=== PATIENT | female | born 1970 | race African-American/Black ===

== ENCOUNTER 2017-07-27 08:02 | Emergency (ER) | payer MEDICAID ==
[2017-07-27] MEDS ORDERED: KETOROLAC TROMETHAMINE INJ/PF 30 MG/1 ML SDV IV ONE (08:48)
[2017-07-27] MEDS ORDERED: NORMAL SALINE 1000 ML 1,000 ML IV ONE (08:48)
[2017-07-27 09:15] LABS: HEMATOCRIT 27.9 % (36.0-47.0); HEMOGLOBIN 8.1 g/dL (12.0-15.5); HGB HCT DIFFERENCE -3.6; MEAN CORPUSCULAR HEMOGLOBIN 17.6 pg (27.0-33.4); MEAN CORPUSCULAR VOLUME 61 fl (80-97); RED BLOOD COUNT 4.61 10^6/uL (3.72-5.28); RED CELL DISTRIBUTION WIDTH 23.4 % (11.5-14.0); WHITE BLOOD COUNT 7.2 10^3/uL (4.0-10.5)
[2017-07-27 09:33] LABS: ALANINE AMINOTRANSFERASE 89 U/L (9-52); ALBUMIN 4.3 g/dL (3.5-5.0); ALKALINE PHOSPHATASE 97 U/L (38-126); ANION GAP 11 (5-19); ASPARTATE AMINO TRANSFERASE 102 U/L (14-36); BILIRUBIN,DIRECT 0.4 mg/dL (0.0-0.4); BILIRUBIN,TOTAL 0.5 mg/dL (0.2-1.3); BLOOD UREA NITROGEN 13 mg/dL (7-20); CALCIUM 9.8 mg/dL (8.4-10.2); CARBON DIOXIDE 23 mmol/L (22-30); CHLORIDE 107 mmol/L (98-107); CREATININE RESULT 0.79 mg/dL (0.52-1.25); GLUCOSE 83 mg/dL (75-110); LIPASE 446.6 U/L (23-300); SODIUM 140.6 mmol/L (137-145); TOTAL PROTEIN 7.4 g/dL (6.3-8.2)
[2017-07-27 09:35] LABS: APPEARANCE,URINE CLEAR; BILIRUBIN,URINE NEGATIVE (NEGATIVE); GLUCOSE, URINE NEGATIVE (NEGATIVE); KETONES,URINE 20 mg/dL (NEGATIVE); LEUKOCYTE ESTERASE,URINE NEGATIVE (NEGATIVE); NITRITE,URINE NEGATIVE (NEGATIVE); PROTEIN,URINE 30 mg/dL (NEGATIVE); URINE SPECIFIC GRAVITY 1.023
[2017-07-27 09:37] LABS: EOSINOPHILS % (MANUAL) 0 % (0-6); LYMPHOCYTES % (MANUAL) 23 % (13-45); TOTAL CELLS COUNTED 100
[2017-07-27 09:39] LABS: HYPOCHROMASIA 2+; MICROCYTOSIS 2+; POLYCHROMASIA SLIGHT
[2017-07-27 09:40] LABS: ANISOCYTOSIS 4+; BASOPHILS % (MANUAL) 5 % (0-2); POIKILOCYTOSIS 1+; SCHISTOCYTES SLIGHT; TARGET CELLS SLIGHT
--- NOTE | 2017-07-27 09:43 | RADIOLOGY REPORT (SQ) ---
EXAM DESCRIPTION: CT LTD RENAL STONE PROTOCOL ON COMPLETED DATE/TIME: 07/27/2017 9:30 am REASON FOR STUDY: right flank pain COMPARISON: None. TECHNIQUE: CT scan of the abdomen and pelvis performed without intravenous or oral contrast. Images reviewed with lung, soft tissue, and bone windows. Reconstructed coronal and sagittal MPR images revi ewed. All images stored on PACS. All CT scanners at this facility use dose modulation, iterative reconstruction, and/or weight based d osing when appropriate to reduce radiation dose to as low as reasonably achievable (ALARA). [facility]: Dose Right [facility]: CareDose [facility]: Dose Right [facility]: Teradose 4D [facility]: [employer] RADIATION DOSE: Up-to-date CT equipment and radiation dose reduction techniques were employed. CTDIv ol: 17.9 mGy. DLP: 972 mGy-cm.mGy. LIMITATIONS: None. FINDINGS: LOWER CHEST: No significant findings. No nodules or infiltrates. NON-CONTRASTED LIVER, SPLEEN, ADRENALS: Evaluation limited by lack of IV contrast. No identified sign ificant masses. PANCREAS: No masses. No peripancreatic inflammatory changes. GALLBLADDER: Surgically absent. RIGHT KIDNEY AND URETER: No suspicious masses. Assessment limited by lack of IV contrast. No signif icant calcifications. No hydronephrosis or hydroureter. LEFT KIDNEY AND URETER: No suspicious masses. Assessment limited by lack of IV contrast. No signifi cant calcifications. No hydronephrosis or hydroureter. AORTA AND RETROPERITONEUM: No aneurysm. No retroperitoneal masses or adenopathy. BOWEL AND PERITONEAL CAVITY: Previous gastric bypass surgery. No obvious masses or inflammatory saenz ges. No free fluid. APPENDIX: Normal. PELVIS, BLADDER, AND ABDOMINAL WALL:Enlarged heterogenous uterus. No free fluid. Bladder normal. Inc isional hernia in the upper abdominal wall containing fat only. BONES: No significant findings. OTHER: No other significant finding. IMPRESSION: 1. PREVIOUS GASTRIC BYPASS SURGERY. INCISIONAL HERNIA IN THE UPPER ABDOMINAL WALL CONTAINING MESENTE DEISI FAT ONLY. 2. ENLARGED HETEROGENOUS UTERUS PROBABLY DUE TO UTERINE FIBROIDS. 3. NO OTHER SIGNIFICANT OR ACUTE PROCESS IN THE ABDOMEN OR PELVIS. COMMENT: Quality ID # [id number]: Final reports with documentation of one or more dose reduction techniques (e.g., Automated exposure control, adjustment of the mA and/or kV according to patient size, use of iterative reconstruction technique) TECHNICAL DOCUMENTATION: JOB ID: [id number] [employer] [facility]- All Rights Reserved
[2017-07-27] MEDS ORDERED: CYCLOBENZAPRINE HCL 10 MG TABLET PO ONE (10:22)
--- NOTE | 2017-07-27 10:22 | ER Document Report ---
ED GI/ - General Chief Complaint: Flank Pain Stated Complaint: BACK PAIN Time Seen by Provider: 07/27/17 08:36 Mode of Arrival: Ambulatory Information source: Patient Notes: Patient is a 47-year-old female who presents to the ER today for right lower back pain 4 days. Patient admits to some nausea but no vomiting. She denies any dysuria, history of kidney stones, hematuria. She denies any injury, heavy lifting. TRAVEL OUTSIDE OF THE [place] IN LAST 30 DAYS: No - Related Data Allergies/Adverse Reactions: No Known Allergies Allergy (Verified 07/27/17 08:06) Past Medical History - General Information source: Patient - Social History Smoking Status: Current Every Day Smoker Chew tobacco use (# tins/day): No Frequency of alcohol use: Social Drug Abuse: None Family History: Reviewed & Not Pertinent Patient has suicidal ideation: No Patient has homicidal ideation: No Renal/ Medical History: Denies: Hx Peritoneal Dialysis Psychiatric Medical History: Denies: Hx Depression Past Surgical History: Reports: Hx Abdominal Surgery - gastric bypass, Hx Cholecystectomy, Hx Gastric Bypass Surgery, Hx Tubal Ligation - Immunizations Hx Diphtheria, Pertussis, Tetanus Vaccination: Yes Review of Systems - Review of Systems Constitutional: No symptoms reported EENT: No symptoms reported Cardiovascular: No symptoms reported Respiratory: No symptoms reported Gastrointestinal: No symptoms reported Genitourinary: See HPI Female Genitourinary: No symptoms reported Musculoskeletal: See HPI Skin: No symptoms reported Hematologic/Lymphatic: No symptoms reported Neurological/Psychological: No symptoms reported Physical Exam - Vital signs Vitals: Temp Pulse Resp BP Pulse Ox 99.1 F 93 18 131/94 H 99 07/27/17 08:06 07/27/17 08:06 07/27/17 08:06 07/27/17 08:06 07/27/17 08:06 - Notes Notes: PHYSICAL EXAMINATION: GENERAL: Uncomfortable appearing, but in no acute distress. HEAD: Atraumatic, normocephalic. EYES: Pupils equal round and reactive to light, extraocular movements intact, sclera anicteric, conjunctiva are normal. NECK: Normal range of motion, supple without lymphadenopathy LUNGS: CTAB and equal. No wheezes rales or rhonchi. HEART: Regular rate and rhythm without murmurs ABDOMEN: Soft, no tenderness. No guarding, no rebound BACK: no vertebral tenderness, normal ROM GI/: no CVA tenderness EXTREMITIES: Normal range of motion, no pitting edema. No cyanosis. NEUROLOGICAL: Cranial nerves grossly intact. Normal sensory/motor exams. PSYCH: Normal mood, normal affect. SKIN: Warm, Dry, normal turgor, no rashes or lesions noted Course - Re-evaluation Re-evalutation: 07/27/17 10:20 lab work is unremarkable, urinalysis is unremarkable, no hematuria, CAT scan renal protocol reveals no acute pathology. Patient be sent home with muscle relaxers for low back pain. - Vital Signs Vital signs: Temp Pulse Resp BP Pulse Ox 99.1 F 93 18 131/94 H 100 07/27/17 08:06 07/27/17 08:06 07/27/17 08:06 07/27/17 08:06 07/27/17 09:18 - Laboratory Result Diagrams: 07/27/17 08:57 07/27/17 08:57 Laboratory results interpreted by me: 07/27/17 07/27/17 07/27/17 08:57 08:57 08:57 Hgb 8.1 L Hct 27.9 L MCV 61 L MCH 17.6 L MCHC 29.0 L RDW 23.4 H Basophils % (Manual) 5 H Abs Basophils (Manual) 0.4 H AST 102 H ALT 89 H Lipase 446.6 H Urine Protein 30 H Urine Ketones 20 H Urine Urobilinogen 2.0 H Discharge - Discharge Clinical Impression: Low back pain Qualifiers: Chronicity: acute Back pain laterality: right Sciatica presence: without sciatica Qualified Code(s): M54.5 - Low back pain Condition: Stable Disposition: HOME, SELF-CARE Additional Instructions: Return immediately for any new or worsening symptoms. Follow up with primary care provider, call tomorrow to make followup appointment. Prescriptions: Cyclobenzaprine HCl [Flexeril 10 mg Tablet] 10 mg PO TIDP PRN #15 tab PRN Reason:
[2017-07-27 10:34] VITALS: BP 150/91
== END 2017-07-27 10:34 | disposition home or self-care (01) ==
LOC: ER 08:02
DX: M54.5 Low back pain (principal); R11.0 Nausea; F17.200 Nicotine dependence, unspecified, uncomplicated; Z98.84 Bariatric surgery status; Z90.49 Acquired absence of other specified parts of digestive tract; Z98.51 Tubal ligation status
CPT/HCPCS: 99284; 96361; 96374; 36415; 83690; 85025; 81025; 80053; 81001; 76380; J3490; J1885; J7030

== ENCOUNTER 2017-08-26 08:30 | Emergency (ER) | payer MEDICAID ==
--- NOTE | 2017-08-26 09:06 | ER Document Report ---
ED General - General Chief Complaint: Flank Pain Stated Complaint: LOWER BACK AND ABDOMINAL PAIN Time Seen by Provider: 08/26/17 09:01 Mode of Arrival: Ambulatory Information source: Patient TRAVEL OUTSIDE OF THE [place] IN LAST 30 DAYS: No - HPI Onset: Other - 3 weeks Onset/Duration: Gradual, Constant Quality of pain: Dull Associated symptoms: None Exacerbated by: Denies Relieved by: Denies Recently seen / treated by doctor: Yes Notes: Patient is a 47-year-old female with no significant medical problems. Patient reports a 3 week history of right lower back pain not associated with trauma. Patient was seen by her primary care provider for same and given muscle relaxers for a presumed muscular skeletal etiology. Patient states the pain is continuing. Patient also reports a one-week history of abdominal pain. No vomiting or diarrhea. No fevers or chills. She does not have any urinary complaints. - Related Data Allergies/Adverse Reactions: No Known Allergies Allergy (Verified 08/26/17 08:34) Past Medical History - General Information source: Patient - Social History Smoking Status: Never Smoker Family History: Reviewed & Not Pertinent Renal/ Medical History: Denies: Hx Peritoneal Dialysis Psychiatric Medical History: Denies: Hx Depression Past Surgical History: Reports: Hx Abdominal Surgery - gastric bypass, Hx Cholecystectomy, Hx Gastric Bypass Surgery, Hx Tubal Ligation - Immunizations Hx Diphtheria, Pertussis, Tetanus Vaccination: Yes Review of Systems - Review of Systems Gastrointestinal: Abdominal pain. denies: Diarrhea, Nausea, Vomiting, Constipation -: Yes All other systems reviewed and negative Physical Exam - Vital signs Vitals: Temp Pulse Resp BP Pulse Ox 98.3 F 91 16 144/83 H 100 08/26/17 08:34 08/26/17 08:34 08/26/17 08:34 08/26/17 08:34 08/26/17 08:34 Interpretation: Normal - General General appearance: Appears well, Alert - HEENT Head: Normocephalic, Atraumatic Eyes: Normal Pupils: PERRL - Respiratory Respiratory status: No respiratory distress Chest status: Nontender Breath sounds: Normal Chest palpation: Normal - Cardiovascular Rhythm: Regular Heart sounds: Normal auscultation Murmur: No - Abdominal Inspection: Normal Distension: No distension Bowel sounds: Normal Tenderness: Nontender Organomegaly: No organomegaly - Back Back: Normal, Nontender. No: CVA tenderness - Extremities General upper extremity: Normal inspection, Nontender, Normal color, Normal ROM , Normal temperature General lower extremity: Normal inspection, Nontender, Normal color, Normal ROM , Normal temperature, Normal weight bearing. No: Katie's sign - Neurological Neuro grossly intact: Yes Cognition: Normal Orientation: AAOx4 Gilbert Coma Scale Eye Opening: Spontaneous Gilbert Coma Scale Verbal: Oriented Katie Coma Scale Motor: Obeys Commands Katie Coma Scale Total: 15 Speech: Normal Motor strength normal: LUE, RUE, LLE, RLE Sensory: Normal - Psychological Associated symptoms: Normal affect, Normal mood - Skin Skin Temperature: Warm Skin Moisture: Dry Skin Color: Normal Course - Re-evaluation Re-evalutation: 08/26/17 09:47 Lab reported patient's hemoglobin is 7.2. When compared with previous hemoglobin reports, not significantly changed from baseline. 08/26/17 10:10 Lipase minimally elevated. Doubt that is the source of patient's right flank pain. Will get CT renal stone protocol due to some blood in the urine. 08/26/17 10:47 Emergency department workup reviewed and discussed with patient. Need for primary care follow-up discussed as well. We will treat her pain. Patient is aware of her chronic anemia. - Vital Signs Vital signs: Temp Pulse Resp BP Pulse Ox 98.3 F 91 16 144/83 H 100 08/26/17 08:34 08/26/17 08:34 08/26/17 08:34 08/26/17 08:34 08/26/17 08:34 - Laboratory Result Diagrams: 08/26/17 09:28 08/26/17 09:28 Laboratory results interpreted by me: 08/26/17 08/26/17 08/26/17 09:20 09:28 09:28 Hgb 7.2 L Hct 23.9 L MCV 59 L MCH 17.7 L MCHC 30.1 L RDW 21.2 H AST 56 H Lipase 454.8 H Urine Protein 30 H Urine Ketones TRACE H Urine Blood SMALL H Urine Urobilinogen 4.0 H - Diagnostic Test Radiology reviewed: Reports reviewed Radiology results interpreted by me: 08/26/17 10:46 CT abdomen pelvis report is nothing acute per radiologist. Discharge - Discharge Clinical Impression: Flank pain Condition: Good Disposition: HOME, SELF-CARE Instructions: Flank Pain ([facility]) Additional Instructions: Follow-up with your primary care provider. Return to the emergency department if worse or for any other problems. Prescriptions: Tramadol HCl 50 mg PO QIDP PRN #20 tablet PRN Reason: pain
[2017-08-26 09:39] LABS: APPEARANCE,URINE SLIGHTLY-CLOUDY; BILIRUBIN,URINE NEGATIVE (NEGATIVE); GLUCOSE, URINE NEGATIVE (NEGATIVE); KETONES,URINE TRACE mg/dL (NEGATIVE); LEUKOCYTE ESTERASE,URINE NEGATIVE (NEGATIVE); NITRITE,URINE NEGATIVE (NEGATIVE); PROTEIN,URINE 30 mg/dL (NEGATIVE); URINE SPECIFIC GRAVITY 1.025
[2017-08-26 09:42] LABS: HEMATOCRIT 23.9 % (36.0-47.0); HGB HCT DIFFERENCE -2.3; MEAN CORPUSCULAR HEMOGLOBIN 17.7 pg (27.0-33.4); MEAN CORPUSCULAR HGB CONC 30.1 g/dL (32.0-36.0); MEAN CORPUSCULAR VOLUME 59 fl (80-97); RED BLOOD COUNT 4.07 10^6/uL (3.72-5.28); RED CELL DISTRIBUTION WIDTH 21.2 % (11.5-14.0)
[2017-08-26 10:01] LABS: ALANINE AMINOTRANSFERASE 44 U/L (9-52); ALKALINE PHOSPHATASE 111 U/L (38-126); ANION GAP 10 (5-19); ASPARTATE AMINO TRANSFERASE 56 U/L (14-36); BILIRUBIN,DIRECT 0.4 mg/dL (0.0-0.4); BILIRUBIN,TOTAL 0.5 mg/dL (0.2-1.3); BLOOD UREA NITROGEN 10 mg/dL (7-20); CALCIUM 9.5 mg/dL (8.4-10.2); CARBON DIOXIDE 26 mmol/L (22-30); CHLORIDE 105 mmol/L (98-107); CREATININE RESULT 0.66 mg/dL (0.52-1.25); GLUCOSE 93 mg/dL (75-110); LIPASE 454.8 U/L (23-300); POTASSIUM 3.6 mmol/L (3.6-5.0); SODIUM 140.9 mmol/L (137-145); TOTAL PROTEIN 6.9 g/dL (6.3-8.2)
[2017-08-26 10:05] LABS: BASOPHILS % (MANUAL) 1 % (0-2); EOSINOPHILS % (MANUAL) 0 % (0-6); LYMPHOCYTES % (MANUAL) 22 % (13-45); TOTAL CELLS COUNTED 100
[2017-08-26 10:11] LABS: POLYCHROMASIA 1+
[2017-08-26 10:12] LABS: ANISOCYTOSIS 2+; HYPOCHROMASIA 4+; MICROCYTOSIS 4+
[2017-08-26 10:14] LABS: HEMOGLOBIN 7.2 g/dL (12.0-15.5)
--- NOTE | 2017-08-26 10:43 | RADIOLOGY REPORT (SQ) ---
EXAM DESCRIPTION: CT LTD RENAL STONE PROTOCOL ON COMPLETED DATE/TIME: 08/26/2017 10:22 am REASON FOR STUDY: right flank pain, hematuria COMPARISON: 07/27/2017 TECHNIQUE: CT scan of the abdomen and pelvis performed without intravenous or oral contrast. Images reviewed with lung, soft tissue, and bone windows. Reconstructed coronal and sagittal MPR images revi ewed. All images stored on PACS. All CT scanners at this facility use dose modulation, iterative reconstruction, and/or weight based d osing when appropriate to reduce radiation dose to as low as reasonably achievable (ALARA). [facility]: Dose Right [facility]: CareDose [facility]: Dose Right [facility]: Teradose 4D [facility]: [employer] RADIATION DOSE: Up-to-date CT equipment and radiation dose reduction techniques were employed. CTDIv ol: 18.4 mGy. DLP: 928 mGy-cm.mGy. LIMITATIONS: None. FINDINGS: LOWER CHEST: No significant findings. No nodules or infiltrates. NON-CONTRASTED LIVER, SPLEEN, ADRENALS: Evaluation limited by lack of IV contrast. No identified sign ificant masses. PANCREAS: No masses. No peripancreatic inflammatory changes. GALLBLADDER: Status post cholecystectomy RIGHT KIDNEY AND URETER: No suspicious masses. Assessment limited by lack of IV contrast. No signif icant calcifications. No hydronephrosis or hydroureter. LEFT KIDNEY AND URETER: No suspicious masses. Assessment limited by lack of IV contrast. No signifi cant calcifications. No hydronephrosis or hydroureter. AORTA AND RETROPERITONEUM: No aneurysm. No retroperitoneal masses or adenopathy. BOWEL AND PERITONEAL CAVITY: No obvious masses or inflammatory changes. No free fluid. APPENDIX: Normal. PELVIS, BLADDER, AND ABDOMINAL WALL The previously described enlarged heterogeneous uterus is again i dentified and appears unchanged. Again the appearance is most consistent with a fibroid uterus. No f ree fluid. Bladder normal. The previously described incisional hernia containing fat in the upper ab domen is again identified and appears unchanged BONES: No significant findings. OTHER: Again the patient is status post prior gastric bypass surgery. IMPRESSION: No significant interval change as compared to the previous study. The previously descri bed incisional hernia in the upper abdomen containing fat is again identified and appears unchanged. The previously described enlarged heterogeneous uterus is again identified and appears unchanged. O ther findings as noted above COMMENT: Quality ID # [id number]: Final reports with documentation of one or more dose reduction techniques (e.g., Automated exposure control, adjustment of the mA and/or kV according to patient size, use of iterative reconstruction technique) TECHNICAL DOCUMENTATION: JOB ID: [id number] [employer]- All Rights Reserved
[2017-08-26] MEDS ORDERED: TRAMADOL HCL 50 MG TABLET PO ONE (10:59)
[2017-08-26 11:17] VITALS: BP 139/87
== END 2017-08-26 11:17 | disposition home or self-care (01) ==
LOC: ER 08:30
DX: R10.9 Unspecified abdominal pain (principal); M54.5 Low back pain; D64.9 Anemia, unspecified; R31.9 Hematuria, unspecified; R74.8 Abnormal levels of other serum enzymes; Z98.84 Bariatric surgery status; Z90.49 Acquired absence of other specified parts of digestive tract
CPT/HCPCS: 36415; 76380; 80053; 81001; 83690; 85025; 99284

== ENCOUNTER 2019-07-19 08:10 | Emergency (ER) | payer MEDICAID ==
[2019-07-19] MEDS ORDERED: MORPHINE SULFATE 10 MG/ML INJ IV ONE (09:07)
--- NOTE | 2019-07-19 09:07 | ER Document Report ---
ED GI/ - General Chief Complaint: Flank Pain Stated Complaint: LOWER BACK PAIN Time Seen by Provider: 07/19/19 08:51 Primary Care Provider: [facility] [Provider Group] - Follow up tomorrow Notes: Patient is a 49-year-old female who presents emergency department with a chief complaint of right-sided back pain. She states that she has had her pain for the past 2 and half weeks. She was not doing anything in particular, but she was opening up a sippy cup 2 days ago and her back pain. She states it feels like there is a kidney stone. She took some Advil, but has not had the past 2 days. Pain comes and goes. Patient surgical history of a gastric bypass 15 years ago she also has had a cholecystectomy. She has had a tubal ligation. Patient states that she is anemic and has had multiple blood transfusions in the past. Denies any dysuria, hematuria, diarrhea, or vomiting. She states that she sometimes feels nauseous when the pain comes, but is not nauseous at this time. Patient states that she has dark stools, but states she is currently on iron. TRAVEL OUTSIDE OF THE [place] IN LAST 30 DAYS: No - Related Data Allergies/Adverse Reactions: No Known Allergies Allergy (Verified 07/19/19 08:13) Past Medical History - Social History Smoking Status: Current Every Day Smoker Frequency of alcohol use: Social Drug Abuse: None Family History: Reviewed & Not Pertinent Patient has suicidal ideation: No Patient has homicidal ideation: No Renal/ Medical History: Denies: Hx Peritoneal Dialysis Psychiatric Medical History: Denies: Hx Depression Past Surgical History: Reports: Hx Abdominal Surgery - gastric bypass, Hx Cholecystectomy, Hx Gastric Bypass Surgery, Hx Tubal Ligation - Immunizations Hx Diphtheria, Pertussis, Tetanus Vaccination: Yes Review of Systems - Review of Systems Notes: REVIEW OF SYSTEMS: CONSTITUTIONAL : Denies recent illness. Denies recent unintentional weight loss. Denies fever, chills, or sweats. EENT: Denies eye, ear, throat, or mouth pain, discharge, or symptoms. Denies nasal or sinus congestion. CARDIOVASCULAR: Denies chest pain. RESPIRATORY: Denies shortness of breath, cough, congestion, difficulty breathing, or wheezing. GASTROINTESTINAL: See HPI. GENITOURINARY: Denies difficulty urinating, burning, blood in urine, urgency or frequency. MUSCULOSKELETAL: See HPI. Denies joint pain or swelling. SKIN: Denies rash, itchiness, or lesions HEMATOLOGIC : Denies easy bruising or bleeding. LYMPHATIC: Denies swollen, painful, enlarged glands. NEUROLOGICAL: Denies no numbness or tingling denies weakness. Denies headache. Denies altered mental status. Denies alteration in speech. PSYCHIATRIC: Denies stress, anxiety, alteration in sleep patterns, or depression. All other systems reviewed and negative. Physical Exam - Vital signs Vitals: Temp Pulse Resp BP Pulse Ox 98.6 F 109 H 16 143/72 H 98 07/19/19 08:13 07/19/19 08:13 07/19/19 08:13 07/19/19 08:13 07/19/19 08:13 - Notes Notes: PHYSICAL EXAMINATION: GENERAL: Appears well, healthy, well-nourished, no acute distress. HEAD: Normocephalic, atraumatic. EYES: PERRL, conjunctiva normal, all extraocular movements intact, sclera nonicteric ENT: Moist mucous membranes. NECK: Supple, no noticeable swelling, redness, rash. Normal range of motion. LUNGS: Equal breath sounds bilaterally and clear to auscultation. No wheezes rales or rhonchi. CARDIOVASCULAR: S1-S2, regular rate, regular rhythm. Radial pulses 2+, normal. ABDOMEN: Normoactive bowel sounds. Soft, tenderness noted to right side of abdomen. Palpable mass to the mid left abdomen. EXTREMITIES: Normal strength and range of motion, no pitting or edema. No cyanosis. NEUROLOGICAL: Moves all extremities upon command. Strength 5/5 in all extremities. PSYCH: Normal mood, normal affect. SKIN: Warm, dry. No rash, lesions, ulcerations noted. Normal skin turgor. Course - Re-evaluation Re-evalutation: 07/19/19 09:40 Patient's hemoglobin is 6 at this time. She will be typed and screened and transfused 2 units of PRBCs.Beautiful day today but he was commenting about patient's hematocrit is 20.9. No leukocytosis noted. Chemistries show a lipase of 422. AST is elevated at 153. 07/19/19 12:00 Patient states her son has autism and she needs to pick him up from the bus at 1400. I spoke with Fitz, the director of casework department. She will speak with the patient. 07/19/19 13:[address] of the abdomen pelvis shows duct dilation. I called Dr. Bansal, the GI doctor on-call. He does not to ERCPs. I will call in another facility. 07/19/19 13:05 I called [facility] and left a message. Awaiting callback. 07/19/19 13:11 [facility] and the GI doctor instrument person does not do ERCP's. 07/19/19 13:17 I called [facility] and images will be sent. 07/19/19 14:53 I spoke with SANTIAGO Batres at [facility]. The patient will be accepted for transfer for an ERCP. 07/19/19 17:03 Patient's urinalysis is back and it shows a large amount of blood. Patient states that she is hungry and there is apparently a wait list at [facility]. I will order a diet for the patient at this time. Once the patient has a bed assignment at [facility], the patient will be placed n.p.o. in hopes for a helpful ERCP. 07/19/19 20:26 The patient has decided to leave AGAINST MEDICAL ADVICE. Discussed the risks of leaving. She is still wanting to leave. She received her 2 units of PRBCs here in the emergency department. I told her that if she continues to have pain, she needs to immediately go to [facility]. I called [facility] and informed them that the patient is leaving AGAINST MEDICAL ADVICE. She is to follow-up with her primary care provider and I gave contact information for [facility]. - Vital Signs Vital signs: Temp Pulse Resp BP Pulse Ox 98.1 F 79 16 142/82 H 97 07/19/19 20:38 07/19/19 20:38 07/19/19 20:38 07/19/19 20:38 07/19/19 20:38 - Laboratory Result Diagrams: 07/19/19 09:14 07/19/19 09:14 Laboratory results interpreted by me: 07/19/19 07/19/19 07/19/19 09:14 09:14 09:40 RBC 3.63 L Hgb 6.0 L Hct 20.9 L MCV 58 L MCH 16.4 L MCHC 28.6 L RDW 23.4 H Basophils % (Manual) 3 H Abs Basophils (Manual) 0.3 H Chloride 111 H AST 153 H Lipase 422.3 H Urine Blood Urine Urobilinogen Crossmatch See Detail 07/19/19 15:25 RBC Hgb Hct MCV MCH MCHC RDW Basophils % (Manual) Abs Basophils (Manual) Chloride AST Lipase Urine Blood LARGE H Urine Urobilinogen 4.0 H Crossmatch Discharge - Discharge Clinical Impression: Abdominal pain Qualifiers: Abdominal location: right upper quadrant Qualified Code(s): R10.11 - Right upper quadrant pain Anemia Qualifiers: Anemia type: iron deficiency Iron deficiency anemia type: unspecified iron deficiency Qualified Code(s): D50.9 - Iron deficiency anemia, unspecified Condition: Fair Disposition: AGAINST MEDICAL ADVICE Additional Instructions: You were seen today in the emergency department for abdominal pain. Your blood counts were low and you received 2 units of blood here in the emergency department. You need to have an ERCP done to evaluate your gallbladder duct. You are being sent home with [place], medication for pain. You can take 1 tablet every 6 hours as needed. Please use these sparingly, as you only have a limited amount. You were scheduled to go to [facility], but are deciding to leave AGAINST MEDICAL ADVICE. If you continue to have pain of have worsening pain, please go straight to [facility] in [place]. Please follow- up with your primary care provider tomorrow. If you choose to follow-up outpatient with the GI doctor, you can call the information below. Please try to make an appointment. [facility] [phone] [facility] [address] [place], [id number] [facility] [Provider Group] - Follow up tomorrow
[2019-07-19] MEDS ORDERED: NORMAL SALINE 1000 ML 1,000 ML IV ONE (09:08)
[2019-07-19] MEDS ORDERED: NORMAL SALINE 250 ML IV PRN (09:38)
[2019-07-19 09:46] LABS: HEMATOCRIT 20.9 % (36.0-47.0); MEAN CORPUSCULAR HEMOGLOBIN 16.4 pg (27.0-33.4); MEAN CORPUSCULAR HGB CONC 28.6 g/dL (32.0-36.0); MEAN CORPUSCULAR VOLUME 58 fl (80-97); PLATELET COUNT 385 10^3/uL (150-450); RED BLOOD COUNT 3.63 10^6/uL (3.72-5.28); RED CELL DISTRIBUTION WIDTH 23.4 % (11.5-14.0); WHITE BLOOD COUNT 8.4 10^3/uL (4.0-10.5)
[2019-07-19 09:56] LABS: ALBUMIN 3.7 g/dL (3.5-5.0); ALKALINE PHOSPHATASE 119 U/L (38-126); ANION GAP 7 (5-19); ASPARTATE AMINO TRANSFERASE 153 U/L (14-36); BILIRUBIN,DIRECT 0.1 mg/dL (0.0-0.4); BILIRUBIN,TOTAL 0.4 mg/dL (0.2-1.3); BLOOD UREA NITROGEN 11 mg/dL (7-20); CALCIUM 9.1 mg/dL (8.4-10.2); CARBON DIOXIDE 24 mmol/L (22-30); CHLORIDE 111 mmol/L (98-107); GLUCOSE 79 mg/dL (75-110); POTASSIUM 3.6 mmol/L (3.6-5.0); TOTAL PROTEIN 6.7 g/dL (6.3-8.2)
[2019-07-19 10:10] LABS: ABSOLUTE LYMPHOCYTES# (MANUAL) 2.3 10^3/uL (0.5-4.7); ABSOLUTE MONOCYTES # (MANUAL) 0.4 10^3/uL (0.1-1.4); BASOPHILS % (MANUAL) 3 % (0-2); EOSINOPHILS % (MANUAL) 1 % (0-6); LYMPHOCYTES % (MANUAL) 24 % (13-45); MONOCYTES % (MANUAL) 5 % (3-13); SEGMENTED NEUTROPHILS % (MAN) 64 % (42-78); TOTAL CELLS COUNTED 100
[2019-07-19 10:12] LABS: ANISOCYTOSIS 3+; HYPOCHROMASIA 3+; OVALOCYTES SLIGHT; PLATELET COMMENT ADEQUATE; POIKILOCYTOSIS SLIGHT; POLYCHROMASIA 1+; TARGET CELLS SLIGHT; TEAR DROP CELLS SLIGHT
--- NOTE | 2019-07-19 10:51 | RADIOLOGY REPORT (SQ) ---
EXAM DESCRIPTION: CT ABD/PELVIS WITH IV ONLY COMPLETED DATE/TIME: 07/19/2019 10:23 am REASON FOR STUDY: abd/flank pain COMPARISON: 08/26/2017 TECHNIQUE: CT scan of the abdomen and pelvis performed using helical scanning technique with dynamic intravenous contrast injection. No oral contrast. Images reviewed with lung, soft tissue, and bone windows. Reconstructed coronal and sagittal MPR images reviewed. Delayed images for evaluation of the urinary system also acquired. All images stored on PACS. All CT scanners at this facility use dose modulation, iterative reconstruction, and/or weight based d osing when appropriate to reduce radiation dose to as low as reasonably achievable (ALARA). [facility]: Dose Right [facility]: CareDose [facility]: Dose Right [facility]: Teradose 4D [facility]: [employer] CONTRAST TYPE AND DOSE: contrast/concentration: Isovue 350.00 mg/ml; Total Contrast Delivered: 100.0 ml; Total Saline Delivered: 46.6 ml RENAL FUNCTION: Creatinine 0.63 RADIATION DOSE: CT Rad equipment meets quality standard of care and radiation dose reduction techniq ues were employed. CTDIvol: 18.9 - 20.2 mGy. DLP: 2052 mGy-cm.. LIMITATIONS: None. FINDINGS: LOWER CHEST: No significant findings. No nodules or infiltrates. LIVER: Normal size. No masses. No dilated ducts. SPLEEN: Normal size. No focal lesions. PANCREAS: No masses. No significant calcifications. No adjacent inflammation or peripancreatic fluid collections. Pancreatic duct not dilated. GALLBLADDER: Surgically absent. CBD is dilated measuring up to 18 mm, increased from prior. No sign ificant intrahepatic ductal dilation. ADRENAL GLANDS: No significant masses or asymmetry. RIGHT KIDNEY AND URETER: No solid masses. No significant calcifications. No hydronephrosis or hyd roureter. LEFT KIDNEY AND URETER: No solid masses. No significant calcifications. No hydronephrosis or hydr oureter. AORTA AND VESSELS: No aneurysm. No dissection. Renal arteries, SMA, celiac without stenosis. RETROPERITONEUM: No retroperitoneal adenopathy or hemorrhage. BOWEL AND PERITONEAL CAVITY: Evidence of prior gastric bypass. Anastomotic staple line within the le ft lower quadrant with mild dilated bowel loop, likely postsurgical. No focal bowel wall thickening. No evidence of intestinal obstruction. APPENDIX: (series 601, image 26 - 29). PELVIS: Unremarkable urinary bladder. I unchanged enlarged heterogeneous uterus likely secondary to uterine leiomyoma. No free fluid or adenopathy. ABDOMINAL WALL: Unchanged fat containing midline upper abdominal hernia. No mass. BONES: No acute bony abnormality. No suspicious lytic or blastic osseous lesions. OTHER: No other significant finding. IMPRESSION: 1. Status post cholecystectomy with dilation of the CBD measuring up to 17 mm, more julio cesar n expected status post cholecystectomy and mildly increased from prior exams. No significant intrahe patic ductal dilation or distal obstructing lesion identified. Recommend correlation with LFTs. MRC P or ERCP could be considered if clinical evidence of biliary obstruction. 2. Normal appendix without other evidence of acute intra-abdominal/pelvic process. TECHNICAL DOCUMENTATION: JOB ID: [id number] Quality ID # [id number]: Final reports with documentation of one or more dose reduction techniques (e.g., Au tomated exposure control, adjustment of the mA and/or kV according to patient size, use of iterative reconstruction technique) 2010 [employer]- All Rights Reserved Reading location - IP/workstation name: [email or web address]
[2019-07-19] MEDS ORDERED: HYDROCODONE/ACETAMINOPHEN 5-325 MG TABLET PO ONE (13:56)
[2019-07-19 15:48] LABS: APPEARANCE,URINE CLEAR; BILIRUBIN,URINE NEGATIVE (NEGATIVE); COLOR,URINE YELLOW; GLUCOSE, URINE NEGATIVE (NEGATIVE); KETONES,URINE NEGATIVE (NEGATIVE); LEUKOCYTE ESTERASE,URINE NEGATIVE (NEGATIVE); NITRITE,URINE NEGATIVE (NEGATIVE); PROTEIN,URINE NEGATIVE (NEGATIVE); URINE SPECIFIC GRAVITY 1.056
[2019-07-19] MEDS ORDERED: HYDROCODONE/ACETAMINOPHEN 5-325 MG (6 TAB/ER DISP) PO PRN (20:21)
[2019-07-19 20:51] VITALS: BP 142/82
== END 2019-07-19 20:45 | disposition left against medical advice (07) ==
LOC: ER 08:10
DX: R10.11 Right upper quadrant pain (principal); D50.9 Iron deficiency anemia, unspecified; M54.5 Low back pain; R11.0 Nausea; F17.200 Nicotine dependence, unspecified, uncomplicated
CPT/HCPCS: 86900; 86901; 36415; 36430; 86870; 86850; 86922; 83690; 85025; 80053; 81001; 86920; 74177; P9016; J2270; J7030; J7050; 86902; 87086

== ENCOUNTER 2020-04-30 08:41 | Emergency (ER) | payer MEDICAID, OTHER ==
[2020-04-30] MEDS ORDERED: ONDANSETRON HCL INJ/PF 4 MG/2 ML SDV ONE (10:48)
[2020-04-30] MEDS ORDERED: ONDANSETRON HCL INJ/PF 4 MG/2 ML SDV IV ONE (10:50)
[2020-04-30] MEDS ORDERED: MORPHINE SULFATE 10 MG/ML INJ IV ONE (10:57)
[2020-04-30 11:21] LABS: ALBUMIN 3.2 g/dL (3.5-5.0); ALKALINE PHOSPHATASE 286 U/L (38-126); ANION GAP 11 (5-19); ASPARTATE AMINO TRANSFERASE 193 U/L (14-36); BILIRUBIN,DIRECT 1.2 mg/dL (0.0-0.4); BILIRUBIN,TOTAL 2.5 mg/dL (0.2-1.3); BLOOD UREA NITROGEN 5 mg/dL (7-20); CALCIUM 8.7 mg/dL (8.4-10.2); CARBON DIOXIDE 24 mmol/L (22-30); CHLORIDE 103 mmol/L (98-107); GLUCOSE 77 mg/dL (75-110); TOTAL PROTEIN 6.8 g/dL (6.3-8.2)
[2020-04-30 11:22] LABS: INTERNATIONAL RATION (INR) 1.22; PROTHROMBIN TIME 15.5 SEC (11.4-15.4)
[2020-04-30] MEDS ORDERED: ETOMIDATE INJ/PF 20 MG/10 ML SDV IV ONE (11:23)
[2020-04-30 11:24] LABS: ABSOLUTE BASOPHILS # (AUTO) 0.1 10^3/uL (0.0-0.2); ABSOLUTE EOSINOPHILS # (AUTO) 0.1 10^3/uL (0.0-0.6); ABSOLUTE LYMPHOCYTES (AUTO) 1.2 10^3/uL (0.5-4.7); ABSOLUTE MONOCYTES (AUTO) 1.3 10^3/uL (0.1-1.4); ABSOLUTE NEUT (AUTO) 9.6 10^3/uL (1.7-8.2); BASOPHILS % (AUTO) 0.5 % (0-2); EOSINOPHILS % (AUTO) 0.4 % (0-6); HEMATOCRIT 26.2 % (36.0-47.0); LYMPHOCYTES % (AUTO) 10.1 % (13-45); MEAN CORPUSCULAR HEMOGLOBIN 18.3 pg (27.0-33.4); MEAN CORPUSCULAR HGB CONC 28.9 g/dL (32.0-36.0); MONOCYTES % (AUTO) 10.3 % (3-13); PLATELET COUNT 450 10^3/uL (150-450); RED BLOOD COUNT 4.14 10^6/uL (3.72-5.28); SEGMENTED NEUTROPHILS % (AUTO) 78.7 % (42-78); TOTAL CELLS COUNTED % (AUTO) 100 %; WHITE BLOOD COUNT 12.2 10^3/uL (4.0-10.5)
--- NOTE | 2020-04-30 11:51 | ER Document Report ---
Entered by MENDY MANRIQUE SCRIBE 04/30/20 1047 Acting as scribe for:TRAVIS LY MD ED GI/ - General Mode of Arrival: Ambulatory Information source: Patient TRAVEL OUTSIDE OF THE [place] IN LAST 30 DAYS: No <TRAVIS LY - Last Filed: 04/30/20 14:59> <YASSINE GRAY - Last Filed: 04/30/20 20:50> - General Chief Complaint: Nausea Stated Complaint: NAUSEA Time Seen by Provider: 04/30/20 10:47 Notes: This 49-year-old female patient presents to the emergency department today with complaints of a large mass around her bellybutton. Patient states she has had pain for a few days and she feels like this area is getting larger. Patient is status post Mackenzie-en-Y gastric bypass in 2003. Patient states she is nauseated but has not vomited due to anatomy. Patient states that she frequently is an emic due to malabsorption. (TRAVIS LY) - Related Data Allergies/Adverse Reactions: No Known Allergies Allergy (Verified 07/19/19 08:13) Past Medical History - General Information source: Patient, [facility] Records - Social History Smoking Status: Never Smoker Cigarette use (# per day): No Frequency of alcohol use: None Drug Abuse: None Lives with: Family Family History: Reviewed & Not Pertinent - Medical History Medical History: Negative Past Surgical History: Reports: Hx Cholecystectomy, Hx Gastric Bypass Surgery - Mackenzie-en-Y gastric bypass, frequently anemic due to malabsorption, Hx Tubal Ligation - Immunizations Hx Diphtheria, Pertussis, Tetanus Vaccination: Yes <TRAVIS LY - Last Filed: 04/30/20 14:59> Review of Systems - Review of Systems Constitutional: No symptoms reported EENT: No symptoms reported Cardiovascular: No symptoms reported Respiratory: No symptoms reported Gastrointestinal: See HPI, Abdominal pain, Nausea. denies: Vomiting Genitourinary: No symptoms reported Female Genitourinary: No symptoms reported Musculoskeletal: No symptoms reported Skin: No symptoms reported Hematologic/Lymphatic: No symptoms reported Neurological/Psychological: No symptoms reported -: Yes All other systems reviewed and negative <TRAVIS LY - Last Filed: 04/30/20 14:59> Physical Exam <TRAVIS LY - Last Filed: 04/30/20 14:59> - Vital signs Vitals: Temp Pulse Resp BP Pulse Ox 98.6 F 113 H 20 130/76 H 100 04/30/20 08:45 04/30/20 08:45 04/30/20 08:45 04/30/20 08:45 04/30/20 08:45 - Notes Notes: Physical Exam: General: Alert, appears uncomfortable. HEENT: Normocephalic. Atraumatic. PERRL. Extraocular movements intact. Oroph arynx clear. Neck: Supple. Non-tender. Respiratory: No respiratory distress. Clear and equal breath sounds bilaterally. Cardiovascular: Regular rate and rhythm. Abdominal: Obese. There is a large, firm, umbilical hernia just left of midline and superior to the umbilicus which is exquisitely tender with palpation. No distension. Normal Bowel Sounds. Back: No gross abnormalities. Extremities: Moves all four extremities. Upper extremities: Normal inspection. Normal ROM. Lower extremities: Normal inspection. No edema. Normal ROM. Neurological: Normal cognition. AAOx4. Normal speech. Psychological: Normal affect. Normal Mood. Skin: Warm. Dry. Normal color. (TRAVIS LY) Course - Laboratory Result Diagrams: 04/30/20 10:45 04/30/20 10:45 - Consults Dr. Ibanez Time consulted: 11:10 Consulted provider: will come to ER - Transfer of Care Care transferred to following provider: Dr. Gray <TRAVIS LY - Last Filed: 04/30/20 14:59> - Laboratory Result Diagrams: 04/30/20 10:45 04/30/20 10:45 - Diagnostic Test Radiology reviewed: Image reviewed, Reports reviewed <YASSINE GRAY - Last Filed: 04/30/20 20:50> - Re-evaluation Re-evalutation: 04/30/20 11:09 Patient was given morphine 6 mg IV to reduce her pain and anxiety. An attempt was made to reduce the hernia. With a slow gentle pressure, I was able to reduce some of the hernia and it had a sensation like there was small bowel being reduced. I was not able to fully reduce the hernia, and she states that it still is quite painful. 04/30/20 13:01 I went in to check on the patient about 12:50 PM. 1 of the contrast bottles was open, but it appeared none had been consumed yet. It was marked with times indicating that over three fourths of the bottle should have been consumed by now. She states the nurse just now open the bottle for her and she does not feel she can drink all of the fluid. I encouraged her to start drinking and just slowly sip and that would make its way through her gastric bypass into the intestines where we want to visualize. 04/30/20 13:02 The hemoglobin is 7.6, she has a severe microcytic hypochromic anemia with a normal red cell count. She does admit that she used to get iron transfusions "when I need them". The iron deficiency has been attributed to a mild absorption issue secondary to the Mackenzie-en-Y gastric bypass. Dr. Ibanez had come by to see her earlier, and reduced the part of the hernia that was still outside the abdominal wall using some conscious sedation. She does have elevated LFTs, bilirubin, and lipase. She did have cholecystectomy in the past. This all may be related to her gastric bypass. (TRAVIS LY) 04/30/20 20:44 The patient was signed out to me at shift change since her CT was pending. CT showed a likely fatty liver and a dilated common bile duct (worse than previous imaging). I re-consulted Surgeon Dr. Bunch and he recommended the patient get an MRCP. MRCP was performed and is concerning for possible biliary stricture. Dr. Bunch then spoke with his colleague Dr. Mac who has experience in this area (biliary strictures in patients who have had Gastric Bypass Surgery making ERCP very difficult to perform) and Dr. Mac will see the patient in clinic this week. Patient informed she needs to follow up with Dr. Mac and her PCP. (GRAY,YASSINE Meli) - Vital Signs Vital signs: Temp Pulse Resp BP Pulse Ox 98.2 F 113 H 18 121/71 100 04/30/20 13:02 04/30/20 08:45 04/30/20 19:19 04/30/20 19:19 04/30/20 19:19 - Laboratory Laboratory results interpreted by me: 04/30/20 04/30/20 04/30/20 10:45 10:45 10:45 WBC 12.2 H Hgb 7.6 L Hct 26.2 L MCV 63 L MCH 18.3 L MCHC 28.9 L RDW 26.0 H Lymph % (Auto) 10.1 L Absolute Neuts (auto) 9.6 H Seg Neutrophils % 78.7 H PT 15.5 H Potassium 3.0 L* BUN 5 L Creatinine 0.47 L Total Bilirubin 2.5 H Direct Bilirubin 1.2 H AST 193 H ALT 39 H Alkaline Phosphatase 286 H Albumin 3.2 L Lipase Urine Protein Urine Blood Urine Bilirubin Urine Urobilinogen 04/30/20 04/30/20 10:45 17:20 WBC Hgb Hct MCV MCH MCHC RDW Lymph % (Auto) Absolute Neuts (auto) Seg Neutrophils % PT Potassium BUN Creatinine Total Bilirubin Direct Bilirubin AST ALT Alkaline Phosphatase Albumin Lipase 695.9 H Urine Protein 100 H Urine Blood SMALL H Urine Bilirubin SMALL H Urine Urobilinogen 4.0 H - Transfer of Care Notes: 04/30/20 13:49 Patient is pending oral and IV contrast CT scan of the abdomen. She does have a severe iron absorption deficiency anemia. She came in with an incarcerated ventral hernia that was eventually reduced. She was found to be hypokalemic, with elevation and her bilirubin, transaminases, and lipase compared to [address] Ibanez had recommended doing the CT scan to evaluate her hernia, and any other potential abnormality, as the patient did have a Mackenzie-en-Y gastric bypass 16 years ago. If there are no acute findings on the CT scan, the patient could be discharged home with potassium supplements, instructions to follow-up with [facility] ncology to resume iron transfusions, and to follow-up with [place] [facility]. (TRAVIS LY) Discharge <TRAVIS LY - Last Filed: 04/30/20 14:59> <YASSINE GRAY - Last Filed: 04/30/20 20:50> - Discharge Clinical Impression: Chronic iron deficiency anemia, Biliary stricture Ventral hernia Qualifiers: Obstruction and gangrene presence: without obstruction or gangrene Qualified Code(s): K43.9 - Ventral hernia without obstruction or gangrene Condition: Stable Disposition: HOME, SELF-CARE Instructions: Abdominal Pain ([facility]), Hernia ([facility]), Pancreatitis ([facility]) Additional Instructions: Take Zofran as needed for nausea. Drink plenty of fluids in the days to come. Eat a bland diet in the days to come and avoid fatty foods and alcohol. Follow up with Dr. Mac of Surgery for management of your likely Biliary Stricture. Also follow up with your primary care doctor. Return to an ER if worse. Prescriptions: Ondansetron [Zofran Odt 4 mg Tablet] 4 mg PO Q8H PRN #10 tab.rapdis PRN Reason: Referrals: ROXANNE MAC MD [ACTIVE STAFF] - Follow up as needed I personally performed the services described in the documentation, reviewed and edited the documentation which was dictated to the scribe in my presence, and it accurately records my words and actions.
[2020-04-30 12:06] LABS: HEMOGLOBIN 7.6 g/dL (12.0-15.5)
[2020-04-30 12:10] LABS: MEAN CORPUSCULAR VOLUME 63 fl (80-97)
--- NOTE | 2020-04-30 12:10 | PDOC CONSULTATION ---
Consultation Consult Date: 04/30/20 Provider Consulted: SURGICAL SURGICALIST MD Consult reason:: ventral hernia History of Present Illness Patient complains of: abdominal pain and nausea History of Present Illness: ZACK WYLIE is a 49 year old female seen in consultation at the request of the emergency department. The patient is approximately 16 years status post gastric bypass, that appears to be from an open operation. She has an abdominal wall bulge which has been growing over time. She reports increasing amounts of abd ominal pain and nausea. She reports that her nausea is intermittent, and has been present since her gastric bypass. She is a smoker. She reports smoking every day. She has lost approximately 200 pounds since her gastric bypass. Her BMI is still approximately 35. Patient reports that she "does not vomit" but has nausea almost everyday. Her abdominal pain is sharp and stabbing. It waxes and wanes. She denies fevers, chills, chest pain, shortness of breath, dizziness, orthostasis. Nothing makes it better. Palpation and strenuous activity make it worse. Past Medical History Endocrine Medical History: Reports: Obesity Psychiatric Medical History: Denies: Depression Hematology: Reports: Anemia Past Surgical History Past Surgical History: Reports: Cholecystectomy, Gastric Bypass Surgery - Mackenzie-en-Y gastric bypass, frequently anemic due to malabsorption, Tubal Ligation Social History Lives with: Family Smoking Status: Never Smoker Frequency of Alcohol Use: Occasional Hx Recreational Drug Use: No Hx Prescription Drug Abuse: No Family History Family History: Reviewed & Not Pertinent Parental Family History Reviewed: Yes Children Family History Reviewed: Yes Sibling(s) Family History Reviewed.: Yes Medication/Allergy Home Medications: Tramadol HCl 50 mg PO QIDP PRN #20 tablet 08/26/17 Allergies/Adverse Reactions: No Known Allergies Allergy (Verified 07/19/19 08:13) Review of Systems Constitutional: ABSENT: chills, fatigue, fever(s) Eyes: ABSENT: visual disturbances Ears: ABSENT: hearing changes Nose, Mouth, and Throat: ABSENT: sore throat Cardiovascular: ABSENT: chest pain Respiratory: ABSENT: cough, dyspnea Gastrointestinal: PRESENT: abdominal pain, nausea. ABSENT: vomiting Genitourinary: ABSENT: dysuria Musculoskeletal: ABSENT: back pain Integumentary: ABSENT: pruritus, rash Neurological: ABSENT: confusion, convulsions, dizziness Psychiatric: ABSENT: anxiety, depression Endocrine: ABSENT: cold intolerance, heat intolerance Hematologic/Lymphatic: ABSENT: easy bleeding, easy bruising Physical Exam Vital Signs: Temp Pulse Resp BP Pulse Ox 98.6 F 113 H 22 H 128/72 H 100 04/30/20 08:45 04/30/20 08:45 04/30/20 11:37 04/30/20 11:37 04/30/20 11:37 Intake & Output 04/29/20 04/30/20 05/01/20 06:59 06:59 06:59 Weight 104 kg General appearance: PRESENT: no acute distress Head exam: PRESENT: atraumatic, normocephalic Eye exam: PRESENT: EOMI, PERRLA. ABSENT: scleral icterus Mouth exam: PRESENT: neck supple Teeth exam: PRESENT: poor dentation Neck exam: ABSENT: meningismus, tenderness, tracheal deviation Respiratory exam: PRESENT: unlabored. ABSENT: chest wall tenderness, tachypnea, wheezes Cardiovascular exam: PRESENT: RRR. ABSENT: tachycardia Vascular exam: PRESENT: normal capillary refill GI/Abdominal exam: PRESENT: guarding - Voluntary guarding while palpating the hernia, other - The patient's abdomen is obese, and the hernia defect is difficult to palpate, due to her body habitus. There does appear to be a small bulge to the left of the midline. There is tenderness in this area. Again, the examination is difficult due to her body habitus.. ABSENT: distended, firm Rectal exam: PRESENT: deferred Extremities exam: ABSENT: clubbing Musculoskeletal exam: ABSENT: deformity Neurological exam: PRESENT: alert, awake, oriented to person, oriented to place, oriented to time, oriented to situation Psychiatric exam: ABSENT: agitated, anxious, depressed Focused psych exam: ABSENT: delusional Skin exam: ABSENT: cyanosis, erythema, jaundice Results Laboratory Results: 04/30/20 10:45 04/30/20 10:45 Sodium 137.9 Potassium 3.0 L* Chloride 103 Carbon Dioxide 24 Anion Gap 11 BUN 5 L Creatinine 0.47 L Est GFR ( Amer) > 60 Glucose 77 Calcium 8.7 Total Bilirubin 2.5 H AST 193 H Alkaline Phosphatase 286 H Total Protein 6.8 Albumin 3.2 L Assessment & Plan - Diagnosis (1) Abdominal pain Qualifiers: Abdominal location: generalized Qualified Code(s): R10.84 - Generalized abdominal pain Is this a current diagnosis for this admission?: Yes (2) Ventral incisional hernia Is this a current diagnosis for this admission?: Yes (3) H/O gastric bypass Is this a current diagnosis for this admission?: Yes - Plan Summary Plan Summary: This is a 49-year-old female with a ventral hernia, abdominal pain, and nausea. She has a history of gastric bypass surgery. She is still obese, and her examination is difficult due to her body habitus. The patient has voluntary guarding, and attempts to slap me every time I examine her abdomen. I will provide the patient with sedation via etomidate in order to palpate her hernia. After sedation, the hernia is largely reducible. I cannot positively identify any small bowel within the hernia, however due to her obesity I cannot rule it out. At this time, I do not identify any evidence of strangulation on physical exam. The patient does however have an elevated bilirubin, and other LFTs. She is status post cholecystectomy. These findings, coupled with her intermittent nausea, could signal a problem with her gastric bypass. Plan for a CT scan of the abdomen and pelvis with IV and p.o. contrast. Hopefully this will visualize the ventral hernia, rule out any evidence of obstruction, and visualize her gastric bypass. If the patient is experiencing problems related to her gastric bypass, she may require transfer to a higher level of care. Further plans to be made, after the CT scan has been performed and reviewed.
[2020-04-30 12:14] LABS: ANISOCYTOSIS 3+; HYPOCHROMASIA 2+; OVALOCYTES SLIGHT; PLATELET COMMENT ADEQUATE; POIKILOCYTOSIS 1+; POLYCHROMASIA 1+; TARGET CELLS SLIGHT; TEAR DROP CELLS SLIGHT
[2020-04-30] MEDS: POTASSI CL 20 MEQ/50 ML RIDER 20 MEQ/50 ML RTUPB IV SCH ×2 (12:33→14:45)
--- NOTE | 2020-04-30 16:02 | RADIOLOGY REPORT (SQ) ---
EXAM DESCRIPTION: CT ABD/PELVIS WITH IV ORAL IMAGES COMPLETED DATE/TIME: 04/30/2020 3:23 pm REASON FOR STUDY: Incarcerated abd wall hernia, PMH gastric bypass COMPARISON: 07/19/2019 TECHNIQUE: CT scan of the abdomen and pelvis performed using helical scanning technique with dynamic intravenous contrast injection. No oral contrast. Images reviewed with lung, soft tissue, and bone windows. Reconstructed coronal and sagittal MPR images reviewed. Delayed images for evaluation of the urinary system also acquired. All images stored on PACS. All CT scanners at this facility use dose modulation, iterative reconstruction, and/or weight based d osing when appropriate to reduce radiation dose to as low as reasonably achievable (ALARA). [facility]: Dose Right [facility]: CareDose [facility]: Dose Right [facility]: Teradose 4D [facility]: [employer] CONTRAST TYPE AND DOSE: contrast/concentration: Isovue 350.00 mmol/ml; Total Contrast Delivered: 100 .0 ml; Total Saline Delivered: 46.1 ml RENAL FUNCTION: Creatinine - 0.47 BUN= 5 RADIATION DOSE: CT Rad equipment meets quality standard of care and radiation dose reduction techniq ues were employed. CTDIvol: 16.8 - 19.5 mGy. DLP: 3217 mGy-cm.. LIMITATIONS: None. FINDINGS: LOWER CHEST: Slight to mild right lung base atelectatic changes. LIVER: Hepatomegaly. Since the previous examination, diffuse hepatic low attenuation to the liver w ith focal fatty areas of sparing. Considerations for these findings include possible hepatic steatos is, as well as other etiologies. No dilated ducts. The hepatic and portal veins are patent. SPLEEN: Splenule, normal anatomic variant. PANCREAS: No masses. No significant calcifications. No adjacent inflammation or peripancreatic fluid collections. Pancreatic duct not dilated. GALLBLADDER: Prior cholecystectomy. As on the prior examination, dilatation of the common bowel gwen t measures 20-21.4 mm on the current study compared 18 mm on the prior examination. ADRENAL GLANDS: Stable partially calcified mass in the region of right adrenal gland, axial image 34 , series 3. RIGHT KIDNEY AND URETER: No solid masses. No significant calcifications. No hydronephrosis or hyd roureter. LEFT KIDNEY AND URETER: No solid masses. No significant calcifications. No hydronephrosis or hydr oureter. AORTA AND VESSELS: No aneurysm. No dissection. Renal arteries, SMA, celiac without stenosis. RETROPERITONEUM: No retroperitoneal adenopathy, hemorrhage or masses. BOWEL AND PERITONEAL CAVITY: Prior gastric bypass procedure. No masses or inflammatory changes. No free fluid or peritoneal masses. APPENDIX: Interval appendectomy. PELVIS: The uterus is heterogenous in appearance with hypoattenuated masses, likely represents fibro id uterus, unchanged finding. Small to mild volume free fluid in the cul-de-sac at the right adnexal region may be related to rupture of ovarian cyst. Small hypoattenuated structures in the bilateral adnexal regions, may represent follicles. Normal bladder. ABDOMINAL WALL: Prior hernia repair with recurrent hernia noted. There has been an increase in size of the ventral abdominal wall hernia since the prior examination. Fascial wall defect measures appr oximately 3.1 cm in sagittal dimension. The fat within the hernia and the adjacent abdominal wall ca vity is hazy in appearance with soft tissue stranding which may be on the basis of edema. The subcut aneous fat surrounding the hernia is also hazy in appearance with linear stranding, may represent luly ma. No free fluid. BONES: No significant or acute findings. OTHER: No other significant finding. IMPRESSION: 1. Prior ventral abdominal wall hernia repair. Since the previous examination dated , an increase in size of the recurrent ventral abdominal wall hernia. The findings as describ ed above suggest an incarcerated hernia. Correlation suggested. 2. Significant change in the appearance of the liver since the previous examination. Diffuse low at tenuated appearance to the liver with focal areas of sparing identified. These findings may be on th e basis of fatty liver, with other etiologies not entirely excluded. Hepatomegaly is also noted. Co rrelation with MRI abdomen suggested (IV contrast if needed) and correlation with lab values. 3. Persistent increasing common bile duct dilatation. As previously mentioned on the prior examinat ion, MRCP or ERCP should be considered . 4. Interval appendectomy since the prior study. 5. Additional findings as above. TECHNICAL DOCUMENTATION: JOB ID: [id number] Quality ID # [id number]: Final reports with documentation of one or more dose reduction techniques (e.g., Au tomated exposure control, adjustment of the mA and/or kV according to patient size, use of iterative reconstruction technique) 2010 [employer]- All Rights Reserved Reading location - IP/workstation name: [email or web address]
--- NOTE | 2020-04-30 16:22 | Progress Note ---
Provider Note Provider Note: I have personally reviewed the images and report for the CT scan of the abdomen. The patient has a fat-containing ventral hernia, that does not appear significantly different from previous. She does have some stranding, likely related to manipulation of the hernia contentsby me and Dr. Mckeon. There is no intestine in the vicinity, or protruding through the hernia. There is no evidence for intestinal obstruction. There is no indication for urgent surgical intervention related to the hernia. Of more concern is the patient's elevated bilirubin, elevated lipase, and dilated common bile duct. Her bile duct has steadily increased in size over the last 2 years. Her common bile duct now measures greater than 20 mm. Her lipase is elevated. This could represent extrinsic obstruction of the ampulla (via mass or other lesion), primary common bile duct stones, stricture at the distal common bile duct and/or ampulla, or any number of other potential medical problems. It may be contributing to her symptomatology. I have discussed the case with emergency room physician. I have recommended further work-up which could include MRCP. I have also recommended the expertise of a tertiary care center (hepatobiliary surgeon and/or general accountant). Disposition per emergency room physician.
[2020-04-30 17:33] LABS: APPEARANCE,URINE SLIGHTLY-CLOUDY; BILIRUBIN,URINE SMALL (NEGATIVE); COLOR,URINE AMBER; GLUCOSE, URINE NEGATIVE (NEGATIVE); KETONES,URINE NEGATIVE (NEGATIVE); LEUKOCYTE ESTERASE,URINE NEGATIVE (NEGATIVE); NITRITE,URINE NEGATIVE (NEGATIVE); PROTEIN,URINE 100 mg/dL (NEGATIVE)
[2020-04-30 17:38] LABS: URINE SPECIFIC GRAVITY > 1.060
--- NOTE | 2020-04-30 19:05 | RADIOLOGY REPORT (SQ) ---
EXAM DESCRIPTION: MRI ABDOMEN WITHOUT IMAGES COMPLETED DATE/TIME: 04/30/2020 6:12 pm REASON FOR STUDY: Perform an MRCP to evaluate ductal dilation COMPARISON: CT abdomen and pelvis examination dated 04/30/2020. TECHNIQUE: Multiplanar multisequence imaging performed without contrast including sagittal, axial an d coronal T2, axial T1, axial gradient fat sat T1, axial, sagittal and coronal fat sat T1 post contra st. CONTRAST TYPE AND DOSE: None given. RENAL FUNCTION: Not indicated. ACR Type II contrast agent associated with few, if any, unconfounded cases of NSF LIMITATIONS: Examination is limited as all of the imaging sequences were not obtained due to the pat ient experiencing severe pain. The examination had to be aborted. FINDINGS: LIVER: Hepatomegaly, the liver measures 26.0 cm in length. The examination is limited as all of the imaging sequences were not obtained, the patient experienced severe pain during examinati on and the exam was therefore aborted. SPLEEN: Normal size. No focal lesions. PANCREAS: No masses. No adjacent inflammation or peripancreatic fluid collections. Pancreatic duct no t dilated. GALLBLADDER: Prior cholecystectomy. The common bile duct is dilated down to or near the level of th e ampulla of Vater with mild tapering identified. It measures approximately 16.0 cm in diameter. At the level of the ampulla of Vater it measures approximately 3.0 mm, coronal image 13, series 10. Th is finding may be on the basis of stricture. No evidence of common bile duct stones. There is mild central intrahepatic biliary dilatation. The visualized pancreatic duct is of normal c aliber. ADRENAL GLANDS: No significant masses or asymmetry. RIGHT KIDNEY AND URETER: Small right renal cyst. No hydronephrosis. LEFT KIDNEY AND URETER: No masses. No hydronephrosis. AORTA AND VESSELS: No aneurysm. No dissection. Renal arteries, SMA, celiac without stenosis. RETROPERITONEUM: No retroperitoneal adenopathy, hemorrhage or masses. BOWEL: Prior gastric bypass procedure. ABDOMINAL WALL AND PERITONEUM: Prior hernia repair with recurrent hernia identified which appears to be incarcerated. There is fluid identified within the hernia sac, fat and edematous changes. BONES: Degenerative disc disease lower lumbar spine. OTHER: Fibroid uterus. IMPRESSION: 1. The examination had to be aborted due to the patient's experiencing pain. The evalu ation of the liver is therefore limited. Hepatomegaly is noted. Please see CT abdomen and pelvis re port at 04/30/2020. A repeat examination of the liver is suggested when the patient can tolerate the procedure. 2. Prior cholecystectomy. Mild central intrahepatic biliary dilatation and dilatation of the common bile duct. The common bile duct appears to taper at or near the level of the ampulla of water. Thi s finding may be on the basis of stricture. No evidence of CBD stones. The pancreas appears to be u nremarkable. Further evaluation with ERCP may be helpful. 3. Prior ventral hernia repair with recurrent hernia identified. Incarcerated hernia is suggested a s above. TECHNICAL DOCUMENTATION: JOB ID: [id number] 2010 [employer]- All Rights Reserved Reading location - IP/workstation name: [email or web address]
[2020-04-30] MEDS ORDERED: KETOROLAC TROMETHAMINE INJ/PF 30 MG/1 ML SDV IV ONE (20:13)
[2020-04-30 20:58] VITALS: BP 134/82
[2020-05-01 10:59] LABS: PATH REVIEW PATHOLOGIST REVIEWED
== END 2020-04-30 20:58 | disposition home or self-care (01) ==
LOC: ER 08:41
DX: D50.9 Iron deficiency anemia, unspecified (principal); K83.1 Obstruction of bile duct; K43.9 Ventral hernia without obstruction or gangrene; R10.84 Generalized abdominal pain; R11.0 Nausea; Z90.49 Acquired absence of other specified parts of digestive tract; Z98.84 Bariatric surgery status
CPT/HCPCS: 99284; 99152; 96375; 96365; 96366; 86900; 86901; 36415; 86870; 86850; 83690; 85025; 85610; 80053; 81001; 74181; 74177; J1885; J2270; J2405; J3480; J3490

== ENCOUNTER 2020-05-06 21:21 | Inpatient (IN) | payer MEDICAID ==
[2020-05-07] MEDS ORDERED: MORPHINE SULFATE 10 MG/ML INJ IV ONE ×2 (02:23→10:31)
[2020-05-07] MEDS ORDERED: ONDANSETRON HCL INJ/PF 4 MG/2 ML SDV IV ONE (02:23)
--- NOTE | 2020-05-07 02:27 | ER Document Report ---
ED General - General TRAVEL OUTSIDE OF THE [place] IN LAST 30 DAYS: No - Related Data Home Medications: Vitamins <LINDA LUBIN - Last Filed: 05/07/20 08:10> <KENDRA LINDSEY - Last Filed: 05/07/20 10:32> - General Chief Complaint: Abdominal Injury Stated Complaint: ABDOMINAL PAIN/BACK PAIN Time Seen by Provider: 05/07/20 02:14 Primary Care Provider: ERICA ROJAS MD [Primary Care Provider] - Follow up as needed Notes: Patient is a 49-year-old female comes emergency department for chief complaint of abdominal pain, right flank pain, and dysuria. She states she has had nausea but denies vomiting. Patient states that "my pain is biliary". She states she has a known hernia and a "biliary problem" that she is supposed to follow-up with Dr. Hubbard in the office in several days from now (on 05/15/2020). She denies fever, she states the area in her abdomen is "mainly sore because they had to push it in while he was asleep in this emergency department a few days ago". She denies any change in the pain in the area of the hernia since she was here a week ago and had the area reduced by Dr. Ibanez. She denies current pain in the hernia area, she states it is in her flank. She has had a cholecystectomy, Mackenzie-en-Y gastric bypass in 2003, and has a history of secondary anemia occasionally requiring transfusion reportedly. She denies black or bloody stools, she is on iron supplement. She smokes, the only other medical history reports is tubal ligation. (LINDA LUBIN) - Related Data Allergies/Adverse Reactions: No Known Allergies Allergy (Verified 07/19/19 08:13) Past Medical History - General Information source: Patient - Social History Smoking Status: Current Every Day Smoker Chew tobacco use (# tins/day): No Frequency of alcohol use: None Drug Abuse: None Lives with: Family Family History: Reviewed & Not Pertinent Renal/ Medical History: Denies: Hx Peritoneal Dialysis Psychiatric Medical History: Denies: Hx Depression Past Surgical History: Reports: Hx Abdominal Surgery - gastric bypass, Hx Cholecystectomy, Hx Gastric Bypass Surgery - Mackenzie-en-Y gastric bypass, frequently anemic due to malabsorption, Hx Tubal Ligation - Immunizations Hx Diphtheria, Pertussis, Tetanus Vaccination: Yes <LINDA LUBIN - Last Filed: 05/07/20 08:10> Review of Systems - Review of Systems Constitutional: No symptoms reported EENT: No symptoms reported Cardiovascular: No symptoms reported Respiratory: No symptoms reported Gastrointestinal: See HPI Genitourinary: See HPI Female Genitourinary: No symptoms reported Musculoskeletal: No symptoms reported Skin: No symptoms reported Hematologic/Lymphatic: No symptoms reported Neurological/Psychological: No symptoms reported <CHUCKMARTHALINDA - Last Filed: 05/07/20 08:10> Physical Exam <AMEELINDA - Last Filed: 05/07/20 08:10> - Vital signs Vitals: Temp Pulse Resp BP Pulse Ox 97.9 F 80 16 111/64 100 05/06/20 23:10 05/06/20 23:10 05/06/20 23:10 05/06/20 23:10 05/06/20 23:10 - Notes Notes: GENERAL: Alert, interacts well. No acute distress. HEAD: Normocephalic, atraumatic. EYES: Pupils equal, round, and reactive to light. Extraocular movements intact. ENT: Oral mucosa moist, tongue midline. Oropharynx unremarkable. Airway patent. Very poor dentition. NECK: Full range of motion. Supple. Trachea midline. No lymphadenopathy. LUNGS: Clear to auscultation bilaterally, no wheezes, rales, or rhonchi. No respiratory distress. Non-tender chest wall. HEART: Regular rate and rhythm. No murmur ABDOMEN: There is a hernia that appears to be a ventral hernia above the umbilicus which has some mild tenderness but no erythema, swelling, firmness, or guarding. Abdomen is unremarkable otherwise. EXTREMITIES: Moves all 4 extremities spontaneously. No edema, normal radial and dorsalis pedis pulses bilaterally. No cyanosis. BACK: no cervical, thoracic, lumbar midline tenderness. No saddle anesthesia, normal distal neurovascular exam. Moves all extremities in full range of motion. NEUROLOGICAL: Alert and oriented x3. Normal speech. Cranial nerves II through XII grossly intact. Strength 5/5 in all extremities. PSYCH: Normal affect, normal mood. SKIN: Warm, dry, normal turgor. No rashes or lesions noted. (LINDA LUBIN) Course - Laboratory Result Diagrams: 05/07/20 03:22 05/07/20 02:24 <NORMA LUBINAN - Last Filed: 05/07/20 08:10> - Laboratory Result Diagrams: 05/07/20 03:22 05/07/20 02:24 <KENDRA LINDSEY - Last Filed: 05/07/20 10:32> - Re-evaluation Re-evalutation: Patient reports her hernia is unchanged from when it was reduced 1 week ago. Pain is in the right side and right flank per patient, this is the pain that is increasing that she came in for evaluation for. Patient does not have a fever. CBC does show increasing leukocytosis now at 13,000 with elevation of neutrophils. Anemia is worsening with hemoglobin of 6.6 and this is noted to be microcytic. I performed a rectal exam and this was not grossly positive but was Hemoccult positive very quickly. I believe patient is having slow gastrointestinal bleed. Patient will be transfused. Chemistry is concerning with worsening elevating bilirubin, lipase. This along with patient's worsening symptoms and history of biliary stricture is concerning. Discussed with Dr. Lopez, she recommends U/S and discussion with surgery on-call because patient has scheduled follow-up with Dr. Hubbard who is part of our surgical group. She also recommends giving Zosyn now. Ultrasound confirming dilated common bile duct. No other abnormal findings noted, patient with known cholecystectomy. I called and spoke with Dr. العلي, general surgery on-call, he evaluated the patient, he spoke with Dr. Hubbard, Dr. Hubbard also evaluated the patient. They recommend admission to the hospitalist with surgical consultation. I called and spoke with Dr. Yanez, he states that he would like to speak with Dr. Hubbard. I spoke with Dr. Hubbard and informed him that Dr. Yanez would like to speak to him. Dr. العلي called me back and told me they spoke to Dr. Yanez and Dr. Yanez will evaluate the patient for admission. (LINDA LUBIN) 05/07/20 10:31 Patient has orders for admission to telemetry inpatient. Patient status was changed from admission and initiated to admission accepted (KENDRA LINDSEY) - Vital Signs Vital signs: Temp Pulse Resp BP Pulse Ox 98.2 F 80 12 96/51 L 100 05/07/20 09:40 05/07/20 09:40 05/07/20 10:01 05/07/20 10:01 05/07/20 09:41 - Laboratory Laboratory results interpreted by me: 05/07/20 05/07/20 05/07/20 02:24 03:22 04:10 WBC 13.2 H RBC 3.51 L Hgb 6.6 L Hct 23.5 L MCV 67 L D MCH 18.7 L MCHC 27.9 L RDW 25.9 H Lymph % (Auto) 11.7 L Absolute Neuts (auto) 10.6 H Seg Neutrophils % 80.3 H Potassium 3.4 L Glucose 74 L Total Bilirubin 3.2 H Direct Bilirubin 2.1 H AST 176 H ALT 37 H Alkaline Phosphatase 279 H Albumin 3.3 L Lipase 773.8 H Urine Protein Urine Glucose (UA) Urine Ketones Urine Blood Urine Bilirubin Urine Urobilinogen Crossmatch See Detail 05/07/20 07:51 WBC RBC Hgb Hct MCV MCH MCHC RDW Lymph % (Auto) Absolute Neuts (auto) Seg Neutrophils % Potassium Glucose Total Bilirubin Direct Bilirubin AST ALT Alkaline Phosphatase Albumin Lipase Urine Protein 100 H Urine Glucose (UA) 50 H Urine Ketones TRACE H Urine Blood MODERATE H Urine Bilirubin MODERATE H Urine Urobilinogen 4.0 H Crossmatch Discharge <LINDA LUBIN - Last Filed: 05/07/20 08:10> - Discharge Admitting Provider: Surgicalist Unit Admitted: Telemetry <KENDRA LINDSEY - Last Filed: 05/07/20 10:32> - Discharge Clinical Impression: Biliary stricture, Iron deficiency anemia due to chronic blood loss, Elevated bilirubin Abdominal pain Qualifiers: Abdominal location: generalized Qualified Code(s): R10.84 - Generalized abdominal pain Disposition: ADMITTED INPATIENT Referrals: ERICA ROJAS MD [Primary Care Provider] - Follow up as needed
[2020-05-07 02:58] LABS: ALBUMIN 3.3 g/dL (3.5-5.0); ALKALINE PHOSPHATASE 279 U/L (38-126); ANION GAP 13 (5-19); ASPARTATE AMINO TRANSFERASE 176 U/L (14-36); BILIRUBIN,DIRECT 2.1 mg/dL (0.0-0.4); BILIRUBIN,TOTAL 3.2 mg/dL (0.2-1.3); BLOOD UREA NITROGEN 12 mg/dL (7-20); CALCIUM 9.1 mg/dL (8.4-10.2); CARBON DIOXIDE 24 mmol/L (22-30); CHLORIDE 101 mmol/L (98-107); GLUCOSE 74 mg/dL (75-110); POTASSIUM 3.4 mmol/L (3.6-5.0)
[2020-05-07] MEDS ORDERED: NORMAL SALINE 1000 ML 1,000 ML IV ONE (03:25)
[2020-05-07 03:47] LABS: ABSOLUTE BASOPHILS # (AUTO) 0.1 10^3/uL (0.0-0.2); ABSOLUTE LYMPHOCYTES (AUTO) 1.5 10^3/uL (0.5-4.7); ABSOLUTE MONOCYTES (AUTO) 0.9 10^3/uL (0.1-1.4); ABSOLUTE NEUT (AUTO) 10.6 10^3/uL (1.7-8.2); BASOPHILS % (AUTO) 1.1 % (0-2); EOSINOPHILS % (AUTO) 0.1 % (0-6); HEMATOCRIT 23.5 % (36.0-47.0); LYMPHOCYTES % (AUTO) 11.7 % (13-45); MEAN CORPUSCULAR HEMOGLOBIN 18.7 pg (27.0-33.4); MEAN CORPUSCULAR HGB CONC 27.9 g/dL (32.0-36.0); MONOCYTES % (AUTO) 6.8 % (3-13); PLATELET COUNT 354 10^3/uL (150-450); RED BLOOD COUNT 3.51 10^6/uL (3.72-5.28); RED CELL DISTRIBUTION WIDTH 25.9 % (11.5-14.0); SEGMENTED NEUTROPHILS % (AUTO) 80.3 % (42-78); TOTAL CELLS COUNTED % (AUTO) 100 %; WHITE BLOOD COUNT 13.2 10^3/uL (4.0-10.5)
[2020-05-07 03:52] LABS: HEMOGLOBIN 6.6 g/dL (12.0-15.5)
[2020-05-07 04:13] LABS: ANISOCYTOSIS 3+; BURR CELLS SLIGHT; OVALOCYTES 1+; POIKILOCYTOSIS 3+; TARGET CELLS 2+; TEAR DROP CELLS SLIGHT; TOXIC GRANULATION SLIGHT
[2020-05-07 04:14] LABS: PLATELET COMMENT ADEQUATE
[2020-05-07 04:15] LABS: INTERNATIONAL RATION (INR) 1.16; PARTIAL THROMBOPLASTIN TIME 28.6 SEC (23.5-35.8); PROTHROMBIN TIME 14.9 SEC (11.4-15.4)
[2020-05-07 04:15] LABS: MEAN CORPUSCULAR VOLUME 67 fl (80-97)
[2020-05-07] MEDS ORDERED: NORMAL SALINE 250 ML IV PRN ×2 (04:16)
[2020-05-07] MEDS ORDERED: PIPERACILLIN/TAZOBACTAM 3.375 GM VIAL IV ONE (04:48)
--- NOTE | 2020-05-07 06:25 | RADIOLOGY REPORT (SQ) ---
EXAM DESCRIPTION: US ABDOMEN LIMITED COMPLETED DATE/TME: 05/07/2020 04:47 CLINICAL HISTORY: elevated bili, eval CBD COMPARISON: 04/30/2020 TECHNIQUE: Real-time sonographic images of the right upper abdomen were obtained using a curved multihertz transducer. FINDINGS: Pancreas: The visualized portions of the pancreas are unremarkable. Vascular: The visualized portions of the aorta and IVC are unremarkable. Liver: Hepatomegaly with increased hepatic echogenicity Hepatopedal flow in the portal vein. Findings confirmed with color and spectral Doppler imaging. The common bile duct measures 1.2 cm. Minimal intrahepatic biliary dilatation. Shadowing stone identified in the common bile duct. Gallbladder: Prior cholecystectomy. Right Kidney: The right kidney measures 14.3 cm in length. No hydronephrosis, solid renal mass, or shadowing calculi. IMPRESSION: 1. Dilation of the common bile duct again identified measuring 1.2 cm. 2. Hepatic steatosis and hepatomegaly. 3. Prior cholecystectomy.
--- NOTE | 2020-05-07 07:49 | PDOC CONSULTATION ---
Consultation Consult Date: 05/07/20 Attending physician:: LINDA LUBIN Provider Consulted: NIVIA HILL History of Present Illness Admission Date/PCP: ERICA ROJAS MD History of Present Illness: ZACK WYLIE is a 49 year old female Presents back to the emergency department via ground rescue complaining of abdominal pain back pain, and anorexia. Patient was here last week with similar complaints, worked up and found to have an abdominal wall hernia, chronic, and a dilated common bile duct likely due to stricture at the ampulla of Vater. She currently has no evidence of sepsis, or an acute abdomen. Her laboratory functions are worse than last week. Surgery was reconsulted for evaluation. Patient was seen this morning, and felt to require hospitalization with the hospitalist service admitting, and surgery consulting. Patient is 14 years status post gastric bypass, Mackenzie-en-Y, in [facility]. She lost 257 pounds per history. She has chronic anemia, likely from multiple sources. She does not have a consistent primary care provider Past Medical History Past Medical History: Anemia, obesity, Psychiatric Medical History: Denies: Depression Hematology: Reports: Anemia Past Surgical History Past Surgical History: Reports: Cholecystectomy, Gastric Bypass Surgery - Mackenzie-en-Y gastric bypass, frequently anemic due to malabsorption, Tubal Ligation Social History Smoking Status: Current Every Day Smoker Electronic Cigarette use?: No Frequency of Alcohol Use: Occasional Hx Recreational Drug Use: No Hx Prescription Drug Abuse: No Family History Family History: None, Reviewed & Not Pertinent Parental Family History Reviewed: No Children Family History Reviewed: No Sibling(s) Family History Reviewed.: No Medication/Allergy Home Medications: Tramadol HCl 50 mg PO QIDP PRN #20 tablet 08/26/17 Ondansetron [Zofran Odt 4 mg Tablet] 4 mg PO Q8H PRN #10 tab.rapdis 04/30/20 Allergies/Adverse Reactions: No Known Allergies Allergy (Verified 07/19/19 08:13) Review of Systems Constitutional: PRESENT: as per HPI Eyes: PRESENT: other - Wears glasses Ears: ABSENT: hearing changes Respiratory: ABSENT: cough, hemoptysis Gastrointestinal: PRESENT: as per HPI Genitourinary: ABSENT: dysuria, hematuria Musculoskeletal: ABSENT: joint swelling Psychiatric: PRESENT: anxiety Physical Exam Vital Signs: Temp Pulse Resp BP Pulse Ox 98.0 F 68 17 110/66 100 05/07/20 06:43 05/07/20 06:43 05/07/20 06:43 05/07/20 06:43 05/07/20 06:43 Intake & Output 05/06/20 05/07/20 05/08/20 06:59 06:59 06:59 Intake Total 1000 Balance 1000 Weight 103.1 kg General appearance: PRESENT: no acute distress Head exam: PRESENT: normocephalic Eye exam: PRESENT: EOMI, other - Wears glasses Mouth exam: PRESENT: dry mucosa Neck exam: PRESENT: full ROM Respiratory exam: PRESENT: rhonchi Cardiovascular exam: PRESENT: RRR Pulses: PRESENT: normal carotid pulses, normal radial pulses, normal femoral pulses, normal dorsalis pedis pul GI/Abdominal exam: PRESENT: other - Multiple scars consistent previous surgery. There is a palpable mass to the left of midline midway between the umbilicus and the xiphoid area. The abdomen is otherwise soft no peritoneal signs or rigidity Rectal exam: PRESENT: deferred Extremities exam: PRESENT: full ROM Musculoskeletal exam: PRESENT: full ROM Neurological exam: PRESENT: oriented to person, oriented to place, oriented to time, oriented to situation Psychiatric exam: PRESENT: flat affect Skin exam: PRESENT: dry Results Laboratory Results: 05/07/20 03:22 05/07/20 02:24 05/07/20 05/07/20 05/07/20 02:24 02:24 02:24 WBC Cancelled RBC Cancelled Hgb Cancelled Hct Cancelled MCV Cancelled MCH Cancelled MCHC Cancelled RDW Cancelled Plt Count Cancelled Seg Neutrophils % Cancelled Sodium 137.7 Potassium 3.4 L Chloride 101 Carbon Dioxide 24 Anion Gap 13 BUN 12 Creatinine 0.66 Est GFR ( Amer) > 60 Glucose 74 L Lactic Acid 1.1 Calcium 9.1 Total Bilirubin 3.2 H AST 176 H Alkaline Phosphatase 279 H Total Protein 7.0 Albumin 3.3 L Lipase 773.8 H 05/07/20 03:22 WBC 13.2 H RBC 3.51 L Hgb 6.6 L Hct 23.5 L MCV 67 L D MCH 18.7 L MCHC 27.9 L RDW 25.9 H Plt Count 354 Seg Neutrophils % 80.3 H Sodium Potassium Chloride Carbon Dioxide Anion Gap BUN Creatinine Est GFR ( Amer) Glucose Lactic Acid Calcium Total Bilirubin AST Alkaline Phosphatase Total Protein Albumin Lipase Impressions: Abdomen Ultrasound 05/07/20 04:47 IMPRESSION: 1. Dilation of the common bile duct again identified measuring 1.2 cm. 2. Hepatic steatosis and hepatomegaly. 3. Prior cholecystectomy. Assessment & Plan - Diagnosis (1) Biliary stricture Is this a current diagnosis for this admission?: Yes Plan: Impression: Patient's clinical picture, radiographic imaging, including previous CT scan of abdomen, and MRI of abdomen, as well as a progressively increasing liver function studies are most consistent with benign biliary stricture; cannot rule out localized malignancy at the ampulla Vater. Patient's anatomy complicated by previous Mackenzie-en-Y gastric bypass which appears to be anatomically intact. Evaluation of the distal common bile duct, including biopsies, not possible using ERCP. Therefore an open approach will be required. I have spoken with my colleague, Dr. Ayush Hubbard, who is willing to work with this patient here at [facility], and provide necessary surgical services Plan: 1. I spoken with emergency room department, as well as Dr. Kory Yanez, hospitalist. Given patient's anemia, malnutrition and dehydration, I suggest she be admitted, resuscitated, and prepared for surgery. She can be on water only diet. 2. Repeat liver function studies 3. Anticipate surgical exploration later this week (2) Abdominal pain Qualifiers: Abdominal location: generalized Qualified Code(s): R10.84 - Generalized abdominal pain Is this a current diagnosis for this admission?: Yes (3) Nutrition Is this a current diagnosis for this admission?: Yes (4) Ventral hernia Qualifiers: Obstruction and gangrene presence: without obstruction or gangrene Qualified Code(s): K43.9 - Ventral hernia without obstruction or gangrene Is this a current diagnosis for this admission?: Yes (5) H/O gastric bypass Is this a current diagnosis for this admission?: Yes - Time Time Spent: 30 to 50 Minutes Smoking Cessation Education: over 10 minutes Medications reviewed and adjusted accordingly: Yes Anticipated discharge: Home - Inpatient Certification Based on my medical assessment, after consideration of the patient's comor bidities, presenting symptoms, or acuity I expect that the services needed warrant INPATIENT care.: Yes I certify that my determination is in accordance with my understanding of Medicare's requirements for reasonable and necessary INPATIENT services [42 CFR 412.3e].: Yes Medical Necessity: Need For IV Fluids, Need for Surgery
[2020-05-07] MEDS ORDERED: NORMAL SALINE 1000 ML 1,000 ML IV PRN (07:51)
[2020-05-07 08:05] LABS: APPEARANCE,URINE SLIGHTLY-CLOUDY; BILIRUBIN,URINE MODERATE (NEGATIVE); GLUCOSE, URINE 50 mg/dL (NEGATIVE); KETONES,URINE TRACE mg/dL (NEGATIVE); LEUKOCYTE ESTERASE,URINE NEGATIVE (NEGATIVE); NITRITE,URINE NEGATIVE (NEGATIVE); PROTEIN,URINE 100 mg/dL (NEGATIVE); URINE SPECIFIC GRAVITY 1.023
[2020-05-07 08:06] LABS: COLOR,URINE ORANGE
[2020-05-07 09:41] LABS: ABSOLUTE RETICS # 0.088 10^6/uL (0.028-0.122); IRON(TIBC) 19.7 ug/dL (37-170); RETICULOCYTE COUNT (AUTO) 2.56 % (0.66-2.85)
[2020-05-07 10:47] LABS: FOLATE 3.47 ng/mL (>2.76)
--- NOTE | 2020-05-07 11:22 | PDOC H&P ---
History of Present Illness Admission Date/PCP: 05/07/20 10:55 ERICA ROJAS MD History of Present Illness: ZACK WYLIE is a 49 year old female who is a current every day smoker and had a history of a Mackenzie-en-Y gastric bypass in 2003, who presents with abdominal pain. She was seen by Dr. Ibanez a week ago and had a ventral hernia reduced. At that time she was also found to have a biliary stricture. Dr. Hubbard was going to follow her and plan to manage her operatively. She was supposed to have a follow-up visit in about a week, but she came back in today because of abdominal pain. She denies any melena, hematemesis, or hematochezia. She was also found to have a low hemoglobin at 6.6. She has had problems with anemia in the past since her gastric bypass and has had multiple blood transfusions. They were going to order her some blood in the ER but they are having to get it specially treated because she has a lot of antibodies. Her lipase is also a little bit elevated, as is her bilirubin, along with some mild elevation in her transaminases and alkaline phosphatase. She was seen in consultation in the ER by Dr. العلي. Past Medical History Psychiatric Medical History: Denies: Depression Hematology: Reports: Anemia Past Surgical History Past Surgical History: Reports: Cholecystectomy, Gastric Bypass Surgery - Mackenzie-en-Y gastric bypass, frequently anemic due to malabsorption, Tubal Ligation Social History Lives with: Family Smoking Status: Current Every Day Smoker Electronic Cigarette use?: No Frequency of Alcohol Use: Occasional Hx Recreational Drug Use: No Hx Prescription Drug Abuse: No Family History Family History: Reviewed & Not Pertinent, COPD, Hyperlipidemia, Hypertension, Thyroid Disfunction Parental Family History Reviewed: Yes Children Family History Reviewed: Yes Sibling(s) Family History Reviewed.: Yes Medication/Allergy Home Medications: Tramadol HCl 50 mg PO QIDP PRN #20 tablet 08/26/17 Ondansetron [Zofran Odt 4 mg Tablet] 4 mg PO Q8H PRN #10 tab.rapdis 04/30/20 Allergies/Adverse Reactions: No Known Allergies Allergy (Verified 07/19/19 08:13) Review of Systems All systems: reviewed and no additional remarkable complaints except as stated - All systems were reviewed and were negative except as noted in the HPI Physical Exam Vital Signs: Temp Pulse Resp BP Pulse Ox 98.1 F 80 17 118/79 100 05/07/20 10:40 05/07/20 10:40 05/07/20 10:40 05/07/20 10:40 05/07/20 10:40 Intake & Output 05/06/20 05/07/20 05/08/20 06:59 06:59 06:59 Intake Total 1000 0 Balance 1000 0 Weight 103.1 kg General appearance: PRESENT: no acute distress, cooperative, disheveled, morbidly obese Head exam: PRESENT: atraumatic, normocephalic Eye exam: PRESENT: EOMI, PERRLA, scleral icterus. ABSENT: conjunctival injection, nystagmus Ear exam: PRESENT: normal external ear exam Mouth exam: PRESENT: dry mucosa, neck supple Teeth exam: PRESENT: poor dentation Throat exam: ABSENT: post pharyngeal erythema Neck exam: PRESENT: full ROM. ABSENT: carotid bruit, JVD, lymphadenopathy, meningismus, tenderness, thyromegaly Respiratory exam: PRESENT: clear to auscultation winter, symmetrical, unlabored. ABSENT: accessory muscle use, chest wall tenderness, crackles, prolonged expiratory phas, rhonchi, tachypnea, wheezes Cardiovascular exam: PRESENT: RRR, +S1, +S2 Pulses: PRESENT: normal carotid pulses Vascular exam: PRESENT: normal capillary refill GI/Abdominal exam: PRESENT: normal bowel sounds, soft, tenderness - Mild and diffuse. ABSENT: distended, guarding, rebound Rectal exam: PRESENT: heme (-) stool Extremities exam: ABSENT: clubbing, pedal edema Musculoskeletal exam: PRESENT: normal inspection. ABSENT: deformity Neurological exam: PRESENT: alert, awake, oriented to person, oriented to place, oriented to time, oriented to situation, CN II-XII grossly intact. ABSENT: motor sensory deficit Psychiatric exam: PRESENT: appropriate affect, normal mood Skin exam: PRESENT: dry, warm Results Laboratory Results: 05/07/20 03:22 05/07/20 02:24 05/07/20 05/07/20 05/07/20 02:24 02:24 02:24 WBC Cancelled RBC Cancelled Hgb Cancelled Hct Cancelled MCV Cancelled MCH Cancelled MCHC Cancelled RDW Cancelled Plt Count Cancelled Seg Neutrophils % Cancelled Retic Count (auto) Sodium 137.7 Potassium 3.4 L Chloride 101 Carbon Dioxide 24 Anion Gap 13 BUN 12 Creatinine 0.66 Est GFR ( Amer) > 60 Glucose 74 L Lactic Acid 1.1 Calcium 9.1 Iron TIBC % Saturation Ferritin Total Bilirubin 3.2 H AST 176 H Alkaline Phosphatase 279 H Total Protein 7.0 Albumin 3.3 L Lipase 773.8 H Vitamin B12 Folate Urine Color Urine Appearance Urine pH Ur Specific [place] Urine Protein Urine Glucose (UA) Urine Ketones Urine Blood Urine Nitrite Ur Leukocyte Esterase Urine WBC (Auto) Urine RBC (Auto) Blood Type Antibody Screen 05/07/20 05/07/20 05/07/20 03:22 03:22 03:22 WBC 13.2 H RBC 3.51 L Hgb 6.6 L Hct 23.5 L MCV 67 L D MCH 18.7 L MCHC 27.9 L RDW 25.9 H Plt Count 354 Seg Neutrophils % 80.3 H Retic Count (auto) 2.56 Sodium Potassium Chloride Carbon Dioxide Anion Gap BUN Creatinine Est GFR ( Amer) Glucose Lactic Acid Calcium Iron 19.7 L TIBC 399 % Saturation 5 Ferritin 18.50 Total Bilirubin AST Alkaline Phosphatase Total Protein Albumin Lipase Vitamin B12 915.0 Folate 3.47 Urine Color Urine Appearance Urine pH Ur Specific [place] Urine Protein Urine Glucose (UA) Urine Ketones Urine Blood Urine Nitrite Ur Leukocyte Esterase Urine WBC (Auto) Urine RBC (Auto) Blood Type Antibody Screen 05/07/20 05/07/20 04:10 07:51 WBC RBC Hgb Hct MCV MCH MCHC RDW Plt Count Seg Neutrophils % Retic Count (auto) Sodium Potassium Chloride Carbon Dioxide Anion Gap BUN Creatinine Est GFR ( Amer) Glucose Lactic Acid Calcium Iron TIBC % Saturation Ferritin Total Bilirubin AST Alkaline Phosphatase Total Protein Albumin Lipase Vitamin B12 Folate Urine Color ORANGE Urine Appearance SLIGHTLY-CLOUDY Urine pH 5.0 Ur Specific [place] 1.023 Urine Protein 100 H Urine Glucose (UA) 50 H Urine Ketones TRACE H Urine Blood MODERATE H Urine Nitrite NEGATIVE Ur Leukocyte Esterase NEGATIVE Urine WBC (Auto) 49 Urine RBC (Auto) 57 Blood Type AB POSITIVE Antibody Screen POSITIVE Impressions: Abdomen Ultrasound 05/07/20 04:47 IMPRESSION: 1. Dilation of the common bile duct again identified measuring 1.2 cm. 2. Hepatic steatosis and hepatomegaly. 3. Prior cholecystectomy. Assessment and Plan - Diagnosis (1) Biliary stricture Is this a current diagnosis for this admission?: Yes Plan: Seen in consultation by Dr. العلي. He says Dr. Hubbard is going to be managing this patient because he has been planning on following her in the outpatient setting. He wants her kept on water and IV fluids for now. (2) Hyperbilirubinemia Is this a current diagnosis for this admission?: Yes Plan: Due to biliary stricture, management per surgery (3) Elevated lipase Is this a current diagnosis for this admission?: Yes Plan: Water by mouth only, IV fluids. Technically not pancreatitis because the lipase is not 3 times the upper limit of normal, but we are monitoring her lipase daily. (4) Chronic iron deficiency anemia Is this a current diagnosis for this admission?: Yes Plan: She has a history of a Mackenzie-en-Y, but her folate and B12 are normal. Her iron levels and her ferritin are low. She will likely need iron infusion. She also got 2 units of packed red blood cells once the appropriate blood became available. (5) H/O gastric bypass Is this a current diagnosis for this admission?: Yes (6) Obesity (BMI 30.0-34.9) Is this a current diagnosis for this admission?: Yes Plan: Strongly encourage lifestyle modification. She said she is lost a lot of weight since the gastric bypass but is put some of it back on (7) Heme positive stool Is this a current diagnosis for this admission?: Yes Plan: How much of her blood loss is due to possible GI bleeding is unknown, but surgery is consulted. - Time Time Spent with patient: 35 or more minutes - Inpatient Certification Based on my medical assessment, after consideration of the patient's comorbidities, presenting symptoms, or acuity I expect that the services needed warrant INPATIENT care.: Yes I certify that my determination is in accordance with my understanding of Medicare's requirements for reasonable and necessary INPATIENT services [42 CFR 412.3e].: Yes Medical Necessity: Significant Comorbidiites Make Outpatient Treatment Too Risky, Need Close Monitoring Due to Risk of Patient Decompensation, Need For IV Fluids, Need For Continuous Telemetry Monitoring, Need for Pain Control, Need for Surgery, Risk of Complication if Not Cared For in Hospital
[2020-05-07] MEDS: HEPARIN SOD (PORCINE) 5,000 UNIT/ML 1 ML VIAL SUBCUT SCH ×2 (15:46→22:44)
[2020-05-07] MEDS: MORPHINE SULFATE 10 MG/ML INJ IV PRN ×2 (16:54→22:43)
[2020-05-07] MEDS: RINGERS SOLUTION,LACTATED 1,000 ML IV PRN (16:56)
[2020-05-07] MEDS: ONDANSETRON HCL INJ/PF 4 MG/2 ML SDV IV PRN (22:46)
[2020-05-08] MEDS: MORPHINE SULFATE 10 MG/ML INJ IV PRN ×5 (03:57→21:44)
[2020-05-08] MEDS: RINGERS SOLUTION,LACTATED 1,000 ML IV PRN (05:01)
[2020-05-08] MEDS: HEPARIN SOD (PORCINE) 5,000 UNIT/ML 1 ML VIAL SUBCUT SCH ×3 (05:02→21:44)
[2020-05-08 06:35] LABS: HEMATOCRIT 26.9 % (36.0-47.0); HEMOGLOBIN 8.1 g/dL (12.0-15.5); MEAN CORPUSCULAR HEMOGLOBIN 21.3 pg (27.0-33.4); PLATELET COUNT 266 10^3/uL (150-450); WHITE BLOOD COUNT 13.7 10^3/uL (4.0-10.5)
[2020-05-08 06:59] LABS: ALBUMIN 2.6 g/dL (3.5-5.0); ALKALINE PHOSPHATASE 215 U/L (38-126); ANION GAP 9 (5-19); ASPARTATE AMINO TRANSFERASE 170 U/L (14-36); BILIRUBIN,DIRECT 2.7 mg/dL (0.0-0.4); BILIRUBIN,TOTAL 3.9 mg/dL (0.2-1.3); BLOOD UREA NITROGEN 8 mg/dL (7-20); CALCIUM 8.4 mg/dL (8.4-10.2); CARBON DIOXIDE 24 mmol/L (22-30); CHLORIDE 103 mmol/L (98-107); TOTAL PROTEIN 5.8 g/dL (6.3-8.2)
[2020-05-08 07:02] LABS: GLUCOSE 53 mg/dL (75-110)
[2020-05-08 07:12] LABS: MEAN CORPUSCULAR VOLUME 71 fl (80-97)
[2020-05-08] MEDS: POTASSI CL 20 MEQ/50 ML RIDER 20 MEQ/50 ML RTUPB IV SCH ×2 (11:34→15:01)
--- NOTE | 2020-05-08 16:29 | PDOC PROGRESS REPORT ---
Subjective Progress Note for:: 05/08/20 Subjective:: No adverse events overnight. No new complaints. Vital signs been stable. She says she thought she was going to be able to go home and then come back and do surgery but this is not the case. Dr. Hubbard has put her on the OR schedule for tomorrow. Reason For Visit: BILIARY STRICTURE, ABDOMINAL PAIN, ELEVATED BILIR- Physical Exam Vital Signs: Temp Pulse Resp BP Pulse Ox 98.7 F 78 16 121/52 L 97 05/08/20 16:12 05/08/20 16:12 05/08/20 16:12 05/08/20 16:12 05/08/20 16:12 Intake & Output 05/07/20 05/08/20 05/09/20 06:59 06:59 06:59 Intake Total 1000 1650 100 Balance 1000 1650 100 Weight 103.1 kg 130 kg General appearance: PRESENT: no acute distress, cooperative, disheveled, morbidly obese Respiratory exam: PRESENT: clear to auscultation winter, symmetrical, unlabored. ABSENT: accessory muscle use, chest wall tenderness, crackles, prolonged expiratory phas, rhonchi, tachypnea, wheezes Cardiovascular exam: PRESENT: RRR, +S1, +S2 Pulses: PRESENT: normal carotid pulses Vascular exam: PRESENT: normal capillary refill GI/Abdominal exam: PRESENT: normal bowel sounds, soft, tenderness - Mild and diffuse. ABSENT: distended, guarding, rebound Rectal exam: PRESENT: heme (-) stool Extremities exam: ABSENT: clubbing, pedal edema Musculoskeletal exam: PRESENT: normal inspection. ABSENT: deformity Neurological exam: PRESENT: alert, awake, oriented to person, oriented to place, oriented to time, oriented to situation Psychiatric exam: PRESENT: appropriate affect, normal mood Skin exam: PRESENT: dry, warm Results Laboratory Results: 05/08/20 05:44 05/08/20 05:44 05/07/20 05/08/20 05/08/20 04:10 05:44 05:44 WBC 13.7 H RBC 3.80 Hgb 8.1 L Hct 26.9 L MCV 71 L D MCH 21.3 L MCHC 30.0 L RDW 26.0 H Plt Count 266 Sodium 135.5 L Potassium 3.0 L* Chloride 103 Carbon Dioxide 24 Anion Gap 9 BUN 8 Creatinine 0.43 L Est GFR ( Amer) > 60 Glucose 53 L Calcium 8.4 Magnesium Total Bilirubin 3.9 H AST 170 H Alkaline Phosphatase 215 H Total Protein 5.8 L Albumin 2.6 L Lipase 450.8 H Blood Type AB POSITIVE Antibody Screen POSITIVE 05/08/20 05:44 WBC RBC Hgb Hct MCV MCH MCHC RDW Plt Count Sodium Potassium Chloride Carbon Dioxide Anion Gap BUN Creatinine Est GFR ( Amer) Glucose Calcium Magnesium 1.7 Total Bilirubin AST Alkaline Phosphatase Total Protein Albumin Lipase Blood Type Antibody Screen Impressions: Abdomen Ultrasound 05/07/20 04:47 IMPRESSION: 1. Dilation of the common bile duct again identified measuring 1.2 cm. 2. Hepatic steatosis and hepatomegaly. 3. Prior cholecystectomy. Assessment and Plan - Diagnosis (1) Biliary stricture Is this a current diagnosis for this admission?: Yes Plan: Management per surgery, plan for her to go to the OR for surgery tomorrow. (2) Hyperbilirubinemia Is this a current diagnosis for this admission?: Yes Plan: Due to biliary stricture, management per surgery (3) Elevated lipase Is this a current diagnosis for this admission?: Yes Plan: N.p.o. except for water, improving with IV fluids (4) Chronic iron deficiency anemia Is this a current diagnosis for this admission?: Yes Plan: She has a history of a Mackenzie-en-Y, but her folate and B12 are normal. Her iron levels and her ferritin are low. She will likely need iron infusion. She also got 2 units of packed red blood cells once the appropriate blood became available. Dr. Hubbard ordered 2 more units today. (5) H/O gastric bypass Is this a current diagnosis for this admission?: Yes (6) Obesity (BMI 30.0-34.9) Is this a current diagnosis for this admission?: Yes Plan: Strongly encourage lifestyle modification. She said she is lost a lot of weight since the gastric bypass but is put some of it back on (7) Heme positive stool Is this a current diagnosis for this admission?: Yes Plan: How much of her blood loss is due to possible GI bleeding is unknown, but surgery is consulted. Patient did not want to do a bowel prep. Plan is to do surgery for the biliary stricture tomorrow, and then monitor her as an outpatient with the plan to do a colonoscopy in the near future. - Time Time Spent with patient: 15-24 minutes
[2020-05-09] MEDS: MORPHINE SULFATE 10 MG/ML INJ IV PRN ×3 (03:35→23:25)
[2020-05-09] MEDS: HEPARIN SOD (PORCINE) 5,000 UNIT/ML 1 ML VIAL SUBCUT SCH ×2 (06:52→14:00)
[2020-05-09] MEDS: POTASSI CL 20 MEQ/D5NS 1L 20 MEQ/1,000 ML RTUINJ IV PRN ×2 (09:18→15:59)
[2020-05-09 09:44] LABS: ABSOLUTE EOSINOPHILS # (AUTO) 0.1 10^3/uL (0.0-0.6); ABSOLUTE LYMPHOCYTES (AUTO) 0.8 10^3/uL (0.5-4.7); ABSOLUTE MONOCYTES (AUTO) 1.2 10^3/uL (0.1-1.4); BASOPHILS % (AUTO) 0.4 % (0-2); EOSINOPHILS % (AUTO) 0.5 % (0-6); HEMATOCRIT 33.7 % (36.0-47.0); LYMPHOCYTES % (AUTO) 6.3 % (13-45); MEAN CORPUSCULAR HEMOGLOBIN 23.3 pg (27.0-33.4); MEAN CORPUSCULAR HGB CONC 31.3 g/dL (32.0-36.0); MEAN CORPUSCULAR VOLUME 74 fl (80-97); MONOCYTES % (AUTO) 9.1 % (3-13); PLATELET COUNT 263 10^3/uL (150-450); RED BLOOD COUNT 4.54 10^6/uL (3.72-5.28); RED CELL DISTRIBUTION WIDTH 24.3 % (11.5-14.0); SEGMENTED NEUTROPHILS % (AUTO) 83.7 % (42-78); TOTAL CELLS COUNTED % (AUTO) 100 %; WHITE BLOOD COUNT 13.1 10^3/uL (4.0-10.5)
[2020-05-09] MEDS ORDERED: GLYCOPYRROLATE 1 MG/5 ML VIAL ONE (09:53)
[2020-05-09] MEDS ORDERED: ONDANSETRON HCL INJ/PF 4 MG/2 ML SDV ONE ×2 (09:53→12:16)
[2020-05-09] MEDS ORDERED: DEXAMETHASONE SOD PHOSPHATE INJ 4 MG/1 ML VIAL ONE (09:53)
[2020-05-09] MEDS ORDERED: NEOSTIGMINE METHYLSULFATE 10 MG/10 ML VIAL ONE (09:53)
[2020-05-09] MEDS ORDERED: PHENYLEPHRINE HCL INJ/PF 10 MG/1 ML SDV ONE (09:53)
[2020-05-09] MEDS ORDERED: ROCURONIUM BROMIDE INJ 50 MG/5 ML VIAL IV ONE (09:53)
[2020-05-09 09:59] LABS: ALBUMIN 2.6 g/dL (3.5-5.0); ALKALINE PHOSPHATASE 198 U/L (38-126); ANION GAP 6 (5-19); ASPARTATE AMINO TRANSFERASE 161 U/L (14-36); BILIRUBIN,DIRECT 3.2 mg/dL (0.0-0.4); BILIRUBIN,TOTAL 4.8 mg/dL (0.2-1.3); BLOOD UREA NITROGEN 8 mg/dL (7-20); CALCIUM 8.4 mg/dL (8.4-10.2); CARBON DIOXIDE 25 mmol/L (22-30); CHLORIDE 105 mmol/L (98-107); POTASSIUM 3.4 mmol/L (3.6-5.0); TOTAL PROTEIN 5.8 g/dL (6.3-8.2)
[2020-05-09 10:05] LABS: GLUCOSE 61 mg/dL (75-110)
[2020-05-09] MEDS ORDERED: BUPIVACAINE INJ/PF LIPOSOME/PF 266 MG/20 ML SDV ONE (10:29)
[2020-05-09] MEDS ORDERED: FENTANYL CITRATE INJ/PF 100 MCG/2 ML AMPUL ONE ×2 (10:39→14:38)
[2020-05-09] MEDS ORDERED: MIDAZOLAM 2 MG/2 ML INJ ONE (10:39)
[2020-05-09] MEDS ORDERED: HYDROMORPHONE HCL INJ/PF 2 MG/ML AMPULE ONE (10:39)
[2020-05-09] MEDS ORDERED: DEXMEDETOMIDINE INJ 80 MCG/20 ML VIAL IV ONE (10:39)
[2020-05-09] MEDS ORDERED: PROPOFOL INJ 200 MG/20 ML VIAL IV ONE (10:40)
[2020-05-09 10:56] LABS: HEMOGLOBIN 10.6 g/dL (12.0-15.5)
[2020-05-09 11:00] LABS: POLYCHROMASIA 1+
[2020-05-09 11:01] LABS: ANISOCYTOSIS 3+; HYPOCHROMASIA 1+; OVALOCYTES SLIGHT; POIKILOCYTOSIS 1+; TARGET CELLS 1+; TEAR DROP CELLS SLIGHT
[2020-05-09 11:02] LABS: PLATELET COMMENT ADEQUATE
[2020-05-09] MEDS ORDERED: METRONIDAZOLE 500 MG/NS RTU 500 MG/100 ML RTUPB IV ONE (11:31)
[2020-05-09] MEDS ORDERED: CEFAZOLIN INJ 1 GM VIAL ONE (11:31)
[2020-05-09] MEDS ORDERED: FENTANYL CITRATE INJ/PF 100 MCG/2 ML AMPUL IV PRN ×3 (12:12)
[2020-05-09] MEDS ORDERED: DIPHENHYDRAMINE HCL 50 MG/ML VIAL IV PRN (12:12)
[2020-05-09] MEDS ORDERED: MORPHINE SULFATE 10 MG/ML INJ IV PRN (12:12)
[2020-05-09] MEDS ORDERED: PROMETHAZINE HCL INJ 25 MG/1 ML VIAL IV PRN (12:12)
[2020-05-09] MEDS ORDERED: MEPERIDINE HCL/PF INJ 25 MG/1 ML DISP.SYRIN IV PRN (12:12)
[2020-05-09] MEDS ORDERED: ONDANSETRON HCL INJ/PF 4 MG/2 ML SDV IV PRN (12:12)
[2020-05-09] MEDS: MORPHINE SULFATE 10 MG/ML INJ ONE ×2 (14:24→14:29)
--- NOTE | 2020-05-09 14:35 | Operative Report ---
Nonrecallable Operative Report DATE OF SURGERY: 05/09/20 PREOPERATIVE DIAGNOSIS: Choledocholithiasis lithiasis with biliary obstruction POSTOPERATIVE DIAGNOSIS: Chronic hepatitis cirrhosis pancreatitis chronic biliary obstruction status post gastric bypass OPERATION: Exploratory laparotomy with ventral hernia repair, choledochoduodenostomy, liver biopsy SURGEON: ROXANNE MANUEL SERVICE SECRETARY: KERRY GONZÁLES ANESTHESIA: GA TISSUE REMOVED OR ALTERED: Liver biopsy COMPLICATIONS: None ESTIMATED BLOOD LOSS: 150 cc INTRAOPERATIVE FINDINGS: Dilated bile duct with extrinsic compression probably secondary to chronic pancreatitis. Markedly enlarged liver consistent with steatohepatitis. Cirrhotic liver. Normal gastric bypass anatomy. Ventral hernia PROCEDURE: Patient was brought to the operating awake alert stable condition placed in the operative supine position just under general esthesia intubated the abdomen was prepped and draped in usual sterile fashion for the procedure. After appropriate timeout site verification the procedure commenced. A midline incision was used from just below the umbilicus to the xiphoid process dissection was carried down through subcutaneous tissue with Bovie cautery upon reaching the subcutaneous tissue we noted a ventral hernia that he had incarcerated omentum about the size of a golf ball in the midline this was opened and the incarcerated omentum that appeared to be necrotic was divided with the LigaSure device and removed. We then gain access to the abdominal cavity upon entering the abdominal cavity there is a moderate amount of the sciatic fluid in the abdominal cavity approximately 500 cc this was suctioned out. There are number of adhesions of small bowel and omentum to the right upper quadrant which was taken down with blunt and sharp dissection either using blunt dissection technique or LigaSure device. We were then finally able to identify the right upper quadrant and identified the ashley hepatis. Upon mobilizing the ashley hepatis I identified the common bile duct which was markedly enlarged at least 1.5 cm in diameter I then performed a wide Konrad maneuver palpating the head of the pancreas which appeared to be firm as well as the neck and body of the pancreas consistent with chronic pancreatitis. I could not palpate a distinct mass in the neck or head of the pancreas. After mobilizing the duodenum and filling the pancreas I made a search of the abdominal cavity for any other masses there was a large fibroid uterus but other than that I do not palpate anything in the sigmoid colon or rectum the descending colon transverse colon or ascending colon. She had a apparently no rmal-looking appendix. I then proceeded with a choledochoduodenostomy. We placed 2 silk stay sutures in the common bile duct below the cystic duct junction and using an 11 blade open the common bile duct longitudinally extended with Keane scissors. We then examined the bile duct for any retained stones I could not identify any. I passed a regular Rodriguez catheter into the bile duct and irrigated vigorously did not identify any stones that were released. I used the Jez forceps and explored the bile duct it did not notice any stones. We then use a cholangioscope passed into the bile duct and had it passed down to the ampulla there was no distinct masses or excrescences in the bile duct and no stones. There was some swelling of the bile duct extrinsically that may been related to the compression and elevated bilirubin. To explore the bile duct with the cholangioscope we then proceeded with a choledochoduodenostomy. The duodenum was mobilized and and lined up nicely with the 1.5 cm incision in the bile duct. Duodenotomy was then made with the Bovie cautery and that was anastomosed to the bile duct in a [id number] fashion with interrupted 4-0 Maxon sutures. The termination of this a Aden-Andrade drain was laid next to the anastomosis and brought out through a stab wound in the right upper quadrant the abdominal cavity was then copiously irrigated normal saline suctioned dry. We then proceeded with a liver biopsy using a 10 blade we excised a approximately 1 x 1 cm segment of the anterior lip of the right lobe of the liver. This was sent down to pathology. The midline fascia was closed with a running double looped 0 Maxon suture. Skin was closed with standard skin clips. Estimated blood loss was procedures 150 cc sponge and needle counts were correct x2 patient was awakened in the operative extubated transferred recovery stable condition
[2020-05-09] MEDS ORDERED: NORMAL SALINE 1000 ML 1,000 ML IV PRN (18:32)
--- NOTE | 2020-05-09 18:33 | PDOC PROGRESS REPORT ---
Subjective Progress Note for:: 05/09/20 Subjective:: The patient was seen on morning rounds prior to going to the OR. She is found lying in bed, comfortably, on room air. She reports fatigue and generalized abdominal discomfort but otherwise has no questions or concerns at this time. She denied nausea and vomiting at the time of my visit. She further denied fever, chills, chest pain, palpitations, dyspnea. She had no questions or concerns at this time. No concerns per nursing. Reason For Visit: BILIARY STRICTURE, ABDOMINAL PAIN, ELEVATED BILIR- Physical Exam Vital Signs: Temp Pulse Resp BP Pulse Ox 98.2 F 114 H 18 109/68 100 05/09/20 15:24 05/09/20 15:24 05/09/20 15:24 05/09/20 15:24 05/09/20 15:24 Intake & Output 05/08/20 05/09/20 05/10/20 06:59 06:59 06:59 Intake Total 1650 1600 4068 Output Total 1580 Balance 1650 1600 2488 Weight 130 kg 108.4 kg General appearance: PRESENT: no acute distress, cooperative, morbidly obese, well-developed, well-nourished Head exam: PRESENT: atraumatic, normocephalic Eye exam: PRESENT: conjunctiva pink, EOMI, PERRLA. ABSENT: scleral icterus Mouth exam: PRESENT: moist, tongue midline Respiratory exam: PRESENT: clear to auscultation winter, symmetrical, unlabored. ABSENT: rales, rhonchi, wheezes Cardiovascular exam: PRESENT: RRR. ABSENT: diastolic murmur, rubs, systolic murmur Vascular exam: PRESENT: normal capillary refill GI/Abdominal exam: PRESENT: normal bowel sounds, soft, tenderness. ABSENT: distended, guarding, mass, organolmegaly, rebound Rectal exam: PRESENT: deferred Extremities exam: PRESENT: full ROM. ABSENT: calf tenderness, clubbing, pedal edema Musculoskeletal exam: PRESENT: ambulatory Neurological exam: PRESENT: alert, awake, oriented to person, oriented to place, oriented to time, oriented to situation, CN II-XII grossly intact. ABSENT: motor sensory deficit Psychiatric exam: PRESENT: flat affect, normal mood. ABSENT: homicidal ideation, suicidal ideation Skin exam: PRESENT: dry, intact, warm. ABSENT: cyanosis, rash Results Laboratory Results: 05/09/20 09:10 05/09/20 09:10 05/07/20 05/09/20 05/09/20 04:10 09:10 09:10 WBC 13.1 H RBC 4.54 Hgb 10.6 L D Hct 33.7 L MCV 74 L MCH 23.3 L MCHC 31.3 L RDW 24.3 H Plt Count 263 Seg Neutrophils % 83.7 H Sodium 135.8 L Potassium 3.4 L Chloride 105 Carbon Dioxide 25 Anion Gap 6 BUN 8 Creatinine 0.42 L Est GFR ( Amer) > 60 Glucose 61 L Calcium 8.4 Total Bilirubin 4.8 H AST 161 H Alkaline Phosphatase 198 H Total Protein 5.8 L Albumin 2.6 L Lipase 614.0 H Blood Type AB POSITIVE Antibody Screen POSITIVE Impressions: Abdomen Ultrasound 05/07/20 04:47 IMPRESSION: 1. Dilation of the common bile duct again identified measuring 1.2 cm. 2. Hepatic steatosis and hepatomegaly. 3. Prior cholecystectomy. Assessment and Plan - Diagnosis (1) Chronic iron deficiency anemia Is this a current diagnosis for this admission?: Yes Plan: How much of her blood loss is due to possible GI bleeding is unknown, but surgery is consulted. Patient did not want to do a bowel prep. Plan is to do surgery for the biliary stricture tomorrow, and then monitor her as an outpatient with the plan to do a colonoscopy in the near future. Will provide Venofer x1 Oral ferrous sulfate when approved by Surgery. Outpatient surgery follow up for Colonoscopy. Hematology referral for continued iron/H&H monitoring. (2) Biliary stricture Is this a current diagnosis for this admission?: Yes Plan: Management per surgery Now s/p explore laparotomy with choledochoduodenostomy by Dr. Hubbard. (3) Elevated lipase Is this a current diagnosis for this admission?: Yes Plan: N.p.o. except for water Continue IV fluids. Follow-up lipase (4) Hyperbilirubinemia Is this a current diagnosis for this admission?: Yes Plan: Due to biliary stricture, management per surgery Follow-up LFTs. (5) Obesity (BMI 30.0-34.9) Is this a current diagnosis for this admission?: Yes Plan: Strongly encourage lifestyle modification. (6) Heme positive stool Is this a current diagnosis for this admission?: Yes Plan: How much of her blood loss is due to possible GI bleeding is unknown, but surgery is consulted. Outpatient surgical follow-up with the plan to do a colonoscopy in the near future. (7) H/O gastric bypass Is this a current diagnosis for this admission?: Yes (8) Hypokalemia Is this a current diagnosis for this admission?: Yes Plan: IV replacement today. Magnesium normal. Follow-up chemistry. - Time Time Spent with patient: 15-24 minutes Medications reviewed and adjusted accordingly: Yes Anticipated discharge: Home with Homehealth
[2020-05-09] MEDS ORDERED: IRON SUCROSE COMPLEX 300 MG in NORMAL SALINE 250 ML IV ONE (19:30)
[2020-05-10] MEDS: ONDANSETRON HCL INJ/PF 4 MG/2 ML SDV IV PRN ×2 (03:43→09:23)
[2020-05-10] MEDS: MORPHINE SULFATE 10 MG/ML INJ IV PRN ×4 (03:43→18:46)
[2020-05-10] MEDS: POTASSI CL 20 MEQ/D5NS 1L 20 MEQ/1,000 ML RTUINJ IV PRN ×2 (03:43→19:54)
[2020-05-10 06:49] LABS: HEMATOCRIT 39.5 % (36.0-47.0); HEMOGLOBIN 12.4 g/dL (12.0-15.5); MEAN CORPUSCULAR HEMOGLOBIN 23.4 pg (27.0-33.4); MEAN CORPUSCULAR HGB CONC 31.5 g/dL (32.0-36.0); MEAN CORPUSCULAR VOLUME 74 fl (80-97); PLATELET COUNT 300 10^3/uL (150-450); RED BLOOD COUNT 5.32 10^6/uL (3.72-5.28); RED CELL DISTRIBUTION WIDTH 25.1 % (11.5-14.0); WHITE BLOOD COUNT 23.4 10^3/uL (4.0-10.5)
[2020-05-10 07:07] LABS: ALBUMIN 2.6 g/dL (3.5-5.0); ALKALINE PHOSPHATASE 198 U/L (38-126); ANION GAP 8 (5-19); ASPARTATE AMINO TRANSFERASE 153 U/L (14-36); BILIRUBIN,DIRECT 2.3 mg/dL (0.0-0.4); BILIRUBIN,TOTAL 3.3 mg/dL (0.2-1.3); BLOOD UREA NITROGEN 14 mg/dL (7-20); CALCIUM 8.7 mg/dL (8.4-10.2); CARBON DIOXIDE 21 mmol/L (22-30); CHLORIDE 108 mmol/L (98-107); GLUCOSE 115 mg/dL (75-110); POTASSIUM 4.3 mmol/L (3.6-5.0)
[2020-05-10] MEDS ORDERED: NORMAL SALINE 1000 ML 1,000 ML IV ONE ×2 (09:30→23:30)
--- NOTE | 2020-05-10 11:33 | PDOC PROGRESS REPORT ---
Subjective Progress Note for:: 05/10/20 Subjective:: c/o ng tube Reason For Visit: BILIARY STRICTURE, ABDOMINAL PAIN, ELEVATED BILIR- Physical Exam Vital Signs: Temp Pulse Resp BP Pulse Ox 98.0 F 109 H 16 113/76 98 05/10/20 07:15 05/10/20 07:15 05/10/20 07:15 05/10/20 07:15 05/10/20 07:15 Intake & Output 05/09/20 05/10/20 05/11/20 06:59 06:59 06:59 Intake Total 1600 5733 1000 Output Total 2500 Balance 1600 3233 1000 Weight 108.4 kg 113.9 kg General appearance: PRESENT: no acute distress Head exam: PRESENT: normocephalic Eye exam: PRESENT: EOMI Ear exam: PRESENT: normal external ear exam Mouth exam: PRESENT: moist Neck exam: PRESENT: full ROM Respiratory exam: PRESENT: clear to auscultation winter Cardiovascular exam: PRESENT: RRR Pulses: PRESENT: normal radial pulses, normal femoral pulses Vascular exam: PRESENT: normal capillary refill Breast: PRESENT: Normal GI/Abdominal exam: PRESENT: soft, other - deisy serous, not bilious however large amts. Rectal exam: PRESENT: deferred Gentrourinary exam: PRESENT: indwelling catheter, other - bilous urine Musculoskeletal exam: PRESENT: full ROM Neurological exam: PRESENT: alert, awake Psychiatric exam: PRESENT: appropriate affect Skin exam: PRESENT: dry Results Laboratory Results: 05/10/20 06:05 05/10/20 06:05 05/10/20 05/10/20 06:05 06:05 WBC 23.4 H RBC 5.32 H Hgb 12.4 Hct 39.5 MCV 74 L MCH 23.4 L MCHC 31.5 L RDW 25.1 H Plt Count 300 Sodium 137.4 Potassium 4.3 Chloride 108 H Carbon Dioxide 21 L Anion Gap 8 BUN 14 Creatinine 1.15 Est GFR ( Amer) > 60 Glucose 115 H Calcium 8.7 Total Bilirubin 3.3 H AST 153 H Alkaline Phosphatase 198 H Total Protein 6.0 L Albumin 2.6 L Lipase 398.6 H Impressions: Abdomen Ultrasound 05/07/20 04:47 IMPRESSION: 1. Dilation of the common bile duct again identified measuring 1.2 cm. 2. Hepatic steatosis and hepatomegaly. 3. Prior cholecystectomy. Assessment & Plan - Plan Summary Plan Summary: s/p choledochoduodenostomy for distal cbd obstrkuction tbili improved tdoay significant hepatic cirrhoisis noted at thiem of surgery. plan dc ng today out of bed trend lft's and cbc. ice chips
[2020-05-10] MEDS: KETOROLAC TROMETHAMINE INJ/PF 30 MG/1 ML SDV IV PRN (11:55)
--- NOTE | 2020-05-10 16:53 | PDOC PROGRESS REPORT ---
Subjective Subjective:: Patient seen in follow-up. Lying in bed. Complains of incisional pain. Reason For Visit: BILIARY STRICTURE, ABDOMINAL PAIN, ELEVATED BILIR- Physical Exam Vital Signs: Temp Pulse Resp BP Pulse Ox 97.5 F 103 H 16 120/79 99 05/10/20 15:42 05/10/20 15:42 05/10/20 15:42 05/10/20 15:42 05/10/20 15:42 Intake & Output 05/09/20 05/10/20 05/11/20 06:59 06:59 06:59 Intake Total 1600 5733 1000 Output Total 2500 380 Balance 1600 3233 620 Weight 108.4 kg 113.9 kg General appearance: PRESENT: cooperative, mild distress, well-developed, well- nourished, other - Mild distress 2/2 pain Head exam: PRESENT: atraumatic, normocephalic Eye exam: PRESENT: conjunctiva pink Mouth exam: PRESENT: moist, neck supple, tongue midline Neck exam: PRESENT: full ROM. ABSENT: JVD Respiratory exam: PRESENT: clear to auscultation winter, decreased breath sounds - Decreased at bases bilaterally, unlabored. ABSENT: accessory muscle use Cardiovascular exam: PRESENT: RRR, +S1, +S2 Pulses: PRESENT: normal radial pulses Vascular exam: PRESENT: normal capillary refill GI/Abdominal exam: PRESENT: hypoactive bowel sounds, soft, other - Abdomen surgically tender. ROSALVA drain noted with serous returns. Rectal exam: PRESENT: deferred Extremities exam: PRESENT: full ROM, other - Trace pretibial edema bilaterally. ABSENT: calf tenderness Neurological exam: PRESENT: alert, awake, oriented to person, oriented to place, oriented to time, oriented to situation Psychiatric exam: PRESENT: appropriate affect, normal mood. ABSENT: agitated, anxious Skin exam: PRESENT: dry - Mid abdominal incision well approximated without erythema or exudate. Skin clips intact. Dressings C/D/I, warm Results Laboratory Results: 05/10/20 06:05 05/10/20 06:05 05/10/20 05/10/20 06:05 06:05 WBC 23.4 H RBC 5.32 H Hgb 12.4 Hct 39.5 MCV 74 L MCH 23.4 L MCHC 31.5 L RDW 25.1 H Plt Count 300 Sodium 137.4 Potassium 4.3 Chloride 108 H Carbon Dioxide 21 L Anion Gap 8 BUN 14 Creatinine 1.15 Est GFR ( Amer) > 60 Glucose 115 H Calcium 8.7 Total Bilirubin 3.3 H AST 153 H Alkaline Phosphatase 198 H Total Protein 6.0 L Albumin 2.6 L Lipase 398.6 H Impressions: Abdomen Ultrasound 05/07/20 04:47 IMPRESSION: 1. Dilation of the common bile duct again identified measuring 1.2 cm. 2. Hepatic steatosis and hepatomegaly. 3. Prior cholecystectomy. Assessment and Plan - Diagnosis (1) Biliary stricture Is this a current diagnosis for this admission?: Yes Plan: Patient s/p exploratory laparotomy with ventral hernia repair, choledochoduodenoscopy, and liver biopsy on 05/09/2020 Management per surgical service (2) Hyperbilirubinemia Is this a current diagnosis for this admission?: Yes Plan: Bilirubin trending down Continue to monitor (3) Abnormal liver function test Is this a current diagnosis for this admission?: Yes Plan: Slight improvement in AST, ALT slightly more elevated today Hopefully we will see LFTs continue to trend down Continue to monitor (4) Elevated lipase Is this a current diagnosis for this admission?: Yes Plan: Lipase continues to trend down Keep n.p.o. except sips, advance diet per surgery Continue to monitor (5) Acute postoperative pain Is this a current diagnosis for this admission?: Yes Plan: Continued current analgesic plan (morphine sulfate 2 mg IV every 4 hours as needed and Toradol 30 mg IV every 6 hours as needed) Ketorolac will not be a long-term analgesic option given patient's heme positive stools, continue for now and monitor closely Patient continues to have intermittent nausea, continue ondansetron 4 mg IV every 4 hours as needed (6) H/O gastric bypass Is this a current diagnosis for this admission?: Yes Plan: Ongoing supportive care (7) Leukocytosis Is this a current diagnosis for this admission?: Yes Plan: Likely related to surgery Continue to monitor off antibiotics, if remains persistently elevated will check procalcitonin (8) Chronic iron deficiency anemia Is this a current diagnosis for this admission?: Yes Plan: Patient received 300 mg dose of iron sucrose on 05/09/2020 Patient has received total of 4 units PRBCs during current hospitalization Transition to oral iron once cleared by surgery Continue to monitor (9) Heme positive stool Is this a current diagnosis for this admission?: Yes Plan: It is unclear how much of patient's anemia was due to GI loss Iron and transfusion as noted above Placed on pantoprazole 40 mg IV daily Continue to monitor closely Will need outpatient endoscopy (10) Hypokalemia Is this a current diagnosis for this admission?: Yes Plan: Resolved Continue to monitor Replete PRN - Plan Summary Summary: Patient POD #1 and progressing as expected. Continue to monitor LFTs, bilirubin, lipase, H/H, and WBC - Time Time Spent with patient: 25-34 minutes
[2020-05-10] MEDS: PANTOPRAZOLE SODIUM 40 MG VIAL IV SCH (18:46)
[2020-05-10] MEDS ORDERED: NORMAL SALINE 500 ML IV ONE (20:30)
[2020-05-11] MEDS: POTASSI CL 20 MEQ/D5NS 1L 20 MEQ/1,000 ML RTUINJ IV PRN (04:48)
[2020-05-11] MEDS: ONDANSETRON HCL INJ/PF 4 MG/2 ML SDV IV PRN ×2 (04:48→14:59)
[2020-05-11] MEDS: KETOROLAC TROMETHAMINE INJ/PF 30 MG/1 ML SDV IV PRN (04:48)
[2020-05-11 05:07] LABS: HEMATOCRIT 37.6 % (36.0-47.0); HEMOGLOBIN 11.4 g/dL (12.0-15.5); MEAN CORPUSCULAR HEMOGLOBIN 22.6 pg (27.0-33.4); MEAN CORPUSCULAR HGB CONC 30.3 g/dL (32.0-36.0); MEAN CORPUSCULAR VOLUME 75 fl (80-97); PLATELET COUNT 285 10^3/uL (150-450); RED BLOOD COUNT 5.04 10^6/uL (3.72-5.28); RED CELL DISTRIBUTION WIDTH 25.6 % (11.5-14.0); WHITE BLOOD COUNT 21.7 10^3/uL (4.0-10.5)
[2020-05-11 05:24] LABS: ALBUMIN 2.3 g/dL (3.5-5.0); ALKALINE PHOSPHATASE 149 U/L (38-126); ASPARTATE AMINO TRANSFERASE 112 U/L (14-36); BILIRUBIN,DIRECT 1.9 mg/dL (0.0-0.4); BILIRUBIN,TOTAL 2.8 mg/dL (0.2-1.3); BLOOD UREA NITROGEN 22 mg/dL (7-20); CALCIUM 8.2 mg/dL (8.4-10.2); CARBON DIOXIDE 22 mmol/L (22-30); CHLORIDE 110 mmol/L (98-107); GLUCOSE 110 mg/dL (75-110); TOTAL PROTEIN 5.3 g/dL (6.3-8.2)
[2020-05-11 05:31] LABS: ANION GAP 3 (5-19)
[2020-05-11 05:36] LABS: ABSOLUTE MONOCYTES # (MANUAL) 0.7 10^3/uL (0.1-1.4); BASOPHILS % (MANUAL) 0 % (0-2); EOSINOPHILS % (MANUAL) 0 % (0-6); HYPOCHROMASIA 1+; LYMPHOCYTES % (MANUAL) 9 % (13-45); MONOCYTES % (MANUAL) 3 % (3-13); SEGMENTED NEUTROPHILS % (MAN) 88 % (42-78); TOTAL CELLS COUNTED 100
[2020-05-11 05:37] LABS: ANISOCYTOSIS 3+; PLATELET CLUMPS PRESENT; PLATELET COMMENT ADEQUATE; PLATELET GIANT PRESENT; POIKILOCYTOSIS SLIGHT; TARGET CELLS 1+
--- NOTE | 2020-05-11 08:45 | PDOC PROGRESS REPORT ---
Subjective Progress Note for:: 05/11/20 Subjective:: Patient seen in follow-up. At time of exam patient was resting quietly in bed. States that pain is significantly improved today. Reason For Visit: BILIARY STRICTURE, ABDOMINAL PAIN, ELEVATED BILIR- Physical Exam Vital Signs: Temp Pulse Resp BP Pulse Ox 98.0 F 89 17 109/75 100 05/11/20 07:25 05/11/20 07:25 05/11/20 07:25 05/11/20 07:25 05/11/20 07:25 Intake & Output 05/10/20 05/11/20 05/12/20 06:59 06:59 06:59 Intake Total 5733 3390 Output Total 2500 1695 Balance 3233 1695 Weight 113.9 kg 118.7 kg General appearance: PRESENT: no acute distress, cooperative, obese, well- developed, well-nourished Head exam: PRESENT: atraumatic, normocephalic Eye exam: PRESENT: conjunctiva pink Mouth exam: PRESENT: moist, tongue midline Neck exam: PRESENT: full ROM, JVD Respiratory exam: PRESENT: clear to auscultation winter, decreased breath sounds - Air entry slightly diminished at bases bilaterally, symmetrical, unlabored. ABSENT: accessory muscle use Cardiovascular exam: PRESENT: RRR, +S1, +S2 Pulses: PRESENT: normal radial pulses Vascular exam: PRESENT: normal capillary refill GI/Abdominal exam: PRESENT: hypoactive bowel sounds, soft, other - Abdomen remains surgically tender. ROSALVA drain with serous drainage. Mid abdominal incision well approximated without erythema or exudate. Dressing C/D/I Rectal exam: PRESENT: deferred Extremities exam: PRESENT: full ROM, other - Trace pretibial edema bilaterally. ABSENT: calf tenderness Musculoskeletal exam: PRESENT: full ROM Neurological exam: PRESENT: alert, awake, oriented to person, oriented to place, oriented to time, oriented to situation, CN II-XII grossly intact Psychiatric exam: PRESENT: appropriate affect, normal mood. ABSENT: agitated, anxious Skin exam: PRESENT: dry, warm, other - See abdominal exam above Results Laboratory Results: 05/11/20 04:46 05/11/20 04:46 05/11/20 05/11/20 04:46 04:46 WBC 21.7 H RBC 5.04 Hgb 11.4 L Hct 37.6 MCV 75 L MCH 22.6 L MCHC 30.3 L RDW 25.6 H Plt Count 285 Seg Neutrophils % Not Reportable Sodium 134.9 L Potassium 4.0 Chloride 110 H Carbon Dioxide 22 Anion Gap 3 L BUN 22 H Creatinine 2.01 H Est GFR ( Amer) 32 L Glucose 110 Calcium 8.2 L Total Bilirubin 2.8 H AST 112 H Alkaline Phosphatase 149 H Total Protein 5.3 L Albumin 2.3 L Impressions: Abdomen Ultrasound 05/07/20 04:47 IMPRESSION: 1. Dilation of the common bile duct again identified measuring 1.2 cm. 2. Hepatic steatosis and hepatomegaly. 3. Prior cholecystectomy. Assessment and Plan - Diagnosis (1) Biliary stricture Is this a current diagnosis for this admission?: Yes Plan: Patient s/p exploratory laparotomy with ventral hernia repair, choledochoduodenoscopy, and liver biopsy on 05/09/2020 Progressing well Management per surgical service (2) Hyperbilirubinemia Is this a current diagnosis for this admission?: Yes Plan: Bilirubin continues to trend down Continue to monitor (3) Abnormal liver function test Is this a current diagnosis for this admission?: Yes Plan: AST and alk phos continue to trend down, ALT now WNL Continue to monitor (4) Elevated lipase Is this a current diagnosis for this admission?: Yes Plan: Lipase continues to trend down Keep n.p.o. except sips, advance diet per surgery Recheck lipase in a.m. (5) Acute postoperative pain Is this a current diagnosis for this admission?: Yes Plan: Pain improved this a.m., continue morphine 2 mg IV every 4 hours as needed Ketorolac stopped 2/2 renal function Patient continues to have intermittent nausea, continue ondansetron 4 mg IV every 4 hours as needed (6) H/O gastric bypass Is this a current diagnosis for this admission?: Yes Plan: Ongoing supportive care (7) Leukocytosis Is this a current diagnosis for this admission?: Yes Plan: Patient afebrile and nontoxic in appearance Check procalcitonin Importance of mobility reviewed with patient, patient is not motivated to move OOB 3 times daily IS every hour Patient started on Unasyn by surgery (8) Chronic iron deficiency anemia Is this a current diagnosis for this admission?: Yes Plan: Patient received 300 mg dose of iron sucrose on 05/09/2020 Patient has received total of 4 units PRBCs during current hospitalization Transition to oral iron once cleared by surgery Continue to monitor (9) Heme positive stool Is this a current diagnosis for this admission?: Yes Plan: It is unclear how much of patient's anemia was due to GI loss Iron and transfusion as noted above Continue pantoprazole 40 mg IV daily Continue to monitor closely Will need outpatient endoscopy (10) Hypokalemia Is this a current diagnosis for this admission?: Yes Plan: Resolved Continue to monitor Replete PRN (11) KEERTHI (acute kidney injury) Is this a current diagnosis for this admission?: Yes Plan: Decline in patient's renal function noted on morning labs Likely related to the fact that the patient got behind on fluids Bolus 1000 cc LR Change IV fluid to LR at 150 cc/h Avoid nephrotoxins, ketorolac stopped Monitor - Plan Summary Summary: Patient POD #1 and progressing as expected. Continue to monitor LFTs, bilirubin, lipase, H/H, and WBC - Time Time Spent with patient: 25-34 minutes Medications reviewed and adjusted accordingly: Yes - Inpatient Certification Based on my medical assessment, after consideration of the patient's comorbidities, presenting symptoms, or acuity I expect that the services needed warrant INPATIENT care.: Yes I certify that my determination is in accordance with my understanding of Medicare's requirements for reasonable and necessary INPATIENT services [42 CFR 412.3e].: Yes Medical Necessity: Need For IV Fluids, Need for Pain Control, Need for IV Antibiotics, Need for Surgery
[2020-05-11] MEDS ORDERED: RINGERS SOLUTION,LACTATED 1,000 ML IV ONE (09:19)
[2020-05-11] MEDS ORDERED: 1/2 NORMAL SALINE 1,000 ML IV ONE (09:22)
[2020-05-11] MEDS: PANTOPRAZOLE SODIUM 40 MG VIAL IV SCH (09:32)
--- NOTE | 2020-05-11 09:33 | PDOC PROGRESS REPORT ---
Subjective Progress Note for:: 05/11/20 Subjective:: still refuses to get out of bed nurses try, physical therapy tries to no avail. Reason For Visit: BILIARY STRICTURE, ABDOMINAL PAIN, ELEVATED BILIR- Physical Exam Vital Signs: Temp Pulse Resp BP Pulse Ox 98.0 F 89 17 109/75 100 05/11/20 07:25 05/11/20 07:25 05/11/20 07:25 05/11/20 07:25 05/11/20 07:25 Intake & Output 05/10/20 05/11/20 05/12/20 06:59 06:59 06:59 Intake Total 5733 3390 Output Total 2500 1695 Balance 3233 1695 Weight 113.9 kg 118.7 kg General appearance: PRESENT: no acute distress Head exam: PRESENT: normocephalic Eye exam: PRESENT: EOMI Mouth exam: PRESENT: other Teeth exam: PRESENT: poor dentation Neck exam: PRESENT: full ROM Respiratory exam: PRESENT: clear to auscultation winter Cardiovascular exam: PRESENT: RRR Vascular exam: PRESENT: normal capillary refill Breast: PRESENT: Normal GI/Abdominal exam: PRESENT: soft - deisy serous bilious fluid ascites, wound dry. Rectal exam: PRESENT: deferred Extremities exam: PRESENT: full ROM Musculoskeletal exam: PRESENT: full ROM Neurological exam: PRESENT: alert, awake, oriented to person, oriented to place Psychiatric exam: PRESENT: appropriate affect Skin exam: PRESENT: dry Results Laboratory Results: 05/11/20 04:46 05/11/20 04:46 05/11/20 05/11/20 04:46 04:46 WBC 21.7 H RBC 5.04 Hgb 11.4 L Hct 37.6 MCV 75 L MCH 22.6 L MCHC 30.3 L RDW 25.6 H Plt Count 285 Seg Neutrophils % Not Reportable Sodium 134.9 L Potassium 4.0 Chloride 110 H Carbon Dioxide 22 Anion Gap 3 L BUN 22 H Creatinine 2.01 H Est GFR ( Amer) 32 L Glucose 110 Calcium 8.2 L Total Bilirubin 2.8 H AST 112 H Alkaline Phosphatase 149 H Total Protein 5.3 L Albumin 2.3 L Impressions: Abdomen Ultrasound 05/07/20 04:47 IMPRESSION: 1. Dilation of the common bile duct again identified measuring 1.2 cm. 2. Hepatic steatosis and hepatomegaly. 3. Prior cholecystectomy. Assessment & Plan - Plan Summary Plan Summary: pt with rising creat most likely due to dehyidration creat 2.0 today bili trending down as is lft's pt still refusing to get out of bed despite pain being controlled I had a long discussion about her mortality risks and lack of mobility, poor previoius medical care lack of follow up previously after her gastric bypass yearsago she doesnot seem respond with any desire to improve her condition. lack of motivation. will bolus with iv saline now. unisyn abx.
[2020-05-11] MEDS: MORPHINE SULFATE 10 MG/ML INJ IV PRN ×3 (11:27→16:59)
[2020-05-11] MEDS: AMPICILLIN SODIUM/SULBACTAM NA 3 GM in NORMAL SALINE 100 ML IV SCH ×2 (15:00→19:00)
[2020-05-11] MEDS ORDERED: MORPHINE SULFATE 10 MG/ML INJ IV ONE (16:44)
[2020-05-11] MEDS: RINGERS SOLUTION,LACTATED 1,000 ML IV PRN (16:49)
[2020-05-11 16:57] LABS: BLOOD UREA NITROGEN 24 mg/dL (7-20); CALCIUM 8.5 mg/dL (8.4-10.2); GLUCOSE 93 mg/dL (75-110); POTASSIUM 4.3 mmol/L (3.6-5.0)
[2020-05-11 17:02] LABS: CARBON DIOXIDE 21 mmol/L (22-30); CHLORIDE 109 mmol/L (98-107)
[2020-05-11 17:03] LABS: ANION GAP 4 (5-19)
--- NOTE | 2020-05-11 18:50 | Progress Note ---
Provider Note Provider Note: Called by RN to evaluate patient with ongoing incisional pain. Patient has received 2 doses of IV morphine without significant benefit. We will trial dose of hydromorphone 0.5 mg IV x1
[2020-05-11] MEDS ORDERED: HYDROMORPHONE HCL INJ/PF 2 MG/ML AMPULE IV ONE (19:15)
[2020-05-12] MEDS: AMPICILLIN SODIUM/SULBACTAM NA 3 GM in NORMAL SALINE 100 ML IV SCH ×5 (00:09→23:31)
[2020-05-12] MEDS: MORPHINE SULFATE 10 MG/ML INJ IV PRN ×5 (00:10→20:12)
[2020-05-12] MEDS: RINGERS SOLUTION,LACTATED 1,000 ML IV PRN (03:54)
[2020-05-12 06:25] LABS: HEMOGLOBIN 11.7 g/dL (12.0-15.5); MEAN CORPUSCULAR HGB CONC 30.8 g/dL (32.0-36.0); MEAN CORPUSCULAR VOLUME 75 fl (80-97); PLATELET COUNT 287 10^3/uL (150-450); RED BLOOD COUNT 5.08 10^6/uL (3.72-5.28); RED CELL DISTRIBUTION WIDTH 26.6 % (11.5-14.0)
[2020-05-12 06:38] LABS: ALBUMIN 2.3 g/dL (3.5-5.0); ALKALINE PHOSPHATASE 172 U/L (38-126); ANION GAP 7 (5-19); ASPARTATE AMINO TRANSFERASE 136 U/L (14-36); BILIRUBIN,DIRECT 2.8 mg/dL (0.0-0.4); BLOOD UREA NITROGEN 27 mg/dL (7-20); CALCIUM 8.3 mg/dL (8.4-10.2); CARBON DIOXIDE 16 mmol/L (22-30); CHLORIDE 111 mmol/L (98-107); GLUCOSE 93 mg/dL (75-110); POTASSIUM 4.2 mmol/L (3.6-5.0); TOTAL PROTEIN 5.7 g/dL (6.3-8.2)
[2020-05-12 07:12] LABS: WHITE BLOOD COUNT 30.2 10^3/uL (4.0-10.5)
[2020-05-12 07:14] LABS: ABSOLUTE LYMPHOCYTES# (MANUAL) 0.9 10^3/uL (0.5-4.7); BASOPHILS % (MANUAL) 0 % (0-2); EOSINOPHILS % (MANUAL) 0 % (0-6); LYMPHOCYTES % (MANUAL) 2 % (13-45); MONOCYTES % (MANUAL) 10 % (3-13); SEGMENTED NEUTROPHILS % (MAN) 87 % (42-78); TOTAL CELLS COUNTED 100
[2020-05-12 07:17] LABS: ANISOCYTOSIS 3+; HYPOCHROMASIA SLIGHT; PAPPENHEIMER BODIES PRESENT; PLATELET COMMENT ADEQUATE; PLATELET GIANT PRESENT; POIKILOCYTOSIS SLIGHT; POLYCHROMASIA SLIGHT; TARGET CELLS 1+; TEAR DROP CELLS SLIGHT
--- NOTE | 2020-05-12 09:18 | PDOC PROGRESS REPORT ---
Subjective Progress Note for:: 05/12/20 Subjective:: states she feels better, feels dry. thirsty Reason For Visit: BILIARY OBSTRUCTION S/P SURGERY Physical Exam Vital Signs: Temp Pulse Resp BP Pulse Ox 98.1 F 107 H 16 131/65 H 100 05/12/20 07:17 05/12/20 07:17 05/12/20 07:17 05/12/20 07:17 05/12/20 07:17 Intake & Output 05/11/20 05/12/20 05/13/20 06:59 06:59 06:59 Intake Total 3390 3420 100 Output Total 1695 2380 Balance 1695 1040 100 Weight 118.7 kg 119.8 kg General appearance: PRESENT: no acute distress Head exam: PRESENT: normocephalic Eye exam: PRESENT: conjunctival injection, scleral icterus Ear exam: PRESENT: normal external ear exam Mouth exam: PRESENT: dry mucosa Teeth exam: PRESENT: poor dentation Neck exam: PRESENT: full ROM Respiratory exam: PRESENT: clear to auscultation winter Cardiovascular exam: PRESENT: RRR Pulses: PRESENT: normal femoral pulses, normal dorsalis pedis pul Vascular exam: PRESENT: normal capillary refill GI/Abdominal exam: PRESENT: soft Gentrourinary exam: PRESENT: indwelling catheter Extremities exam: PRESENT: full ROM Musculoskeletal exam: PRESENT: full ROM Neurological exam: PRESENT: alert, oriented to person, oriented to place, orien joanne to time, oriented to situation Psychiatric exam: PRESENT: appropriate affect Results Laboratory Results: 05/12/20 05:33 05/12/20 05:33 05/11/20 05/12/20 05/12/20 16:30 05:33 05:33 WBC 30.2 H* RBC 5.08 Hgb 11.7 L Hct 38.0 MCV 75 L MCH 23.0 L MCHC 30.8 L RDW 26.6 H Plt Count 287 Seg Neutrophils % Not Reportable Sodium 133.9 L 134.3 L Potassium 4.3 4.2 Chloride 109 H 111 H Carbon Dioxide 21 L 16 L Anion Gap 4 L 7 BUN 24 H 27 H Creatinine 1.61 H 1.51 H Est GFR ( Amer) 41 L 44 L Glucose 93 93 Calcium 8.5 8.3 L Total Bilirubin 4.0 H AST 136 H Alkaline Phosphatase 172 H Total Protein 5.7 L Albumin 2.3 L Lipase 280.8 Impressions: Abdomen Ultrasound 05/07/20 04:47 IMPRESSION: 1. Dilation of the common bile duct again identified measuring 1.2 cm. 2. Hepatic steatosis and hepatomegaly. 3. Prior cholecystectomy. Assessment & Plan - Plan Summary Plan Summary: wbc elevated to 30k this am tbili 4.0 dehydrated, states she feels better still iw low urine op, however creat down to 1.6 plan dicussed [facility] hospitilist will attempt albumin infusion for third spaced fluid + crystalloid add flagy for better gram neg coverage awaitng return of bowel function.
[2020-05-12] MEDS ORDERED: NORMAL SALINE 1000 ML 1,000 ML IV ONE (09:45)
[2020-05-12] MEDS: PANTOPRAZOLE SODIUM 40 MG VIAL IV SCH (09:55)
[2020-05-12] MEDS ORDERED: ALBUMIN HUMAN 500 ML IV ONE ×2 (10:00→15:00)
--- NOTE | 2020-05-12 10:07 | PDOC PROGRESS REPORT ---
Subjective Progress Note for:: 05/12/20 Subjective:: Patient states that her pain continues to improve. Reason For Visit: BILIARY OBSTRUCTION S/P SURGERY Physical Exam Vital Signs: Temp Pulse Resp BP Pulse Ox 98.1 F 107 H 16 131/65 H 100 05/12/20 07:17 05/12/20 07:17 05/12/20 07:17 05/12/20 07:17 05/12/20 07:17 Intake & Output 05/11/20 05/12/20 05/13/20 06:59 06:59 06:59 Intake Total 3390 3420 100 Output Total 1695 2380 Balance 1695 1040 100 Weight 118.7 kg 119.8 kg General appearance: PRESENT: no acute distress, cooperative, obese, well- developed, well-nourished Head exam: PRESENT: atraumatic, normocephalic Eye exam: PRESENT: scleral icterus - Sclera slightly icteric Mouth exam: PRESENT: moist, tongue midline Neck exam: ABSENT: JVD Respiratory exam: PRESENT: clear to auscultation winter, decreased breath sounds - Air entry diminished at bases bilaterally, symmetrical, unlabored. ABSENT: accessory muscle use, tachypnea Cardiovascular exam: PRESENT: RRR, tachycardia Pulses: PRESENT: normal carotid pulses Vascular exam: PRESENT: normal capillary refill GI/Abdominal exam: PRESENT: guarding, hypoactive bowel sounds, soft, other - Surgically tender. ROSALVA drain intact with serous drainage noted Rectal exam: PRESENT: deferred Extremities exam: PRESENT: full ROM, +1 edema. ABSENT: calf tenderness Musculoskeletal exam: PRESENT: normal inspection Neurological exam: PRESENT: alert, awake, oriented to person, oriented to place, oriented to time, oriented to situation Psychiatric exam: PRESENT: appropriate affect, normal mood. ABSENT: agitated, anxious Skin exam: PRESENT: dry, normal color, warm Results Laboratory Results: 05/12/20 05:33 05/12/20 05:33 05/11/20 05/12/20 05/12/20 16:30 05:33 05:33 WBC 30.2 H* RBC 5.08 Hgb 11.7 L Hct 38.0 MCV 75 L MCH 23.0 L MCHC 30.8 L RDW 26.6 H Plt Count 287 Seg Neutrophils % Not Reportable Sodium 133.9 L 134.3 L Potassium 4.3 4.2 Chloride 109 H 111 H Carbon Dioxide 21 L 16 L Anion Gap 4 L 7 BUN 24 H 27 H Creatinine 1.61 H 1.51 H Est GFR ( Amer) 41 L 44 L Glucose 93 93 Calcium 8.5 8.3 L Total Bilirubin 4.0 H AST 136 H Alkaline Phosphatase 172 H Total Protein 5.7 L Albumin 2.3 L Lipase 280.8 Impressions: Abdomen Ultrasound 05/07/20 04:47 IMPRESSION: 1. Dilation of the common bile duct again identified measuring 1.2 cm. 2. Hepatic steatosis and hepatomegaly. 3. Prior cholecystectomy. Assessment and Plan - Diagnosis (1) Biliary stricture Is this a current diagnosis for this admission?: Yes Plan: Patient s/p exploratory laparotomy with ventral hernia repair, choled ochoduodenoscopy, and liver biopsy on 05/09/2020 Surgical management per surgical service (2) Hyperbilirubinemia Is this a current diagnosis for this admission?: Yes Plan: Bilirubin trending back up, possibly related to hemoconcentration Continue to monitor (3) Abnormal liver function test Is this a current diagnosis for this admission?: Yes Plan: LFTs slightly worse today Continue to monitor (4) Elevated lipase Is this a current diagnosis for this admission?: Yes Plan: Lipase now down to 280 Keep n.p.o. except sips, advance diet per surgery (5) Acute postoperative pain Is this a current diagnosis for this admission?: Yes Plan: Pain improved this a.m., continue morphine 2 mg IV every 4 hours as needed, will utilize hydromorphone for severe pain unrelieved by morphine but order individual doses as needed Ketorolac stopped 2/2 renal function No nausea at this a.m., continue ondansetron 4 mg IV every 4 hours as needed (6) H/O gastric bypass Is this a current diagnosis for this admission?: Yes Plan: Ongoing supportive care (7) Leukocytosis Is this a current diagnosis for this admission?: Yes Plan: WBC trending up possibly related to hemoconcentration however infection cannot be ruled out Patient remains afebrile and nontoxic in appearance Procalcitonin pending Importance of mobility reinforced with patient OOB 3 times daily IS every hour Continue Unasyn started by surgery Metronidazole added today by surgery (8) Chronic iron deficiency anemia Is this a current diagnosis for this admission?: Yes Plan: Patient received 300 mg dose of iron sucrose on 05/09/2020 Patient has received total of 4 units PRBCs during current hospitalization Transition to oral iron once cleared by surgery Continue to monitor (9) Heme positive stool Is this a current diagnosis for this admission?: Yes Plan: It is unclear how much of patient's anemia was due to GI loss Iron and transfusion as noted above Continue pantoprazole 40 mg IV daily H/H overall stable however patient appears hemoconcentrated and this is likely falsely elevating values Continue to monitor closely Will need outpatient endoscopy (10) Hypokalemia Is this a current diagnosis for this admission?: Yes Plan: Resolved Continue to monitor Replete PRN (11) KEERTHI (acute kidney injury) Is this a current diagnosis for this admission?: Yes Plan: Renal function improving Patient continues to appear hypovolemic in spite of fluid boluses on 05/11/2020 Bolus with 500 cc 5% albumin followed by 1 L NS (albumin 2.3) Continue maintenance IVF at 150 cc/hr Continue to avoid nephrotoxins Monitor (12) Hyponatremia Is this a current diagnosis for this admission?: Yes Plan: Change IVF to NS - Time Time Spent with patient: 25-34 minutes Medications reviewed and adjusted accordingly: Yes Anticipated discharge: Home
[2020-05-12] MEDS: METRONIDAZOLE 500 MG/NS RTU 500 MG/100 ML RTUPB IV SCH ×2 (11:59→18:33)
[2020-05-12] MEDS: NORMAL SALINE 1000 ML 1,000 ML IV PRN (12:55)
[2020-05-12] MEDS: ONDANSETRON HCL INJ/PF 4 MG/2 ML SDV IV PRN ×2 (15:04→20:16)
[2020-05-13] MEDS: MORPHINE SULFATE 10 MG/ML INJ IV PRN ×4 (00:08→22:41)
[2020-05-13] MEDS: ONDANSETRON HCL INJ/PF 4 MG/2 ML SDV IV PRN ×5 (00:08→22:41)
[2020-05-13] MEDS: NORMAL SALINE 1000 ML 1,000 ML IV PRN ×2 (00:10→10:26)
[2020-05-13] MEDS: METRONIDAZOLE 500 MG/NS RTU 500 MG/100 ML RTUPB IV SCH ×3 (01:20→18:52)
[2020-05-13] MEDS: AMPICILLIN SODIUM/SULBACTAM NA 3 GM in NORMAL SALINE 100 ML IV SCH ×4 (05:00→22:59)
[2020-05-13 06:02] LABS: HEMATOCRIT 29.8 % (36.0-47.0); MEAN CORPUSCULAR HEMOGLOBIN 23.2 pg (27.0-33.4); MEAN CORPUSCULAR HGB CONC 30.9 g/dL (32.0-36.0); MEAN CORPUSCULAR VOLUME 75 fl (80-97); PLATELET COUNT 202 10^3/uL (150-450); RED BLOOD COUNT 3.98 10^6/uL (3.72-5.28); RED CELL DISTRIBUTION WIDTH 27.3 % (11.5-14.0)
[2020-05-13 06:27] LABS: ANION GAP 6 (5-19); BLOOD UREA NITROGEN 24 mg/dL (7-20); CALCIUM 8.4 mg/dL (8.4-10.2); CARBON DIOXIDE 21 mmol/L (22-30); CHLORIDE 109 mmol/L (98-107); GLUCOSE 70 mg/dL (75-110); POTASSIUM 3.7 mmol/L (3.6-5.0)
[2020-05-13 07:02] LABS: HEMOGLOBIN 9.2 g/dL (12.0-15.5)
[2020-05-13 07:04] LABS: ABSOLUTE LYMPHOCYTES# (MANUAL) 1.4 10^3/uL (0.5-4.7); ABSOLUTE MONOCYTES # (MANUAL) 0.2 10^3/uL (0.1-1.4); BASOPHILS % (MANUAL) 0 % (0-2); EOSINOPHILS % (MANUAL) 0 % (0-6); LYMPHOCYTES % (MANUAL) 6 % (13-45); MONOCYTES % (MANUAL) 1 % (3-13); SEGMENTED NEUTROPHILS % (MAN) 93 % (42-78); TOTAL CELLS COUNTED 100
[2020-05-13 07:07] LABS: ANISOCYTOSIS 3+; OVALOCYTES 2+; PLATELET COMMENT ADEQUATE; POIKILOCYTOSIS 3+; SCHISTOCYTES SLIGHT; TARGET CELLS 1+; TEAR DROP CELLS SLIGHT
--- NOTE | 2020-05-13 07:32 | PDOC PROGRESS REPORT ---
Subjective Progress Note for:: 05/13/20 Subjective:: feels better today was up yesterday, ambulated in hallway Reason For Visit: BILIARY OBSTRUCTION S/P SURGERY Physical Exam Vital Signs: Temp Pulse Resp BP Pulse Ox 97.7 F 83 18 117/63 100 05/13/20 00:04 05/13/20 02:00 05/13/20 00:04 05/13/20 00:04 05/13/20 00:04 Intake & Output 05/12/20 05/13/20 05/14/20 06:59 06:59 06:59 Intake Total 3420 5245 Output Total 2380 985 Balance 1040 4260 Weight 119.8 kg 114 kg General appearance: PRESENT: no acute distress Head exam: PRESENT: normocephalic Eye exam: PRESENT: EOMI Ear exam: PRESENT: normal external ear exam Mouth exam: PRESENT: moist Neck exam: PRESENT: full ROM Respiratory exam: PRESENT: clear to auscultation winter Cardiovascular exam: PRESENT: RRR Pulses: PRESENT: normal radial pulses, normal femoral pulses GI/Abdominal exam: PRESENT: hypoactive bowel sounds, soft Rectal exam: PRESENT: deferred Musculoskeletal exam: PRESENT: full ROM Neurological exam: PRESENT: alert, awake, oriented to person, oriented to place Psychiatric exam: PRESENT: appropriate affect Skin exam: PRESENT: dry Results Laboratory Results: 05/13/20 05:35 05/13/20 05:35 05/13/20 05/13/20 05:35 05:35 WBC 24.0 H RBC 3.98 Hgb 9.2 L D Hct 29.8 L MCV 75 L MCH 23.2 L MCHC 30.9 L RDW 27.3 H Plt Count 202 Seg Neutrophils % Not Reportable Sodium 136.2 L Potassium 3.7 Chloride 109 H Carbon Dioxide 21 L Anion Gap 6 BUN 24 H Creatinine 0.90 Est GFR ( Amer) > 60 Glucose 70 L Calcium 8.4 Impressions: Abdomen Ultrasound 05/07/20 04:47 IMPRESSION: 1. Dilation of the common bile duct again identified measuring 1.2 cm. 2. Hepatic steatosis and hepatomegaly. 3. Prior cholecystectomy. Assessment & Plan - Plan Summary Plan Summary: better hydrated today urine op better, creat now wnl still deisy drainmage of ascites barbara ice chips will advance to clear liquids cont current rx check lft's in am.
[2020-05-13] MEDS: PANTOPRAZOLE SODIUM 40 MG VIAL IV SCH (10:30)
--- NOTE | 2020-05-13 13:19 | PDOC PROGRESS REPORT ---
Subjective Progress Note for:: 05/13/20 Subjective:: Patient states that her pain continues to improve. Reason For Visit: BILIARY OBSTRUCTION S/P SURGERY Physical Exam Vital Signs: Temp Pulse Resp BP Pulse Ox 98.0 F 88 16 122/66 99 05/13/20 07:16 05/13/20 07:16 05/13/20 07:16 05/13/20 07:16 05/13/20 07:16 Intake & Output 05/12/20 05/13/20 05/14/20 06:59 06:59 06:59 Intake Total 3420 6245 Output Total 2380 985 Balance 1040 5260 Weight 119.8 kg 114 kg General appearance: PRESENT: no acute distress, cooperative, obese, well- nourished Head exam: PRESENT: atraumatic, normocephalic Eye exam: PRESENT: scleral icterus Mouth exam: PRESENT: moist, tongue midline Neck exam: ABSENT: JVD Respiratory exam: PRESENT: clear to auscultation winter, decreased breath sounds - There entry diminished at bases bilaterally, symmetrical, unlabored. ABSENT: accessory muscle use Cardiovascular exam: PRESENT: RRR, +S1, +S2 Vascular exam: PRESENT: normal capillary refill GI/Abdominal exam: PRESENT: guarding, hypoactive bowel sounds, soft, other - Surgically tender. ABSENT: rigid Rectal exam: PRESENT: deferred Extremities exam: PRESENT: full ROM, other - Trace pretibial edema bilaterally. ABSENT: calf tenderness Musculoskeletal exam: PRESENT: full ROM Neurological exam: PRESENT: alert, awake, oriented to person, oriented to place, oriented to time, oriented to situation, CN II-XII grossly intact Psychiatric exam: PRESENT: unusual affect. ABSENT: agitated, anxious Skin exam: PRESENT: dry, normal color - Mid abdominal incision well approximated without erythema/exudate. ROSALVA drain intact with serous drainage noted in bulb, warm Results Laboratory Results: 05/13/20 05:35 05/13/20 05:35 05/13/20 05/13/20 05:35 05:35 WBC 24.0 H RBC 3.98 Hgb 9.2 L D Hct 29.8 L MCV 75 L MCH 23.2 L MCHC 30.9 L RDW 27.3 H Plt Count 202 Seg Neutrophils % Not Reportable Sodium 136.2 L Potassium 3.7 Chloride 109 H Carbon Dioxide 21 L Anion Gap 6 BUN 24 H Creatinine 0.90 Est GFR ( Amer) > 60 Glucose 70 L Calcium 8.4 Impressions: Abdomen Ultrasound 05/07/20 04:47 IMPRESSION: 1. Dilation of the common bile duct again identified measuring 1.2 cm. 2. Hepatic steatosis and hepatomegaly. 3. Prior cholecystectomy. Assessment and Plan - Diagnosis (1) Biliary stricture Is this a current diagnosis for this admission?: Yes Plan: Patient s/p exploratory laparotomy with ventral hernia repair, choledochoduodenoscopy, and liver biopsy on 05/09/2020 Continues to have significant output via ROSALVA drain (likely ascites) Surgical management per surgical service (2) Hyperbilirubinemia Is this a current diagnosis for this admission?: Yes Plan: No CMP today Initiate daily CMP starting in a.m. (3) Abnormal liver function test Is this a current diagnosis for this admission?: Yes Plan: CMP not completed today as noted above (4) Elevated lipase Is this a current diagnosis for this admission?: Yes Plan: Last lipase now down to 280 Recheck in a.m. Diet advanced today per surgery to clear liquids (5) Acute postoperative pain Is this a current diagnosis for this admission?: Yes Plan: Adequate operative pain control, continue morphine 2 mg IV every 4 hours as needed, will utilize hydromorphone for severe pain unrelieved by morphine but order individual doses as needed No nausea at this a.m., continue ondansetron 4 mg IV every 4 hours as needed (6) H/O gastric bypass Is this a current diagnosis for this admission?: Yes Plan: Ongoing supportive care (7) Leukocytosis Is this a current diagnosis for this admission?: Yes Plan: WBC trending down Patient remains afebrile and nontoxic in appearance Procalcitonin pending Importance of mobility reinforced with patient OOB 3 times daily IS every hour Continue current antibiotics (Unasyn 3 g IV every 6 hours/metronidazole 500 mg IV every 8 hours (8) Chronic iron deficiency anemia Is this a current diagnosis for this admission?: Yes Plan: Patient received 300 mg dose of iron sucrose on 05/09/2020 Patient has received total of 4 units PRBCs during current hospitalization Transition to oral iron once cleared by surgery Continue to monitor (9) Heme positive stool Is this a current diagnosis for this admission?: Yes Plan: It is unclear how much of patient's anemia was due to GI loss Iron and transfusion as noted above Continue pantoprazole 40 mg IV daily H/H down, likely related to the fact that the patient's volume status is now closer to euvolemia Continue to monitor closely Will need outpatient endoscopy (10) Hypokalemia Is this a current diagnosis for this admission?: Yes Plan: Resolved Continue to monitor Replete PRN (11) KEERTHI (acute kidney injury) Is this a current diagnosis for this admission?: Yes Plan: Renal function improving, patient continues to have mild azotemia however serum creatinine now WNL Continue maintenance IVF at 150 cc/hr Continue to avoid nephrotoxins Monitor (12) Hyponatremia Is this a current diagnosis for this admission?: Yes Plan: Slowly improving Patient remains asymptomatic Continue to monitor - Time Time Spent with patient: 25-34 minutes Medications reviewed and adjusted accordingly: Yes
[2020-05-13 13:36] LABS: PATH REVIEW PATHOLOGIST REVIEWED
[2020-05-13] MEDS ORDERED: ONDANSETRON HCL INJ/PF 4 MG/2 ML SDV IV ONE (19:45)
[2020-05-14] MEDS: METRONIDAZOLE 500 MG/NS RTU 500 MG/100 ML RTUPB IV SCH ×4 (03:31→18:47)
[2020-05-14] MEDS: MORPHINE SULFATE 10 MG/ML INJ IV PRN ×4 (03:37→20:40)
[2020-05-14] MEDS: ONDANSETRON HCL INJ/PF 4 MG/2 ML SDV IV PRN ×4 (03:38→20:40)
[2020-05-14] MEDS: AMPICILLIN SODIUM/SULBACTAM NA 3 GM in NORMAL SALINE 100 ML IV SCH ×3 (05:15→17:43)
[2020-05-14 05:44] LABS: HEMATOCRIT 30.2 % (36.0-47.0); HEMOGLOBIN 9.3 g/dL (12.0-15.5); MEAN CORPUSCULAR HGB CONC 30.8 g/dL (32.0-36.0); MEAN CORPUSCULAR VOLUME 75 fl (80-97); PLATELET COUNT 203 10^3/uL (150-450); RED BLOOD COUNT 4.05 10^6/uL (3.72-5.28); RED CELL DISTRIBUTION WIDTH 27.4 % (11.5-14.0)
[2020-05-14 06:05] LABS: ANION GAP 6 (5-19); BLOOD UREA NITROGEN 17 mg/dL (7-20); CALCIUM 8.5 mg/dL (8.4-10.2); CARBON DIOXIDE 19 mmol/L (22-30); CHLORIDE 112 mmol/L (98-107); GLUCOSE 73 mg/dL (75-110); POTASSIUM 3.7 mmol/L (3.6-5.0)
[2020-05-14 06:26] LABS: ABSOLUTE LYMPHOCYTES# (MANUAL) 2.1 10^3/uL (0.5-4.7); ABSOLUTE MONOCYTES # (MANUAL) 1.2 10^3/uL (0.1-1.4); BAND NEUTROPHILS % (MANUAL) 1 % (3-5); BASOPHILS % (MANUAL) 0 % (0-2); EOSINOPHILS % (MANUAL) 0 % (0-6); LYMPHOCYTES % (MANUAL) 8 % (13-45); MONOCYTES % (MANUAL) 5 % (3-13); SEGMENTED NEUTROPHILS % (MAN) 85 % (42-78); TOTAL CELLS COUNTED 100
[2020-05-14 06:27] LABS: HYPOCHROMASIA 1+
[2020-05-14 06:28] LABS: POLYCHROMASIA SLIGHT; TARGET CELLS 1+; TOXIC VACUOLATION PRESENT
[2020-05-14 06:29] LABS: PLATELET COMMENT ADEQUATE
[2020-05-14 06:31] LABS: ANISOCYTOSIS 3+; POIKILOCYTOSIS SLIGHT
--- NOTE | 2020-05-14 08:14 | PDOC PROGRESS REPORT ---
Subjective Progress Note for:: 05/14/20 Subjective:: feels better barbara clear liquids now passing flatus Reason For Visit: BILIARY OBSTRUCTION S/P SURGERY Physical Exam Vital Signs: Temp Pulse Resp BP Pulse Ox 98.1 F 82 17 125/68 97 05/13/20 22:55 05/14/20 07:00 05/13/20 22:55 05/13/20 22:55 05/13/20 22:55 Intake & Output 05/13/20 05/14/20 05/15/20 06:59 06:59 06:59 Intake Total 6245 3617 Output Total 985 1400 Balance 5260 2217 Weight 114 kg 114 kg General appearance: PRESENT: no acute distress Head exam: PRESENT: normocephalic Eye exam: PRESENT: EOMI Mouth exam: PRESENT: moist Teeth exam: PRESENT: poor dentation Neck exam: PRESENT: full ROM Respiratory exam: PRESENT: clear to auscultation winter Cardiovascular exam: PRESENT: RRR Pulses: PRESENT: normal femoral pulses, normal dorsalis pedis pul Vascular exam: PRESENT: normal capillary refill Breast: PRESENT: Normal GI/Abdominal exam: PRESENT: soft Rectal exam: PRESENT: deferred Gentrourinary exam: PRESENT: indwelling catheter Extremities exam: PRESENT: full ROM Musculoskeletal exam: PRESENT: full ROM Neurological exam: PRESENT: alert, awake, oriented to person Psychiatric exam: PRESENT: appropriate affect Skin exam: PRESENT: dry Results Laboratory Results: 05/14/20 04:51 05/14/20 04:51 05/14/20 05/14/20 04:51 04:51 WBC 23.0 H RBC 4.05 Hgb 9.3 L Hct 30.2 L MCV 75 L MCH 23.0 L MCHC 30.8 L RDW 27.4 H Plt Count 203 Seg Neutrophils % Not Reportable Sodium 136.5 L Potassium 3.7 Chloride 112 H Carbon Dioxide 19 L Anion Gap 6 BUN 17 Creatinine 0.59 Est GFR ( Amer) > 60 Glucose 73 L Calcium 8.5 Lipase 436.8 H Impressions: Abdomen Ultrasound 05/07/20 04:47 IMPRESSION: 1. Dilation of the common bile duct again identified measuring 1.2 cm. 2. Hepatic steatosis and hepatomegaly. 3. Prior cholecystectomy. Assessment & Plan - Plan Summary Plan Summary: pt improving barbara clears wbc still elevated, but trending down lft's still not done. Lab called, plan, cont po liquids check lfts home soon.
[2020-05-14] MEDS: PANTOPRAZOLE SODIUM 40 MG VIAL IV SCH ×2 (10:20→11:59)
[2020-05-14 11:16] LABS: ALBUMIN 2.4 g/dL (3.5-5.0); ALKALINE PHOSPHATASE 172 U/L (38-126); ASPARTATE AMINO TRANSFERASE 131 U/L (14-36); BILIRUBIN,DIRECT 3.2 mg/dL (0.0-0.4); BILIRUBIN,TOTAL 4.6 mg/dL (0.2-1.3); TOTAL PROTEIN 5.4 g/dL (6.3-8.2)
--- NOTE | 2020-05-14 14:57 | RADIOLOGY REPORT (SQ) ---
EXAM DESCRIPTION: PICC INSERTION IMAGES COMPLETED DATE/TIME: 05/14/2020 2:38 pm REASON FOR STUDY: Patient has lost IV and requires IVF and ABX. COMPARISON: None. FLUOROSCOPY TIME: 27 seconds 2 images saved to PACS. TECHNIQUE: Fluoroscopic and ultrasound guided PICC placement. LIMITATIONS: None. PROCEDURE: After written consent and assessment were obtained, the patient was brought into the fluo roscopy room and placed supine on the table. Ultrasound evaluation of potential access sites were per formed. After successfully identifying a patent left basilic vein, the left arm was prepped and drape d in a sterile fashion along with the ultrasound probe. The entry site was anesthetized with 1% lidoc deanne. A 21 gauge 7 cm needle was advanced through the skin and into the basilic vein under live ultra sound guidance. An ultrasound image was saved to PACS confirming access site. A .018 guide wire was then inserted through the needle and into the venous system. The needle was then removed and an 11 b lade scalpel was used to make a 1cm skin incision. A 5 fr peel-away sheath was advanced over the wir e and into the venous system. A measurement was then made using the existing wire and live fluoroscop ic guidance. The wire was then removed and trimmed. The PICC was advanced through the peel-away sheat h and into the venous system. The peel-away sheath was removed and the catheter was adhered to the pa tients arm with a stat lock. The catheter was then aspirated and flushed and a sterile bandage was pl aced over the access site. A fluoroscopic spot image was saved to PACS confirming the catheter tip w ithin the superior vena cava. IMPRESSION: SUCCESSFUL PLACEMENT OF A 5 FR DUAL LUMEN 42 CM PICC IN THE LEFT BASILIC VEIN. COMMENT: Patient medication list reviewed: Yes- Quality ID# [id number]:Eligible professional attests to doc umenting in the medical record they obtained, updated, or reviewed the patient's current medications. . Quality ID 145: Final reports for procedures using fluoroscopy that document radiation exposure josep vane, or exposure time and number of fluorographic images (if radiation exposure indices are not avail able) Quality ID #76: The patient was prepped and draped using maximum sterile barrier technique including cap, mask, sterile gown, sterile gloves, a large sterile sheet, hand hygiene, and 2% Chlorhexidine fo r cutaneous antisepsis. When ultrasound is used, sterile ultrasound techniques are followed requiring sterile gel and sterile probes. TECHNICAL DOCUMENTATION: JOB ID: [id number] 2010 [employer]- All Rights Reserved rev-03/18 Reading location - IP/workstation name: [email or web address]
[2020-05-14] MEDS: NORMAL SALINE 1000 ML 1,000 ML IV PRN (15:26)
[2020-05-14] MEDS ORDERED: MAG HYDROX/AL HYDROX/SIMETH SUSP 30 ML UDCUP PO ONE ×2 (17:56→18:30)
[2020-05-14] MEDS ORDERED: LIDOCAINE 2% VISCOUS SOLN 15 ML UDCUP PO ONE (18:30)
[2020-05-14] MEDS ORDERED: METOCLOPRAMIDE HCL ORAL SOLN 10 MG/10 ML UDCUP PO ONE (18:30)
[2020-05-14] MEDS ORDERED: NITROGLYCERIN 0.4 MG/TAB 25 TAB/BOTTLE SL PRN (18:58)
--- NOTE | 2020-05-14 19:14 | PDOC PROGRESS REPORT ---
Subjective Progress Note for:: 05/14/20 Subjective:: The patient was seen on morning rounds with nursing present. She is found sitting up to the recliner, comfortably, on room air. She reports she is feeling well. Pain is adequately controlled. She is passing gas, has not yet had a bowel movement, but tolerating clear liquid diet well. She is pleased that she was able to ambulate with Physical therapy approximately 80 feet yesterday. She is hopeful to discharge home in the near future. She denies fever, chills, chest pain, palpitations, dyspnea, orthopnea, vomiting diarrhea. She had no questions or concerns at this time. No concerns per nursing. Reason For Visit: BILIARY OBSTRUCTION S/P SURGERY Physical Exam Vital Signs: Temp Pulse Resp BP Pulse Ox 97.9 F 100 19 123/76 99 05/14/20 15:55 05/14/20 15:55 05/14/20 15:55 05/14/20 15:55 05/14/20 15:55 Intake & Output 05/13/20 05/14/20 05/15/20 06:59 06:59 06:59 Intake Total 6245 3617 1440 Output Total 985 1400 610 Balance 5260 2217 830 Weight 114 kg 114 kg 114 kg General appearance: PRESENT: no acute distress, cooperative, morbidly obese, well-developed, well-nourished Head exam: PRESENT: atraumatic, normocephalic Eye exam: PRESENT: conjunctiva pink, EOMI, PERRLA. ABSENT: scleral icterus Mouth exam: PRESENT: moist, tongue midline Respiratory exam: PRESENT: clear to auscultation winter, symmetrical, unlabored. ABSENT: rales, rhonchi, wheezes Cardiovascular exam: PRESENT: RRR, +S1, +S2. ABSENT: diastolic murmur, rubs, systolic murmur Pulses: PRESENT: normal dorsalis pedis pul Vascular exam: PRESENT: normal capillary refill GI/Abdominal exam: PRESENT: normal bowel sounds, soft, tenderness. ABSENT: distended, guarding, mass, organolmegaly, rebound Rectal exam: PRESENT: deferred Extremities exam: PRESENT: full ROM. ABSENT: calf tenderness, clubbing, pedal edema Neurological exam: PRESENT: alert, awake, oriented to person, oriented to place, oriented to time, oriented to situation, CN II-XII grossly intact. ABSENT: motor sensory deficit Psychiatric exam: PRESENT: anxious, appropriate affect, normal mood. ABSENT: homicidal ideation, suicidal ideation Skin exam: PRESENT: dry, warm. ABSENT: cyanosis, rash Results Laboratory Results: 05/14/20 04:51 05/14/20 04:51 05/14/20 05/14/20 05/14/20 04:51 04:51 10:35 WBC 23.0 H RBC 4.05 Hgb 9.3 L Hct 30.2 L MCV 75 L MCH 23.0 L MCHC 30.8 L RDW 27.4 H Plt Count 203 Seg Neutrophils % Not Reportable Sodium 136.5 L Potassium 3.7 Chloride 112 H Carbon Dioxide 19 L Anion Gap 6 BUN 17 Creatinine 0.59 Est GFR ( Amer) > 60 Glucose 73 L Calcium 8.5 Total Bilirubin Cancelled 4.6 H AST Cancelled 131 H Alkaline Phosphatase Cancelled 172 H Total Protein Cancelled 5.4 L Albumin Cancelled 2.4 L Lipase 436.8 H 05/14/20 15:18 Troponin I < 0.012 Impressions: Abdomen Ultrasound 05/07/20 04:47 IMPRESSION: 1. Dilation of the common bile duct again identified measuring 1.2 cm. 2. Hepatic steatosis and hepatomegaly. 3. Prior cholecystectomy. PICC Line Insertion 05/14/20 00:00 IMPRESSION: SUCCESSFUL PLACEMENT OF A 5 FR DUAL LUMEN 42 CM PICC IN THE LEFT BASILIC VEIN. Assessment and Plan - Diagnosis (1) Leukocytosis Is this a current diagnosis for this admission?: Yes Plan: WBC trending down Patient remains afebrile and nontoxic in appearance Importance of mobility reinforced with patient OOB 3 times daily; ambulate twice daily IS every hour Antibiotics per surgical services; currently on Unasyn 3 g IV every 6 hours and metronidazole 500 mg IV every 8 hours (2) Chest pain Qualifiers: Chest pain type: unspecified Qualified Code(s): R07.9 - Chest pain, unspecified Is this a current diagnosis for this admission?: Yes Plan: Atypical chest discomfort. Low suspicion for ACS event. Strong component of anxiety. May also be related to the patient's recent abdominal surgery; lipase remains elevated at 436 Initial troponin and EKG are reassuring. Continue to monitor on continuous cardiac telemetry. Continue to trend troponins. Patient declined trial of GI cocktail. SL nitro tab every 5 as needed pain. IV morphine as ordered by the surgical service (3) Chronic iron deficiency anemia Is this a current diagnosis for this admission?: Yes Plan: Patient received 300 mg dose of iron sucrose on 05/09/2020 Patient has received total of 4 units PRBCs during current hospitalization Transition to oral iron once cleared by surgery Continue to monitor Outpatient PCP follow-up. (4) Biliary stricture Is this a current diagnosis for this admission?: Yes Plan: Patient s/p exploratory laparotomy with ventral hernia repair, choledochoduodenoscopy, and liver biopsy on 05/09/2020 Continues to have significant output via ROSALVA drain (likely ascites) Surgical management per surgical service Follow-up LFTs. (5) Elevated lipase Is this a current diagnosis for this admission?: Yes Plan: Lipase 280-> 439 Diet advanced per surgery to clear liquids Primary management per Dr. Hubbard Continue IV fluids. Analgesics and antiemetics as needed. (6) Hyperbilirubinemia Is this a current diagnosis for this admission?: Yes Plan: LFTs essentially stable. No jaundice or icterus noted on exam today; improved from a prior provider's notes. Primary management per surgery. (7) Obesity (BMI 30.0-34.9) Is this a current diagnosis for this admission?: Yes Plan: BMI 38.2 Strongly encourage lifestyle modification. (8) Heme positive stool Is this a current diagnosis for this admission?: Yes Plan: It is unclear how much of patient's anemia was due to GI loss, surgical losses, or hemodilution Iron and transfusion as noted above No liana blood per rectum, hematochezia, or melena noted. Continue pantoprazole 40 mg IV daily Recommend outpatient endoscopy (9) H/O gastric bypass Is this a current diagnosis for this admission?: Yes Plan: Ongoing supportive care (10) Hypokalemia Is this a current diagnosis for this admission?: Yes Plan: Resolved Continue to monitor Replete PRN (11) KEERTHI (acute kidney injury) Is this a current diagnosis for this admission?: Yes Plan: Resolved. Continue gentle IV fluids. Encourage p.o. fluids; she is now been advanced to clear liquid diet. Continue to avoid nephrotoxins Follow-up chemistry. - Time Time Spent with patient: 35 or more minutes Medications reviewed and adjusted accordingly: Yes Anticipated discharge: Home with Homehealth
--- NOTE | 2020-05-14 21:44 | EKG REPORT ---
SEVERITY:- ABNORMAL ECG - SINUS RHYTHM PROBABLE LEFT ATRIAL ABNORMALITY PROBABLE LEFT VENTRICULAR HYPERTROPHY : Confirmed by: Teo León MD 14-May-2020 21:44:14
[2020-05-15] MEDS: AMPICILLIN SODIUM/SULBACTAM NA 3 GM in NORMAL SALINE 100 ML IV SCH ×4 (02:25→18:10)
[2020-05-15] MEDS: NORMAL SALINE 10 ML SDV (SCHEDULED) IV SCH ×2 (02:26→10:17)
[2020-05-15] MEDS: ONDANSETRON HCL INJ/PF 4 MG/2 ML SDV IV PRN ×4 (02:26→20:18)
[2020-05-15] MEDS: MORPHINE SULFATE 10 MG/ML INJ IV PRN ×4 (02:26→20:18)
[2020-05-15] MEDS: METRONIDAZOLE 500 MG/NS RTU 500 MG/100 ML RTUPB IV SCH ×3 (05:31→17:15)
[2020-05-15] MEDS: NORMAL SALINE 1000 ML 1,000 ML IV PRN ×2 (05:31→15:22)
[2020-05-15 07:21] LABS: HEMOGLOBIN 8.9 g/dL (12.0-15.5); MEAN CORPUSCULAR HGB CONC 30.6 g/dL (32.0-36.0); MEAN CORPUSCULAR VOLUME 75 fl (80-97); PLATELET COUNT 208 10^3/uL (150-450); RED BLOOD COUNT 3.87 10^6/uL (3.72-5.28); RED CELL DISTRIBUTION WIDTH 28.3 % (11.5-14.0); WHITE BLOOD COUNT 22.5 10^3/uL (4.0-10.5)
[2020-05-15 07:41] LABS: ANION GAP 5 (5-19); BLOOD UREA NITROGEN 12 mg/dL (7-20); CALCIUM 8.2 mg/dL (8.4-10.2); CARBON DIOXIDE 20 mmol/L (22-30); CHLORIDE 111 mmol/L (98-107); GLUCOSE 72 mg/dL (75-110); POTASSIUM 3.5 mmol/L (3.6-5.0)
[2020-05-15 07:47] LABS: ABSOLUTE LYMPHOCYTES# (MANUAL) 0.9 10^3/uL (0.5-4.7); ABSOLUTE MONOCYTES # (MANUAL) 1.1 10^3/uL (0.1-1.4); BAND NEUTROPHILS % (MANUAL) 2 % (3-5); BASOPHILS % (MANUAL) 1 % (0-2); EOSINOPHILS % (MANUAL) 0 % (0-6); LYMPHOCYTES % (MANUAL) 4 % (13-45); METAMYELOCYTES % (MANUAL) 1 % (0-1); MONOCYTES % (MANUAL) 5 % (3-13); NUCLEATED RED BLOOD CELLS 1 /100 WBC (0); SEGMENTED NEUTROPHILS % (MAN) 87 % (42-78); TOTAL CELLS COUNTED 100
[2020-05-15 07:49] LABS: HYPOCHROMASIA 1+; POLYCHROMASIA 1+
[2020-05-15 07:50] LABS: ANISOCYTOSIS 4+; PLATELET COMMENT ADEQUATE; POIKILOCYTOSIS SLIGHT; TARGET CELLS 1+; TEAR DROP CELLS SLIGHT
[2020-05-15 08:33] LABS: ALBUMIN 2.1 g/dL (3.5-5.0); ALKALINE PHOSPHATASE 188 U/L (38-126); ASPARTATE AMINO TRANSFERASE 119 U/L (14-36); BILIRUBIN,DIRECT 2.2 mg/dL (0.0-0.4); BILIRUBIN,TOTAL 3.3 mg/dL (0.2-1.3); TOTAL PROTEIN 4.6 g/dL (6.3-8.2)
[2020-05-15] MEDS: PANTOPRAZOLE SODIUM 40 MG VIAL IV SCH (10:16)
--- NOTE | 2020-05-15 12:51 | PDOC PROGRESS REPORT ---
Subjective Progress Note for:: 05/15/20 Subjective:: pt apathetic does not get out of bed appears weak Reason For Visit: BILIARY OBSTRUCTION S/P SURGERY Physical Exam Vital Signs: Temp Pulse Resp BP Pulse Ox 97.9 F 97 18 131/76 H 95 05/15/20 11:05 05/15/20 11:05 05/15/20 11:05 05/15/20 11:05 05/15/20 11:05 Intake & Output 05/14/20 05/15/20 05/16/20 06:59 06:59 06:59 Intake Total 3617 3490 320 Output Total 1400 1210 600 Balance 2217 2280 -280 Weight 114 kg 114 kg General appearance: PRESENT: no acute distress Head exam: PRESENT: normocephalic Eye exam: PRESENT: EOMI, PERRLA Ear exam: PRESENT: normal external ear exam Mouth exam: PRESENT: moist Teeth exam: PRESENT: poor dentation Neck exam: PRESENT: full ROM Respiratory exam: PRESENT: clear to auscultation winter Cardiovascular exam: PRESENT: RRR Pulses: PRESENT: normal femoral pulses, normal dorsalis pedis pul Vascular exam: PRESENT: normal capillary refill GI/Abdominal exam: PRESENT: soft, other - ascitic dr Rectal exam: PRESENT: deferred Gentrourinary exam: PRESENT: indwelling catheter Extremities exam: PRESENT: full ROM, +2 edema Musculoskeletal exam: PRESENT: ambulatory, normal inspection Neurological exam: PRESENT: alert, awake, oriented to person, oriented to place Psychiatric exam: PRESENT: flat affect Skin exam: PRESENT: dry Results Laboratory Results: 05/15/20 06:45 05/15/20 06:45 05/15/20 05/15/20 06:45 06:45 WBC 22.5 H RBC 3.87 Hgb 8.9 L Hct 29.0 L MCV 75 L MCH 23.0 L MCHC 30.6 L RDW 28.3 H Plt Count 208 Seg Neutrophils % Not Reportable Sodium 136.4 L Potassium 3.5 L Chloride 111 H Carbon Dioxide 20 L Anion Gap 5 BUN 12 Creatinine 0.55 Est GFR ( Amer) > 60 Glucose 72 L Calcium 8.2 L Total Bilirubin 3.3 H AST 119 H Alkaline Phosphatase 188 H Total Protein 4.6 L Albumin 2.1 L 05/14/20 05/15/20 15:18 06:45 Troponin I < 0.012 < 0.012 Impressions: Abdomen Ultrasound 05/07/20 04:47 IMPRESSION: 1. Dilation of the common bile duct again identified measuring 1.2 cm. 2. Hepatic steatosis and hepatomegaly. 3. Prior cholecystectomy. PICC Line Insertion 05/14/20 00:00 IMPRESSION: SUCCESSFUL PLACEMENT OF A 5 FR DUAL LUMEN 42 CM PICC IN THE LEFT BASILIC VEIN. Assessment & Plan - Plan Summary Plan Summary: s/p choledochoduodenostomy for biliary obstruction due to chronic pancreatitis and stone slow progress afer surgery malnurishmatthew has really had poor vitamin replacemnt since her gastric bypass plan I will start b12, folate, thamine replacement asked hospitilist to order necessary labs for eval \of her vitamin deficiencies. she will need f/u [facility] bariatric nutritiionist after discharge.
[2020-05-15] MEDS ORDERED: POLYETHYLENE GLYCOL 3350 POWDER 17 GM/1 PACKET PO ONE (13:15)
--- NOTE | 2020-05-15 18:07 | PDOC PROGRESS REPORT ---
Subjective Progress Note for:: 05/15/20 Subjective:: The patient was seen on morning rounds. She is found resting in bed on room air. She reports that she is fatigued today. She reports that she is passing gas but has not yet had a bowel movement. She tells me that her chest discomfort that she reported to nursing yesterday is clearly related to positioning as it worsens when she lies down flat. She believes that this is due to her immobility. She is encouraged to change positions, get up to the recliner, and ambulate. She then tells me that she is unable to ambulate less physical therapy is with her. She is reminded that she has been cleared to ambulate in the room with minimal assistance and a front wheel walker but that if she wishes to walk in the hallways, nursing staff would be available to gisel t her. Physical therapy will be seeing her again today. She is also reminded to use her incentive spirometer. We did discuss her disposition; patient tells me that she intends to discharge to home where she lives with her daughter. She is not interested in short-term rehab at this time. Based on this, she is again encouraged to ambulate as much as possible so that she can be safely independent upon return to home in the near future. She denies fever, chills, palpitations, dyspnea, orthopnea, cough, abdominal pain, vomiting and diarrhea. No concerns per nursing. Reason For Visit: BILIARY OBSTRUCTION S/P SURGERY Physical Exam Vital Signs: Temp Pulse Resp BP Pulse Ox 98.0 F 98 18 132/75 H 100 05/15/20 15:07 05/15/20 15:07 05/15/20 15:07 05/15/20 15:07 05/15/20 15:07 Intake & Output 05/14/20 05/15/20 05/16/20 06:59 06:59 06:59 Intake Total 3617 3490 1405 Output Total 1400 1210 600 Balance 2217 2280 805 Weight 114 kg 114 kg General appearance: PRESENT: no acute distress, morbidly obese, well-developed, well-nourished Head exam: PRESENT: atraumatic, normocephalic Eye exam: PRESENT: conjunctiva pink, EOMI, PERRLA. ABSENT: scleral icterus Mouth exam: PRESENT: moist, tongue midline Respiratory exam: PRESENT: clear to auscultation winter, symmetrical, unlabored. ABSENT: rales, rhonchi, wheezes Cardiovascular exam: PRESENT: RRR. ABSENT: diastolic murmur, rubs, systolic murmur Vascular exam: PRESENT: normal capillary refill GI/Abdominal exam: PRESENT: normal bowel sounds, soft, tenderness. ABSENT: distended, guarding, mass, organolmegaly, rebound Rectal exam: PRESENT: deferred Extremities exam: PRESENT: full ROM. ABSENT: calf tenderness, clubbing, pedal edema Musculoskeletal exam: PRESENT: ambulatory Neurological exam: PRESENT: alert, awake, oriented to person, oriented to place, oriented to time, oriented to situation, CN II-XII grossly intact. ABSENT: motor sensory deficit Psychiatric exam: PRESENT: flat affect, normal mood. ABSENT: homicidal ideation, suicidal ideation Skin exam: PRESENT: dry, intact, warm. ABSENT: cyanosis, rash Results Laboratory Results: 05/15/20 06:45 05/15/20 06:45 05/15/20 05/15/20 06:45 06:45 WBC 22.5 H RBC 3.87 Hgb 8.9 L Hct 29.0 L MCV 75 L MCH 23.0 L MCHC 30.6 L RDW 28.3 H Plt Count 208 Seg Neutrophils % Not Reportable Sodium 136.4 L Potassium 3.5 L Chloride 111 H Carbon Dioxide 20 L Anion Gap 5 BUN 12 Creatinine 0.55 Est GFR ( Amer) > 60 Glucose 72 L Calcium 8.2 L Total Bilirubin 3.3 H AST 119 H Alkaline Phosphatase 188 H Total Protein 4.6 L Albumin 2.1 L 05/14/20 05/15/20 15:18 06:45 Troponin I < 0.012 < 0.012 Impressions: Abdomen Ultrasound 05/07/20 04:47 IMPRESSION: 1. Dilation of the common bile duct again identified measuring 1.2 cm. 2. Hepatic steatosis and hepatomegaly. 3. Prior cholecystectomy. PICC Line Insertion 05/14/20 00:00 IMPRESSION: SUCCESSFUL PLACEMENT OF A 5 FR DUAL LUMEN 42 CM PICC IN THE LEFT BASILIC VEIN. Assessment and Plan - Diagnosis (1) Leukocytosis Is this a current diagnosis for this admission?: Yes Plan: WBC trending down Patient remains afebrile and nontoxic in appearance Importance of mobility reinforced with patient OOB 3 times daily; ambulate twice daily IS every hour Antibiotics per surgical services; currently on Unasyn 3 g IV every 6 hours and metronidazole 500 mg IV every 8 hours (2) Chest pain Qualifiers: Chest pain type: unspecified Qualified Code(s): R07.9 - Chest pain, unspecified Is this a current diagnosis for this admission?: Yes Plan: Atypical chest discomfort. Low suspicion for ACS event. Today reports that she noted that her pain is associated with lying supine. Strong component of anxiety. May also be related to the patient's recent abdominal surgery; lipase remains elevated at 436 Troponin x3 negative EKG are reassuring. Continue to monitor on continuous cardiac telemetry. Patient declined trial of GI cocktail and SL Nitro. She is encouraged to change positions, ambulate, and utilize incentive spirometry. (3) Chronic iron deficiency anemia Is this a current diagnosis for this admission?: Yes Plan: Patient received 300 mg dose of iron sucrose on 05/09/2020 Patient has received total of 4 units PRBCs during current hospitalization Transition to oral iron once cleared by surgery Continue to monitor Outpatient PCP follow-up. (4) Biliary stricture Is this a current diagnosis for this admission?: Yes Plan: Patient s/p exploratory laparotomy with ventral hernia repair, choledochoduodenoscopy, and liver biopsy on 05/09/2020 Continues to have significant output via ROSALVA drain (likely ascites) Surgical management per surgical service Follow-up LFTs are slightly improved. (5) Elevated lipase Is this a current diagnosis for this admission?: Yes Plan: Lipase 280-> 439 Diet advanced per surgery to clear liquids Primary management per Dr. Hubbard Continue IV fluids. Analgesics and antiemetics as needed. (6) Hyperbilirubinemia Is this a current diagnosis for this admission?: Yes Plan: Slight improvement today. No jaundice or icterus noted on exam today; improved from a prior provider's notes. Primary management per surgery. (7) Obesity (BMI 30.0-34.9) Is this a current diagnosis for this admission?: Yes Plan: BMI 38.2 Strongly encourage lifestyle modification. (8) Heme positive stool Is this a current diagnosis for this admission?: Yes Plan: It is unclear how much of patient's anemia was due to GI loss, surgical losses, or hemodilution Iron and transfusion as noted above No liana blood per rectum, hematochezia, or melena noted. Continue pantoprazole 40 mg IV daily Recommend outpatient endoscopy (9) H/O gastric bypass Is this a current diagnosis for this admission?: Yes Plan: Discussed with Dr. Hubbard today. Will assess for vitamin deficiencies. B12 915 Folate 3.47 We will also send out for vitamin D, zinc, copper. These labs will not return for several days. Dr. Hubbard reports that he will review send out labs at outpatient follow-up. (10) Hypokalemia Is this a current diagnosis for this admission?: Yes Plan: Resolved Continue to monitor Replete PRN (11) KEERTHI (acute kidney injury) Is this a current diagnosis for this admission?: Yes Plan: Resolved. Continue gentle IV fluids. Encourage p.o. fluids; she is now been advanced to clear liquid diet. Continue to avoid nephrotoxins Follow-up chemistry.
[2020-05-16] MEDS: NORMAL SALINE 10 ML SDV (SCHEDULED) IV SCH ×2 (00:30→09:06)
[2020-05-16] MEDS: MORPHINE SULFATE 10 MG/ML INJ IV PRN ×5 (00:30→19:59)
[2020-05-16] MEDS: ONDANSETRON HCL INJ/PF 4 MG/2 ML SDV IV PRN ×5 (00:30→20:00)
[2020-05-16] MEDS: AMPICILLIN SODIUM/SULBACTAM NA 3 GM in NORMAL SALINE 100 ML IV SCH ×4 (00:31→18:18)
[2020-05-16] MEDS: NORMAL SALINE 1000 ML 1,000 ML IV PRN (00:31)
[2020-05-16] MEDS: METRONIDAZOLE 500 MG/NS RTU 500 MG/100 ML RTUPB IV SCH ×3 (01:30→19:59)
[2020-05-16 07:33] LABS: HEMATOCRIT 28.1 % (36.0-47.0); HEMOGLOBIN 8.5 g/dL (12.0-15.5); MEAN CORPUSCULAR HEMOGLOBIN 22.6 pg (27.0-33.4); MEAN CORPUSCULAR HGB CONC 30.1 g/dL (32.0-36.0); MEAN CORPUSCULAR VOLUME 75 fl (80-97); PLATELET COUNT 190 10^3/uL (150-450); RED BLOOD COUNT 3.74 10^6/uL (3.72-5.28); WHITE BLOOD COUNT 23.1 10^3/uL (4.0-10.5)
[2020-05-16 07:38] LABS: ALBUMIN 1.9 g/dL (3.5-5.0); ALKALINE PHOSPHATASE 189 U/L (38-126); ANION GAP 5 (5-19); ASPARTATE AMINO TRANSFERASE 115 U/L (14-36); BILIRUBIN,DIRECT 1.8 mg/dL (0.0-0.4); BILIRUBIN,TOTAL 2.7 mg/dL (0.2-1.3); BLOOD UREA NITROGEN 9 mg/dL (7-20); CALCIUM 8.2 mg/dL (8.4-10.2); CARBON DIOXIDE 21 mmol/L (22-30); CHLORIDE 109 mmol/L (98-107); GLUCOSE 75 mg/dL (75-110); POTASSIUM 3.6 mmol/L (3.6-5.0); TOTAL PROTEIN 4.7 g/dL (6.3-8.2)
[2020-05-16 08:18] LABS: ABSOLUTE LYMPHOCYTES# (MANUAL) 1.6 10^3/uL (0.5-4.7); ABSOLUTE MONOCYTES # (MANUAL) 1.4 10^3/uL (0.1-1.4); BASOPHILS % (MANUAL) 0 % (0-2); EOSINOPHILS % (MANUAL) 0 % (0-6); LYMPHOCYTES % (MANUAL) 7 % (13-45); MONOCYTES % (MANUAL) 6 % (3-13); SEGMENTED NEUTROPHILS % (MAN) 87 % (42-78); TOTAL CELLS COUNTED 100
[2020-05-16 08:21] LABS: ANISOCYTOSIS 4+; OVALOCYTES 1+; PLATELET CLUMPS PRESENT; PLATELET COMMENT ADEQUATE; POIKILOCYTOSIS 1+; POLYCHROMASIA SLIGHT; TARGET CELLS 1+
--- NOTE | 2020-05-16 08:31 | PDOC PROGRESS REPORT ---
Subjective Progress Note for:: 05/16/20 Subjective:: feels ok, barbara full liquids still iwth elevated wbc tbili decreased Reason For Visit: BILIARY OBSTRUCTION S/P SURGERY Physical Exam Vital Signs: Temp Pulse Resp BP Pulse Ox 97.7 F 86 18 123/71 100 05/16/20 07:08 05/16/20 07:08 05/16/20 07:08 05/16/20 07:08 05/16/20 07:08 Intake & Output 05/15/20 05/16/20 05/17/20 06:59 06:59 06:59 Intake Total 3490 3716 Output Total 1210 1700 Balance 2280 2015 Weight 114 kg 114 kg General appearance: PRESENT: no acute distress Head exam: PRESENT: normocephalic Eye exam: PRESENT: EOMI Mouth exam: PRESENT: moist Teeth exam: PRESENT: edentulous, poor dentation Neck exam: PRESENT: full ROM Respiratory exam: PRESENT: clear to auscultation winter Cardiovascular exam: PRESENT: RRR Pulses: PRESENT: +2 pedal pulses bilateral, other - left leg sl swollen Breast: PRESENT: Normal GI/Abdominal exam: PRESENT: soft Rectal exam: PRESENT: deferred Neurological exam: PRESENT: alert, awake, oriented to place Psychiatric exam: PRESENT: appropriate affect Skin exam: PRESENT: dry Results Laboratory Results: 05/16/20 07:03 05/16/20 07:03 05/15/20 05/16/20 05/16/20 06:45 07:03 07:03 WBC 23.1 H RBC 3.74 Hgb 8.5 L Hct 28.1 L MCV 75 L MCH 22.6 L MCHC 30.1 L RDW 28.0 H Plt Count 190 Seg Neutrophils % Not Reportable Sodium 136.4 L 135.4 L Potassium 3.5 L 3.6 Chloride 111 H 109 H Carbon Dioxide 20 L 21 L Anion Gap 5 5 BUN 12 9 Creatinine 0.55 0.51 L Est GFR ( Amer) > 60 > 60 Glucose 72 L 75 Calcium 8.2 L 8.2 L Total Bilirubin 3.3 H 2.7 H AST 119 H 115 H Alkaline Phosphatase 188 H 189 H Total Protein 4.6 L 4.7 L Albumin 2.1 L 1.9 L 05/14/20 05/15/20 15:18 06:45 Troponin I < 0.012 < 0.012 Impressions: Abdomen Ultrasound 05/07/20 04:47 IMPRESSION: 1. Dilation of the common bile duct again identified measuring 1.2 cm. 2. Hepatic steatosis and hepatomegaly. 3. Prior cholecystectomy. PICC Line Insertion 05/14/20 00:00 IMPRESSION: SUCCESSFUL PLACEMENT OF A 5 FR DUAL LUMEN 42 CM PICC IN THE LEFT BASILIC VEIN. Assessment & Plan - Plan Summary Plan Summary: doing ok' still no bm despite miralax yesterday will cont miralax and dulcolax doppler for left leg swelling.
[2020-05-16] MEDS ORDERED: BISACODYL 10 MG SUPP.RECT PR ONE (09:00)
[2020-05-16] MEDS ORDERED: POLYETHYLENE GLYCOL 3350 POWDER 17 GM/1 PACKET PO ONE (09:00)
[2020-05-16] MEDS: PANTOPRAZOLE SODIUM 40 MG VIAL IV SCH (09:05)
[2020-05-16] MEDS: THIAMINE HCL 100 MG, FOLIC ACID 1 MG in NORMAL SALINE 250 ML IV SCH (10:40)
[2020-05-16] MEDS: CYANOCOBALAMIN (VITAMIN B-12) INJ 1000 MCG/1 ML VIAL IM SCH (10:41)
--- NOTE | 2020-05-16 12:57 | RADIOLOGY REPORT (SQ) ---
EXAM DESCRIPTION: VENOUS BILATERAL LOWER IMAGES COMPLETED DATE/TIME: 05/16/2020 12:49 pm REASON FOR STUDY: r/o dvt COMPARISON: None. TECHNIQUE: Dynamic and static weber scale and color images acquired of both lower extremity venous sy stems. Selected spectral images acquired with additional compression and augmentation maneuvers. Imag es stored on PACS. LIMITATIONS: None. FINDINGS: RIGHT LEG COMMON FEMORAL AND FEMORAL: Normal phasicity, compression and augmentation. No visualized echogenic m aterial on weber scale. No defects on color images. POPLITEAL: Normal compression and augmentation. No visualized echogenic material on weber scale. No de fects on color images. CALF VESSELS: Normal compression and augmentation. No visualized echogenic material on weber scale. No defects on color image. GSV AND SSV: Normal compression. No visualized echogenic material on weber scale. No defects on color images. ANY DEEP VENOUS INSUFFICIENCY: No. ANY EVIDENCE OF POPLITEAL CYST: No. OTHER: No other significant finding. LEFT LEG COMMON FEMORAL AND FEMORAL: Normal phasicity, compression and augmentation. No visualized echogenic m aterial on weber scale. No defects on color images. POPLITEAL: Normal compression and augmentation. No visualized echogenic material on weber scale. No de fects on color images. CALF VESSELS: Normal compression and augmentation. No visualized echogenic material on weber scale. No defects on color images. GSV AND SSV: Normal compression. No visualized echogenic material on weber scale. No defects on color images. ANY DEEP VENOUS INSUFFICIENCY: No. ANY EVIDENCE POPLITEAL CYST: No. OTHER: No other significant finding. IMPRESSION: NO EVIDENCE DVT OR SVT IN EITHER LEG. TECHNICAL DOCUMENTATION: JOB ID: [id number] [employer]- All Rights Reserved Reading location - IP/workstation name: [email or web address]-
[2020-05-16] MEDS ORDERED: ALBUMIN HUMAN 12.5 GM/50 ML RTUINJ IV SCH (13:24)
[2020-05-16] MEDS ORDERED: FUROSEMIDE INJ/PF 20 MG/2 ML SDV IV PRN (13:29)
[2020-05-16] MEDS ORDERED: KETOROLAC TROMETHAMINE INJ/PF 30 MG/1 ML SDV IV ONE (13:30)
[2020-05-16] MEDS: ALBUMIN HUMAN 12.5 GM/50 ML RTUINJ IV SCH ×4 (16:00→20:00)
--- NOTE | 2020-05-16 19:15 | PDOC PROGRESS REPORT ---
Subjective Progress Note for:: 05/16/20 Subjective:: The patient was seen on morning rounds. She is found resting in bed on room air. She reports that she is fatigued today. She reports that she is passing gas but has not yet had a bowel movement. She again reports "chest pain." On further prompting, patient indicates epigastric pain. She reports that pain was of sudden onset approximately 10-15 min following p.o. intake (milk and pudding). She denies radiation. She does report associated nausea but without emesis. Otherwise, she denies fever, chills, palpitations, dyspnea, orthopnea, cough, vomiting and diarrhea. She has no other questions or concerns at this time. No concerns per nursing. Reason For Visit: BILIARY OBSTRUCTION S/P SURGERY Physical Exam Vital Signs: Temp Pulse Resp BP Pulse Ox 97.9 F 99 17 127/74 H 100 05/16/20 15:21 05/16/20 15:21 05/16/20 15:21 05/16/20 15:21 05/16/20 15:21 Intake & Output 05/15/20 05/16/20 05/17/20 06:59 06:59 06:59 Intake Total 3490 3716 1907.2 Output Total 1210 1700 720 Balance 2280 2016 1187.2 Weight 114 kg 114 kg General appearance: PRESENT: no acute distress, morbidly obese, well-developed, well-nourished Head exam: PRESENT: atraumatic, normocephalic Eye exam: PRESENT: conjunctiva pink, EOMI, PERRLA. ABSENT: scleral icterus Mouth exam: PRESENT: moist, tongue midline Teeth exam: PRESENT: poor dentation Respiratory exam: PRESENT: clear to auscultation winter, symmetrical, unlabored. ABSENT: rales, rhonchi, wheezes Cardiovascular exam: PRESENT: RRR. ABSENT: diastolic murmur, rubs, systolic murmur Pulses: PRESENT: normal dorsalis pedis pul Vascular exam: PRESENT: normal capillary refill GI/Abdominal exam: PRESENT: normal bowel sounds, soft, tenderness - Epigastric. ABSENT: distended, guarding, mass, organolmegaly, rebound Rectal exam: PRESENT: deferred Extremities exam: PRESENT: full ROM. ABSENT: calf tenderness, clubbing, pedal edema Musculoskeletal exam: PRESENT: ambulatory - With front wheel walker Neurological exam: PRESENT: alert, awake, oriented to person, oriented to place, oriented to time, oriented to situation, CN II-XII grossly intact. ABSENT: motor sensory deficit Psychiatric exam: PRESENT: flat affect, normal mood. ABSENT: homicidal ideation, suicidal ideation Skin exam: PRESENT: dry, intact, warm. ABSENT: cyanosis, rash Results Laboratory Results: 05/16/20 07:03 05/16/20 07:03 05/16/20 05/16/20 07:03 07:03 WBC 23.1 H RBC 3.74 Hgb 8.5 L Hct 28.1 L MCV 75 L MCH 22.6 L MCHC 30.1 L RDW 28.0 H Plt Count 190 Seg Neutrophils % Not Reportable Sodium 135.4 L Potassium 3.6 Chloride 109 H Carbon Dioxide 21 L Anion Gap 5 BUN 9 Creatinine 0.51 L Est GFR ( Amer) > 60 Glucose 75 Calcium 8.2 L Total Bilirubin 2.7 H AST 115 H Alkaline Phosphatase 189 H Total Protein 4.7 L Albumin 1.9 L 05/14/20 05/15/20 15:18 06:45 Troponin I < 0.012 < 0.012 Impressions: Abdomen Ultrasound 05/07/20 04:47 IMPRESSION: 1. Dilation of the common bile duct again identified measuring 1.2 cm. 2. Hepatic steatosis and hepatomegaly. 3. Prior cholecystectomy. PICC Line Insertion 05/14/20 00:00 IMPRESSION: SUCCESSFUL PLACEMENT OF A 5 FR DUAL LUMEN 42 CM PICC IN THE LEFT BASILIC VEIN. Venous Doppler Study 05/16/20 00:00 IMPRESSION: NO EVIDENCE DVT OR SVT IN EITHER LEG. Assessment and Plan - Diagnosis (1) Leukocytosis Is this a current diagnosis for this admission?: Yes Plan: WBC trending down overall. Patient remains afebrile and nontoxic in appearance Importance of mobility reinforced with patient OOB 3 times daily; ambulate twice daily IS every hour Antibiotics per surgical services; currently on Unasyn 3 g IV every 6 hours and metronidazole 500 mg IV every 8 hours. Antibiotics per surgical team. (2) Chest pain Qualifiers: Chest pain type: unspecified Qualified Code(s): R07.9 - Chest pain, unspecified Is this a current diagnosis for this admission?: Yes Plan: Atypical chest discomfort. Low suspicion for ACS event. Previously reported pain is associated with lying supine. Today w/ p.o. dairy intake. Strong component of anxiety. May also be related to the patient's recent abdominal surgery; lipase remains elevated at 436 Troponin x3 negative EKG are reassuring. Continue to monitor on continuous cardiac telemetry. Patient declined trial of GI cocktail and SL Nitro. She is encouraged to change positions, ambulate, and utilize incentive spirometr y. Follow up Lipase and LFTs in the am. Antiemetics and analgesics as needed. (3) Chronic iron deficiency anemia Is this a current diagnosis for this admission?: Yes Plan: Patient received 300 mg dose of iron sucrose on 05/09/2020 Patient has received total of 4 units PRBCs during current hospitalization Transition to oral iron once cleared by surgery Outpatient PCP follow-up. (4) Biliary stricture Is this a current diagnosis for this admission?: Yes Plan: Patient s/p exploratory laparotomy with ventral hernia repair, choledochoduodenoscopy, and liver biopsy on 05/09/2020 Continues to have significant output via ROSALVA drain (likely ascites) Surgical management per surgical service Follow-up LFTs are improved. (5) Elevated lipase Is this a current diagnosis for this admission?: Yes Plan: Lipase 280-> 439 Follow up Lipase in am. Diet advanced per surgery to clear liquids Primary management per Dr. Hubbard Continue IV fluids; rate decreased today. Analgesics and antiemetics as needed. (6) Hyperbilirubinemia Is this a current diagnosis for this admission?: Yes Plan: Bili trending down. No jaundice or icterus noted on exam today; improved from a prior provider's notes. Primary management per surgery. (7) Obesity (BMI 30.0-34.9) Is this a current diagnosis for this admission?: Yes Plan: BMI 38.2 Strongly encourage lifestyle modification. (8) Heme positive stool Is this a current diagnosis for this admission?: Yes Plan: It is unclear how much of patient's anemia was due to GI loss, surgical losses, or hemodilution Iron and transfusion as noted above No liana blood per rectum, hematochezia, or melena noted. Continue pantoprazole 40 mg IV daily Recommend outpatient endoscopy (9) H/O gastric bypass Is this a current diagnosis for this admission?: Yes Plan: Discussed with Dr. Hubbard today. Will assess for vitamin deficiencies. B12 915 Folate 3.47 We will also send out for vitamin D, zinc, copper. These labs will not return for several days. Dr. Hubbard reports that he will review send out labs at outpatient follow-up. (10) Hypokalemia Is this a current diagnosis for this admission?: Yes Plan: Resolved Continue to monitor Replete PRN (11) KEERTHI (acute kidney injury) Is this a current diagnosis for this admission?: Yes Plan: Resolved. Continue gentle IV fluids. Encourage p.o. fluids; she is now been advanced to clear liquid diet. Continue to avoid nephrotoxins Follow-up chemistry. - Time Time Spent with patient: 25-34 minutes Medications reviewed and adjusted accordingly: Yes Anticipated discharge: Home with Homehealth
[2020-05-17] MEDS: NORMAL SALINE 10 ML SDV (SCHEDULED) IV SCH ×3 (00:16→22:45)
[2020-05-17] MEDS: AMPICILLIN SODIUM/SULBACTAM NA 3 GM in NORMAL SALINE 100 ML IV SCH ×2 (00:16→05:59)
[2020-05-17] MEDS: MORPHINE SULFATE 10 MG/ML INJ IV PRN ×2 (00:16→04:23)
[2020-05-17] MEDS: ONDANSETRON HCL INJ/PF 4 MG/2 ML SDV IV PRN ×4 (00:17→22:52)
[2020-05-17] MEDS: METRONIDAZOLE 500 MG/NS RTU 500 MG/100 ML RTUPB IV SCH ×3 (04:20→18:09)
[2020-05-17] MEDS: NORMAL SALINE 1000 ML 1,000 ML IV PRN ×2 (04:25→22:45)
[2020-05-17 07:03] LABS: HEMATOCRIT 26.1 % (36.0-47.0); MEAN CORPUSCULAR HEMOGLOBIN 22.8 pg (27.0-33.4); MEAN CORPUSCULAR HGB CONC 30.6 g/dL (32.0-36.0); MEAN CORPUSCULAR VOLUME 75 fl (80-97); PLATELET COUNT 167 10^3/uL (150-450); RED BLOOD COUNT 3.49 10^6/uL (3.72-5.28); RED CELL DISTRIBUTION WIDTH 28.2 % (11.5-14.0); WHITE BLOOD COUNT 25.8 10^3/uL (4.0-10.5)
[2020-05-17 07:26] LABS: ALBUMIN 2.1 g/dL (3.5-5.0); ALKALINE PHOSPHATASE 182 U/L (38-126); ANION GAP 6 (5-19); ASPARTATE AMINO TRANSFERASE 109 U/L (14-36); BILIRUBIN,DIRECT 1.9 mg/dL (0.0-0.4); BILIRUBIN,TOTAL 2.9 mg/dL (0.2-1.3); BLOOD UREA NITROGEN 9 mg/dL (7-20); CARBON DIOXIDE 22 mmol/L (22-30); CHLORIDE 109 mmol/L (98-107); POTASSIUM 3.4 mmol/L (3.6-5.0); TOTAL PROTEIN 4.8 g/dL (6.3-8.2)
[2020-05-17 07:30] LABS: GLUCOSE 65 mg/dL (75-110)
[2020-05-17 07:34] LABS: ABSOLUTE LYMPHOCYTES# (MANUAL) 1.3 10^3/uL (0.5-4.7); BASOPHILS % (MANUAL) 0 % (0-2); EOSINOPHILS % (MANUAL) 0 % (0-6); LYMPHOCYTES % (MANUAL) 5 % (13-45); MONOCYTES % (MANUAL) 4 % (3-13); SEGMENTED NEUTROPHILS % (MAN) 91 % (42-78); TOTAL CELLS COUNTED 100
[2020-05-17 07:36] LABS: ANISOCYTOSIS 4+; HYPOCHROMASIA SLIGHT; PLATELET COMMENT ADEQUATE; POIKILOCYTOSIS SLIGHT; POLYCHROMASIA 1+; TARGET CELLS SLIGHT
[2020-05-17] MEDS ORDERED: POTASSIUM CHLORIDE 20 MEQ PACKET PO ONE (08:30)
[2020-05-17] MEDS: PANTOPRAZOLE SODIUM 40 MG VIAL IV SCH (09:02)
[2020-05-17] MEDS: CYANOCOBALAMIN (VITAMIN B-12) INJ 1000 MCG/1 ML VIAL IM SCH (09:02)
[2020-05-17] MEDS ORDERED: MORPHINE SULFATE 10 MG/ML INJ IV PRN (10:06)
[2020-05-17] MEDS: THIAMINE HCL 100 MG, FOLIC ACID 1 MG in NORMAL SALINE 250 ML IV SCH (10:19)
--- NOTE | 2020-05-17 10:21 | PDOC PROGRESS REPORT ---
Subjective Progress Note for:: 05/17/20 Subjective:: feels ok. no bm Reason For Visit: BILIARY OBSTRUCTION S/P SURGERY Physical Exam Vital Signs: Temp Pulse Resp BP Pulse Ox 97.4 F 110 H 17 129/71 H 100 05/17/20 08:00 05/17/20 08:00 05/17/20 08:00 05/17/20 08:00 05/17/20 08:00 Intake & Output 05/16/20 05/17/20 05/18/20 06:59 06:59 06:59 Intake Total 3716 2747.2 Output Total 1700 1800 Balance 2015 947.2 Weight 114 kg 115 kg General appearance: PRESENT: no acute distress Head exam: PRESENT: normocephalic Eye exam: PRESENT: EOMI Ear exam: PRESENT: normal external ear exam Mouth exam: PRESENT: moist Teeth exam: PRESENT: edentulous, poor dentation Neck exam: PRESENT: full ROM Respiratory exam: PRESENT: clear to auscultation winter Cardiovascular exam: PRESENT: RRR Pulses: PRESENT: normal femoral pulses, normal dorsalis pedis pul Vascular exam: PRESENT: normal capillary refill Breast: PRESENT: Normal GI/Abdominal exam: PRESENT: soft Rectal exam: PRESENT: deferred Extremities exam: PRESENT: full ROM Musculoskeletal exam: PRESENT: full ROM Neurological exam: PRESENT: alert, awake, oriented to person, oriented to place, oriented to time Psychiatric exam: PRESENT: appropriate affect Skin exam: PRESENT: dry Results Laboratory Results: 05/17/20 06:50 05/17/20 06:50 05/17/20 05/17/20 06:50 06:50 WBC 25.8 H RBC 3.49 L Hgb 8.0 L Hct 26.1 L MCV 75 L MCH 22.8 L MCHC 30.6 L RDW 28.2 H Plt Count 167 Seg Neutrophils % Not Reportable Sodium 136.7 L Potassium 3.4 L Chloride 109 H Carbon Dioxide 22 Anion Gap 6 BUN 9 Creatinine 0.59 Est GFR ( Amer) > 60 Glucose 65 L Calcium 8.0 L Total Bilirubin 2.9 H AST 109 H Alkaline Phosphatase 182 H Total Protein 4.8 L Albumin 2.1 L Lipase 306.3 H 05/14/20 05/15/20 15:18 06:45 Troponin I < 0.012 < 0.012 Impressions: Abdomen Ultrasound 05/07/20 04:47 IMPRESSION: 1. Dilation of the common bile duct again identified measuring 1.2 cm. 2. Hepatic steatosis and hepatomegaly. 3. Prior cholecystectomy. PICC Line Insertion 05/14/20 00:00 IMPRESSION: SUCCESSFUL PLACEMENT OF A 5 FR DUAL LUMEN 42 CM PICC IN THE LEFT BASILIC VEIN. Venous Doppler Study 05/16/20 00:00 IMPRESSION: NO EVIDENCE DVT OR SVT IN EITHER LEG. Assessment & Plan - Plan Summary Plan Summary: pt refused dulcolax yesterday no very compliant lfts correcting wbc sl up to 25, dopplers neg no abd pain deisy serouus icterus resolved plan will switch abx to zosyn will wheen off ms dulcolax today if wbc cont to increase will consider ct
[2020-05-17] MEDS ORDERED: NA PHOS,M-B/NA PHOS,DI-BA (ADULT) 133 ML ENEMA PR ONE (10:30)
[2020-05-17] MEDS ORDERED: MAGNESIUM HYDROXIDE SUSP 30 ML UDCUP PO PRN (10:31)
[2020-05-17] MEDS: CHOLECALCIFEROL (D3) 1,000 UNIT (25 MCG) TABLET PO SCH (11:43)
[2020-05-17] MEDS: PIPERACILLIN SODIUM/TAZOBACTAM 3.375 GM in NORMAL SALINE 100 ML IV SCH ×3 (12:41→23:00)
[2020-05-17] MEDS: TRAMADOL HCL 50 MG TABLET PO PRN ×3 (12:47→22:44)
[2020-05-17] MEDS: DOCUSATE SODIUM 100 MG CAPSULE PO SCH (17:02)
--- NOTE | 2020-05-17 17:11 | PDOC PROGRESS REPORT ---
Subjective Progress Note for:: 05/17/20 Subjective:: The patient was seen on morning rounds. She is found resting in bed on room air. She reports that she is fatigued today. She also complains of bilateral hip pain. She states that she has not yet had a bowel movement. She has declined multiple medications with his regard. We had a long discussion regarding her need to increase her fluid intake, to ambulate several times daily, and to discontinue narcotic medications. The patient was not very receptive to recommendations at this time. Nursing was present during conversation and assures that they will continue to provide encouragement. Otherwise, patient denies fever, chills, palpitations, dyspnea, orthopnea, cough, vomiting and diarrhea. She has no other questions or concerns at this time. No concerns per nursing. Reason For Visit: BILIARY OBSTRUCTION S/P SURGERY Physical Exam Vital Signs: Temp Pulse Resp BP Pulse Ox 97.7 F 116 H 17 131/93 H 99 05/17/20 12:00 05/17/20 14:00 05/17/20 12:00 05/17/20 12:00 05/17/20 12:00 Intake & Output 05/16/20 05/17/20 05/18/20 06:59 06:59 06:59 Intake Total 3716 2747.2 961.2 Output Total 1700 1800 90 Balance 2016 947.2 871.2 Weight 114 kg 115 kg General appearance: PRESENT: no acute distress, morbidly obese, well-developed, well-nourished Head exam: PRESENT: atraumatic, normocephalic Eye exam: PRESENT: conjunctiva pink, EOMI, PERRLA. ABSENT: scleral icterus Mouth exam: PRESENT: moist, tongue midline Teeth exam: PRESENT: dental caries, poor dentation Respiratory exam: PRESENT: clear to auscultation winter, symmetrical, unlabored. ABSENT: rales, rhonchi, wheezes Cardiovascular exam: PRESENT: RRR, +S1, +S2. ABSENT: diastolic murmur, rubs, systolic murmur Pulses: PRESENT: normal dorsalis pedis pul Vascular exam: PRESENT: normal capillary refill GI/Abdominal exam: PRESENT: normal bowel sounds, soft, tenderness - epigastric. ABSENT: distended, guarding, mass, organolmegaly, rebound Rectal exam: PRESENT: deferred Gentrourinary exam: PRESENT: indwelling catheter Extremities exam: PRESENT: full ROM. ABSENT: calf tenderness, clubbing, pedal edema, +1 edema Neurological exam: PRESENT: alert, awake, oriented to person, oriented to place, oriented to time, oriented to situation, CN II-XII grossly intact. ABSENT: motor sensory deficit Psychiatric exam: PRESENT: flat affect, normal mood. ABSENT: homicidal ideation, suicidal ideation Skin exam: PRESENT: dry, intact, warm. ABSENT: cyanosis, rash Results Laboratory Results: 05/17/20 06:50 05/17/20 06:50 05/17/20 05/17/20 06:50 06:50 WBC 25.8 H RBC 3.49 L Hgb 8.0 L Hct 26.1 L MCV 75 L MCH 22.8 L MCHC 30.6 L RDW 28.2 H Plt Count 167 Seg Neutrophils % Not Reportable Sodium 136.7 L Potassium 3.4 L Chloride 109 H Carbon Dioxide 22 Anion Gap 6 BUN 9 Creatinine 0.59 Est GFR ( Amer) > 60 Glucose 65 L Calcium 8.0 L Total Bilirubin 2.9 H AST 109 H Alkaline Phosphatase 182 H Total Protein 4.8 L Albumin 2.1 L Lipase 306.3 H 05/14/20 05/15/20 15:18 06:45 Troponin I < 0.012 < 0.012 Impressions: Abdomen Ultrasound 05/07/20 04:47 IMPRESSION: 1. Dilation of the common bile duct again identified measuring 1.2 cm. 2. Hepatic steatosis and hepatomegaly. 3. Prior cholecystectomy. PICC Line Insertion 05/14/20 00:00 IMPRESSION: SUCCESSFUL PLACEMENT OF A 5 FR DUAL LUMEN 42 CM PICC IN THE LEFT BASILIC VEIN. Venous Doppler Study 05/16/20 00:00 IMPRESSION: NO EVIDENCE DVT OR SVT IN EITHER LEG. Assessment and Plan - Diagnosis (1) Leukocytosis Is this a current diagnosis for this admission?: Yes Plan: Slight upward trend today; 13.2-> 30.2-> 22.5-> 25.8 Patient remains afebrile and nontoxic in appearance Importance of mobility reinforced with patient OOB 3 times daily; ambulate 3-4 times daily IS every hour Antibiotics per surgical services. Start IV Zosyn. Continue IV metronidazole. Unasyn is discontinued. (2) Chest pain Qualifiers: Chest pain type: unspecified Qualified Code(s): R07.9 - Chest pain, unspecified Is this a current diagnosis for this admission?: Yes Plan: Resolved. Atypical chest discomfort. Low suspicion for ACS event. Previously reported pain is associated with lying supine and p.o. dairy intake. Strong component of anxiety. May also be related to the patient's recent abdominal surgery; lipase remains elevated at 436 Troponin x3 negative EKG are reassuring. Continue to monitor on continuous cardiac telemetry. Patient declined trial of GI cocktail and SL Nitro. She is encouraged to change positions, ambulate, and utilize incentive spirometry. Antiemetics and analgesics as needed. (3) Chronic iron deficiency anemia Is this a current diagnosis for this admission?: Yes Plan: Patient received 300 mg dose of iron sucrose on 05/09/2020 Patient has received total of 4 units PRBCs during current hospitalization Transition to oral iron once cleared by surgery Outpatient PCP follow-up. (4) Biliary stricture Is this a current diagnosis for this admission?: Yes Plan: Patient s/p exploratory laparotomy with ventral hernia repair, choledochoduodenoscopy, and liver biopsy on 05/09/2020 Continues to have significant output via ROSALVA drain (likely ascites) Surgical management per surgical service LFTs and lipase continue to improve. (5) Elevated lipase Is this a current diagnosis for this admission?: Yes Plan: Lipase 280-> 439-> 306 Follow up Lipase in am. Diet advanced per surgery Primary management per Dr. Hubbard IV fluids decreased to KVO. Encourage p.o. fluids. Analgesics and antiemetics as needed. (6) Hyperbilirubinemia Is this a current diagnosis for this admission?: Yes Plan: Overall, trending down. No jaundice or icterus noted on exam Primary management per surgery. (7) Obesity (BMI 30.0-34.9) Is this a current diagnosis for this admission?: Yes Plan: BMI 38.5 Strongly encourage dietary compliance and lifestyle modification. (8) Heme positive stool Is this a current diagnosis for this admission?: Yes Plan: It is unclear how much of patient's anemia was due to GI loss, surgical losses, or hemodilution Iron and transfusion as noted above No liana blood per rectum, hematochezia, or melena noted. Continue pantoprazole 40 mg IV daily Recommend outpatient endoscopy (9) H/O gastric bypass Is this a current diagnosis for this admission?: Yes Plan: Discussed with Dr. Hubbard today. Will assess for vitamin deficiencies. B12 915 Folate 3.47 Vitamin D low; start Vit D3 1000u daily We will also send out for zinc, copper. These labs will not return for several days. Dr. Hubbard reports that he will review send out labs at outpatient follow-up. (10) Hypokalemia Is this a current diagnosis for this admission?: Yes Plan: Resolved Continue to monitor Replete PRN (11) KEERTHI (acute kidney injury) Is this a current diagnosis for this admission?: Yes Plan: Resolved. Continue gentle IV fluids. Encourage p.o. fluids; she is now been advanced to clear liquid diet. Continue to avoid nephrotoxins Follow-up chemistry. (12) Constipation Is this a current diagnosis for this admission?: Yes Plan: Aggressive bowel regiment; Colace twice daily, MiraLAX daily, milk of mag nightly if she has not had a bowel movement within 24 hours. Patient has declined both Dulcolax suppository and fleets enema. She is encouraged to drink water and to ambulate 3-4 times daily in the hallway. We will discontinue IV morphine due to concern about worsening constipation and this, in fact, is likely causing her to have worsened and persistent abdominal discomfort. - Time Time Spent with patient: 35 or more minutes Medications reviewed and adjusted accordingly: Yes Anticipated discharge: Home with Homehealth Within: within 72 hours - per Surgical team; likely d/c Wednesday
[2020-05-18] MEDS: METRONIDAZOLE 500 MG/NS RTU 500 MG/100 ML RTUPB IV SCH ×3 (01:00→18:45)
[2020-05-18] MEDS: PANTOPRAZOLE SODIUM 40 MG TABLET.DR PO SCH (05:42)
[2020-05-18] MEDS: PIPERACILLIN SODIUM/TAZOBACTAM 3.375 GM in NORMAL SALINE 100 ML IV SCH ×3 (05:43→17:53)
[2020-05-18 06:03] LABS: HEMATOCRIT 25.3 % (36.0-47.0); MEAN CORPUSCULAR HEMOGLOBIN 22.8 pg (27.0-33.4); MEAN CORPUSCULAR HGB CONC 30.7 g/dL (32.0-36.0); MEAN CORPUSCULAR VOLUME 74 fl (80-97); PLATELET COUNT 170 10^3/uL (150-450); RED BLOOD COUNT 3.41 10^6/uL (3.72-5.28); RED CELL DISTRIBUTION WIDTH 28.2 % (11.5-14.0); WHITE BLOOD COUNT 25.3 10^3/uL (4.0-10.5)
[2020-05-18 06:16] LABS: ALBUMIN 1.8 g/dL (3.5-5.0); ALKALINE PHOSPHATASE 175 U/L (38-126); ANION GAP 5 (5-19); ASPARTATE AMINO TRANSFERASE 96 U/L (14-36); BILIRUBIN,DIRECT 1.7 mg/dL (0.0-0.4); BILIRUBIN,TOTAL 2.7 mg/dL (0.2-1.3); BLOOD UREA NITROGEN 7 mg/dL (7-20); CALCIUM 7.8 mg/dL (8.4-10.2); CARBON DIOXIDE 22 mmol/L (22-30); CHLORIDE 108 mmol/L (98-107); GLUCOSE 70 mg/dL (75-110); POTASSIUM 3.3 mmol/L (3.6-5.0); TOTAL PROTEIN 4.7 g/dL (6.3-8.2)
[2020-05-18 06:30] LABS: HEMOGLOBIN 7.8 g/dL (12.0-15.5)
[2020-05-18] MEDS: TRAMADOL HCL 50 MG TABLET PO PRN ×3 (06:52→20:22)
[2020-05-18] MEDS: ONDANSETRON HCL INJ/PF 4 MG/2 ML SDV IV PRN ×3 (06:53→20:22)
[2020-05-18] MEDS ORDERED: POTASSIUM CHLORIDE 10 MEQ TABLET.ER PO ONE (09:00)
[2020-05-18] MEDS: CHOLECALCIFEROL (D3) 1,000 UNIT (25 MCG) TABLET PO SCH (09:59)
[2020-05-18] MEDS: DOCUSATE SODIUM 100 MG CAPSULE PO SCH ×2 (09:59→17:29)
[2020-05-18] MEDS: THIAMINE HCL 100 MG, FOLIC ACID 1 MG in NORMAL SALINE 250 ML IV SCH (10:00)
[2020-05-18] MEDS: POLYETHYLENE GLYCOL 3350 POWDER 17 GM/1 PACKET PO SCH (10:01)
[2020-05-18] MEDS: LIDOCAINE 5% (700 MG) TRANSDERMAL ADH..PATCH TP SCH (10:02)
[2020-05-18] MEDS: CYANOCOBALAMIN (VITAMIN B-12) INJ 1000 MCG/1 ML VIAL IM SCH (10:02)
[2020-05-18] MEDS: NORMAL SALINE 10 ML SDV (SCHEDULED) IV SCH ×2 (11:59→21:22)
[2020-05-18] MEDS ORDERED: METOPROLOL TARTRATE 25 MG TABLET PO ONE (13:00)
[2020-05-18 14:11] LABS: HEMATOCRIT 27.8 % (36.0-47.0); HEMOGLOBIN 8.4 g/dL (12.0-15.5); MEAN CORPUSCULAR HEMOGLOBIN 22.6 pg (27.0-33.4); MEAN CORPUSCULAR HGB CONC 30.2 g/dL (32.0-36.0); MEAN CORPUSCULAR VOLUME 75 fl (80-97); PLATELET COUNT 179 10^3/uL (150-450); RED BLOOD COUNT 3.72 10^6/uL (3.72-5.28); RED CELL DISTRIBUTION WIDTH 28.1 % (11.5-14.0); WHITE BLOOD COUNT 29.8 10^3/uL (4.0-10.5)
--- NOTE | 2020-05-18 16:36 | PDOC PROGRESS REPORT ---
Subjective Progress Note for:: 05/18/20 Subjective:: The patient was seen on morning rounds. She is sitting up to the recliner, comfortably, on room air. She reports that she is feeling well today. Tramadol and Lidoderm patches have been adequate for controlling her discomfort. Increased appetite and p.o. intake (100% of breakfast this morning). She reports some mild abdominal cramping related to bowel movements but otherwise states that her pain is improved. Otherwise, she denies fever, chills, palpitations, dyspnea, orthopnea, cough, nausea, vomiting and diarrhea. She has no other questions or concerns at this time. No concerns per nursing. Reason For Visit: BILIARY OBSTRUCTION S/P SURGERY Physical Exam Vital Signs: Temp Pulse Resp BP Pulse Ox 98.0 F 105 H 16 115/71 100 05/18/20 12:00 05/18/20 14:00 05/18/20 12:00 05/18/20 12:00 05/18/20 12:00 Intake & Output 05/17/20 05/18/20 05/19/20 06:59 06:59 06:59 Intake Total 2747.2 4008.2 346 Output Total 1800 940 160 Balance 947.2 3068.2 186 Weight 115 kg 115 kg General appearance: PRESENT: no acute distress, morbidly obese, well-developed, well-nourished Head exam: PRESENT: atraumatic, normocephalic Eye exam: PRESENT: conjunctiva pink, EOMI, PERRLA. ABSENT: scleral icterus Mouth exam: PRESENT: moist, tongue midline Teeth exam: PRESENT: dental caries, poor dentation Respiratory exam: PRESENT: clear to auscultation winter, symmetrical, unlabored. ABSENT: rales, rhonchi, wheezes Cardiovascular exam: PRESENT: RRR, +S1, +S2. ABSENT: diastolic murmur, rubs, systolic murmur Vascular exam: PRESENT: normal capillary refill GI/Abdominal exam: PRESENT: normal bowel sounds, soft, tenderness. ABSENT: distended, guarding, mass, organolmegaly, rebound Rectal exam: PRESENT: deferred Extremities exam: PRESENT: full ROM. ABSENT: calf tenderness, clubbing, pedal edema Musculoskeletal exam: PRESENT: ambulatory Neurological exam: PRESENT: alert, awake, oriented to person, oriented to place, oriented to time, oriented to situation, CN II-XII grossly intact. ABSENT: motor sensory deficit Psychiatric exam: PRESENT: appropriate affect, normal mood. ABSENT: homicidal ideation, suicidal ideation Skin exam: PRESENT: dry, intact, warm. ABSENT: cyanosis, rash Results Laboratory Results: 05/18/20 13:45 05/18/20 05:35 05/18/20 05/18/20 05/18/20 05:35 05:35 05:35 WBC 25.3 H RBC 3.41 L Hgb 7.8 L Hct 25.3 L MCV 74 L MCH 22.8 L MCHC 30.7 L RDW 28.2 H Plt Count 170 Sodium 134.7 L Potassium 3.3 L Chloride 108 H Carbon Dioxide 22 Anion Gap 5 BUN 7 Creatinine 0.49 L Est GFR ( Amer) > 60 Glucose 70 L Calcium 7.8 L Total Bilirubin 2.7 H AST 96 H Alkaline Phosphatase 175 H Total Protein 4.7 L Albumin 1.8 L Vitamin B12 > 1000.0 H TSH 2.44 05/18/20 13:45 WBC 29.8 H RBC 3.72 Hgb 8.4 L Hct 27.8 L MCV 75 L MCH 22.6 L MCHC 30.2 L RDW 28.1 H Plt Count 179 Sodium Potassium Chloride Carbon Dioxide Anion Gap BUN Creatinine Est GFR ( Amer) Glucose Calcium Total Bilirubin AST Alkaline Phosphatase Total Protein Albumin Vitamin B12 TSH 05/14/20 05/15/20 15:18 06:45 Troponin I < 0.012 < 0.012 Impressions: Abdomen Ultrasound 05/07/20 04:47 IMPRESSION: 1. Dilation of the common bile duct again identified measuring 1.2 cm. 2. Hepatic steatosis and hepatomegaly. 3. Prior cholecystectomy. PICC Line Insertion 05/14/20 00:00 IMPRESSION: SUCCESSFUL PLACEMENT OF A 5 FR DUAL LUMEN 42 CM PICC IN THE LEFT BASILIC VEIN. Venous Doppler Study 05/16/20 00:00 IMPRESSION: NO EVIDENCE DVT OR SVT IN EITHER LEG. Assessment and Plan - Diagnosis (1) Leukocytosis Is this a current diagnosis for this admission?: Yes Plan: Slight upward trend today; 13.2-> 30.2-> 22.5-> 25.8-> 29 Patient remains afebrile and nontoxic in appearance Importance of mobility reinforced with patient OOB 3 times daily; ambulate 3-4 times daily IS every hour Antibiotics per surgical services. Continue IV Zosyn. Continue IV metronidazole. Unasyn is discontinued. (2) Chest pain Qualifiers: Chest pain type: unspecified Qualified Code(s): R07.9 - Chest pain, unspecified Is this a current diagnosis for this admission?: Yes Plan: Resolved. Atypical chest discomfort. Low suspicion for ACS event. Previously reported pain is associated with lying supine and p.o. dairy intake. Strong component of anxiety. May also be related to the patient's recent abdominal surgery; lipase remains elevated at 436 Troponin x3 negative EKG are reassuring. Lipase trending down Continue to monitor on continuous cardiac telemetry. Patient declined trial of GI cocktail and SL Nitro. She is encouraged to change positions, ambulate, and utilize incentive spirometry. Antiemetics and analgesics as needed. (3) Chronic iron deficiency anemia Is this a current diagnosis for this admission?: Yes Plan: Patient received 300 mg dose of iron sucrose on 05/09/2020 Patient has received total of 4 units PRBCs during current hospitalization Transition to oral iron once cleared by surgery Outpatient PCP follow-up. (4) Biliary stricture Is this a current diagnosis for this admission?: Yes Plan: Patient s/p exploratory laparotomy with ventral hernia repair, choledochoduodenoscopy, and liver biopsy on 05/09/2020 Continues to have significant output via ROSALVA drain (likely ascites) Surgical management per surgical service LFTs and lipase continue to improve. (5) Elevated lipase Is this a current diagnosis for this admission?: Yes Plan: Lipase 280-> 439-> 306 Diet advanced per surgery Primary management per Dr. Hubbard IV fluids discontinued Encourage p.o. fluids. Analgesics and antiemetics as needed. (6) Hyperbilirubinemia Is this a current diagnosis for this admission?: Yes Plan: Overall, trending down. No jaundice or icterus noted on exam Primary management per surgery. (7) Obesity (BMI 30.0-34.9) Is this a current diagnosis for this admission?: Yes Plan: BMI 38.5 Strongly encourage dietary compliance and lifestyle modification. (8) Heme positive stool Is this a current diagnosis for this admission?: Yes Plan: It is unclear how much of patient's anemia was due to GI loss, surgical losses, or hemodilution Iron and transfusion as noted above No liana blood per rectum, hematochezia, or melena noted. Pantoprazole 40 mg daily Recommend outpatient endoscopy (9) H/O gastric bypass Is this a current diagnosis for this admission?: Yes Plan: Discussed with Dr. Hubbard today. Will assess for vitamin deficiencies. B12 915 Folate 3.47 Vitamin D low; start Vit D3 1000u daily We will also send out for zinc, copper. These labs will not return for several days. Dr. Hubbard reports that he will review send out labs at outpatient follow-up. (10) Hypokalemia Is this a current diagnosis for this admission?: Yes Plan: Resolved Continue to monitor Replete PRN (11) KEERTHI (acute kidney injury) Is this a current diagnosis for this admission?: Yes Plan: Resolved. Continue gentle IV fluids. Encourage p.o. fluids; she is now been advanced to clear liquid diet. Continue to avoid nephrotoxins Follow-up chemistry. (12) Constipation Is this a current diagnosis for this admission?: Yes Plan: Improved; small/hard stool yesterday. Aggressive bowel regiment; Colace twice daily, MiraLAX daily, milk of mag nightly if she has not had a bowel movement within 24 hours. Patient has declined both Dulcolax suppository and fleets enema. She is encouraged to drink water and to ambulate 3-4 times daily in the hallway. We will discontinue IV morphine due to concern about worsening constipation and this, in fact, is likely causing her to have worsened and persistent abdominal discomfort. (13) Anemia Qualifiers: Anemia type: iron deficiency Iron deficiency anemia type: unspecified iron deficiency Qualified Code(s): D50.9 - Iron deficiency anemia, unspecified Is this a current diagnosis for this admission?: Yes Plan: Hgb 6.6-> 12.4 (s/p 4 units PRBC) -> 7.8-> 8.4 No evidence of active bleeding. Continue to monitor. Supplemental iron as above. - Time Time Spent with patient: 15-24 minutes Medications reviewed and adjusted accordingly: Yes Anticipated discharge: Home Within: within 48 hours
[2020-05-18] MEDS: METOPROLOL TARTRATE 25 MG TABLET PO SCH (21:21)
[2020-05-19] MEDS: PIPERACILLIN SODIUM/TAZOBACTAM 3.375 GM in NORMAL SALINE 100 ML IV SCH ×4 (00:43→17:08)
[2020-05-19] MEDS: METRONIDAZOLE 500 MG/NS RTU 500 MG/100 ML RTUPB IV SCH ×2 (03:10→09:07)
[2020-05-19] MEDS: PANTOPRAZOLE SODIUM 40 MG TABLET.DR PO SCH (05:54)
[2020-05-19] MEDS: TRAMADOL HCL 50 MG TABLET PO PRN ×2 (07:22→17:25)
[2020-05-19] MEDS: ONDANSETRON HCL INJ/PF 4 MG/2 ML SDV IV PRN (07:22)
[2020-05-19 08:24] LABS: HEMATOCRIT 28.1 % (36.0-47.0); HEMOGLOBIN 8.4 g/dL (12.0-15.5); MEAN CORPUSCULAR HEMOGLOBIN 22.8 pg (27.0-33.4); MEAN CORPUSCULAR VOLUME 76 fl (80-97); PLATELET COUNT 194 10^3/uL (150-450); RED BLOOD COUNT 3.69 10^6/uL (3.72-5.28); RED CELL DISTRIBUTION WIDTH 28.5 % (11.5-14.0)
[2020-05-19 08:51] LABS: WHITE BLOOD COUNT 30.6 10^3/uL (4.0-10.5)
[2020-05-19] MEDS: LIDOCAINE 5% (700 MG) TRANSDERMAL ADH..PATCH TP SCH (09:06)
[2020-05-19] MEDS: CYANOCOBALAMIN (VITAMIN B-12) INJ 1000 MCG/1 ML VIAL IM SCH (09:06)
[2020-05-19] MEDS: DOCUSATE SODIUM 100 MG CAPSULE PO SCH ×2 (09:07→17:08)
[2020-05-19] MEDS: METOPROLOL TARTRATE 25 MG TABLET PO SCH ×2 (09:08→21:11)
[2020-05-19] MEDS: CHOLECALCIFEROL (D3) 1,000 UNIT (25 MCG) TABLET PO SCH (09:08)
[2020-05-19] MEDS: POLYETHYLENE GLYCOL 3350 POWDER 17 GM/1 PACKET PO SCH (09:08)
[2020-05-19] MEDS: NORMAL SALINE 10 ML SDV (AFTER EACH USE) IV PRN (09:09)
[2020-05-19] MEDS: NORMAL SALINE 10 ML SDV (SCHEDULED) IV SCH ×2 (09:09→21:11)
[2020-05-19] MEDS: THIAMINE HCL 100 MG, FOLIC ACID 1 MG in NORMAL SALINE 250 ML IV SCH (09:10)
[2020-05-19] MEDS ORDERED: ALTEPLASE INJ 2 MG VIAL (CATH CLEARANCE) IV ONE ×2 (10:30→15:00)
--- NOTE | 2020-05-19 13:12 | PDOC PROGRESS REPORT ---
Subjective Progress Note for:: 05/19/20 Subjective:: The patient was seen on morning rounds. She is sitting up to the recliner, comfortably, on room air. She reports that she is feeling much better today. Tramadol and Lidoderm patches have been adequate for controlling her discomfort. Reports continued BLE edema w/ tenderness when ambulating. Reports good appetite; requests to advance diet. Otherwise, she denies fever, chills, chest pain, palpitations, dyspnea, orthopnea, cough, abdominal pain, nausea, vomiting and diarrhea. She has no other questions or concerns at this time. No concerns per nursing. Reason For Visit: BILIARY OBSTRUCTION S/P SURGERY Physical Exam Vital Signs: Temp Pulse Resp BP Pulse Ox 98.6 F 101 H 12 103/62 100 05/19/20 08:40 05/19/20 08:40 05/19/20 08:40 05/19/20 08:40 05/19/20 08:40 Intake & Output 05/18/20 05/19/20 05/20/20 06:59 06:59 06:59 Intake Total 4008.2 2685.2 1252 Output Total 940 560 80 Balance 3068.2 2125.2 1172 Weight 115 kg 125.7 kg General appearance: PRESENT: no acute distress, morbidly obese, well-developed, well-nourished Head exam: PRESENT: atraumatic, normocephalic Eye exam: PRESENT: conjunctiva pink, EOMI, PERRLA. ABSENT: scleral icterus Mouth exam: PRESENT: moist, tongue midline Teeth exam: PRESENT: dental caries, poor dentation Respiratory exam: PRESENT: clear to auscultation winter, symmetrical, unlabored. ABSENT: rales, rhonchi, wheezes Cardiovascular exam: PRESENT: RRR. ABSENT: diastolic murmur, rubs, systolic murmur Pulses: PRESENT: normal dorsalis pedis pul Vascular exam: PRESENT: normal capillary refill GI/Abdominal exam: PRESENT: normal bowel sounds, soft, other - Kolby drain; leakage around drain of clear/yellow fluid saturating dressing. ABSENT: distended, guarding, mass, organolmegaly, rebound, tenderness Rectal exam: PRESENT: deferred Extremities exam: PRESENT: full ROM. ABSENT: calf tenderness, clubbing, pedal edema Musculoskeletal exam: PRESENT: ambulatory Neurological exam: PRESENT: alert, awake, oriented to person, oriented to place, oriented to time, oriented to situation, CN II-XII grossly intact. ABSENT: motor sensory deficit Psychiatric exam: PRESENT: appropriate affect, normal mood. ABSENT: homicidal ideation, suicidal ideation Skin exam: PRESENT: dry, warm. ABSENT: cyanosis, rash Results Laboratory Results: 05/19/20 07:48 05/18/20 05:35 05/18/20 05/19/20 13:45 07:48 WBC 29.8 H 30.6 H* RBC 3.72 3.69 L Hgb 8.4 L 8.4 L Hct 27.8 L 28.1 L MCV 75 L 76 L MCH 22.6 L 22.8 L MCHC 30.2 L 30.0 L RDW 28.1 H 28.5 H Plt Count 179 194 05/14/20 05/15/20 15:18 06:45 Troponin I < 0.012 < 0.012 Impressions: Abdomen Ultrasound 05/07/20 04:47 IMPRESSION: 1. Dilation of the common bile duct again identified measuring 1.2 cm. 2. Hepatic steatosis and hepatomegaly. 3. Prior cholecystectomy. PICC Line Insertion 05/14/20 00:00 IMPRESSION: SUCCESSFUL PLACEMENT OF A 5 FR DUAL LUMEN 42 CM PICC IN THE LEFT BASILIC VEIN. Venous Doppler Study 05/16/20 00:00 IMPRESSION: NO EVIDENCE DVT OR SVT IN EITHER LEG. Assessment and Plan - Diagnosis (1) Leukocytosis Is this a current diagnosis for this admission?: Yes Plan: Continued upward trend; 13.2-> 30.2-> 22.5-> 25.8-> 29-> 30.6 Patient remains afebrile and nontoxic in appearance ? r/t antibiotic therapy Importance of mobility reinforced with patient OOB 3 times daily; ambulate 3-4 times daily IS every hour Will check UA w/ reflex and blood cultures. Antibiotics per surgical services. Continue IV Zosyn. Last dose IV metronidazole today. Unasyn is discontinued. (2) Chest pain Qualifiers: Chest pain type: unspecified Qualified Code(s): R07.9 - Chest pain, unspecified Is this a current diagnosis for this admission?: Yes Plan: Resolved. Atypical chest discomfort. Low suspicion for ACS event. Previously reported pain is associated with lying supine and p.o. dairy intake. Strong component of anxiety. Troponin x3 negative EKG are reassuring. Lipase trending down Continue to monitor on continuous cardiac telemetry. Patient declined trial of GI cocktail and SL Nitro. She is encouraged to change positions, ambulate, and utilize incentive spirometry. Antiemetics and analgesics as needed. (3) Chronic iron deficiency anemia Is this a current diagnosis for this admission?: Yes Plan: Patient received 300 mg dose of iron sucrose on 05/09/2020 Patient has received total of 4 units PRBCs during current hospitalization Start ferrous sulfate supplementation Outpatient PCP follow-up. (4) Biliary stricture Is this a current diagnosis for this admission?: Yes Plan: Patient s/p exploratory laparotomy with ventral hernia repair, cho ledochoduodenoscopy, and liver biopsy on 05/09/2020 Continues to have significant output via KOLBY drain (likely ascites) Surgical management per surgical service LFTs and lipase continue to improve. (5) Elevated lipase Is this a current diagnosis for this admission?: Yes Plan: Lipase 280-> 439-> 306 Diet advanced per surgery Primary management per Dr. Hubbard IV fluids discontinued Encourage p.o. fluids. Analgesics and antiemetics as needed. (6) Hyperbilirubinemia Is this a current diagnosis for this admission?: Yes Plan: Overall, trending down. No jaundice or icterus noted on exam Urine now clear/light yellow Primary management per surgery. (7) Obesity (BMI 30.0-34.9) Is this a current diagnosis for this admission?: Yes Plan: BMI 38.5 Strongly encourage dietary compliance and lifestyle modification. (8) Heme positive stool Is this a current diagnosis for this admission?: Yes Plan: It is unclear how much of patient's anemia was due to GI loss, surgical losses, or hemodilution Iron and transfusion as noted above No liana blood per rectum, hematochezia, or melena noted. Pantoprazole 40 mg daily Recommend outpatient endoscopy (9) H/O gastric bypass Is this a current diagnosis for this admission?: Yes Plan: Discussed with Dr. Hubbard today. Will assess for vitamin deficiencies. B12 915 Folate 3.47 Vitamin D low Zinc and Copper pending Check mag w/ am lab work. Continue Vit D3 1000u daily Start Calcium supplementation Start ferrous sulfate Start folic acid Continue Thiamine daily Continue B12 daily (10) Hypokalemia Is this a current diagnosis for this admission?: Yes Plan: Recurrent Oral replacement today. May benefit from spiroinolactone for continued management of hypokalemia and edema. Continue to monitor (11) KEERTHI (acute kidney injury) Is this a current diagnosis for this admission?: Yes Plan: Resolved. Encourage p.o. fluids Continue to avoid nephrotoxins Follow-up chemistry. (12) Constipation Is this a current diagnosis for this admission?: Yes Plan: Resolved; multiple bm's Continue bowel regiment; Colace twice daily, MiraLAX daily, milk of mag nightly if she has not had a bowel movement within 24 hours. She is encouraged to drink water and to ambulate 3-4 times daily in the hallway. (13) Anemia Qualifiers: Anemia type: iron deficiency Iron deficiency anemia type: unspecified iron deficiency Qualified Code(s): D50.9 - Iron deficiency anemia, unspecified Is this a current diagnosis for this admission?: Yes Plan: Hgb 6.6-> 12.4 (s/p 4 units PRBC) -> 7.8-> 8.4-> 8.4 No evidence of active bleeding. Continue to monitor. Supplemental iron as above. (14) Edema Qualifiers: Edema type: due to malnutrition Is this a current diagnosis for this admission?: Yes Plan: Related to poor nutrition and hypoalbuminemia Advancing diet today. Furosemide x 1 Consider combination of p.o. 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 Encourage ambulation - Time Time Spent with patient: 35 or more minutes Medications reviewed and adjusted accordingly: Yes Anticipated discharge: Home Within: Other - pending surgical clearance
[2020-05-19] MEDS ORDERED: FUROSEMIDE INJ/PF 20 MG/2 ML SDV IV ONE (13:30)
[2020-05-19 15:12] LABS: BLOOD UREA NITROGEN 8 mg/dL (7-20); CALCIUM 7.7 mg/dL (8.4-10.2); GLUCOSE 100 mg/dL (75-110); POTASSIUM 3.7 mmol/L (3.6-5.0)
[2020-05-19 15:18] LABS: CARBON DIOXIDE 21 mmol/L (22-30); CHLORIDE 107 mmol/L (98-107)
[2020-05-19 15:22] LABS: ANION GAP 4 (5-19)
[2020-05-19 16:14] LABS: APPEARANCE,URINE SLIGHTLY-CLOUDY; BILIRUBIN,URINE NEGATIVE (NEGATIVE); COLOR,URINE YELLOW; GLUCOSE, URINE NEGATIVE (NEGATIVE); KETONES,URINE NEGATIVE (NEGATIVE); PROTEIN,URINE NEGATIVE (NEGATIVE); URINE SPECIFIC GRAVITY 1.011; UROBILINOGEN,URINE NEGATIVE mg/dL (<2.0)
[2020-05-19] MEDS: CALCIUM CARBONATE 600 MG TABLET PO SCH (17:08)
[2020-05-20] MEDS: PIPERACILLIN SODIUM/TAZOBACTAM 3.375 GM in NORMAL SALINE 100 ML IV SCH ×2 (00:21→05:31)
[2020-05-20] MEDS: ONDANSETRON HCL INJ/PF 4 MG/2 ML SDV IV PRN ×3 (03:02→21:42)
[2020-05-20] MEDS: TRAMADOL HCL 50 MG TABLET PO PRN ×2 (03:02→21:42)
[2020-05-20] MEDS: PANTOPRAZOLE SODIUM 40 MG TABLET.DR PO SCH (05:31)
[2020-05-20] MEDS ORDERED: ALTEPLASE INJ 2 MG VIAL (CATH CLEARANCE) INJ ONE (06:45)
[2020-05-20 07:05] LABS: HEMATOCRIT 27.5 % (36.0-47.0); HEMOGLOBIN 8.4 g/dL (12.0-15.5); MEAN CORPUSCULAR HEMOGLOBIN 22.8 pg (27.0-33.4); MEAN CORPUSCULAR HGB CONC 30.5 g/dL (32.0-36.0); MEAN CORPUSCULAR VOLUME 75 fl (80-97); PLATELET COUNT 252 10^3/uL (150-450); RED BLOOD COUNT 3.68 10^6/uL (3.72-5.28); RED CELL DISTRIBUTION WIDTH 28.8 % (11.5-14.0)
--- NOTE | 2020-05-20 07:46 | PDOC PROGRESS REPORT ---
Subjective Progress Note for:: 05/20/20 Subjective:: feels ok, barbara reg diet passing stool afeb vss Reason For Visit: BILIARY OBSTRUCTION S/P SURGERY Physical Exam Vital Signs: Temp Pulse Resp BP Pulse Ox 98.2 F 86 17 119/68 99 05/19/20 23:27 05/20/20 02:00 05/19/20 23:27 05/19/20 23:27 05/19/20 23:27 Intake & Output 05/19/20 05/20/20 05/21/20 06:59 06:59 06:59 Intake Total 2685.2 3023.2 Output Total 560 1110 Balance 2125.2 1913.2 Weight 125.7 kg 122.6 kg General appearance: PRESENT: no acute distress Head exam: PRESENT: normocephalic Eye exam: PRESENT: EOMI Mouth exam: PRESENT: moist Teeth exam: PRESENT: edentulous, poor dentation Neck exam: PRESENT: full ROM Respiratory exam: PRESENT: clear to auscultation winter Cardiovascular exam: PRESENT: RRR Pulses: PRESENT: normal femoral pulses, normal dorsalis pedis pul Vascular exam: PRESENT: normal capillary refill Breast: PRESENT: Normal GI/Abdominal exam: PRESENT: soft Rectal exam: PRESENT: deferred Extremities exam: PRESENT: full ROM, +2 edema Musculoskeletal exam: PRESENT: full ROM Neurological exam: PRESENT: awake, oriented to person, oriented to place, oriented to time, oriented to situation Psychiatric exam: PRESENT: appropriate affect Skin exam: PRESENT: dry Results Laboratory Results: 05/19/20 14:40 05/19/20 05/19/20 05/19/20 07:48 14:40 15:40 WBC 30.6 H* RBC 3.69 L Hgb 8.4 L Hct 28.1 L MCV 76 L MCH 22.8 L MCHC 30.0 L RDW 28.5 H Plt Count 194 Sodium 131.7 L Potassium 3.7 Chloride 107 Carbon Dioxide 21 L Anion Gap 4 L BUN 8 Creatinine 0.61 Est GFR ( Amer) > 60 Glucose 100 Calcium 7.7 L Magnesium Urine Color YELLOW Urine Appearance SLIGHTLY-CLOUDY Urine pH 5.0 Ur Specific [place] 1.011 Urine Protein NEGATIVE Urine Glucose (UA) NEGATIVE Urine Ketones NEGATIVE Urine Blood MODERATE H Urine RBC (Auto) 18 05/20/20 06:35 WBC RBC Hgb Hct MCV MCH MCHC RDW Plt Count Sodium Potassium Chloride Carbon Dioxide Anion Gap BUN Creatinine Est GFR ( Amer) Glucose Calcium Magnesium 1.4 L Urine Color Urine Appearance Urine pH Ur Specific [place] Urine Protein Urine Glucose (UA) Urine Ketones Urine Blood Urine RBC (Auto) 05/14/20 05/15/20 15:18 06:45 Troponin I < 0.012 < 0.012 Impressions: Abdomen Ultrasound 05/07/20 04:47 IMPRESSION: 1. Dilation of the common bile duct again identified measuring 1.2 cm. 2. Hepatic steatosis and hepatomegaly. 3. Prior cholecystectomy. PICC Line Insertion 05/14/20 00:00 IMPRESSION: SUCCESSFUL PLACEMENT OF A 5 FR DUAL LUMEN 42 CM PICC IN THE LEFT BA SILIC VEIN. Venous Doppler Study 05/16/20 00:00 IMPRESSION: NO EVIDENCE DVT OR SVT IN EITHER LEG. Assessment & Plan - Plan Summary Plan Summary: remains afeb vss comfortable return of bowel function lfts correctiong to normal remains edematous, likely due to hypoalbumin wbc remains elevated, 30k yesterday plan will dc abx start lasix/albumin infusion ct abd/pelvis dopplers last wkwere neg.
[2020-05-20] MEDS: LIDOCAINE 5% (700 MG) TRANSDERMAL ADH..PATCH TP SCH (09:13)
[2020-05-20] MEDS: NORMAL SALINE 10 ML SDV (SCHEDULED) IV SCH ×2 (09:16→21:43)
[2020-05-20] MEDS: FOLIC ACID 1 MG TABLET PO SCH (09:16)
[2020-05-20] MEDS: CALCIUM CARBONATE 600 MG TABLET PO SCH ×3 (09:16→17:18)
[2020-05-20] MEDS: METOPROLOL TARTRATE 25 MG TABLET PO SCH ×2 (09:16→21:41)
[2020-05-20] MEDS: FERROUS SULFATE 325 MG TABLET PO SCH (09:16)
[2020-05-20] MEDS: CYANOCOBALAMIN (VITAMIN B-12) INJ 1000 MCG/1 ML VIAL IM SCH (09:18)
[2020-05-20] MEDS: CHOLECALCIFEROL (D3) 1,000 UNIT (25 MCG) TABLET PO SCH (09:18)
[2020-05-20] MEDS: POLYETHYLENE GLYCOL 3350 POWDER 17 GM/1 PACKET PO SCH (09:47)
[2020-05-20] MEDS: DOCUSATE SODIUM 100 MG CAPSULE PO SCH ×2 (09:47→17:12)
[2020-05-20] MEDS: ALBUMIN HUMAN 25 GM/100 ML RTUINJ IV SCH ×2 (10:13→21:51)
--- NOTE | 2020-05-20 11:50 | RADIOLOGY REPORT (SQ) ---
EXAM DESCRIPTION: CT ABD/PELVIS WITH IV ORAL IMAGES COMPLETED DATE/TIME: 05/20/2020 11:14 am REASON FOR STUDY: r/o abscess COMPARISON: 04/30/2020 TECHNIQUE: CT scan of the abdomen and pelvis performed using helical scanning technique with dynamic intravenous contrast injection. No oral contrast. Images reviewed with lung, soft tissue, and bone windows. Reconstructed coronal and sagittal MPR images reviewed. Delayed images for evaluation of the urinary system also acquired. All images stored on PACS. All CT scanners at this facility use dose modulation, iterative reconstruction, and/or weight based d osing when appropriate to reduce radiation dose to as low as reasonably achievable (ALARA). [facility]: Dose Right [facility]: CareDose [facility]: Dose Right [facility]: Teradose 4D [facility]: [employer]ft CONTRAST TYPE AND DOSE: contrast/concentration: Isovue 350.00 mmol/ml; Total Contrast Delivered: 100 .0 ml; Total Saline Delivered: 68.4 ml RENAL FUNCTION: BUN 8, creatinine 0.61 RADIATION DOSE: CT Rad equipment meets quality standard of care and radiation dose reduction techniq ues were employed. CTDIvol: NaN - NaN mGy. DLP: 0 mGy-cm.. LIMITATIONS: None. FINDINGS: LOWER CHEST: There are small pleural effusions and basilar atelectasis left greater than r ight. LIVER: There is a small amount of perihepatic fluid. There is pneumobilia. Hepatomegaly. The liver measures just under 25 cm in cranial caudal dimensions. SPLEEN: Normal size. No focal lesions. PANCREAS: No masses. No significant calcifications. No adjacent inflammation or peripancreatic fluid collections. Pancreatic duct not dilated. GALLBLADDER: Surgically absent. There is an external drain lying in the gallbladder fossa. There is a 3.4 x 5.0 cm fluid collection anterolateral to the pancreas inferior to the gallbladder fossa. Th is is nonspecific and could represent simple fluid, seroma or abscess. No focal air pockets. There is a pocket of free air anterior to the duodenum C-loop. Likely postsurgical in nature. ADRENAL GLANDS: No significant masses or asymmetry. RIGHT KIDNEY AND URETER: No solid masses. No significant calcifications. No hydronephrosis or hyd roureter. LEFT KIDNEY AND URETER: No solid masses. No significant calcifications. No hydronephrosis or hydr oureter. AORTA AND VESSELS: No aneurysm. No dissection. Renal arteries, SMA, celiac without stenosis. RETROPERITONEUM: No retroperitoneal adenopathy, hemorrhage or masses. BOWEL AND PERITONEAL CAVITY: Small amount of ascites throughout the abdomen. Colon is decompressed. No small bowel distention. APPENDIX: Not visualized. PELVIS: Small amount of free fluid the pelvis. Fibroid uterus. ABDOMINAL WALL: Diffuse subcutaneous edema consistent with 3rd spacing. BONES: No significant or acute findings. OTHER: No other significant finding. IMPRESSION: External drain remains in place. There is a 3.4 x 5.0 cm fluid collection just medial t o the tip of the drain. This is nonspecific and could represent simple postoperative fluid versus se светлана. Abscess cannot entirely be excluded. There is small volume ascites. Pneumobilia. This is expected. Small amount of free air collected along the medial margin of the ri ght lobe of liver most likely post surgical in nature or possibly introduced through the percutaneous drain. Small pleural effusions and basilar atelectasis left greater than right. Diffuse subcutaneous edema. COMMENT: This report was called to ROXANNE MAC MD at11:44 on 05/20/2020. TECHNICAL DOCUMENTATION: JOB ID: [id number] Quality ID # [id number]: Final reports with documentation of one or more dose reduction techniques (e.g., Au tomated exposure control, adjustment of the mA and/or kV according to patient size, use of iterative reconstruction technique) 2010 [employer]- All Rights Reserved Reading location - IP/workstation name: [email or web address]
[2020-05-20] MEDS: FUROSEMIDE INJ/PF 40 MG/4 ML SDV IV SCH ×2 (13:51→23:52)
--- NOTE | 2020-05-20 13:54 | PDOC PROGRESS REPORT ---
Subjective Progress Note for:: 05/20/20 Subjective:: The patient was seen on afternoon rounds. She is sitting up to the recliner, comfortably, on room air. Complains of increased BLE edema w/ tenderness when ambulating. Still not wearing TEDS or keeping feet elevated. Reports profuse clear/yellow drainage around her ROSALVA drain requiring frequent dressing changes. She denies abdominal discomfort. Tolerating her soft/low residue diet well. Otherwise, she denies fever, chills, chest pain, palpitations, dyspnea, ort hopnea, cough, abdominal pain, nausea, vomiting and diarrhea. She has no other questions or concerns at this time. No concerns per nursing. Reason For Visit: BILIARY OBSTRUCTION S/P SURGERY Physical Exam Vital Signs: Temp Pulse Resp BP Pulse Ox 97.3 F 100 16 114/76 100 05/20/20 08:10 05/20/20 08:10 05/20/20 08:10 05/20/20 08:10 05/20/20 08:10 Intake & Output 05/19/20 05/20/20 05/21/20 06:59 06:59 06:59 Intake Total 2685.2 3023.2 Output Total 560 1110 120 Balance 2125.2 1913.2 -120 Weight 125.7 kg 122.6 kg General appearance: PRESENT: no acute distress, morbidly obese, well-developed, well-nourished Head exam: PRESENT: atraumatic, normocephalic Eye exam: PRESENT: conjunctiva pink, EOMI, PERRLA. ABSENT: scleral icterus Mouth exam: PRESENT: moist, tongue midline Teeth exam: PRESENT: dental caries, poor dentation Respiratory exam: PRESENT: clear to auscultation winter, symmetrical, unlabored. ABSENT: rales, rhonchi, wheezes Cardiovascular exam: PRESENT: RRR. ABSENT: diastolic murmur, rubs, systolic murmur Vascular exam: PRESENT: normal capillary refill GI/Abdominal exam: PRESENT: normal bowel sounds, soft, other - ROSALVA drain. ABSENT: distended, guarding, mass, organolmegaly, rebound, tenderness Rectal exam: PRESENT: deferred Extremities exam: PRESENT: full ROM, pedal edema, +2 edema - BLE. ABSENT: calf tenderness, clubbing Musculoskeletal exam: PRESENT: ambulatory Neurological exam: PRESENT: alert, awake, oriented to person, oriented to place, oriented to time, oriented to situation, CN II-XII grossly intact. ABSENT: motor sensory deficit Psychiatric exam: PRESENT: normal mood. ABSENT: homicidal ideation, suicidal ideation Skin exam: PRESENT: dry, intact, warm. ABSENT: cyanosis, rash Results Laboratory Results: 05/20/20 06:35 05/19/20 14:40 05/19/20 05/19/20 05/20/20 14:40 15:40 06:35 WBC 31.0 H* RBC 3.68 L Hgb 8.4 L Hct 27.5 L MCV 75 L MCH 22.8 L MCHC 30.5 L RDW 28.8 H Plt Count 252 Sodium 131.7 L Potassium 3.7 Chloride 107 Carbon Dioxide 21 L Anion Gap 4 L BUN 8 Creatinine 0.61 Est GFR ( Amer) > 60 Glucose 100 Calcium 7.7 L Magnesium Urine Color YELLOW Urine Appearance SLIGHTLY-CLOUDY Urine pH 5.0 Ur Specific [place] 1.011 Urine Protein NEGATIVE Urine Glucose (UA) NEGATIVE Urine Ketones NEGATIVE Urine Blood MODERATE H Urine RBC (Auto) 18 05/20/20 06:35 WBC RBC Hgb Hct MCV MCH MCHC RDW Plt Count Sodium Potassium Chloride Carbon Dioxide Anion Gap BUN Creatinine Est GFR ( Amer) Glucose Calcium Magnesium 1.4 L Urine Color Urine Appearance Urine pH Ur Specific [place] Urine Protein Urine Glucose (UA) Urine Ketones Urine Blood Urine RBC (Auto) 05/14/20 05/15/20 15:18 06:45 Troponin I < 0.012 < 0.012 Impressions: Abdomen Ultrasound 05/07/20 04:47 IMPRESSION: 1. Dilation of the common bile duct again identified measuring 1.2 cm. 2. Hepatic steatosis and hepatomegaly. 3. Prior cholecystectomy. PICC Line Insertion 05/14/20 00:00 IMPRESSION: SUCCESSFUL PLACEMENT OF A 5 FR DUAL LUMEN 42 CM PICC IN THE LEFT BASILIC VEIN. Venous Doppler Study 05/16/20 00:00 IMPRESSION: NO EVIDENCE DVT OR SVT IN EITHER LEG. Abdomen/Pelvis CT 05/20/20 00:00 IMPRESSION: External drain remains in place. There is a 3.4 x 5.0 cm fluid collection just medial to the tip of the drain. This is nonspecific and could represent simple postoperative fluid versus seroma. Abscess cannot entirely be excluded. There is small volume ascites. Pneumobilia. This is expected. Small amount of free air collected along the medial margin of the right lobe of liver most likely post surgical in nature or possibly introduced through the percutaneous drain. Small pleural effusions and basilar atelectasis left greater than right. Diffuse subcutaneous edema. Assessment and Plan - Diagnosis (1) Leukocytosis Is this a current diagnosis for this admission?: Yes Plan: Continued upward trend; 13.2-> 30.2-> 22.5-> 25.8-> 29-> 30.6-> 31.0 Patient remains afebrile and nontoxic in appearance ? r/t antibiotic therapy Blood cultures pending. Urinalysis negative for UTI; urine culture shows gram-positive cocci in chains CT abdomen pelvis pending. Importance of mobility reinforced with patient OOB 3 times daily; ambulate 3-4 times daily IS every hour Antibiotics per surgical services. IV Zosyn discontinued 05/20 IV metronidazole discontinued 05/19 (2) Chest pain Qualifiers: Chest pain type: unspecified Qualified Code(s): R07.9 - Chest pain, unspecified Is this a current diagnosis for this admission?: Yes Plan: Resolved. Atypical chest discomfort. Low suspicion for ACS event. Previously reported pain is associated with lying supine and p.o. dairy intake. Strong component of anxiety. Troponin x3 negative EKG are reassuring. Lipase trending down Continue to monitor on continuous cardiac telemetry. Patient declined trial of GI cocktail and SL Nitro. She is encouraged to change positions, ambulate, and utilize incentive spirometry. Antiemetics and analgesics as needed. (3) Chronic iron deficiency anemia Is this a current diagnosis for this admission?: Yes Plan: Patient received 300 mg dose of iron sucrose on 05/09/2020 Patient has received total of 4 units PRBCs during current hospitalization Start ferrous sulfate supplementation Outpatient PCP follow-up. (4) Biliary stricture Is this a current diagnosis for this admission?: Yes Plan: Patient s/p exploratory laparotomy with ventral hernia repair, choledoc hoduodenoscopy, and liver biopsy on 05/09/2020 Continues to have significant output via ROSALVA drain (likely ascites) Surgical management per surgical service LFTs and lipase continue to improve. (5) Elevated lipase Is this a current diagnosis for this admission?: Yes Plan: Lipase 280-> 439-> 306 Diet advanced per surgery Primary management per Dr. Belzberg IV fluids discontinued Encourage p.o. fluids. Analgesics and antiemetics as needed. (6) Hyperbilirubinemia Is this a current diagnosis for this admission?: Yes Plan: Overall, trending down. No jaundice or icterus noted on exam Urine now clear/light yellow Primary management per surgery. (7) Obesity (BMI 30.0-34.9) Is this a current diagnosis for this admission?: Yes Plan: BMI 38.5 Strongly encourage dietary compliance and lifestyle modification. (8) Heme positive stool Is this a current diagnosis for this admission?: Yes Plan: It is unclear how much of patient's anemia was due to GI loss, surgical losses, or hemodilution Iron and transfusion as noted above No liana blood per rectum, hematochezia, or melena noted. Pantoprazole 40 mg daily Recommend outpatient endoscopy (9) H/O gastric bypass Is this a current diagnosis for this admission?: Yes Plan: Discussed with Dr. Hubbard today. Will assess for vitamin deficiencies. B12 915 Folate 3.47 Vitamin D low Zinc and Copper pending Check mag w/ am lab work. Continue Vit D3 1000u daily Start Calcium supplementation Start ferrous sulfate Start folic acid Continue Thiamine daily Continue B12 daily (10) Hypokalemia Is this a current diagnosis for this admission?: Yes Plan: Recurrent Oral replacement today. May benefit from spiroinolactone for continued management of hypokalemia and edema. Continue to monitor (11) KEERTHI (acute kidney injury) Is this a current diagnosis for this admission?: Yes Plan: Resolved. Encourage p.o. fluids Continue to avoid nephrotoxins Follow-up chemistry. (12) Constipation Is this a current diagnosis for this admission?: Yes Plan: Resolved; multiple bm's Continue bowel regiment; Colace twice daily, MiraLAX daily, milk of mag nightly if she has not had a bowel movement within 24 hours. She is encouraged to drink water and to ambulate 3-4 times daily in the hallway. (13) Anemia Qualifiers: Anemia type: iron deficiency Iron deficiency anemia type: unspecified iron deficiency Qualified Code(s): D50.9 - Iron deficiency anemia, unspecified Is this a current diagnosis for this admission?: Yes Plan: Hgb 6.6-> 12.4 (s/p 4 units PRBC) -> 7.8-> 8.4-> 8.4 No evidence of active bleeding. Continue to monitor. Supplemental iron as above. (14) Edema Qualifiers: Edema type: due to malnutrition Is this a current diagnosis for this admission?: Yes Plan: Related to poor nutrition and hypoalbuminemia Advancing diet today. Per surgery; patient placed on twice daily albumin and furosemide turner machine consulted FRANC cheney. Encourage ambulation (15) Hypomagnesemia Is this a current diagnosis for this admission?: Yes Plan: IV replacement today; periodic follow-up labs. - Time Time Spent with patient: 35 or more minutes Medications reviewed and adjusted accordingly: Yes Anticipated discharge: Home Within: Other
[2020-05-20] MEDS: MAGNESIUM SULFATE/D5W 1 GM/100 ML RTUPB IV SCH ×2 (13:58→15:27)
[2020-05-21] MEDS: PANTOPRAZOLE SODIUM 40 MG TABLET.DR PO SCH (06:20)
[2020-05-21 07:05] LABS: HEMATOCRIT 25.6 % (36.0-47.0); MEAN CORPUSCULAR HEMOGLOBIN 22.9 pg (27.0-33.4); MEAN CORPUSCULAR HGB CONC 30.6 g/dL (32.0-36.0); MEAN CORPUSCULAR VOLUME 75 fl (80-97); PLATELET COUNT 284 10^3/uL (150-450); RED BLOOD COUNT 3.43 10^6/uL (3.72-5.28); RED CELL DISTRIBUTION WIDTH 28.3 % (11.5-14.0); WHITE BLOOD COUNT 29.6 10^3/uL (4.0-10.5)
[2020-05-21 07:32] LABS: HEMOGLOBIN 7.9 g/dL (12.0-15.5)
[2020-05-21 07:32] LABS: ALBUMIN 1.8 g/dL (3.5-5.0); ALKALINE PHOSPHATASE 177 U/L (38-126); ASPARTATE AMINO TRANSFERASE 89 U/L (14-36); BILIRUBIN,TOTAL 1.8 mg/dL (0.2-1.3); BLOOD UREA NITROGEN 10 mg/dL (7-20); CALCIUM 7.7 mg/dL (8.4-10.2); CARBON DIOXIDE 21 mmol/L (22-30); CHLORIDE 107 mmol/L (98-107); GLUCOSE 75 mg/dL (75-110); POTASSIUM 3.6 mmol/L (3.6-5.0); TOTAL PROTEIN 4.9 g/dL (6.3-8.2)
[2020-05-21 07:33] LABS: ANION GAP 4 (5-19)
[2020-05-21 07:34] LABS: ABSOLUTE LYMPHOCYTES# (MANUAL) 1.5 10^3/uL (0.5-4.7); ABSOLUTE MONOCYTES # (MANUAL) 2.1 10^3/uL (0.1-1.4); BASOPHILS % (MANUAL) 1 % (0-2); EOSINOPHILS % (MANUAL) 0 % (0-6); LYMPHOCYTES % (MANUAL) 5 % (13-45); MONOCYTES % (MANUAL) 7 % (3-13); SEGMENTED NEUTROPHILS % (MAN) 87 % (42-78); TOTAL CELLS COUNTED 100
[2020-05-21 07:36] LABS: ANISOCYTOSIS 4+; HYPOCHROMASIA 2+; PAPPENHEIMER BODIES PRESENT; PLATELET COMMENT ADEQUATE; POIKILOCYTOSIS SLIGHT; POLYCHROMASIA SLIGHT; SCHISTOCYTES SLIGHT; TEAR DROP CELLS SLIGHT; TOXIC VACUOLATION PRESENT
[2020-05-21] MEDS: CALCIUM CARBONATE 600 MG TABLET PO SCH (09:47)
[2020-05-21] MEDS: DOCUSATE SODIUM 100 MG CAPSULE PO SCH ×2 (09:48→17:28)
[2020-05-21] MEDS: POLYETHYLENE GLYCOL 3350 POWDER 17 GM/1 PACKET PO SCH (09:48)
[2020-05-21] MEDS: NORMAL SALINE 10 ML SDV (SCHEDULED) IV SCH ×2 (09:49→21:34)
[2020-05-21] MEDS: FOLIC ACID 1 MG TABLET PO SCH (09:49)
[2020-05-21] MEDS: METOPROLOL TARTRATE 25 MG TABLET PO SCH ×2 (09:50→22:40)
[2020-05-21] MEDS: CHOLECALCIFEROL (D3) 1,000 UNIT (25 MCG) TABLET PO SCH (09:50)
[2020-05-21] MEDS: FERROUS SULFATE 325 MG TABLET PO SCH (09:51)
[2020-05-21] MEDS: ALBUMIN HUMAN 25 GM/100 ML RTUINJ IV SCH ×2 (09:51→22:04)
[2020-05-21] MEDS: CYANOCOBALAMIN (VITAMIN B-12) INJ 1000 MCG/1 ML VIAL IM SCH (09:52)
[2020-05-21] MEDS: LIDOCAINE 5% (700 MG) TRANSDERMAL ADH..PATCH TP SCH (09:52)
[2020-05-21] MEDS: LINEZOLID 600 MG/300 ML RTUPB IV SCH ×2 (10:54→21:35)
[2020-05-21] MEDS: ONDANSETRON HCL INJ/PF 4 MG/2 ML SDV IV PRN ×2 (12:13→21:34)
[2020-05-21] MEDS: MAGNESIUM SULFATE/D5W 1 GM/100 ML RTUPB IV SCH ×2 (12:17→12:18)
[2020-05-21] MEDS: FUROSEMIDE INJ/PF 40 MG/4 ML SDV IV SCH (13:03)
--- NOTE | 2020-05-21 13:12 | PDOC PROGRESS REPORT ---
Subjective Progress Note for:: 05/21/20 Subjective:: The patient was seen on morning rounds. She is resting in bed, comfortably, on room air. Frustrated by continued serous fluid leak around ROSALVA drain. She also reports nausea with medications; difficulty with calcium specifically. Otherwise no new questions or concerns today. She denies fever, chills, chest pain, palpitations, dyspnea, orthopnea, cough, abdominal pain, nausea, vomiting and diarrhea. Denies urinary urgency, frequency, and dysuria. No concerns per nursing. Reason For Visit: BILIARY OBSTRUCTION S/P SURGERY Physical Exam Vital Signs: Temp Pulse Resp BP Pulse Ox 97.5 F 95 18 111/68 100 05/21/20 08:06 05/21/20 08:06 05/21/20 08:06 05/21/20 08:06 05/21/20 08:06 Intake & Output 05/20/20 05/21/20 05/22/20 06:59 06:59 06:59 Intake Total 3023.2 780 100 Output Total 1110 840 80 Balance 1913.2 -60 20 Weight 122.6 kg 122.6 kg General appearance: PRESENT: no acute distress, morbidly obese, well-developed, well-nourished Head exam: PRESENT: atraumatic, normocephalic Eye exam: PRESENT: conjunctiva pink, EOMI, PERRLA. ABSENT: scleral icterus Mouth exam: PRESENT: moist, tongue midline Teeth exam: PRESENT: dental caries, poor dentation Respiratory exam: PRESENT: clear to auscultation winter, symmetrical, unlabored. ABSENT: rales, rhonchi, wheezes Cardiovascular exam: PRESENT: RRR. ABSENT: diastolic murmur, rubs, systolic murmur Pulses: PRESENT: normal dorsalis pedis pul Vascular exam: PRESENT: normal capillary refill GI/Abdominal exam: PRESENT: normal bowel sounds, soft, other - ROSALVA drain. ABSENT: distended, guarding, mass, organolmegaly, rebound, tenderness Rectal exam: PRESENT: deferred Extremities exam: PRESENT: full ROM. ABSENT: calf tenderness, clubbing, pedal edema - Resolved, +1 edema, +2 edema Musculoskeletal exam: PRESENT: ambulatory Neurological exam: PRESENT: alert, awake, oriented to person, oriented to place, oriented to time, oriented to situation, CN II-XII grossly intact. ABSENT: motor sensory deficit Psychiatric exam: PRESENT: appropriate affect, normal mood. ABSENT: homicidal ideation, suicidal ideation Skin exam: PRESENT: dry, intact, warm. ABSENT: cyanosis, rash Results Laboratory Results: 05/21/20 06:20 05/21/20 06:50 05/21/20 05/21/20 06:20 06:50 WBC 29.6 H RBC 3.43 L Hgb 7.9 L Hct 25.6 L MCV 75 L MCH 22.9 L MCHC 30.6 L RDW 28.3 H Plt Count 284 Seg Neutrophils % Not Reportable Sodium 132.1 L Potassium 3.6 Chloride 107 Carbon Dioxide 21 L Anion Gap 4 L BUN 10 Creatinine 0.71 Est GFR ( Amer) > 60 Glucose 75 Calcium 7.7 L Total Bilirubin 1.8 H AST 89 H Alkaline Phosphatase 177 H Total Protein 4.9 L Albumin 1.8 L 05/19/20 15:40 Clean Catch Midstream Urine Culture - Final E.faecium Vre 05/14/20 05/15/20 15:18 06:45 Troponin I < 0.012 < 0.012 Impressions: Abdomen Ultrasound 05/07/20 04:47 IMPRESSION: 1. Dilation of the common bile duct again identified measuring 1.2 cm. 2. Hepatic steatosis and hepatomegaly. 3. Prior cholecystectomy. PICC Line Insertion 05/14/20 00:00 IMPRESSION: SUCCESSFUL PLACEMENT OF A 5 FR DUAL LUMEN 42 CM PICC IN THE LEFT BASILIC VEIN. Venous Doppler Study 05/16/20 00:00 IMPRESSION: NO EVIDENCE DVT OR SVT IN EITHER LEG. Abdomen/Pelvis CT 05/20/20 00:00 IMPRESSION: External drain remains in place. There is a 3.4 x 5.0 cm fluid collection just medial to the tip of the drain. This is nonspecific and could represent simple postoperative fluid versus seroma. Abscess cannot entirely be excluded. There is small volume ascites. Pneumobilia. This is expected. Small amount of free air collected along the medial margin of the right lobe of liver most likely post surgical in nature or possibly introduced through the percutaneous drain. Small pleural effusions and basilar atelectasis left greater than right. Diffuse subcutaneous edema. Assessment and Plan - Diagnosis (1) Leukocytosis Is this a current diagnosis for this admission?: Yes Plan: Continued upward trend; 13.2-> 30.2-> 22.5-> 25.8-> 29-> 30.6-> 31.0-> 29 Patient remains afebrile and nontoxic in appearance Blood cultures pending. Urinalysis negative for UTI; urine culture shows enterococcus faecium VRE Importance of mobility reinforced with patient OOB 3 times daily; ambulate 3-4 times daily IS every hour Antibiotics: Start IV Linezolid for E. faecium VRE; Day #1 IV Zosyn discontinued 05/20 IV metronidazole discontinued 05/19 (2) Chronic iron deficiency anemia Is this a current diagnosis for this admission?: Yes Plan: Patient received 300 mg dose of iron sucrose on 05/09/2020 Patient has received total of 4 units PRBCs during current hospitalization Start ferrous sulfate supplementation Outpatient PCP follow-up. (3) Biliary stricture Is this a current diagnosis for this admission?: Yes Plan: Patient s/p exploratory laparotomy with ventral hernia repair, choledochoduodenoscopy, and liver biopsy on 05/09/2020 Continues to have significant output via ROSALVA drain (likely ascites) Surgical management per surgical service LFTs and lipase continue to improve. (4) Elevated lipase Is this a current diagnosis for this admission?: Yes Plan: Lipase 280-> 439-> 306 Diet advanced per surgery Primary management per Dr. Hubbard IV fluids discontinued Encourage p.o. fluids. Analgesics and antiemetics as needed. (5) Hyperbilirubinemia Is this a current diagnosis for this admission?: Yes Plan: Overall, trending down. No jaundice or icterus noted on exam Urine now clear/light yellow Primary management per surgery. (6) Obesity (BMI 30.0-34.9) Is this a current diagnosis for this admission?: Yes Plan: BMI 38.5 Strongly encourage dietary compliance and lifestyle modification. (7) Heme positive stool Is this a current diagnosis for this admission?: Yes Plan: It is unclear how much of patient's anemia was due to GI loss, surgical losses, or hemodilution Iron and transfusion as noted above No liana blood per rectum, hematochezia, or melena noted. Pantoprazole 40 mg daily Recommend outpatient endoscopy (8) H/O gastric bypass Is this a current diagnosis for this admission?: Yes Plan: Discussed with Dr. Hubbard today. Will assess for vitamin deficiencies. B12 915 Folate 3.47 Vitamin D low Zinc and Copper pending Check mag w/ am lab work. Continue Vit D3 1000u daily Start Calcium supplementation Start ferrous sulfate Start folic acid Continue Thiamine daily Continue B12 daily (9) Hypokalemia Is this a current diagnosis for this admission?: Yes Plan: Recurrent Oral replacement today. May benefit from spiroinolactone for continued management of hypokalemia and edema. Continue to monitor (10) KEERTHI (acute kidney injury) Is this a current diagnosis for this admission?: Yes Plan: Resolved. Encourage p.o. fluids Continue to avoid nephrotoxins Follow-up chemistry. (11) Constipation Is this a current diagnosis for this admission?: Yes Plan: Resolved; multiple bm's Continue bowel regiment; Colace twice daily, MiraLAX daily, milk of mag nightly if she has not had a bowel movement within 24 hours. She is encouraged to drink water and to ambulate 3-4 times daily in the hallway. (12) Anemia Qualifiers: Anemia type: iron deficiency Iron deficiency anemia type: unspecified iron deficiency Qualified Code(s): D50.9 - Iron deficiency anemia, unspecified Is this a current diagnosis for this admission?: Yes Plan: Hgb 6.6-> 12.4 (s/p 4 units PRBC) -> 7.8-> 8.4-> 8.4-> 7.9 No evidence of active bleeding. s/p 4 units PRBC Continue to monitor. Supplemental iron as above. (13) Edema Qualifiers: Edema type: due to malnutrition Is this a current diagnosis for this admission?: Yes Plan: Significantly improved. Related to poor nutrition and hypoalbuminemia Advancing diet to soft/low residue Per surgery; patient placed on twice daily albumin and furosemide internal grinder tender consulted FRANC hose; wrap w/ mira wraps if TEDs do not fit Encourage ambulation Daily weight, strict I&O (14) Hypomagnesemia Is this a current diagnosis for this admission?: Yes Plan: IV replacement today; periodic follow-up labs. (15) Chest pain Qualifiers: Chest pain type: unspecified Qualified Code(s): R07.9 - Chest pain, unspecified Is this a current diagnosis for this admission?: Yes Plan: Resolved. Atypical chest discomfort. Low suspicion for ACS event. Previously reported pain is associated with lying supine and p.o. dairy intake. Strong component of anxiety. Troponin x3 negative EKG are reassuring. Lipase trending down Continue to monitor on continuous cardiac telemetry. Patient declined trial of GI cocktail and SL Nitro. She is encouraged to change positions, ambulate, and utilize incentive spirometry. Antiemetics and analgesics as needed. - Time Time Spent with patient: 35 or more minutes Medications reviewed and adjusted accordingly: Yes Anticipated discharge: Home Within: Other
[2020-05-21] MEDS: CALCIUM CARBONATE 500 MG TAB.CHEW PO SCH ×2 (17:28→21:35)
[2020-05-21] MEDS: TRAMADOL HCL 50 MG TABLET PO PRN (21:34)
[2020-05-22] MEDS: FUROSEMIDE INJ/PF 40 MG/4 ML SDV IV SCH (00:21)
[2020-05-22] MEDS: PANTOPRAZOLE SODIUM 40 MG TABLET.DR PO SCH (05:41)
[2020-05-22 06:42] LABS: HEMATOCRIT 26.3 % (36.0-47.0); HEMOGLOBIN 8.1 g/dL (12.0-15.5); MEAN CORPUSCULAR HEMOGLOBIN 23.1 pg (27.0-33.4); MEAN CORPUSCULAR HGB CONC 30.7 g/dL (32.0-36.0); MEAN CORPUSCULAR VOLUME 75 fl (80-97); PLATELET COUNT 364 10^3/uL (150-450); RED CELL DISTRIBUTION WIDTH 28.3 % (11.5-14.0)
[2020-05-22 06:54] LABS: ALKALINE PHOSPHATASE 195 U/L (38-126); ANION GAP 5 (5-19); ASPARTATE AMINO TRANSFERASE 98 U/L (14-36); BILIRUBIN,DIRECT 1.6 mg/dL (0.0-0.4); BILIRUBIN,TOTAL 2.6 mg/dL (0.2-1.3); BLOOD UREA NITROGEN 12 mg/dL (7-20); CARBON DIOXIDE 20 mmol/L (22-30); CHLORIDE 106 mmol/L (98-107); GLUCOSE 84 mg/dL (75-110); POTASSIUM 3.5 mmol/L (3.6-5.0); TOTAL PROTEIN 4.9 g/dL (6.3-8.2)
[2020-05-22 07:22] LABS: WHITE BLOOD COUNT 40.3 10^3/uL (4.0-10.5)
[2020-05-22] MEDS: CALCIUM CARBONATE 500 MG TAB.CHEW PO SCH ×4 (07:44→21:18)
--- NOTE | 2020-05-22 07:51 | PDOC PROGRESS REPORT ---
Subjective Progress Note for:: 05/22/20 Subjective:: feels ok barbara reg diet having bm's no abd pain deisy serous acitic fluid clear wbc up today to 40k. Reason For Visit: BILIARY OBSTRUCTION S/P SURGERY Physical Exam Vital Signs: Temp Pulse Resp BP Pulse Ox 97.3 F 105 H 17 111/60 100 05/22/20 04:21 05/22/20 04:21 05/22/20 04:21 05/22/20 04:21 05/22/20 04:21 Intake & Output 05/21/20 05/22/20 05/23/20 06:59 06:59 06:59 Intake Total 780 1300 Output Total 840 640 Balance -60 660 Weight 122.6 kg 122.6 kg General appearance: PRESENT: no acute distress Head exam: PRESENT: normocephalic Eye exam: PRESENT: EOMI Ear exam: PRESENT: normal external ear exam Mouth exam: PRESENT: moist Neck exam: PRESENT: full ROM Respiratory exam: PRESENT: clear to auscultation winter Cardiovascular exam: PRESENT: RRR Pulses: PRESENT: normal femoral pulses, normal dorsalis pedis pul Vascular exam: PRESENT: normal capillary refill Breast: PRESENT: Normal GI/Abdominal exam: PRESENT: soft Rectal exam: PRESENT: deferred Extremities exam: PRESENT: full ROM, +1 edema Musculoskeletal exam: PRESENT: full ROM Neurological exam: PRESENT: alert, awake Psychiatric exam: PRESENT: appropriate affect Results Laboratory Results: 05/22/20 06:20 05/22/20 06:20 05/21/20 05/22/20 05/22/20 06:50 06:20 06:20 WBC 40.3 H* RBC 3.50 L Hgb 8.1 L Hct 26.3 L MCV 75 L MCH 23.1 L MCHC 30.7 L RDW 28.3 H Plt Count 364 Sodium 131.2 L Potassium 3.5 L Chloride 106 Carbon Dioxide 20 L Anion Gap 5 BUN 12 Creatinine 0.94 Est GFR ( Amer) > 60 Glucose 84 Calcium 8.0 L Magnesium 1.6 Total Bilirubin 2.6 H AST 98 H Alkaline Phosphatase 195 H Total Protein 4.9 L Albumin 2.0 L 05/19/20 15:40 Clean Catch Midstream Urine Culture - Final E.faecium Vre 05/14/20 05/15/20 15:18 06:45 Troponin I < 0.012 < 0.012 Impressions: Abdomen Ultrasound 05/07/20 04:47 IMPRESSION: 1. Dilation of the common bile duct again identified measuring 1.2 cm. 2. Hepatic steatosis and hepatomegaly. 3. Prior cholecystectomy. PICC Line Insertion 05/14/20 00:00 IMPRESSION: SUCCESSFUL PLACEMENT OF A 5 FR DUAL LUMEN 42 CM PICC IN THE LEFT BASILIC VEIN. Venous Doppler Study 05/16/20 00:00 IMPRESSION: NO EVIDENCE DVT OR SVT IN EITHER LEG. Abdomen/Pelvis CT 05/20/20 00:00 IMPRESSION: External drain remains in place. There is a 3.4 x 5.0 cm fluid co llection just medial to the tip of the drain. This is nonspecific and could represent simple postoperative fluid versus seroma. Abscess cannot entirely be excluded. There is small volume ascites. Pneumobilia. This is expected. Small amount of free air collected along the medial margin of the right lobe of liver most likely post surgical in nature or possibly introduced through the percutaneous drain. Small pleural effusions and basilar atelectasis left greater than right. Diffuse subcutaneous edema. Assessment & Plan - Plan Summary Plan Summary: etiol of wbc still unclear ct 2 days ago, did not show large fluid collection or abscess urine cultres noted and start on linolizid has been getting lasix albumin for acites with decreased edema and increased urine op creat remains stable plan will dc lasix/albumin today cxr cont iv abx
--- NOTE | 2020-05-22 08:44 | RADIOLOGY REPORT (SQ) ---
EXAM DESCRIPTION: CHEST SINGLE VIEW IMAGES COMPLETED DATE/TIME: 05/22/2020 8:33 am REASON FOR STUDY: rising wbc. COMPARISON: 05/20/2015 EXAM PARAMETERS: NUMBER OF VIEWS: One view. TECHNIQUE: Single frontal radiographic view of the chest acquired. RADIATION DOSE: NA LIMITATIONS: None. FINDINGS: LUNGS AND PLEURA: Minimal linear atelectasis in the right base. No focal consolidation. No pneumothorax or effusion. MEDIASTINUM AND HILAR STRUCTURES: No masses. Contour normal. HEART AND VASCULAR STRUCTURES: Heart normal in size. Normal vasculature. BONES: No acute findings. HARDWARE: Left-sided PICC line is in place. Catheter tip overlies the innominate vein. It has been slightly withdrawn since placement on May 14. OTHER: No other significant finding. IMPRESSION: Minimal right basilar airspace disease most likely atelectasis. PICC line has been slig htly withdrawn when compared to placement images dated May 14. Catheter tip overlies the innomina te vein on the current study. TECHNICAL DOCUMENTATION: JOB ID: [id number] [email or web address]- All Rights Reserved Reading location - IP/workstation name: [email or web address]
[2020-05-22] MEDS: LINEZOLID 600 MG/300 ML RTUPB IV SCH ×2 (09:46→21:19)
[2020-05-22] MEDS: LIDOCAINE 5% (700 MG) TRANSDERMAL ADH..PATCH TP SCH (09:47)
[2020-05-22] MEDS: CHOLECALCIFEROL (D3) 1,000 UNIT (25 MCG) TABLET PO SCH (09:48)
[2020-05-22] MEDS: FOLIC ACID 1 MG TABLET PO SCH (09:48)
[2020-05-22] MEDS: FERROUS SULFATE 325 MG TABLET PO SCH (09:48)
[2020-05-22] MEDS: POLYETHYLENE GLYCOL 3350 POWDER 17 GM/1 PACKET PO SCH (09:48)
[2020-05-22] MEDS: DOCUSATE SODIUM 100 MG CAPSULE PO SCH ×2 (09:48→17:01)
[2020-05-22] MEDS: METOPROLOL TARTRATE 25 MG TABLET PO SCH ×2 (09:49→22:28)
[2020-05-22] MEDS: NORMAL SALINE 10 ML SDV (SCHEDULED) IV SCH ×2 (09:50→21:24)
[2020-05-22] MEDS: NORMAL SALINE 10 ML SDV (AFTER EACH USE) IV PRN ×2 (09:51→22:59)
[2020-05-22] MEDS: CYANOCOBALAMIN (VITAMIN B-12) INJ 1000 MCG/1 ML VIAL IM SCH (09:51)
[2020-05-22] MEDS: ONDANSETRON HCL INJ/PF 4 MG/2 ML SDV IV PRN (09:53)
--- NOTE | 2020-05-22 20:33 | PDOC PROGRESS REPORT ---
Subjective Progress Note for:: 05/22/20 Subjective:: No complaints. Denies pain Reason For Visit: BILIARY OBSTRUCTION S/P SURGERY Physical Exam Vital Signs: Temp Pulse Resp BP Pulse Ox 98.2 F 99 18 120/61 98 05/22/20 19:28 05/22/20 19:28 05/22/20 19:28 05/22/20 19:28 05/22/20 19:28 Intake & Output 05/21/20 05/22/20 05/23/20 06:59 06:59 06:59 Intake Total 780 1300 1260 Output Total 840 640 300 Balance -60 660 960 Weight 122.6 kg 122.6 kg 122.6 kg General appearance: PRESENT: no acute distress, cooperative, obese, well- developed, well-nourished Head exam: PRESENT: atraumatic, normocephalic Eye exam: PRESENT: conjunctiva pink Mouth exam: PRESENT: moist, tongue midline Neck exam: ABSENT: JVD Respiratory exam: PRESENT: clear to auscultation winter, symmetrical, unlabored. ABSENT: accessory muscle use Cardiovascular exam: PRESENT: RRR, +S1, +S2 Pulses: PRESENT: normal carotid pulses, normal radial pulses GI/Abdominal exam: PRESENT: normal bowel sounds, soft, tenderness - Surgically tender. ROSALVA drain intact with serous drainage. Bulky abdominal dressing around ROSALVA insertion site saturated with drainage Rectal exam: PRESENT: deferred Extremities exam: PRESENT: full ROM. ABSENT: calf tenderness, clubbing, pedal edema Musculoskeletal exam: PRESENT: full ROM Neurological exam: PRESENT: alert, awake, oriented to person, oriented to place, oriented to time, oriented to situation, CN II-XII grossly intact Psychiatric exam: PRESENT: appropriate affect, normal mood. ABSENT: agitated, anxious Skin exam: PRESENT: dry, warm Results Laboratory Results: 05/22/20 06:20 05/22/20 06:20 05/22/20 05/22/20 06:20 06:20 WBC 40.3 H* RBC 3.50 L Hgb 8.1 L Hct 26.3 L MCV 75 L MCH 23.1 L MCHC 30.7 L RDW 28.3 H Plt Count 364 Sodium 131.2 L Potassium 3.5 L Chloride 106 Carbon Dioxide 20 L Anion Gap 5 BUN 12 Creatinine 0.94 Est GFR ( Amer) > 60 Glucose 84 Calcium 8.0 L Total Bilirubin 2.6 H AST 98 H Alkaline Phosphatase 195 H Total Protein 4.9 L Albumin 2.0 L 05/14/20 05/15/20 15:18 06:45 Troponin I < 0.012 < 0.012 Impressions: Abdomen Ultrasound 05/07/20 04:47 IMPRESSION: 1. Dilation of the common bile duct again identified measuring 1.2 cm. 2. Hepatic steatosis and hepatomegaly. 3. Prior cholecystectomy. PICC Line Insertion 05/14/20 00:00 IMPRESSION: SUCCESSFUL PLACEMENT OF A 5 FR DUAL LUMEN 42 CM PICC IN THE LEFT BASILIC VEIN. Venous Doppler Study 05/16/20 00:00 IMPRESSION: NO EVIDENCE DVT OR SVT IN EITHER LEG. Abdomen/Pelvis CT 05/20/20 00:00 IMPRESSION: External drain remains in place. There is a 3.4 x 5.0 cm fluid collection just medial to the tip of the drain. This is nonspecific and could represent simple postoperative fluid versus seroma. Abscess cannot entirely be excluded. There is small volume ascites. Pneumobilia. This is expected. Small amount of free air collected along the medial margin of the right lobe of liver most likely post surgical in nature or possibly introduced through the percutaneous drain. Small pleural effusions and basilar atelectasis left greater than right. Diffuse subcutaneous edema. Chest X-Ray 05/22/20 00:00 IMPRESSION: Minimal right basilar airspace disease most likely atelectasis. PICC line has been slightly withdrawn when compared to placement images dated May 14. Catheter tip overlies the innominate vein on the current study. Assessment and Plan - Diagnosis (1) Biliary stricture Is this a current diagnosis for this admission?: Yes Plan: Patient s/p exploratory laparotomy with ventral hernia repair, choledochoduodenoscopy, and liver biopsy on 05/09/2020 Continues to have significant output via ROSALVA drain (likely ascites) as well as drainage around insertion site Surgical management per surgical service Slight bump in LFTs and bilirubin today (2) Hyperbilirubinemia Is this a current diagnosis for this admission?: Yes Plan: Slight increase in bilirubin today as compared to yesterday No jaundice or icterus noted on exam Urine now clear/light yellow Primary management per surgery. (3) Abnormal liver function test Is this a current diagnosis for this admission?: Yes Plan: Noted above (4) Elevated lipase Is this a current diagnosis for this admission?: Yes Plan: Patient does not have abdominal pain Diet management per surgical service (5) Acute postoperative pain Is this a current diagnosis for this admission?: Yes Plan: Adequate pain control (6) H/O gastric bypass Is this a current diagnosis for this admission?: Yes Plan: Patient has noted vitamin deficiencies Continue ferrous sulfate 325 mg p.o. daily Continue calcium carbonate 500 mg p.o. 3 times daily with meals Continue cyanocobalamin 1000 mcg IM daily Continue folic acid 1 mg p.o. daily Continue vitamin D 1000 units p.o. daily Zinc and copper pending (7) Leukocytosis Is this a current diagnosis for this admission?: Yes Plan: CBC continues to trend up No significant findings on CT scan consistent with abscess CT abdomen/pelvis 05/20/2020: Small pleural effusions and bibasilar atelectasis left greater than right. Small amount of perihepatic fluid. Hepatomegaly. No pancreatic mass. No pancreatic calcifications. No adjacent inflammation or peripancreatic fluid collections. Pancreatic duct not dilated. Culture 05/19/2020: VRE Blood cultures 05/19/2020 NG at 72 hours Continue current antibiotics (linezolid 600 mg IV every 12 hours, day #2) (8) UTI (urinary tract infection) Is this a current diagnosis for this admission?: Yes Plan: Treatment as noted above (9) Chronic iron deficiency anemia Is this a current diagnosis for this admission?: Yes Plan: Patient received 300 mg dose of iron sucrose on 05/09/2020 Patient has received total of 4 units PRBCs during current hospitalization Continue iron supplementation as noted above Will need close outpatient follow-up (10) Heme positive stool Is this a current diagnosis for this admission?: Yes Plan: Continue pantoprazole 40 mg p.o. daily No liana signs of GI hemorrhage (hematochezia/melena) It is unclear how much of patient's anemia was due to GI loss, surgical losses, or hemodilution Patient will need outpatient endoscopy (11) Hypokalemia Is this a current diagnosis for this admission?: Yes Plan: Replete Monitor (12) KEERTHI (acute kidney injury) Is this a current diagnosis for this admission?: Yes Plan: Resolved. Continue to avoid nephrotoxins Monitor (13) Hyponatremia Is this a current diagnosis for this admission?: Yes Plan: Overall stable Patient remains asymptomatic Continue to monitor - Time Time Spent with patient: 25-34 minutes Medications reviewed and adjusted accordingly: Yes Anticipated discharge: Home Within: Other
[2020-05-22] MEDS ORDERED: POTASSIUM CHLORIDE 10 MEQ TABLET.ER PO ONE (21:00)
[2020-05-23] MEDS: PANTOPRAZOLE SODIUM 40 MG TABLET.DR PO SCH (05:32)
--- NOTE | 2020-05-23 07:26 | PDOC PROGRESS REPORT ---
Subjective Progress Note for:: 05/23/20 Subjective:: feels well barbara reg diet having bm's afeb vss Reason For Visit: BILIARY OBSTRUCTION S/P SURGERY Physical Exam Vital Signs: Temp Pulse Resp BP Pulse Ox 97.2 F 113 H 18 101/67 100 05/23/20 03:23 05/23/20 03:23 05/23/20 03:23 05/23/20 03:23 05/23/20 03:23 Intake & Output 05/22/20 05/23/20 05/24/20 06:59 06:59 06:59 Intake Total 1300 1984 Output Total 640 710 Balance 660 1274 Weight 122.6 kg 119.6 kg General appearance: PRESENT: no acute distress Head exam: PRESENT: normocephalic Eye exam: PRESENT: EOMI Ear exam: PRESENT: normal external ear exam Mouth exam: PRESENT: moist Neck exam: PRESENT: full ROM Respiratory exam: PRESENT: clear to auscultation winter Cardiovascular exam: PRESENT: RRR Pulses: PRESENT: +2 pedal pulses bilateral GI/Abdominal exam: PRESENT: soft, other - deisy drains clear ascitic fluid Rectal exam: PRESENT: deferred Extremities exam: PRESENT: full ROM Musculoskeletal exam: PRESENT: full ROM Neurological exam: PRESENT: alert, awake Psychiatric exam: PRESENT: appropriate affect Skin exam: PRESENT: dry Results Laboratory Results: 05/22/20 06:20 WBC 40.3 H* RBC 3.50 L Hgb 8.1 L Hct 26.3 L MCV 75 L MCH 23.1 L MCHC 30.7 L RDW 28.3 H Plt Count 364 05/14/20 05/15/20 15:18 06:45 Troponin I < 0.012 < 0.012 Impressions: Abdomen Ultrasound 05/07/20 04:47 IMPRESSION: 1. Dilation of the common bile duct again identified measuring 1.2 cm. 2. Hepatic steatosis and hepatomegaly. 3. Prior cholecystectomy. PICC Line Insertion 05/14/20 00:00 IMPRESSION: SUCCESSFUL PLACEMENT OF A 5 FR DUAL LUMEN 42 CM PICC IN THE LEFT BASILIC VEIN. Venous Doppler Study 05/16/20 00:00 IMPRESSION: NO EVIDENCE DVT OR SVT IN EITHER LEG. Abdomen/Pelvis CT 05/20/20 00:00 IMPRESSION: External drain remains in place. There is a 3.4 x 5.0 cm fluid collection just medial to the tip of the drain. This is nonspecific and could represent simple postoperative fluid versus seroma. Abscess cannot entirely be excluded. There is small volume ascites. Pneumobilia. This is expected. Small amount of free air collected along the medial margin of the right lobe of liver most likely post surgical in nature or possibly introduced through the percutaneous drain. Small pleural effusions and basilar atelectasis left greater than right. Diffuse subcutaneous edema. Chest X-Ray 05/22/20 00:00 IMPRESSION: Minimal right basilar airspace disease most likely atelectasis. PICC line has been slightly withdrawn when compared to placement images dated May 14. Catheter tip overlies the innominate vein on the current study. Assessment & Plan - Plan Summary Plan Summary: pt feels well\ eating well nl bm's no abd pain no fever or chills no dvt on dopplers still with elevated wbc uti being rx with linelozid unclear etiol will send stool for c-diff
[2020-05-23 07:33] LABS: BLOOD UREA NITROGEN 16 mg/dL (7-20); CALCIUM 7.8 mg/dL (8.4-10.2); GLUCOSE 84 mg/dL (75-110); POTASSIUM 3.8 mmol/L (3.6-5.0)
[2020-05-23 07:38] LABS: CARBON DIOXIDE 21 mmol/L (22-30); CHLORIDE 105 mmol/L (98-107)
[2020-05-23 07:43] LABS: HEMATOCRIT 28.4 % (36.0-47.0); HEMOGLOBIN 8.7 g/dL (12.0-15.5); MEAN CORPUSCULAR HEMOGLOBIN 23.1 pg (27.0-33.4); MEAN CORPUSCULAR HGB CONC 30.6 g/dL (32.0-36.0); MEAN CORPUSCULAR VOLUME 76 fl (80-97); RED BLOOD COUNT 3.76 10^6/uL (3.72-5.28); RED CELL DISTRIBUTION WIDTH 27.3 % (11.5-14.0)
[2020-05-23 07:47] LABS: ANION GAP 4 (5-19)
[2020-05-23] MEDS: CALCIUM CARBONATE 500 MG TAB.CHEW PO SCH ×4 (07:54→22:24)
[2020-05-23 07:56] LABS: WHITE BLOOD COUNT 44.8 10^3/uL (4.0-10.5)
[2020-05-23 07:57] LABS: ABSOLUTE LYMPHOCYTES# (MANUAL) 1.8 10^3/uL (0.5-4.7); ABSOLUTE MONOCYTES # (MANUAL) 2.7 10^3/uL (0.1-1.4); BASOPHILS % (MANUAL) 0 % (0-2); EOSINOPHILS % (MANUAL) 0 % (0-6); LYMPHOCYTES % (MANUAL) 4 % (13-45); MONOCYTES % (MANUAL) 6 % (3-13); SEGMENTED NEUTROPHILS % (MAN) 90 % (42-78); TOTAL CELLS COUNTED 100
[2020-05-23 07:58] LABS: ANISOCYTOSIS 3+; HYPOCHROMASIA 1+; POLYCHROMASIA SLIGHT
[2020-05-23 07:59] LABS: PLATELET CLUMPS PRESENT; PLATELET COMMENT ADEQUATE; PLATELET COUNT 427 10^3/uL (150-450); PLATELET LARGE PRESENT; TOXIC VACUOLATION PRESENT
[2020-05-23] MEDS ORDERED: METRONIDAZOLE RTU 500 MG/NS 100 ML IV SCH (09:00)
[2020-05-23] MEDS: CHOLECALCIFEROL (D3) 1,000 UNIT (25 MCG) TABLET PO SCH (09:40)
[2020-05-23] MEDS: METRONIDAZOLE 500 MG/NS RTU 500 MG/100 ML RTUPB IV SCH ×2 (09:40→18:09)
[2020-05-23] MEDS: FERROUS SULFATE 325 MG TABLET PO SCH (09:41)
[2020-05-23] MEDS: FOLIC ACID 1 MG TABLET PO SCH (09:41)
[2020-05-23] MEDS: CYANOCOBALAMIN (VITAMIN B-12) INJ 1000 MCG/1 ML VIAL IM SCH (09:41)
[2020-05-23] MEDS: LIDOCAINE 5% (700 MG) TRANSDERMAL ADH..PATCH TP SCH (09:42)
[2020-05-23] MEDS: DOCUSATE SODIUM 100 MG CAPSULE PO SCH ×2 (09:43→18:26)
[2020-05-23] MEDS: POLYETHYLENE GLYCOL 3350 POWDER 17 GM/1 PACKET PO SCH (09:43)
[2020-05-23] MEDS: NORMAL SALINE 10 ML SDV (SCHEDULED) IV SCH ×2 (09:44→22:24)
[2020-05-23] MEDS: METOPROLOL TARTRATE 25 MG TABLET PO SCH ×2 (09:58→22:24)
[2020-05-23] MEDS: ONDANSETRON HCL INJ/PF 4 MG/2 ML SDV IV PRN ×2 (10:08→21:10)
[2020-05-23] MEDS: LINEZOLID 600 MG/300 ML RTUPB IV SCH ×2 (10:08→22:23)
[2020-05-23 12:15] LABS: PATH REVIEW PATHOLOGIST REVIEWED
--- NOTE | 2020-05-23 12:36 | PDOC PROGRESS REPORT ---
Subjective Progress Note for:: 05/23/20 Subjective:: Patient does not have any complaints today. Denies abdominal pain. States that her BMs are soft but not diarrhea. No chills Reason For Visit: BILIARY OBSTRUCTION S/P SURGERY Physical Exam Vital Signs: Temp Pulse Resp BP Pulse Ox 97.6 F 127 H 18 90/48 L 100 05/23/20 08:39 05/23/20 08:39 05/23/20 08:39 05/23/20 08:39 05/23/20 08:39 Intake & Output 05/22/20 05/23/20 05/24/20 06:59 06:59 06:59 Intake Total 1300 1984 Output Total 640 710 Balance 660 1274 Weight 122.6 kg 119.6 kg 119.6 kg General appearance: PRESENT: no acute distress, cooperative, morbidly obese Head exam: PRESENT: atraumatic, normocephalic Eye exam: PRESENT: conjunctiva pink Ear exam: PRESENT: normal external ear exam Mouth exam: PRESENT: moist, tongue midline Neck exam: ABSENT: JVD Respiratory exam: PRESENT: clear to auscultation winter, decreased breath sounds - Air entry diminished at bases bilaterally, symmetrical, unlabored. ABSENT: accessory muscle use, tachypnea Cardiovascular exam: PRESENT: RRR, +S1, +S2 Pulses: PRESENT: normal radial pulses Vascular exam: PRESENT: normal capillary refill GI/Abdominal exam: PRESENT: ascites, normal bowel sounds, soft, tenderness - S urgically tender. ABSENT: rigid Rectal exam: PRESENT: deferred Extremities exam: PRESENT: full ROM, +2 edema, other - Anasarca. ABSENT: calf tenderness Neurological exam: PRESENT: alert, awake, oriented to person, oriented to place, oriented to time, oriented to situation, CN II-XII grossly intact Psychiatric exam: ABSENT: agitated, anxious Skin exam: PRESENT: dry, normal color, warm, other - Abdominal incision well approximated without erythema or exudate. ROSALVA drain intact with serous drainage noted in bulb Results Laboratory Results: 05/23/20 06:50 05/23/20 06:50 05/23/20 05/23/20 06:50 06:50 WBC 44.8 H* RBC 3.76 Hgb 8.7 L Hct 28.4 L MCV 76 L MCH 23.1 L MCHC 30.6 L RDW 27.3 H Plt Count 427 Seg Neutrophils % Not Reportable Sodium 129.6 L Potassium 3.8 Chloride 105 Carbon Dioxide 21 L Anion Gap 4 L BUN 16 Creatinine 1.31 H Est GFR ( Amer) 52 L Glucose 84 Calcium 7.8 L 05/14/20 05/15/20 15:18 06:45 Troponin I < 0.012 < 0.012 Impressions: Abdomen Ultrasound 05/07/20 04:47 IMPRESSION: 1. Dilation of the common bile duct again identified measuring 1.2 cm. 2. Hepatic steatosis and hepatomegaly. 3. Prior cholecystectomy. PICC Line Insertion 05/14/20 00:00 IMPRESSION: SUCCESSFUL PLACEMENT OF A 5 FR DUAL LUMEN 42 CM PICC IN THE LEFT BASILIC VEIN. Venous Doppler Study 05/16/20 00:00 IMPRESSION: NO EVIDENCE DVT OR SVT IN EITHER LEG. Abdomen/Pelvis CT 05/20/20 00:00 IMPRESSION: External drain remains in place. There is a 3.4 x 5.0 cm fluid collection just medial to the tip of the drain. This is nonspecific and could represent simple postoperative fluid versus seroma. Abscess cannot entirely be excluded. There is small volume ascites. Pneumobilia. This is expected. Small amount of free air collected along the medial margin of the right lobe of liver most likely post surgical in nature or possibly introduced through the percutaneous drain. Small pleural effusions and basilar atelectasis left greater than right. Diffuse subcutaneous edema. Chest X-Ray 05/22/20 00:00 IMPRESSION: Minimal right basilar airspace disease most likely atelectasis. PICC line has been slightly withdrawn when compared to placement images dated May 14. Catheter tip overlies the innominate vein on the current study. Assessment and Plan - Diagnosis (1) Biliary stricture Is this a current diagnosis for this admission?: Yes Plan: Patient s/p exploratory laparotomy with ventral hernia repair, choledochoduodenoscopy, and liver biopsy on 05/09/2020 Continues to have significant output via ROSALVA drain (likely ascites) as well as drainage around insertion site Surgical management per surgical service Recheck CMP in a.m. (2) Hyperbilirubinemia Is this a current diagnosis for this admission?: Yes Plan: No jaundice or icterus noted on exam Urine now clear/light yellow Primary management per surgery. Recheck in a.m. (3) Abnormal liver function test Is this a current diagnosis for this admission?: Yes Plan: As noted above (4) Elevated lipase Is this a current diagnosis for this admission?: Yes Plan: Patient does not have abdominal pain Diet management per surgical service (5) Acute postoperative pain Is this a current diagnosis for this admission?: Yes Plan: Adequate pain control (6) H/O gastric bypass Is this a current diagnosis for this admission?: Yes Plan: Patient has noted vitamin deficiencies Continue ferrous sulfate 325 mg p.o. daily Continue calcium carbonate 500 mg p.o. 3 times daily with meals Continue cyanocobalamin 1000 mcg IM daily Continue folic acid 1 mg p.o. daily Continue vitamin D 1000 units p.o. daily Zinc and copper still pending (7) Leukocytosis Is this a current diagnosis for this admission?: Yes Plan: WBC continues to tend up without clear etiology. No significant findings on last CT scan consistent with abscess Will repeat CT abdomen/pelvis today without contrast given bump in creatinine Urine culture 05/19/2020: VRE Blood cultures 05/19/2020 NG at 72 hours Stool sent for C. difficile per surgery Continue linezolid 600 mg IV every 12 hours, day #3 Add metronidazole 500 mg IV every 8 hours, discussed with surgery who is in agreement (8) UTI (urinary tract infection) Is this a current diagnosis for this admission?: Yes Plan: Treatment as noted above (9) Chronic iron deficiency anemia Is this a current diagnosis for this admission?: Yes Plan: Patient received 300 mg dose of iron sucrose on 05/09/2020 Patient has received total of 4 units PRBCs during current hospitalization Continue iron supplementation as noted above Will need close outpatient follow-up (10) Heme positive stool Is this a current diagnosis for this admission?: Yes Plan: Continue pantoprazole 40 mg p.o. daily No liana signs of GI hemorrhage (hematochezia/melena) It is unclear how much of patient's anemia was due to GI loss, surgical losses, or hemodilution Patient will need outpatient endoscopy (11) Hypokalemia Is this a current diagnosis for this admission?: Yes Plan: Serum potassium now WNL Monitor and replete PRN (12) KEERTHI (acute kidney injury) Is this a current diagnosis for this admission?: Yes Plan: Decline noted in renal function today, likely related to diuretic Continue to avoid nephrotoxins Monitor (13) Hyponatremia Is this a current diagnosis for this admission?: Yes Plan: Overall stable Patient remains asymptomatic Continue to monitor - Time Time Spent with patient: 35 or more minutes Medications reviewed and adjusted accordingly: Yes Anticipated discharge: Home Within: Other
--- NOTE | 2020-05-23 14:54 | RADIOLOGY REPORT (SQ) ---
EXAM DESCRIPTION: CT ABD/PELVIS ORAL ONLY IMAGES COMPLETED DATE/TIME: 05/23/2020 2:20 pm REASON FOR STUDY: rising wbc COMPARISON: 05/20/2020 TECHNIQUE: CT scan of the abdomen and pelvis performed with oral contrast and no intravenous contras t. Images reviewed with lung, soft tissue, and bone windows. Reconstructed coronal and sagittal MPR i mages reviewed. All images stored on PACS. All CT scanners at this facility use dose modulation, iterative reconstruction, and/or weight based d osing when appropriate to reduce radiation dose to as low as reasonably achievable (ALARA). [facility]: Dose Right [facility]: CareDose [facility]: Dose Right [facility]: Teradose 4D [facility]: Alere RADIATION DOSE: CT Rad equipment meets quality standard of care and radiation dose reduction techniq ues were employed. CTDIvol: 28.9 mGy. DLP: 1573 mGy-cm. mGy. LIMITATIONS: None. FINDINGS: Surgical drain tip in the gallbladder fossa position not significantly changed. There has been near complete resolution of the previously described fluid collection adjacent to the drain. P ocket of free air anterior to the gastric antrum is unchanged consistent with recent surgery. Decrea se in the amount of ascites which is now only a trace amount. No abscess or dilated loops of bowel. Appearance is otherwise unchanged. IMPRESSION: No abscess. Decrease in fluid collection adjacent to the drain in the gallbladder fossa . TECHNICAL DOCUMENTATION: JOB ID: [id number] Quality ID # [id number]: Final reports with documentation of one or more dose reduction techniques (e.g., Au tomated exposure control, adjustment of the mA and/or kV according to patient size, use of iterative reconstruction technique) 2010 [employer]- All Rights Reserved Reading location - IP/workstation name: [email or web address]
[2020-05-23] MEDS: TRAMADOL HCL 50 MG TABLET PO PRN (21:10)
[2020-05-24] MEDS: METRONIDAZOLE 500 MG/NS RTU 500 MG/100 ML RTUPB IV SCH ×3 (02:52→18:00)
[2020-05-24] MEDS: PANTOPRAZOLE SODIUM 40 MG TABLET.DR PO SCH (05:01)
--- NOTE | 2020-05-24 08:24 | PDOC PROGRESS REPORT ---
Subjective Progress Note for:: 05/24/20 Subjective:: feels ok this am barbara diet passing stool no complaints of pain Reason For Visit: BILIARY OBSTRUCTION S/P SURGERY Physical Exam Vital Signs: Temp Pulse Resp BP Pulse Ox 98.0 F 87 18 104/65 100 05/23/20 23:03 05/24/20 02:00 05/23/20 23:03 05/23/20 23:03 05/23/20 23:03 Intake & Output 05/23/20 05/24/20 05/25/20 06:59 06:59 06:59 Intake Total 1983 1779 Output Total 710 340 Balance 1274 1440 Weight 119.6 kg 119.6 kg General appearance: PRESENT: no acute distress Head exam: PRESENT: normocephalic Eye exam: PRESENT: EOMI Ear exam: PRESENT: normal external ear exam Mouth exam: PRESENT: moist Teeth exam: PRESENT: poor dentation Neck exam: PRESENT: full ROM Respiratory exam: PRESENT: clear to auscultation winter Cardiovascular exam: PRESENT: RRR Pulses: PRESENT: normal femoral pulses, normal dorsalis pedis pul Vascular exam: PRESENT: normal capillary refill GI/Abdominal exam: PRESENT: soft Rectal exam: PRESENT: deferred Extremities exam: PRESENT: full ROM Musculoskeletal exam: PRESENT: full ROM Neurological exam: PRESENT: alert, awake, oriented to person, oriented to place Psychiatric exam: PRESENT: appropriate affect Skin exam: PRESENT: dry Results Laboratory Results: 05/23/20 06:50 05/23/20 06:50 05/14/20 05/15/20 15:18 06:45 Troponin I < 0.012 < 0.012 Impressions: Abdomen Ultrasound 05/07/20 04:47 IMPRESSION: 1. Dilation of the common bile duct again identified measuring 1.2 cm. 2. Hepatic steatosis and hepatomegaly. 3. Prior cholecystectomy. PICC Line Insertion 05/14/20 00:00 IMPRESSION: SUCCESSFUL PLACEMENT OF A 5 FR DUAL LUMEN 42 CM PICC IN THE LEFT BASILIC VEIN. Venous Doppler Study 05/16/20 00:00 IMPRESSION: NO EVIDENCE DVT OR SVT IN EITHER LEG. Chest X-Ray 05/22/20 00:00 IMPRESSION: Minimal right basilar airspace disease most likely atelectasis. PICC line has been slightly withdrawn when compared to placement images dated May 14. Catheter tip overlies the innominate vein on the current study. Abdomen/Pelvis CT 05/23/20 00:00 IMPRESSION: No abscess. Decrease in fluid collection adjacent to the drain in the gallbladder fossa. Assessment & Plan - Plan Summary Plan Summary: doing ok ct from yesterday reviewed no evidence of a leak or abscess no significant fluid collection ascites fluid resolving sub q anasarca labs this am pending
[2020-05-24] MEDS: CALCIUM CARBONATE 500 MG TAB.CHEW PO SCH ×4 (09:03→22:18)
[2020-05-24] MEDS: DOCUSATE SODIUM 100 MG CAPSULE PO SCH ×2 (11:08→17:53)
[2020-05-24] MEDS: FOLIC ACID 1 MG TABLET PO SCH (11:10)
[2020-05-24] MEDS: METOPROLOL TARTRATE 25 MG TABLET PO SCH ×2 (11:10→22:21)
[2020-05-24] MEDS: CHOLECALCIFEROL (D3) 1,000 UNIT (25 MCG) TABLET PO SCH (11:10)
[2020-05-24] MEDS: FERROUS SULFATE 325 MG TABLET PO SCH (11:10)
[2020-05-24] MEDS: NORMAL SALINE 10 ML SDV (AFTER EACH USE) IV PRN (11:11)
[2020-05-24] MEDS: NORMAL SALINE 10 ML SDV (SCHEDULED) IV SCH ×2 (11:11→22:20)
[2020-05-24] MEDS: LIDOCAINE 5% (700 MG) TRANSDERMAL ADH..PATCH TP SCH (11:11)
[2020-05-24] MEDS: CYANOCOBALAMIN (VITAMIN B-12) INJ 1000 MCG/1 ML VIAL IM SCH (11:12)
[2020-05-24] MEDS: POLYETHYLENE GLYCOL 3350 POWDER 17 GM/1 PACKET PO SCH (11:13)
[2020-05-24 11:18] LABS: BLOOD UREA NITROGEN 22 mg/dL (7-20); CALCIUM 7.7 mg/dL (8.4-10.2); GLUCOSE 80 mg/dL (75-110)
[2020-05-24] MEDS: ONDANSETRON HCL INJ/PF 4 MG/2 ML SDV IV PRN ×2 (11:19→17:59)
[2020-05-24 11:24] LABS: ANION GAP 5 (5-19); CARBON DIOXIDE 21 mmol/L (22-30); CHLORIDE 102 mmol/L (98-107)
[2020-05-24 11:51] LABS: RED BLOOD COUNT 3.42 10^6/uL (3.72-5.28)
[2020-05-24 11:52] LABS: HEMATOCRIT 25.9 % (36.0-47.0); MEAN CORPUSCULAR HEMOGLOBIN 23.1 pg (27.0-33.4); MEAN CORPUSCULAR HGB CONC 30.4 g/dL (32.0-36.0); MEAN CORPUSCULAR VOLUME 76 fl (80-97); PLATELET COUNT 435 10^3/uL (150-450); RED CELL DISTRIBUTION WIDTH 26.8 % (11.5-14.0)
[2020-05-24 12:05] LABS: HEMOGLOBIN 7.9 g/dL (12.0-15.5); WHITE BLOOD COUNT 36.8 10^3/uL (4.0-10.5)
[2020-05-24 12:07] LABS: ABSOLUTE LYMPHOCYTES# (MANUAL) 1.8 10^3/uL (0.5-4.7); ABSOLUTE MONOCYTES # (MANUAL) 1.5 10^3/uL (0.1-1.4); BASOPHILS % (MANUAL) 0 % (0-2); EOSINOPHILS % (MANUAL) 0 % (0-6); LYMPHOCYTES % (MANUAL) 5 % (13-45); MONOCYTES % (MANUAL) 4 % (3-13); SEGMENTED NEUTROPHILS % (MAN) 91 % (42-78); TOTAL CELLS COUNTED 100
[2020-05-24 12:15] LABS: HYPOCHROMASIA SLIGHT; TEAR DROP CELLS SLIGHT; TOXIC VACUOLATION PRESENT
[2020-05-24 12:16] LABS: PLATELET CLUMPS PRESENT; PLATELET COMMENT ADEQUATE; TARGET CELLS SLIGHT
[2020-05-24] MEDS: LINEZOLID 600 MG/300 ML RTUPB IV SCH ×2 (12:51→22:20)
--- NOTE | 2020-05-24 14:48 | PDOC PROGRESS REPORT ---
Subjective Progress Note for:: 05/24/20 Subjective:: Adequate pain control. Patient expresses today that she is eager for discharge Reason For Visit: BILIARY OBSTRUCTION S/P SURGERY Physical Exam Vital Signs: Temp Pulse Resp BP Pulse Ox 97.2 F 87 18 105/57 L 100 05/24/20 07:58 05/24/20 07:58 05/24/20 07:58 05/24/20 07:58 05/24/20 07:58 Intake & Output 05/23/20 05/24/20 05/25/20 06:59 06:59 06:59 Intake Total 1984 0 Output Total 710 340 Balance 1274 1440 Weight 119.6 kg 119.6 kg General appearance: PRESENT: no acute distress, cooperative, morbidly obese Head exam: PRESENT: atraumatic, normocephalic Eye exam: PRESENT: conjunctiva pink Mouth exam: PRESENT: moist, tongue midline Neck exam: ABSENT: JVD Respiratory exam: PRESENT: clear to auscultation winter, decreased breath sounds - Air entry diminished at bases bilaterally, symmetrical, unlabored. ABSENT: accessory muscle use Cardiovascular exam: PRESENT: RRR, +S1, +S2 Pulses: PRESENT: normal carotid pulses, normal radial pulses GI/Abdominal exam: PRESENT: normal bowel sounds, soft, other - Surgically tender. ABSENT: firm, rebound, rigid Rectal exam: PRESENT: deferred Extremities exam: PRESENT: other - Generalized edema. ABSENT: calf tenderness, clubbing Neurological exam: PRESENT: alert, awake, oriented to person, oriented to place, oriented to time, oriented to situation, CN II-XII grossly intact Psychiatric exam: ABSENT: agitated, anxious Skin exam: PRESENT: dry, normal color, warm Results Laboratory Results: 05/24/20 10:47 05/24/20 10:47 05/24/20 05/24/20 10:47 10:47 WBC 36.8 H* RBC 3.42 L Hgb 7.9 L Hct 25.9 L MCV 76 L MCH 23.1 L MCHC 30.4 L RDW 26.8 H Plt Count 435 Seg Neutrophils % Not Reportable Sodium 128.0 L Potassium 4.0 Chloride 102 Carbon Dioxide 21 L Anion Gap 5 BUN 22 H Creatinine 1.64 H Est GFR ( Amer) 40 L Glucose 80 Calcium 7.7 L 07/14/20 07/15/20 15:18 06:45 Troponin I < 0.012 < 0.012 Impressions: Abdomen Ultrasound 05/07/20 04:47 IMPRESSION: 1. Dilation of the common bile duct again identified measuring 1.2 cm. 2. Hepatic steatosis and hepatomegaly. 3. Prior cholecystectomy. PICC Line Insertion 05/14/20 00:00 IMPRESSION: SUCCESSFUL PLACEMENT OF A 5 FR DUAL LUMEN 42 CM PICC IN THE LEFT BASILIC VEIN. Venous Doppler Study 05/16/20 00:00 IMPRESSION: NO EVIDENCE DVT OR SVT IN EITHER LEG. Chest X-Ray 05/22/20 00:00 IMPRESSION: Minimal right basilar airspace disease most likely atelectasis. PICC line has been slightly withdrawn when compared to placement images dated May 14. Catheter tip overlies the innominate vein on the current study. Abdomen/Pelvis CT 05/23/20 00:00 IMPRESSION: No abscess. Decrease in fluid collection adjacent to the drain in the gallbladder fossa. Assessment and Plan - Diagnosis (1) Biliary stricture Is this a current diagnosis for this admission?: Yes Plan: Patient s/p exploratory laparotomy with ventral hernia repair, choledochoduodenoscopy, and liver biopsy on 05/09/2020 Continues to have output via ROSALVA drain (likely ascites) as well as drainage around insertion site Surgical management per surgical service (2) Hyperbilirubinemia Is this a current diagnosis for this admission?: Yes Plan: No jaundice or icterus noted on exam Urine now clear/light yellow Primary management per surgery. BMP drawn this a.m. instead of CMP we will order CMP for a.m. (3) Abnormal liver function test Is this a current diagnosis for this admission?: Yes Plan: As noted above (4) Elevated lipase Is this a current diagnosis for this admission?: Yes Plan: Patient does not have abdominal pain Diet management per surgical service (5) Acute postoperative pain Is this a current diagnosis for this admission?: Yes Plan: Adequate pain control (6) H/O gastric bypass Is this a current diagnosis for this admission?: Yes Plan: Patient has noted vitamin deficiencies Continue ferrous sulfate 325 mg p.o. daily Continue calcium carbonate 500 mg p.o. 3 times daily with meals Continue cyanocobalamin 1000 mcg IM daily Continue folic acid 1 mg p.o. daily Continue vitamin D 1000 units p.o. daily Zinc level low at 34 Start zinc sulfate 220 mg p.o. daily Copper level still pending (7) Leukocytosis Is this a current diagnosis for this admission?: Yes Plan: WBC improved today Repeat CT of the abdomen/pelvis revealed no abscess and decrease in fluid c ollection adjacent to the drain in the gallbladder fossa Urine culture 05/19/2020: VRE Blood cultures 05/19/2020 NG at 4 days Stool sent for C. difficile per surgery, results pending Continue linezolid 600 mg IV every 12 hours, day #4 Continue metronidazole 500 mg IV every 8 hours (8) UTI (urinary tract infection) Is this a current diagnosis for this admission?: Yes Plan: Treatment as noted above (9) Chronic iron deficiency anemia Is this a current diagnosis for this admission?: Yes Plan: Patient received 300 mg dose of iron sucrose on 05/09/2020 Patient has received total of 4 units PRBCs during current hospitalization Patient had an almost 1 g drop in hemoglobin over past 24 hours, will need to monitor Continue iron supplementation as noted above Will need close outpatient follow-up (10) Heme positive stool Is this a current diagnosis for this admission?: Yes Plan: Continue pantoprazole 40 mg p.o. daily No liana signs of GI hemorrhage (hematochezia/melena) It is unclear how much of patient's anemia was due to GI loss, surgical losses, or hemodilution Patient will need outpatient endoscopy (11) Hypokalemia Is this a current diagnosis for this admission?: Yes Plan: Serum potassium now WNL Monitor and replete PRN (12) KEERTHI (acute kidney injury) Is this a current diagnosis for this admission?: Yes Plan: Renal function has deteriorated further today Likely prerenal We will give 500 cc 5% albumin Continue to avoid nephrotoxins Monitor (13) Hyponatremia Is this a current diagnosis for this admission?: Yes Plan: Serum sodium slowly trending down Patient remains asymptomatic Continue to monitor - Time Time Spent with patient: 25-34 minutes Medications reviewed and adjusted accordingly: Yes Anticipated Discharge Disposition: Home, Self Care Anticipated Discharge: Other
[2020-05-24] MEDS ORDERED: ALBUMIN HUMAN 500 ML IV ONE (15:30)
[2020-05-24] MEDS: ZINC SULFATE 220 MG CAPSULE PO SCH (15:38)
[2020-05-24] MEDS: TRAMADOL HCL 50 MG TABLET PO PRN (20:40)
--- NOTE | 2020-05-24 22:50 | Progress Note ---
Provider Note Provider Note: [facility] Infectious Diseases - Remote/Telephone Consult Note Asked earlier this afternoon to review patient's chart by Pharmacy and to comment on etiology of marked leukocytosis/leukemoid reaction and whether patient may have an invasive fungal infection that could account for her continued leukocytosis. Patient not seen or examined. Reviewed provider notes, imaging reports, relevant labs. Etiology of marked leukocytosis or leukemoid reaction is also not clear to me. In general, with leukemoid reactions, infections account for the majority of identified causes. However, her evaluation for an infection has been negative including: - no growth from blood cultures on 05/19 (although was already on empiric Unasyn since 05/11 plus Flagyl since 05/12; however, this would not have prevented detection of candidemia ) - CXR w/o consolidation - U/A and UCx sent for question of UTI. However, lack of dysuria reported by patient in provider's note. Has also had no improvement in WBC count with treatment aimed at the VRE in urine cx; suspect this is asymptomatic bacteriuria and would not continue linezolid. - consideration of C difficile infection, as this can certainly cause high WBC counts, and pt at risk given exposure to broad spectrum antibiotics. However, no diarrhea reported by pt. - CT abd/pelvis with no abscess and near resolution of RUQ fluid with surgical drain Leukemoid reactions also result from one or more non-infectious inflammatatory conditions or insults, such as tissue damage or ischemia (e.g. MA, PE), invasive procedures/major surgery, bleeding or acute hemolysis, pancreatitis, malignancy (e.g. paraneoplastic leukocytosis), certain medications (e.g. catecholamines, steroids), others. Any acutely stressful event could result in increased neutrophilia. The patient has not been febrile, VSS, has not appeared sytemically ill or had localized sx attributable to infection. Clinical improvement during post op course did not seem to correlate with the changes in her WBC count, nor what antibiotic she was receiving empirically. Would consider stopping antibiotics and monitoring patient. Marin Novak MD [facility] Infectious Diseases pager [phone]
[2020-05-25] MEDS: METRONIDAZOLE 500 MG/NS RTU 500 MG/100 ML RTUPB IV SCH ×3 (02:38→17:22)
[2020-05-25] MEDS: PANTOPRAZOLE SODIUM 40 MG TABLET.DR PO SCH (05:31)
[2020-05-25 06:55] LABS: HEMATOCRIT 24.6 % (36.0-47.0); MEAN CORPUSCULAR HEMOGLOBIN 23.5 pg (27.0-33.4); MEAN CORPUSCULAR HGB CONC 30.7 g/dL (32.0-36.0); MEAN CORPUSCULAR VOLUME 77 fl (80-97); PLATELET COUNT 437 10^3/uL (150-450); RED BLOOD COUNT 3.21 10^6/uL (3.72-5.28); RED CELL DISTRIBUTION WIDTH 25.7 % (11.5-14.0)
[2020-05-25 07:09] LABS: ANION GAP 6 (5-19); BLOOD UREA NITROGEN 22 mg/dL (7-20); CARBON DIOXIDE 20 mmol/L (22-30); CHLORIDE 102 mmol/L (98-107); GLUCOSE 77 mg/dL (75-110); POTASSIUM 3.9 mmol/L (3.6-5.0)
[2020-05-25 07:10] LABS: HEMOGLOBIN 7.6 g/dL (12.0-15.5); WHITE BLOOD COUNT 34.7 10^3/uL (4.0-10.5)
[2020-05-25 07:18] LABS: ABSOLUTE MONOCYTES # (MANUAL) 2.8 10^3/uL (0.1-1.4); BASOPHILS % (MANUAL) 0 % (0-2); EOSINOPHILS % (MANUAL) 0 % (0-6); LYMPHOCYTES % (MANUAL) 3 % (13-45); MONOCYTES % (MANUAL) 8 % (3-13); SEGMENTED NEUTROPHILS % (MAN) 89 % (42-78); TOTAL CELLS COUNTED 100
[2020-05-25 07:19] LABS: ANISOCYTOSIS 3+; HYPOCHROMASIA SLIGHT; PLATELET COMMENT ADEQUATE; POIKILOCYTOSIS SLIGHT; TARGET CELLS SLIGHT
[2020-05-25] MEDS: CALCIUM CARBONATE 500 MG TAB.CHEW PO SCH ×4 (07:29→22:07)
--- NOTE | 2020-05-25 09:18 | PDOC PROGRESS REPORT ---
Subjective Progress Note for:: 05/25/20 Subjective:: feels ok had some abd cramping yesterday passing stool feels ok this am Reason For Visit: BILIARY OBSTRUCTION S/P SURGERY Physical Exam Vital Signs: Temp Pulse Resp BP Pulse Ox 97.3 F 96 17 130/63 H 97 05/24/20 23:16 05/25/20 06:59 05/24/20 23:16 05/24/20 23:16 05/24/20 23:16 Intake & Output 05/24/20 05/25/20 05/26/20 06:59 06:59 06:59 Intake Total 1780 1740 Output Total 340 40 Balance 1440 1700 Weight 119.6 kg 119.9 kg General appearance: PRESENT: no acute distress Head exam: PRESENT: normocephalic Eye exam: PRESENT: EOMI Mouth exam: PRESENT: moist Teeth exam: PRESENT: poor dentation Neck exam: PRESENT: full ROM Respiratory exam: PRESENT: clear to auscultation winter Cardiovascular exam: PRESENT: RRR Pulses: PRESENT: normal femoral pulses, normal dorsalis pedis pul Vascular exam: PRESENT: normal capillary refill Breast: PRESENT: Normal GI/Abdominal exam: PRESENT: soft Rectal exam: PRESENT: deferred Extremities exam: PRESENT: full ROM, +2 edema Musculoskeletal exam: PRESENT: full ROM Neurological exam: PRESENT: alert, oriented to person, oriented to place, oriented to time, oriented to situation Skin exam: PRESENT: dry Results Laboratory Results: 05/25/20 06:37 05/25/20 06:37 05/24/20 05/24/20 05/25/20 10:47 10:47 06:37 WBC 36.8 H* RBC 3.42 L Hgb 7.9 L Hct 25.9 L MCV 76 L MCH 23.1 L MCHC 30.4 L RDW 26.8 H Plt Count 435 Seg Neutrophils % Not Reportable Sodium 128.0 L 127.8 L Potassium 4.0 3.9 Chloride 102 102 Carbon Dioxide 21 L 20 L Anion Gap 5 6 BUN 22 H 22 H Creatinine 1.64 H 1.62 H Est GFR ( Amer) 40 L 41 L Glucose 80 77 Calcium 7.7 L 8.0 L 05/25/20 06:37 WBC 34.7 H* RBC 3.21 L Hgb 7.6 L Hct 24.6 L MCV 77 L MCH 23.5 L MCHC 30.7 L RDW 25.7 H Plt Count 437 Seg Neutrophils % Not Reportable Sodium Potassium Chloride Carbon Dioxide Anion Gap BUN Creatinine Est GFR ( Amer) Glucose Calcium 05/19/20 14:45 Blood Blood Culture - Final NO GROWTH IN 5 DAYS 05/19/20 14:40 Blood Blood Culture - Final NO GROWTH IN 5 DAYS 05/14/20 05/15/20 15:18 06:45 Troponin I < 0.012 < 0.012 Impressions: Abdomen Ultrasound 05/07/20 04:47 IMPRESSION: 1. Dilation of the common bile duct again identified measuring 1.2 cm. 2. Hepatic steatosis and hepatomegaly. 3. Prior cholecystectomy. PICC Line Insertion 05/14/20 00:00 IMPRESSION: SUCCESSFUL PLACEMENT OF A 5 FR DUAL LUMEN 42 CM PICC IN THE LEFT BASILIC VEIN. Venous Doppler Study 05/16/20 00:00 IMPRESSION: NO EVIDENCE DVT OR SVT IN EITHER LEG. Chest X-Ray 05/22/20 00:00 IMPRESSION: Minimal right basilar airspace disease most likely atelectasis. PICC line has been slightly withdrawn when compared to placement images dated May 14. Catheter tip overlies the innominate vein on the current study. Abdomen/Pelvis CT 05/23/20 00:00 IMPRESSION: No abscess. Decrease in fluid collection adjacent to the drain in the gallbladder fossa. Assessment & Plan - Plan Summary Plan Summary: wbc startng to decrease 34k this am h/h stable creat 1.62, stable abd soft some bilous drainage via deisy plan cont iv abx stool for c-diff (order 2 days ago did not get collected.)
[2020-05-25] MEDS: ZINC SULFATE 220 MG CAPSULE PO SCH (09:26)
[2020-05-25] MEDS: DOCUSATE SODIUM 100 MG CAPSULE PO SCH ×2 (09:26→17:16)
[2020-05-25] MEDS: POLYETHYLENE GLYCOL 3350 POWDER 17 GM/1 PACKET PO SCH (09:26)
[2020-05-25] MEDS: FERROUS SULFATE 325 MG TABLET PO SCH (09:27)
[2020-05-25] MEDS: FOLIC ACID 1 MG TABLET PO SCH (09:27)
[2020-05-25] MEDS: METOPROLOL TARTRATE 25 MG TABLET PO SCH ×2 (09:27→22:07)
[2020-05-25] MEDS: CHOLECALCIFEROL (D3) 1,000 UNIT (25 MCG) TABLET PO SCH (09:27)
[2020-05-25] MEDS: LIDOCAINE 5% (700 MG) TRANSDERMAL ADH..PATCH TP SCH (09:27)
[2020-05-25] MEDS: CYANOCOBALAMIN (VITAMIN B-12) INJ 1000 MCG/1 ML VIAL IM SCH (09:28)
[2020-05-25] MEDS: NORMAL SALINE 10 ML SDV (SCHEDULED) IV SCH ×2 (09:45→22:00)
[2020-05-25] MEDS: NORMAL SALINE 10 ML SDV (AFTER EACH USE) IV PRN ×2 (09:45→18:48)
[2020-05-25] MEDS: ONDANSETRON HCL INJ/PF 4 MG/2 ML SDV IV PRN (10:05)
[2020-05-25] MEDS: LINEZOLID 600 MG/300 ML RTUPB IV SCH (11:46)
[2020-05-25] MEDS: TRAMADOL HCL 50 MG TABLET PO PRN ×2 (12:06→17:38)
--- NOTE | 2020-05-25 14:49 | PDOC PROGRESS REPORT ---
Subjective Progress Note for:: 05/25/20 Subjective:: No specific complaints Reason For Visit: BILIARY OBSTRUCTION S/P SURGERY Physical Exam Vital Signs: Temp Pulse Resp BP Pulse Ox 98.4 F 93 20 102/88 H 100 05/25/20 10:50 05/25/20 10:50 05/25/20 10:50 05/25/20 10:50 05/25/20 10:50 Intake & Output 05/24/20 05/25/20 05/26/20 06:59 06:59 06:59 Intake Total 1780 1740 100 Output Total 340 40 30 Balance 1440 1700 70 Weight 119.6 kg 119.9 kg General appearance: PRESENT: no acute distress, cooperative, obese Head exam: PRESENT: atraumatic, normocephalic Eye exam: PRESENT: scleral icterus Mouth exam: PRESENT: moist, tongue midline Neck exam: ABSENT: JVD Respiratory exam: PRESENT: clear to auscultation winter, decreased breath sounds - Air entry diminished at bases bilaterally, symmetrical, unlabored. ABSENT: accessory muscle use Cardiovascular exam: PRESENT: RRR, +S1, +S2 Pulses: PRESENT: normal radial pulses GI/Abdominal exam: PRESENT: ascites, normal bowel sounds, soft, tenderness - Surgically tender, other - ROSALVA drain intact. Returns more bilious today. ABSENT: rebound, rigid Rectal exam: PRESENT: deferred Extremities exam: PRESENT: pedal edema, other - Anasarca. ABSENT: calf tenderness Neurological exam: PRESENT: alert, awake, oriented to person, oriented to place, oriented to time, oriented to situation, CN II-XII grossly intact Psychiatric exam: PRESENT: appropriate affect, normal mood. ABSENT: agitated, anxious Skin exam: PRESENT: dry, normal color, warm Results Laboratory Results: 05/25/20 06:37 05/25/20 06:37 05/25/20 05/25/20 06:37 06:37 WBC 34.7 H* RBC 3.21 L Hgb 7.6 L Hct 24.6 L MCV 77 L MCH 23.5 L MCHC 30.7 L RDW 25.7 H Plt Count 437 Seg Neutrophils % Not Reportable Sodium 127.8 L Potassium 3.9 Chloride 102 Carbon Dioxide 20 L Anion Gap 6 BUN 22 H Creatinine 1.62 H Est GFR ( Amer) 41 L Glucose 77 Calcium 8.0 L 05/19/20 14:45 Blood Blood Culture - Final NO GROWTH IN 5 DAYS 05/19/20 14:40 Blood Blood Culture - Final NO GROWTH IN 5 DAYS 05/14/20 05/15/20 15:18 06:45 Troponin I < 0.012 < 0.012 Impressions: Abdomen Ultrasound 05/07/20 04:47 IMPRESSION: 1. Dilation of the common bile duct again identified measuring 1.2 cm. 2. Hepatic steatosis and hepatomegaly. 3. Prior cholecystectomy. PICC Line Insertion 05/14/20 00:00 IMPRESSION: SUCCESSFUL PLACEMENT OF A 5 FR DUAL LUMEN 42 CM PICC IN THE LEFT BASILIC VEIN. Venous Doppler Study 05/16/20 00:00 IMPRESSION: NO EVIDENCE DVT OR SVT IN EITHER LEG. Chest X-Ray 05/22/20 00:00 IMPRESSION: Minimal right basilar airspace disease most likely atelectasis. PICC line has been slightly withdrawn when compared to placement images dated May 14. Catheter tip overlies the innominate vein on the current study. Abdomen/Pelvis CT 05/23/20 00:00 IMPRESSION: No abscess. Decrease in fluid collection adjacent to the drain in the gallbladder fossa. Assessment and Plan - Diagnosis (1) Biliary stricture Is this a current diagnosis for this admission?: Yes Plan: Patient s/p exploratory laparotomy with ventral hernia repair, choledochoduo denoscopy, and liver biopsy on 05/09/2020 Continues to have output via ROSALVA drain (likely ascites) as well as drainage around insertion site Surgical management per surgical service (2) Hyperbilirubinemia Is this a current diagnosis for this admission?: Yes Plan: Sclera icteric ROSALVA drain returns darker than previous days Urine elliot Primary management per surgery. CMP not completed today, reordered for a.m. (3) Abnormal liver function test Is this a current diagnosis for this admission?: Yes Plan: As noted above (4) Elevated lipase Is this a current diagnosis for this admission?: Yes Plan: Patient known to have chronic pancreatitis Patient does not have abdominal pain Diet management per surgical service (5) Acute postoperative pain Is this a current diagnosis for this admission?: Yes Plan: Adequate pain control (6) H/O gastric bypass Is this a current diagnosis for this admission?: Yes Plan: Patient has noted vitamin deficiencies Continue ferrous sulfate 325 mg p.o. daily Continue calcium carbonate 500 mg p.o. 3 times daily with meals Continue cyanocobalamin 1000 mcg IM daily Continue folic acid 1 mg p.o. daily Continue vitamin D 1000 units p.o. daily Zinc level low at 34 Continue zinc sulfate 220 mg p.o. daily Copper level still pending (7) Leukocytosis Is this a current diagnosis for this admission?: Yes Plan: ID input appreciated WBC continues to trend down since initiation of metronidazole Repeat CT of the abdomen/pelvis revealed no abscess and decrease in fluid collection adjacent to the drain in the gallbladder fossa Urine culture 05/19/2020: VRE, thought to be asymptomatic bacteriuria by ID - stop linezolid Blood cultures 05/19/2020 NG at 5 days Stool sent for C. difficile results still pending Continue metronidazole 500 mg IV every 8 hours for now (8) UTI (urinary tract infection) Is this a current diagnosis for this admission?: Yes Plan: ID feels that this is asymptomatic bacteriuria and recommends stopping antibiotics which was done (9) Chronic iron deficiency anemia Is this a current diagnosis for this admission?: Yes Plan: Patient received 300 mg dose of iron sucrose on 05/09/2020 Patient has received total of 4 units PRBCs during current hospitalization Patient had an almost 1 g drop in hemoglobin over past 24 hours, will need to monitor Continue iron supplementation as noted above Will need close outpatient follow-up (10) Heme positive stool Is this a current diagnosis for this admission?: Yes Plan: Continue pantoprazole 40 mg p.o. daily No liana signs of GI hemorrhage (hematochezia/melena) It is unclear how much of patient's anemia was due to GI loss, surgical losses, or hemodilution Patient will need outpatient endoscopy (11) Hypokalemia Is this a current diagnosis for this admission?: Yes Plan: Serum potassium remains WNL Monitor and replete PRN (12) KEERTHI (acute kidney injury) Is this a current diagnosis for this admission?: Yes Plan: Minimal improvement in renal function today Likely prerenal Start albumin 12.5 g IV every 8 hours Continue to avoid nephrotoxins Monitor (13) Hyponatremia Is this a current diagnosis for this admission?: Yes Plan: Serum sodium slowly trending down Likely dilutional Patient remains asymptomatic Continue to monitor - Time Time Spent with patient: 25-34 minutes Medications reviewed and adjusted accordingly: Yes Anticipated Discharge Disposition: Home, Self Care Anticipated Discharge: Other
[2020-05-25 16:24] LABS: C DIFFICILE GDH NEGATIVE (NEGATIVE)
[2020-05-25] MEDS: ALBUMIN HUMAN 12.5 GM/50 ML RTUINJ IV SCH (17:24)
[2020-05-26] MEDS: ALBUMIN HUMAN 12.5 GM/50 ML RTUINJ IV SCH ×3 (00:06→17:43)
[2020-05-26] MEDS: TRAMADOL HCL 50 MG TABLET PO PRN ×2 (01:02→16:17)
[2020-05-26] MEDS: ONDANSETRON HCL INJ/PF 4 MG/2 ML SDV IV PRN ×2 (01:02→09:55)
[2020-05-26] MEDS: METRONIDAZOLE 500 MG/NS RTU 500 MG/100 ML RTUPB IV SCH ×3 (02:00→17:43)
[2020-05-26] MEDS: PANTOPRAZOLE SODIUM 40 MG TABLET.DR PO SCH (06:24)
[2020-05-26 06:56] LABS: HEMATOCRIT 21.7 % (36.0-47.0); MEAN CORPUSCULAR HEMOGLOBIN 23.9 pg (27.0-33.4); MEAN CORPUSCULAR HGB CONC 31.1 g/dL (32.0-36.0); MEAN CORPUSCULAR VOLUME 77 fl (80-97); PLATELET COUNT 345 10^3/uL (150-450); RED BLOOD COUNT 2.82 10^6/uL (3.72-5.28); RED CELL DISTRIBUTION WIDTH 24.8 % (11.5-14.0)
[2020-05-26 07:15] LABS: ALBUMIN 1.8 g/dL (3.5-5.0); ALKALINE PHOSPHATASE 149 U/L (38-126); ANION GAP 6 (5-19); ASPARTATE AMINO TRANSFERASE 97 U/L (14-36); BILIRUBIN,DIRECT 1.7 mg/dL (0.0-0.4); BILIRUBIN,TOTAL 2.8 mg/dL (0.2-1.3); BLOOD UREA NITROGEN 22 mg/dL (7-20); CARBON DIOXIDE 19 mmol/L (22-30); CHLORIDE 103 mmol/L (98-107); TOTAL PROTEIN 5.1 g/dL (6.3-8.2)
[2020-05-26 07:24] LABS: GLUCOSE 67 mg/dL (75-110)
[2020-05-26 07:45] LABS: ABSOLUTE MONOCYTES # (MANUAL) 0.3 10^3/uL (0.1-1.4); BASOPHILS % (MANUAL) 0 % (0-2); EOSINOPHILS % (MANUAL) 0 % (0-6); LYMPHOCYTES % (MANUAL) 3 % (13-45); MONOCYTES % (MANUAL) 1 % (3-13); SEGMENTED NEUTROPHILS % (MAN) 96 % (42-78); TOTAL CELLS COUNTED 100
[2020-05-26 07:46] LABS: ANISOCYTOSIS 3+; HYPOCHROMASIA SLIGHT
[2020-05-26 07:47] LABS: PLATELET CLUMPS PRESENT; PLATELET COMMENT ADEQUATE; TARGET CELLS SLIGHT
[2020-05-26 07:52] LABS: HEMOGLOBIN 6.7 g/dL (12.0-15.5); WHITE BLOOD COUNT 32.1 10^3/uL (4.0-10.5)
--- NOTE | 2020-05-26 08:07 | PDOC PROGRESS REPORT ---
Subjective Progress Note for:: 05/26/20 Subjective:: feels ok passing stool barbara reg diet no complaints. Reason For Visit: BILIARY OBSTRUCTION S/P SURGERY Physical Exam Vital Signs: Temp Pulse Resp BP Pulse Ox 97.3 F 102 H 18 109/58 L 100 05/26/20 00:00 05/26/20 07:00 05/26/20 00:00 05/26/20 00:00 05/26/20 00:00 Intake & Output 05/25/20 05/26/20 05/27/20 06:59 06:59 06:59 Intake Total 1740 1270 Output Total 40 130 Balance 1700 1140 Weight 119.9 kg 118.1 kg General appearance: PRESENT: no acute distress Head exam: PRESENT: normocephalic Eye exam: PRESENT: EOMI Mouth exam: PRESENT: moist Teeth exam: PRESENT: poor dentation Neck exam: PRESENT: full ROM Respiratory exam: PRESENT: clear to auscultation winter Cardiovascular exam: PRESENT: RRR Pulses: PRESENT: +1 pedal pulses bilateral, +2 pedal pulses bilateral GI/Abdominal exam: PRESENT: other - abd soft deisy drain now bilous. Rectal exam: PRESENT: deferred Extremities exam: PRESENT: full ROM Musculoskeletal exam: PRESENT: full ROM Neurological exam: PRESENT: alert, oriented to person, oriented to place Psychiatric exam: PRESENT: appropriate affect Skin exam: PRESENT: dry Results Laboratory Results: 05/26/20 06:30 05/26/20 06:30 05/26/20 05/26/20 06:30 06:30 WBC 32.1 H* RBC 2.82 L Hgb 6.7 L Hct 21.7 L MCV 77 L MCH 23.9 L MCHC 31.1 L RDW 24.8 H Plt Count 345 Seg Neutrophils % Not Reportable Sodium 127.5 L Potassium 4.0 Chloride 103 Carbon Dioxide 19 L Anion Gap 6 BUN 22 H Creatinine 1.53 H Est GFR ( Amer) 43 L Glucose 67 L Calcium 8.0 L Total Bilirubin 2.8 H AST 97 H Alkaline Phosphatase 149 H Total Protein 5.1 L Albumin 1.8 L 05/14/20 05/15/20 15:18 06:45 Troponin I < 0.012 < 0.012 Impressions: Abdomen Ultrasound 05/07/20 04:47 IMPRESSION: 1. Dilation of the common bile duct again identified measuring 1.2 cm. 2. Hepatic steatosis and hepatomegaly. 3. Prior cholecystectomy. PICC Line Insertion 05/14/20 00:00 IMPRESSION: SUCCESSFUL PLACEMENT OF A 5 FR DUAL LUMEN 42 CM PICC IN THE LEFT BASILIC VEIN. Venous Doppler Study 05/16/20 00:00 IMPRESSION: NO EVIDENCE DVT OR SVT IN EITHER LEG. Chest X-Ray 05/22/20 00:00 IMPRESSION: Minimal right basilar airspace disease most likely atelectasis. PICC line has been slightly withdrawn when compared to placement images dated May 14. Catheter tip overlies the innominate vein on the current study. Abdomen/Pelvis CT 05/23/20 00:00 IMPRESSION: No abscess. Decrease in fluid collection adjacent to the drain in the gallbladder fossa. Assessment & Plan - Plan Summary Plan Summary: pt cont to improve wbc drop however h/h trending down despite no source oif bleeding will repeat today may need txn bilous op from deisy concerning this far out of surgery will obtain hida scan in am.
[2020-05-26] MEDS: CALCIUM CARBONATE 500 MG TAB.CHEW PO SCH ×4 (08:17→22:00)
[2020-05-26] MEDS: POLYETHYLENE GLYCOL 3350 POWDER 17 GM/1 PACKET PO SCH (09:37)
[2020-05-26] MEDS: DOCUSATE SODIUM 100 MG CAPSULE PO SCH ×2 (09:37→17:40)
[2020-05-26] MEDS: FERROUS SULFATE 325 MG TABLET PO SCH (09:40)
[2020-05-26] MEDS: FOLIC ACID 1 MG TABLET PO SCH (09:41)
[2020-05-26] MEDS: ZINC SULFATE 220 MG CAPSULE PO SCH (09:41)
[2020-05-26] MEDS: CHOLECALCIFEROL (D3) 1,000 UNIT (25 MCG) TABLET PO SCH (09:41)
[2020-05-26] MEDS: CYANOCOBALAMIN (VITAMIN B-12) INJ 1000 MCG/1 ML VIAL IM SCH (09:41)
[2020-05-26] MEDS: LIDOCAINE 5% (700 MG) TRANSDERMAL ADH..PATCH TP SCH (09:42)
[2020-05-26] MEDS: NORMAL SALINE 10 ML SDV (SCHEDULED) IV SCH ×2 (09:43→22:00)
[2020-05-26] MEDS: METOPROLOL TARTRATE 25 MG TABLET PO SCH ×2 (09:43→22:00)
[2020-05-26] MEDS ORDERED: NORMAL SALINE 250 ML IV PRN ×2 (22:35)
[2020-05-26] MEDS ORDERED: NORMAL SALINE 1000 ML 1,000 ML IV PRN (22:54)
--- NOTE | 2020-05-26 22:55 | PDOC PROGRESS REPORT ---
Subjective Progress Note for:: 05/26/20 Subjective:: Patient states that she feels "okay" affect slightly depressed today Reason For Visit: BILIARY OBSTRUCTION S/P SURGERY Physical Exam Vital Signs: Temp Pulse Resp BP Pulse Ox 97.3 F 115 H 18 121/83 100 05/26/20 20:38 05/26/20 20:38 05/26/20 20:38 05/26/20 20:38 05/26/20 20:38 Intake & Output 05/25/20 05/26/20 05/27/20 06:59 06:59 06:59 Intake Total 1740 1270 1020 Output Total 40 130 300 Balance 1700 1140 720 Weight 119.9 kg 118.1 kg General appearance: PRESENT: no acute distress, obese Head exam: PRESENT: atraumatic, normocephalic Eye exam: PRESENT: scleral icterus Mouth exam: PRESENT: moist, tongue midline Respiratory exam: PRESENT: clear to auscultation winter, decreased breath sounds - Entry diminished at bases bilaterally, symmetrical, unlabored Cardiovascular exam: PRESENT: RRR, +S1, +S2 Vascular exam: PRESENT: normal capillary refill GI/Abdominal exam: PRESENT: ascites, normal bowel sounds, soft, tenderness - Surgically tender, other - ROSALVA drain continues to have large amounts of bilious returns Rectal exam: PRESENT: deferred Extremities exam: PRESENT: other - Anasarca. ABSENT: calf tenderness Neurological exam: PRESENT: alert, awake, oriented to person, oriented to place, oriented to time, oriented to situation, CN II-XII grossly intact Psychiatric exam: PRESENT: depressed - Depressed affect today. ABSENT: agitated, anxious Skin exam: PRESENT: dry, normal color, warm Results Laboratory Results: 05/26/20 06:30 05/26/20 06:30 05/26/20 05/26/20 06:30 06:30 WBC 32.1 H* RBC 2.82 L Hgb 6.7 L Hct 21.7 L MCV 77 L MCH 23.9 L MCHC 31.1 L RDW 24.8 H Plt Count 345 Seg Neutrophils % Not Reportable Sodium 127.5 L Potassium 4.0 Chloride 103 Carbon Dioxide 19 L Anion Gap 6 BUN 22 H Creatinine 1.53 H Est GFR ( Amer) 43 L Glucose 67 L Calcium 8.0 L Total Bilirubin 2.8 H AST 97 H Alkaline Phosphatase 149 H Total Protein 5.1 L Albumin 1.8 L 05/14/20 05/15/20 15:18 06:45 Troponin I < 0.012 < 0.012 Impressions: Abdomen Ultrasound 05/07/20 04:47 IMPRESSION: 1. Dilation of the common bile duct again identified measuring 1.2 cm. 2. Hepatic steatosis and hepatomegaly. 3. Prior cholecystectomy. PICC Line Insertion 05/14/20 00:00 IMPRESSION: SUCCESSFUL PLACEMENT OF A 5 FR DUAL LUMEN 42 CM PICC IN THE LEFT BASILIC VEIN. Venous Doppler Study 05/16/20 00:00 IMPRESSION: NO EVIDENCE DVT OR SVT IN EITHER LEG. Chest X-Ray 05/22/20 00:00 IMPRESSION: Minimal right basilar airspace disease most likely atelectasis. PICC line has been slightly withdrawn when compared to placement images dated May 14. Catheter tip overlies the innominate vein on the current study. Abdomen/Pelvis CT 05/23/20 00:00 IMPRESSION: No abscess. Decrease in fluid collection adjacent to the drain in the gallbladder fossa. Assessment and Plan - Diagnosis (1) Biliary stricture Is this a current diagnosis for this admission?: Yes Plan: Patient s/p exploratory laparotomy with ventral hernia repair, choledochoduodenoscopy, and liver biopsy on 05/09/2020 Continues to have output via ROSALVA drain (likely ascites) as well as drainage around insertion site Surgical management per surgical service (2) Hyperbilirubinemia Is this a current diagnosis for this admission?: Yes Plan: Total and direct bilirubin continue to rise Sclera icteric ROSALVA drain returns bilious Urine elliot Primary management per surgery. (3) Abnormal liver function test Is this a current diagnosis for this admission?: Yes Plan: As noted above (4) Elevated lipase Is this a current diagnosis for this admission?: Yes Plan: Patient known to have chronic pancreatitis Patient does not have abdominal pain Diet management per surgical service Check surveillance lipase in a.m. (5) Acute postoperative pain Is this a current diagnosis for this admission?: Yes Plan: Adequate pain control (6) H/O gastric bypass Is this a current diagnosis for this admission?: Yes Plan: Patient has noted vitamin deficiencies Continue ferrous sulfate 325 mg p.o. daily Continue calcium carbonate 500 mg p.o. 3 times daily with meals Continue cyanocobalamin 1000 mcg IM daily Continue folic acid 1 mg p.o. daily Continue vitamin D 1000 units p.o. daily Zinc level low at 34 Continue zinc sulfate 220 mg p.o. daily Copper level still pending (7) Leukocytosis Is this a current diagnosis for this admission?: Yes Plan: ID input appreciated WBC continues to trend down since initiation of metronidazole Repeat CT of the abdomen/pelvis revealed no abscess and decrease in fluid collection adjacent to the drain in the gallbladder fossa Urine culture 05/19/2020: VRE, thought to be asymptomatic bacteriuria by ID - stop linezolid Blood cultures 05/19/2020 NG at 5 days Stool for C. difficile negative Continue metronidazole 500 mg IV every 8 hours for now (8) UTI (urinary tract infection) Is this a current diagnosis for this admission?: Yes Plan: ID feels that this is asymptomatic bacteriuria and recommends stopping antibio tics which was done (9) Chronic iron deficiency anemia Is this a current diagnosis for this admission?: Yes Plan: Hgb down to 6.7, transfuse 1 unit PRBCs Patient received 300 mg dose of iron sucrose on 05/09/2020 Patient has received total of 4 units PRBCs during current hospitalization so far Continue iron supplementation as noted above Will need close outpatient follow-up (10) Heme positive stool Is this a current diagnosis for this admission?: Yes Plan: Change pantoprazole to IV and increase to 40 mg twice daily No liana signs of GI hemorrhage (hematochezia/melena) Patient will need outpatient endoscopy (11) Hypokalemia Is this a current diagnosis for this admission?: Yes Plan: Serum potassium remains WNL Monitor and replete PRN (12) KEERTHI (acute kidney injury) Is this a current diagnosis for this admission?: Yes Plan: There is continued minimal improvement in renal function Likely prerenal Continue albumin 12.5 g IV every 8 hours Continue to avoid nephrotoxins Monitor (13) Hyponatremia Is this a current diagnosis for this admission?: Yes Plan: Serum sodium slowly trending down Will start NS at 100 cc/h Continue to monitor - Time Time Spent with patient: 25-34 minutes Medications reviewed and adjusted accordingly: Yes Anticipated Discharge Disposition: Intermediate Care Facility Anticipated Discharge: Other
[2020-05-27] MEDS: ALBUMIN HUMAN 12.5 GM/50 ML RTUINJ IV SCH ×3 (01:10→17:43)
[2020-05-27] MEDS: METRONIDAZOLE 500 MG/NS RTU 500 MG/100 ML RTUPB IV SCH ×2 (03:01→13:17)
[2020-05-27] MEDS: PANTOPRAZOLE SODIUM 40 MG VIAL IV SCH ×3 (03:01→21:08)
[2020-05-27] MEDS: CALCIUM CARBONATE 500 MG TAB.CHEW PO SCH ×4 (08:38→21:09)
[2020-05-27] MEDS: TRAMADOL HCL 50 MG TABLET PO PRN ×3 (10:42→20:18)
--- NOTE | 2020-05-27 13:06 | RADIOLOGY REPORT (SQ) ---
EXAM DESCRIPTION: NM HIDA SCAN IMAGES COMPLETED DATE/TIME: 05/27/2020 12:55 pm REASON FOR STUDY: abd pain, low hgb, elevated white count COMPARISON: CT dated 05/23/2020 RADIONUCLIDE AND DOSE: DOSAGE RADIONUCLIDE: 5.31 millicuries Tc99m Mebrofenin. DOSAGE MORPHINE: Not required. The route of agent administration: Intravenous TECHNIQUE: Serial imaging right upper quadrant up to 60 minutes following injection of radionuclide. Patient imaged AP and Right Lateral. LIMITATIONS: None. FINDINGS: LIVER: Normal visualization without areas of photopenia. INTRA-HEPATIC BILE DUCTS: Temporal visualization normal. No dilatation. COMMON BILE DUCT: Normal without dilatation or delayed visualization. GALLBLADDER: Prior cholecystectomy. OTHER: No evidence of bile leak. IMPRESSION: Prior cholecystectomy. No evidence of bile leak. TECHNICAL DOCUMENTATION: JOB ID: [id number] 2010 [employer] All Rights Reserved Reading location - IP/workstation name: [email or web address]
[2020-05-27] MEDS: POLYETHYLENE GLYCOL 3350 POWDER 17 GM/1 PACKET PO SCH (13:12)
[2020-05-27] MEDS: DOCUSATE SODIUM 100 MG CAPSULE PO SCH ×2 (13:13→17:43)
[2020-05-27] MEDS: ONDANSETRON HCL INJ/PF 4 MG/2 ML SDV IV PRN ×2 (13:17→20:18)
[2020-05-27] MEDS: FERROUS SULFATE 325 MG TABLET PO SCH (13:18)
[2020-05-27] MEDS: CHOLECALCIFEROL (D3) 1,000 UNIT (25 MCG) TABLET PO SCH (13:23)
[2020-05-27] MEDS: FOLIC ACID 1 MG TABLET PO SCH (13:23)
[2020-05-27] MEDS: METOPROLOL TARTRATE 25 MG TABLET PO SCH ×2 (13:23→21:08)
[2020-05-27] MEDS: LIDOCAINE 5% (700 MG) TRANSDERMAL ADH..PATCH TP SCH (13:26)
[2020-05-27] MEDS: NORMAL SALINE 10 ML SDV (SCHEDULED) IV SCH ×2 (13:34→21:28)
[2020-05-27] MEDS: CYANOCOBALAMIN (VITAMIN B-12) INJ 1000 MCG/1 ML VIAL IM SCH (13:42)
[2020-05-27] MEDS: ZINC SULFATE 220 MG CAPSULE PO SCH (13:42)
--- NOTE | 2020-05-27 14:16 | PDOC PROGRESS REPORT ---
Subjective Progress Note for:: 05/27/20 Reason For Visit: BILIARY OBSTRUCTION S/P SURGERY Physical Exam Vital Signs: Temp Pulse Resp BP Pulse Ox 97.6 F 116 H 16 120/68 100 05/27/20 08:00 05/27/20 13:36 05/27/20 08:00 05/27/20 08:00 05/27/20 08:00 Intake & Output 05/26/20 05/27/20 05/28/20 06:59 06:59 06:59 Intake Total 1270 1420 Output Total 130 540 Balance 1140 880 Weight 118.1 kg 118.9 kg General appearance: PRESENT: no acute distress Head exam: PRESENT: normocephalic Eye exam: PRESENT: EOMI Mouth exam: PRESENT: moist Teeth exam: PRESENT: poor dentation Neck exam: PRESENT: full ROM Respiratory exam: PRESENT: clear to auscultation winter Cardiovascular exam: PRESENT: RRR Pulses: PRESENT: normal radial pulses, normal femoral pulses Vascular exam: PRESENT: normal capillary refill Breast: PRESENT: Normal GI/Abdominal exam: PRESENT: soft, other - deisy bulb with bile in it. Rectal exam: PRESENT: deferred Extremities exam: PRESENT: full ROM Musculoskeletal exam: PRESENT: full ROM Neurological exam: PRESENT: alert, oriented to person, oriented to place Psychiatric exam: PRESENT: appropriate affect Skin exam: PRESENT: dry Results Laboratory Results: 05/26/20 06:30 05/26/20 06:30 05/26/20 23:52 Blood Type AB POSITIVE Antibody Screen NEGATIVE 05/14/20 05/15/20 15:18 06:45 Troponin I < 0.012 < 0.012 Impressions: Abdomen Ultrasound 05/07/20 04:47 IMPRESSION: 1. Dilation of the common bile duct again identified measuring 1.2 cm. 2. Hepatic steatosis and hepatomegaly. 3. Prior cholecystectomy. PICC Line Insertion 05/14/20 00:00 IMPRESSION: SUCCESSFUL PLACEMENT OF A 5 FR DUAL LUMEN 42 CM PICC IN THE LEFT BASILIC VEIN. Venous Doppler Study 05/16/20 00:00 IMPRESSION: NO EVIDENCE DVT OR SVT IN EITHER LEG. Chest X-Ray 05/22/20 00:00 IMPRESSION: Minimal right basilar airspace disease most likely atelectasis. PICC line has been slightly withdrawn when compared to placement images dated May 14. Catheter tip overlies the innominate vein on the current study. Abdomen/Pelvis CT 05/23/20 00:00 IMPRESSION: No abscess. Decrease in fluid collection adjacent to the drain in the gallbladder fossa. Hepatobiliary Scan Nuclear Medicine 05/27/20 08:17 IMPRESSION: Prior cholecystectomy. No evidence of bile leak. Assessment & Plan - Plan Summary Plan Summary: pt comfortable no labs today, although discussed iw nursing 3 times and they said they were drawn, still have not seen them hida scan done, reported as no leak, although there is liana bile in the deisy bulb. otherwise pt is stable will discusse hida scan with radiologist may need a repeat.
--- NOTE | 2020-05-27 14:49 | PDOC PROGRESS REPORT ---
Subjective Progress Note for:: 05/27/20 Subjective:: Patient complaining of increased abdominal pain today. She states that it is related to being turned in bed and having pressure placed on her incision Reason For Visit: BILIARY OBSTRUCTION S/P SURGERY Physical Exam Vital Signs: Temp Pulse Resp BP Pulse Ox 97.6 F 116 H 16 120/68 100 05/27/20 08:00 05/27/20 13:36 05/27/20 08:00 05/27/20 08:00 05/27/20 08:00 Intake & Output 05/26/20 05/27/20 05/28/20 06:59 06:59 06:59 Intake Total 1270 1420 Output Total 130 540 Balance 1140 880 Weight 118.1 kg 118.9 kg General appearance: PRESENT: no acute distress, cooperative, obese Head exam: PRESENT: atraumatic, normocephalic Eye exam: PRESENT: scleral icterus - Minimal scleral icterus. ABSENT: nystagmus Mouth exam: PRESENT: moist, tongue midline Neck exam: ABSENT: JVD Respiratory exam: PRESENT: clear to auscultation winter, decreased breath sounds - Air entry diminished at bases bilaterally, symmetrical. ABSENT: accessory muscle use, unlabored Cardiovascular exam: PRESENT: RRR, +S1, +S2 Pulses: PRESENT: normal radial pulses, other Vascular exam: PRESENT: normal capillary refill GI/Abdominal exam: PRESENT: ascites, normal bowel sounds, soft, tenderness - Surgically tender. ABSENT: rebound Rectal exam: PRESENT: deferred Extremities exam: PRESENT: other - Anasarca. ABSENT: calf tenderness Neurological exam: PRESENT: alert, altered, oriented to person, oriented to place, oriented to time, oriented to situation, CN II-XII grossly intact Psychiatric exam: PRESENT: depressed - Slightly depressed affect. ABSENT: agitated, anxious Skin exam: PRESENT: dry, normal color, warm Results Laboratory Results: 05/26/20 23:52 Blood Type AB POSITIVE Antibody Screen NEGATIVE 05/14/20 05/15/20 15:18 06:45 Troponin I < 0.012 < 0.012 Impressions: Abdomen Ultrasound 05/07/20 04:47 IMPRESSION: 1. Dilation of the common bile duct again identified measuring 1.2 cm. 2. Hepatic steatosis and hepatomegaly. 3. Prior cholecystectomy. PICC Line Insertion 05/14/20 00:00 IMPRESSION: SUCCESSFUL PLACEMENT OF A 5 FR DUAL LUMEN 42 CM PICC IN THE LEFT BASILIC VEIN. Venous Doppler Study 05/16/20 00:00 IMPRESSION: NO EVIDENCE DVT OR SVT IN EITHER LEG. Chest X-Ray 05/22/20 00:00 IMPRESSION: Minimal right basilar airspace disease most likely atelectasis. PICC line has been slightly withdrawn when compared to placement images dated May 14. Catheter tip overlies the innominate vein on the current study. Abdomen/Pelvis CT 05/23/20 00:00 IMPRESSION: No abscess. Decrease in fluid collection adjacent to the drain in the gallbladder fossa. Hepatobiliary Scan Nuclear Medicine 05/27/20 08:17 IMPRESSION: Prior cholecystectomy. No evidence of bile leak. Assessment and Plan - Diagnosis (1) Biliary stricture Is this a current diagnosis for this admission?: Yes Plan: Patient s/p exploratory laparotomy with ventral hernia repair, choledochoduodenoscopy, and liver biopsy on 05/09/2020 Continues to have output via ROSALVA drain (likely ascites) as well as drainage around insertion site Patient had a hepatobiliary scan today with no evidence of bile leak Surgical management per surgical service (2) Hyperbilirubinemia Is this a current diagnosis for this admission?: Yes Plan: Total and direct bilirubin continue to rise, labs pending from this a.m. - requested nurse to redraw Minimal scleral icterus ROSALVA drain returns bilious Urine less elliot today than yesterday Primary management per surgery. (3) Abnormal liver function test Is this a current diagnosis for this admission?: Yes Plan: As noted above (4) Elevated lipase Is this a current diagnosis for this admission?: Yes Plan: Patient known to have chronic pancreatitis Patient does not have abdominal pain Diet management per surgical service Labs unavailable (5) Acute postoperative pain Is this a current diagnosis for this admission?: Yes Plan: Adequate pain control (6) H/O gastric bypass Is this a current diagnosis for this admission?: Yes Plan: Patient has noted vitamin deficiencies Continue ferrous sulfate 325 mg p.o. daily Continue calcium carbonate 500 mg p.o. 3 times daily with meals Continue cyanocobalamin 1000 mcg IM daily Continue folic acid 1 mg p.o. daily Continue vitamin D 1000 units p.o. daily Zinc level low at 34 Continue zinc sulfate 220 mg p.o. daily Copper level still pending (7) Leukocytosis Is this a current diagnosis for this admission?: Yes Plan: ID input appreciated CBC unavailable at this time Repeat CT of the abdomen/pelvis revealed no abscess and decrease in fluid collection adjacent to the drain in the gallbladder fossa Urine culture 05/19/2020: VRE, thought to be asymptomatic bacteriuria by ID - stop linezolid Blood cultures 05/19/2020 NG at 5 days Stool for C. difficile negative Stop metronidazole and follow patient clinically (8) UTI (urinary tract infection) Is this a current diagnosis for this admission?: Yes Plan: ID feels that this is asymptomatic bacteriuria and recommends stopping antibiotics which was done (9) Chronic iron deficiency anemia Is this a current diagnosis for this admission?: Yes Plan: Hgb down to 6.7 on 12/27/19 and patient transfused 1 unit PRBCs, morning labs not processed Patient received 300 mg dose of iron sucrose on 05/09/2020 Patient has received total of 4 units PRBCs during current hospitalization so far Continue iron supplementation as noted above Will need close outpatient follow-up (10) Heme positive stool Is this a current diagnosis for this admission?: Yes Plan: Continue pantoprazole 40 mg twice daily No liana signs of GI hemorrhage (hematochezia/melena) Patient continues to have drop in H/H may need to consider endoscopy while inpatient (11) Hypokalemia Is this a current diagnosis for this admission?: Yes Plan: A.M. labs unavailable Monitor and replete PRN (12) KEERTHI (acute kidney injury) Is this a current diagnosis for this admission?: Yes Plan: Awaiting morning labs Consult nephrology for KEERTHI/hyponatremia Continue albumin 12.5 g IV every 8 hours Continue to avoid nephrotoxins Monitor (13) Hyponatremia Is this a current diagnosis for this admission?: Yes Plan: Given persistent hyponatremia with downward trend, will consult nephrology NS ordered on 05/26/2020 not started Continue to monitor - Time Time Spent with patient: 25-34 minutes Medications reviewed and adjusted accordingly: Yes Anticipated Discharge Disposition: Intermediate Care Facility Anticipated Discharge: Other
[2020-05-27 14:50] LABS: HEMATOCRIT 26.8 % (36.0-47.0); HEMOGLOBIN 8.5 g/dL (12.0-15.5); MEAN CORPUSCULAR HEMOGLOBIN 25.1 pg (27.0-33.4); MEAN CORPUSCULAR HGB CONC 31.6 g/dL (32.0-36.0); MEAN CORPUSCULAR VOLUME 80 fl (80-97); PLATELET COUNT 303 10^3/uL (150-450); RED BLOOD COUNT 3.37 10^6/uL (3.72-5.28); RED CELL DISTRIBUTION WIDTH 23.6 % (11.5-14.0)
[2020-05-27 15:05] LABS: ALBUMIN 2.2 g/dL (3.5-5.0); ALKALINE PHOSPHATASE 125 U/L (38-126); ANION GAP 11 (5-19); ASPARTATE AMINO TRANSFERASE 105 U/L (14-36); BILIRUBIN,DIRECT 3.3 mg/dL (0.0-0.4); BILIRUBIN,TOTAL 5.2 mg/dL (0.2-1.3); BLOOD UREA NITROGEN 18 mg/dL (7-20); CALCIUM 7.7 mg/dL (8.4-10.2); CARBON DIOXIDE 16 mmol/L (22-30); CHLORIDE 103 mmol/L (98-107); POTASSIUM 4.3 mmol/L (3.6-5.0); TOTAL PROTEIN 5.4 g/dL (6.3-8.2)
[2020-05-27 15:20] LABS: WHITE BLOOD COUNT 33.9 10^3/uL (4.0-10.5)
[2020-05-27 15:22] LABS: GLUCOSE 50 mg/dL (75-110)
[2020-05-27] MEDS: MORPHINE SULFATE 10 MG/ML INJ IV PRN (21:08)
[2020-05-28] MEDS: ALBUMIN HUMAN 12.5 GM/50 ML RTUINJ IV SCH ×3 (00:07→18:13)
[2020-05-28 08:13] LABS: HEMOGLOBIN 8.4 g/dL (12.0-15.5); MEAN CORPUSCULAR HEMOGLOBIN 24.7 pg (27.0-33.4); MEAN CORPUSCULAR HGB CONC 31.1 g/dL (32.0-36.0); MEAN CORPUSCULAR VOLUME 80 fl (80-97); PLATELET COUNT 296 10^3/uL (150-450); RED CELL DISTRIBUTION WIDTH 23.8 % (11.5-14.0)
[2020-05-28 08:24] LABS: ALBUMIN 2.1 g/dL (3.5-5.0); ALKALINE PHOSPHATASE 101 U/L (38-126); ANION GAP 11 (5-19); ASPARTATE AMINO TRANSFERASE 120 U/L (14-36); BILIRUBIN,DIRECT 3.5 mg/dL (0.0-0.4); BILIRUBIN,TOTAL 5.1 mg/dL (0.2-1.3); BLOOD UREA NITROGEN 21 mg/dL (7-20); CALCIUM 8.7 mg/dL (8.4-10.2); CARBON DIOXIDE 15 mmol/L (22-30); CHLORIDE 105 mmol/L (98-107); TOTAL PROTEIN 5.7 g/dL (6.3-8.2)
[2020-05-28 08:34] LABS: GLUCOSE 41 mg/dL (75-110)
[2020-05-28] MEDS ORDERED: MORPHINE SULFATE 10 MG/ML INJ IV PRN (08:37)
[2020-05-28 08:55] LABS: WHITE BLOOD COUNT 34.2 10^3/uL (4.0-10.5)
[2020-05-28 09:01] LABS: ABSOLUTE LYMPHOCYTES# (MANUAL) 0.7 10^3/uL (0.5-4.7); BASOPHILS % (MANUAL) 0 % (0-2); EOSINOPHILS % (MANUAL) 0 % (0-6); LYMPHOCYTES % (MANUAL) 2 % (13-45); MONOCYTES % (MANUAL) 3 % (3-13); SEGMENTED NEUTROPHILS % (MAN) 95 % (42-78); TOTAL CELLS COUNTED 100
[2020-05-28 09:02] LABS: ANISOCYTOSIS 3+; POIKILOCYTOSIS SLIGHT; TARGET CELLS SLIGHT
[2020-05-28 09:03] LABS: HYPERSEGMENTED NEUTROPHILS PRESENT; HYPOCHROMASIA SLIGHT; PLATELET COMMENT ADEQUATE
[2020-05-28] MEDS ORDERED: DEXTROSE 50%-WATER 25 GM/50 ML DISP.SYRIN IV ONE (09:19)
[2020-05-28] MEDS: CALCIUM CARBONATE 500 MG TAB.CHEW PO SCH ×4 (09:21→22:43)
--- NOTE | 2020-05-28 09:33 | PDOC PROGRESS REPORT ---
Subjective Progress Note for:: 05/28/20 Subjective:: afeb vss appears dry, with dry mucous membranes. Reason For Visit: BILIARY OBSTRUCTION S/P SURGERY Physical Exam Vital Signs: Temp Pulse Resp BP Pulse Ox 98.1 F 104 H 20 94/45 L 100 05/27/20 23:56 05/28/20 07:00 05/28/20 05:49 05/28/20 05:49 05/28/20 05:49 Intake & Output 05/27/20 05/28/20 05/29/20 06:59 06:59 06:59 Intake Total 1420 1250 Output Total 540 415 Balance 880 835 Weight 118.9 kg 118.9 kg General appearance: PRESENT: no acute distress Head exam: PRESENT: normocephalic Eye exam: PRESENT: EOMI Mouth exam: PRESENT: moist Teeth exam: PRESENT: poor dentation Neck exam: PRESENT: full ROM Respiratory exam: PRESENT: clear to auscultation winter Cardiovascular exam: PRESENT: RRR Pulses: PRESENT: normal radial pulses, normal femoral pulses, normal dorsalis pedis pul Vascular exam: PRESENT: normal capillary refill Breast: PRESENT: Normal GI/Abdominal exam: PRESENT: soft, other - deisy with ascitic fluid Rectal exam: PRESENT: deferred Extremities exam: PRESENT: full ROM Musculoskeletal exam: PRESENT: full ROM Neurological exam: PRESENT: alert, awake, oriented to person, oriented to place Psychiatric exam: PRESENT: appropriate affect Skin exam: PRESENT: dry Results Laboratory Results: 05/28/20 07:48 05/28/20 07:48 05/27/20 05/27/20 05/28/20 13:03 14:21 07:48 WBC 33.9 H* 34.2 H* RBC 3.37 L 3.40 L Hgb 8.5 L 8.4 L Hct 26.8 L 27.0 L MCV 80 80 MCH 25.1 L 24.7 L MCHC 31.6 L 31.1 L RDW 23.6 H 23.8 H Plt Count 303 296 Seg Neutrophils % Not Reportable Sodium 129.6 L Potassium 4.3 Chloride 103 Carbon Dioxide 16 L Anion Gap 11 BUN 18 Creatinine 1.23 Est GFR ( Amer) 56 L Glucose 50 L Calcium 7.7 L Total Bilirubin 5.2 H AST 105 H Alkaline Phosphatase 125 Total Protein 5.4 L Albumin 2.2 L Lipase 185.9 05/28/20 07:48 WBC RBC Hgb Hct MCV MCH MCHC RDW Plt Count Seg Neutrophils % Sodium 131.2 L Potassium 5.0 Chloride 105 Carbon Dioxide 15 L Anion Gap 11 BUN 21 H Creatinine 2.19 H Est GFR ( Amer) 29 L Glucose 41 L Calcium 8.7 Total Bilirubin 5.1 H AST 120 H Alkaline Phosphatase 101 Total Protein 5.7 L Albumin 2.1 L Lipase 05/14/20 05/15/20 15:18 06:45 Troponin I < 0.012 < 0.012 Impressions: Abdomen Ultrasound 05/07/20 04:47 IMPRESSION: 1. Dilation of the common bile duct again identified measuring 1.2 cm. 2. Hepatic steatosis and hepatomegaly. 3. Prior cholecystectomy. PICC Line Insertion 05/14/20 00:00 IMPRESSION: SUCCESSFUL PLACEMENT OF A 5 FR DUAL LUMEN 42 CM PICC IN THE LEFT BASILIC VEIN. Venous Doppler Study 05/16/20 00:00 IMPRESSION: NO EVIDENCE DVT OR SVT IN EITHER LEG. Chest X-Ray 05/22/20 00:00 IMPRESSION: Minimal right basilar airspace disease most likely atelectasis. PICC line has been slightly withdrawn when compared to placement images dated May 14. Catheter tip overlies the innominate vein on the current study. Abdomen/Pelvis CT 05/23/20 00:00 IMPRESSION: No abscess. Decrease in fluid collection adjacent to the drain in the gallbladder fossa. Hepatobiliary Scan Nuclear Medicine 05/27/20 08:17 IMPRESSION: Prior cholecystectomy. No evidence of bile leak. Assessment & Plan - Plan Summary Plan Summary: still [facility] elevated wbc and left shift tbil elevated creat elevated to 2.19 from 1.2 yesterday yesterday hida neg for leak today j-tube with ascitic fluid, no bile last 3 ct's neg for absces or drainable fluid collection doppler of lower ext veins neg for dvt\ hida scan neg for leak cxr no infiltrate urinary erntercoccus rx with linezolid now off off flagyl c diff neg etiol of wbc and still unclear discussed [facility] internal medicine this am will cont to follow.
[2020-05-28] MEDS ORDERED: DEXTROSE 5%-NORMAL SALINE 1,000 ML IV SCH (09:45)
[2020-05-28] MEDS: METOPROLOL TARTRATE 25 MG TABLET PO SCH ×2 (10:00→22:43)
[2020-05-28] MEDS: NORMAL SALINE 10 ML SDV (SCHEDULED) IV SCH ×2 (10:32→22:42)
[2020-05-28] MEDS: MORPHINE SULFATE 10 MG/ML INJ IV PRN (10:34)
[2020-05-28] MEDS: PANTOPRAZOLE SODIUM 40 MG VIAL IV SCH ×2 (11:36→22:43)
[2020-05-28] MEDS: FOLIC ACID 1 MG TABLET PO SCH (13:44)
[2020-05-28] MEDS: FERROUS SULFATE 325 MG TABLET PO SCH (13:44)
[2020-05-28] MEDS: ZINC SULFATE 220 MG CAPSULE PO SCH (13:44)
[2020-05-28] MEDS: CYANOCOBALAMIN (VITAMIN B-12) INJ 1000 MCG/1 ML VIAL IM SCH (13:45)
[2020-05-28] MEDS: POLYETHYLENE GLYCOL 3350 POWDER 17 GM/1 PACKET PO SCH (13:46)
[2020-05-28] MEDS: CHOLECALCIFEROL (D3) 1,000 UNIT (25 MCG) TABLET PO SCH (13:49)
[2020-05-28] MEDS: DOCUSATE SODIUM 100 MG CAPSULE PO SCH ×2 (13:53→18:14)
[2020-05-28] MEDS: LIDOCAINE 5% (700 MG) TRANSDERMAL ADH..PATCH TP SCH (14:01)
--- NOTE | 2020-05-28 14:38 | PDOC CONSULTATION ---
Consultation Consult Date: 05/28/20 Provider Consulted: Lyndsey DEY Consult reason:: KEERTHI/Hyponatremia History of Present Illness Admission Date/PCP: 05/07/20 10:55 HARMONY RENE DO History of Present Illness: ZACK WYLIE is a 49 year old female with history of smoking and gastric bypass in 2003 presented to the ER on 05/07/20 for abdominal pain associated with decrease appetite. She was also dehydrated, had an elevated bilirubin, liver enzymes and was anemic w/ a positive stool occult blood. At that time she was admitted, given IV fluids, 2 units of PRBC. She had an abdominal ultrasound that shows a biliary stricture. Dr. Hubbard performed surgery on her and repaired a hernia, did a liver biopsy due to a cirrotic looking liver, and a choledochduodenostomy. She had an elevated white count so she was started on unyson and flagyl. On05/11 she was found to have a creatinine of 2.0, which was deemed elevated due to poor hydration. She was given LR for hydration and on 05/13 it resolved. On 05/16 she started to develop swelling of her left leg, a DVT was ruled out at the time. On 05/17 she still had an elevated white count that was still going up. She was switched to zoysn. She had also not had a bowel movement since the surgery so she was more aggressively managed. This caused for her bowels to finally start to move. On 05/19 her sodium was 131, it was determined that she was fluid overloaded so she was started on furosemide and albumin. Due to the elevated white count she had an abdominal CT with IV and oral contrast on 05/20. Only a small amount of fluid was found. On 05/21 it was determined that she had a VRE UTI. Zoysn and flagyl were stopped and linezolid was started. Once again an abdominal CT was done on 05/23 due to her white count still not coming down. She was placed back on flagyl and tested for c-diff due to loose bowel movements but not diarrhea. On 05/24 her sodium continued to drop. ID was consulted for the white count and determined the white count to be stress related. They advised her to d/c the antibiotics. On 05/25 she still determined to be fluid overloaded so she was started back on furosemide and albumin. She was starting to have abdominal pain again yesterday. Her creatinine yesterday was elevated still to 1.2 and the sodium was 129, her bicarb was 16. She was on normal saline and diuretics. Labs today show a creatinine of 2.19, sodium is sli ghtly better at 131, bicarb is 15. BP was also on the low side at 94/45. She was stopped already on the diuretics today. Today she claims to still be having the abdominal pain. It is located on her right side of her abdomen where her incision is according to her. She denies chest pain, SOB, n/v/d/c as of today. She also claims to be urinating well. She is set to have an ultrasound today and more labs. Past Medical History Psychiatric Medical History: Denies: Depression Past Surgical History Past Surgical History: Reports: Cholecystectomy, Gastric Bypass Surgery - Mackenzie-en-Y gastric bypass, frequently anemic due to malabsorption, Tubal Ligation Social History Lives with: Family Smoking Status: Current Every Day Smoker Cigarettes Packs Per Day: 0.5 Electronic Cigarette use?: No Frequency of Alcohol Use: Occasional Hx Recreational Drug Use: No Drugs: None Hx Prescription Drug Abuse: No - Advance Directive Resuscitation Status: Full Code Family History Parental Family History Reviewed: No Children Family History Reviewed: Unknown Sibling(s) Family History Reviewed.: Unknown Medication/Allergy Home Medications: Calcium Carbonate [Calcium] 500 mg PO DAILY 05/07/20 Ferrous Sulfate [Feosol 325 mg Tablet] 325 mg PO DAILY 05/07/20 Multivitamin 1 each PO DAILY 05/07/20 [place]-3 Fatty Acids [[place]-3] 1,000 mg PO DAILY 05/07/20 Allergies/Adverse Reactions: No Known Allergies Allergy (Verified 07/19/19 08:13) Review of Systems Constitutional: PRESENT: anorexia, fatigue. ABSENT: chills, fever(s) Eyes: ABSENT: visual disturbances Cardiovascular: ABSENT: chest pain, dyspnea on exertion, edema, orthropnea, palpitations Respiratory: ABSENT: cough, dyspnea, sputum Gastrointestinal: PRESENT: abdominal pain. ABSENT: constipation, diarrhea, nausea, vomiting Genitourinary: ABSENT: difficulty urinating, dysuria Musculoskeletal: ABSENT: muscle weakness Neurological: ABSENT: confusion, weakness Psychiatric: PRESENT: anxiety Physical Exam Vital Signs: Temp Pulse Resp BP Pulse Ox 98.2 F 107 H 18 90/67 L 100 07/28/20 08:15 05/28/20 08:15 05/28/20 08:15 05/28/20 08:15 05/28/20 08:15 Intake & Output 05/27/20 05/28/20 05/29/20 06:59 06:59 06:59 Intake Total 1420 1250 Output Total 540 415 Balance 880 835 Weight 118.9 kg 118.9 kg General appearance: PRESENT: mild distress - -in pain, obese, well-developed, well-nourished Mouth exam: PRESENT: dry mucosa, neck supple. ABSENT: moist Neck exam: ABSENT: JVD, tracheal deviation Respiratory exam: PRESENT: crackles - -courses crackles in the bases. ABSENT: clear to auscultation winter, rales, rhonchi, wheezes Cardiovascular exam: PRESENT: +S1, +S2, tachycardia GI/Abdominal exam: PRESENT: diminished bowel sounds, distended, hypoactive bowel sounds, tenderness. ABSENT: soft Extremities exam: ABSENT: pedal edema, +1 edema, +2 edema Musculoskeletal exam: PRESENT: normal inspection. ABSENT: deformity Neurological exam: PRESENT: alert, awake, oriented to person, oriented to place, oriented to time, oriented to situation Psychiatric exam: PRESENT: anxious, depressed. ABSENT: normal mood Skin exam: PRESENT: dry, intact, warm. ABSENT: cyanosis Results Laboratory Results: 05/28/20 07:48 05/28/20 07:48 05/27/20 05/27/20 05/28/20 13:03 14:21 07:48 WBC 33.9 H* 34.2 H* RBC 3.37 L 3.40 L Hgb 8.5 L 8.4 L Hct 26.8 L 27.0 L MCV 80 80 MCH 25.1 L 24.7 L MCHC 31.6 L 31.1 L RDW 23.6 H 23.8 H Plt Count 303 296 Seg Neutrophils % Not Reportable Sodium 129.6 L Potassium 4.3 Chloride 103 Carbon Dioxide 16 L Anion Gap 11 BUN 18 Creatinine 1.23 Est GFR ( Amer) 56 L Glucose 50 L Calcium 7.7 L Total Bilirubin 5.2 H AST 105 H Alkaline Phosphatase 125 Total Protein 5.4 L Albumin 2.2 L Lipase 185.9 05/28/20 07:48 WBC RBC Hgb Hct MCV MCH MCHC RDW Plt Count Seg Neutrophils % Sodium 131.2 L Potassium 5.0 Chloride 105 Carbon Dioxide 15 L Anion Gap 11 BUN 21 H Creatinine 2.19 H Est GFR ( Amer) 29 L Glucose 41 L Calcium 8.7 Total Bilirubin 5.1 H AST 120 H Alkaline Phosphatase 101 Total Protein 5.7 L Albumin 2.1 L Lipase 05/14/20 05/15/20 15:18 06:45 Troponin I < 0.012 < 0.012 Impressions: Abdomen Ultrasound 05/07/20 04:47 IMPRESSION: 1. Dilation of the common bile duct again identified measuring 1.2 cm. 2. Hepatic steatosis and hepatomegaly. 3. Prior cholecystectomy. PICC Line Insertion 05/14/20 00:00 IMPRESSION: SUCCESSFUL PLACEMENT OF A 5 FR DUAL LUMEN 42 CM PICC IN THE LEFT BASILIC VEIN. Venous Doppler Study 05/16/20 00:00 IMPRESSION: NO EVIDENCE DVT OR SVT IN EITHER LEG. Chest X-Ray 05/22/20 00:00 IMPRESSION: Minimal right basilar airspace disease most likely atelectasis. PICC line has been slightly withdrawn when compared to placement images dated May 14. Catheter tip overlies the innominate vein on the current study. Abdomen/Pelvis CT 05/23/20 00:00 IMPRESSION: No abscess. Decrease in fluid collection adjacent to the drain in the gallbladder fossa. Hepatobiliary Scan Nuclear Medicine 05/27/20 08:17 IMPRESSION: Prior cholecystectomy. No evidence of bile leak. Assessment & Plan - Diagnosis (1) KEERTHI (acute kidney injury) Is this a current diagnosis for this admission?: Yes Plan: nonoliguric, the recent elevation looks to be due to poor hydration/ overdiuresis. Other insults include IV contrast that initially started the elevation in the creatinine, a low bp from poor hydration. Stop diuretics and continue on normal saline at 100mL and hour. Follow up with ultrasound today and labs tomorrow. (2) Hyponatremia Is this a current diagnosis for this admission?: Yes Plan: continue on normal saline. The sodium does not look to be low due to fluid overload. Will follow up with labs. (3) Metabolic acidosis Plan: get labs, starting on sodium bicarb (4) Acute postoperative pain of abdomen Plan: per surgery (5) Anemia Qualifiers: Anemia type: iron deficiency Iron deficiency anemia type: unspecified iron deficiency Qualified Code(s): D50.9 - Iron deficiency anemia, unspecified Is this a current diagnosis for this admission?: Yes Plan: iron deficiency and other factors related. Has a positive occult blood but refuses to have the work up as of right now. (6) Edema Qualifiers: Edema type: due to malnutrition Is this a current diagnosis for this admission?: Yes Plan: no edema seen at this time. Stop diuretics (7) Abdominal pain Qualifiers: Abdominal location: generalized Qualified Code(s): R10.84 - Generalized abdominal pain Is this a current diagnosis for this admission?: Yes Plan: per surgery (8) Constipation Is this a current diagnosis for this admission?: Yes Plan: resolved (9) Heme positive stool Is this a current diagnosis for this admission?: Yes Plan: will be worked up as outpatient (10) Hypokalemia Is this a current diagnosis for this admission?: Yes Plan: stable (11) Hypomagnesemia Is this a current diagnosis for this admission?: Yes Plan: low end of normal (12) Leukocytosis Is this a current diagnosis for this admission?: Yes Plan: Per ID looks to be stress related so all antibiotics were stopped. (13) H/O gastric bypass Is this a current diagnosis for this admission?: Yes
--- NOTE | 2020-05-28 14:56 | RADIOLOGY REPORT (SQ) ---
EXAM DESCRIPTION: [facility] DUPLEX ART/YAMIL FLOW IMAGES COMPLETED DATE/TIME: 05/28/2020 1:52 pm REASON FOR STUDY: suspected portal vein thrombosis COMPARISON: None. TECHNIQUE: Grayscale and duplex Doppler evaluation of the hepatic vasculature. LIMITATIONS: Body habitus. Bandages. Overlying bowel gas. FINDINGS: There is normal directional flow in the main portal vein without evidence of thrombosis. Normal flow in the hepatic veins. Fatty change in the liver. Gallbladder is absent. Mild ascites. IMPRESSION: No evidence of portal vein thrombosis. TECHNICAL DOCUMENTATION: JOB ID: [id number] [employer]- All Rights Reserved Reading location - IP/workstation name: [facility] [email or web address]
[2020-05-28] MEDS: SODIUM BICARBONATE 650 MG TABLET PO SCH ×2 (18:13→22:43)
--- NOTE | 2020-05-28 18:37 | PDOC PROGRESS REPORT ---
Subjective Progress Note for:: 05/28/20 Subjective:: Per H&P: "ZACK WYLIE is a 49 year old female who is a current every day smoker and had a history of a Mackenzie-en-Y gastric bypass in 2003, who presents with abdominal pain. She was seen by Dr. Ibanez a week ago and had a ventral hernia reduced. At that time she was also found to have a biliary stricture. Dr. Hubbard was going to follow her and plan to manage her operatively. She was supposed to have a follow-up visit in about a week, but she came back in today because of abdominal pain. She denies any melena, hematemesis, or hematochezia. She was also found to have a low hemoglobin at 6.6. She has had problems with anemia in the past since her gastric bypass and has had multiple blood transfusions. They were going to order her some blood in the ER but they are having to get it specially treated because she has a lot of antibodies. Her lipase is also a little bit elevated, as is her bilirubin, along with some mild elevation in her transaminases and alkaline phosphatase. She was seen in consultation in the ER by Dr. العلي." 05/20/2020 Long discussion with nursing multiple times today about the patient's status. She has not had the patient in about 8 days but states that patient looks worse today compared to then. Patient is notably tachycardic with low blood pressure on room air. WBC is persistently elevated above 30. She has a recurrence of her KEERTHI likely due to overdiuresis and she has been started on IV fluids with nephrology consult following. I discussed with general surgery today the etiology of her worsening clinical status. He does not believe there is any surgical intervention that could improve the patient currently unless something changes. She has had multiple rounds of imaging recently but did not show the source of infection. Infectious disease has been previously consulted and stated the patient did not need to continue further antibiotics as they did not see a source of infection anywhere. Lactate is elevated at 3.6. CRP notably elevated at 227, ESR also elevated at 36. Flow cytometry and path review blood smear ordered. Lipase normal yesterday. Differential clearly shows neutrophil predominance. Other than continued abdominal pain, patient has no new complaints. She is fully alert and oriented today. Reason For Visit: BILIARY OBSTRUCTION S/P SURGERY Physical Exam Vital Signs: Temp Pulse Resp BP Pulse Ox 97.5 F 121 H 18 97/67 L 100 05/28/20 16:38 05/28/20 16:38 05/28/20 16:38 05/28/20 16:38 05/28/20 16:38 Intake & Output 05/27/20 05/28/20 05/29/20 06:59 06:59 06:59 Intake Total 1420 1250 50 Output Total 540 415 Balance 880 835 50 Weight 118.9 kg 118.9 kg General appearance: PRESENT: no acute distress, morbidly obese Head exam: PRESENT: atraumatic, normocephalic Eye exam: PRESENT: conjunctiva pink Mouth exam: PRESENT: moist Teeth exam: PRESENT: poor dentation Respiratory exam: PRESENT: clear to auscultation winter. ABSENT: rales, rhonchi, wheezes Cardiovascular exam: PRESENT: RRR. ABSENT: diastolic murmur, rubs, systolic murmur GI/Abdominal exam: PRESENT: normal bowel sounds, soft, tenderness - Diffuse and moderate, other - Extensive surgical scars and wounds. ABSENT: distended, guarding, mass, organolmegaly, rebound Rectal exam: PRESENT: deferred Neurological exam: PRESENT: alert, awake, oriented to person, oriented to place, oriented to time, oriented to situation Psychiatric exam: PRESENT: appropriate affect, normal mood Skin exam: PRESENT: dry, warm Results Laboratory Results: 05/28/20 07:48 05/28/20 07:48 05/28/20 05/28/20 05/28/20 07:48 07:48 11:49 WBC 34.2 H* RBC 3.40 L Hgb 8.4 L Hct 27.0 L MCV 80 MCH 24.7 L MCHC 31.1 L RDW 23.8 H Plt Count 296 Seg Neutrophils % Not Reportable Sodium 131.2 L Potassium 5.0 Chloride 105 Carbon Dioxide 15 L Anion Gap 11 BUN 21 H Creatinine 2.19 H Est GFR ( Amer) 29 L Glucose 41 L Lactic Acid 3.6 H Calcium 8.7 Total Bilirubin 5.1 H AST 120 H Alkaline Phosphatase 101 C-Reactive Protein Total Protein 5.7 L Albumin 2.1 L 05/28/20 11:49 WBC RBC Hgb Hct MCV MCH MCHC RDW Plt Count Seg Neutrophils % Sodium Potassium Chloride Carbon Dioxide Anion Gap BUN Creatinine Est GFR ( Amer) Glucose Lactic Acid Calcium Total Bilirubin AST Alkaline Phosphatase C-Reactive Protein 227.9 H Total Protein Albumin 05/14/20 05/15/20 15:18 06:45 Troponin I < 0.012 < 0.012 Impressions: Abdomen Ultrasound 05/07/20 04:47 IMPRESSION: 1. Dilation of the common bile duct again identified measuring 1.2 cm. 2. Hepatic steatosis and hepatomegaly. 3. Prior cholecystectomy. PICC Line Insertion 05/14/20 00:00 IMPRESSION: SUCCESSFUL PLACEMENT OF A 5 FR DUAL LUMEN 42 CM PICC IN THE LEFT BASILIC VEIN. Venous Doppler Study 05/16/20 00:00 IMPRESSION: NO EVIDENCE DVT OR SVT IN EITHER LEG. Chest X-Ray 05/22/20 00:00 IMPRESSION: Minimal right basilar airspace disease most likely atelectasis. PICC line has been slightly withdrawn when compared to placement images dated May 14. Catheter tip overlies the innominate vein on the current study. Abdomen/Pelvis CT 05/23/20 00:00 IMPRESSION: No abscess. Decrease in fluid collection adjacent to the drain in the gallbladder fossa. Hepatobiliary Scan Nuclear Medicine 05/27/20 08:17 IMPRESSION: Prior cholecystectomy. No evidence of bile leak. Vascular Ultrasound 05/28/20 00:00 IMPRESSION: No evidence of portal vein thrombosis. Assessment and Plan - Diagnosis (1) Biliary stricture Is this a current diagnosis for this admission?: Yes Plan: Per previous provider: "Patient s/p exploratory laparotomy with ventral hernia repair, choledochoduodenoscopy, and liver biopsy on 05/09/2020 Continues to have output via ROSALVA drain (likely ascites) as well as drainage around insertion site Patient had a hepatobiliary scan today with no evidence of bile leak Surgical management per surgical service" 05/28/2020 ROSALVA drain output continues Long discussion with general surgery, no indication for surgery currently has no evidence of abscess on prior scans (2) KEERTHI (acute kidney injury) Is this a current diagnosis for this admission?: Yes Plan: Per previous provider: "Awaiting morning labs Consult nephrology for KEERTHI/hyponatremia Continue albumin 12.5 g IV every 8 hours Continue to avoid nephrotoxins Monitor" 05/20/2020 Nephrology following, stopped diuresis and added IV fluids Trend BMP Creatinine trending up (3) Abdominal pain Qualifiers: Abdominal location: generalized Qualified Code(s): R10.84 - Generalized abdominal pain Is this a current diagnosis for this admission?: Yes (4) Heme positive stool Is this a current diagnosis for this admission?: Yes Plan: Per previous provider: "Continue pantoprazole 40 mg twice daily No liana signs of GI hemorrhage (hematochezia/melena) Patient continues to have drop in H/H may need to consider endoscopy while inp atient 05/20/2020 Hemoglobin stable x2, no evidence of continued bleeding Trend CBC (5) Hyperbilirubinemia Is this a current diagnosis for this admission?: Yes (6) Hyponatremia Is this a current diagnosis for this admission?: Yes Plan: Given persistent hyponatremia with downward trend, will consult nephrology NS ordered on 05/26/2020 not started Continue to monitor 05/20/2020 Resolved (7) Ventral incisional hernia Is this a current diagnosis for this admission?: Yes (8) H/O gastric bypass Is this a current diagnosis for this admission?: Yes Plan: : "Patient has noted vitamin deficiencies Continue ferrous sulfate 325 mg p.o. daily Continue calcium carbonate 500 mg p.o. 3 times daily with meals Continue cyanocobalamin 1000 mcg IM daily Continue folic acid 1 mg p.o. daily Continue vitamin D 1000 units p.o. daily Zinc level low at 34 Continue zinc sulfate 220 mg p.o. daily Copper level still pending" 05/20/2020 Continue vitamins (9) Obesity (BMI 30.0-34.9) Is this a current diagnosis for this admission?: Yes - Time Time Spent with patient: 35 or more minutes - Right Anticipated Discharge Disposition: [facility] Anticipated Discharge: Other - Unclear disposition, not improving - Inpatient Certification Based on my medical assessment, after consideration of the patient's comorbidities, presenting symptoms, or acuity I expect that the services needed warrant INPATIENT care.: Yes I certify that my determination is in accordance with my understanding of Medicare's requirements for reasonable and necessary INPATIENT services [42 CFR 412.3e].: Yes Medical Necessity: Significant Comorbidiites Make Outpatient Treatment Too R isky, Need Close Monitoring Due to Risk of Patient Decompensation, Risk of Complication if Not Cared For in Hospital, Risk of Diagnosis Which Will Require Inpatient Eval/Care/Monitoring
[2020-05-29] MEDS: CALCIUM CARBONATE 500 MG TAB.CHEW PO SCH ×2 (08:00→11:20)
[2020-05-29] MEDS ORDERED: NORMAL SALINE 1000 ML 1,000 ML IV ONE ×3 (08:30→22:30)
[2020-05-29] MEDS ORDERED: PHENOL/SODIUM PHENOLATE 100 SPRAY/177 ML BOTTLE PO PRN (09:38)
[2020-05-29] MEDS ORDERED: METRONIDAZOLE 500 MG/NS RTU 500 MG/100 ML RTUPB IV SCH (10:00)
[2020-05-29] MEDS: DOCUSATE SODIUM 100 MG CAPSULE PO SCH ×2 (10:03→18:05)
[2020-05-29 10:14] LABS: HEMATOCRIT 24.8 % (36.0-47.0); MEAN CORPUSCULAR HEMOGLOBIN 24.5 pg (27.0-33.4); MEAN CORPUSCULAR HGB CONC 29.9 g/dL (32.0-36.0); MEAN CORPUSCULAR VOLUME 82 fl (80-97); RED BLOOD COUNT 3.02 10^6/uL (3.72-5.28); RED CELL DISTRIBUTION WIDTH 23.9 % (11.5-14.0)
[2020-05-29 10:30] LABS: ANION GAP 14 (5-19); BLOOD UREA NITROGEN 22 mg/dL (7-20); CALCIUM 8.4 mg/dL (8.4-10.2); CHLORIDE 109 mmol/L (98-107); POTASSIUM 5.6 mmol/L (3.6-5.0)
[2020-05-29] MEDS: PANTOPRAZOLE SODIUM 40 MG VIAL IV SCH (10:40)
[2020-05-29 10:43] LABS: CARBON DIOXIDE 8 mmol/L (22-30); GLUCOSE 30 mg/dL (75-110)
[2020-05-29] MEDS ORDERED: DEXTROSE 50%-WATER 25 GM/50 ML DISP.SYRIN IV ONE ×2 (10:55→17:33)
[2020-05-29 11:04] LABS: ABSOLUTE MONOCYTES # (MANUAL) 2.3 10^3/uL (0.1-1.4); BAND NEUTROPHILS % (MANUAL) 4 % (3-5); BASOPHILS % (MANUAL) 0 % (0-2); EOSINOPHILS % (MANUAL) 0 % (0-6); LYMPHOCYTES % (MANUAL) 3 % (13-45); MONOCYTES % (MANUAL) 7 % (3-13); SEGMENTED NEUTROPHILS % (MAN) 86 % (42-78); TOTAL CELLS COUNTED 100
[2020-05-29 11:05] LABS: ANISOCYTOSIS 3+; PLATELET CLUMPS PRESENT; PLATELET COMMENT ADEQUATE
[2020-05-29 11:07] LABS: BURR CELLS 2+; HYPOCHROMASIA 2+; OVALOCYTES SLIGHT; POIKILOCYTOSIS 2+; POLYCHROMASIA SLIGHT; TARGET CELLS 1+; TEAR DROP CELLS SLIGHT
[2020-05-29 11:10] LABS: WHITE BLOOD COUNT 32.3 10^3/uL (4.0-10.5)
[2020-05-29 11:11] LABS: HEMOGLOBIN 7.4 g/dL (12.0-15.5); PLATELET COUNT 275 10^3/uL (150-450)
--- NOTE | 2020-05-29 11:17 | PDOC PROGRESS REPORT ---
Subjective Progress Note for:: 05/29/20 Subjective:: feels worsetoday Reason For Visit: BILIARY OBSTRUCTION S/P SURGERY Physical Exam Vital Signs: Temp Pulse Resp BP Pulse Ox 97.5 F 125 H 17 112/87 H 100 05/29/20 08:02 05/29/20 08:02 05/29/20 08:02 05/29/20 08:02 05/29/20 08:02 Intake & Output 05/28/20 05/29/20 05/30/20 06:59 06:59 06:59 Intake Total 1250 1100 Output Total 415 122 Balance 835 978 Weight 118.9 kg 118.9 kg General appearance: PRESENT: no acute distress, mild distress Head exam: PRESENT: normocephalic Eye exam: PRESENT: EOMI Mouth exam: PRESENT: dry mucosa Neck exam: PRESENT: full ROM Respiratory exam: PRESENT: clear to auscultation winter Cardiovascular exam: PRESENT: tachycardia Pulses: PRESENT: normal femoral pulses, normal dorsalis pedis pul Breast: PRESENT: Normal GI/Abdominal exam: PRESENT: other - soft min tenderness deisy bilious Neurological exam: PRESENT: alert, awake, oriented to person, oriented to place Psychiatric exam: PRESENT: appropriate affect Skin exam: PRESENT: dry Results Laboratory Results: 05/29/20 10:00 05/29/20 10:00 05/28/20 05/28/20 05/29/20 11:49 11:49 10:00 WBC 32.3 H* RBC 3.02 L Hgb 7.4 L Hct 24.8 L MCV 82 MCH 24.5 L MCHC 29.9 L RDW 23.9 H Plt Count 275 Seg Neutrophils % Not Reportable Sodium Potassium Chloride Carbon Dioxide Anion Gap BUN Creatinine Est GFR ( Amer) Glucose Lactic Acid 3.6 H Calcium C-Reactive Protein 227.9 H 05/29/20 10:00 WBC RBC Hgb Hct MCV MCH MCHC RDW Plt Count Seg Neutrophils % Sodium 131.4 L Potassium 5.6 H Chloride 109 H Carbon Dioxide 8 L* Anion Gap 14 BUN 22 H Creatinine 2.88 H Est GFR ( Amer) 21 L Glucose 30 L* Lactic Acid Calcium 8.4 C-Reactive Protein 05/14/20 05/15/20 15:18 06:45 Troponin I < 0.012 < 0.012 Impressions: Abdomen Ultrasound 05/07/20 04:47 IMPRESSION: 1. Dilation of the common bile duct again identified measuring 1.2 cm. 2. Hepatic steatosis and hepatomegaly. 3. Prior cholecystectomy. PICC Line Insertion 05/14/20 00:00 IMPRESSION: SUCCESSFUL PLACEMENT OF A 5 FR DUAL LUMEN 42 CM PICC IN THE LEFT BASILIC VEIN. Venous Doppler Study 05/16/20 00:00 IMPRESSION: NO EVIDENCE DVT OR SVT IN EITHER LEG. Chest X-Ray 05/22/20 00:00 IMPRESSION: Minimal right basilar airspace disease most likely atelectasis. PICC line has been slightly withdrawn when compared to placement images dated May 14. Catheter tip overlies the innominate vein on the current study. Abdomen/Pelvis CT 05/23/20 00:00 IMPRESSION: No abscess. Decrease in fluid collection adjacent to the drain in the gallbladder fossa. Hepatobiliary Scan Nuclear Medicine 05/27/20 08:17 IMPRESSION: Prior cholecystectomy. No evidence of bile leak. Vascular Ultrasound 05/28/20 00:00 IMPRESSION: No evidence of portal vein thrombosis. Assessment & Plan - Diagnosis (1) Anemia Qualifiers: Anemia type: iron deficiency Iron deficiency anemia type: unspecified iron deficiency Qualified Code(s): D50.9 - Iron deficiency anemia, unspecified - Time Time Spent: 30 to 50 Minutes Anticipated Discharge Disposition: xxxx Anticipated Discharge Timeframe: unk - Plan Summary Plan Summary: pt appears worse dry mucosa dehydrated will bolus ns restart iv abx ct today discussed with DR Llanos.
--- NOTE | 2020-05-29 13:33 | RADIOLOGY REPORT (SQ) ---
EXAM DESCRIPTION: CT ABDOMEN NO ORAL OR IV IMAGES COMPLETED DATE/TIME: 05/29/2020 1:10 pm REASON FOR STUDY: r/u ruq abscess COMPARISON: 05/28/2020 TECHNIQUE: CT scan of the abdomen performed without intravenous contrast and without oral contrast. Images reviewed with lung, soft tissue, and bone windows. Reconstructed coronal and sagittal MPR im ages reviewed. All images stored on PACS. All CT scanners at this facility use dose modulation, iterative reconstruction, and/or weight based d osing when appropriate to reduce radiation dose to as low as reasonably achievable (ALARA). [facility]: Dose Right [facility]: CareDose [facility]: Dose Right [facility]: Teradose 4D [facility]: Smart [employer] RADIATION DOSE: CT Rad equipment meets quality standard of care and radiation dose reduction techniq ues were employed. CTDIvol: 27.5 mGy. DLP: 1070 mGy-cm.mGy. LIMITATIONS: None. FINDINGS: LOWER CHEST: Small right pleural effusion with consolidation right lower lobe. Patchy lef t lower lobe airspace disease and trace fluid. NONCONTRASTED LIVER, SPLEEN, ADRENALS: Pneumobilia. PANCREAS: No masses. No peripancreatic inflammatory changes. GALLBLADDER: Absent. Surgical drain subhepatic. RIGHT KIDNEY AND URETER: No solid masses. Assessment limited by lack of IV contrast. No significant c alcification. No hydronephrosis or hydroureter. LEFT KIDNEY AND URETER: No solid masses. Assessment limited by lack of IV contrast. No significant ca lcification. No hydronephrosis or hydroureter. AORTA AND RETROPERITONEUM: No aneurysm. No retroperitoneal masses or adenopathy. BOWEL AND PERITONEAL CAVITY: No overt mechanical bowel obstruction. Progressive ascites compared to prior. No loculated fluid. APPENDIX: Not visualized. ABDOMINAL WALL: Flank anasarca. BONES: No significant findings. OTHER: No other significant finding. IMPRESSION: 1. Progressive ascites. No focal drainable abscess. Surgical drain remains in place. 2. Worsening lung aeration. TECHNICAL DOCUMENTATION: JOB ID: [id number] Quality ID # [id number]: Final reports with documentation of one or more dose reduction techniques (e.g., Au tomated exposure control, adjustment of the mA and/or kV according to patient size, use of iterative reconstruction technique) 2010 [employer]- All Rights Reserved Reading location - IP/workstation name: [email or web address]
[2020-05-29] MEDS: FOLIC ACID 1 MG TABLET PO SCH (13:48)
[2020-05-29] MEDS: FERROUS SULFATE 325 MG TABLET PO SCH (13:48)
[2020-05-29] MEDS: CHOLECALCIFEROL (D3) 1,000 UNIT (25 MCG) TABLET PO SCH (13:48)
[2020-05-29] MEDS: LIDOCAINE 5% (700 MG) TRANSDERMAL ADH..PATCH TP SCH (13:48)
[2020-05-29] MEDS: METOPROLOL TARTRATE 25 MG TABLET PO SCH (13:48)
[2020-05-29] MEDS: POLYETHYLENE GLYCOL 3350 POWDER 17 GM/1 PACKET PO SCH (13:49)
[2020-05-29] MEDS: NORMAL SALINE 10 ML SDV (SCHEDULED) IV SCH ×2 (13:49→21:31)
[2020-05-29] MEDS: ZINC SULFATE 220 MG CAPSULE PO SCH (13:55)
[2020-05-29] MEDS: SODIUM BICARBONATE 650 MG TABLET PO SCH ×2 (13:56→21:31)
[2020-05-29] MEDS: CYANOCOBALAMIN (VITAMIN B-12) INJ 1000 MCG/1 ML VIAL IM SCH (13:58)
[2020-05-29] MEDS ORDERED: PIPERACILLIN SODIUM/TAZOBACTAM 3.375 GM in NORMAL SALINE 100 ML IV SCH (14:00)
[2020-05-29] MEDS ORDERED: SODIUM POLYSTYRENE SULFONATE 15 GM/60 ML PO ONE (14:30)
[2020-05-29 14:37] LABS: ARTERIAL BLOOD BASE EXCESS -17.4 mmol/L; ARTERIAL BLOOD FIO2 21%; ARTERIAL BLOOD H2CO3 0.67 mmol/L (1.05-1.35); ARTERIAL BLOOD HCO3 8.8 mmol/L (20-24); ARTERIAL BLOOD O2 SATURATION 88.5 % (94-98); ARTERIAL BLOOD PCO2 22.4 mmHg (35-45); ARTERIAL BLOOD PH 7.21 (7.35-7.45); ARTERIAL BLOOD PO2 63.8 mmHg (80-100); ARTERIAL BLOOD TOTAL CO2 9.5 mmol/L (21-25)
[2020-05-29] MEDS: DEXTROSE 5%-WATER 1000 ML 1,000 ML with SODIUM BICARBONATE 150 MEQ IV PRN ×2 (14:57)
[2020-05-29 15:43] LABS: ANION GAP 14 (5-19); BLOOD UREA NITROGEN 21 mg/dL (7-20); CALCIUM 7.7 mg/dL (8.4-10.2); CHLORIDE 111 mmol/L (98-107); POTASSIUM 4.9 mmol/L (3.6-5.0)
[2020-05-29 15:59] LABS: CARBON DIOXIDE 8 mmol/L (22-30); GLUCOSE 411 mg/dL (75-110)
[2020-05-29] MEDS ORDERED: PIPERACILLIN SODIUM/TAZOBACTAM 2.25 GM in NORMAL SALINE 50 ML IV SCH (16:00)
[2020-05-29] MEDS ORDERED: PHARMACY COMMUNICATION ORDER MC NR (16:45)
[2020-05-29] MEDS ORDERED: FUROSEMIDE INJ/PF 20 MG/2 ML SDV IV SCH (17:00)
--- NOTE | 2020-05-29 17:01 | PDOC PROGRESS REPORT ---
Subjective Progress Note for:: 05/29/20 Subjective:: Patient was seen today laying in her bed. She just came back from having an abdominal CT for evaluation for possible sources of infections. She was also just started back on flagyl and zoysin. Creatinine continues to elevate today. She claims to have good urine output. She is currently unsure if she is having a bowel movement. Her abdominal pain has gotten worse and she is feeling worse. Bp remains in the 90s to the low 100s systolic. She has also started to develop SOB. She denies chest pain. Reason For Visit: BILIARY OBSTRUCTION S/P SURGERY Physical Exam Vital Signs: Temp Pulse Resp BP Pulse Ox 97.5 F 126 H 17 104/50 L 98 05/29/20 11:41 05/29/20 11:41 05/29/20 11:41 05/29/20 11:41 05/29/20 11:41 Intake & Output 05/28/20 05/29/20 05/30/20 06:59 06:59 06:59 Intake Total 1250 1100 1100 Output Total 415 122 490 Balance 835 978 610 Weight 118.9 kg 118.9 kg General appearance: PRESENT: mild distress - from pain, morbidly obese, well- developed, well-nourished Mouth exam: PRESENT: dry mucosa, neck supple. ABSENT: moist Neck exam: ABSENT: JVD, tracheal deviation Respiratory exam: PRESENT: crackles - -bases from atelectasis. ABSENT: rales, rhonchi, wheezes Cardiovascular exam: PRESENT: +S1, +S2, tachycardia GI/Abdominal exam: PRESENT: diminished bowel sounds, distended, hypoactive bowel sounds, tenderness. ABSENT: soft Extremities exam: PRESENT: +1 edema. ABSENT: pedal edema, +2 edema Musculoskeletal exam: PRESENT: normal inspection. ABSENT: deformity Neurological exam: PRESENT: altered, awake Psychiatric exam: PRESENT: appropriate affect, normal mood Skin exam: PRESENT: dry, intact, warm. ABSENT: cyanosis Results Laboratory Results: 05/29/20 10:00 05/29/20 15:00 05/29/20 05/29/20 05/29/20 10:00 10:00 14:25 WBC 32.3 H* RBC 3.02 L Hgb 7.4 L Hct 24.8 L MCV 82 MCH 24.5 L MCHC 29.9 L RDW 23.9 H Plt Count 275 Seg Neutrophils % Not Reportable Carbonic Acid 0.67 L HCO3/H2CO3 Ratio 13:1 ABG pH 7.21 L ABG pCO2 22.4 L ABG pO2 63.8 L ABG HCO3 8.8 L ABG O2 Saturation 88.5 L ABG Base Excess -17.4 FiO2 21% Sodium 131.4 L Potassium 5.6 H Chloride 109 H Carbon Dioxide 8 L* Anion Gap 14 BUN 22 H Creatinine 2.88 H Est GFR ( Amer) 21 L Glucose 30 L* Calcium 8.4 05/29/20 15:00 WBC RBC Hgb Hct MCV MCH MCHC RDW Plt Count Seg Neutrophils % Carbonic Acid HCO3/H2CO3 Ratio ABG pH ABG pCO2 ABG pO2 ABG HCO3 ABG O2 Saturation ABG Base Excess FiO2 Sodium 132.8 L Potassium 4.9 Chloride 111 H Carbon Dioxide 8 L* Anion Gap 14 BUN 21 H Creatinine 2.89 H Est GFR ( Amer) 21 L Glucose 411 H* Calcium 7.7 L 05/14/20 05/15/20 15:18 06:45 Troponin I < 0.012 < 0.012 Impressions: Abdomen Ultrasound 05/07/20 04:47 IMPRESSION: 1. Dilation of the common bile duct again identified measuring 1.2 cm. 2. Hepatic steatosis and hepatomegaly. 3. Prior cholecystectomy. PICC Line Insertion 05/14/20 00:00 IMPRESSION: SUCCESSFUL PLACEMENT OF A 5 FR DUAL LUMEN 42 CM PICC IN THE LEFT BASILIC VEIN. Venous Doppler Study 05/16/20 00:00 IMPRESSION: NO EVIDENCE DVT OR SVT IN EITHER LEG. Chest X-Ray 05/22/20 00:00 IMPRESSION: Minimal right basilar airspace disease most likely atelectasis. PICC line has been slightly withdrawn when compared to placement images dated May 14. Catheter tip overlies the innominate vein on the current study. Abdomen/Pelvis CT 05/23/20 00:00 IMPRESSION: No abscess. Decrease in fluid collection adjacent to the drain in the gallbladder fossa. Hepatobiliary Scan Nuclear Medicine 05/27/20 08:17 IMPRESSION: Prior cholecystectomy. No evidence of bile leak. Vascular Ultrasound 05/28/20 00:00 IMPRESSION: No evidence of portal vein thrombosis. Abdomen CT 05/29/20 00:00 IMPRESSION: 1. Progressive ascites. No focal drainable abscess. Surgical drain remains in place. 2. Worsening lung aeration. Assessment & Plan - Diagnosis (1) KEERTHI (acute kidney injury) Is this a current diagnosis for this admission?: Yes Plan: nonoliguric, from ATN from sepsis and dehydration. Other factors include possible hepatorenal syndrome from her cirrhosis. Looks to be getting worse from her current infection. Antibiotics were adjusted to her kidney function. Patients bicarb is low. Will switch her normal saline to 3 amps of bicarb in d5w and increase to 125mL. Will get a back catheter placed for closer Is and Os. With her worsening kidney function she may need dialysis at some point. With the low bp in the 90s to 100s systolic she would require CRRT which is not done here. No current indication today for dialysis. (2) Sepsis Plan: Patient falls under the criteria for sepsis. At this time she is started back on flagyl and zoysn. Giving bicarb to help counter the lactic acid formation and to help keep the bp up. She looks to be heading towards needing a higher level of care. Recommend transferring to the ICU and even to a tertiary hospital as this may lead to her needing CRRT. She also looks to need a closer evaluation by ID. (3) Hyponatremia Is this a current diagnosis for this admission?: Yes Plan: improving, switching to 3 amps of bicarb in D5W. Follow up with labs tomorrow. (4) Metabolic acidosis Plan: Likely due to sepsis. Getting a ABG, starting on IV sodium bicarb and continue PO if she will take them. Continue with antibiotics to solve the issue. (5) Biliary stricture Is this a current diagnosis for this admission?: Yes Plan: which was surgically fixed. Could be a possible source of infection. (6) Cirrhosis of liver Plan: biopsy results are still pending. Another factor that could be affecting the kidneys would be a hepatorenal syndrom. (7) Acute postoperative pain of abdomen Plan: per surgery (8) Anemia Qualifiers: Anemia type: iron deficiency Iron deficiency anemia type: unspecified iron deficiency Qualified Code(s): D50.9 - Iron deficiency anemia, unspecified Is this a current diagnosis for this admission?: Yes Plan: per hospitalist (9) Edema Qualifiers: Edema type: due to malnutrition Is this a current diagnosis for this admission?: Yes Plan: looks to have increased, likely due to 3rd spacing. Unfortunately due to her condition she is requiring fluids. Will look to start a low dose of furosemide at 20mg. At this time she is likely becoming anureic due to her worsening condition. (10) Abdominal pain Qualifiers: Abdominal location: generalized Qualified Code(s): R10.84 - Generalized abdominal pain Is this a current diagnosis for this admission?: Yes Plan: per surgery (11) Constipation Is this a current diagnosis for this admission?: Yes (12) Heme positive stool Is this a current diagnosis for this admission?: Yes Plan: per hospitalist services (13) Hypomagnesemia Is this a current diagnosis for this admission?: Yes Plan: stable (14) Leukocytosis Is this a current diagnosis for this admission?: Yes Plan: back on antibiotics and currently looking for a source of the infection. All antibiotics were renal dosed. (15) H/O gastric bypass Is this a current diagnosis for this admission?: Yes - Notes Notes: Patient was seen and examined with Dr. Christianson. Case was also discussed with him.
[2020-05-29] MEDS: HYDROCORTISONE SOD SUCCINATE INJ/PF 100 MG/2 ML SDV IV SCH (17:44)
[2020-05-29] MEDS ORDERED: THIAMINE HCL 100 MG in NORMAL SALINE 50 ML IV SCH (18:00)
[2020-05-29] MEDS: MEROPENEM 1 GM in NORMAL SALINE 50 ML IV SCH (18:04)
--- NOTE | 2020-05-29 18:53 | PDOC PROGRESS REPORT ---
Subjective Progress Note for:: 05/29/20 Subjective:: Per H&P: "ZACK WYLIE is a 49 year old female who is a current every day smoker and had a history of a Mackenzie-en-Y gastric bypass in 2003, who presents with abdominal pain. She was seen by Dr. Ibanez a week ago and had a ventral hernia reduced. At that time she was also found to have a biliary stricture. Dr. Hubbard was going to follow her and plan to manage her operatively. She was supposed to have a follow-up visit in about a week, but she came back in today because of abdominal pain. She denies any melena, hematemesis, or hematochezia. She was also found to have a low hemoglobin at 6.6. She has had problems with anemia in the past since her gastric bypass and has had multiple blood transfusions. They were going to order her some blood in the ER but they are having to get it specially treated because she has a lot of antibodies. Her lipase is also a little bit elevated, as is her bilirubin, along with some mild elevation in her transaminases and alkaline phosphatase. She was seen in consultation in the ER by Dr. العلي." 05/28/2020 Long discussion with nursing multiple times today about the patient's status. She has not had the patient in about 8 days but states that patient looks worse today compared to then. Patient is notably tachycardic with low blood pressure on room air. WBC is persistently elevated above 30. She has a recurrence of her KEERTHI likely due to overdiuresis and she has been started on IV fluids with nephrology consult following. I discussed with general surgery today the etiology of her worsening clinical status. He does not believe there is any surgical intervention that could improve the patient currently unless something changes. She has had multiple rounds of imaging recently but did not show the source of infection. Infectious disease has been previously consulted and stated the patient did not need to continue further antibiotics as they did not see a source of infection anywhere. Lactate is elevated at 3.6. CRP notably elevated at 227, ESR also elevated at 36. Flow cytometry and path review blood smear ordered. Lipase normal yesterday. Differential clearly shows neutrophil predominance. Other than continued abdominal pain, patient has no new complaints. She is fully alert and oriented today. 05/29/2020 I extensive conversation about this patient with multiple physicians today including general surgery, nephrology, critical care. Nephrology is putting the patient on a bicarbonate drip for her CO2 of 8 on her BMP today, likely result of her progressive renal failure. WBC remains markedly elevated in the 30s. I discussed with Dr. Hubbard today that I believe the source of infection is very likely her abdomen given all the complications she has had with that area in the past. We discussed possibility of a washout and he is considering this. I called him back later in the afternoon and we discussed the CT results which showed progressive ascites compared to the previous scan. Unfortunately, patient appears to be worsening clinically, hemodynamically, and I believe she is appropriate for ICU transfer given she is currently headed towards septic shock in my opinion. Blood pressures dropping tachycardia is persistent and WBC is unchanged despite starting aggressive antibiotics. I have added micafungin, linezolid, and I put her on the vitamin C sepsis protocol. I discussed my plans with Dr. Haines who is in agreement and has accepted the patient to the ICU. Patient will be transferred there as soon as another patient is transferred out under my care. Also had a long discussion with the patient's daughter and explained the highly complicated nature of her mother's illness. I did explain our plan in great detail and she expressed that she now understood our goals and that she agrees with our plan. I am very concerned that the patient will not survive this hospitalization and I expressed this concern to the patient's daughter who stated she understood. Patient is more somnolent today and cannot articulate any specific complaints of abdominal pain. Reason For Visit: BILIARY OBSTRUCTION S/P SURGERY Physical Exam Vital Signs: Temp Pulse Resp BP Pulse Ox 97.4 F 107 H 18 95/69 L 100 05/29/20 16:20 05/29/20 16:20 05/29/20 16:20 05/29/20 16:20 05/29/20 16:20 Intake & Output 05/28/20 05/29/20 05/30/20 06:59 06:59 06:59 Intake Total 1250 1100 1100 Output Total 415 122 490 Balance 835 978 610 Weight 118.9 kg 118.9 kg Results Laboratory Results: 05/29/20 10:00 05/29/20 15:00 05/29/20 05/29/20 05/29/20 10:00 10:00 14:25 WBC 32.3 H* RBC 3.02 L Hgb 7.4 L Hct 24.8 L MCV 82 MCH 24.5 L MCHC 29.9 L RDW 23.9 H Plt Count 275 Seg Neutrophils % Not Reportable Carbonic Acid 0.67 L HCO3/H2CO3 Ratio 13:1 ABG pH 7.21 L ABG pCO2 22.4 L ABG pO2 63.8 L ABG HCO3 8.8 L ABG O2 Saturation 88.5 L ABG Base Excess -17.4 FiO2 21% Sodium 131.4 L Potassium 5.6 H Chloride 109 H Carbon Dioxide 8 L* Anion Gap 14 BUN 22 H Creatinine 2.88 H Est GFR ( Amer) 21 L Glucose 30 L* Lactic Acid Calcium 8.4 Ammonia 05/29/20 05/29/20 05/29/20 15:00 17:22 17:22 WBC RBC Hgb Hct MCV MCH MCHC RDW Plt Count Seg Neutrophils % Carbonic Acid HCO3/H2CO3 Ratio ABG pH ABG pCO2 ABG pO2 ABG HCO3 ABG O2 Saturation ABG Base Excess FiO2 Sodium 132.8 L Potassium 4.9 Chloride 111 H Carbon Dioxide 8 L* Anion Gap 14 BUN 21 H Creatinine 2.89 H Est GFR ( Amer) 21 L Glucose 411 H* Lactic Acid Cancelled Calcium 7.7 L Ammonia 21.8 05/14/20 05/15/20 15:18 06:45 Troponin I < 0.012 < 0.012 Impressions: Abdomen Ultrasound 05/07/20 04:47 IMPRESSION: 1. Dilation of the common bile duct again identified measuring 1.2 cm. 2. Hepatic steatosis and hepatomegaly. 3. Prior cholecystectomy. PICC Line Insertion 05/14/20 00:00 IMPRESSION: SUCCESSFUL PLACEMENT OF A 5 FR DUAL LUMEN 42 CM PICC IN THE LEFT BASILIC VEIN. Venous Doppler Study 05/16/20 00:00 IMPRESSION: NO EVIDENCE DVT OR SVT IN EITHER LEG. Chest X-Ray 05/22/20 00:00 IMPRESSION: Minimal right basilar airspace disease most likely atelectasis. PICC line has been slightly withdrawn when compared to placement images dated May 14. Catheter tip overlies the innominate vein on the current study. Abdomen/Pelvis CT 05/23/20 00:00 IMPRESSION: No abscess. Decrease in fluid collection adjacent to the drain in the gallbladder fossa. Hepatobiliary Scan Nuclear Medicine 05/27/20 08:17 IMPRESSION: Prior cholecystectomy. No evidence of bile leak. Vascular Ultrasound 05/28/20 00:00 IMPRESSION: No evidence of portal vein thrombosis. Abdomen CT 05/29/20 00:00 IMPRESSION: 1. Progressive ascites. No focal drainable abscess. Surgical drain remains in place. 2. Worsening lung aeration. Assessment and Plan - Diagnosis (1) Biliary stricture Is this a current diagnosis for this admission?: Yes Plan: Per previous provider: "Patient s/p exploratory laparotomy with ventral hernia repair, choledochoduodenoscopy, and liver biopsy on 05/09/2020 Continues to have output via ROSALVA drain (likely ascites) as well as drainage around insertion site Patient had a hepatobiliary scan today with no evidence of bile leak Surgical management per surgical service" 05/28/2020 ROSALVA drain output continues Long discussion with general surgery, no indication for surgery currently has no evidence of abscess on prior scans 05/20/2022 Dr. Hubbard still following actively and considering taking the patient back to the OR for washout possibly as early as 05/30 CT abdomen/pelvis revealed reaccumulation of ascites, progressed from previous scan (2) KEERTHI (acute kidney injury) Is this a current diagnosis for this admission?: Yes Plan: Per previous provider: "Awaiting morning labs Consult nephrology for KEERTHI/hyponatremia Continue albumin 12.5 g IV every 8 hours Continue to avoid nephrotoxins Monitor" 05/02 Nephrology following, stopped diuresis and added IV fluids Trend BMP Creatinine trending up 05/29/2020 Nephrology started patient on bicarbonate drip for CO2 of 8 on BMP today, considering CRRT Creatinine continues to rise (3) Abdominal pain Qualifiers: Abdominal location: generalized Qualified Code(s): R10.84 - Generalized abdominal pain Is this a current diagnosis for this admission?: Yes (4) Heme positive stool Is this a current diagnosis for this admission?: Yes (5) Hyperbilirubinemia Is this a current diagnosis for this admission?: Yes (6) Hyponatremia Is this a current diagnosis for this admission?: Yes (7) Ventral incisional hernia Is this a current diagnosis for this admission?: Yes (8) H/O gastric bypass Is this a current diagnosis for this admission?: Yes (9) Obesity (BMI 30.0-34.9) Is this a current diagnosis for this admission?: Yes (10) Septic shock Is this a current diagnosis for this admission?: Yes Plan: -Source is most likely to be abdominal ascites from biliary leak General surgery following and possibly taking patient back to the OR to establish good source control Broad-spectrum antibiotics: Zyvox, Zosyn, micafungin; Dr. Haines may change Zosyn to meropenem once patient arrives to ICU Patient transferred to ICU, discussed in detail with Dr. Bronson who agrees Bicarbonate drip Vitamin C protocol started on 05/29: Hydrocortisone, thiamine, IV vitamin C will be available 05/30 as I have special order this through our pharmacy - Time Time Spent with patient: 35 or more minutes Medications reviewed and adjusted accordingly: Yes Anticipated Discharge Disposition: Unclear disposition, may not survive hospitalization Anticipated Discharge Timeframe: Unclear disposition, may not survive hospitalization - Inpatient Certification Based on my medical assessment, after consideration of the patient's comorbidities, presenting symptoms, or acuity I expect that the services needed warrant INPATIENT care.: Yes I certify that my determination is in accordance with my understanding of Medicare's requirements for reasonable and necessary INPATIENT services [42 CFR 412.3e].: Yes Medical Necessity: Significant Comorbidiites Make Outpatient Treatment Too Risky, Need Close Monitoring Due to Risk of Patient Decompensation, Need for IV Antibiotics, Risk of Complication if Not Cared For in Hospital, Risk of Diagnosis Which Will Require Inpatient Eval/Care/Monitoring
[2020-05-29] MEDS ORDERED: MICAFUNGIN SODIUM INJ/PF 100 MG VIAL IV SCH (20:00)
[2020-05-29] MEDS ORDERED: MICAFUNGIN SODIUM 100 MG in NORMAL SALINE 100 ML IV SCH (20:00)
[2020-05-29 20:44] LABS: ARTERIAL BLOOD BASE EXCESS -15.5 mmol/L; ARTERIAL BLOOD H2CO3 0.72 mmol/L (1.05-1.35); ARTERIAL BLOOD HCO3 10.3 mmol/L (20-24); ARTERIAL BLOOD O2 SATURATION 96.4 % (94-98); ARTERIAL BLOOD PH 7.25 (7.35-7.45)
[2020-05-29 20:46] LABS: ARTERIAL BLOOD FIO2 2L
[2020-05-29] MEDS: THIAMINE HCL 200 MG in NORMAL SALINE 50 ML IV SCH (21:30)
[2020-05-29] MEDS: LINEZOLID 600 MG/300 ML RTUPB IV SCH (21:31)
[2020-05-29] MEDS ORDERED: FENTANYL CITRATE INJ/PF 100 MCG/2 ML AMPUL IV ONE (22:30)
[2020-05-29 23:46] LABS: ALBUMIN 1.6 g/dL (3.5-5.0); ALKALINE PHOSPHATASE 70 U/L (38-126); ANION GAP 10 (5-19); BILIRUBIN,DIRECT 3.1 mg/dL (0.0-0.4); BILIRUBIN,TOTAL 3.9 mg/dL (0.2-1.3); BLOOD UREA NITROGEN 23 mg/dL (7-20); CALCIUM 7.8 mg/dL (8.4-10.2); CARBON DIOXIDE 13 mmol/L (22-30); CHLORIDE 107 mmol/L (98-107); GLUCOSE 83 mg/dL (75-110); POTASSIUM 5.2 mmol/L (3.6-5.0); TOTAL PROTEIN 4.7 g/dL (6.3-8.2)
[2020-05-30] LABS: ASPARTATE AMINO TRANSFERASE 1079 U/L (14-36)
[2020-05-30] MEDS: HYDROCORTISONE SOD SUCCINATE INJ/PF 100 MG/2 ML SDV IV SCH ×4 (00:50→18:03)
[2020-05-30] MEDS: DEXTROSE 5%-WATER 1000 ML 1,000 ML with SODIUM BICARBONATE 150 MEQ IV PRN ×6 (01:41→20:34)
[2020-05-30] MEDS ORDERED: NORMAL SALINE 1000 ML 1,000 ML IV ONE (02:00)
[2020-05-30] MEDS ORDERED: FENTANYL CITRATE INJ/PF 100 MCG/2 ML AMPUL IV ONE (02:36)
[2020-05-30] MEDS: MEROPENEM 1 GM in NORMAL SALINE 50 ML IV SCH ×3 (02:38→13:38)
[2020-05-30 04:34] LABS: HEMATOCRIT 24.1 % (36.0-47.0); MEAN CORPUSCULAR HEMOGLOBIN 24.8 pg (27.0-33.4); MEAN CORPUSCULAR VOLUME 83 fl (80-97); PLATELET COUNT 192 10^3/uL (150-450); RED BLOOD COUNT 2.91 10^6/uL (3.72-5.28); RED CELL DISTRIBUTION WIDTH 23.6 % (11.5-14.0); WHITE BLOOD COUNT 27.7 10^3/uL (4.0-10.5)
[2020-05-30 04:49] LABS: ANION GAP 10 (5-19); BLOOD UREA NITROGEN 25 mg/dL (7-20); CALCIUM 8.1 mg/dL (8.4-10.2); CARBON DIOXIDE 15 mmol/L (22-30); CHLORIDE 107 mmol/L (98-107); GLUCOSE 78 mg/dL (75-110); POTASSIUM 5.3 mmol/L (3.6-5.0)
[2020-05-30 04:54] LABS: ABSOLUTE LYMPHOCYTES# (MANUAL) 0.6 10^3/uL (0.5-4.7); ABSOLUTE MONOCYTES # (MANUAL) 2.8 10^3/uL (0.1-1.4); BAND NEUTROPHILS % (MANUAL) 6 % (3-5); BASOPHILS % (MANUAL) 0 % (0-2); EOSINOPHILS % (MANUAL) 0 % (0-6); LYMPHOCYTES % (MANUAL) 2 % (13-45); MONOCYTES % (MANUAL) 10 % (3-13); SEGMENTED NEUTROPHILS % (MAN) 82 % (42-78); TOTAL CELLS COUNTED 100
[2020-05-30 04:55] LABS: ANISOCYTOSIS 3+; PLATELET COMMENT ADEQUATE; POIKILOCYTOSIS SLIGHT; TARGET CELLS SLIGHT; TOXIC VACUOLATION PRESENT
[2020-05-30 04:56] LABS: HEMOGLOBIN 7.2 g/dL (12.0-15.5)
[2020-05-30 05:03] LABS: URINE CREATININE 50.7 mg/dL (15-278)
[2020-05-30 05:35] LABS: ARTERIAL BLOOD BASE EXCESS -10.7 mmol/L; ARTERIAL BLOOD H2CO3 0.76 mmol/L (1.05-1.35); ARTERIAL BLOOD HCO3 13.6 mmol/L (20-24); ARTERIAL BLOOD O2 SATURATION 97.1 % (94-98); ARTERIAL BLOOD PCO2 25.2 mmHg (35-45); ARTERIAL BLOOD PH 7.35 (7.35-7.45); ARTERIAL BLOOD PO2 95.5 mmHg (80-100); ARTERIAL BLOOD TOTAL CO2 14.4 mmol/L (21-25)
[2020-05-30 05:36] LABS: ARTERIAL BLOOD FIO2 28%
--- NOTE | 2020-05-30 06:26 | CRITICAL CARE ADMISSION REPORT ---
HPI Date:: 05/29/20 Time:: 19:00 Reason for ICU Reason:: Sepsis Admission Date/Time & PCP: Admission Date/Time: 05/07/20 10:55 Primary Care Provider: HARMONY RENE DO HPI: ZACK WYLIE is a 49 year old female with history of smoking and gastric bypass in 2003 presented to the ER on 05/07/20 for abdominal pain associated with decrease appetite. She was also dehydrated, had an elevated bilirubin, liver enzymes and was anemic w/ a positive stool occult blood. At that time she was admitted, given IV fluids, 2 units of PRBC. She had an abdominal ultrasound that shows a biliary stricture. Dr. Hubbard performed surgery on her and repaired a hernia, did a liver biopsy due to a cirrotic looking liver, and a choledoch duodenostomy. She had an elevated white count so she was started on unyson and flagyl. On05/11 she was found to have a creatinine of 2.0, which was deemed elevated due to poor hydration. She was given LR for hydration and on 05/13 it resolved. On 05/16 she started to develop swelling of her left leg, a DVT was ruled out at the time. On 05/17 she still had an elevated white count that was still going up. She was switched to zoysn. She had also not had a bowel movement since the surgery so she was more aggressively managed. This caused for her bowels to finally start to move. On 05/19 her sodium was 131, it was determined that she was fluid overloaded so she was started on furosemide and albumin. Due to the elevated white count she had an abdominal CT with IV and oral contrast on 05/20. Only a small amount of fluid was found. On 05/21 it was determined that she had a VRE UTI. Zoysn and flagyl were stopped and linezolid was started. Once again an abdominal CT was done on 05/23 due to her white count still not coming down. She was placed back on flagyl and tested for c-diff due to loose bowel mo vements but not diarrhea. On 05/24 her sodium continued to drop. ID was consulted for the white count and determined the white count to be stress related. They advised her to d/c the antibiotics. On 05/25 she still determined to be fluid overloaded so she was started back on furosemide and albumin. On 05/29 WBC remained elevated, worsening clinically. borderline BP and tachycardia. Given her worsening sepsis, she is transferred to the ICU for further management. - Diagnosis/Plan (1) Biliary stricture Is this a current diagnosis for this admission?: Yes Plan: s/p exploratory laparotomy with ventral hernia repair, choledochoduodenoscopy, and liver biopsy on 05/09/2020 Continues to have output via ROSALVA drain (likely ascites) as well as drainage around insertion site Patient had a hepatobiliary scan today with no evidence of bile leak Surgical management per surgical service Dr. Hubbard still following actively and considering taking the patient back to the OR on 05/30 CT abdomen/pelvis revealed reaccumulation of ascites, progressed from previous scan (2) KEERTHI (acute kidney injury) Is this a current diagnosis for this admission?: Yes Plan: Nephrology started patient on bicarbonate drip for CO2 of 8 on BMP today, considering IHD Creatinine down slightly to 3.02 - Daily BMP (3) Sepsis Qualifiers: Sepsis type: sepsis due to unspecified organism Severe sepsis acute organ dysfunction type: acute renal failure Is this a current diagnosis for this admission?: Yes Plan: -Source is most likely to be abdominal infection General surgery following and possibly taking patient back to the OR for wash out Broad-spectrum antibiotics: Zyvox, Merropenem and micafungin; Bicarbonate drip Past Medical History Psychiatric Medical History: Denies: Depression Hematology: Reports: Anemia Past Surgical History Past Surgical History: Reports: Cholecystectomy, Gastric Bypass Surgery - Mackenzie-en-Y gastric bypass, frequently anemic due to malabsorption, Tubal Ligation Social/Family History - Social History Lives with: Family Smoking Status: Current Every Day Smoker Cigarettes Packs Per Day: 0.5 Frequency of Alcohol Use: Occasional Hx Recreational Drug Use: No Drugs: None Hx Prescription Drug Abuse: No - Medication/Allergies Home Medications: Calcium Carbonate [Calcium] 500 mg PO DAILY 05/07/20 Ferrous Sulfate [Feosol 325 mg Tablet] 325 mg PO DAILY 05/07/20 Multivitamin 1 each PO DAILY 05/07/20 [place]-3 Fatty Acids [[place]-3] 1,000 mg PO DAILY 05/07/20 Allergies/Adverse Reactions: No Known Allergies Allergy (Verified 07/19/19 08:13) Review of Systems ROS unobtainable: Due to mental status Physical Exam Vital Signs: Temp Pulse Resp BP Pulse Ox 97.2 F 111 H 15 149/114 H 93 05/30/20 02:00 05/29/20 19:07 05/30/20 02:00 05/29/20 19:07 05/30/20 02:00 Intake & Output 05/28/20 05/29/20 05/30/20 06:59 06:59 06:59 Intake Total 1250 1100 2350 Output Total 595 609 2647 Balance 624 545 2644 Weight 118.9 kg 118.9 kg 128.2 kg Weight/Height Weight 128.2 kg Height 5 ft 8 in General appearance: PRESENT: mild distress Head exam: PRESENT: atraumatic, normocephalic Eye exam: PRESENT: PERRLA Mouth exam: PRESENT: dry mucosa, moist Teeth exam: PRESENT: dental caries Neck exam: PRESENT: full ROM Respiratory exam: PRESENT: decreased breath sounds Cardiovascular exam: PRESENT: tachycardia Pulses: PRESENT: normal radial pulses GI/Abdominal exam: PRESENT: guarding, hypoactive bowel sounds, tenderness Musculoskeletal exam: PRESENT: full ROM Neurological exam: PRESENT: oriented to person, oriented to place Tubes/Lines: PRESENT: Arterial Catheter Laboratory/Radiographs Laboratory Results: 05/30/20 04:12 05/30/20 04:12 05/29/20 05/29/20 05/29/20 10:00 10:00 14:25 WBC 32.3 H* RBC 3.02 L Hgb 7.4 L Hct 24.8 L MCV 82 MCH 24.5 L MCHC 29.9 L RDW 23.9 H Plt Count 275 Seg Neutrophils % Not Reportable Carbonic Acid 0.67 L HCO3/H2CO3 Ratio 13:1 ABG pH 7.21 L ABG pCO2 22.4 L ABG pO2 63.8 L ABG HCO3 8.8 L ABG O2 Saturation 88.5 L ABG Base Excess -17.4 FiO2 21% Sodium 131.4 L Potassium 5.6 H Chloride 109 H Carbon Dioxide 8 L* Anion Gap 14 BUN 22 H Creatinine 2.88 H Est GFR ( Amer) 21 L Glucose 30 L* Lactic Acid Calcium 8.4 Total Bilirubin AST Alkaline Phosphatase Ammonia C-Reactive Protein Total Protein Albumin 05/29/20 05/29/20 05/29/20 15:00 17:22 17:22 WBC RBC Hgb Hct MCV MCH MCHC RDW Plt Count Seg Neutrophils % Carbonic Acid HCO3/H2CO3 Ratio ABG pH ABG pCO2 ABG pO2 ABG HCO3 ABG O2 Saturation ABG Base Excess FiO2 Sodium 132.8 L Potassium 4.9 Chloride 111 H Carbon Dioxide 8 L* Anion Gap 14 BUN 21 H Creatinine 2.89 H Est GFR ( Amer) 21 L Glucose 411 H* Lactic Acid Cancelled Calcium 7.7 L Total Bilirubin AST Alkaline Phosphatase Ammonia 21.8 C-Reactive Protein Total Protein Albumin 05/29/20 05/29/20 05/29/20 17:22 19:00 20:20 WBC RBC Hgb Hct MCV MCH MCHC RDW Plt Count Seg Neutrophils % Carbonic Acid 0.72 L HCO3/H2CO3 Ratio 14:1 ABG pH 7.25 L ABG pCO2 24.0 L ABG pO2 96.0 ABG HCO3 10.3 L ABG O2 Saturation 96.4 ABG Base Excess -15.5 FiO2 2L Sodium Potassium Chloride Carbon Dioxide Anion Gap BUN Creatinine Est GFR ( Amer) Glucose Lactic Acid 11.3 H Calcium Total Bilirubin AST Alkaline Phosphatase Ammonia C-Reactive Protein 258.7 H Total Protein Albumin 05/29/20 05/29/20 05/30/20 23:02 23:02 04:12 WBC RBC Hgb Hct MCV MCH MCHC RDW Plt Count Seg Neutrophils % Carbonic Acid HCO3/H2CO3 Ratio ABG pH ABG pCO2 ABG pO2 ABG HCO3 ABG O2 Saturation ABG Base Excess FiO2 Sodium 130.0 L 131.5 L Potassium 5.2 H 5.3 H Chloride 107 107 Carbon Dioxide 13 L 15 L Anion Gap 10 10 BUN 23 H 25 H Creatinine 3.17 H 3.02 H Est GFR ( Amer) 19 L 20 L Glucose 83 78 Lactic Acid 9.1 H Calcium 7.8 L 8.1 L Total Bilirubin 3.9 H AST 1079 H Alkaline Phosphatase 70 Ammonia C-Reactive Protein Total Protein 4.7 L Albumin 1.6 L 05/30/20 05/30/20 04:12 05:20 WBC 27.7 H RBC 2.91 L Hgb 7.2 L Hct 24.1 L MCV 83 MCH 24.8 L MCHC 30.0 L RDW 23.6 H Plt Count 192 Seg Neutrophils % Not Reportable Carbonic Acid 0.76 L HCO3/H2CO3 Ratio 17:1 ABG pH 7.35 ABG pCO2 25.2 L ABG pO2 95.5 ABG HCO3 13.6 L ABG O2 Saturation 97.1 ABG Base Excess -10.7 FiO2 28% Sodium Potassium Chloride Carbon Dioxide Anion Gap BUN Creatinine Est GFR ( Amer) Glucose Lactic Acid Calcium Total Bilirubin AST Alkaline Phosphatase Ammonia C-Reactive Protein Total Protein Albumin 05/14/20 05/15/20 15:18 06:45 Troponin I < 0.012 < 0.012 Impressions: Abdomen Ultrasound 05/07/20 04:47 IMPRESSION: 1. Dilation of the common bile duct again identified measuring 1.2 cm. 2. Hepatic steatosis and hepatomegaly. 3. Prior cholecystectomy. PICC Line Insertion 05/14/20 00:00 IMPRESSION: SUCCESSFUL PLACEMENT OF A 5 FR DUAL LUMEN 42 CM PICC IN THE LEFT BASILIC VEIN. Venous Doppler Study 05/16/20 00:00 IMPRESSION: NO EVIDENCE DVT OR SVT IN EITHER LEG. Chest X-Ray 05/22/20 00:00 IMPRESSION: Minimal right basilar airspace disease most likely atelectasis. PICC line has been slightly withdrawn when compared to placement images dated May 14. Catheter tip overlies the innominate vein on the current study. Abdomen/Pelvis CT 05/23/20 00:00 IMPRESSION: No abscess. Decrease in fluid collection adjacent to the drain in the gallbladder fossa. Hepatobiliary Scan Nuclear Medicine 05/27/20 08:17 IMPRESSION: Prior cholecystectomy. No evidence of bile leak. Vascular Ultrasound 05/28/20 00:00 IMPRESSION: No evidence of portal vein thrombosis. Abdomen CT 05/29/20 00:00 IMPRESSION: 1. Progressive ascites. No focal drainable abscess. Surgical drain remains in place. 2. Worsening lung aeration. All labs, radiographs, diagnostic studies and EKGs were personally reviewed: Yes In addition, reports of radiographic and diagnostic studies were read: Yes Critical Time Critical Time (minutes): 60 -: The care of a critically ill patient is dynamic. This note represents a static moment in the admission process. Orders and treatments may be given simultaneously and urgently, and time is not account executive sales representative of the treatment process. This patient requires Critical Care secondary to life threatening organ or limb dysfunction. Without Critical Care services, the patient is at risk for increased mortality and morbidity.
--- NOTE | 2020-05-30 06:51 | Operative Report ---
Bedside Procedure - History of Present Illness Indication for Procedure: Hemodynamic monitoring Date: 05/29/20 Provider: ROBERTO MCNEILL - Additional Procedures Arterial Line Time performed: 19:30 Notes: A timeout was completed verifying correct patient procedure and site Sammy's test was performed to ensure adequate perfusion. The patient's left wrist was prepped and draped in sterile fashion. 1% lidocaine was used to anesthetize the area. A 20-gauge arrow arterial line was introduced into the radial artery. The catheter was threaded over the guidewire and the needle was removed with appropriate pulsatile blood return. The catheter was then sutured in place to the skin and a sterile dressing applied. Perfusion to the extremity distal to the point of the catheter insertion was checked and found to be adequate.
[2020-05-30] MEDS: DOCUSATE SODIUM 100 MG CAPSULE PO SCH (10:15)
[2020-05-30] MEDS: POLYETHYLENE GLYCOL 3350 POWDER 17 GM/1 PACKET PO SCH (10:41)
[2020-05-30] MEDS: THIAMINE HCL 200 MG in NORMAL SALINE 50 ML IV SCH ×2 (10:42→21:43)
[2020-05-30] MEDS: LINEZOLID 600 MG/300 ML RTUPB IV SCH ×2 (10:44→21:43)
[2020-05-30] MEDS: LIDOCAINE 5% (700 MG) TRANSDERMAL ADH..PATCH TP SCH (10:44)
[2020-05-30] MEDS: CYANOCOBALAMIN (VITAMIN B-12) INJ 1000 MCG/1 ML VIAL IM SCH (10:47)
[2020-05-30] MEDS: FOLIC ACID 1 MG TABLET PO SCH (10:47)
[2020-05-30] MEDS: CHOLECALCIFEROL (D3) 1,000 UNIT (25 MCG) TABLET PO SCH (10:47)
[2020-05-30] MEDS: SODIUM BICARBONATE 650 MG TABLET PO SCH (10:47)
[2020-05-30] MEDS: ZINC SULFATE 220 MG CAPSULE PO SCH (10:47)
[2020-05-30] MEDS: NORMAL SALINE 10 ML SDV (SCHEDULED) IV SCH ×2 (10:48→21:03)
[2020-05-30] MEDS ORDERED: WATER IV SCH ×2 (13:00→14:35)
[2020-05-30] MEDS ORDERED: DEXTROSE 5% IV SCH ×2 (13:00→14:35)
[2020-05-30] MEDS ORDERED: ASCORBIC ACID IV SCH ×2 (13:00→14:35)
--- NOTE | 2020-05-30 13:21 | PDOC PROGRESS REPORT ---
Subjective Progress Note for:: 05/30/20 Subjective:: looks and feels better today Reason For Visit: BILIARY OBSTRUCTION S/P SURGERY Physical Exam Vital Signs: Temp Pulse Resp BP Pulse Ox 98.1 F 108 H 19 115/84 96 05/30/20 12:00 05/30/20 12:00 05/30/20 12:00 05/30/20 12:00 05/30/20 12:00 Intake & Output 05/29/20 05/30/20 05/31/20 06:59 06:59 06:59 Intake Total 1100 2702 1127 Output Total 122 1295 350 Balance 978 1407 777 Weight 118.9 kg 128.2 kg General appearance: PRESENT: no acute distress, mild distress Head exam: PRESENT: normocephalic Eye exam: PRESENT: EOMI Ear exam: PRESENT: normal external ear exam Mouth exam: PRESENT: dry mucosa Teeth exam: PRESENT: edentulous, poor dentation Neck exam: PRESENT: full ROM Respiratory exam: PRESENT: clear to auscultation winter Cardiovascular exam: PRESENT: RRR Pulses: PRESENT: normal radial pulses, normal femoral pulses Breast: PRESENT: Normal GI/Abdominal exam: PRESENT: soft, other - ROSALVA drain serous no bile at this point Rectal exam: PRESENT: deferred Extremities exam: PRESENT: +2 edema Musculoskeletal exam: PRESENT: full ROM Neurological exam: PRESENT: alert, awake, oriented to person, oriented to place Psychiatric exam: PRESENT: depressed Skin exam: PRESENT: dry Results Laboratory Results: 05/30/20 04:12 05/30/20 04:12 05/29/20 05/29/20 05/29/20 10:00 14:25 15:00 WBC 32.3 H* RBC 3.02 L Hgb 7.4 L Hct 24.8 L MCV 82 MCH 24.5 L MCHC 29.9 L RDW 23.9 H Plt Count 275 Seg Neutrophils % Carbonic Acid 0.67 L HCO3/H2CO3 Ratio 13:1 ABG pH 7.21 L ABG pCO2 22.4 L ABG pO2 63.8 L ABG HCO3 8.8 L ABG O2 Saturation 88.5 L ABG Base Excess -17.4 FiO2 21% Sodium 132.8 L Potassium 4.9 Chloride 111 H Carbon Dioxide 8 L* Anion Gap 14 BUN 21 H Creatinine 2.89 H Est GFR ( Amer) 21 L Glucose 411 H* Lactic Acid Calcium 7.7 L Total Bilirubin AST Alkaline Phosphatase Ammonia C-Reactive Protein Total Protein Albumin 05/29/20 05/29/20 05/29/20 17:22 17:22 17:22 WBC RBC Hgb Hct MCV MCH MCHC RDW Plt Count Seg Neutrophils % Carbonic Acid HCO3/H2CO3 Ratio ABG pH ABG pCO2 ABG pO2 ABG HCO3 ABG O2 Saturation ABG Base Excess FiO2 Sodium Potassium Chloride Carbon Dioxide Anion Gap BUN Creatinine Est GFR ( Amer) Glucose Lactic Acid Cancelled Calcium Total Bilirubin AST Alkaline Phosphatase Ammonia 21.8 C-Reactive Protein 258.7 H Total Protein Albumin 05/29/20 05/29/20 05/29/20 19:00 20:20 23:02 WBC RBC Hgb Hct MCV MCH MCHC RDW Plt Count Seg Neutrophils % Carbonic Acid 0.72 L HCO3/H2CO3 Ratio 14:1 ABG pH 7.25 L ABG pCO2 24.0 L ABG pO2 96.0 ABG HCO3 10.3 L ABG O2 Saturation 96.4 ABG Base Excess -15.5 FiO2 2L Sodium 130.0 L Potassium 5.2 H Chloride 107 Carbon Dioxide 13 L Anion Gap 10 BUN 23 H Creatinine 3.17 H Est GFR ( Amer) 19 L Glucose 83 Lactic Acid 11.3 H Calcium 7.8 L Total Bilirubin 3.9 H AST 1079 H Alkaline Phosphatase 70 Ammonia C-Reactive Protein Total Protein 4.7 L Albumin 1.6 L 05/29/20 05/30/20 05/30/20 23:02 04:12 04:12 WBC 27.7 H RBC 2.91 L Hgb 7.2 L Hct 24.1 L MCV 83 MCH 24.8 L MCHC 30.0 L RDW 23.6 H Plt Count 192 Seg Neutrophils % Not Reportable Carbonic Acid HCO3/H2CO3 Ratio ABG pH ABG pCO2 ABG pO2 ABG HCO3 ABG O2 Saturation ABG Base Excess FiO2 Sodium 131.5 L Potassium 5.3 H Chloride 107 Carbon Dioxide 15 L Anion Gap 10 BUN 25 H Creatinine 3.02 H Est GFR ( Amer) 20 L Glucose 78 Lactic Acid 9.1 H Calcium 8.1 L Total Bilirubin AST Alkaline Phosphatase Ammonia C-Reactive Protein Total Protein Albumin 05/30/20 05/30/20 05:20 05:20 WBC RBC Hgb Hct MCV MCH MCHC RDW Plt Count Seg Neutrophils % Carbonic Acid 0.76 L HCO3/H2CO3 Ratio 17:1 ABG pH 7.35 ABG pCO2 25.2 L ABG pO2 95.5 ABG HCO3 13.6 L ABG O2 Saturation 97.1 ABG Base Excess -10.7 FiO2 28% Sodium Potassium Chloride Carbon Dioxide Anion Gap BUN Creatinine Est GFR ( Amer) Glucose Lactic Acid 6.7 H Calcium Total Bilirubin AST Alkaline Phosphatase Ammonia C-Reactive Protein Total Protein Albumin 05/14/20 05/15/20 15:18 06:45 Troponin I < 0.012 < 0.012 Impressions: Abdomen Ultrasound 05/07/20 04:47 IMPRESSION: 1. Dilation of the common bile duct again identified measuring 1.2 cm. 2. Hepatic steatosis and hepatomegaly. 3. Prior cholecystectomy. PICC Line Insertion 05/14/20 00:00 IMPRESSION: SUCCESSFUL PLACEMENT OF A 5 FR DUAL LUMEN 42 CM PICC IN THE LEFT BASILIC VEIN. Venous Doppler Study 05/16/20 00:00 IMPRESSION: NO EVIDENCE DVT OR SVT IN EITHER LEG. Chest X-Ray 05/22/20 00:00 IMPRESSION: Minimal right basilar airspace disease most likely atelectasis. PICC line has been slightly withdrawn when compared to placement images dated May 14. Catheter tip overlies the innominate vein on the current study. Abdomen/Pelvis CT 05/23/20 00:00 IMPRESSION: No abscess. Decrease in fluid collection adjacent to the drain in the gallbladder fossa. Hepatobiliary Scan Nuclear Medicine 05/27/20 08:17 IMPRESSION: Prior cholecystectomy. No evidence of bile leak. Vascular Ultrasound 05/28/20 00:00 IMPRESSION: No evidence of portal vein thrombosis. Abdomen CT 05/29/20 00:00 IMPRESSION: 1. Progressive ascites. No focal drainable abscess. Surgical drain remains in place. 2. Worsening lung aeration. Assessment & Plan - Diagnosis (1) Anemia Qualifiers: Anemia type: iron deficiency Iron deficiency anemia type: unspecified iron deficiency Qualified Code(s): D50.9 - Iron deficiency anemia, unspecified Is this a current diagnosis for this admission?: Yes - Time Time Spent: 30 to 50 Minutes Critical Time spent with patient: 35 or more minutes Smoking Cessation Education: 3 to 10 minutes Medications reviewed and adjusted accordingly: No Anticipated Discharge Disposition: Home, Self Care Anticipated Discharge Timeframe: when bed available - Plan Summary Plan Summary: Patient is somewhat improved overnight with IV rehydration. Creatinine stable white blood count slightly down to 27. AST markedly elevated. Discussed case with Dr. Richards in ICU who feels that may be cholangitic versus a possible hepatic abscess not being seen on CT scan. Currently with improvement of her vital signs and her metabolic status with a drop in her lactate is felt that at this point would hold off on exploratory laparotomy with a abdominal washout we will continue antibiotics and IV hydration for now. We will follow closely and if necessary consider exploratory laparotomy in the next day or 2.
[2020-05-30] MEDS: HEPARIN SOD (PORCINE) 5,000 UNIT/ML 1 ML VIAL SUBCUT SCH ×2 (13:36)
[2020-05-30] MEDS ORDERED: HYDROMORPHONE HCL INJ/PF 2 MG/ML AMPULE ONE (14:43)
[2020-05-30] MEDS: HYDROMORPHONE HCL INJ/PF 2 MG/ML AMPULE IV PRN ×2 (15:04→20:26)
--- NOTE | 2020-05-30 15:34 | RADIOLOGY REPORT (SQ) ---
EXAM DESCRIPTION: RUST WBC SCAN WHOLE BODY IMAGES COMPLETED DATE/TIME: 05/30/2020 3:17 pm REASON FOR STUDY: sepsis unknown source COMPARISON: None. RADIONUCLIDE AND DOSE: 14.3 mCi technetium 9 9 tagged white blood cells. ADDITIONAL DRUGS AND DOSES: None. TECHNIQUE: Whole-body planar images 4 hours after administration of radiopharmaceutical. LIMITATIONS: None. FINDINGS: There is normal uptake in the spleen and bone marrow. There is diffuse uptake in the thor ax. IMPRESSION: Diffuse uptake in the chest of uncertain etiology, inflammation versus infection. TECHNICAL DOCUMENTATION: JOB ID: [id number] 2010 [employer]- All Rights Reserved Reading location - IP/workstation name: [email or web address]
[2020-05-30 16:07] LABS: FIBRINOGEN 256 mg/dL (209-497); PARTIAL THROMBOPLASTIN TIME 70.4 SEC (23.5-35.8)
[2020-05-30 16:16] LABS: ALBUMIN 1.6 g/dL (3.5-5.0); ALKALINE PHOSPHATASE 76 U/L (38-126); ASPARTATE AMINO TRANSFERASE 702 U/L (14-36); BILIRUBIN,DIRECT 2.9 mg/dL (0.0-0.4); BILIRUBIN,TOTAL 3.8 mg/dL (0.2-1.3); TOTAL PROTEIN 4.3 g/dL (6.3-8.2)
[2020-05-30 16:20] LABS: PROTHROMBIN TIME 50.6 SEC (11.4-15.4)
--- NOTE | 2020-05-30 16:24 | PDOC PROGRESS REPORT ---
Subjective Progress Note for:: 05/30/20 Subjective:: Patient is in the ICU now. She received a significant amount of fluid yesterday. Her bp is improved some. She claims to be feeling a little better. She has been eating today. She still has abdominal pain but it is slightly better. Reason For Visit: BILIARY OBSTRUCTION S/P SURGERY Physical Exam Vital Signs: Temp Pulse Resp BP Pulse Ox 98.1 F 106 H 16 112/53 L 94 05/30/20 12:00 05/30/20 14:00 05/30/20 14:00 05/30/20 14:00 05/30/20 14:00 Intake & Output 05/29/20 05/30/20 05/31/20 06:59 06:59 06:59 Intake Total 1100 2702 1127 Output Total 122 1295 350 Balance 978 1407 777 Weight 118.9 kg 128.2 kg General appearance: PRESENT: no acute distress, well-developed, well-nourished Mouth exam: PRESENT: moist, neck supple Neck exam: ABSENT: JVD, tracheal deviation Respiratory exam: ABSENT: crackles, wheezes Cardiovascular exam: PRESENT: +S1, +S2, tachycardia GI/Abdominal exam: PRESENT: diminished bowel sounds, distended, hypoactive bowel sounds, tenderness. ABSENT: soft Extremities exam: PRESENT: pedal edema, +2 edema Neurological exam: PRESENT: alert, awake Skin exam: PRESENT: dry, intact, warm Results Laboratory Results: 05/30/20 04:12 05/30/20 04:12 05/07/20 05/29/20 05/29/20 04:10 15:00 17:22 WBC RBC Hgb Hct MCV MCH MCHC RDW Plt Count Seg Neutrophils % Carbonic Acid HCO3/H2CO3 Ratio ABG pH ABG pCO2 ABG pO2 ABG HCO3 ABG O2 Saturation ABG Base Excess FiO2 Sodium 132.8 L Potassium 4.9 Chloride 111 H Carbon Dioxide 8 L* Anion Gap 14 BUN 21 H Creatinine 2.89 H Est GFR ( Amer) 21 L Glucose 411 H* Lactic Acid Calcium 7.7 L Total Bilirubin AST Alkaline Phosphatase Ammonia 21.8 C-Reactive Protein Total Protein Albumin Blood Type AB POSITIVE Antibody Screen POSITIVE 05/29/20 05/29/20 05/29/20 17:22 17:22 19:00 WBC RBC Hgb Hct MCV MCH MCHC RDW Plt Count Seg Neutrophils % Carbonic Acid HCO3/H2CO3 Ratio ABG pH ABG pCO2 ABG pO2 ABG HCO3 ABG O2 Saturation ABG Base Excess FiO2 Sodium Potassium Chloride Carbon Dioxide Anion Gap BUN Creatinine Est GFR ( Amer) Glucose Lactic Acid Cancelled 11.3 H Calcium Total Bilirubin AST Alkaline Phosphatase Ammonia C-Reactive Protein 258.7 H Total Protein Albumin Blood Type Antibody Screen 05/29/20 05/29/20 05/29/20 20:20 23:02 23:02 WBC RBC Hgb Hct MCV MCH MCHC RDW Plt Count Seg Neutrophils % Carbonic Acid 0.72 L HCO3/H2CO3 Ratio 14:1 ABG pH 7.25 L ABG pCO2 24.0 L ABG pO2 96.0 ABG HCO3 10.3 L ABG O2 Saturation 96.4 ABG Base Excess -15.5 FiO2 2L Sodium 130.0 L Potassium 5.2 H Chloride 107 Carbon Dioxide 13 L Anion Gap 10 BUN 23 H Creatinine 3.17 H Est GFR ( Amer) 19 L Glucose 83 Lactic Acid 9.1 H Calcium 7.8 L Total Bilirubin 3.9 H AST 1079 H Alkaline Phosphatase 70 Ammonia C-Reactive Protein Total Protein 4.7 L Albumin 1.6 L Blood Type Antibody Screen 05/30/20 05/30/20 05/30/20 04:12 04:12 05:20 WBC 27.7 H RBC 2.91 L Hgb 7.2 L Hct 24.1 L MCV 83 MCH 24.8 L MCHC 30.0 L RDW 23.6 H Plt Count 192 Seg Neutrophils % Not Reportable Carbonic Acid HCO3/H2CO3 Ratio ABG pH ABG pCO2 ABG pO2 ABG HCO3 ABG O2 Saturation ABG Base Excess FiO2 Sodium 131.5 L Potassium 5.3 H Chloride 107 Carbon Dioxide 15 L Anion Gap 10 BUN 25 H Creatinine 3.02 H Est GFR ( Amer) 20 L Glucose 78 Lactic Acid 6.7 H Calcium 8.1 L Total Bilirubin AST Alkaline Phosphatase Ammonia C-Reactive Protein Total Protein Albumin Blood Type Antibody Screen 05/30/20 05:20 WBC RBC Hgb Hct MCV MCH MCHC RDW Plt Count Seg Neutrophils % Carbonic Acid 0.76 L HCO3/H2CO3 Ratio 17:1 ABG pH 7.35 ABG pCO2 25.2 L ABG pO2 95.5 ABG HCO3 13.6 L ABG O2 Saturation 97.1 ABG Base Excess -10.7 FiO2 28% Sodium Potassium Chloride Carbon Dioxide Anion Gap BUN Creatinine Est GFR ( Amer) Glucose Lactic Acid Calcium Total Bilirubin AST Alkaline Phosphatase Ammonia C-Reactive Protein Total Protein Albumin Blood Type Antibody Screen 05/14/20 05/15/20 15:18 06:45 Troponin I < 0.012 < 0.012 Impressions: Abdomen Ultrasound 05/07/20 04:47 IMPRESSION: 1. Dilation of the common bile duct again identified measuring 1.2 cm. 2. Hepatic steatosis and hepatomegaly. 3. Prior cholecystectomy. PICC Line Insertion 05/14/20 00:00 IMPRESSION: SUCCESSFUL PLACEMENT OF A 5 FR DUAL LUMEN 42 CM PICC IN THE LEFT BASILIC VEIN. Venous Doppler Study 05/16/20 00:00 IMPRESSION: NO EVIDENCE DVT OR SVT IN EITHER LEG. Chest X-Ray 05/22/20 00:00 IMPRESSION: Minimal right basilar airspace disease most likely atelectasis. PICC line has been slightly withdrawn when compared to placement images dated May 14. Catheter tip overlies the innominate vein on the current study. Abdomen/Pelvis CT 05/23/20 00:00 IMPRESSION: No abscess. Decrease in fluid collection adjacent to the drain in the gallbladder fossa. Hepatobiliary Scan Nuclear Medicine 05/27/20 08:17 IMPRESSION: Prior cholecystectomy. No evidence of bile leak. Vascular Ultrasound 05/28/20 00:00 IMPRESSION: No evidence of portal vein thrombosis. Abdomen CT 05/29/20 00:00 IMPRESSION: 1. Progressive ascites. No focal drainable abscess. Surgical drain remains in place. 2. Worsening lung aeration. WBC Scan Nuclear Medicine 05/30/20 07:00 IMPRESSION: Diffuse uptake in the chest of uncertain etiology, inflammation versus infection. Assessment & Plan - Diagnosis (1) KEERTHI (acute kidney injury) Is this a current diagnosis for this admission?: Yes Plan: nonoliguric, due to ATN and dehydration. Creatinine has slightly improved to from 3.1 to 3.0. Continue with back catheter and fluids, BP has improved which will help increase blood flow to her kidneys. Diuretics are stopped for now. Follow up with labs tomorrow. (2) Sepsis Qualifiers: Sepsis type: sepsis due to unspecified organism Severe sepsis acute organ dysfunction type: acute renal failure Is this a current diagnosis for this admission?: Yes Plan: Looks to possible be related to cholangitis, white count looks to be decreasing at this time. On meropenem and linezolid at this time. Also on sodium bicarb. (3) Hyponatremia Is this a current diagnosis for this admission?: Yes Plan: stable at this time. (4) Metabolic acidosis Plan: improving on IV sodium bicarb (5) Biliary stricture Is this a current diagnosis for this admission?: Yes Plan: which was surgically fixed. Could be a possible source of infection. (6) Leukocytosis Is this a current diagnosis for this admission?: Yes Plan: improving, now on meropenem and linezolid at this time (7) Cirrhosis of liver Plan: biopsy results are still pending. Another factor that could be affecting the kidneys would be a hepatorenal syndrom. (8) Acute postoperative pain of abdomen Plan: per surgery (9) Anemia Qualifiers: Anemia type: iron deficiency Iron deficiency anemia type: unspecified iron deficiency Qualified Code(s): D50.9 - Iron deficiency anemia, unspecified Is this a current diagnosis for this admission?: Yes (10) Edema Qualifiers: Edema type: due to malnutrition Is this a current diagnosis for this admission?: Yes Plan: holding on diuretics, likely swollen due to 3rd spacing from low albumin and s epsis. (11) Abdominal pain Qualifiers: Abdominal location: generalized Qualified Code(s): R10.84 - Generalized abdominal pain Is this a current diagnosis for this admission?: Yes Plan: per surgery (12) Constipation Is this a current diagnosis for this admission?: Yes (13) Heme positive stool Is this a current diagnosis for this admission?: Yes Plan: per hospitalist services (14) H/O gastric bypass Is this a current diagnosis for this admission?: Yes
[2020-05-30] MEDS ORDERED: PHYTONADIONE INJ 10 MG/1 ML AMPULE IV ONE (16:55)
[2020-05-30 17:16] LABS: ACETAMINOPHEN < 10 ug/mL (10-30)
[2020-05-30 18:34] LABS: ARTERIAL BLOOD BASE EXCESS -5.4 mmol/L; ARTERIAL BLOOD H2CO3 0.89 mmol/L (1.05-1.35); ARTERIAL BLOOD HCO3 18.5 mmol/L (20-24); ARTERIAL BLOOD O2 SATURATION 95.4 % (94-98); ARTERIAL BLOOD PCO2 29.6 mmHg (35-45); ARTERIAL BLOOD PH 7.41 (7.35-7.45); ARTERIAL BLOOD PO2 74.7 mmHg (80-100); ARTERIAL BLOOD TOTAL CO2 19.4 mmol/L (21-25)
[2020-05-30 18:35] LABS: ARTERIAL BLOOD FIO2 ROOM AIR
--- NOTE | 2020-05-30 18:37 | PDOC CRITICAL CARE PROG REPORT ---
General Date:: 05/30/20 ICU Day:: 1 Hospital Day:: 24 Resuscitation Status: Full Code Medical Power of Telecommunications Professional: DaughterJessica Events in the past 12 to 24 Hours:: 05.30.2020: Patient transferred from medical floor secondary to low blood pressure tachycardia and evidence of sepsis. She had profound transaminitis as well and acute encephalopathy. She was seen and admitted by the critical care nurse practitioner who did an outstanding job resuscitation. Patient received 3 L of fluid with improvement in her overall condition and improvement in her mentation. She had significant lactic acidosis which is improved as well. Patient endorses pain in her abdomen. She has not required any vasopressor therapy. Review of systems relevant to events:: 05.30.2020: Patient underwent tagged white blood cell scan today which had been ordered alejandro or to her arrival in the ICU. There was distinct significant uptake in the lungs. Notably her chest x-ray shows only minimal effusions and atelectasis. She was started on broad-spectrum antibiotics on arrival in the ICU with meropenem and linezolid. She does have VRE in her urine. She does not feel nauseous but has abdominal pain. She does feel slightly short of breath. 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 Reason for ICU Addmission:: Sepsis - Medications: Medications reviewed and adjusted accordingly: Yes Vasopressors:: None Sedation:: Dilaudid for pain Physical Exam Vital Signs: Temp Pulse Resp BP Pulse Ox 98.1 F 106 H 14 97/50 L 98 05/30/20 16:00 05/30/20 16:00 05/30/20 18:00 05/30/20 16:00 05/30/20 18:00 Intake & Output 05/29/20 05/30/20 05/31/20 06:59 06:59 06:59 Intake Total 1100 2702 1127 Output Total 122 1295 580 Balance 978 1407 547 Weight 118.9 kg 128.2 kg Weight/Height Weight 128.2 kg Height 5 ft 8 in General appearance: PRESENT: mild distress, morbidly obese Exam: 49-year-old black female who appears older than stated age. She appears chronically and critically ill. She is lethargic but does awaken, mild distress when abdomen is examined Head exam: PRESENT: atraumatic, normocephalic Eye exam: PRESENT: EOMI, PERRLA, scleral icterus. ABSENT: conjunctival injection, nystagmus Mouth exam: PRESENT: dry mucosa, neck supple Teeth exam: PRESENT: dental caries, poor dentation Neck exam: ABSENT: carotid bruit, JVD, lymphadenopathy, meningismus, tenderness, thyromegaly, tracheal deviation Respiratory exam: PRESENT: clear to auscultation winter, decreased breath sounds - At bases, tachypnea. ABSENT: accessory muscle use, retraction, unlabored - Jina, wheezes Cardiovascular exam: PRESENT: RRR, +S1, +S2, tachycardia. ABSENT: rubs Pulses: ABSENT: normal dorsalis pedis pul Vascular exam: PRESENT: normal capillary refill. ABSENT: pallor GI/Abdominal exam: PRESENT: diminished bowel sounds, firm, guarding, Ratliff's sign, organolmegaly, soft, tenderness, other - Diffusely tender especially right upper quadrant. Liver feels enlarged but no mass. ABSENT: ascites, distended, mass Rectal exam: PRESENT: deferred Gentrourinary exam: PRESENT: indwelling catheter Extremities exam: PRESENT: pedal edema, +2 edema Musculoskeletal exam: ABSENT: deformity, dislocation Neurological exam: PRESENT: altered, awake, CN II-XII grossly intact. ABSENT: motor sensory deficit Psychiatric exam: PRESENT: flat affect Skin exam: PRESENT: dry, intact, warm. ABSENT: cyanosis, mottled, pallor, rash Tubes/Lines: PRESENT: Arterial Catheter, Other - Damico type urinary catheter Laboratory/Radiographs Laboratory Results: 05/30/20 04:12 05/30/20 04:12 05/07/20 05/29/20 05/29/20 04:10 17:22 17:22 WBC RBC Hgb Hct MCV MCH MCHC RDW Plt Count Seg Neutrophils % Carbonic Acid HCO3/H2CO3 Ratio ABG pH ABG pCO2 ABG pO2 ABG HCO3 ABG O2 Saturation ABG Base Excess FiO2 Sodium Potassium Chloride Carbon Dioxide Anion Gap BUN Creatinine Est GFR ( Amer) Glucose Lactic Acid Cancelled Calcium Ferritin Total Bilirubin AST Alkaline Phosphatase Ammonia 21.8 C-Reactive Protein Total Protein Albumin Blood Type AB POSITIVE Antibody Screen POSITIVE 05/29/20 05/29/20 05/29/20 17:22 19:00 20:20 WBC RBC Hgb Hct MCV MCH MCHC RDW Plt Count Seg Neutrophils % Carbonic Acid 0.72 L HCO3/H2CO3 Ratio 14:1 ABG pH 7.25 L ABG pCO2 24.0 L ABG pO2 96.0 ABG HCO3 10.3 L ABG O2 Saturation 96.4 ABG Base Excess -15.5 FiO2 2L Sodium Potassium Chloride Carbon Dioxide Anion Gap BUN Creatinine Est GFR ( Amer) Glucose Lactic Acid 11.3 H Calcium Ferritin Total Bilirubin AST Alkaline Phosphatase Ammonia C-Reactive Protein 258.7 H Total Protein Albumin Blood Type Antibody Screen 05/29/20 05/29/20 05/30/20 23:02 23:02 04:12 WBC RBC Hgb Hct MCV MCH MCHC RDW Plt Count Seg Neutrophils % Carbonic Acid HCO3/H2CO3 Ratio ABG pH ABG pCO2 ABG pO2 ABG HCO3 ABG O2 Saturation ABG Base Excess FiO2 Sodium 130.0 L 131.5 L Potassium 5.2 H 5.3 H Chloride 107 107 Carbon Dioxide 13 L 15 L Anion Gap 10 10 BUN 23 H 25 H Creatinine 3.17 H 3.02 H Est GFR ( Amer) 19 L 20 L Glucose 83 78 Lactic Acid 9.1 H Calcium 7.8 L 8.1 L Ferritin Total Bilirubin 3.9 H AST 1079 H Alkaline Phosphatase 70 Ammonia C-Reactive Protein Total Protein 4.7 L Albumin 1.6 L Blood Type Antibody Screen 05/30/20 05/30/20 05/30/20 04:12 05:20 05:20 WBC 27.7 H RBC 2.91 L Hgb 7.2 L Hct 24.1 L MCV 83 MCH 24.8 L MCHC 30.0 L RDW 23.6 H Plt Count 192 Seg Neutrophils % Not Reportable Carbonic Acid 0.76 L HCO3/H2CO3 Ratio 17:1 ABG pH 7.35 ABG pCO2 25.2 L ABG pO2 95.5 ABG HCO3 13.6 L ABG O2 Saturation 97.1 ABG Base Excess -10.7 FiO2 28% Sodium Potassium Chloride Carbon Dioxide Anion Gap BUN Creatinine Est GFR ( Amer) Glucose Lactic Acid 6.7 H Calcium Ferritin Total Bilirubin AST Alkaline Phosphatase Ammonia C-Reactive Protein Total Protein Albumin Blood Type Antibody Screen 05/30/20 05/30/20 05/30/20 15:32 15:32 15:32 WBC RBC Hgb Hct MCV MCH MCHC RDW Plt Count Seg Neutrophils % Carbonic Acid HCO3/H2CO3 Ratio ABG pH ABG pCO2 ABG pO2 ABG HCO3 ABG O2 Saturation ABG Base Excess FiO2 Sodium Potassium Chloride Carbon Dioxide Anion Gap BUN Creatinine Est GFR ( Amer) Glucose Lactic Acid 4.5 H Calcium Ferritin 1060.00 H Total Bilirubin 3.8 H AST 702 H Alkaline Phosphatase 76 Ammonia 15.4 C-Reactive Protein 257.0 H Total Protein 4.3 L Albumin 1.6 L Blood Type Antibody Screen 05/14/20 05/15/20 15:18 06:45 Troponin I < 0.012 < 0.012 Impressions: Abdomen Ultrasound 05/07/20 04:47 IMPRESSION: 1. Dilation of the common bile duct again identified measuring 1.2 cm. 2. Hepatic steatosis and hepatomegaly. 3. Prior cholecystectomy. PICC Line Insertion 05/14/20 00:00 IMPRESSION: SUCCESSFUL PLACEMENT OF A 5 FR DUAL LUMEN 42 CM PICC IN THE LEFT BASILIC VEIN. Venous Doppler Study 05/16/20 00:00 IMPRESSION: NO EVIDENCE DVT OR SVT IN EITHER LEG. Chest X-Ray 05/22/20 00:00 IMPRESSION: Minimal right basilar airspace disease most likely atelectasis. PICC line has been slightly withdrawn when compared to placement images dated May 14. Catheter tip overlies the innominate vein on the current study. Abdomen/Pelvis CT 05/23/20 00:00 IMPRESSION: No abscess. Decrease in fluid collection adjacent to the drain in the gallbladder fossa. Hepatobiliary Scan Nuclear Medicine 05/27/20 08:17 IMPRESSION: Prior cholecystectomy. No evidence of bile leak. Vascular Ultrasound 05/28/20 00:00 IMPRESSION: No evidence of portal vein thrombosis. Abdomen CT 05/29/20 00:00 IMPRESSION: 1. Progressive ascites. No focal drainable abscess. Surgical drain remains in place. 2. Worsening lung aeration. WBC Scan Nuclear Medicine 05/30/20 07:00 IMPRESSION: Diffuse uptake in the chest of uncertain etiology, inflammation versus infection. All labs, radiographs, diagnostic studies and EKGs were personally reviewed: Yes In addition, reports of radiographic and diagnostic studies were read: Yes Assessment and Plan - Diagnosis (1) Sepsis with acute organ dysfunction and septic shock Qualifiers: Sepsis type: sepsis due to unspecified organism Severe sepsis acute organ dysfunction type: acute renal failure Acute renal failure type: with acute tubular necrosis Qualified Code(s): A41.9 - Sepsis, unspecified organism; R65.21 - Severe sepsis with septic shock; N17.0 - Acute kidney failure with tubular necrosis Is this a current diagnosis for this admission?: Yes (2) Acute metabolic encephalopathy Is this a current diagnosis for this admission?: Yes (3) Lactic acidosis Is this a current diagnosis for this admission?: Yes (4) Transaminitis Is this a current diagnosis for this admission?: Yes (5) Cholangitis Is this a current diagnosis for this admission?: Yes (6) Hepatitis Is this a current diagnosis for this admission?: Yes Plan Summary: 05.30.2020: Respiratory: Patient has a mild respiratory distress secondary to atelectasis and abdominal pain. Will attempt to control this with Dilaudid. ABG pending to determine pH and O2 status. Given her size and obesity and abdominal pain she is at risk for hypercarbic respiratory failure. Her tagged white blood cell scan had significant uptake in the lungs this may be reflective of pleural fluid which is infected and or occult pneumonia. CT scan of the lung showed mild consolidation and mild effusion. Continue on broad-spectrum antibiotics Infectious: Patient appears to have sepsis with shock. She did not have significant hypotension but did have low normal blood pressure before coming to the ICU. She has responded to volume and her lactic acidosis has improved. Is difficult to know where this infection might be coming from however the most suspected site is the liver bed. That being said there was not significant uptake of white blood cells in that area. She has had a ROSALVA drain in since surgery and the output from this has intermittently been bilious although this is not happened in the ICU. We will send cultures. Awaiting blood cultures. Urine has been unremarkable. Cardiac: Patient had tachycardia and lactic acidosis which is improved. Cont inue to monitor accordingly. She is at risk for decompensation Hematologic/Oncologic: Significant leukocytosis from infection. Continue to monitor and watch for bleeding. She has an acquired coagulopathy for which we will give vitamin K to determine if there is any improvement. Endocrine: No active issues however will need to be concerned about hypoglycemia if she has fulminant hepatic failure. Renal: Patient has acute renal failure. This is a combination of acute tubular necrosis and dehydration. Will not diurese at this point and will give high concentration albumin. She does have peripheral anasarca but this is related to her illness and sepsis and not secondary to volume overload. Metabolic: Patient has mild hyperkalemia. We will continue to monitor. She does not need dialysis and will continue to monitor. Alimentary: By far the most serious concern is the transaminitis. She has improved on repeat labs. I have discontinued the micafungin on and off chance that is causing the transaminitis synergistically with an underlying process. Her HIDA scan was negative for any bile leak. She does have partially congealed substances in the ROSALVA tube and I have cultured this. And concern that there may be an infection in the liver bed. We will continue antibiotics and provide IV fluids and monitor her course accordingly. Neurologic: Patient has acute metabolic encephalopathy related to her illness. She is more awake this afternoon and was noted to be more awake this morning with volume given overnight. We will continue to monitor and reevaluate ammonia level. Sedation/analgesia: We will provide analgesia in the form of Dilaudid as needed for abdominal pain. Lines/Tubes: Patient has a PICC line and a left radial arterial line. Other/family: Met with carrington Lopez and discussed case care and condition. Critical Time Critical Time (minutes): 68 Level of Care: ICU Anticipated discharge: Acute Rehab Anticipated DC Timeframe: Other - Undetermined timeframe given current clinical condition -: 1. The care of a critical patient is a dynamic process. This note is a primary care sales representative synopsis but static in nature. The timeframe for treatments given in order is not necessarily the actual time these treatments may have been done. 2. This patient requires critical care secondary to ongoing requirements for therapy not offered or safe outside the critical care environment. Transfer to a lower level of care will result in altered life or limb morbidity and mortality. 3. Multidisciplinary rounds completed. 4. ABCDE bundle addressed.
[2020-05-30] MEDS: ALBUMIN HUMAN 12.5 GM/50 ML RTUINJ IV SCH ×4 (20:27→21:43)
[2020-05-30 20:28] LABS: BLOOD UREA NITROGEN 26 mg/dL (7-20); CHLORIDE 96 mmol/L (98-107); GLUCOSE 358 mg/dL (75-110)
[2020-05-30 20:50] LABS: ANION GAP 8 (5-19); CARBON DIOXIDE 25 mmol/L (22-30)
[2020-05-30 20:51] LABS: POTASSIUM 4.3 mmol/L (3.6-5.0)
[2020-05-30] MEDS: ASCORBIC ACID IV SCH (20:57)
[2020-05-30] MEDS: WATER IV SCH (20:57)
[2020-05-30] MEDS: DEXTROSE 5% IV SCH (20:57)
[2020-05-31] MEDS: MEROPENEM 1 GM in NORMAL SALINE 50 ML IV SCH ×2 (01:48→16:19)
[2020-05-31] MEDS: HYDROCORTISONE SOD SUCCINATE INJ/PF 100 MG/2 ML SDV IV SCH ×4 (01:49→19:15)
[2020-05-31] MEDS: ASCORBIC ACID IV SCH ×4 (03:28→21:15)
[2020-05-31] MEDS: DEXTROSE 5% IV SCH ×4 (03:28→21:15)
[2020-05-31] MEDS: WATER IV SCH ×4 (03:28→21:15)
[2020-05-31] MEDS: DEXTROSE 5%-WATER 1000 ML 1,000 ML with SODIUM BICARBONATE 150 MEQ IV PRN ×2 (05:11)
[2020-05-31 05:55] LABS: ARTERIAL BLOOD BASE EXCESS -3.3 mmol/L; ARTERIAL BLOOD H2CO3 0.92 mmol/L (1.05-1.35); ARTERIAL BLOOD HCO3 20.4 mmol/L (20-24); ARTERIAL BLOOD O2 SATURATION 94.6 % (94-98); ARTERIAL BLOOD PCO2 30.5 mmHg (35-45); ARTERIAL BLOOD PH 7.44 (7.35-7.45); ARTERIAL BLOOD PO2 68.5 mmHg (80-100); ARTERIAL BLOOD TOTAL CO2 21.3 mmol/L (21-25)
[2020-05-31 05:56] LABS: ARTERIAL BLOOD FIO2 ROOM AIR
[2020-05-31 06:04] LABS: INTERNATIONAL RATION (INR) 2.53; PROTHROMBIN TIME 27.2 SEC (11.4-15.4)
[2020-05-31 06:05] LABS: PARTIAL THROMBOPLASTIN TIME 61.2 SEC (23.5-35.8)
[2020-05-31 06:07] LABS: D-DIMER 3.69 ug/mL (0.00-0.50)
[2020-05-31 06:17] LABS: ALBUMIN 1.8 g/dL (3.5-5.0); ALKALINE PHOSPHATASE 61 U/L (38-126); ANION GAP 6 (5-19); ASPARTATE AMINO TRANSFERASE 425 U/L (14-36); BILIRUBIN,DIRECT 2.6 mg/dL (0.0-0.4); BILIRUBIN,TOTAL 3.6 mg/dL (0.2-1.3); BLOOD UREA NITROGEN 27 mg/dL (7-20); CARBON DIOXIDE 32 mmol/L (22-30); CHLORIDE 91 mmol/L (98-107); PHOSPHORUS 4.1 mg/dL (2.5-4.5); TOTAL PROTEIN 4.4 g/dL (6.3-8.2); TRIGLYCERIDES 65 mg/dL (<150)
[2020-05-31 06:23] LABS: AMYLASE < 30 U/L (30-110)
[2020-05-31 06:24] LABS: CHOLESTEROL < 50.00 mg/dL (0-200)
[2020-05-31 06:35] LABS: C-REACTIVE PROTEIN 198.9 mg/L (<10.0); DIRECT LDL < 30 mg/dL (<100)
[2020-05-31 06:37] LABS: GLUCOSE 432 mg/dL (75-110)
--- NOTE | 2020-05-31 09:00 | RADIOLOGY REPORT (SQ) ---
EXAM DESCRIPTION: CHEST SINGLE VIEW IMAGES COMPLETED DATE/TIME: 05/31/2020 6:47 am REASON FOR STUDY: sepsis COMPARISON: 05/22/2020 EXAM PARAMETERS: NUMBER OF VIEWS: One view. TECHNIQUE: Single frontal radiographic view of the chest acquired. RADIATION DOSE: NA LIMITATIONS: None. FINDINGS: LUNGS AND PLEURA: Diffuse bilateral airspace disease. Linear atelectasis in the left midl arnulfo field. No effusions. MEDIASTINUM AND HILAR STRUCTURES: No masses. Contour normal. HEART AND VASCULAR STRUCTURES: Heart normal in size. Normal vasculature. BONES: No acute findings. HARDWARE: None in the chest. OTHER: No other significant finding. IMPRESSION: Diffuse bilateral airspace disease slightly more marked centrally. This could represent vascular congestion or multifocal atypical pneumonia. TECHNICAL DOCUMENTATION: JOB ID: [id number]- All Rights Reserved Reading location - IP/workstation name: [email or web address]
--- NOTE | 2020-05-31 09:36 | PDOC PROGRESS REPORT ---
Subjective Progress Note for:: 05/31/20 Subjective:: awake, responsive Reason For Visit: BILIARY OBSTRUCTION S/P SURGERY Physical Exam Vital Signs: Temp Pulse Resp BP Pulse Ox 97.8 F 111 H 16 109/71 98 05/31/20 01:40 05/30/20 23:36 05/31/20 06:19 05/31/20 06:19 05/31/20 06:19 Intake & Output 05/30/20 05/31/20 06/01/20 06:59 06:59 06:59 Intake Total 2702 5344 Output Total 1295 1505 Balance 1407 3839 Weight 128.2 kg 132 kg General appearance: PRESENT: no acute distress Head exam: PRESENT: normocephalic Eye exam: PRESENT: EOMI Ear exam: PRESENT: normal external ear exam, TM's normal bilaterally Mouth exam: PRESENT: dry mucosa Teeth exam: PRESENT: dental caries, edentulous, poor dentation Neck exam: PRESENT: full ROM Respiratory exam: PRESENT: clear to auscultation winter Cardiovascular exam: PRESENT: RRR Pulses: PRESENT: normal radial pulses, normal femoral pulses Breast: PRESENT: Normal GI/Abdominal exam: PRESENT: ascites, soft Rectal exam: PRESENT: deferred Extremities exam: PRESENT: full ROM Musculoskeletal exam: PRESENT: full ROM Neurological exam: PRESENT: alert, awake, oriented to person, oriented to place Psychiatric exam: PRESENT: appropriate affect Skin exam: PRESENT: dry Results Laboratory Results: 05/31/20 05:41 05/31/20 05:41 05/07/20 05/30/20 05/30/20 04:10 15:32 15:32 WBC RBC Hgb Hct MCV MCH MCHC RDW Plt Count Seg Neutrophils % Carbonic Acid HCO3/H2CO3 Ratio ABG pH ABG pCO2 ABG pO2 ABG HCO3 ABG O2 Saturation ABG Base Excess FiO2 Sodium Potassium Chloride Carbon Dioxide Anion Gap BUN Creatinine Est GFR ( Amer) Glucose Lactic Acid Calcium Phosphorus Magnesium Ferritin 1060.00 H Total Bilirubin 3.8 H AST 702 H Alkaline Phosphatase 76 Ammonia 15.4 C-Reactive Protein 257.0 H Total Protein 4.3 L Albumin 1.6 L Triglycerides Cholesterol LDL Cholesterol Direct VLDL Cholesterol HDL Cholesterol Amylase Blood Type AB POSITIVE Antibody Screen POSITIVE 05/30/20 05/30/20 05/30/20 15:32 15:32 17:38 WBC RBC Hgb Hct MCV MCH MCHC RDW Plt Count Seg Neutrophils % Carbonic Acid 0.89 L HCO3/H2CO3 Ratio 20:1 ABG pH 7.41 ABG pCO2 29.6 L ABG pO2 74.7 L ABG HCO3 18.5 L ABG O2 Saturation 95.4 ABG Base Excess -5.4 FiO2 ROOM AIR Sodium 129.3 L Potassium 4.3 D Chloride 96 L Carbon Dioxide 25 D Anion Gap 8 BUN 26 H Creatinine 2.72 H Est GFR ( Amer) 22 L Glucose 358 H Lactic Acid 4.5 H Calcium 7.0 L* Phosphorus Magnesium Ferritin Total Bilirubin AST Alkaline Phosphatase Ammonia C-Reactive Protein Total Protein Albumin Triglycerides Cholesterol LDL Cholesterol Direct VLDL Cholesterol HDL Cholesterol Amylase Blood Type Antibody Screen 05/31/20 05/31/20 05/31/20 05:41 05:41 05:41 WBC RBC Hgb Hct MCV MCH MCHC RDW Plt Count Seg Neutrophils % Carbonic Acid 0.92 L HCO3/H2CO3 Ratio 22:1 ABG pH 7.44 ABG pCO2 30.5 L ABG pO2 68.5 L ABG HCO3 20.4 ABG O2 Saturation 94.6 ABG Base Excess -3.3 FiO2 ROOM AIR Sodium 128.9 L Potassium 4.0 Chloride 91 L Carbon Dioxide 32 H Anion Gap 6 BUN 27 H Creatinine 2.59 H Est GFR ( Amer) 24 L Glucose 432 H* Lactic Acid Calcium 7.0 L* Phosphorus 4.1 Magnesium 1.5 L Ferritin 709.00 H Total Bilirubin 3.6 H AST 425 H Alkaline Phosphatase 61 Ammonia 14.8 C-Reactive Protein 198.9 H Total Protein 4.4 L Albumin 1.8 L Triglycerides 65 Cholesterol < 50.00 LDL Cholesterol Direct < 30 VLDL Cholesterol 13.0 HDL Cholesterol 6 L Amylase < 30 L Blood Type Antibody Screen 05/31/20 05/31/20 05:41 05:41 WBC Cancelled RBC Cancelled Hgb Cancelled Hct Cancelled MCV Cancelled MCH Cancelled MCHC Cancelled RDW Cancelled Plt Count Cancelled Seg Neutrophils % Cancelled Carbonic Acid HCO3/H2CO3 Ratio ABG pH ABG pCO2 ABG pO2 ABG HCO3 ABG O2 Saturation ABG Base Excess FiO2 Sodium Potassium Chloride Carbon Dioxide Anion Gap BUN Creatinine Est GFR ( Amer) Glucose Lactic Acid 3.2 H Calcium Phosphorus Magnesium Ferritin Total Bilirubin AST Alkaline Phosphatase Ammonia C-Reactive Protein Total Protein Albumin Triglycerides Cholesterol LDL Cholesterol Direct VLDL Cholesterol HDL Cholesterol Amylase Blood Type Antibody Screen 05/14/20 05/15/20 15:18 06:45 Troponin I < 0.012 < 0.012 Impressions: Abdomen Ultrasound 05/07/20 04:47 IMPRESSION: 1. Dilation of the common bile duct again identified measuring 1.2 cm. 2. Hepatic steatosis and hepatomegaly. 3. Prior cholecystectomy. PICC Line Insertion 05/14/20 00:00 IMPRESSION: SUCCESSFUL PLACEMENT OF A 5 FR DUAL LUMEN 42 CM PICC IN THE LEFT BASILIC VEIN. Venous Doppler Study 05/16/20 00:00 IMPRESSION: NO EVIDENCE DVT OR SVT IN EITHER LEG. Abdomen/Pelvis CT 05/23/20 00:00 IMPRESSION: No abscess. Decrease in fluid collection adjacent to the drain in the gallbladder fossa. Hepatobiliary Scan Nuclear Medicine 05/27/20 08:17 IMPRESSION: Prior cholecystectomy. No evidence of bile leak. Vascular Ultrasound 05/28/20 00:00 IMPRESSION: No evidence of portal vein thrombosis. Abdomen CT 05/29/20 00:00 IMPRESSION: 1. Progressive ascites. No focal drainable abscess. Surgical drain remains in place. 2. Worsening lung aeration. WBC Scan Nuclear Medicine 05/30/20 07:00 IMPRESSION: Diffuse uptake in the chest of uncertain etiology, inflammation versus infection. Chest X-Ray 05/31/20 06:00 IMPRESSION: Diffuse bilateral airspace disease slightly more marked centrally. This could represent vascular congestion or multifocal atypical pneumonia. Assessment & Plan - Diagnosis (1) Anemia Qualifiers: Anemia type: iron deficiency Iron deficiency anemia type: unspecified iron deficiency Qualified Code(s): D50.9 - Iron deficiency anemia, unspecified Is this a current diagnosis for this admission?: Yes - Time Time Spent: 30 to 50 Minutes Critical Time spent with patient: 25-34 minutes Medications reviewed and adjusted accordingly: No Anticipated Discharge Disposition: Home with Home Health Anticipated Discharge Timeframe: unknowo - Plan Summary Plan Summary: pt slightly improved since in icu labs today pending recent cxr suggests pneumonia tagged wbc study neg for infectious process in abd suggest pneumonia lft's improving wbc today pending plan cont iv abx physical therapy no plan for surgical intervention at this time. will cont to follow.
[2020-05-31 10:32] LABS: MEAN CORPUSCULAR HEMOGLOBIN 24.9 pg (27.0-33.4); RED CELL DISTRIBUTION WIDTH 24.7 % (11.5-14.0)
[2020-05-31] MEDS: NORMAL SALINE 10 ML SDV (SCHEDULED) IV SCH ×2 (11:44→22:05)
[2020-05-31] MEDS: FOLIC ACID 1 MG TABLET PO SCH (11:51)
[2020-05-31] MEDS: CHOLECALCIFEROL (D3) 1,000 UNIT (25 MCG) TABLET PO SCH (11:51)
[2020-05-31] MEDS: HYDROMORPHONE HCL INJ/PF 2 MG/ML AMPULE IV PRN (11:52)
[2020-05-31] MEDS: FAMOTIDINE INJ/PF 20 MG/2 ML SDV IV SCH ×2 (11:52→22:07)
[2020-05-31] MEDS: ZINC SULFATE 220 MG CAPSULE PO SCH (11:52)
[2020-05-31 11:53] LABS: ABSOLUTE BASOPHILS # (AUTO) 0.1 10^3/uL (0.0-0.2); ABSOLUTE LYMPHOCYTES (AUTO) 1.5 10^3/uL (0.5-4.7); ABSOLUTE MONOCYTES (AUTO) 1.2 10^3/uL (0.1-1.4); ABSOLUTE NEUT (AUTO) 18.2 10^3/uL (1.7-8.2); BASOPHILS % (AUTO) 0.4 % (0-2); EOSINOPHILS % (AUTO) 0.1 % (0-6); HEMATOCRIT 21.2 % (36.0-47.0); LYMPHOCYTES % (AUTO) 7.3 % (13-45); MONOCYTES % (AUTO) 5.6 % (3-13); PLATELET COUNT 133 10^3/uL (150-450); RED BLOOD COUNT 2.73 10^6/uL (3.72-5.28); SEGMENTED NEUTROPHILS % (AUTO) 86.6 % (42-78); TOTAL CELLS COUNTED % (AUTO) 100 %
[2020-05-31] MEDS: LINEZOLID 600 MG/300 ML RTUPB IV SCH ×2 (11:54→22:45)
[2020-05-31] MEDS: THIAMINE HCL 200 MG in NORMAL SALINE 50 ML IV SCH ×2 (11:55→22:07)
[2020-05-31] MEDS: LIDOCAINE 5% (700 MG) TRANSDERMAL ADH..PATCH TP SCH (11:55)
[2020-05-31 12:00] LABS: HEMOGLOBIN 6.8 g/dL (12.0-15.5)
[2020-05-31 12:01] LABS: MEAN CORPUSCULAR VOLUME 78 fl (80-97)
[2020-05-31 12:03] LABS: ABSOLUTE LYMPHOCYTES# (MANUAL) 2.7 10^3/uL (0.5-4.7); ABSOLUTE MONOCYTES # (MANUAL) 0.8 10^3/uL (0.1-1.4); BAND NEUTROPHILS % (MANUAL) 8 % (3-5); BASOPHILS % (MANUAL) 0 % (0-2); EOSINOPHILS % (MANUAL) 0 % (0-6); LYMPHOCYTES % (MANUAL) 13 % (13-45); MONOCYTES % (MANUAL) 4 % (3-13); SEGMENTED NEUTROPHILS % (MAN) 75 % (42-78); TOTAL CELLS COUNTED 100
[2020-05-31 12:04] LABS: ANISOCYTOSIS 3+; NUCLEATED RED BLOOD CELLS 2 /100 WBC (0); PLATELET COMMENT ADEQUATE; POLYCHROMASIA 1+; TARGET CELLS 1+
[2020-05-31] MEDS ORDERED: NORMAL SALINE 250 ML IV PRN ×3 (12:33→20:14)
--- NOTE | 2020-05-31 16:21 | PDOC PROGRESS REPORT ---
Subjective Progress Note for:: 05/31/20 Subjective:: Patient seen today in the ICU. She is very lethargic, just opens her eyes when prompted restimulated but goes right back to sleep. She is unable to verbalize anything at this point. She has made about 815 mL of urine output for the past 24 hours. Currently she remains to be very sick. Blood pressure is holding without any vasopressor at the moment. Reason For Visit: BILIARY OBSTRUCTION S/P SURGERY Physical Exam Vital Signs: Temp Pulse Resp BP Pulse Ox 98.0 F 111 H 15 106/70 97 05/31/20 08:00 05/30/20 23:36 05/31/20 10:20 05/31/20 10:20 05/31/20 10:20 Intake & Output 05/30/20 05/31/20 06/01/20 06:59 06:59 06:59 Intake Total 2702 5344 Output Total 1295 1505 365 Balance 1407 3839 -365 Weight 128.2 kg 132 kg Exam: General appearance: PRESENT: no acute distress, very lethargic Head exam: PRESENT: atraumatic, normocephalic Eye exam: PRESENT: conjunctiva pale, PERRLA. ABSENT: scleral icterus Neck exam: ABSENT: JVD Respiratory exam: PRESENT: Coarse breath sounds. ABSENT: crackles, rales, rhonchi, unlabored, wheezes Cardiovascular exam: PRESENT: Regular rate rhythm -+S1, +S2. ABSENT: diastolic murmur, systolic murmur GI/Abdominal exam: PRESENT: Very quiet bowel sounds, soft. Obese ABSENT: guarding, mass, tenderness Extremities exam: Grade 3 bilateral lower extremity pitting edema up to her hips edema Neurological exam: PRESENT: Lethargic and unable to verbalize anything Skin exam: PRESENT: dry, warm, Cardiovascular exam: PRESENT: +S1, +S2, tachycardia GI/Abdominal exam: PRESENT: diminished bowel sounds, distended, hypoactive bowel sounds, tenderness. ABSENT: soft Results Laboratory Results: 05/31/20 10:13 05/31/20 05:41 05/07/20 05/30/20 05/30/20 04:10 15:32 15:32 WBC RBC Hgb Hct MCV MCH MCHC RDW Plt Count Seg Neutrophils % Carbonic Acid HCO3/H2CO3 Ratio ABG pH ABG pCO2 ABG pO2 ABG HCO3 ABG O2 Saturation ABG Base Excess FiO2 Sodium Potassium Chloride Carbon Dioxide Anion Gap BUN Creatinine Est GFR ( Amer) Glucose Lactic Acid Calcium Phosphorus Magnesium Ferritin 1060.00 H Total Bilirubin 3.8 H AST 702 H Alkaline Phosphatase 76 Ammonia 15.4 C-Reactive Protein 257.0 H Total Protein 4.3 L Albumin 1.6 L Triglycerides Cholesterol LDL Cholesterol Direct VLDL Cholesterol HDL Cholesterol Amylase Blood Type AB POSITIVE Antibody Screen POSITIVE 05/30/20 05/30/20 05/30/20 15:32 15:32 17:38 WBC RBC Hgb Hct MCV MCH MCHC RDW Plt Count Seg Neutrophils % Carbonic Acid 0.89 L HCO3/H2CO3 Ratio 20:1 ABG pH 7.41 ABG pCO2 29.6 L ABG pO2 74.7 L ABG HCO3 18.5 L ABG O2 Saturation 95.4 ABG Base Excess -5.4 FiO2 ROOM AIR Sodium 129.3 L Potassium 4.3 D Chloride 96 L Carbon Dioxide 25 D Anion Gap 8 BUN 26 H Creatinine 2.72 H Est GFR ( Amer) 22 L Glucose 358 H Lactic Acid 4.5 H Calcium 7.0 L* Phosphorus Magnesium Ferritin Total Bilirubin AST Alkaline Phosphatase Ammonia C-Reactive Protein Total Protein Albumin Triglycerides Cholesterol LDL Cholesterol Direct VLDL Cholesterol HDL Cholesterol Amylase Blood Type Antibody Screen 05/31/20 05/31/20 05/31/20 05:41 05:41 05:41 WBC RBC Hgb Hct MCV MCH MCHC RDW Plt Count Seg Neutrophils % Carbonic Acid 0.92 L HCO3/H2CO3 Ratio 22:1 ABG pH 7.44 ABG pCO2 30.5 L ABG pO2 68.5 L ABG HCO3 20.4 ABG O2 Saturation 94.6 ABG Base Excess -3.3 FiO2 ROOM AIR Sodium 128.9 L Potassium 4.0 Chloride 91 L Carbon Dioxide 32 H Anion Gap 6 BUN 27 H Creatinine 2.59 H Est GFR ( Amer) 24 L Glucose 432 H* Lactic Acid Calcium 7.0 L* Phosphorus 4.1 Magnesium 1.5 L Ferritin 709.00 H Total Bilirubin 3.6 H AST 425 H Alkaline Phosphatase 61 Ammonia 14.8 C-Reactive Protein 198.9 H Total Protein 4.4 L Albumin 1.8 L Triglycerides 65 Cholesterol < 50.00 LDL Cholesterol Direct < 30 VLDL Cholesterol 13.0 HDL Cholesterol 6 L Amylase < 30 L Blood Type Antibody Screen 05/31/20 05/31/20 05/31/20 05:41 05:41 10:13 WBC Cancelled 21.0 H RBC Cancelled 2.73 L Hgb Cancelled 6.8 L Hct Cancelled 21.2 L MCV Cancelled 78 L D MCH Cancelled 24.9 L MCHC Cancelled 32.0 RDW Cancelled 24.7 H Plt Count Cancelled 133 L Seg Neutrophils % Cancelled 86.6 H Carbonic Acid HCO3/H2CO3 Ratio ABG pH ABG pCO2 ABG pO2 ABG HCO3 ABG O2 Saturation ABG Base Excess FiO2 Sodium Potassium Chloride Carbon Dioxide Anion Gap BUN Creatinine Est GFR ( Amer) Glucose Lactic Acid 3.2 H Calcium Phosphorus Magnesium Ferritin Total Bilirubin AST Alkaline Phosphatase Ammonia C-Reactive Protein Total Protein Albumin Triglycerides Cholesterol LDL Cholesterol Direct VLDL Cholesterol HDL Cholesterol Amylase Blood Type Antibody Screen 05/14/20 05/15/20 15:18 06:45 Troponin I < 0.012 < 0.012 Impressions: Abdomen Ultrasound 05/07/20 04:47 IMPRESSION: 1. Dilation of the common bile duct again identified measuring 1.2 cm. 2. Hepatic steatosis and hepatomegaly. 3. Prior cholecystectomy. PICC Line Insertion 05/14/20 00:00 IMPRESSION: SUCCESSFUL PLACEMENT OF A 5 FR DUAL LUMEN 42 CM PICC IN THE LEFT BASILIC VEIN. Venous Doppler Study 05/16/20 00:00 IMPRESSION: NO EVIDENCE DVT OR SVT IN EITHER LEG. Abdomen/Pelvis CT 05/23/20 00:00 IMPRESSION: No abscess. Decrease in fluid collection adjacent to the drain in the gallbladder fossa. Hepatobiliary Scan Nuclear Medicine 05/27/20 08:17 IMPRESSION: Prior cholecystectomy. No evidence of bile leak. Vascular Ultrasound 05/28/20 00:00 IMPRESSION: No evidence of portal vein thrombosis. Abdomen CT 05/29/20 00:00 IMPRESSION: 1. Progressive ascites. No focal drainable abscess. Surgical drain remains in place. 2. Worsening lung aeration. WBC Scan Nuclear Medicine 05/30/20 07:00 IMPRESSION: Diffuse uptake in the chest of uncertain etiology, inflammation versus infection. Chest X-Ray 05/31/20 06:00 IMPRESSION: Diffuse bilateral airspace disease slightly more marked centrally. This could represent vascular congestion or multifocal atypical pneumonia. Assessment & Plan - Diagnosis (1) Sepsis with acute organ dysfunction and septic shock Qualifiers: Sepsis type: sepsis due to unspecified organism Severe sepsis acute organ dysfunction type: acute renal failure Acute renal failure type: with acute tubular necrosis Qualified Code(s): A41.9 - Sepsis, unspecified organism; R65.21 - Severe sepsis with septic shock; N17.0 - Acute kidney failure with tubular necrosis Is this a current diagnosis for this admission?: Yes Plan: Patient has been successfully fluid resuscitated yesterday and is currently blood pressure is holding without any vasopressor. Currently on broad-spectrum antibiotics with IV meropenem and linezolid. Wildlife Photographer managing. (2) KEERTHI (acute kidney injury) Is this a current diagnosis for this admission?: Yes Plan: Currently nonoliguric. Most likely secondary to acute tubular necrosis seconda ry to sepsis. Patient's creatinine actually looks better today at 2.59 coming down to a peak of 3.02 two days ago. There is no indication for any acute renal replacement therapy at this time. Continue to monitor kidney function. (3) Acute metabolic encephalopathy Is this a current diagnosis for this admission?: Yes (4) Cholangitis Is this a current diagnosis for this admission?: Yes (5) Edema Qualifiers: Edema type: due to malnutrition Is this a current diagnosis for this admission?: Yes Plan: Patient has significant lower extremity edema consistent with anasarca with severe hypoalbuminemia and likely third spacing. (6) Biliary stricture Is this a current diagnosis for this admission?: Yes Plan: Status post surgery. (7) Hypomagnesemia Is this a current diagnosis for this admission?: Yes Plan: Replace as needed. (8) Hyponatremia Is this a current diagnosis for this admission?: Yes Plan: Most likely secondary to hypervolemic state with severe third spacing due to severe hypoalbuminemia. (9) Lactic acidosis Is this a current diagnosis for this admission?: Yes Plan: Consistent with sepsis. (10) Transaminitis Is this a current diagnosis for this admission?: Yes - Time Time with patient: 15-25 minutes
--- NOTE | 2020-05-31 20:26 | PDOC CRITICAL CARE PROG REPORT ---
General Date:: 05/31/20 ICU Day:: 2 Hospital Day:: 25 Resuscitation Status: Full Code Medical Power of Transcribing Machine Mechanic: DaughterJessica Events in the past 12 to 24 Hours:: 05.31.2020: Patient has had improvement in lactic acid and transaminase elevation. She has less pain but still present in the right upper quadrant. Notably gram-negative's on Gram stain from ROSALVA drain. 05.30.2020: Patient transferred from medical floor secondary to low blood pressure tachycardia and evidence of sepsis. She had profound transaminitis as well and acute encephalopathy. She was seen and admitted by the critical care nurse practitioner who did an outstanding job resuscitation. Patient received 3 L of fluid with improvement in her overall condition and improvement in her mentation. She had significant lactic acidosis which is improved as well. Patient endorses pain in her abdomen. She has not required any vasopressor therapy. Review of systems relevant to events:: 05.31.2020: INR has responded to vitamin K indicative of nutritional depletion of factors. Her hemoglobin hematocrit were lower today there is no active site of bleeding except for some Hemoccult positive stools. She has not been hypotensive. Cardi ac is improved. She endorses that her respiratory is has improved. 05.30.2020: Patient underwent tagged white blood cell scan today which had been ordered prior to her arrival in the ICU. There was distinct significant uptake in the lungs. Notably her chest x-ray shows only minimal effusions and atelectasis. She was started on broad-spectrum antibiotics on arrival in the ICU with me ropenem and linezolid. She does have VRE in her urine. She does not feel nauseous but has abdominal pain. She does feel slightly short of breath. 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 Reason for ICU Addmission:: Sepsis - Medications: Medications reviewed and adjusted accordingly: Yes Vasopressors:: None Sedation:: Dilaudid for pain Physical Exam Vital Signs: Temp Pulse Resp BP Pulse Ox 98.0 F 92 12 103/67 96 05/31/20 08:00 05/31/20 19:00 05/31/20 18:20 05/31/20 18:20 05/31/20 18:20 Intake & Output 05/30/20 05/31/20 06/01/20 06:59 06:59 06:59 Intake Total 2702 5394 1852 Output Total 1295 1505 675 Balance 1407 3889 1177 Weight 128.2 kg 132 kg Weight/Height Weight 132 kg Height 5 ft 8 in General appearance: PRESENT: no acute distress, morbidly obese Exam: Older appearing chronically and critically ill-appearing 49-year-old female,NAD Eye exam: PRESENT: EOMI, PERRLA. ABSENT: conjunctival injection, nystagmus, scleral icterus Mouth exam: PRESENT: dry mucosa Teeth exam: PRESENT: poor dentation Neck exam: ABSENT: carotid bruit, JVD, lymphadenopathy, tenderness, thyromegaly, tracheal deviation Respiratory exam: PRESENT: decreased breath sounds - Noted at bases, unlabored. ABSENT: accessory muscle use, tachypnea Cardiovascular exam: PRESENT: RRR, +S1, +S2, tachycardia Pulses: ABSENT: normal dorsalis pedis pul GI/Abdominal exam: PRESENT: diminished bowel sounds, distended, firm, guarding, tenderness - Slightly improved today, other - Drain noted. No exudative discharge. ABSENT: ascites, rigid Gentrourinary exam: PRESENT: indwelling catheter Extremities exam: PRESENT: +2 edema Musculoskeletal exam: PRESENT: other - Significant anasarca and lower extremities. ABSENT: deformity, dislocation Neurological exam: PRESENT: awake, oriented to person, oriented to place, CN II- XII grossly intact, other - Significant weakness in lower extremities and upper extremities is symmetrical and global. ABSENT: motor sensory deficit Psychiatric exam: PRESENT: flat affect Skin exam: PRESENT: dry, intact, warm. ABSENT: cyanosis, rash Tubes/Lines: PRESENT: Arterial Catheter - Removed today, Other - Damico type urinary catheter Laboratory/Radiographs Laboratory Results: 05/31/20 10:13 05/31/20 05:41 05/30/20 05/31/20 05/31/20 15:32 05:41 05:41 WBC RBC Hgb Hct MCV MCH MCHC RDW Plt Count Seg Neutrophils % Carbonic Acid HCO3/H2CO3 Ratio ABG pH ABG pCO2 ABG pO2 ABG HCO3 ABG O2 Saturation ABG Base Excess FiO2 Sodium 129.3 L 128.9 L Potassium 4.3 D 4.0 Chloride 96 L 91 L Carbon Dioxide 25 D 32 H Anion Gap 8 6 BUN 26 H 27 H Creatinine 2.72 H 2.59 H Est GFR ( Amer) 22 L 24 L Glucose 358 H 432 H* Lactic Acid Calcium 7.0 L* 7.0 L* Phosphorus 4.1 Magnesium 1.5 L Ferritin 709.00 H Total Bilirubin 3.6 H AST 425 H Alkaline Phosphatase 61 Ammonia 14.8 C-Reactive Protein 198.9 H Total Protein 4.4 L Albumin 1.8 L Triglycerides 65 Cholesterol < 50.00 LDL Cholesterol Direct < 30 VLDL Cholesterol 13.0 HDL Cholesterol 6 L Amylase < 30 L Blood Type Antibody Screen 05/31/20 05/31/20 05/31/20 05:41 05:41 05:41 WBC Cancelled RBC Cancelled Hgb Cancelled Hct Cancelled MCV Cancelled MCH Cancelled MCHC Cancelled RDW Cancelled Plt Count Cancelled Seg Neutrophils % Cancelled Carbonic Acid 0.92 L HCO3/H2CO3 Ratio 22:1 ABG pH 7.44 ABG pCO2 30.5 L ABG pO2 68.5 L ABG HCO3 20.4 ABG O2 Saturation 94.6 ABG Base Excess -3.3 FiO2 ROOM AIR Sodium Potassium Chloride Carbon Dioxide Anion Gap BUN Creatinine Est GFR ( Amer) Glucose Lactic Acid 3.2 H Calcium Phosphorus Magnesium Ferritin Total Bilirubin AST Alkaline Phosphatase Ammonia C-Reactive Protein Total Protein Albumin Triglycerides Cholesterol LDL Cholesterol Direct VLDL Cholesterol HDL Cholesterol Amylase Blood Type Antibody Screen 05/31/20 05/31/20 10:13 10:13 WBC 21.0 H RBC 2.73 L Hgb 6.8 L Hct 21.2 L MCV 78 L D MCH 24.9 L MCHC 32.0 RDW 24.7 H Plt Count 133 L Seg Neutrophils % 86.6 H Carbonic Acid HCO3/H2CO3 Ratio ABG pH ABG pCO2 ABG pO2 ABG HCO3 ABG O2 Saturation ABG Base Excess FiO2 Sodium Potassium Chloride Carbon Dioxide Anion Gap BUN Creatinine Est GFR ( Amer) Glucose Lactic Acid Calcium Phosphorus Magnesium Ferritin Total Bilirubin AST Alkaline Phosphatase Ammonia C-Reactive Protein Total Protein Albumin Triglycerides Cholesterol LDL Cholesterol Direct VLDL Cholesterol HDL Cholesterol Amylase Blood Type AB POSITIVE Antibody Screen NEGATIVE 05/14/20 05/15/20 15:18 06:45 Troponin I < 0.012 < 0.012 Impressions: Abdomen Ultrasound 05/07/20 04:47 IMPRESSION: 1. Dilation of the common bile duct again identified measuring 1.2 cm. 2. Hepatic steatosis and hepatomegaly. 3. Prior cholecystectomy. PICC Line Insertion 05/14/20 00:00 IMPRESSION: SUCCESSFUL PLACEMENT OF A 5 FR DUAL LUMEN 42 CM PICC IN THE LEFT BASILIC VEIN. Venous Doppler Study 05/16/20 00:00 IMPRESSION: NO EVIDENCE DVT OR SVT IN EITHER LEG. Abdomen/Pelvis CT 05/23/20 00:00 IMPRESSION: No abscess. Decrease in fluid collection adjacent to the drain in the gallbladder fossa. Hepatobiliary Scan Nuclear Medicine 05/27/20 08:17 IMPRESSION: Prior cholecystectomy. No evidence of bile leak. Vascular Ultrasound 05/28/20 00:00 IMPRESSION: No evidence of portal vein thrombosis. Abdomen CT 05/29/20 00:00 IMPRESSION: 1. Progressive ascites. No focal drainable abscess. Surgical drain remains in place. 2. Worsening lung aeration. WBC Scan Nuclear Medicine 05/30/20 07:00 IMPRESSION: Diffuse uptake in the chest of uncertain etiology, inflammation versus infection. Chest X-Ray 05/31/20 06:00 IMPRESSION: Diffuse bilateral airspace disease slightly more marked centrally. This could represent vascular congestion or multifocal atypical pneumonia. All labs, radiographs, diagnostic studies and EKGs were personally reviewed: Yes In addition, reports of radiographic and diagnostic studies were read: Yes Assessment and Plan - Diagnosis (1) Sepsis with acute organ dysfunction and septic shock Qualifiers: Sepsis type: sepsis due to unspecified organism Severe sepsis acute organ dysfunction type: acute renal failure Acute renal failure type: with acute tubular necrosis Qualified Code(s): A41.9 - Sepsis, unspecified organism; R65.21 - Severe sepsis with septic shock; N17.0 - Acute kidney failure with tubular necrosis Is this a current diagnosis for this admission?: Yes (2) Acute metabolic encephalopathy Is this a current diagnosis for this admission?: Yes (3) Lactic acidosis Is this a current diagnosis for this admission?: Yes (4) Transaminitis Is this a current diagnosis for this admission?: Yes (5) Cholangitis Is this a current diagnosis for this admission?: Yes (6) Hepatitis Is this a current diagnosis for this admission?: Yes Plan Summary: 05.31.2020: Patient has shown subtle provement in overall condition. Transaminase elevation has improved as well as her creatinine. She still has significant right upper quadrant pain concerned that she might still have bacterial peritonitis. ROSALVA drain has gram-negative organisms. At this point we may need to consider removal of the ROSALVA drain as a possible source. Continue broad-spectrum antibiotics including meropenem. Micafungin discontinued secondary to transaminase elevation. Patient is at high risk for decompensation and still requires critical care. Will need to be vigilant that the remanent gastric segments from her previous Mackenzie-en-Y part of this process. I am somewhat encouraged that her overall numbers condition have improved however do not feel she is out of danger. Continue current level of care. Met with daughter Jessica and son Gerhard. Discussed case, care and condition. 05.30.2020: Respiratory: Patient has a mild respiratory distress secondary to atelectasis and abdominal pain. Will attempt to control this with Dilaudid. ABG pending to determine pH and O2 status. Given her size and obesity and abdominal pain she is at risk for hypercarbic respiratory failure. Her tagged white blood cell scan had significant uptake in the lungs this may be reflective of pleural fluid which is infected and or occult pneumonia. CT scan of the lung showed mild consolidation and mild effusion. Continue on broad-spectrum antibiotics Infectious: Patient appears to have sepsis with shock. She did not have significant hypotension but did have low normal blood pressure before coming to the ICU. She has responded to volume and her lactic acidosis has improved. Is difficult to know where this infection might be coming from however the most suspected site is the liver bed. That being said there was not significant uptake of white blood cells in that area. She has had a ROSALVA drain in since surgery and the output from this has intermittently been bilious although this is not happened in the ICU. We will send cultures. Awaiting blood cultures. Urine has been unremarkable. Cardiac: Patient had tachycardia and lactic acidosis which is improved. Con tinue to monitor accordingly. She is at risk for decompensation Hematologic/Oncologic: Significant leukocytosis from infection. Continue to monitor and watch for bleeding. She has an acquired coagulopathy for which we will give vitamin K to determine if there is any improvement. Endocrine: No active issues however will need to be concerned about hypoglycemia if she has fulminant hepatic failure. Renal: Patient has acute renal failure. This is a combination of acute tubular necrosis and dehydration. Will not diurese at this point and will give high concentration albumin. She does have peripheral anasarca but this is related to her illness and sepsis and not secondary to volume overload. Metabolic: Patient has mild hyperkalemia. We will continue to monitor. She does not need dialysis and will continue to monitor. Alimentary: By far the most serious concern is the transaminitis. She has improved on repeat labs. I have discontinued the micafungin on and off chance that is causing the transaminitis synergistically with an underlying process. Her HIDA scan was negative for any bile leak. She does have partially congealed substances in the ROSALVA tube and I have cultured this. And concern that there may be an infection in the liver bed. We will continue antibiotics and provide IV fluids and monitor her course accordingly. Neurologic: Patient has acute metabolic encephalopathy related to her illness. She is more awake this afternoon and was noted to be more awake this morning with volume given overnight. We will continue to monitor and reevaluate ammonia level. Sedation/analgesia: We will provide analgesia in the form of Dilaudid as needed for abdominal pain. Lines/Tubes: Patient has a PICC line and a left radial arterial line. Other/family: Met with carrington Lopez and discussed case care and condition.. Critical Time Critical Time (minutes): 40 Level of Care: ICU Anticipated discharge: Acute Rehab Anticipated DC Timeframe: Other - Undetermined timeframe given current clinical condition -: 1. The care of a critical patient is a dynamic process. This note is a sales service representative synopsis but static in nature. The timeframe for treatments given in order is not necessarily the actual time these treatments may have been done. 2. This patient requires critical care secondary to ongoing requirements for therapy not offered or safe outside the critical care environment. Transfer to a lower level of care will result in altered life or limb morbidity and mortality. 3. Multidisciplinary rounds completed. 4. ABCDE bundle addressed.
[2020-06-01] MEDS: HYDROMORPHONE HCL INJ/PF 2 MG/ML AMPULE IV PRN ×5 (00:30→23:30)
[2020-06-01] MEDS: HYDROCORTISONE SOD SUCCINATE INJ/PF 100 MG/2 ML SDV IV SCH ×5 (00:32→23:29)
[2020-06-01] MEDS: NORMAL SALINE 10 ML SDV (AFTER EACH USE) IV PRN ×2 (00:34→06:05)
[2020-06-01 00:54] LABS: HEMATOCRIT 28.6 % (36.0-47.0); MEAN CORPUSCULAR HGB CONC 32.6 g/dL (32.0-36.0); MEAN CORPUSCULAR VOLUME 80 fl (80-97); RED BLOOD COUNT 3.59 10^6/uL (3.72-5.28); RED CELL DISTRIBUTION WIDTH 21.8 % (11.5-14.0); WHITE BLOOD COUNT 23.4 10^3/uL (4.0-10.5)
[2020-06-01 00:57] LABS: HEMOGLOBIN 9.3 g/dL (12.0-15.5); PLATELET COUNT 94 10^3/uL (150-450)
[2020-06-01 01:15] LABS: ABSOLUTE LYMPHOCYTES# (MANUAL) 0.7 10^3/uL (0.5-4.7); ABSOLUTE MONOCYTES # (MANUAL) 0.5 10^3/uL (0.1-1.4); BAND NEUTROPHILS % (MANUAL) 2 % (3-5); BASOPHILS % (MANUAL) 0 % (0-2); EOSINOPHILS % (MANUAL) 0 % (0-6); LYMPHOCYTES % (MANUAL) 3 % (13-45); MONOCYTES % (MANUAL) 2 % (3-13); SEGMENTED NEUTROPHILS % (MAN) 93 % (42-78); TOTAL CELLS COUNTED 100
[2020-06-01 01:18] LABS: ANISOCYTOSIS 3+; PLATELET COMMENT DECREASED; TOXIC VACUOLATION PRESENT
[2020-06-01] MEDS: MEROPENEM 1 GM in NORMAL SALINE 50 ML IV SCH ×2 (01:31→16:29)
[2020-06-01] MEDS: DEXTROSE 5% IV SCH ×4 (02:32→21:09)
[2020-06-01] MEDS: WATER IV SCH ×4 (02:32→21:09)
[2020-06-01] MEDS: ASCORBIC ACID IV SCH ×4 (02:32→21:09)
[2020-06-01 05:38] LABS: HEPATITS B SURFACE ANTIGEN Negative (Negative)
[2020-06-01] MEDS: ALBUMIN HUMAN 12.5 GM/50 ML RTUINJ IV SCH ×2 (06:32→08:28)
[2020-06-01 06:40] LABS: C-REACTIVE PROTEIN 175.1 mg/L (<10.0)
--- NOTE | 2020-06-01 08:25 | PDOC PROGRESS REPORT ---
Subjective Progress Note for:: 06/01/20 Subjective:: looks worse Reason For Visit: BILIARY OBSTRUCTION S/P SURGERY Physical Exam Vital Signs: Temp Pulse Resp BP Pulse Ox 98.6 F 91 13 119/81 96 06/01/20 06:00 06/01/20 06:00 06/01/20 06:21 06/01/20 06:21 06/01/20 06:21 Intake & Output 05/31/20 06/01/20 06/02/20 06:59 06:59 06:59 Intake Total 5394 2800 Output Total 1505 1090 Balance 3889 1710 Weight 132 kg 134.4 kg General appearance: PRESENT: no acute distress Head exam: PRESENT: normocephalic Eye exam: PRESENT: PERRLA Mouth exam: PRESENT: dry mucosa Teeth exam: PRESENT: edentulous Neck exam: PRESENT: full ROM Respiratory exam: PRESENT: clear to auscultation winter Cardiovascular exam: PRESENT: RRR Pulses: PRESENT: normal femoral pulses, normal dorsalis pedis pul Vascular exam: PRESENT: normal capillary refill Breast: PRESENT: Normal GI/Abdominal exam: PRESENT: soft, other - midline wound clean, dry deisy bilous. Rectal exam: PRESENT: deferred Gentrourinary exam: PRESENT: indwelling catheter Extremities exam: PRESENT: full ROM Musculoskeletal exam: PRESENT: full ROM Neurological exam: PRESENT: awake Psychiatric exam: PRESENT: depressed Skin exam: PRESENT: dry Results Laboratory Results: 06/01/20 00:35 05/31/20 05:41 05/31/20 05/31/20 06/01/20 10:13 10:13 00:35 WBC 21.0 H 23.4 H RBC 2.73 L 3.59 L Hgb 6.8 L 9.3 L D Hct 21.2 L 28.6 L MCV 78 L D 80 MCH 24.9 L 26.0 L MCHC 32.0 32.6 RDW 24.7 H 21.8 H Plt Count 133 L 94 L Seg Neutrophils % 86.6 H Not Reportable Ferritin C-Reactive Protein Blood Type AB POSITIVE Antibody Screen NEGATIVE 06/01/20 05:34 WBC RBC Hgb Hct MCV MCH MCHC RDW Plt Count Seg Neutrophils % Ferritin 748.00 H C-Reactive Protein 175.1 H Blood Type Antibody Screen 05/14/20 05/15/20 15:18 06:45 Troponin I < 0.012 < 0.012 Impressions: Abdomen Ultrasound 05/07/20 04:47 IMPRESSION: 1. Dilation of the common bile duct again identified measuring 1.2 cm. 2. Hepatic steatosis and hepatomegaly. 3. Prior cholecystectomy. PICC Line Insertion 05/14/20 00:00 IMPRESSION: SUCCESSFUL PLACEMENT OF A 5 FR DUAL LUMEN 42 CM PICC IN THE LEFT BASILIC VEIN. Venous Doppler Study 05/16/20 00:00 IMPRESSION: NO EVIDENCE DVT OR SVT IN EITHER LEG. Abdomen/Pelvis CT 05/23/20 00:00 IMPRESSION: No abscess. Decrease in fluid collection adjacent to the drain in the gallbladder fossa. Hepatobiliary Scan Nuclear Medicine 05/27/20 08:17 IMPRESSION: Prior cholecystectomy. No evidence of bile leak. Vascular Ultrasound 05/28/20 00:00 IMPRESSION: No evidence of portal vein thrombosis. Abdomen CT 05/29/20 00:00 IMPRESSION: 1. Progressive ascites. No focal drainable abscess. Surgical drain remains in place. 2. Worsening lung aeration. WBC Scan Nuclear Medicine 05/30/20 07:00 IMPRESSION: Diffuse uptake in the chest of uncertain etiology, inflammation versus infection. Chest X-Ray 05/31/20 06:00 IMPRESSION: Diffuse bilateral airspace disease slightly more marked centrally. This could represent vascular congestion or multifocal atypical pneumonia. Assessment & Plan - Diagnosis (1) Anemia Qualifiers: Anemia type: iron deficiency Iron deficiency anemia type: unspecified iron deficiency Qualified Code(s): D50.9 - Iron deficiency anemia, unspecified Is this a current diagnosis for this admission?: Yes - Time Time Spent: 50 to 70 Minutes Critical Time spent with patient: 15-24 minutes Medications reviewed and adjusted accordingly: No Anticipated Discharge Disposition[facility] Anticipated Discharge Timeframe: weeks - Plan Summary Plan Summary: wbc trending down, however pt appears to be deterioriating weaker difficulty to communicate with not taking po despite 3 [address]'s no real identifible source for sepsis lft;s improved Plan- disucssed with Dr Julio will start tpn anti fungals cont icu support no indication for repeat ct
[2020-06-01] MEDS ORDERED: FLUCONAZOLE 400 MG/NS RTU 400 MG/200 ML RTUPB IV ONE (09:00)
--- NOTE | 2020-06-01 09:06 | PDOC CRITICAL CARE PROG REPORT ---
General Date:: 06/01/20 Resuscitation Status: Full Code Medical Power of Roller Man: Daughter, Jessica Events in the past 12 to 24 Hours:: WBC trending down. Still somewhat encephalopathic. Review of systems relevant to events:: GI, neurlogical. Reason for ICU Addmission:: Sepsis - Medications: Medications reviewed and adjusted accordingly: Yes Vasopressors:: None Sedation:: None. Physical Exam Vital Signs: Temp Pulse Resp BP Pulse Ox 98.5 F 103 H 14 115/82 96 06/01/20 08:00 06/01/20 08:00 06/01/20 08:00 06/01/20 08:00 06/01/20 08:00 Intake & Output 05/31/20 06/01/20 06/02/20 06:59 06:59 06:59 Intake Total 5394 2800 50 Output Total 1505 1090 20 Balance 3889 1710 30 Weight 132 kg 134.4 kg Weight/Height Weight 134.4 kg Height 5 ft 8 in General appearance: PRESENT: no acute distress, obese Head exam: PRESENT: atraumatic, normocephalic Eye exam: PRESENT: conjunctiva pink, EOMI, PERRLA. ABSENT: scleral icterus Ear exam: PRESENT: normal external ear exam Mouth exam: PRESENT: moist, tongue midline Respiratory exam: PRESENT: accessory muscle use, decreased breath sounds Cardiovascular exam: PRESENT: RRR, tachycardia. ABSENT: diastolic murmur, rubs, systolic murmur GI/Abdominal exam: PRESENT: normal bowel sounds, soft, tenderness, other - Some RUQ pain.. ABSENT: distended, guarding, mass, organolmegaly, rebound Rectal exam: PRESENT: deferred Gentrourinary exam: PRESENT: indwelling catheter Extremities exam: PRESENT: +2 edema Musculoskeletal exam: PRESENT: normal inspection Neurological exam: PRESENT: alert, altered, awake Skin exam: PRESENT: dry, intact, warm. ABSENT: cyanosis, rash Tubes/Lines: PRESENT: Central Line Laboratory/Radiographs Laboratory Results: 06/01/20 00:35 05/31/20 05:41 05/31/20 05/31/20 06/01/20 10:13 10:13 00:35 WBC 21.0 H 23.4 H RBC 2.73 L 3.59 L Hgb 6.8 L 9.3 L D Hct 21.2 L 28.6 L MCV 78 L D 80 MCH 24.9 L 26.0 L MCHC 32.0 32.6 RDW 24.7 H 21.8 H Plt Count 133 L 94 L Seg Neutrophils % 86.6 H Not Reportable Ferritin C-Reactive Protein Blood Type AB POSITIVE Antibody Screen NEGATIVE 06/01/20 05:34 WBC RBC Hgb Hct MCV MCH MCHC RDW Plt Count Seg Neutrophils % Ferritin 748.00 H C-Reactive Protein 175.1 H Blood Type Antibody Screen 05/14/20 05/15/20 15:18 06:45 Troponin I < 0.012 < 0.012 Impressions: Abdomen Ultrasound 05/07/20 04:47 IMPRESSION: 1. Dilation of the common bile duct again identified measuring 1.2 cm. 2. Hepatic steatosis and hepatomegaly. 3. Prior cholecystectomy. PICC Line Insertion 05/14/20 00:00 IMPRESSION: SUCCESSFUL PLACEMENT OF A 5 FR DUAL LUMEN 42 CM PICC IN THE LEFT BASILIC VEIN. Venous Doppler Study 05/16/20 00:00 IMPRESSION: NO EVIDENCE DVT OR SVT IN EITHER LEG. Abdomen/Pelvis CT 05/23/20 00:00 IMPRESSION: No abscess. Decrease in fluid collection adjacent to the drain in the gallbladder fossa. Hepatobiliary Scan Nuclear Medicine 05/27/20 08:17 IMPRESSION: Prior cholecystectomy. No evidence of bile leak. Vascular Ultrasound 05/28/20 00:00 IMPRESSION: No evidence of portal vein thrombosis. Abdomen CT 05/29/20 00:00 IMPRESSION: 1. Progressive ascites. No focal drainable abscess. Surgical drain remains in place. 2. Worsening lung aeration. WBC Scan Nuclear Medicine 05/30/20 07:00 IMPRESSION: Diffuse uptake in the chest of uncertain etiology, inflammation versus infection. Chest X-Ray 05/31/20 06:00 IMPRESSION: Diffuse bilateral airspace disease slightly more marked centrally. This could represent vascular congestion or multifocal atypical pneumonia. All labs, radiographs, diagnostic studies and EKGs were personally reviewed: Yes In addition, reports of radiographic and diagnostic studies were read: Yes Assessment and Plan - Diagnosis (1) Hypoalbuminemia Is this a current diagnosis for this admission?: Yes Plan: Her albumin is 1.8. This is an independent risk factor for mortality. She is at risk for infection and not healing. Both of these factors are at play here. Her surgery was uneventful but she may not be able to heal well. (2) Malnutrition compromising bodily function Is this a current diagnosis for this admission?: Yes Plan: She cannot take much by mouth. TPN to start (3) Abnormal liver function test Is this a current diagnosis for this admission?: Yes Plan: Trending better. (4) Acute metabolic encephalopathy Is this a current diagnosis for this admission?: Yes Plan: She is more alert but seems to have an element of hypoactive delirium. Reorient and mintain comfort and sllep/wake cycles. (5) Anemia Qualifiers: Anemia type: iron deficiency Iron deficiency anemia type: unspecified iron deficiency Qualified Code(s): D50.9 - Iron deficiency anemia, unspecified Is this a current diagnosis for this admission?: Yes Plan: Multifactorial, nutrition, inflammation among others. Resolved for now with transfusion. (6) Biliary stricture Is this a current diagnosis for this admission?: Yes Plan: Resolved with surgery. (7) Cirrhosis of liver Qualifiers: Hepatic cirrhosis type: unspecified biliary cirrhosis Qualified Code(s): K74.5 - Biliary cirrhosis, unspecified Is this a current diagnosis for this admission?: Yes Plan: Pathology pending. (8) Sepsis with acute organ dysfunction and septic shock Qualifiers: Sepsis type: sepsis due to unspecified organism Severe sepsis acute organ dysfunction type: acute renal failure Acute renal failure type: with acute tubular necrosis Qualified Code(s): A41.9 - Sepsis, unspecified organism; R65.21 - Severe sepsis with septic shock; N17.0 - Acute kidney failure with tubular necrosis Is this a current diagnosis for this admission?: Yes Plan: Resolving (9) Lactic acidosis Is this a current diagnosis for this admission?: Yes Plan: Steadily improving. Plan Summary: Start diflucan and TPN. Keep in ICU to ascertain improvment. Critical Time Critical Time (minutes): 35 Level of Care: ICU Anticipated discharge: SNF Anticipated DC Timeframe: Other -: 1. The care of a critical patient is a dynamic process. This note is a [employer] school admissions representative synopsis but static in nature. The timeframe for treatments given in order is not necessarily the actual time these treatments may have been done. 2. This patient requires critical care secondary to ongoing requirements for therapy not offered or safe outside the critical care environment. Transfer to a lower level of care will result in altered life or limb morbidity and mortality. 3. Multidisciplinary rounds completed. 4. ABCDE bundle addressed.
[2020-06-01] MEDS ORDERED: DEXTROSE 40% GEL 15 GM TUBE X 2 PO PRN (09:30)
[2020-06-01] MEDS ORDERED: DEXTROSE 40% GEL 15 GM TUBE PO PRN (09:30)
[2020-06-01] MEDS ORDERED: GLUCAGON,HUMAN RECOMB 1 MG INJ IM PRN (09:30)
[2020-06-01] MEDS ORDERED: DEXTROSE 50%-WATER SYRINGE 25 GM/50 ML DOSE IV PRN (09:30)
[2020-06-01] MEDS ORDERED: DEXTROSE 50%-WATER SYRINGE 12.5 GM/25 ML DOSE IV PRN (09:30)
[2020-06-01] MEDS ORDERED: DEXTROSE 10%-WATER 1,000 ML IV PRN (09:30)
[2020-06-01 09:40] LABS: ALBUMIN 2.1 g/dL (3.5-5.0); ALKALINE PHOSPHATASE 93 U/L (38-126); ANION GAP 7 (5-19); ASPARTATE AMINO TRANSFERASE 263 U/L (14-36); BILIRUBIN,DIRECT 4.9 mg/dL (0.0-0.4); BLOOD UREA NITROGEN 34 mg/dL (7-20); CALCIUM 8.3 mg/dL (8.4-10.2); CARBON DIOXIDE 25 mmol/L (22-30); CHLORIDE 99 mmol/L (98-107); GLUCOSE 92 mg/dL (75-110); PHOSPHORUS 4.6 mg/dL (2.5-4.5); POTASSIUM 4.5 mmol/L (3.6-5.0); TOTAL PROTEIN 5.4 g/dL (6.3-8.2)
[2020-06-01 09:50] LABS: BILIRUBIN,TOTAL 6.8 mg/dL (0.2-1.3)
[2020-06-01] MEDS: FAMOTIDINE INJ/PF 20 MG/2 ML SDV IV SCH (09:54)
[2020-06-01] MEDS: LIDOCAINE 5% (700 MG) TRANSDERMAL ADH..PATCH TP SCH (09:54)
[2020-06-01] MEDS: NORMAL SALINE 10 ML SDV (SCHEDULED) IV SCH ×2 (09:54→21:17)
[2020-06-01] MEDS: FOLIC ACID 1 MG TABLET PO SCH (09:55)
[2020-06-01] MEDS: CHOLECALCIFEROL (D3) 1,000 UNIT (25 MCG) TABLET PO SCH (09:55)
[2020-06-01] MEDS: ZINC SULFATE 220 MG CAPSULE PO SCH (09:55)
[2020-06-01] MEDS: LINEZOLID 600 MG/300 ML RTUPB IV SCH ×2 (10:00→22:13)
[2020-06-01] MEDS: THIAMINE HCL 200 MG in NORMAL SALINE 50 ML IV SCH ×2 (10:10→21:12)
[2020-06-01 10:37] LABS: HEPATITIS C VIRUS ANTIBODY <0.1 s/co ratio (0.0-0.9)
[2020-06-01] MEDS: RINGERS SOLUTION,LACTATED 1,000 ML IV PRN ×2 (10:41→17:07)
[2020-06-01 10:58] LABS: INTERNATIONAL RATION (INR) 1.34; PROTHROMBIN TIME 16.7 SEC (11.4-15.4)
[2020-06-01 11:33] LABS: PREALBUMIN 4.2 mg/dL (17.6-36.0)
[2020-06-01] MEDS: INSULIN REG, HUMAN 100 UNIT/ML 3 ML VIAL (PYX) SUBCUT SCH ×3 (12:51→23:29)
[2020-06-01] MEDS: AMINO ACIDS 5 %/DEXTROSE 20 % 1,000 ML IV PRN (16:30)
[2020-06-02] MEDS: RINGERS SOLUTION,LACTATED 1,000 ML IV PRN ×3 (01:20→18:13)
[2020-06-02] MEDS: MEROPENEM 1 GM in NORMAL SALINE 50 ML IV SCH ×2 (01:20→15:30)
[2020-06-02] MEDS: WATER IV SCH ×4 (03:07→21:42)
[2020-06-02] MEDS: ASCORBIC ACID IV SCH ×4 (03:07→21:42)
[2020-06-02] MEDS: DEXTROSE 5% IV SCH ×4 (03:07→21:42)
[2020-06-02] MEDS: HYDROMORPHONE HCL INJ/PF 2 MG/ML AMPULE IV PRN ×3 (03:45→13:19)
[2020-06-02 05:11] LABS: ALKALINE PHOSPHATASE 89 U/L (38-126); ANION GAP 8 (5-19); ASPARTATE AMINO TRANSFERASE 152 U/L (14-36); BILIRUBIN,TOTAL 5.5 mg/dL (0.2-1.3); BLOOD UREA NITROGEN 35 mg/dL (7-20); C-REACTIVE PROTEIN 77.6 mg/L (<10.0); CALCIUM 8.4 mg/dL (8.4-10.2); CARBON DIOXIDE 24 mmol/L (22-30); CHLORIDE 100 mmol/L (98-107); GLUCOSE 131 mg/dL (75-110); PHOSPHORUS 4.5 mg/dL (2.5-4.5); POTASSIUM 4.3 mmol/L (3.6-5.0); TOTAL PROTEIN 5.3 g/dL (6.3-8.2)
[2020-06-02 05:15] LABS: PREALBUMIN 5.4 mg/dL (17.6-36.0)
[2020-06-02] MEDS: HYDROCORTISONE SOD SUCCINATE INJ/PF 100 MG/2 ML SDV IV SCH ×3 (05:30→19:52)
[2020-06-02] MEDS: INSULIN REG, HUMAN 100 UNIT/ML 3 ML VIAL (PYX) SUBCUT SCH ×3 (05:30→18:12)
[2020-06-02] MEDS: FOLIC ACID 1 MG TABLET PO SCH (09:57)
[2020-06-02] MEDS: NORMAL SALINE 10 ML SDV (SCHEDULED) IV SCH ×2 (09:57→21:43)
[2020-06-02] MEDS: ZINC SULFATE 220 MG CAPSULE PO SCH (09:58)
[2020-06-02] MEDS: CHOLECALCIFEROL (D3) 1,000 UNIT (25 MCG) TABLET PO SCH (09:58)
[2020-06-02] MEDS: THIAMINE HCL 200 MG in NORMAL SALINE 50 ML IV SCH ×2 (10:11→21:42)
[2020-06-02] MEDS: LINEZOLID 600 MG/300 ML RTUPB IV SCH ×2 (10:11→21:42)
[2020-06-02 10:13] LABS: HEMOGLOBIN 8.9 g/dL (12.0-15.5); MEAN CORPUSCULAR HEMOGLOBIN 25.9 pg (27.0-33.4); MEAN CORPUSCULAR HGB CONC 31.8 g/dL (32.0-36.0); MEAN CORPUSCULAR VOLUME 82 fl (80-97); RED BLOOD COUNT 3.44 10^6/uL (3.72-5.28); RED CELL DISTRIBUTION WIDTH 22.2 % (11.5-14.0); WHITE BLOOD COUNT 24.4 10^3/uL (4.0-10.5)
[2020-06-02] MEDS: LIDOCAINE 5% (700 MG) TRANSDERMAL ADH..PATCH TP SCH (10:14)
[2020-06-02 10:35] LABS: PLATELET COUNT 52 10^3/uL (150-450)
[2020-06-02 10:39] LABS: ABSOLUTE LYMPHOCYTES# (MANUAL) 1.7 10^3/uL (0.5-4.7); ABSOLUTE MONOCYTES # (MANUAL) 1.5 10^3/uL (0.1-1.4); BASOPHILS % (MANUAL) 0 % (0-2); EOSINOPHILS % (MANUAL) 0 % (0-6); LYMPHOCYTES % (MANUAL) 7 % (13-45); MONOCYTES % (MANUAL) 6 % (3-13); SEGMENTED NEUTROPHILS % (MAN) 87 % (42-78); TOTAL CELLS COUNTED 100
[2020-06-02 10:42] LABS: ANISOCYTOSIS 3+; HYPOCHROMASIA SLIGHT; PLATELET COMMENT DECREASED; POLYCHROMASIA 1+; TARGET CELLS SLIGHT
[2020-06-02] MEDS ORDERED: LIDOCAINE 1% INJ-PF (10 MG/ML) 30 ML SDV ONE (12:59)
--- NOTE | 2020-06-02 13:39 | PDOC PROGRESS REPORT ---
Subjective Progress Note for:: 06/02/20 Subjective:: Very weak. Opens eyes and obeys command but does not speak. Reason For Visit: BILIARY OBSTRUCTION S/P SURGERY Physical Exam Vital Signs: Temp Pulse Resp BP Pulse Ox 98.2 F 79 9 L 96/69 L 100 06/02/20 05:38 06/02/20 07:00 06/02/20 10:00 06/02/20 09:56 06/02/20 10:00 Intake & Output 06/01/20 06/02/20 06/03/20 06:59 06:59 06:59 Intake Total 2800 3069 1352 Output Total 1090 1705 405 Balance 1710 1364 947 Weight 134.4 kg 135.1 kg Respiratory exam: PRESENT: decreased breath sounds Cardiovascular exam: PRESENT: RRR GI/Abdominal exam: PRESENT: other - Soft, protuberant, right-sided drain in place with bilious output. Tenderness in the right upper and right mid abdomen. No suture holding drain in place therefore after prepping with alcohol and injection of local anesthetic, Prolene suture placed through the skin and tying the drain in place externally. Results Laboratory Results: 06/02/20 09:55 06/02/20 04:40 06/02/20 06/02/20 04:40 09:55 WBC 24.4 H RBC 3.44 L Hgb 8.9 L Hct 28.0 L MCV 82 MCH 25.9 L MCHC 31.8 L RDW 22.2 H Plt Count 52 L Seg Neutrophils % Not Reportable Sodium 131.9 L Potassium 4.3 Chloride 100 Carbon Dioxide 24 Anion Gap 8 BUN 35 H Creatinine 2.20 H Est GFR ( Amer) 28 L Glucose 131 H Calcium 8.4 Phosphorus 4.5 Ferritin 606.00 H Total Bilirubin 5.5 H AST 152 H Alkaline Phosphatase 89 C-Reactive Protein 77.6 H Total Protein 5.3 L Albumin 2.0 L Prealbumin 5.4 L 05/31/20 12:15 Abdominal Fluid Gram Stain - Final 05/31/20 12:15 Abdominal Fluid Body Fluid Culture - Final Escherichia Coli Yeast, Not Ashlie Albicans No Anaerobic Organisms 05/30/20 15:30 [place] Drainage (Aden Andrade) Gram Stain - Final 05/30/20 15:30 [place] Drainage (Aden Andrade) Body Fluid Culture - Final Escherichia Coli Yeast, Not Ashlie Albicans No Anaerobic Organisms 05/14/20 05/15/20 15:18 06:45 Troponin I < 0.012 < 0.012 Impressions: Abdomen Ultrasound 05/07/20 04:47 IMPRESSION: 1. Dilation of the common bile duct again identified measuring 1.2 cm. 2. Hepatic steatosis and hepatomegaly. 3. Prior cholecystectomy. PICC Line Insertion 05/14/20 00:00 IMPRESSION: SUCCESSFUL PLACEMENT OF A 5 FR DUAL LUMEN 42 CM PICC IN THE LEFT BASILIC VEIN. Venous Doppler Study 05/16/20 00:00 IMPRESSION: NO EVIDENCE DVT OR SVT IN EITHER LEG. Abdomen/Pelvis CT 05/23/20 00:00 IMPRESSION: No abscess. Decrease in fluid collection adjacent to the drain in the gallbladder fossa. Hepatobiliary Scan Nuclear Medicine 05/27/20 08:17 IMPRESSION: Prior cholecystectomy. No evidence of bile leak. Vascular Ultrasound 05/28/20 00:00 IMPRESSION: No evidence of portal vein thrombosis. Abdomen CT 05/29/20 00:00 IMPRESSION: 1. Progressive ascites. No focal drainable abscess. Surgical drain remains in place. 2. Worsening lung aeration. WBC Scan Nuclear Medicine 05/30/20 07:00 IMPRESSION: Diffuse uptake in the chest of uncertain etiology, inflammation versus infection. Chest X-Ray 05/31/20 06:00 IMPRESSION: Diffuse bilateral airspace disease slightly more marked centrally. This could represent vascular congestion or multifocal atypical pneumonia. Assessment & Plan - Diagnosis (1) Biliary anastomotic leak Is this a current diagnosis for this admission?: Yes Plan: Biliary leak status post choledochoduodenostomy. Patient's worsening mental status and persistent leukocytosis concerning. However she is not tachycardic and she has adequate urine output with gradually improving renal function. Will obtain another CT without IV contrast. Continue broad-spectrum antibiotics. TPN started. - Time Anticipated Discharge Disposition: Intermediate Care Facility Anticipated Discharge Timeframe: weeks
--- NOTE | 2020-06-02 14:30 | RADIOLOGY REPORT (SQ) ---
EXAM DESCRIPTION: CT ABD/PELVIS NO ORAL OR IV IMAGES COMPLETED DATE/TIME: 06/02/2020 1:58 pm REASON FOR STUDY: bile leak s/p choledochoduodenostomy COMPARISON: CT abdomen and pelvis 05/29/2020 TECHNIQUE: CT scan of the abdomen and pelvis performed without intravenous or oral contrast. Images reviewed with lung, soft tissue, and bone windows. Reconstructed coronal and sagittal MPR images revi ewed. All images stored on PACS. All CT scanners at this facility use dose modulation, iterative reconstruction, and/or weight based d osing when appropriate to reduce radiation dose to as low as reasonably achievable (ALARA). [facility]: Dose Right [facility]: CareDose [facility]: Dose Right [facility]: Teradose 4D [facility]: [employer] RADIATION DOSE: CT Rad equipment meets quality standard of care and radiation dose reduction techniq ues were employed. CTDIvol: 19.2 mGy. DLP: 1138 mGy-cm.mGy. LIMITATIONS: None. FINDINGS: LOWER CHEST: Similar small right pleural effusion with adjacent consolidation. Tiny left pleural effusion. Patchy airspace process in the lung bases bilaterally. NON-CONTRASTED LIVER, SPLEEN, ADRENALS: Pneumobilia. No significant interval change. PANCREAS: No peripancreatic inflammatory changes. GALLBLADDER: Surgically absent. Subhepatic drain remains in place. No definite residual fluid in th e gallbladder fossa. RIGHT KIDNEY AND URETER: Unchanged. LEFT KIDNEY AND URETER: Unchanged. AORTA AND RETROPERITONEUM: No aneurysm. No retroperitoneal masses or adenopathy. BOWEL AND PERITONEAL CAVITY: Postsurgical changes at the gastroesophageal junction, unchanged. No ov ert mechanical bowel obstruction. Mildly increased ascites. No definite loculated collections. APPENDIX: Not visualized. PELVIS, BLADDER, AND ABDOMINAL WALL:The urinary bladder is decompressed with a Damico catheter in plac e. There is severe diffuse abdominal wall anasarca. BONES: No significant findings. OTHER: No other significant finding. IMPRESSION: Slight interval increase in abdominal ascites without loculated collection. Subhepatic drain remains in place. No definite residual fluid in the gallbladder fossa. Bilateral pleural effusions, slightly increased on the left, with patchy airspace findings in the siva g bases bilaterally. TECHNICAL DOCUMENTATION: JOB ID: [id number] Quality ID # [id number]: Final reports with documentation of one or more dose reduction techniques (e.g., Au tomated exposure control, adjustment of the mA and/or kV according to patient size, use of iterative reconstruction technique) 2010 [employer]- All Rights Reserved Reading location - IP/workstation name: [email or web address]
--- NOTE | 2020-06-02 15:54 | PDOC PROGRESS REPORT ---
Subjective Progress Note for:: 06/02/20 Subjective:: Resting. Awake. No acute distress. Reason For Visit: BILIARY OBSTRUCTION S/P SURGERY Physical Exam Vital Signs: Temp Pulse Resp BP Pulse Ox 98.2 F 79 11 L 108/75 96 06/02/20 05:38 06/02/20 07:00 06/02/20 14:01 06/02/20 14:01 06/02/20 14:01 Intake & Output 06/01/20 06/02/20 06/03/20 06:59 06:59 06:59 Intake Total 2800 3069 1352 Output Total 1090 1705 730 Balance 1710 1364 622 Weight 134.4 kg 135.1 kg General appearance: PRESENT: no acute distress, cooperative Respiratory exam: PRESENT: clear to auscultation winter - O2 sats are in the high 90s on room air. Cardiovascular exam: PRESENT: RRR - Blood pressure 120/70. Heart rate 84. GI/Abdominal exam: PRESENT: other - Soft, tender in the right upper quadrant. Drain output is bilious. Results Laboratory Results: 06/02/20 09:55 06/02/20 04:40 06/02/20 06/02/20 04:40 09:55 WBC 24.4 H RBC 3.44 L Hgb 8.9 L Hct 28.0 L MCV 82 MCH 25.9 L MCHC 31.8 L RDW 22.2 H Plt Count 52 L Seg Neutrophils % Not Reportable Sodium 131.9 L Potassium 4.3 Chloride 100 Carbon Dioxide 24 Anion Gap 8 BUN 35 H Creatinine 2.20 H Est GFR ( Amer) 28 L Glucose 131 H Calcium 8.4 Phosphorus 4.5 Ferritin 606.00 H Total Bilirubin 5.5 H AST 152 H Alkaline Phosphatase 89 C-Reactive Protein 77.6 H Total Protein 5.3 L Albumin 2.0 L Prealbumin 5.4 L 05/31/20 12:15 Abdominal Fluid Gram Stain - Final 05/31/20 12:15 Abdominal Fluid Body Fluid Culture - Final Escherichia Coli Yeast, Not Ashlie Albicans No Anaerobic Organisms 05/30/20 15:30 Kolby Drainage (Aden Andrade) Gram Stain - Final 05/30/20 15:30 [place] Drainage (Aden Andrade) Body Fluid Culture - Final Escherichia Coli Yeast, Not Ashlie Albicans No Anaerobic Organisms 05/14/20 05/15/20 15:18 06:45 Troponin I < 0.012 < 0.012 Impressions: Abdomen Ultrasound 05/07/20 04:47 IMPRESSION: 1. Dilation of the common bile duct again identified measuring 1.2 cm. 2. Hepatic steatosis and hepatomegaly. 3. Prior cholecystectomy. PICC Line Insertion 05/14/20 00:00 IMPRESSION: SUCCESSFUL PLACEMENT OF A 5 FR DUAL LUMEN 42 CM PICC IN THE LEFT BASILIC VEIN. Venous Doppler Study 05/16/20 00:00 IMPRESSION: NO EVIDENCE DVT OR SVT IN EITHER LEG. Hepatobiliary Scan Nuclear Medicine 05/27/20 08:17 IMPRESSION: Prior cholecystectomy. No evidence of bile leak. Vascular Ultrasound 05/28/20 00:00 IMPRESSION: No evidence of portal vein thrombosis. Abdomen CT 05/29/20 00:00 IMPRESSION: 1. Progressive ascites. No focal drainable abscess. Surgical drain remains in place. 2. Worsening lung aeration. WBC Scan Nuclear Medicine 05/30/20 07:00 IMPRESSION: Diffuse uptake in the chest of uncertain etiology, inflammation versus infection. Chest X-Ray 05/31/20 06:00 IMPRESSION: Diffuse bilateral airspace disease slightly more marked centrally. This could represent vascular congestion or multifocal atypical pneumonia. Abdomen/Pelvis CT 06/02/20 00:00 IMPRESSION: Slight interval increase in abdominal ascites without loculated collection. Subhepatic drain remains in place. No definite residual fluid in the gallbladder fossa. Bilateral pleural effusions, slightly increased on the left, with patchy airspace findings in the lung bases bilaterally. Assessment & Plan - Diagnosis (1) Biliary anastomotic leak Is this a current diagnosis for this admission?: Yes Plan: CT scan shows mild increase in generalized ascites but no focal undrained fluid collection at the region of her surgery. Drain placement appears good. She is hemodynamically stable with no tachycardia, with good urine output and with normal oxygen saturations on room air. Continue broad-spectrum antibiotics and supportive care and TPN. - Time Critical Time spent with patient: Less than 15 minutes Anticipated Discharge Disposition: Intermediate Care Facility Anticipated Discharge Timeframe: Weeks
[2020-06-02] MEDS: AMINO ACIDS 5 %/DEXTROSE 20 % 1,000 ML IV PRN (16:50)
[2020-06-02] MEDS: FLUCONAZOLE 400 MG/NS RTU 400 MG/200 ML RTUPB IV SCH (18:11)
[2020-06-03] MEDS: INSULIN REG, HUMAN 100 UNIT/ML 3 ML VIAL (PYX) SUBCUT SCH ×5 (00:28→23:04)
[2020-06-03] MEDS: HYDROMORPHONE HCL INJ/PF 2 MG/ML AMPULE IV PRN ×3 (01:45→18:06)
[2020-06-03] MEDS: MEROPENEM 1 GM in NORMAL SALINE 50 ML IV SCH ×2 (01:46→14:13)
[2020-06-03] MEDS: RINGERS SOLUTION,LACTATED 1,000 ML IV PRN ×3 (01:47→19:36)
[2020-06-03] MEDS: ASCORBIC ACID IV SCH ×4 (04:00→21:42)
[2020-06-03] MEDS: WATER IV SCH ×4 (04:00→21:42)
[2020-06-03] MEDS: DEXTROSE 5% IV SCH ×4 (04:00→21:42)
[2020-06-03 04:49] LABS: HEMATOCRIT 29.1 % (36.0-47.0); HEMOGLOBIN 9.2 g/dL (12.0-15.5); MEAN CORPUSCULAR HEMOGLOBIN 25.9 pg (27.0-33.4); MEAN CORPUSCULAR HGB CONC 31.7 g/dL (32.0-36.0); MEAN CORPUSCULAR VOLUME 82 fl (80-97); RED BLOOD COUNT 3.57 10^6/uL (3.72-5.28); RED CELL DISTRIBUTION WIDTH 22.5 % (11.5-14.0)
[2020-06-03 05:06] LABS: ALBUMIN 2.1 g/dL (3.5-5.0); ALKALINE PHOSPHATASE 121 U/L (38-126); ANION GAP 5 (5-19); ASPARTATE AMINO TRANSFERASE 143 U/L (14-36); BILIRUBIN,DIRECT 3.4 mg/dL (0.0-0.4); BILIRUBIN,TOTAL 4.9 mg/dL (0.2-1.3); BLOOD UREA NITROGEN 35 mg/dL (7-20); CALCIUM 8.4 mg/dL (8.4-10.2); CARBON DIOXIDE 26 mmol/L (22-30); CHLORIDE 101 mmol/L (98-107); GLUCOSE 99 mg/dL (75-110); PHOSPHORUS 3.7 mg/dL (2.5-4.5); POTASSIUM 4.1 mmol/L (3.6-5.0); TOTAL PROTEIN 5.3 g/dL (6.3-8.2)
[2020-06-03 05:07] LABS: PROTHROMBIN TIME 18.3 SEC (11.4-15.4)
[2020-06-03 05:11] LABS: PLATELET COUNT 47 10^3/uL (150-450)
[2020-06-03 05:13] LABS: PREALBUMIN 7.1 mg/dL (17.6-36.0)
[2020-06-03] MEDS: HYDROCORTISONE SOD SUCCINATE INJ/PF 100 MG/2 ML SDV IV SCH (07:07)
[2020-06-03] MEDS: FOLIC ACID 1 MG TABLET PO SCH (09:33)
[2020-06-03] MEDS: CHOLECALCIFEROL (D3) 1,000 UNIT (25 MCG) TABLET PO SCH (09:36)
[2020-06-03] MEDS: NORMAL SALINE 10 ML SDV (SCHEDULED) IV SCH ×2 (09:36→21:43)
[2020-06-03] MEDS: LINEZOLID 600 MG/300 ML RTUPB IV SCH (09:36)
[2020-06-03] MEDS: ZINC SULFATE 220 MG CAPSULE PO SCH (09:36)
[2020-06-03] MEDS: FLUCONAZOLE 400 MG/NS RTU 400 MG/200 ML RTUPB IV SCH (09:44)
[2020-06-03] MEDS: THIAMINE HCL 200 MG in NORMAL SALINE 50 ML IV SCH ×2 (09:44→22:27)
[2020-06-03] MEDS: FAT EMULSIONS 250 ML IV SCH (09:44)
[2020-06-03] MEDS: LIDOCAINE 5% (700 MG) TRANSDERMAL ADH..PATCH TP SCH (09:49)
--- NOTE | 2020-06-03 10:27 | PDOC PROGRESS REPORT ---
Subjective Progress Note for:: 06/03/20 Subjective:: awake, alert more communicative Reason For Visit: BILIARY OBSTRUCTION S/P SURGERY Physical Exam Vital Signs: Temp Pulse Resp BP Pulse Ox 97.7 F 98 19 116/90 H 99 06/03/20 08:00 06/03/20 07:00 06/03/20 08:01 06/03/20 08:01 06/03/20 08:01 Intake & Output 06/02/20 06/03/20 06/04/20 06:59 06:59 06:59 Intake Total 3069 4004 Output Total 1705 2450 375 Balance 1364 1554 -375 Weight 135.1 kg 140.1 kg General appearance: PRESENT: no acute distress Head exam: PRESENT: normocephalic Eye exam: PRESENT: EOMI Mouth exam: PRESENT: dry mucosa Teeth exam: PRESENT: edentulous, poor dentation Neck exam: PRESENT: full ROM Respiratory exam: PRESENT: clear to auscultation winter Cardiovascular exam: PRESENT: RRR Pulses: PRESENT: normal femoral pulses, normal dorsalis pedis pul Breast: PRESENT: Normal GI/Abdominal exam: PRESENT: ascites, normal bowel sounds, soft, other - kolby serous Rectal exam: PRESENT: deferred Extremities exam: PRESENT: full ROM, +2 edema Musculoskeletal exam: PRESENT: normal inspection Neurological exam: PRESENT: alert, awake, oriented to person Skin exam: PRESENT: dry Results Laboratory Results: 06/03/20 04:24 06/03/20 04:24 06/02/20 06/03/20 06/03/20 09:55 04:24 04:24 WBC 24.4 H 26.0 H RBC 3.44 L 3.57 L Hgb 8.9 L 9.2 L Hct 28.0 L 29.1 L MCV 82 82 MCH 25.9 L 25.9 L MCHC 31.8 L 31.7 L RDW 22.2 H 22.5 H Plt Count 52 L 47 L Seg Neutrophils % Not Reportable Sodium 132.4 L Potassium 4.1 Chloride 101 Carbon Dioxide 26 Anion Gap 5 BUN 35 H Creatinine 1.67 H Est GFR ( Amer) 39 L Glucose 99 Calcium 8.4 Phosphorus 3.7 Magnesium 1.7 Total Bilirubin 4.9 H AST 143 H Alkaline Phosphatase 121 Total Protein 5.3 L Albumin 2.1 L Prealbumin 7.1 L 05/31/20 12:15 Abdominal Fluid Gram Stain - Final 05/31/20 12:15 Abdominal Fluid Body Fluid Culture - Final Escherichia Coli Yeast, Not Ashlie Albicans No Anaerobic Organisms 05/30/20 15:30 Kolby Drainage (Aden Andrade) Gram Stain - Final 05/30/20 15:30 Kolby Drainage (Aden Andrade) Body Fluid Culture - Final Escherichia Coli Yeast, Not Ashlie Albicans No Anaerobic Organisms 05/14/20 05/15/20 15:18 06:45 Troponin I < 0.012 < 0.012 Impressions: Abdomen Ultrasound 05/07/20 04:47 IMPRESSION: 1. Dilation of the common bile duct again identified measuring 1.2 cm. 2. Hepatic steatosis and hepatomegaly. 3. Prior cholecystectomy. PICC Line Insertion 05/14/20 00:00 IMPRESSION: SUCCESSFUL PLACEMENT OF A 5 FR DUAL LUMEN 42 CM PICC IN THE LEFT BASILIC VEIN. Venous Doppler Study 05/16/20 00:00 IMPRESSION: NO EVIDENCE DVT OR SVT IN EITHER LEG. Hepatobiliary Scan Nuclear Medicine 05/27/20 08:17 IMPRESSION: Prior cholecystectomy. No evidence of bile leak. Vascular Ultrasound 05/28/20 00:00 IMPRESSION: No evidence of portal vein thrombosis. Abdomen CT 05/29/20 00:00 IMPRESSION: 1. Progressive ascites. No focal drainable abscess. Surgical drain remains in place. 2. Worsening lung aeration. WBC Scan Nuclear Medicine 05/30/20 07:00 IMPRESSION: Diffuse uptake in the chest of uncertain etiology, inflammation versus infection. Chest X-Ray 05/31/20 06:00 IMPRESSION: Diffuse bilateral airspace disease slightly more marked centrally. This could represent vascular congestion or multifocal atypical pneumonia. Abdomen/Pelvis CT 06/02/20 00:00 IMPRESSION: Slight interval increase in abdominal ascites without loculated collection. Subhepatic drain remains in place. No definite residual fluid in the gallbladder fossa. Bilateral pleural effusions, slightly increased on the left, with patchy airspace findings in the lung bases bilaterally. Assessment & Plan - Diagnosis (1) Anemia Qualifiers: Anemia type: iron deficiency Iron deficiency anemia type: unspecified iron deficiency Qualified Code(s): D50.9 - Iron deficiency anemia, unspecified Is this a current diagnosis for this admission?: Yes - Time Time Spent: 50 to 70 Minutes Critical Time spent with patient: 35 or more minutes Anticipated Discharge Disposition: Home with Home Health Anticipated Discharge Timeframe: weeks - Plan Summary Plan Summary: Case discussed with DR Julio pt slowely improving poss fungemia on antifungals now will cont icu care for now cont mobilization physical therapy. trend wbc ct yesterday no obvious abscess.
--- NOTE | 2020-06-03 15:46 | PDOC PROGRESS REPORT ---
Subjective Progress Note for:: 06/03/20 Subjective:: Patient appears to be slowly improving. She seems to be more awake today than when I saw her Wednesday. She is making an acceptable amount of urine output and for the last 24 hours is March 2070 mL but nevertheless is still positive fluid balance. She is currently on TPN and IV fluids. Reason For Visit: BILIARY OBSTRUCTION S/P SURGERY Physical Exam Vital Signs: Temp Pulse Resp BP Pulse Ox 98.7 F 98 17 135/68 H 95 06/03/20 12:00 06/03/20 12:00 06/03/20 12:00 06/03/20 12:00 06/03/20 12:00 Intake & Output 06/02/20 06/03/20 06/04/20 06:59 06:59 06:59 Intake Total 3069 4004 1552 Output Total 1705 2450 1115 Balance 1364 1554 437 Weight 135.1 kg 140.1 kg 140.1 kg Exam: General appearance: PRESENT: no acute distress, cooperative, well-developed, well-nourished Head exam: PRESENT: atraumatic, normocephalic Eye exam: PRESENT: conjunctiva pale, PERRLA. ABSENT: scleral icterus Neck exam: ABSENT: JVD Respiratory exam: PRESENT: Diminished breath sounds. ABSENT: crackles, rales, rhonchi, unlabored, wheezes Cardiovascular exam: PRESENT: Regular rate rhythm -+S1, +S2. ABSENT: diastolic murmur, systolic murmur GI/Abdominal exam: PRESENT: Hypoactive bowel sounds, soft. ABSENT: guarding, mass, tenderness Extremities exam: Unchanged grade 3 bilateral lower extremity pitting edema up to her thighs and left upper extremity edema, not much swelling under her right arm Neurological exam: PRESENT: alert, awake, oriented to person, place and time. Skin exam: PRESENT: dry, warm, Cardiovascular exam: PRESENT: +S1, +S2, tachycardia GI/Abdominal exam: PRESENT: diminished bowel sounds, distended, hypoactive bowel sounds, tenderness. ABSENT: soft Results Laboratory Results: 06/03/20 04:24 06/03/20 04:24 06/03/20 06/03/20 04:24 04:24 WBC 26.0 H RBC 3.57 L Hgb 9.2 L Hct 29.1 L MCV 82 MCH 25.9 L MCHC 31.7 L RDW 22.5 H Plt Count 47 L Sodium 132.4 L Potassium 4.1 Chloride 101 Carbon Dioxide 26 Anion Gap 5 BUN 35 H Creatinine 1.67 H Est GFR ( Amer) 39 L Glucose 99 Calcium 8.4 Phosphorus 3.7 Magnesium 1.7 Total Bilirubin 4.9 H AST 143 H Alkaline Phosphatase 121 Total Protein 5.3 L Albumin 2.1 L Prealbumin 7.1 L 05/14/20 05/15/20 15:18 06:45 Troponin I < 0.012 < 0.012 Impressions: Abdomen Ultrasound 05/07/20 04:47 IMPRESSION: 1. Dilation of the common bile duct again identified measuring 1.2 cm. 2. Hepatic steatosis and hepatomegaly. 3. Prior cholecystectomy. PICC Line Insertion 05/14/20 00:00 IMPRESSION: SUCCESSFUL PLACEMENT OF A 5 FR DUAL LUMEN 42 CM PICC IN THE LEFT BASILIC VEIN. Venous Doppler Study 05/16/20 00:00 IMPRESSION: NO EVIDENCE DVT OR SVT IN EITHER LEG. Hepatobiliary Scan Nuclear Medicine 05/27/20 08:17 IMPRESSION: Prior cholecystectomy. No evidence of bile leak. Vascular Ultrasound 05/28/20 00:00 IMPRESSION: No evidence of portal vein thrombosis. Abdomen CT 05/29/20 00:00 IMPRESSION: 1. Progressive ascites. No focal drainable abscess. Surgical drain remains in place. 2. Worsening lung aeration. WBC Scan Nuclear Medicine 05/30/20 07:00 IMPRESSION: Diffuse uptake in the chest of uncertain etiology, inflammation versus infection. Chest X-Ray 05/31/20 06:00 IMPRESSION: Diffuse bilateral airspace disease slightly more marked centrally. This could represent vascular congestion or multifocal atypical pneumonia. Abdomen/Pelvis CT 06/02/20 00:00 IMPRESSION: Slight interval increase in abdominal ascites without loculated collection. Subhepatic drain remains in place. No definite residual fluid in the gallbladder fossa. Bilateral pleural effusions, slightly increased on the left, with patchy airspace findings in the lung bases bilaterally. Assessment & Plan - Diagnosis (1) Sepsis with acute organ dysfunction and septic shock Qualifiers: Sepsis type: sepsis due to unspecified organism Severe sepsis acute organ dysfunction type: acute renal failure Acute renal failure type: with acute tu bular necrosis Qualified Code(s): A41.9 - Sepsis, unspecified organism; R65.21 - Severe sepsis with septic shock; N17.0 - Acute kidney failure with tubular necrosis Is this a current diagnosis for this admission?: Yes Plan: Currently on broad-spectrum antibiotics with IV meropenem and linezolid. [employer] managing. (2) KEERTHI (acute kidney injury) Is this a current diagnosis for this admission?: Yes Plan: Currently nonoliguric. Most likely secondary to acute tubular necrosis secondary to sepsis. Patient's creatinine continues to improve now with creatinine of 1.67. There is no indication for any acute renal replacement therapy at this time. Continue to monitor kidney function. (3) Acute metabolic encephalopathy Is this a current diagnosis for this admission?: Yes Plan: Improving. (4) Cholangitis Is this a current diagnosis for this admission?: Yes (5) Edema Qualifiers: Edema type: due to malnutrition Is this a current diagnosis for this admission?: Yes Plan: Patient has significant lower extremity edema consistent with anasarca with severe hypoalbuminemia and likely third spacing. May need to decrease her maintenance IV fluids since the patient has increasingly third spacing. (6) Biliary stricture Is this a current diagnosis for this admission?: Yes Plan: Status post surgery. (7) Hypomagnesemia Is this a current diagnosis for this admission?: Yes Plan: Replace as needed. (8) Hyponatremia Is this a current diagnosis for this admission?: Yes Plan: Most likely secondary to hypervolemic state with severe third spacing due to severe hypoalbuminemia. Mild and unchanged. (9) Lactic acidosis Is this a current diagnosis for this admission?: Yes Plan: Consistent with sepsis. (10) Transaminitis Is this a current diagnosis for this admission?: Yes - Time Time with patient: 15-25 minutes
--- NOTE | 2020-06-03 17:15 | PDOC CRITICAL CARE PROG REPORT ---
General Date:: 06/02/20 Resuscitation Status: Full Code Medical Power of Zipper Ironer: DaughterJessica Events in the past 12 to 24 Hours:: Still encephalopathic Review of systems relevant to events:: GI, Neurological Reason for ICU Addmission:: Tenuous neuro status. May be septic from fungemia. - Medications: Medications reviewed and adjusted accordingly: Yes Vasopressors:: None Sedation:: None Physical Exam Vital Signs: Temp Pulse Resp BP Pulse Ox 97.5 F 103 H 19 123/89 H 96 06/03/20 16:00 06/03/20 14:00 06/03/20 16:00 06/03/20 15:01 06/03/20 16:00 Intake & Output 06/02/20 06/03/20 06/04/20 06:59 06:59 06:59 Intake Total 3069 4004 1852 Output Total 1705 2450 2025 Balance 1364 1554 -173 Weight 135.1 kg 140.1 kg 140.1 kg Weight/Height Weight 140.1 kg Height 5 ft 8 in General appearance: PRESENT: no acute distress, disheveled Head exam: PRESENT: atraumatic, normocephalic Eye exam: PRESENT: conjunctiva pink, EOMI, PERRLA. ABSENT: scleral icterus Ear exam: PRESENT: normal external ear exam Mouth exam: PRESENT: other - Poor oral hygeine Teeth exam: PRESENT: dental caries Respiratory exam: PRESENT: clear to auscultation winter, decreased breath sounds. ABSENT: rales, rhonchi, wheezes Cardiovascular exam: PRESENT: RRR. ABSENT: diastolic murmur, rubs, systolic murmur GI/Abdominal exam: PRESENT: guarding, hypoactive bowel sounds, other - Less tender, no rebound, ROSALVA drain with serous fluid, some bile Rectal exam: PRESENT: deferred Gentrourinary exam: PRESENT: indwelling catheter Neurological exam: PRESENT: alert, altered, CN II-XII grossly intact Psychiatric exam: PRESENT: flat affect Skin exam: PRESENT: dry, intact, warm. ABSENT: cyanosis, rash Laboratory/Radiographs Laboratory Results: 06/03/20 04:24 06/03/20 04:24 06/03/20 06/03/20 04:24 04:24 WBC 26.0 H RBC 3.57 L Hgb 9.2 L Hct 29.1 L MCV 82 MCH 25.9 L MCHC 31.7 L RDW 22.5 H Plt Count 47 L Sodium 132.4 L Potassium 4.1 Chloride 101 Carbon Dioxide 26 Anion Gap 5 BUN 35 H Creatinine 1.67 H Est GFR ( Amer) 39 L Glucose 99 Calcium 8.4 Phosphorus 3.7 Magnesium 1.7 Total Bilirubin 4.9 H AST 143 H Alkaline Phosphatase 121 Total Protein 5.3 L Albumin 2.1 L Prealbumin 7.1 L 05/14/20 05/15/20 15:18 06:45 Troponin I < 0.012 < 0.012 Impressions: Abdomen Ultrasound 05/07/20 04:47 IMPRESSION: 1. Dilation of the common bile duct again identified measuring 1.2 cm. 2. Hepatic steatosis and hepatomegaly. 3. Prior cholecystectomy. PICC Line Insertion 05/14/20 00:00 IMPRESSION: SUCCESSFUL PLACEMENT OF A 5 FR DUAL LUMEN 42 CM PICC IN THE LEFT BASILIC VEIN. Venous Doppler Study 05/16/20 00:00 IMPRESSION: NO EVIDENCE DVT OR SVT IN EITHER LEG. Hepatobiliary Scan Nuclear Medicine 05/27/20 08:17 IMPRESSION: Prior cholecystectomy. No evidence of bile leak. Vascular Ultrasound 05/28/20 00:00 IMPRESSION: No evidence of portal vein thrombosis. Abdomen CT 05/29/20 00:00 IMPRESSION: 1. Progressive ascites. No focal drainable abscess. Surgical drain remains in place. 2. Worsening lung aeration. WBC Scan Nuclear Medicine 05/30/20 07:00 IMPRESSION: Diffuse uptake in the chest of uncertain etiology, inflammation versus infection. Chest X-Ray 05/31/20 06:00 IMPRESSION: Diffuse bilateral airspace disease slightly more marked centrally. This could represent vascular congestion or multifocal atypical pneumonia. Abdomen/Pelvis CT 06/02/20 00:00 IMPRESSION: Slight interval increase in abdominal ascites without loculated collection. Subhepatic drain remains in place. No definite residual fluid in the gallbladder fossa. Bilateral pleural effusions, slightly increased on the left, with patchy airspa ce findings in the lung bases bilaterally. All labs, radiographs, diagnostic studies and EKGs were personally reviewed: Yes In addition, reports of radiographic and diagnostic studies were read: Yes Assessment and Plan - Diagnosis (1) Acute metabolic encephalopathy Is this a current diagnosis for this admission?: Yes Plan: Seems to be improving (2) Hypoalbuminemia Is this a current diagnosis for this admission?: Yes Plan: Effecting wound healing, on TPN. Steroids stopped (3) Malnutrition compromising bodily function Is this a current diagnosis for this admission?: Yes Plan: Will keep on TPN until able to take PO. (4) Abnormal liver function test Is this a current diagnosis for this admission?: Yes Plan: Improving (5) Anemia Qualifiers: Anemia type: iron deficiency Iron deficiency anemia type: unspecified iron deficiency Qualified Code(s): D50.9 - Iron deficiency anemia, unspecified Is this a current diagnosis for this admission?: Yes Plan: Stable (6) Biliary stricture Is this a current diagnosis for this admission?: Yes Plan: With surgery she has nba in wound and urine. This could be a sign of candidiasis which is not always easy to find. (7) Cirrhosis of liver Qualifiers: Hepatic cirrhosis type: unspecified biliary cirrhosis Qualified Code(s): K74.5 - Biliary cirrhosis, unspecified Is this a current diagnosis for this admission?: Yes (8) Sepsis with acute organ dysfunction and septic shock Qualifiers: Sepsis type: sepsis due to unspecified organism Severe sepsis acute organ dysfunction type: acute renal failure Acute renal failure type: with acute tubular necrosis Qualified Code(s): A41.9 - Sepsis, unspecified organism; R65.21 - Severe sepsis with septic shock; N17.0 - Acute kidney failure with tubular necrosis Is this a current diagnosis for this admission?: Yes Plan: She is not classically septic but the possibility of fungemia is raised. Keep on diflucan. (9) Lactic acidosis Is this a current diagnosis for this admission?: Yes Plan: Improved Plan Summary: Continue diflucan and ICU placement until mental status better. Critical Time Critical Time (minutes): 35 Level of Care: ICU Anticipated discharge: SNF Anticipated DC Timeframe: Other -: 1. The care of a critical patient is a dynamic process. This note is a promotions representative synopsis but static in nature. The timeframe for treatments given in order is not necessarily the actual time these treatments may have been done. 2. This patient requires critical care secondary to ongoing requirements for therapy not offered or safe outside the critical care environment. Transfer to a lower level of care will result in altered life or limb morbidity and mortality. 3. Multidisciplinary rounds completed. 4. ABCDE bundle addressed.
[2020-06-03] MEDS: AMINO ACIDS 5 %/DEXTROSE 20 % 1,000 ML IV PRN (17:55)
[2020-06-04] MEDS: MEROPENEM 1 GM in NORMAL SALINE 50 ML IV SCH ×2 (01:10→14:26)
[2020-06-04] MEDS: HYDROMORPHONE HCL INJ/PF 2 MG/ML AMPULE IV PRN ×3 (01:10→23:46)
[2020-06-04] MEDS: RINGERS SOLUTION,LACTATED 1,000 ML IV PRN ×3 (02:08→18:15)
[2020-06-04] MEDS: WATER IV SCH ×4 (02:08→21:56)
[2020-06-04] MEDS: DEXTROSE 5% IV SCH ×4 (02:08→21:56)
[2020-06-04] MEDS: ASCORBIC ACID IV SCH ×4 (02:08→21:56)
[2020-06-04] MEDS: INSULIN REG, HUMAN 100 UNIT/ML 3 ML VIAL (PYX) SUBCUT SCH ×3 (05:38→18:21)
[2020-06-04 08:05] LABS: HEMATOCRIT 31.4 % (36.0-47.0); HEMOGLOBIN 10.2 g/dL (12.0-15.5); MEAN CORPUSCULAR HEMOGLOBIN 26.2 pg (27.0-33.4); MEAN CORPUSCULAR HGB CONC 32.5 g/dL (32.0-36.0); MEAN CORPUSCULAR VOLUME 81 fl (80-97); RED BLOOD COUNT 3.88 10^6/uL (3.72-5.28); RED CELL DISTRIBUTION WIDTH 22.7 % (11.5-14.0); WHITE BLOOD COUNT 28.7 10^3/uL (4.0-10.5)
--- NOTE | 2020-06-04 08:05 | PDOC PROGRESS REPORT ---
Subjective Progress Note for:: 06/04/20 Subjective:: awake, altert Reason For Visit: BILIARY OBSTRUCTION S/P SURGERY Physical Exam Vital Signs: Temp Pulse Resp BP Pulse Ox 97.6 F 102 H 17 110/74 97 06/04/20 04:00 06/03/20 19:00 06/04/20 06:01 06/04/20 06:01 06/04/20 06:00 Intake & Output 06/03/20 06/04/20 06/05/20 06:59 06:59 06:59 Intake Total 4004 3832 Output Total 2450 5020 Balance 1554 -1188 Weight 140.1 kg 138.6 kg General appearance: PRESENT: no acute distress Head exam: PRESENT: normocephalic Eye exam: PRESENT: EOMI Ear exam: PRESENT: normal external ear exam Mouth exam: PRESENT: dry mucosa Teeth exam: PRESENT: edentulous, poor dentation Neck exam: PRESENT: full ROM Respiratory exam: PRESENT: clear to auscultation winter Cardiovascular exam: PRESENT: RRR Pulses: PRESENT: normal radial pulses, normal femoral pulses Vascular exam: PRESENT: normal capillary refill GI/Abdominal exam: PRESENT: ascites, soft, other - deisy + ascitic fluid Rectal exam: PRESENT: deferred Gentrourinary exam: PRESENT: indwelling catheter Extremities exam: PRESENT: +2 edema Musculoskeletal exam: PRESENT: full ROM Neurological exam: PRESENT: alert, awake, oriented to person, oriented to place Psychiatric exam: PRESENT: appropriate affect Skin exam: PRESENT: dry Results Laboratory Results: 06/03/20 06/04/20 06/04/20 19:45 04:23 04:25 WBC Cancelled RBC Cancelled Hgb Cancelled Hct Cancelled MCV Cancelled MCH Cancelled MCHC Cancelled RDW Cancelled Plt Count Cancelled Seg Neutrophils % Cancelled Sodium Cancelled Potassium Cancelled Chloride Cancelled Carbon Dioxide Cancelled Anion Gap Cancelled BUN Cancelled Creatinine Cancelled Est GFR ( Amer) Cancelled Est GFR (Non-Af Amer) Cancelled Glucose Cancelled Calcium Cancelled Triglycerides 75 05/29/20 19:28 Blood Blood Culture - Final NO GROWTH IN 5 DAYS 05/29/20 17:22 Blood Blood Culture - Final NO GROWTH IN 5 DAYS 05/14/20 05/15/20 15:18 06:45 Troponin I < 0.012 < 0.012 Impressions: Abdomen Ultrasound 05/07/20 04:47 IMPRESSION: 1. Dilation of the common bile duct again identified measuring 1.2 cm. 2. Hepatic steatosis and hepatomegaly. 3. Prior cholecystectomy. PICC Line Insertion 05/14/20 00:00 IMPRESSION: SUCCESSFUL PLACEMENT OF A 5 FR DUAL LUMEN 42 CM PICC IN THE LEFT BASILIC VEIN. Venous Doppler Study 05/16/20 00:00 IMPRESSION: NO EVIDENCE DVT OR SVT IN EITHER LEG. Hepatobiliary Scan Nuclear Medicine 05/27/20 08:17 IMPRESSION: Prior cholecystectomy. No evidence of bile leak. Vascular Ultrasound 05/28/20 00:00 IMPRESSION: No evidence of portal vein thrombosis. Abdomen CT 05/29/20 00:00 IMPRESSION: 1. Progressive ascites. No focal drainable abscess. Surgical drain remains in place. 2. Worsening lung aeration. WBC Scan Nuclear Medicine 05/30/20 07:00 IMPRESSION: Diffuse uptake in the chest of uncertain etiology, inflammation versus infection. Chest X-Ray 05/31/20 06:00 IMPRESSION: Diffuse bilateral airspace disease slightly more marked centrally. This could represent vascular congestion or multifocal atypical pneumonia. Abdomen/Pelvis CT 06/02/20 00:00 IMPRESSION: Slight interval increase in abdominal ascites without loculated collection. Subhepatic drain remains in place. No definite residual fluid in the gallbladder fossa. Bilateral pleural effusions, slightly increased on the left, with patchy airspace findings in the lung bases bilaterally. Assessment & Plan - Diagnosis (1) Anemia Qualifiers: Anemia type: iron deficiency Iron deficiency anemia type: unspecified iron deficiency Qualified Code(s): D50.9 - Iron deficiency anemia, unspecified Is this a current diagnosis for this admission?: Yes - Time Time Spent: 30 to 50 Minutes Critical Time spent with patient: 25-34 minutes Medications reviewed and adjusted accordingly: No Anticipated Discharge Disposition: Home, Self Care Anticipated Discharge Timeframe: weeks - Plan Summary Plan Summary: pt npo, awaiting swallowing study on tpn labs today pending still no obvious intrabdominal source for high wbc and clinical deterioriation after 5th ct scan + ascites plan cont tpn for sever malnutrition. cont antifungals andabx
[2020-06-04 08:12] LABS: ANION GAP 5 (5-19); BLOOD UREA NITROGEN 31 mg/dL (7-20); CALCIUM 8.6 mg/dL (8.4-10.2); CARBON DIOXIDE 27 mmol/L (22-30); CHLORIDE 102 mmol/L (98-107); GLUCOSE 116 mg/dL (75-110); POTASSIUM 3.9 mmol/L (3.6-5.0)
--- NOTE | 2020-06-04 08:57 | Progress Note ---
Provider Note Provider Note: [facility] ID Telephone Advice Consultation Chart reviewed. Patient is a 49-year-old woman with rather complicated hospital stay. She has a history of gastric bypass surgery and anemia. She was admitted due to abdominal pain almost a month ago. SHe was evaluated by surgery adn had exploratory laparotomy on 05/09. She had ventral hernia repair, choledochoduodenostomy with ROSALVA drain placement and liver biopsy. She developed a leukemod reaction after that with elevtaed WBC up to 40k. A urine culture grew VRE for which she received linezolid, although she was asymptomatic (ASB). She had a PICC line placed on 05/14. She had a Doppler US of the lower extremities that was negative for DVT. She was initially on Unasyn and Flagyl, transitioned to Zosyn. She has had multiple CT scans throughout this admission. She had a HIDA scan on 05/22 that didn't show bile leak. She developed KEERTHI due to ATN, nephrology was consulted. On 05/30 she had a WBC tagged scan that showed diffuse uptake in thorax. She was transferred to MICU that day due to tachycardia, hypotension, lactic acidosis. She was started on broad spectrum antibiotics meropenem and linezolid. Blood cultures have been negative since admission. Cultures from ROSALVA drain and ascites was positive for Ecoli and yeast not Ashlie albicans, no anaerobes isolated. She was started on fluconazole. ID consulted for recommendations. PMH: Anemia PSH: Gastric bypass Exp lap Allergies: No Known Allergies Allergy (Verified 07/19/19 08:13) Medications: Calcium Carbonate [Calcium] 500 mg PO DAILY 05/07/20 Ferrous Sulfate [Feosol 325 mg Tablet] 325 mg PO DAILY 05/07/20 Multivitamin 1 each PO DAILY 05/07/20 Lopez-3 Fatty Acids [Lopez-3] 1,000 mg PO DAILY 05/07/20 Vital Signs: Temp Pulse Resp BP Pulse Ox 97.6 F 102 H 17 110/74 97 06/04/20 04:00 06/03/20 19:00 06/04/20 06:01 06/04/20 06:01 06/04/20 06:00 Intake & Output 06/03/20 06/04/20 06/05/20 06:59 06:59 06:59 Intake Total 4004 3832 Output Total 2450 5020 Balance 1554 -1188 Weight 140.1 kg 138.6 kg Weight/Height Weight 138.6 kg Height 5 ft 8 in Laboratories: 06/04/20 07:40 MCV Cancelled 06/04/20 04:23 MCH Cancelled 06/04/20 04:23 MCHC Cancelled 06/04/20 04:23 RDW Cancelled 06/04/20 04:23 Seg Neutrophils % Cancelled 06/04/20 04:23 Retic Count (auto) 2.56 % (0.66-2.85) 05/07/20 03:22 Carbonic Acid 0.92 mmol/L (1.05-1.35) L 05/31/20 05:41 HCO3/H2CO3 Ratio 22:1 05/31/20 05:41 ABG pH 7.44 (7.35-7.45) 05/31/20 05:41 ABG pCO2 30.5 mmHg (35-45) L 05/31/20 05:41 ABG pO2 68.5 mmHg (80-100) L 05/31/20 05:41 ABG HCO3 20.4 mmol/L (20-24) 05/31/20 05:41 ABG O2 Saturation 94.6 % (94-98) 05/31/20 05:41 ABG Base Excess -3.3 mmol/L 05/31/20 05:41 FiO2 ROOM AIR 05/31/20 05:41 Chloride 102 mmol/L (98-107) 06/04/20 07:40 Carbon Dioxide 27 mmol/L (22-30) 06/04/20 07:40 Anion Gap 5 (5-19) 06/04/20 07:40 Est GFR ( Amer) > 60 (>60) 06/04/20 07:40 Est GFR (Non-Af Amer) Cancelled 06/04/20 04:25 Glucose 116 mg/dL (75-110) H 06/04/20 07:40 Lactic Acid 3.2 mmol/L (0.7-2.1) H 05/31/20 05:41 Calcium 8.6 mg/dL (8.4-10.2) 06/04/20 07:40 Phosphorus 3.7 mg/dL (2.5-4.5) 06/03/20 04:24 Magnesium 1.7 mg/dL (1.6-2.3) 06/03/20 04:24 Iron 19.7 ug/dL (37-170) L 05/07/20 03:22 TIBC 399 ug/dL (250-450) 05/07/20 03:22 % Saturation 5 % 05/07/20 03:22 Ferritin 606.00 ng/mL (11.1-264.0) H 06/02/20 04:40 Total Bilirubin 4.9 mg/dL (0.2-1.3) H 06/03/20 04:24 AST 143 U/L (14-36) H 06/03/20 04:24 Alkaline Phosphatase 121 U/L (38-126) 06/03/20 04:24 Ammonia 14.8 umol/L (9-33) 05/31/20 05:41 C-Reactive Protein 77.6 mg/L (<10.0) H 06/02/20 04:40 Total Protein 5.3 g/dL (6.3-8.2) L 06/03/20 04:24 Albumin 2.1 g/dL (3.5-5.0) L 06/03/20 04:24 Prealbumin 7.1 mg/dL (17.6-36.0) L 06/03/20 04:24 Triglycerides 75 mg/dL (<150) 06/03/20 19:45 Cholesterol < 50.00 mg/dL (0-200) 05/31/20 05:41 LDL Cholesterol Direct < 30 mg/dL (<100) 05/31/20 05:41 VLDL Cholesterol 13.0 mg/dL (10-31) 05/31/20 05:41 HDL Cholesterol 6 mg/dL (>40) L 05/31/20 05:41 Amylase < 30 U/L (30-110) L 05/31/20 05:41 Lipase 185.9 U/L (23-300) 05/27/20 14:21 Vitamin B12 > 1000.0 pg/mL (239-931) H 05/18/20 05:35 Folate 3.47 ng/mL (>2.76) 05/07/20 03:22 TSH 2.44 uIU/mL (0.47-4.68) 05/18/20 05:35 Urine Color YELLOW 05/19/20 15:40 Urine Appearance SLIGHTLY-CLOUDY 05/19/20 15:40 Urine pH 5.0 (5.0-9.0) 05/19/20 15:40 Ur Specific Eden 1.011 05/19/20 15:40 Urine Protein NEGATIVE mg/dL (NEGATIVE) 05/19/20 15:40 Urine Glucose (UA) NEGATIVE mg/dL (NEGATIVE) 05/19/20 15:40 Urine Ketones NEGATIVE mg/dL (NEGATIVE) 05/19/20 15:40 Urine Blood MODERATE (NEGATIVE) H 05/19/20 15:40 Urine Nitrite NEGATIVE (NEGATIVE) 05/07/20 07:51 Ur Leukocyte Esterase NEGATIVE (NEGATIVE) 05/07/20 07:51 Urine WBC (Auto) 49 /HPF 05/07/20 07:51 Urine RBC (Auto) 18 /HPF 05/19/20 15:40 Blood Type AB POSITIVE 05/31/20 10:13 Antibody Screen NEGATIVE 05/31/20 10:13 05/29/20 19:28 Blood Blood Culture - Final NO GROWTH IN 5 DAYS 05/29/20 17:22 Blood Blood Culture - Final NO GROWTH IN 5 DAYS 05/14/20 05/15/20 15:18 06:45 Troponin I < 0.012 < 0.012 Microbiology: Blood cultures: 05/19 negative 05/29 negative Urine culture 05/19 VRE ROSALVA drain culture 05/30 E coli, Yeast not Ashlie albicans, no anaerobes Radiology: Abdomen Ultrasound 05/07/20 04:47 IMPRESSION: 1. Dilation of the common bile duct again identified measuring 1.2 cm. 2. Hepatic steatosis and hepatomegaly. 3. Prior cholecystectomy. PICC Line Insertion 05/14/20 00:00 IMPRESSION: SUCCESSFUL PLACEMENT OF A 5 FR DUAL LUMEN 42 CM PICC IN THE LEFT BASILIC VEIN. Venous Doppler Study 05/16/20 00:00 IMPRESSION: NO EVIDENCE DVT OR SVT IN EITHER LEG. Hepatobiliary Scan Nuclear Medicine 05/27/20 08:17 IMPRESSION: Prior cholecystectomy. No evidence of bile leak. Vascular Ultrasound 05/28/20 00:00 IMPRESSION: No evidence of portal vein thrombosis. Abdomen CT 05/29/20 00:00 IMPRESSION: 1. Progressive ascites. No focal drainable abscess. Surgical drain remains in place. 2. Worsening lung aeration. WBC Scan Nuclear Medicine 05/30/20 07:00 IMPRESSION: Diffuse uptake in the chest of uncertain etiology, inflammation versus infection. Chest X-Ray 05/31/20 06:00 IMPRESSION: Diffuse bilateral airspace disease slightly more marked centrally. This could represent vascular congestion or multifocal atypical pneumonia. Abdomen/Pelvis CT 06/02/20 00:00 IMPRESSION: Slight interval increase in abdominal ascites without loculated collection. Subhepatic drain remains in place. No definite residual fluid in the gallbladder fossa. Bilateral pleural effusions, slightly increased on the left, with patchy airspace findings in the lung bases bilaterally. Assessment and recommendations: Patient evaluated due to persistent leukocytosis in the setting of biliary stricutre s/p exp lap. She has received antibiotics on and off without significant change in WBC count. WBC remains elevated. She recently became hypotensive and with lactic acidosis and fluid cultture is positive fro E coli and yeast not Ashlie albicans. STOP IT trial recommends a short course of antibiotics after adequate source control has been achieved for intra abdominal infections, however in this case it is not clear if good source control has been achieved as ascites continues to increase, although no organized abscess has been found. Yeast not Ashlie albicans raises concerns for Ashlie glabrata that is often resistant to fluconazole or Ashlie krusei which is intrinsically resistant to fluconazole. For this reason will recommend micafungin 100 mg iv daily. Blood cultures remain negative. She does have a PICC line, if there is a bloodstream infection documented later on this might have to be removed. Continue meropenem and add micafungin for now. Duration of therapy will depend on source control and clinical response, but usually a 2 week course is required. Alea Palumbo MD [facility] [id number]
[2020-06-04 08:59] LABS: ABSOLUTE LYMPHOCYTES# (MANUAL) 1.1 10^3/uL (0.5-4.7); ABSOLUTE MONOCYTES # (MANUAL) 1.7 10^3/uL (0.1-1.4); BASOPHILS % (MANUAL) 0 % (0-2); EOSINOPHILS % (MANUAL) 0 % (0-6); LYMPHOCYTES % (MANUAL) 4 % (13-45); MONOCYTES % (MANUAL) 6 % (3-13); SEGMENTED NEUTROPHILS % (MAN) 90 % (42-78); TOTAL CELLS COUNTED 100
[2020-06-04 09:17] LABS: ANISOCYTOSIS 3+; HYPOCHROMASIA SLIGHT; PLATELET COMMENT DECREASED; POIKILOCYTOSIS SLIGHT; POLYCHROMASIA 1+; TARGET CELLS 1+; TEAR DROP CELLS 1+
[2020-06-04 09:27] LABS: PLATELET COUNT 45 10^3/uL (150-450)
[2020-06-04] MEDS: FLUCONAZOLE 400 MG/NS RTU 400 MG/200 ML RTUPB IV SCH (09:48)
[2020-06-04] MEDS: LIDOCAINE 5% (700 MG) TRANSDERMAL ADH..PATCH TP SCH (09:49)
[2020-06-04] MEDS: FOLIC ACID 1 MG TABLET PO SCH (09:49)
[2020-06-04] MEDS: NORMAL SALINE 10 ML SDV (SCHEDULED) IV SCH ×2 (09:50→21:08)
[2020-06-04] MEDS: ZINC SULFATE 220 MG CAPSULE PO SCH (09:50)
[2020-06-04] MEDS: CHOLECALCIFEROL (D3) 1,000 UNIT (25 MCG) TABLET PO SCH (09:50)
[2020-06-04] MEDS: THIAMINE HCL 200 MG in NORMAL SALINE 50 ML IV SCH ×2 (10:02→21:56)
[2020-06-04] MEDS: AMINO ACIDS 5 %/DEXTROSE 20 % 1,000 ML IV PRN (18:15)
[2020-06-05] MEDS ORDERED: METOPROLOL TARTRATE PF/INJ 5 MG/5 ML SDV IV ONE (00:03)
[2020-06-05] MEDS: INSULIN REG, HUMAN 100 UNIT/ML 3 ML VIAL (PYX) SUBCUT SCH ×4 (00:38→17:55)
[2020-06-05] MEDS: RINGERS SOLUTION,LACTATED 1,000 ML IV PRN ×3 (01:55→15:27)
[2020-06-05] MEDS: ASCORBIC ACID IV SCH ×4 (03:49→21:59)
[2020-06-05] MEDS: DEXTROSE 5% IV SCH ×4 (03:49→21:59)
[2020-06-05] MEDS: WATER IV SCH ×4 (03:49→21:59)
[2020-06-05] MEDS: MEROPENEM 1 GM in NORMAL SALINE 50 ML IV SCH (03:50)
[2020-06-05 05:50] LABS: PROTHROMBIN TIME 18.3 SEC (11.4-15.4)
[2020-06-05 05:53] LABS: ANION GAP 5 (5-19); BLOOD UREA NITROGEN 28 mg/dL (7-20); CALCIUM 8.2 mg/dL (8.4-10.2); CARBON DIOXIDE 27 mmol/L (22-30); CHLORIDE 103 mmol/L (98-107); GLUCOSE 90 mg/dL (75-110); HEMATOCRIT 29.9 % (36.0-47.0); HEMOGLOBIN 9.6 g/dL (12.0-15.5); MEAN CORPUSCULAR HEMOGLOBIN 26.4 pg (27.0-33.4); MEAN CORPUSCULAR HGB CONC 32.1 g/dL (32.0-36.0); MEAN CORPUSCULAR VOLUME 82 fl (80-97); PHOSPHORUS 3.2 mg/dL (2.5-4.5); POTASSIUM 3.8 mmol/L (3.6-5.0); RED BLOOD COUNT 3.64 10^6/uL (3.72-5.28); RED CELL DISTRIBUTION WIDTH 22.1 % (11.5-14.0); TRIGLYCERIDES 116 mg/dL (<150)
[2020-06-05 05:59] LABS: PREALBUMIN 7.5 mg/dL (17.6-36.0)
[2020-06-05] MEDS: HYDROMORPHONE HCL INJ/PF 2 MG/ML AMPULE IV PRN ×4 (06:00→22:07)
[2020-06-05 06:44] LABS: PLATELET COUNT 52 10^3/uL (150-450); WHITE BLOOD COUNT 35.1 10^3/uL (4.0-10.5)
--- NOTE | 2020-06-05 08:23 | PDOC PROGRESS REPORT ---
Subjective Progress Note for:: 06/05/20 Subjective:: awake, alert exam essentially unchanged Reason For Visit: BILIARY OBSTRUCTION S/P SURGERY Physical Exam Vital Signs: Temp Pulse Resp BP Pulse Ox 97.4 F 115 H 13 120/78 95 06/05/20 04:00 06/04/20 19:00 06/05/20 07:01 06/05/20 07:00 06/05/20 07:01 Intake & Output 06/04/20 06/05/20 06/06/20 06:59 06:59 06:59 Intake Total 3934 3302 102 Output Total 5025 4159 Balance -9039 -763 102 Weight 138.6 kg 140.1 kg General appearance: PRESENT: mild distress Head exam: PRESENT: normocephalic Eye exam: PRESENT: EOMI Mouth exam: PRESENT: dry mucosa Teeth exam: PRESENT: edentulous, poor dentation Neck exam: PRESENT: full ROM Respiratory exam: PRESENT: clear to auscultation winter Cardiovascular exam: PRESENT: RRR Pulses: PRESENT: normal femoral pulses, normal dorsalis pedis pul Vascular exam: PRESENT: normal capillary refill Breast: PRESENT: Normal GI/Abdominal exam: PRESENT: soft, other - deisy draining ascites Rectal exam: PRESENT: deferred Gentrourinary exam: PRESENT: indwelling catheter Extremities exam: PRESENT: other - sever edema and anasarca Neurological exam: PRESENT: alert, awake, oriented to person, oriented to place Psychiatric exam: PRESENT: appropriate affect Skin exam: PRESENT: dry Results Laboratory Results: 06/05/20 04:30 06/05/20 04:30 06/04/20 06/05/20 06/05/20 07:40 04:30 04:30 WBC 28.7 H 35.1 H* RBC 3.88 3.64 L Hgb 10.2 L 9.6 L Hct 31.4 L 29.9 L MCV 81 82 MCH 26.2 L 26.4 L MCHC 32.5 32.1 RDW 22.7 H 22.1 H Plt Count 45 L 52 L Seg Neutrophils % Not Reportable Sodium 135.3 L Potassium 3.8 Chloride 103 Carbon Dioxide 27 Anion Gap 5 BUN 28 H Creatinine 0.72 Est GFR ( Amer) > 60 Glucose 90 Calcium 8.2 L Phosphorus 3.2 Magnesium 1.5 L Prealbumin 7.5 L Triglycerides 116 05/14/20 05/15/20 15:18 06:45 Troponin I < 0.012 < 0.012 Impressions: Abdomen Ultrasound 05/07/20 04:47 IMPRESSION: 1. Dilation of the common bile duct again identified measuring 1.2 cm. 2. Hepatic steatosis and hepatomegaly. 3. Prior cholecystectomy. PICC Line Insertion 05/14/20 00:00 IMPRESSION: SUCCESSFUL PLACEMENT OF A 5 FR DUAL LUMEN 42 CM PICC IN THE LEFT BASILIC VEIN. Venous Doppler Study 05/16/20 00:00 IMPRESSION: NO EVIDENCE DVT OR SVT IN EITHER LEG. Hepatobiliary Scan Nuclear Medicine 05/27/20 08:17 IMPRESSION: Prior cholecystectomy. No evidence of bile leak. Vascular Ultrasound 05/28/20 00:00 IMPRESSION: No evidence of portal vein thrombosis. Abdomen CT 05/29/20 00:00 IMPRESSION: 1. Progressive ascites. No focal drainable abscess. Surgical drain remains in place. 2. Worsening lung aeration. WBC Scan Nuclear Medicine 05/30/20 07:00 IMPRESSION: Diffuse uptake in the chest of uncertain etiology, inflammation versus infection. Chest X-Ray 05/31/20 06:00 IMPRESSION: Diffuse bilateral airspace disease slightly more marked centrally. This could represent vascular congestion or multifocal atypical pneumonia. Abdomen/Pelvis CT 06/02/20 00:00 IMPRESSION: Slight interval increase in abdominal ascites without loculated collection. Subhepatic drain remains in place. No definite residual fluid in the gallbladder fossa. Bilateral pleural effusions, slightly increased on the left, with patchy airspace findings in the lung bases bilaterally. Assessment & Plan - Diagnosis (1) Anemia Qualifiers: Anemia type: iron deficiency Iron deficiency anemia type: unspecified iron deficiency Qualified Code(s): D50.9 - Iron deficiency anemia, unspecified Is this a current diagnosis for this admission?: Yes - Time Critical Time spent with patient: 25-34 minutes Medications reviewed and adjusted accordingly: No Anticipated Discharge Disposition: Tertiary Anticipated Discharge Timeframe: when bed available - Plan Summary Plan Summary: sti exam essentially unchanged total body anasarca ascites wbc again elevated despite antifungals still on iv abx not taking po due to delay in swallowing eval case discussed with Dr Herring will start lasix/albumin. cont iv abx no indication for surgical intervention.
[2020-06-05] MEDS: FLUCONAZOLE 400 MG/NS RTU 400 MG/200 ML RTUPB IV SCH (09:53)
[2020-06-05] MEDS: NORMAL SALINE 10 ML SDV (SCHEDULED) IV SCH ×2 (09:56→22:00)
[2020-06-05] MEDS: ZINC SULFATE 220 MG CAPSULE PO SCH (09:57)
[2020-06-05] MEDS: CHOLECALCIFEROL (D3) 1,000 UNIT (25 MCG) TABLET PO SCH (09:57)
[2020-06-05] MEDS: LIDOCAINE 5% (700 MG) TRANSDERMAL ADH..PATCH TP SCH (09:59)
[2020-06-05] MEDS: FOLIC ACID 1 MG TABLET PO SCH (10:01)
[2020-06-05] MEDS: THIAMINE HCL 200 MG in NORMAL SALINE 50 ML IV SCH ×2 (10:11→23:00)
--- NOTE | 2020-06-05 11:23 | PDOC CRITICAL CARE PROG REPORT ---
General Date:: 06/05/20 Hospital Day:: 6 Resuscitation Status: Full Code Medical Power of Supervisor Wool [employer]: Daughter, Jessica Events in the past 12 to 24 Hours:: WBC count going up. Review of systems relevant to events:: GI, neurologic. Reason for ICU Addmission:: Tenuous neuro status. May be septic from fungemia. - Medications: Medications reviewed and adjusted accordingly: Yes Vasopressors:: None Sedation:: None Physical Exam Vital Signs: Temp Pulse Resp BP Pulse Ox 98.7 F 121 H 19 119/84 97 06/05/20 08:00 06/05/20 10:00 06/05/20 10:00 06/05/20 10:00 06/05/20 10:00 Intake & Output 06/04/20 06/05/20 06/06/20 06:59 06:59 06:59 Intake Total 3934 3302 1102 Output Total 5020 3655 550 Balance -1086 -353 552 Weight 138.6 kg 140.1 kg 140.1 kg Weight/Height Weight 140.1 kg Height 5 ft 8 in General appearance: PRESENT: no acute distress, obese Head exam: PRESENT: atraumatic, normocephalic Eye exam: PRESENT: conjunctiva pink, EOMI, PERRLA. ABSENT: scleral icterus Ear exam: PRESENT: normal external ear exam Mouth exam: PRESENT: other - Better oral hygeine but still poor dentition. Respiratory exam: PRESENT: clear to auscultation winter, decreased breath sounds. ABSENT: rales, rhonchi, wheezes Cardiovascular exam: PRESENT: RRR, tachycardia. ABSENT: diastolic murmur, rubs, systolic murmur GI/Abdominal exam: PRESENT: normal bowel sounds, soft, other - ROSALVA output. ABSENT: distended, guarding, mass, organolmegaly, rebound, tenderness Rectal exam: PRESENT: deferred Gentrourinary exam: PRESENT: indwelling catheter Extremities exam: PRESENT: full ROM. ABSENT: calf tenderness, clubbing, pedal edema Musculoskeletal exam: PRESENT: normal inspection Neurological exam: PRESENT: awake, CN II-XII grossly intact, other - Sedation. Skin exam: PRESENT: dry, intact, warm. ABSENT: cyanosis, rash Tubes/Lines: PRESENT: Endotracheal Tube, Nasogastic Tube Laboratory/Radiographs Laboratory Results: 06/05/20 04:30 06/05/20 04:30 06/05/20 06/05/20 04:30 04:30 WBC 35.1 H* RBC 3.64 L Hgb 9.6 L Hct 29.9 L MCV 82 MCH 26.4 L MCHC 32.1 RDW 22.1 H Plt Count 52 L Sodium 135.3 L Potassium 3.8 Chloride 103 Carbon Dioxide 27 Anion Gap 5 BUN 28 H Creatinine 0.72 Est GFR ( Amer) > 60 Glucose 90 Calcium 8.2 L Phosphorus 3.2 Magnesium 1.5 L Prealbumin 7.5 L Triglycerides 116 05/14/20 05/15/20 15:18 06:45 Troponin I < 0.012 < 0.012 Impressions: Abdomen Ultrasound 05/07/20 04:47 IMPRESSION: 1. Dilation of the common bile duct again identified measuring 1.2 cm. 2. Hepatic steatosis and hepatomegaly. 3. Prior cholecystectomy. PICC Line Insertion 05/14/20 00:00 IMPRESSION: SUCCESSFUL PLACEMENT OF A 5 FR DUAL LUMEN 42 CM PICC IN THE LEFT BASILIC VEIN. Venous Doppler Study 05/16/20 00:00 IMPRESSION: NO EVIDENCE DVT OR SVT IN EITHER LEG. Hepatobiliary Scan Nuclear Medicine 05/27/20 08:17 IMPRESSION: Prior cholecystectomy. No evidence of bile leak. Vascular Ultrasound 05/28/20 00:00 IMPRESSION: No evidence of portal vein thrombosis. Abdomen CT 05/29/20 00:00 IMPRESSION: 1. Progressive ascites. No focal drainable abscess. Surgical drain remains in place. 2. Worsening lung aeration. WBC Scan Nuclear Medicine 05/30/20 07:00 IMPRESSION: Diffuse uptake in the chest of uncertain etiology, inflammation cesar devan infection. Chest X-Ray 05/31/20 06:00 IMPRESSION: Diffuse bilateral airspace disease slightly more marked centrally. This could represent vascular congestion or multifocal atypical pneumonia. Abdomen/Pelvis CT 06/02/20 00:00 IMPRESSION: Slight interval increase in abdominal ascites without loculated collection. Subhepatic drain remains in place. No definite residual fluid in the gallbladder fossa. Bilateral pleural effusions, slightly increased on the left, with patchy airspace findings in the lung bases bilaterally. EKG: Arrest was coarse VF going into fine before cardivarsion restored NSR. All labs, radiographs, diagnostic studies and EKGs were personally reviewed: Yes In addition, reports of radiographic and diagnostic studies were read: Yes Assessment and Plan - Diagnosis (1) Acute metabolic encephalopathy Is this a current diagnosis for this admission?: Yes Plan: Still not fully oriented. I'm not sure how far removed she is from her baseline. (2) Hypoalbuminemia Is this a current diagnosis for this admission?: Yes Plan: Will try albumin and lasix to try and mobilize fluid. (3) Malnutrition compromising bodily function Is this a current diagnosis for this admission?: Yes Plan: Receiving TPN. Doesnt want PO. (4) Anemia Qualifiers: Anemia type: iron deficiency Iron deficiency anemia type: unspecified iron deficiency Qualified Code(s): D50.9 - Iron deficiency anemia, unspecified Is this a current diagnosis for this admission?: Yes Plan: Stable HgB at 9.6. No need to transfuse. (5) Biliary stricture Is this a current diagnosis for this admission?: Yes Plan: Stable (6) Cirrhosis of liver Qualifiers: Hepatic cirrhosis type: unspecified biliary cirrhosis Qualified Code(s): K74.5 - Biliary cirrhosis, unspecified Is this a current diagnosis for this admission?: Yes Plan: Stable (7) Sepsis with acute organ dysfunction and septic shock Qualifiers: Sepsis type: sepsis due to unspecified organism Severe sepsis acute organ dysfunction type: acute renal failure Acute renal failure type: with acute tubular necrosis Qualified Code(s): A41.9 - Sepsis, unspecified organism; R65.21 - Severe sepsis with septic shock; N17.0 - Acute kidney failure with tubular necrosis Is this a current diagnosis for this admission?: Yes Plan: There is a smoldering septic picture. Not shock, not severe but may be related to a non-nba yeast infection. Is on micofungin per ID recomendations. (8) Leukocytosis Is this a current diagnosis for this admission?: Yes Plan: Level of WBC up to 35K. Micafungin started. Plan Summary: Keep in ICU because of worsening leukocytosis and septic fungemia picture. Critical Time Critical Time (minutes): 35 Level of Care: ICU Anticipated discharge: SNF Anticipated DC Timeframe: Other -: 1. The care of a critical patient is a dynamic process. This note is a employee's representative synopsis but static in nature. The timeframe for treatments given in order is not necessarily the actual time these treatments may have been done. 2. This patient requires critical care secondary to ongoing requirements for therapy not offered or safe outside the critical care environment. Transfer to a lower level of care will result in altered life or limb morbidity and mortality. 3. Multidisciplinary rounds completed. 4. ABCDE bundle addressed.
[2020-06-05] MEDS ORDERED: MICAFUNGIN SODIUM INJ/PF 100 MG VIAL IV SCH (11:30)
[2020-06-05] MEDS ORDERED: FUROSEMIDE INJ/PF 40 MG/4 ML SDV IV ONE (12:00)
[2020-06-05] MEDS: ALBUMIN HUMAN 12.5 GM/50 ML RTUINJ IV SCH ×2 (13:26→14:35)
[2020-06-05 14:06] LABS: PATH REVIEW PATHOLOGIST REVIEWED
[2020-06-05] MEDS: MICAFUNGIN SODIUM 100 MG in NORMAL SALINE 100 ML IV SCH (14:35)
[2020-06-05] MEDS: AMINO ACIDS 5 %/DEXTROSE 20 % 1,000 ML IV PRN (14:40)
[2020-06-05] MEDS ORDERED: THIAMINE HCL INJ 200 MG/2 ML VIAL ONE (22:56)
[2020-06-06] MEDS: INSULIN REG, HUMAN 100 UNIT/ML 3 ML VIAL (PYX) SUBCUT SCH ×4 (00:39→17:47)
[2020-06-06] MEDS: HYDROMORPHONE HCL INJ/PF 2 MG/ML AMPULE IV PRN ×2 (02:32→09:16)
[2020-06-06] MEDS: ASCORBIC ACID IV SCH ×4 (04:37→21:05)
[2020-06-06] MEDS: WATER IV SCH ×4 (04:37→21:05)
[2020-06-06] MEDS: DEXTROSE 5% IV SCH ×4 (04:37→21:05)
[2020-06-06 07:01] LABS: HEMATOCRIT 27.2 % (36.0-47.0); HEMOGLOBIN 8.4 g/dL (12.0-15.5); MEAN CORPUSCULAR HEMOGLOBIN 25.9 pg (27.0-33.4); MEAN CORPUSCULAR HGB CONC 31.1 g/dL (32.0-36.0); MEAN CORPUSCULAR VOLUME 83 fl (80-97); RED BLOOD COUNT 3.26 10^6/uL (3.72-5.28)
[2020-06-06 07:13] LABS: ANION GAP 6 (5-19); BLOOD UREA NITROGEN 24 mg/dL (7-20); CALCIUM 8.2 mg/dL (8.4-10.2); CARBON DIOXIDE 28 mmol/L (22-30); CHLORIDE 105 mmol/L (98-107); GLUCOSE 81 mg/dL (75-110); PHOSPHORUS 3.4 mg/dL (2.5-4.5); POTASSIUM 3.7 mmol/L (3.6-5.0)
[2020-06-06 07:21] LABS: PREALBUMIN 6.7 mg/dL (17.6-36.0)
[2020-06-06 08:16] LABS: PLATELET COUNT 52 10^3/uL (150-450)
[2020-06-06 08:24] LABS: WHITE BLOOD COUNT 34.7 10^3/uL (4.0-10.5)
[2020-06-06 08:25] LABS: ABSOLUTE LYMPHOCYTES# (MANUAL) 3.1 10^3/uL (0.5-4.7); BASOPHILS % (MANUAL) 0 % (0-2); EOSINOPHILS % (MANUAL) 1 % (0-6); LYMPHOCYTES % (MANUAL) 9 % (13-45); MONOCYTES % (MANUAL) 3 % (3-13); SEGMENTED NEUTROPHILS % (MAN) 87 % (42-78); TOTAL CELLS COUNTED 100
[2020-06-06 08:27] LABS: ANISOCYTOSIS 3+; HYPOCHROMASIA SLIGHT; POIKILOCYTOSIS SLIGHT; POLYCHROMASIA SLIGHT
[2020-06-06 08:28] LABS: PAPPENHEIMER BODIES PRESENT; PLATELET COMMENT DECREASED; TARGET CELLS 1+; TEAR DROP CELLS SLIGHT
[2020-06-06] MEDS: RINGERS SOLUTION,LACTATED 1,000 ML IV PRN ×2 (09:05→15:38)
[2020-06-06] MEDS: THIAMINE HCL 200 MG in NORMAL SALINE 50 ML IV SCH ×2 (09:12→21:53)
[2020-06-06] MEDS: FAT EMULSIONS 250 ML IV SCH (09:12)
[2020-06-06] MEDS: AMINO ACIDS 5 %/DEXTROSE 20 % 1,000 ML IV PRN (09:13)
[2020-06-06] MEDS: LIDOCAINE 5% (700 MG) TRANSDERMAL ADH..PATCH TP SCH (09:14)
[2020-06-06] MEDS: FOLIC ACID 1 MG TABLET PO SCH (09:14)
[2020-06-06] MEDS: CHOLECALCIFEROL (D3) 1,000 UNIT (25 MCG) TABLET PO SCH (09:15)
[2020-06-06] MEDS: NORMAL SALINE 10 ML SDV (SCHEDULED) IV SCH ×2 (09:15→21:07)
[2020-06-06] MEDS: ZINC SULFATE 220 MG CAPSULE PO SCH (09:15)
[2020-06-06] MEDS: MICAFUNGIN SODIUM 100 MG in NORMAL SALINE 100 ML IV SCH (11:00)
--- NOTE | 2020-06-06 11:32 | PDOC CRITICAL CARE PROG REPORT ---
General Date:: 06/06/20 ICU Day:: 9 Hospital Day:: 30 Resuscitation Status: Full Code Medical Power of Machining Associate: Daughter, Jessica Events in the past 12 to 24 Hours:: No improvement or worsening Review of systems relevant to events:: GI, neurological. Reason for ICU Addmission:: Tenuous neuro status. May be septic from fungemia. - Medications: Medications reviewed and adjusted accordingly: Yes Vasopressors:: None Sedation:: None Physical Exam Vital Signs: Temp Pulse Resp BP Pulse Ox 98.4 F 126 H 20 131/80 H 100 06/06/20 04:00 06/06/20 08:00 06/06/20 08:00 06/06/20 08:00 06/06/20 08:00 Intake & Output 06/05/20 06/06/20 06/07/20 06:59 06:59 06:59 Intake Total 3302 3506 Output Total 3655 4010 250 Balance -353 -504 -250 Weight 140.1 kg 142 kg Weight/Height Weight 142 kg Height 5 ft 8 in General appearance: PRESENT: no acute distress, morbidly obese Head exam: PRESENT: atraumatic, normocephalic Eye exam: PRESENT: conjunctiva pink, EOMI, PERRLA. ABSENT: scleral icterus Ear exam: PRESENT: normal external ear exam Mouth exam: PRESENT: moist, tongue midline Teeth exam: PRESENT: dental caries, poor dentation Respiratory exam: PRESENT: clear to auscultation winter. ABSENT: rales, rhonchi, wheezes Cardiovascular exam: PRESENT: RRR, tachycardia. ABSENT: diastolic murmur, rubs, systolic murmur GI/Abdominal exam: PRESENT: normal bowel sounds, soft, other - ROSALVA with serous fluid.. ABSENT: distended, guarding, mass, organolmegaly, rebound, tenderness Rectal exam: PRESENT: deferred Gentrourinary exam: PRESENT: indwelling catheter Extremities exam: PRESENT: full ROM, other - Anasarca. ABSENT: calf tenderness, clubbing, pedal edema Neurological exam: PRESENT: alert, altered, awake, CN II-XII grossly intact Psychiatric exam: PRESENT: flat affect Skin exam: PRESENT: dry, intact, warm. ABSENT: cyanosis, rash Laboratory/Radiographs Laboratory Results: 06/06/20 06:00 06/06/20 06:00 06/06/20 06/06/20 06:00 06:00 WBC 34.7 H* RBC 3.26 L Hgb 8.4 L Hct 27.2 L MCV 83 MCH 25.9 L MCHC 31.1 L RDW 22.0 H Plt Count 52 L Seg Neutrophils % Not Reportable Sodium 138.5 Potassium 3.7 Chloride 105 Carbon Dioxide 28 Anion Gap 6 BUN 24 H Creatinine 0.58 Est GFR ( Amer) > 60 Glucose 81 Calcium 8.2 L Phosphorus 3.4 Prealbumin 6.7 L 05/14/20 05/15/20 15:18 06:45 Troponin I < 0.012 < 0.012 Impressions: Abdomen Ultrasound 05/07/20 04:47 IMPRESSION: 1. Dilation of the common bile duct again identified measuring 1.2 cm. 2. Hepatic steatosis and hepatomegaly. 3. Prior cholecystectomy. PICC Line Insertion 05/14/20 00:00 IMPRESSION: SUCCESSFUL PLACEMENT OF A 5 FR DUAL LUMEN 42 CM PICC IN THE LEFT BASILIC VEIN. Venous Doppler Study 05/16/20 00:00 IMPRESSION: NO EVIDENCE DVT OR SVT IN EITHER LEG. Hepatobiliary Scan Nuclear Medicine 05/27/20 08:17 IMPRESSION: Prior cholecystectomy. No evidence of bile leak. Vascular Ultrasound 05/28/20 00:00 IMPRESSION: No evidence of portal vein thrombosis. Abdomen CT 05/29/20 00:00 IMPRESSION: 1. Progressive ascites. No focal drainable abscess. Surgical drain remains in place. 2. Worsening lung aeration. WBC Scan Nuclear Medicine 05/30/20 07:00 IMPRESSION: Diffuse uptake in the chest of uncertain etiology, inflammation versus infection. Chest X-Ray 05/31/20 06:00 IMPRESSION: Diffuse bilateral airspace disease slightly more marked centrally. This could represent vascular congestion or multifocal atypical pneumonia. Abdomen/Pelvis CT 06/02/20 00:00 IMPRESSION: Slight interval increase in abdominal ascites without loculated collection. Subhepatic drain remains in place. No definite residual fluid in the gallbladder fossa. Bilateral pleural effusions, slightly increased on the left, with patchy airspace findings in the lung bases bilaterally. All labs, radiographs, diagnostic studies and EKGs were personally reviewed: Yes In addition, reports of radiographic and diagnostic studies were read: Yes Assessment and Plan - Diagnosis (1) Acute metabolic encephalopathy Is this a current diagnosis for this admission?: Yes Plan: She seems to be mostly appropriate but has episodes of confusion at times. (2) Hypoalbuminemia Is this a current diagnosis for this admission?: Yes Plan: Still an issue. Albumin and lasix produced 1800 cc of urine in 48 hours. Will try straight lasix today (3) Malnutrition compromising bodily function Is this a current diagnosis for this admission?: Yes Plan: Still receiving TPN. Has no desire to eat. (4) Anemia Qualifiers: Anemia type: iron deficiency Iron deficiency anemia type: unspecified iron deficiency Qualified Code(s): D50.9 - Iron deficiency anemia, unspecified Is this a current diagnosis for this admission?: Yes Plan: Hgb 8.6 down from 9.4 Repeat labs, no indication to transfuse. (5) Biliary stricture Is this a current diagnosis for this admission?: Yes Plan: Resolved (6) Cirrhosis of liver Qualifiers: Hepatic cirrhosis type: unspecified biliary cirrhosis Qualified Code(s): K74.5 - Biliary cirrhosis, unspecified Is this a current diagnosis for this admission?: Yes (7) Sepsis with acute organ dysfunction and septic shock Qualifiers: Sepsis type: sepsis due to unspecified organism Severe sepsis acute organ dysfunction type: acute renal failure Acute renal failure type: with acute tubular necrosis Qualified Code(s): A41.9 - Sepsis, unspecified organism; R65 .21 - Severe sepsis with septic shock; N17.0 - Acute kidney failure with tubular necrosis Is this a current diagnosis for this admission?: Yes Plan: Again a low grade septic picture probably from nba. continue micafungin (8) Leukocytosis Is this a current diagnosis for this admission?: Yes Plan: Unchanged at 32. Plan Summary: Palliative care consult. She is not getting better and seems to have no desire to get well. Critical Time Critical Time (minutes): 35 Level of Care: ICU Anticipated discharge: Other Anticipated DC Timeframe: Other -: 1. The care of a critical patient is a dynamic process. This note is a arborist representative synopsis but static in nature. The timeframe for treatments given in order is not necessarily the actual time these treatments may have been done. 2. This patient requires critical care secondary to ongoing requirements for therapy not offered or safe outside the critical care environment. Transfer to a lower level of care will result in altered life or limb morbidity and mortality. 3. Multidisciplinary rounds completed. 4. ABCDE bundle addressed.
[2020-06-06] MEDS: HEPARIN SOD (PORCINE) 5,000 UNIT/ML 1 ML VIAL SUBCUT SCH ×3 (13:00→21:06)
--- NOTE | 2020-06-06 13:30 | PDOC CRITICAL CARE PROG REPORT ---
General Date:: 06/06/20 ICU Day:: 10 Hospital Day:: 31 Resuscitation Status: Full Code Medical Power of Veterinary Science Teacher: DaughterJessica Events in the past 12 to 24 Hours:: Continues to require ICU monitoring due to high risk for decompensation. Patient continues to show little interest in her care. Per staff she just wants to lie there and not participate in moving herself or attempting to consume PO nutrition. No improvement or worsening Review of systems relevant to events:: Patient denies any nausea at this time denies any abdominal pain. I asked if she felt as if she could eat and she declines. Patient denies any chest pain or shortness of breath. GI, neurological. Reason for ICU Addmission:: Tenuous neuro status. May be septic from fungemia. - Medications: Medications reviewed and adjusted accordingly: Yes Vasopressors:: No pressors None Physical Exam Vital Signs: Temp Pulse Resp BP Pulse Ox 98.4 F 126 H 15 143/93 H 97 06/06/20 04:00 06/06/20 08:00 06/06/20 11:01 06/06/20 11:00 06/06/20 10:01 Intake & Output 06/05/20 06/06/20 06/07/20 06:59 06:59 06:59 Intake Total 3302 3506 Output Total 3655 4010 250 Balance -353 -504 -250 Weight 140.1 kg 142 kg Weight/Height Weight 142 kg Height 5 ft 8 in General appearance: PRESENT: no acute distress, morbidly obese, well-developed. ABSENT: disheveled, hard of hearing, mild distress, obese, severe distress, thin, well-nourished Head exam: PRESENT: atraumatic, normocephalic Eye exam: PRESENT: conjunctiva pink, EOMI, PERRLA. ABSENT: scleral icterus Ear exam: PRESENT: normal external ear exam Mouth exam: PRESENT: dry mucosa, neck supple, tongue midline, other. ABSENT: moist Neck exam: ABSENT: carotid bruit, JVD, lymphadenopathy, meningismus, thyromegaly, tracheal deviation, tracheostomy Respiratory exam: PRESENT: clear to auscultation winter, decreased breath sounds, symmetrical. ABSENT: accessory muscle use, crackles, prolonged expiratory phas, rales, retraction, rhonchi, stridor, tachypnea, wheezes Cardiovascular exam: PRESENT: RRR, +S1, +S2, tachycardia, other - pitting edema extremities. ABSENT: bradycardia, clicks, diastolic murmur, gallop, irregular rhythm, rubs, systolic murmur Pulses: PRESENT: normal carotid pulses, normal radial pulses, normal dorsalis pedis pul. ABSENT: normal femoral pulses, +1 pedal pulses bilateral, +2 pedal pulses bilateral Vascular exam: PRESENT: normal capillary refill GI/Abdominal exam: PRESENT: diminished bowel sounds, hypoactive bowel sounds, soft, tenderness. ABSENT: distended, firm, guarding, hernia, hyperactive bowel sounds, mass, Ratliff's sign, normal bowel sounds, organolmegaly, rebound, rigid Rectal exam: PRESENT: deferred Extremities exam: PRESENT: full ROM, pedal edema, other - pitting edema all extremities. ABSENT: calf tenderness, clubbing Musculoskeletal exam: PRESENT: full ROM Neurological exam: PRESENT: alert, awake, oriented to person, oriented to place, oriented to time, oriented to situation, CN II-XII grossly intact. ABSENT: reflexes normal, abnormal gait, motor sensory deficit, normal gait, aphasic Psychiatric exam: PRESENT: flat affect, normal mood. ABSENT: agitated, anxious, appropriate affect, depressed, homicidal ideation, suicidal ideation Skin exam: PRESENT: dry, intact, warm. ABSENT: cyanosis, rash Laboratory/Radiographs Laboratory Results: 06/06/20 06:00 06/06/20 06:00 06/06/20 06/06/20 06:00 06:00 WBC 34.7 H* RBC 3.26 L Hgb 8.4 L Hct 27.2 L MCV 83 MCH 25.9 L MCHC 31.1 L RDW 22.0 H Plt Count 52 L Seg Neutrophils % Not Reportable Sodium 138.5 Potassium 3.7 Chloride 105 Carbon Dioxide 28 Anion Gap 6 BUN 24 H Creatinine 0.58 Est GFR ( Amer) > 60 Glucose 81 Calcium 8.2 L Phosphorus 3.4 Prealbumin 6.7 L 05/14/20 05/15/20 15:18 06:45 Troponin I < 0.012 < 0.012 Impressions: Abdomen Ultrasound 05/07/20 04:47 IMPRESSION: 1. Dilation of the common bile duct again identified measuring 1.2 cm. 2. Hepatic steatosis and hepatomegaly. 3. Prior cholecystectomy. PICC Line Insertion 05/14/20 00:00 IMPRESSION: SUCCESSFUL PLACEMENT OF A 5 FR DUAL LUMEN 42 CM PICC IN THE LEFT BASILIC VEIN. Venous Doppler Study 05/16/20 00:00 IMPRESSION: NO EVIDENCE DVT OR SVT IN EITHER LEG. Hepatobiliary Scan Nuclear Medicine 05/27/20 08:17 IMPRESSION: Prior cholecystectomy. No evidence of bile leak. Vascular Ultrasound 05/28/20 00:00 IMPRESSION: No evidence of portal vein thrombosis. Abdomen CT 05/29/20 00:00 IMPRESSION: 1. Progressive ascites. No focal drainable abscess. Surgical drain remains in place. 2. Worsening lung aeration. WBC Scan Nuclear Medicine 05/30/20 07:00 IMPRESSION: Diffuse uptake in the chest of uncertain etiology, inflammation versus infection. Chest X-Ray 05/31/20 06:00 IMPRESSION: Diffuse bilateral airspace disease slightly more marked centrally. This could represent vascular congestion or multifocal atypical pneumonia. Abdomen/Pelvis CT 06/02/20 00:00 IMPRESSION: Slight interval increase in abdominal ascites without loculated collection. Subhepatic drain remains in place. No definite residual fluid in the gallbladder fossa. Bilateral pleural effusions, slightly increased on the left, with patchy airs pace findings in the lung bases bilaterally. All labs, radiographs, diagnostic studies and EKGs were personally reviewed: Yes In addition, reports of radiographic and diagnostic studies were read: Yes Assessment and Plan Plan Summary: Continue to monitor in ICU will replace magnesium today repeat level in AM. Will replace ALbumin with a total of 50 grams. Continue to offer support to encourage patient to be active in her care. Continue to encourage her to take PO nutrition. Trend WBC continue current antibiotic regimen appreciate ID 's help. Trend WBC. Palliative care consult. She is not getting better and seems to have no desire to get well. Critical Time Critical Time (minutes): 55 Level of Care: ICU Anticipated discharge: SNF -: 1. The care of a critical patient is a dynamic process. This note is a residential sales representative synopsis but static in nature. The timeframe for treatments given in order is not necessarily the actual time these treatments may have been done. 2. This patient requires critical care secondary to ongoing requirements for therapy not offered or safe outside the critical care environment. Transfer to a lower level of care will result in altered life or limb morbidity and mortality. 3. Multidisciplinary rounds completed. 4. ABCDE bundle addressed.
[2020-06-06] MEDS: ALBUMIN HUMAN 12.5 GM/50 ML RTUINJ IV SCH ×4 (14:15→17:47)
[2020-06-06] MEDS ORDERED: 1/2 NORMAL SALINE 500 ML IV PRN (14:40)
[2020-06-06] MEDS: MAGNESIUM SULFATE/D5W 1 GM/100 ML RTUPB IV SCH ×3 (14:43→16:57)
[2020-06-06] MEDS ORDERED: BUMETANIDE INJ/PF 1 MG/4 ML SDV IV STA (14:45)
--- NOTE | 2020-06-06 14:57 | PDOC PROGRESS REPORT ---
Subjective Progress Note for:: 06/06/20 Subjective:: awake, no improvement or worsenening Reason For Visit: BILIARY OBSTRUCTION S/P SURGERY Physical Exam Vital Signs: Temp Pulse Resp BP Pulse Ox 98.4 F 126 H 15 144/87 H 97 06/06/20 04:00 06/06/20 08:00 06/06/20 14:01 06/06/20 14:01 06/06/20 10:01 Intake & Output 06/05/20 06/06/20 06/07/20 06:59 06:59 06:59 Intake Total 3302 3506 Output Total 3657 401 650 Balance -353 -504 -650 Weight 140.1 kg 142 kg General appearance: PRESENT: no acute distress Head exam: PRESENT: normocephalic Eye exam: PRESENT: EOMI Ear exam: PRESENT: normal external ear exam Mouth exam: PRESENT: dry mucosa Teeth exam: PRESENT: edentulous, poor dentation Neck exam: PRESENT: full ROM Respiratory exam: PRESENT: clear to auscultation winter Cardiovascular exam: PRESENT: RRR Pulses: PRESENT: normal radial pulses, normal femoral pulses Breast: PRESENT: Normal GI/Abdominal exam: PRESENT: soft, other - deisy serous acites. Rectal exam: PRESENT: deferred Gentrourinary exam: PRESENT: indwelling catheter Extremities exam: PRESENT: other - 4+ edema Musculoskeletal exam: PRESENT: other - non ambulatory at this time swelling and lack of interest or desire to improve Neurological exam: PRESENT: awake Psychiatric exam: PRESENT: appropriate affect, depressed, flat affect Skin exam: PRESENT: dry Results Laboratory Results: 06/06/20 06:00 06/06/20 06:00 06/06/20 06/06/20 06/06/20 06:00 06:00 13:40 WBC 34.7 H* RBC 3.26 L Hgb 8.4 L Hct 27.2 L MCV 83 MCH 25.9 L MCHC 31.1 L RDW 22.0 H Plt Count 52 L Seg Neutrophils % Not Reportable Sodium 138.5 Potassium 3.7 Chloride 105 Carbon Dioxide 28 Anion Gap 6 BUN 24 H Creatinine 0.58 Est GFR ( Amer) > 60 Glucose 81 Calcium 8.2 L Phosphorus 3.4 Magnesium 1.2 L* Prealbumin 6.7 L 05/14/20 05/15/20 15:18 06:45 Troponin I < 0.012 < 0.012 Impressions: Abdomen Ultrasound 05/07/20 04:47 IMPRESSION: 1. Dilation of the common bile duct again identified measuring 1.2 cm. 2. Hepatic steatosis and hepatomegaly. 3. Prior cholecystectomy. PICC Line Insertion 05/14/20 00:00 IMPRESSION: SUCCESSFUL PLACEMENT OF A 5 FR DUAL LUMEN 42 CM PICC IN THE LEFT BASILIC VEIN. Venous Doppler Study 05/16/20 00:00 IMPRESSION: NO EVIDENCE DVT OR SVT IN EITHER LEG. Hepatobiliary Scan Nuclear Medicine 05/27/20 08:17 IMPRESSION: Prior cholecystectomy. No evidence of bile leak. Vascular Ultrasound 05/28/20 00:00 IMPRESSION: No evidence of portal vein thrombosis. Abdomen CT 05/29/20 00:00 IMPRESSION: 1. Progressive ascites. No focal drainable abscess. Surgical drain remains in place. 2. Worsening lung aeration. WBC Scan Nuclear Medicine 05/30/20 07:00 IMPRESSION: Diffuse uptake in the chest of uncertain etiology, inflammation versus infection. Chest X-Ray 05/31/20 06:00 IMPRESSION: Diffuse bilateral airspace disease slightly more marked centrally. This could represent vascular congestion or multifocal atypical pneumonia. Abdomen/Pelvis CT 06/02/20 00:00 IMPRESSION: Slight interval increase in abdominal ascites without loculated collection. Subhepatic drain remains in place. No definite residual fluid in the gallbladder fossa. Bilateral pleural effusions, slightly increased on the left, with patchy airspace findings in the lung bases bilaterally. Assessment & Plan - Diagnosis (1) Anemia Qualifiers: Anemia type: iron deficiency Iron deficiency anemia type: unspecified iron deficiency Qualified Code(s): D50.9 - Iron deficiency anemia, unspecified Is this a current diagnosis for this admission?: Yes - Time Time Spent: 30 to 50 Minutes Critical Time spent with patient: 25-34 minutes Anticipated Discharge Disposition: [facility] Facility Anticipated Discharge Timeframe: when bed available - Plan Summary Plan Summary: pt continures to deterioriate poor nutritional status pt does not appear to have any motiviation to improve will plan on medical rx for now no indication for surgerical intervention
[2020-06-06] MEDS ORDERED: METOPROLOL TARTRATE PF/INJ 5 MG/5 ML SDV IV ONE (21:15)
[2020-06-07] MEDS: AMINO ACIDS 5 %/DEXTROSE 20 % 1,000 ML IV PRN ×2 (00:30→15:28)
[2020-06-07] MEDS: INSULIN REG, HUMAN 100 UNIT/ML 3 ML VIAL (PYX) SUBCUT SCH ×5 (00:30→23:46)
[2020-06-07] MEDS: WATER IV SCH ×4 (03:02→21:44)
[2020-06-07] MEDS: DEXTROSE 5% IV SCH ×4 (03:02→21:44)
[2020-06-07] MEDS: ASCORBIC ACID IV SCH ×4 (03:02→21:44)
[2020-06-07 05:25] LABS: HEMATOCRIT 25.5 % (36.0-47.0); HEMOGLOBIN 8.1 g/dL (12.0-15.5); MEAN CORPUSCULAR HEMOGLOBIN 26.3 pg (27.0-33.4); MEAN CORPUSCULAR HGB CONC 31.8 g/dL (32.0-36.0); MEAN CORPUSCULAR VOLUME 83 fl (80-97); RED BLOOD COUNT 3.08 10^6/uL (3.72-5.28); RED CELL DISTRIBUTION WIDTH 22.3 % (11.5-14.0)
[2020-06-07 05:37] LABS: ALBUMIN 2.2 g/dL (3.5-5.0); ALKALINE PHOSPHATASE 117 U/L (38-126); ANION GAP 8 (5-19); ASPARTATE AMINO TRANSFERASE 78 U/L (14-36); BILIRUBIN,DIRECT 3.2 mg/dL (0.0-0.4); BILIRUBIN,TOTAL 5.2 mg/dL (0.2-1.3); BLOOD UREA NITROGEN 22 mg/dL (7-20); CALCIUM 8.3 mg/dL (8.4-10.2); CARBON DIOXIDE 28 mmol/L (22-30); CHLORIDE 104 mmol/L (98-107); GLUCOSE 104 mg/dL (75-110); TOTAL PROTEIN 5.2 g/dL (6.3-8.2)
[2020-06-07 05:48] LABS: PLATELET COUNT 57 10^3/uL (150-450); POTASSIUM 3.2 mmol/L (3.6-5.0); WHITE BLOOD COUNT 39.8 10^3/uL (4.0-10.5)
[2020-06-07] MEDS: HEPARIN SOD (PORCINE) 5,000 UNIT/ML 1 ML VIAL SUBCUT SCH ×3 (06:23→21:17)
[2020-06-07] MEDS: RINGERS SOLUTION,LACTATED 1,000 ML IV PRN (06:24)
[2020-06-07] MEDS: MAGNESIUM SULFATE/D5W 1 GM/100 ML RTUPB IV SCH ×2 (06:24→07:35)
[2020-06-07] MEDS ORDERED: POTASSI CL 20 MEQ/50 ML RIDER 20 MEQ/50 ML RTUPB IV SCH ×2 (07:00→08:09)
[2020-06-07] MEDS ORDERED: MAGNESIUM SULFATE/D5W 1 GM/100 ML RTUPB IV SCH (08:15)
[2020-06-07] MEDS: ALBUMIN HUMAN 12.5 GM/50 ML RTUINJ IV SCH ×4 (09:00→15:34)
[2020-06-07] MEDS: FOLIC ACID 1 MG TABLET PO SCH (09:00)
[2020-06-07] MEDS: ZINC SULFATE 220 MG CAPSULE PO SCH (09:01)
[2020-06-07] MEDS: CHOLECALCIFEROL (D3) 1,000 UNIT (25 MCG) TABLET PO SCH (09:01)
--- NOTE | 2020-06-07 09:02 | PDOC CRITICAL CARE PROG REPORT ---
General Date:: 06/07/20 ICU Day:: 31 Resuscitation Status: Full Code Medical Power of Fashion Artist: DaughterJessica Events in the past 12 to 24 Hours:: Pt continues to have no significant improvement or decline. Continues with flat affect and no interest in participating in her care. The patient continues to be tachycardic VSS and no respiratory distress. Review of systems relevant to events:: Patient state she feels bad this morning however she denies any chest pain or increased shortness of breath. She does complain of abdominal pain when palpated. Reason for ICU Addmission:: Tenuous neuro status. May be septic from fungemia. - Medications: Medications reviewed and adjusted accordingly: Yes Vasopressors:: none Physical Exam Vital Signs: Temp Pulse Resp BP Pulse Ox 97.9 F 120 H 23 H 130/93 H 96 06/07/20 03:56 06/07/20 05:42 06/07/20 06:01 06/07/20 06:00 06/07/20 01:28 Intake & Output 06/06/20 06/07/20 06/08/20 06:59 06:59 06:59 Intake Total 3506 2854 Output Total 4010 4450 Balance -504 -1596 Weight 142 kg 139.1 kg Weight/Height Weight 139.1 kg Height 5 ft 8 in General appearance: PRESENT: no acute distress, cooperative, morbidly obese Head exam: PRESENT: atraumatic, normocephalic Eye exam: PRESENT: conjunctiva pale, PERRLA Ear exam: PRESENT: normal external ear exam Mouth exam: PRESENT: dry mucosa, neck supple Teeth exam: PRESENT: poor dentation Neck exam: PRESENT: full ROM. ABSENT: JVD, lymphadenopathy Respiratory exam: PRESENT: clear to auscultation winter, decreased breath sounds Cardiovascular exam: PRESENT: +S1, +S2, tachycardia, other - pitting edema lower extremities Pulses: PRESENT: normal radial pulses, +2 pedal pulses bilateral Vascular exam: PRESENT: normal capillary refill GI/Abdominal exam: PRESENT: ascites, distended, firm, hypoactive bowel sounds, tenderness, other - ROSALVA drain remains in place serous drainage present weeping noted from abdominal Rectal exam: PRESENT: deferred Gentrourinary exam: PRESENT: indwelling catheter, other - urine dark in color Extremities exam: PRESENT: other - 4 plus edema lower extremities Musculoskeletal exam: PRESENT: tenderness Neurological exam: PRESENT: alert, oriented to person, oriented to place, oriented to situation Psychiatric exam: PRESENT: flat affect Skin exam: PRESENT: warm, other - weeping from edema abdominal area midline abdominal incision approximated with adamaris in place Tubes/Lines: PRESENT: Other - left upper arm PICC Laboratory/Radiographs Laboratory Results: 06/07/20 05:07 06/07/20 05:07 06/06/20 06/07/20 06/07/20 13:40 05:07 05:07 WBC 39.8 H* RBC 3.08 L Hgb 8.1 L Hct 25.5 L MCV 83 MCH 26.3 L MCHC 31.8 L RDW 22.3 H Plt Count 57 L Sodium 139.7 Potassium 3.2 L Chloride 104 Carbon Dioxide 28 Anion Gap 8 BUN 22 H Creatinine 0.49 L Est GFR ( Amer) > 60 Glucose 104 Calcium 8.3 L Magnesium 1.2 L* 1.6 Total Bilirubin 5.2 H AST 78 H Alkaline Phosphatase 117 Total Protein 5.2 L Albumin 2.2 L 05/14/20 05/15/20 06/07/20 15:18 06:45 05:07 Troponin I < 0.012 < 0.012 NT-Pro-B Natriuret Pep 2990 H Impressions: Abdomen Ultrasound 05/07/20 04:47 IMPRESSION: 1. Dilation of the common bile duct again identified measuring 1.2 cm. 2. Hepatic steatosis and hepatomegaly. 3. Prior cholecystectomy. PICC Line Insertion 05/14/20 00:00 IMPRESSION: SUCCESSFUL PLACEMENT OF A 5 FR DUAL LUMEN 42 CM PICC IN THE LEFT BASILIC VEIN. Venous Doppler Study 05/16/20 00:00 IMPRESSION: NO EVIDENCE DVT OR SVT IN EITHER LEG. Hepatobiliary Scan Nuclear Medicine 05/27/20 08:17 IMPRESSION: Prior cholecystectomy. No evidence of bile leak. Vascular Ultrasound 05/28/20 00:00 IMPRESSION: No evidence of portal vein thrombosis. Abdomen CT 05/29/20 00:00 IMPRESSION: 1. Progressive ascites. No focal drainable abscess. Surgical drain remains in place. 2. Worsening lung aeration. WBC Scan Nuclear Medicine 05/30/20 07:00 IMPRESSION: Diffuse uptake in the chest of uncertain etiology, inflammation versus infection. Chest X-Ray 05/31/20 06:00 IMPRESSION: Diffuse bilateral airspace disease slightly more marked centrally. This could represent vascular congestion or multifocal atypical pneumonia. Abdomen/Pelvis CT 06/02/20 00:00 IMPRESSION: Slight interval increase in abdominal ascites without loculated collection. Subhepatic drain remains in place. No definite residual fluid in the gallbladder fossa. Bilateral pleural effusions, slightly increased on the left, with patchy airspace findings in the lung bases bilaterally. All labs, radiographs, diagnostic studies and EKGs were personally reviewed: Yes In addition, reports of radiographic and diagnostic studies were read: Yes Assessment and Plan - Diagnosis (1) Acute postoperative pain of abdomen Is this a current diagnosis for this admission?: Yes Plan Summary: Will initiate patient on rocephin 2 grams IV daily and start on linzeloid IV for treatment of VRE found in urine and ECOLI found in abdominal draiange. Will have echo done today to evaluate EF and look for possible vegetation. Repeat cbc in AM and trend WBC. Albumin remains low will give 50 gram IV today. Electrolytes replaced. Will recheck in AM. Tachycardia most likely due to intravascular dehydration will continue current IVF and admin albumin and continue to evaluate tachycardia. Critical Time Critical Time (minutes): 55 Level of Care: ICU Anticipated discharge: SNF -: 1. The care of a critical patient is a dynamic process. This note is a customer engagement representative synopsis but static in nature. The timeframe for treatments given in order is not necessarily the actual time these treatments may have been done. 2. This patient requires critical care secondary to ongoing requirements for therapy not offered or safe outside the critical care environment. Transfer to a lower level of care will result in altered life or limb morbidity and mortality. 3. Multidisciplinary rounds completed. 4. ABCDE bundle addressed.
[2020-06-07] MEDS: NORMAL SALINE 10 ML SDV (SCHEDULED) IV SCH ×2 (09:07→21:50)
[2020-06-07] MEDS: THIAMINE HCL 200 MG in NORMAL SALINE 50 ML IV SCH ×2 (09:11→22:52)
[2020-06-07] MEDS: CEFTRIAXONE 2 GM/D5W RTU 2 GM/50 ML RTUPB IV SCH (10:28)
[2020-06-07] MEDS: LINEZOLID 600 MG/300 ML RTUPB IV SCH ×2 (10:29→22:53)
[2020-06-07] MEDS: METOPROLOL TARTRATE PF/INJ 5 MG/5 ML SDV IV PRN ×2 (10:47→15:29)
--- NOTE | 2020-06-07 11:26 | Progress Note ---
Provider Note Provider Note: Patient seen this AM with Kilo Veronica. Pt has no desire to eat. Gut is functional. Will place NG for feeding and phase out TPN. WBC count is concerning. CDif culture and blood culture from PICC pending.
[2020-06-07] MEDS ORDERED: PHARMACY COMMUNICATION ORDER MC NR (11:30)
[2020-06-07] MEDS: LIDOCAINE 5% (700 MG) TRANSDERMAL ADH..PATCH TP SCH (12:19)
[2020-06-07] MEDS: MICAFUNGIN SODIUM 100 MG in NORMAL SALINE 100 ML IV SCH (12:20)
[2020-06-07 15:06] LABS: C DIFFICILE GDH NEGATIVE (NEGATIVE)
--- NOTE | 2020-06-07 21:42 | XCELERA REPORT ---
[address] [address] Transthoracic Echocardiogram Report Name: ZACK WYLIE Age: 49 yrs Gender: Female : 1970 Patient Status: Inpatient Patient Location: ICU^610^A Study Date: 06/07/2020 11:05 AM Height: 68 in Weight: 306 lb BSA: 2.4 m2 Procedure: A two-dimensional transthoracic echocardiogram with color flow and Doppler was performed. The study was technically difficult with many images being suboptimal in quality. Reason For Study: CHF / Valular Vegetation History: CHF / Valular Vegetation. Ordering Physician: YASSINE GOMEZ Performed By: Qasim Gutierrez Interpretation Summary The left ventricle is normal in size. There is normal left ventricular wall thickness. Left ventricular systolic function is normal. LV EF is > julio cesar 60% Doppler measurements suggest impaired left ventricular relaxation, which is associated with grade I/IV or mild diastolic dysfunction The left ventricular wall motion is normal. There is no thrombus. cannot assess ASD,VSD,or PFO. The right ventricle is not well visualized secondary to technical limitations The right atrium is normal. The left atrial size is normal. There is no evidence of mitral valve prolapse. There is no vegetation seen on the mitral valve. There is no mitral valve stenosis. There is a mild amount of mitral regurgitation There is no aortic valvular vegetation. There is no aortic valve stenosis There is no LVOT obstruction. No aortic regurgitation is present. There is no tricuspid stenosis. There is a mild amount of tricuspid regurgitation There is moderate pulmonary hypertension by echo RVSP is 54 to 59 mm of Hg , with RA mean of 10 to 15. There is no pulmonic valvular stenosis. There is no pulmonic valvular regurgitation. The aortic root is normal size. The inferior vena cava appeared normal and decreased < 50% with respiration (RAP 10-15 mmHg) There is no pericardial effusion. MMode/2D Measurements & Calculations RVDd: 2.8 cm LVIDd: 5.3 cm FS: 29.1 % Ao root diam: 2.9 cm IVSd: 0.90 cm LVIDs: 3.7 cm EDV(Teich): 132.5 ml Ao root area: 6.7 cm2 LVPWd: 0.86 cm ESV(Teich): 59.1 ml LA dimension: 3.5 cm EF(Teich): 55.4 % Doppler Measurements & Calculations MV E max kamari: MV P1/2t max kamari: Ao V2 max: LV V1 max P.9 cm/sec 137.0 cm/sec 167.6 cm/sec 7.2 mmHg MV P1/2t: 44.9 msec Ao max PG: LV V1 max: MVA(P1/2t): 4.9 cm2 11.2 mmHg 134.4 cm/sec MV dec slope: LV dP/dt: 9088 mmHg/s 894.2 cm/sec2 MV dec time: 0.13 sec PA V2 max: TR max kamari: MV P1/2t-pr_phl: 133.3 cm/sec 329.0 cm/sec 44.9 msec PA max P.1 mmHgTR max P.3 mmHg Left Ventricle The left ventricle is normal in size. There is normal left ventricular wall thickness. Left ventricular systolic function is normal. LV EF is > julio cesar 60%. Doppler measurements suggest impaired left ventricular relaxation, which is associated with grade I/IV or mild diastolic dysfunction. The left ventricular wall motion is normal. There is no thrombus. cannot assess ASD,VSD,or PFO. Right Ventricle The right ventricle is not well visualized secondary to technical limitations. Atria The right atrium is normal. The left atrial size is normal. Mitral Valve There is no evidence of mitral valve prolapse. There is no vegetation seen on the mitral valve. There is no mitral valve stenosis. There is a mild amount of mitral regurgitation. Aortic Valve There is no aortic valvular vegetation. There is no aortic valve stenosis. There is no LVOT obstruction. No aortic regurgitation is present. Tricuspid Valve There is no tricuspid valve vegetation. There is no tricuspid stenosis. There is a mild amount of tricuspid regurgitation. There is moderate pulmonary hypertension by echo. RVSP is 54 to 59 mm of Hg , with RA mean of 10 to 15. Pulmonic Valve There is no pulmonic valvular stenosis. There is no pulmonic valvular regurgitation. Great Vessels The aortic root is normal size. The inferior vena cava appeared normal and decreased < 50% with respiration (RAP 10-15 mmHg). Effusions There is no pericardial effusion. : YASSINE GOMEZ Lakshmi
[2020-06-08 00:24] LABS: ANION GAP 5 (5-19); BLOOD UREA NITROGEN 17 mg/dL (7-20); CALCIUM 7.9 mg/dL (8.4-10.2); CARBON DIOXIDE 28 mmol/L (22-30); CHLORIDE 109 mmol/L (98-107); GLUCOSE 92 mg/dL (75-110)
[2020-06-08 00:27] LABS: POTASSIUM 2.9 mmol/L (3.6-5.0)
[2020-06-08] MEDS: POTASSI CL 20 MEQ/50 ML RIDER 20 MEQ/50 ML RTUPB IV SCH ×2 (00:45→02:45)
[2020-06-08 02:00] LABS: HEMATOCRIT 24.5 % (36.0-47.0); MEAN CORPUSCULAR HEMOGLOBIN 26.3 pg (27.0-33.4); MEAN CORPUSCULAR HGB CONC 31.3 g/dL (32.0-36.0); MEAN CORPUSCULAR VOLUME 84 fl (80-97); RED BLOOD COUNT 2.92 10^6/uL (3.72-5.28); RED CELL DISTRIBUTION WIDTH 22.5 % (11.5-14.0)
[2020-06-08 02:19] LABS: PLATELET COUNT 68 10^3/uL (150-450)
[2020-06-08 02:25] LABS: HEMOGLOBIN 7.7 g/dL (12.0-15.5)
[2020-06-08] MEDS: DEXTROSE 5% IV SCH ×4 (02:45→21:33)
[2020-06-08] MEDS: WATER IV SCH ×4 (02:45→21:33)
[2020-06-08] MEDS: ASCORBIC ACID IV SCH ×4 (02:45→21:33)
[2020-06-08] MEDS: MAGNESIUM SULFATE 1 GM/D5W 100 ML IV SCH ×2 (02:47→04:11)
[2020-06-08] MEDS: RINGERS SOLUTION,LACTATED 1,000 ML IV PRN ×2 (02:57→21:30)
[2020-06-08] MEDS: AMINO ACIDS 5 %/DEXTROSE 20 % 1,000 ML IV PRN (05:30)
[2020-06-08] MEDS: INSULIN REG, HUMAN 100 UNIT/ML 3 ML VIAL (PYX) SUBCUT SCH ×3 (05:41→18:40)
[2020-06-08] MEDS: HEPARIN SOD (PORCINE) 5,000 UNIT/ML 1 ML VIAL SUBCUT SCH ×3 (05:42→21:34)
[2020-06-08 06:02] LABS: HEMATOCRIT 22.5 % (36.0-47.0); MEAN CORPUSCULAR HEMOGLOBIN 25.8 pg (27.0-33.4); MEAN CORPUSCULAR HGB CONC 30.8 g/dL (32.0-36.0); MEAN CORPUSCULAR VOLUME 84 fl (80-97); RED BLOOD COUNT 2.68 10^6/uL (3.72-5.28); RED CELL DISTRIBUTION WIDTH 22.5 % (11.5-14.0)
[2020-06-08 06:16] LABS: ALBUMIN 2.2 g/dL (3.5-5.0); ALKALINE PHOSPHATASE 107 U/L (38-126); ANION GAP 6 (5-19); ASPARTATE AMINO TRANSFERASE 66 U/L (14-36); BILIRUBIN,DIRECT 3.1 mg/dL (0.0-0.4); BILIRUBIN,TOTAL 4.8 mg/dL (0.2-1.3); BLOOD UREA NITROGEN 17 mg/dL (7-20); CALCIUM 8.3 mg/dL (8.4-10.2); CARBON DIOXIDE 28 mmol/L (22-30); CHLORIDE 104 mmol/L (98-107); GLUCOSE 109 mg/dL (75-110); PHOSPHORUS 2.6 mg/dL (2.5-4.5); POTASSIUM 3.6 mmol/L (3.6-5.0); TOTAL PROTEIN 5.1 g/dL (6.3-8.2)
[2020-06-08 07:09] LABS: PLATELET COUNT 63 10^3/uL (150-450)
[2020-06-08 07:15] LABS: ABSOLUTE LYMPHOCYTES# (MANUAL) 0.7 10^3/uL (0.5-4.7); ABSOLUTE MONOCYTES # (MANUAL) 0.7 10^3/uL (0.1-1.4); BASOPHILS % (MANUAL) 0 % (0-2); EOSINOPHILS % (MANUAL) 1 % (0-6); LYMPHOCYTES % (MANUAL) 2 % (13-45); MONOCYTES % (MANUAL) 2 % (3-13); SEGMENTED NEUTROPHILS % (MAN) 95 % (42-78); TOTAL CELLS COUNTED 100
[2020-06-08 07:16] LABS: ANISOCYTOSIS 3+; PLATELET COMMENT DECREASED; TARGET CELLS 1+
[2020-06-08 07:17] LABS: HYPOCHROMASIA SLIGHT
[2020-06-08 07:18] LABS: POLYCHROMASIA SLIGHT
[2020-06-08 07:19] LABS: OVALOCYTES SLIGHT
[2020-06-08 07:22] LABS: HYPERSEGMENTED NEUTROPHILS PRESENT
[2020-06-08 07:23] LABS: TEAR DROP CELLS SLIGHT
[2020-06-08 07:26] LABS: HEMOGLOBIN 6.9 g/dL (12.0-15.5); WHITE BLOOD COUNT 35.2 10^3/uL (4.0-10.5)
--- NOTE | 2020-06-08 09:23 | PDOC PROGRESS REPORT ---
Subjective Progress Note for:: 06/08/20 Subjective:: essentially unchanged, althought she says she feels a bit better Reason For Visit: BILIARY OBSTRUCTION S/P SURGERY Physical Exam Vital Signs: Temp Pulse Resp BP Pulse Ox 97.8 F 117 H 26 H 120/88 H 100 06/08/20 03:37 06/07/20 20:00 06/08/20 06:01 06/08/20 06:01 06/08/20 04:00 Intake & Output 06/07/20 06/08/20 06/09/20 06:59 06:59 06:59 Intake Total 2854 2464 Output Total 4453 8830 Balance -6320 -381 Weight 139.1 kg 140.8 kg General appearance: PRESENT: no acute distress Head exam: PRESENT: normocephalic Eye exam: PRESENT: EOMI Ear exam: PRESENT: normal external ear exam Mouth exam: PRESENT: dry mucosa Teeth exam: PRESENT: edentulous, poor dentation Neck exam: PRESENT: full ROM Respiratory exam: PRESENT: clear to auscultation winter Cardiovascular exam: PRESENT: RRR, tachycardia Pulses: PRESENT: normal femoral pulses, normal dorsalis pedis pul Vascular exam: PRESENT: normal capillary refill Breast: PRESENT: Normal GI/Abdominal exam: PRESENT: soft, other - deisy drain serous Rectal exam: PRESENT: deferred Extremities exam: PRESENT: +2 edema Musculoskeletal exam: PRESENT: normal inspection Neurological exam: PRESENT: alert, awake Skin exam: PRESENT: dry Results Laboratory Results: 06/08/20 05:28 06/08/20 05:28 06/07/20 06/07/20 06/07/20 09:25 23:28 23:28 WBC RBC Hgb Hct MCV MCH MCHC RDW Plt Count Seg Neutrophils % Sodium 142.4 Potassium 2.9 L* Chloride 109 H Carbon Dioxide 28 Anion Gap 5 BUN 17 Creatinine 0.40 L Est GFR ( Amer) > 60 Glucose 92 Lactic Acid 2.3 H Calcium 7.9 L Phosphorus Magnesium 1.5 L Total Bilirubin AST Alkaline Phosphatase Total Protein Albumin 06/08/20 06/08/20 06/08/20 01:25 05:28 05:28 WBC 41.0 H* 35.2 H* RBC 2.92 L 2.68 L Hgb 7.7 L 6.9 L Hct 24.5 L 22.5 L MCV 84 84 MCH 26.3 L 25.8 L MCHC 31.3 L 30.8 L RDW 22.5 H 22.5 H Plt Count 68 L 63 L Seg Neutrophils % Not Reportable Sodium 137.9 Potassium 3.6 Chloride 104 Carbon Dioxide 28 Anion Gap 6 BUN 17 Creatinine 0.41 L Est GFR ( Amer) > 60 Glucose 109 Lactic Acid Calcium 8.3 L Phosphorus 2.6 Magnesium 2.0 Total Bilirubin 4.8 H AST 66 H Alkaline Phosphatase 107 Total Protein 5.1 L Albumin 2.2 L 05/14/20 05/15/20 06/07/20 15:18 06:45 05:07 Troponin I < 0.012 < 0.012 NT-Pro-B Natriuret Pep 2990 H Impressions: Abdomen Ultrasound 05/07/20 04:47 IMPRESSION: 1. Dilation of the common bile duct again identified measuring 1.2 cm. 2. Hepatic steatosis and hepatomegaly. 3. Prior cholecystectomy. PICC Line Insertion 05/14/20 00:00 IMPRESSION: SUCCESSFUL PLACEMENT OF A 5 FR DUAL LUMEN 42 CM PICC IN THE LEFT BASILIC VEIN. Venous Doppler Study 05/16/20 00:00 IMPRESSION: NO EVIDENCE DVT OR SVT IN EITHER LEG. Hepatobiliary Scan Nuclear Medicine 05/27/20 08:17 IMPRESSION: Prior cholecystectomy. No evidence of bile leak. Vascular Ultrasound 05/28/20 00:00 IMPRESSION: No evidence of portal vein thrombosis. Abdomen CT 05/29/20 00:00 IMPRESSION: 1. Progressive ascites. No focal drainable abscess. Surgical drain remains in place. 2. Worsening lung aeration. WBC Scan Nuclear Medicine 05/30/20 07:00 IMPRESSION: Diffuse uptake in the chest of uncertain etiology, inflammation versus infection. Chest X-Ray 05/31/20 06:00 IMPRESSION: Diffuse bilateral airspace disease slightly more marked centrally. This could represent vascular congestion or multifocal atypical pneumonia. Abdomen/Pelvis CT 06/02/20 00:00 IMPRESSION: Slight interval increase in abdominal ascites without loculated collection. Subhepatic drain remains in place. No definite residual fluid in the gallbladder fossa. Bilateral pleural effusions, slightly increased on the left, with patchy airspace findings in the lung bases bilaterally. Assessment & Plan - Diagnosis (1) Anemia Qualifiers: Anemia type: iron deficiency Iron deficiency anemia type: unspecified iron deficiency Qualified Code(s): D50.9 - Iron deficiency anemia, unspecified Is this a current diagnosis for this admission?: Yes - Time Anticipated Discharge Disposition: Tertiary Anticipated Discharge Timeframe: tba - Plan Summary Plan Summary: pt status essentially unchanged wbc conts to increase with a thrombocytopenia there is no idenfiable source in her abd for the wbc has had extensive investigation incluiding mutliple ct's hida scan, cxr dopplers\ tagged wbc scan case was discussed with Dr Lee (hand outside cutter) this am feels may be related to linelozid, or poss uterine etiol\ plan\ no surgical intervention planned Dr Lee will consult inbound customer service representative for vaginal bleeding stop linelozid surgery will cont to follow.
[2020-06-08] MEDS: THIAMINE HCL 200 MG in NORMAL SALINE 50 ML IV SCH ×2 (09:53→21:32)
[2020-06-08] MEDS: METOPROLOL TARTRATE PF/INJ 5 MG/5 ML SDV IV PRN ×2 (09:54→15:06)
[2020-06-08] MEDS: CEFTRIAXONE 2 GM/D5W RTU 2 GM/50 ML RTUPB IV SCH (09:55)
[2020-06-08] MEDS: FOLIC ACID 1 MG TABLET NG SCH (09:56)
[2020-06-08] MEDS: ZINC SULFATE 220 MG CAPSULE NG SCH (09:56)
[2020-06-08] MEDS: NORMAL SALINE 10 ML SDV (SCHEDULED) IV SCH ×2 (09:56→21:34)
[2020-06-08] MEDS: CHOLECALCIFEROL (D3) 1,000 UNIT (25 MCG) TABLET NG SCH (09:56)
[2020-06-08] MEDS: LIDOCAINE 5% (700 MG) TRANSDERMAL ADH..PATCH TP SCH (09:56)
[2020-06-08] MEDS: MICAFUNGIN SODIUM 100 MG in NORMAL SALINE 100 ML IV SCH (10:09)
--- NOTE | 2020-06-08 14:31 | RADIOLOGY REPORT (SQ) ---
EXAM DESCRIPTION: U/S NON OB PEL W/DOPPLER IMAGES COMPLETED DATE/TIME: 06/08/2020 2:06 pm REASON FOR STUDY: abnormal uterine bleeding COMPARISON: None. TECHNIQUE: Dynamic and static grayscale images acquired of the pelvis via transabdominal approach an d recorded on PACS. Additional selected color Doppler and spectral images recorded. LIMITATIONS: Difficulty positioning. FINDINGS: UTERUS: Contour normal. No mass. ENDOMETRIAL STRIPE: Heterogeneous and thickened. CERVIX: No nabothian cysts. RIGHT OVARY AND DOPPLER: Not visualized. LEFT OVARY AND DOPPLER: Normal size. No worrisome masses. Normal arterial vascular flow without evide nce for torsion. FREE FLUID: None noted. OTHER: No other significant finding. MEASUREMENTS: UTERUS: 10.0 x 5.7 x 5.5 cm. ENDOMETRIAL STRIPE: 23 mm. RIGHT OVARY: Not visualized. LEFT OVARY: 3.5 x 4.3 x 6.4 cm. IMPRESSION: Technical limitations. Thickened endometrium. Differential is hyperplasia or carcinoma . TECHNICAL DOCUMENTATION: JOB ID: [id number] [employer]- All Rights Reserved Rev-03/18 Reading location - IP/workstation name: [email or web address]
[2020-06-08] MEDS ORDERED: ONDANSETRON HCL INJ/PF 4 MG/2 ML SDV ONE (15:08)
[2020-06-08] MEDS: ONDANSETRON HCL INJ/PF 4 MG/2 ML SDV IV PRN (15:11)
[2020-06-08] MEDS ORDERED: MORPHINE SULFATE 10 MG/ML INJ IV ONE (15:30)
[2020-06-08] MEDS: PANTOPRAZOLE SODIUM 40 MG VIAL IV SCH (18:40)
[2020-06-08 21:50] LABS: ANION GAP 6 (5-19); BLOOD UREA NITROGEN 22 mg/dL (7-20); CALCIUM 8.2 mg/dL (8.4-10.2); CARBON DIOXIDE 27 mmol/L (22-30); CHLORIDE 104 mmol/L (98-107); GLUCOSE 99 mg/dL (75-110); POTASSIUM 3.9 mmol/L (3.6-5.0)
[2020-06-09 00:10] LABS: HEMATOCRIT 16.1 % (36.0-47.0); MEAN CORPUSCULAR HEMOGLOBIN 25.3 pg (27.0-33.4); MEAN CORPUSCULAR HGB CONC 30.7 g/dL (32.0-36.0); MEAN CORPUSCULAR VOLUME 82 fl (80-97); PLATELET COUNT 108 10^3/uL (150-450); RED BLOOD COUNT 1.96 10^6/uL (3.72-5.28); RED CELL DISTRIBUTION WIDTH 22.4 % (11.5-14.0)
[2020-06-09 00:18] LABS: WHITE BLOOD COUNT 55.6 10^3/uL (4.0-10.5)
[2020-06-09 00:23] LABS: ABSOLUTE LYMPHOCYTES# (MANUAL) 1.7 10^3/uL (0.5-4.7); ABSOLUTE MONOCYTES # (MANUAL) 3.3 10^3/uL (0.1-1.4); ANISOCYTOSIS 3+; BASOPHILS % (MANUAL) 0 % (0-2); EOSINOPHILS % (MANUAL) 0 % (0-6); LYMPHOCYTES % (MANUAL) 3 % (13-45); MONOCYTES % (MANUAL) 6 % (3-13); PLATELET COMMENT DECREASED; SEGMENTED NEUTROPHILS % (MAN) 91 % (42-78); TOTAL CELLS COUNTED 100
[2020-06-09 00:24] LABS: POIKILOCYTOSIS 2+; POLYCHROMASIA SLIGHT; TARGET CELLS 2+
[2020-06-09] MEDS: INSULIN REG, HUMAN 100 UNIT/ML 3 ML VIAL (PYX) SUBCUT SCH ×4 (01:11→19:26)
[2020-06-09] MEDS: AMINO ACIDS 5 %/DEXTROSE 20 % 1,000 ML IV PRN (02:06)
[2020-06-09] MEDS: WATER IV SCH ×4 (02:43→21:10)
[2020-06-09] MEDS: ASCORBIC ACID IV SCH ×4 (02:43→21:10)
[2020-06-09] MEDS: DEXTROSE 5% IV SCH ×4 (02:43→21:10)
[2020-06-09] MEDS: HEPARIN SOD (PORCINE) 5,000 UNIT/ML 1 ML VIAL SUBCUT SCH ×3 (05:02→21:11)
[2020-06-09 07:13] LABS: HEMATOCRIT 23.3 % (36.0-47.0); MEAN CORPUSCULAR HEMOGLOBIN 27.7 pg (27.0-33.4); MEAN CORPUSCULAR VOLUME 84 fl (80-97); RED BLOOD COUNT 2.78 10^6/uL (3.72-5.28); RED CELL DISTRIBUTION WIDTH 18.3 % (11.5-14.0)
[2020-06-09 07:50] LABS: PLATELET COUNT 93 10^3/uL (150-450)
[2020-06-09 07:52] LABS: WHITE BLOOD COUNT 50.3 10^3/uL (4.0-10.5)
[2020-06-09 07:53] LABS: HEMOGLOBIN 7.7 g/dL (12.0-15.5)
[2020-06-09 07:55] LABS: ABSOLUTE MONOCYTES # (MANUAL) 3.5 10^3/uL (0.1-1.4); BASOPHILS % (MANUAL) 0 % (0-2); EOSINOPHILS % (MANUAL) 1 % (0-6); LYMPHOCYTES % (MANUAL) 8 % (13-45); MONOCYTES % (MANUAL) 7 % (3-13); SEGMENTED NEUTROPHILS % (MAN) 84 % (42-78); TOTAL CELLS COUNTED 100
[2020-06-09 07:58] LABS: ANISOCYTOSIS 2+; PLATELET COMMENT DECREASED; PLATELET GIANT PRESENT; PLATELET LARGE PRESENT
[2020-06-09 08:19] LABS: ALBUMIN 1.9 g/dL (3.5-5.0); ALKALINE PHOSPHATASE 130 U/L (38-126); ASPARTATE AMINO TRANSFERASE 106 U/L (14-36); BILIRUBIN,DIRECT 3.5 mg/dL (0.0-0.4); BLOOD UREA NITROGEN 24 mg/dL (7-20); CALCIUM 8.1 mg/dL (8.4-10.2); CARBON DIOXIDE 28 mmol/L (22-30); CHLORIDE 107 mmol/L (98-107); GLUCOSE 84 mg/dL (75-110); PHOSPHORUS 3.1 mg/dL (2.5-4.5); POTASSIUM 3.9 mmol/L (3.6-5.0); TOTAL PROTEIN 4.8 g/dL (6.3-8.2)
[2020-06-09 08:20] LABS: ANION GAP 4 (5-19)
[2020-06-09] MEDS ORDERED: NORMAL SALINE 250 ML IV PRN ×2 (09:02)
[2020-06-09] MEDS ORDERED: MAGNESIUM SULFATE/D5W 2 GM/200 ML RTUPB IV ONE (09:24)
[2020-06-09] MEDS ORDERED: POTASSI CL 20 MEQ/50 ML RIDER 40 MEQ/100 ML RTUPB IV ONE (09:24)
[2020-06-09] MEDS: POTASSI CL 20 MEQ/50 ML RIDER 20 MEQ/50 ML RTUPB IV SCH ×2 (09:30→11:00)
[2020-06-09] MEDS: MAGNESIUM SULFATE/D5W 1 GM/100 ML RTUPB IV SCH ×2 (09:30→10:29)
[2020-06-09] MEDS: METOPROLOL TARTRATE PF/INJ 5 MG/5 ML SDV IV PRN (09:42)
[2020-06-09] MEDS: PANTOPRAZOLE SODIUM 40 MG VIAL IV SCH (09:42)
[2020-06-09] MEDS ORDERED: FUROSEMIDE INJ/PF 40 MG/4 ML SDV IV ONE (10:00)
[2020-06-09] MEDS: FOLIC ACID 1 MG TABLET NG SCH (10:13)
[2020-06-09] MEDS: NORMAL SALINE 10 ML SDV (SCHEDULED) IV SCH ×2 (10:15→21:12)
[2020-06-09] MEDS: ZINC SULFATE 220 MG CAPSULE NG SCH (10:18)
[2020-06-09] MEDS: CHOLECALCIFEROL (D3) 1,000 UNIT (25 MCG) TABLET NG SCH (10:18)
[2020-06-09] MEDS: LIDOCAINE 5% (700 MG) TRANSDERMAL ADH..PATCH TP SCH (10:28)
[2020-06-09] MEDS: CEFTRIAXONE 2 GM/D5W RTU 2 GM/50 ML RTUPB IV SCH (10:29)
--- NOTE | 2020-06-09 10:32 | PDOC CRITICAL CARE PROG REPORT ---
General Date:: 06/08/20 ICU Day:: 10 Hospital Day:: 33 Resuscitation Status: Full Code Medical Power of Obstetrician And Gynaecologist: DaughterJessica Events in the past 12 to 24 Hours:: This 49-year-old -[place] female smoker presented to [facility] emergency department on 05/07 with abdominal pain and decreased appetite. She was found to be dehydrated with abnormal LFTs, suspicious for a cholestatic pattern. With a history of gastric bypass (2003), the patient underwent surgical evaluation by Dr. Hubbard, which included intraoperative liver biopsy and choledochoduodenostomy. She was started on Unasyn/Flagyl postoperatively, and the patient has been through a succession of antimicrobials, including Zosyn, meropenem, linezolid and micafungin. She was transferred to the ICU on 05/29 due to concerns for worsening sepsis. She is afebrile and not requiring any vasopressor support; however, she has a waxing and waning leukocytosis (neutrophilia without bandemia). C. difficile has been checked twice and was found to be negative. 06/08: Case discussed with Dr. Hubbard. WBC count up to 35.2 today. Hemoglobin 6.9. Platelets 63. On linezolid, unclear clinical indication at this point. Nursing staff reports that the patient is having bloody output from the vagina. Patient reports last known menstrual flow phase was 6 years ago. She does report having been informed of "fibroids" and denies any other history of dysfunctional uterine bleeding. Review of systems relevant to events:: Patient state she feels bad this morning however she denies any chest pain or increased shortness of breath. She does complain of abdominal pain when palpated. Reason for ICU Addmission:: Tenuous neuro status. May be septic from fungemia. - Medications: Medications reviewed and adjusted accordingly: Yes Vasopressors:: none Physical Exam Vital Signs: Temp Pulse Resp BP Pulse Ox 98.5 F 103 H 27 H 118/68 98 06/08/20 10:00 06/08/20 10:00 06/08/20 10:01 06/08/20 10:01 06/08/20 10:01 Intake & Output 06/07/20 06/08/20 06/09/20 06:59 06:59 06:59 Intake Total 2854 2514 Output Total 4450 2845 357 Balance -1596 -331 -357 Weight 139.1 kg 140.8 kg Weight/Height Weight 140.8 kg Height 1.73 m General appearance: PRESENT: no acute distress, well-developed, well-nourished Head exam: PRESENT: atraumatic, normocephalic Eye exam: PRESENT: conjunctiva pink, EOMI, PERRLA. ABSENT: scleral icterus Mouth exam: PRESENT: moist, tongue midline Neck exam: ABSENT: carotid bruit, JVD, lymphadenopathy, thyromegaly Respiratory exam: PRESENT: decreased breath sounds - Shallow respirations. ABSENT: rales, rhonchi, wheezes Pulses: PRESENT: normal dorsalis pedis pul GI/Abdominal exam: PRESENT: normal bowel sounds, soft. ABSENT: distended, guarding, mass, organolmegaly, rebound, tenderness Gentrourinary exam: PRESENT: indwelling catheter, other - Large amounts of blood per vagina (2+ abdominal pads) Extremities exam: PRESENT: full ROM, pedal edema. ABSENT: calf tenderness, clubbing Neurological exam: PRESENT: alert, awake, oriented to person, oriented to place, oriented to time, oriented to situation, CN II-XII grossly intact. ABSENT: motor sensory deficit Tubes/Lines: PRESENT: Other - PICC line Laboratory/Radiographs Laboratory Results: 06/08/20 05:28 06/08/20 05:28 06/07/20 06/07/20 06/08/20 23:28 23:28 01:25 WBC 41.0 H* RBC 2.92 L Hgb 7.7 L Hct 24.5 L MCV 84 MCH 26.3 L MCHC 31.3 L RDW 22.5 H Plt Count 68 L Seg Neutrophils % Sodium 142.4 Potassium 2.9 L* Chloride 109 H Carbon Dioxide 28 Anion Gap 5 BUN 17 Creatinine 0.40 L Est GFR ( Amer) > 60 Glucose 92 Calcium 7.9 L Phosphorus Magnesium 1.5 L Total Bilirubin AST Alkaline Phosphatase Total Protein Albumin 06/08/20 06/08/20 05:28 05:28 WBC 35.2 H* RBC 2.68 L Hgb 6.9 L Hct 22.5 L MCV 84 MCH 25.8 L MCHC 30.8 L RDW 22.5 H Plt Count 63 L Seg Neutrophils % Not Reportable Sodium 137.9 Potassium 3.6 Chloride 104 Carbon Dioxide 28 Anion Gap 6 BUN 17 Creatinine 0.41 L Est GFR ( Amer) > 60 Glucose 109 Calcium 8.3 L Phosphorus 2.6 Magnesium 2.0 Total Bilirubin 4.8 H AST 66 H Alkaline Phosphatase 107 Total Protein 5.1 L Albumin 2.2 L 05/14/20 05/15/20 06/07/20 15:18 06:45 05:07 Troponin I < 0.012 < 0.012 NT-Pro-B Natriuret Pep 2990 H Impressions: Abdomen Ultrasound 05/07/20 04:47 IMPRESSION: 1. Dilation of the common bile duct again identified measuring 1.2 cm. 2. Hepatic steatosis and hepatomegaly. 3. Prior cholecystectomy. PICC Line Insertion 05/14/20 00:00 IMPRESSION: SUCCESSFUL PLACEMENT OF A 5 FR DUAL LUMEN 42 CM PICC IN THE LEFT BASILIC VEIN. Venous Doppler Study 05/16/20 00:00 IMPRESSION: NO EVIDENCE DVT OR SVT IN EITHER LEG. Hepatobiliary Scan Nuclear Medicine 05/27/20 08:17 IMPRESSION: Prior cholecystectomy. No evidence of bile leak. Vascular Ultrasound 05/28/20 00:00 IMPRESSION: No evidence of portal vein thrombosis. Abdomen CT 05/29/20 00:00 IMPRESSION: 1. Progressive ascites. No focal drainable abscess. Surgical drain remains in place. 2. Worsening lung aeration. WBC Scan Nuclear Medicine 05/30/20 07:00 IMPRESSION: Diffuse uptake in the chest of uncertain etiology, inflammation ve rsus infection. Chest X-Ray 05/31/20 06:00 IMPRESSION: Diffuse bilateral airspace disease slightly more marked centrally. This could represent vascular congestion or multifocal atypical pneumonia. Abdomen/Pelvis CT 06/02/20 00:00 IMPRESSION: Slight interval increase in abdominal ascites without loculated collection. Subhepatic drain remains in place. No definite residual fluid in the gallbladder fossa. Bilateral pleural effusions, slightly increased on the left, with patchy airspace findings in the lung bases bilaterally. All labs, radiographs, diagnostic studies and EKGs were personally reviewed: Yes In addition, reports of radiographic and diagnostic studies were read: Yes Assessment and Plan - Diagnosis (1) Abnormal uterine bleeding Is this a current diagnosis for this admission?: Yes Plan: Transvaginal ultrasound to evaluate abnormal uterine bleeding. Will need gynecology consult for further evaluation. (2) Normocytic anemia Is this a current diagnosis for this admission?: Yes Plan: While the patient is known to have chronic iron deficiency anemia, the patient's acute on chronic anemia likely reflects decline in hemoglobin due to her abnormal uterine bleeding. (3) Iron deficiency anemia due to chronic blood loss Is this a current diagnosis for this admission?: Yes (4) Obesity (BMI 30.0-34.9) Is this a current diagnosis for this admission?: Yes Plan: BMI 38.5 Strongly encourage dietary compliance and lifestyle modification. (5) Biliary stricture Is this a current diagnosis for this admission?: Yes Plan: Case discussed with Dr. Hubbard. Surgery input appreciated. Will continue TPN today; however, will deliberately infuse at 50% volume rate in hopes of in inducing/stimulating appetite. Critical Time Critical Time (minutes): 60 Level of Care: ICU -: 1. The care of a critical patient is a dynamic process. This note is a welding equipment sales representative synopsis but static in nature. The timeframe for treatments given in order is not necessarily the actual time these treatments may have been done. 2. This patient requires critical care secondary to ongoing requirements for therapy not offered or safe outside the critical care environment. Transfer to a lower level of care will result in altered life or limb morbidity and mortality. 3. Multidisciplinary rounds completed. 4. ABCDE bundle addressed.
[2020-06-09] MEDS: THIAMINE HCL 200 MG in NORMAL SALINE 50 ML IV SCH ×2 (10:55→21:11)
--- NOTE | 2020-06-09 11:43 | RADIOLOGY REPORT (SQ) ---
EXAM DESCRIPTION: CHEST SINGLE VIEW IMAGES COMPLETED DATE/TIME: 06/09/2020 11:35 am REASON FOR STUDY: pneumonia COMPARISON: 05/31/2020 NUMBER OF VIEWS: One view. TECHNIQUE: Single frontal radiographic image of the chest acquired. LIMITATIONS: None. FINDINGS: LUNGS AND PLEURA: Bilateral airspace disease with interval silhouetting of the left diaphr agm. No evidence of cavitation. MEDIASTINUM AND HEART: Stable heart size and mediastinal structures. BONY STRUCTURES: No acute findings. HARDWARE: None. OTHER: Unchanged position of left PICC line. IMPRESSION: Rehydration versus progressing pneumonia. TECHNICAL DOCUMENTATION: JOB ID: [id number] Reading location - IP/workstation name: [email or web address]
[2020-06-09] MEDS: MORPHINE SULFATE 10 MG/ML INJ IV PRN ×2 (11:48→23:57)
[2020-06-09 13:59] LABS: ABSOLUTE RETICS # 0.089 10^6/uL (0.028-0.122); RETICULOCYTE COUNT (AUTO) 2.84 % (0.66-2.85)
[2020-06-09 17:33] LABS: FOLATE 7.58 ng/mL (>2.76)
--- NOTE | 2020-06-09 18:09 | PDOC CRITICAL CARE PROG REPORT ---
General Date:: 06/09/20 ICU Day:: 11 Hospital Day:: 34 Resuscitation Status: Full Code Medical Power of Institution Librarian: DaughterJessica Events in the past 12 to 24 Hours:: This 49-year-old -[place] female smoker presented to [facility] emergency department on 05/07 with abdominal pain and decreased appetite. She was found to be dehydrated with abnormal LFTs, suspicious for a cholestatic pattern. With a history of gastric bypass (2003), the patient underwent surgical evaluation by Dr. Hubbard, which included intraoperative liver biopsy and choledochoduodenostomy. She was started on Unasyn/Flagyl postoperatively, and the patient has been through a succession of antimicrobials, including Zosyn, meropenem, linezolid and micafungin. She was transferred to the ICU on 05/29 due to concerns for worsening sepsis. She is afebrile and not requiring any vasopressor support; however, she has a waxing and waning leukocytosis (neutrophilia without bandemia). C. difficile has been checked twice and was found to be negative. 06/08: Case discussed with Dr. Hubbard. WBC count up to 35.2 today. Hemoglobin 6.9. Platelets 63. On linezolid, unclear clinical indication at this point. Nursing staff reports that the patient is having bloody output from the vagina. Patient reports last known menstrual flow phase was 6 years ago. She does report having been informed of "fibroids" and denies any other history of dysfunctional uterine bleeding. 06/09: Overnight, the patient became hypotensive and ashen in appearance. Also, mild lethargy was reported. Hemoglobin 6.95.0. She received 2 units PRBC with subsequent improvement in total status and hemodynamics. Not on pressors. She continues to have menorrhagia. In the interim, I was able to discuss the patient's status with the patient's daughter, who reports that the patient must have been confused yesterday. She has continued to have regular menstrual flow phases on a monthly basis. She has a longstanding history of menorrhagia. She did confirm that she had been diagnosed with "fibroids". Today, she is awake and alert. WBC 50.3. Review of systems relevant to events:: Gastrointestinal: Abdominal pain, anorexia Hematologic: Leukocytosis, anemia Genitourinary: Menorrhagia Reason for ICU Addmission:: Tenuous neuro status. May be septic from fungemia. - Medications: Medications reviewed and adjusted accordingly: Yes Physical Exam Vital Signs: Temp Pulse Resp BP Pulse Ox 98.2 F 116 H 17 105/66 100 06/09/20 05:36 06/09/20 05:36 06/09/20 06:16 06/09/20 06:16 06/09/20 05:36 Intake & Output 06/08/20 06/09/20 06/10/20 06:59 06:59 06:59 Intake Total 2514 1854 800 Output Total 2845 942 Balance -331 912 800 Weight 140.8 kg 139.1 kg Weight/Height Weight 139.1 kg Height 1.73 m General appearance: PRESENT: no acute distress, well-developed, well-nourished Head exam: PRESENT: atraumatic, normocephalic Eye exam: PRESENT: conjunctiva pink, EOMI, PERRLA. ABSENT: scleral icterus Mouth exam: PRESENT: moist, tongue midline, other - Poor dentition Neck exam: ABSENT: carotid bruit, JVD, lymphadenopathy, thyromegaly Respiratory exam: PRESENT: clear to auscultation winter. ABSENT: rales, rhonchi, wheezes Cardiovascular exam: PRESENT: RRR. ABSENT: diastolic murmur, rubs, systolic murmur GI/Abdominal exam: PRESENT: hypoactive bowel sounds, soft, other - ROSALVA drain with serosanguineous output. ABSENT: distended, guarding, mass, organolmegaly, rebound, tenderness Gentrourinary exam: PRESENT: indwelling catheter, other - Menorrhagia Extremities exam: PRESENT: full ROM, pedal edema, +1 edema. ABSENT: calf tenderness, clubbing Neurological exam: PRESENT: alert, awake, oriented to person, oriented to place, oriented to time, oriented to situation, CN II-XII grossly intact. ABSENT: motor sensory deficit Skin exam: PRESENT: dry, intact, warm. ABSENT: cyanosis, rash Tubes/Lines: PRESENT: Other - Left upper extremity PICC line Laboratory/Radiographs Laboratory Results: 06/09/20 06:06 06/09/20 06:06 06/08/20 06/08/20 06/08/20 20:00 21:21 23:35 WBC 55.6 H* RBC 1.96 L Hgb 5.0 L* Hct 16.1 L MCV 82 MCH 25.3 L MCHC 30.7 L RDW 22.4 H Plt Count 108 L Seg Neutrophils % Not Reportable Sodium Cancelled 137.4 Potassium Cancelled 3.9 Chloride Cancelled 104 Carbon Dioxide Cancelled 27 Anion Gap Cancelled 6 BUN Cancelled 22 H Creatinine Cancelled 0.56 Est GFR ( Amer) Cancelled > 60 Est GFR (Non-Af Amer) Cancelled Glucose Cancelled 99 Calcium Cancelled 8.2 L Phosphorus Magnesium Total Bilirubin AST Alkaline Phosphatase Total Protein Albumin Blood Type Antibody Screen 06/09/20 06/09/20 06/09/20 00:53 06:06 06:06 WBC 50.3 H* RBC 2.78 L Hgb 7.7 L D Hct 23.3 L MCV 84 MCH 27.7 MCHC 33.0 RDW 18.3 H Plt Count 93 L Seg Neutrophils % Not Reportable Sodium 139.0 Potassium 3.9 Chloride 107 Carbon Dioxide 28 Anion Gap 4 L BUN 24 H Creatinine 0.67 Est GFR ( Amer) > 60 Est GFR (Non-Af Amer) Glucose 84 Calcium 8.1 L Phosphorus 3.1 Magnesium 1.8 Total Bilirubin 5.0 H AST 106 H Alkaline Phosphatase 130 H Total Protein 4.8 L Albumin 1.9 L Blood Type AB POSITIVE Antibody Screen NEGATIVE 05/14/20 05/15/20 06/07/20 15:18 06:45 05:07 Troponin I < 0.012 < 0.012 NT-Pro-B Natriuret Pep 2990 H Impressions: Abdomen Ultrasound 05/07/20 04:47 IMPRESSION: 1. Dilation of the common bile duct again identified measuring 1.2 cm. 2. Hepatic steatosis and hepatomegaly. 3. Prior cholecystectomy. PICC Line Insertion 05/14/20 00:00 IMPRESSION: SUCCESSFUL PLACEMENT OF A 5 FR DUAL LUMEN 42 CM PICC IN THE LEFT BASILIC VEIN. Venous Doppler Study 05/16/20 00:00 IMPRESSION: NO EVIDENCE DVT OR SVT IN EITHER LEG. Hepatobiliary Scan Nuclear Medicine 05/27/20 08:17 IMPRESSION: Prior cholecystectomy. No evidence of bile leak. Vascular Ultrasound 05/28/20 00:00 IMPRESSION: No evidence of portal vein thrombosis. Abdomen CT 05/29/20 00:00 IMPRESSION: 1. Progressive ascites. No focal drainable abscess. Surgical drain remains in place. 2. Worsening lung aeration. WBC Scan Nuclear Medicine 05/30/20 07:00 IMPRESSION: Diffuse uptake in the chest of uncertain etiology, inflammation versus infection. Chest X-Ray 05/31/20 06:00 IMPRESSION: Diffuse bilateral airspace disease slightly more marked centrally. This could represent vascular congestion or multifocal atypical pneumonia. Abdomen/Pelvis CT 06/02/20 00:00 IMPRESSION: Slight interval increase in abdominal ascites without loculated col lection. Subhepatic drain remains in place. No definite residual fluid in the gallbladder fossa. Bilateral pleural effusions, slightly increased on the left, with patchy airspace findings in the lung bases bilaterally. Pelvis Ultrasound 06/08/20 00:00 IMPRESSION: Technical limitations. Thickened endometrium. Differential is hyperplasia or carcinoma. All labs, radiographs, diagnostic studies and EKGs were personally reviewed: Yes In addition, reports of radiographic and diagnostic studies were read: Yes Assessment and Plan - Diagnosis (1) Abnormal uterine bleeding Is this a current diagnosis for this admission?: Yes Plan: Transvaginal ultrasound revealed endometrial thickening (hyperplasia versus malignancy). Consult request to Dr. Sarah Mcqueen for recommendations on further evaluation and management of menorrhagia and possible uterine/endometrial cancer. Case discussed by phone. (2) Leukocytosis Qualifiers: Leukocytosis type: unspecified Qualified Code(s): D72.829 - Elevated white blood cell count, unspecified Is this a current diagnosis for this admission?: Yes Plan: Leukocytosis without bandemia. Suspicious for myelodysplastic process or hematologic malignancy. Consult requested Dr. Garcia for further evaluation and management of leukocytosis. Case discussed by phone. Check ferritin, iron saturation, total iron binding capacity, Darci 2 mutation, CM L FISH Urine culture 05/19/2020: VRE, which was treated with linezolid. Blood cultures 05/19/2020 NG at 5 days. ROSALVA drain cultures 05/30/2020: E. coli, yeast (not Ashlie albicans), treated with Rocephin and micafungin Abdominal fluid 05/31/2020: E. coli, yeast (not Ashlie albicans), treated with Rocephin and micafungin Stool for C. difficile negative x2 after which metronidazole was discontinued. (3) Klebsiella pneumoniae pneumonia Qualifiers: Laterality: left Is this a current diagnosis for this admission?: Yes Plan: On Rocephin based on sensitivities. (4) Normocytic anemia Is this a current diagnosis for this admission?: Yes Plan: Transfused 2 units PRBC overnight. Furosemide 40 mg IV single dose today. Additional transfusion 2 units PRBC today. (5) Iron deficiency anemia due to chronic blood loss Is this a current diagnosis for this admission?: Yes (6) Obesity (BMI 30.0-34.9) Is this a current diagnosis for this admission?: Yes Plan: BMI 38.5, status post gastric bypass. Vitamin supplementation. Currently, on TPN. Strongly encourage dietary compliance and lifestyle modification. (7) Biliary stricture Is this a current diagnosis for this admission?: Yes Critical Time Critical Time (minutes): 90 Level of Care: ICU -: 1. The care of a critical patient is a dynamic process. This note is a assistance representative synopsis but static in nature. The timeframe for treatments given in order is not necessarily the actual time these treatments may have been done. 2. This patient requires critical care secondary to ongoing requirements for therapy not offered or safe outside the critical care environment. Transfer to a lower level of care will result in altered life or limb morbidity and mortality. 3. Multidisciplinary rounds completed. 4. ABCDE bundle addressed.
[2020-06-09] MEDS: MICAFUNGIN SODIUM 100 MG in NORMAL SALINE 100 ML IV SCH (19:26)
[2020-06-09] MEDS: MEDROXYPROGESTERONE ACET 10 MG TABLET NG SCH (19:26)
[2020-06-09] MEDS: RINGERS SOLUTION,LACTATED 1,000 ML IV PRN (21:12)
[2020-06-09] MEDS: ONDANSETRON HCL INJ/PF 4 MG/2 ML SDV IV PRN (23:57)
[2020-06-10] MEDS: INSULIN REG, HUMAN 100 UNIT/ML 3 ML VIAL (PYX) SUBCUT SCH ×2 (00:21→06:32)
[2020-06-10] MEDS: ASCORBIC ACID 500 MG TABLET NG SCH ×3 (03:43→15:06)
[2020-06-10 06:23] LABS: ALBUMIN 1.8 g/dL (3.5-5.0); ALKALINE PHOSPHATASE 180 U/L (38-126); ANION GAP 7 (5-19); ASPARTATE AMINO TRANSFERASE 112 U/L (14-36); BILIRUBIN,DIRECT 4.9 mg/dL (0.0-0.4); BILIRUBIN,TOTAL 6.3 mg/dL (0.2-1.3); BLOOD UREA NITROGEN 22 mg/dL (7-20); CALCIUM 8.1 mg/dL (8.4-10.2); CARBON DIOXIDE 27 mmol/L (22-30); CHLORIDE 106 mmol/L (98-107); GLUCOSE 73 mg/dL (75-110); INTERNATIONAL RATION (INR) 1.45; PHOSPHORUS 3.1 mg/dL (2.5-4.5); POTASSIUM 3.8 mmol/L (3.6-5.0); PROTHROMBIN TIME 17.8 SEC (11.4-15.4); TOTAL PROTEIN 4.8 g/dL (6.3-8.2)
[2020-06-10 06:32] LABS: PREALBUMIN 5.3 mg/dL (17.6-36.0)
--- NOTE | 2020-06-10 07:30 | PDOC CONSULTATION ---
Consultation Consult Date: 06/09/20 Provider Consulted: STEVEN OCHOA History of Present Illness Admission Date/PCP: 05/07/20 10:55 HARMONY RENE DO Patient complains of: Vaginal bleeding History of Present Illness: ZACK WYLIE is a 49 year old -Citizen Of [place], smoker with heavy vaginal bleeding. Staff at bedside reports bleeding heavy for last couple of days. She has abdominal pain but is post-op currently . She has been being treated for sepsis, anemia, fungemia, has history of Mack[place] en Y gastric bypass. Her daughter Jessica reports she has been having heavy periods for several years and she has required transfusion for the resulting anemia on more than one episode. She is not seen by a [facility] outpatient but presents to the ED as needed. 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 OB Hx : Four spontaneous vaginal deliveries and then tubal ligation [facility] Hx: reports last PAP > 10 yrs ago. Remote history of fibroid Admitted on 05/07 with abdominal pain and decreased appetite and at that time was found to be dehydrated with abnormal LFTs, suspicious for a cholestatic issue. Because of her history of gastric bypass (2003), she underwent surgical evaluation by Dr. Hubbard and an intraoperative liver biopsy and choledochoduodenostomy were done. She has recieved many antimicrobials, including Unasyn, flagyl, Zosyn, meropenem, linezolid and micafungin. She was transferred to the ICU on 05/29 due to concerns for worsening sepsis. She is afebrile and hemodynamically stable on room air. Chart reflects waxing and waning leukocytosis. Plateletts are low and she is anemic (Hgb 7.7) receiving PRBCs currently. Past Medical History Psychiatric Medical History: Denies: Depression Social History Lives with: Family Smoking Status: Current Every Day Smoker Cigarettes Packs Per Day: 0.5 Electronic Cigarette use?: No Frequency of Alcohol Use: Occasional Hx Recreational Drug Use: No Drugs: None Hx Prescription Drug Abuse: No - Advance Directive Resuscitation Status: Full Code Family History Family History: Reviewed & Not Pertinent Parental Family History Reviewed: Yes Children Family History Reviewed: Yes Sibling(s) Family History Reviewed.: Yes Medication/Allergy Home Medications: Calcium Carbonate [Calcium] 500 mg PO DAILY 05/07/20 Ferrous Sulfate [Feosol 325 mg Tablet] 325 mg PO DAILY 05/07/20 Multivitamin 1 each PO DAILY 05/07/20 [place]-3 Fatty Acids [[place]-3] 1,000 mg PO DAILY 05/07/20 Allergies/Adverse Reactions: No Known Allergies Allergy (Verified 06/05/20 18:52) Review of Systems All systems: reviewed and no additional remarkable complaints except as stated Constitutional: PRESENT: anorexia, weakness Physical Exam - Physical Exam Vital Signs: Temp Pulse Resp BP Pulse Ox 98.9 F 110 H 19 121/84 100 06/09/20 14:40 06/09/20 14:50 06/09/20 15:00 06/09/20 15:00 06/09/20 15:00 Intake & Output 06/08/20 06/09/20 06/10/20 06:59 06:59 06:59 Intake Total 2514 1854 1302 Output Total 2845 942 625 Balance -331 912 677 Weight 140.8 kg 139.1 kg General appearance: PRESENT: mild distress - Difficulty to understand, morbidly obese Mouth exam: PRESENT: dry mucosa Cardiovascular exam: PRESENT: RRR, +S1, +S2 GI/Abdominal exam: PRESENT: distended, soft Extremities exam: PRESENT: +2 edema Skin exam: PRESENT: dry, warm - Gynecological Exam Labia: normal - She does have a few areas of broken skin on upper thighs near groin. Dark red blood with clots about the size softball noted on pad between patients legs. She has considerable swelling, morbidly obese and is in an ICU bed -Not able to do pelvic exam in this setting. Result Laboratory Results: 06/09/20 06:06 06/09/20 06:06 06/08/20 06/08/20 06/08/20 20:00 21:21 23:35 WBC 55.6 H* RBC 1.96 L Hgb 5.0 L* Hct 16.1 L MCV 82 MCH 25.3 L MCHC 30.7 L RDW 22.4 H Plt Count 108 L Seg Neutrophils % Not Reportable Retic Count (auto) Sodium Cancelled 137.4 Potassium Cancelled 3.9 Chloride Cancelled 104 Carbon Dioxide Cancelled 27 Anion Gap Cancelled 6 BUN Cancelled 22 H Creatinine Cancelled 0.56 Est GFR ( Amer) Cancelled > 60 Est GFR (Non-Af Amer) Cancelled Glucose Cancelled 99 Calcium Cancelled 8.2 L Phosphorus Magnesium Ferritin Total Bilirubin GGT AST Alkaline Phosphatase Total Protein Albumin Blood Type Antibody Screen 06/09/20 06/09/20 06/09/20 00:53 06:06 06:06 WBC 50.3 H* RBC 2.78 L Hgb 7.7 L D Hct 23.3 L MCV 84 MCH 27.7 MCHC 33.0 RDW 18.3 H Plt Count 93 L Seg Neutrophils % Not Reportable Retic Count (auto) Sodium 139.0 Potassium 3.9 Chloride 107 Carbon Dioxide 28 Anion Gap 4 L BUN 24 H Creatinine 0.67 Est GFR ( Amer) > 60 Est GFR (Non-Af Amer) Glucose 84 Calcium 8.1 L Phosphorus 3.1 Magnesium 1.8 Ferritin Total Bilirubin 5.0 H GGT AST 106 H Alkaline Phosphatase 130 H Total Protein 4.8 L Albumin 1.9 L Blood Type AB POSITIVE Antibody Screen NEGATIVE 06/09/20 06/09/20 06/09/20 10:08 12:55 12:55 WBC RBC Hgb Hct MCV MCH MCHC RDW Plt Count Seg Neutrophils % Retic Count (auto) 2.84 Sodium Potassium Chloride Carbon Dioxide Anion Gap BUN Creatinine Est GFR ( Amer) Est GFR (Non-Af Amer) Glucose Calcium Phosphorus Magnesium Ferritin 575.00 H Total Bilirubin GGT 226 H AST Alkaline Phosphatase Total Protein Albumin Blood Type Antibody Screen 05/14/20 05/15/20 06/07/20 15:18 06:45 05:07 Troponin I < 0.012 < 0.012 NT-Pro-B Natriuret Pep 2990 H Impressions: Abdomen Ultrasound 05/07/20 04:47 IMPRESSION: 1. Dilation of the common bile duct again identified measuring 1.2 cm. 2. Hepatic steatosis and hepatomegaly. 3. Prior cholecystectomy. PICC Line Insertion 05/14/20 00:00 IMPRESSION: SUCCESSFUL PLACEMENT OF A 5 FR DUAL LUMEN 42 CM PICC IN THE LEFT BASILIC VEIN. Venous Doppler Study 05/16/20 00:00 IMPRESSION: NO EVIDENCE DVT OR SVT IN EITHER LEG. Hepatobiliary Scan Nuclear Medicine 05/27/20 08:17 IMPRESSION: Prior cholecystectomy. No evidence of bile leak. Vascular Ultrasound 05/28/20 00:00 IMPRESSION: No evidence of portal vein thrombosis. Abdomen CT 05/29/20 00:00 IMPRESSION: 1. Progressive ascites. No focal drainable abscess. Surgical drain remains in place. 2. Worsening lung aeration. WBC Scan Nuclear Medicine 05/30/20 07:00 IMPRESSION: Diffuse uptake in the chest of uncertain etiology, inflammation versus infection. Abdomen/Pelvis CT 06/02/20 00:00 IMPRESSION: Slight interval increase in abdominal ascites without loculated collection. Subhepatic drain remains in place. No definite residual fluid in the gallbladder fossa. Bilateral pleural effusions, slightly increased on the left, with patchy airspace findings in the lung bases bilaterally. Pelvis Ultrasound 06/08/20 00:00 IMPRESSION: Technical limitations. Thickened endometrium. Differential is hyperplasia or carcinoma. Chest X-Ray 06/09/20 11:06 IMPRESSION: Rehydration versus progressing pneumonia. Assessment & Plan - Diagnosis (1) Menorrhagia Qualifiers: Menorrhagia type: premenopausal Qualified Code(s): N92.4 - Excessive bleeding in the premenopausal period Is this a current diagnosis for this admission?: Yes - Time Critical Time spent with patient: 15-24 minutes Anticipated Discharge Disposition: prmary team Anticipated Discharge Timeframe: Not primary team - Plan Summary Plan Summary: 49 yo -Citizen Of [place], smoker with menorrhagia -hemodynamically stable -Had large amount of dark red blood on pad at time of exam but unable to do a pelvic exam due to habitus. It would be best to do pelvic exam with endometrial biopsy but no availability of pipelles in hospital and quite difficult with her body habitus in an ICU bed without stirrups Sampling of the endometrium could be done as outpatient or under anesthesia as well. Anemia appears present before her bleeding started this visit so likely other contributors Would like to begin patient on progestin such as Provera 20mg TID for 1 week followed by 20mg daily. This could be given via NGT until taking PO. Due to risk factors and obesity, I would recommend avoiding estrogen in this patient. Once endometrial sampling is done would consider a Mirena IUD for protection of endometrium if biopsy benign. If hyperplasia or malignancy found on endometrial biopsy, would recommend [facility]/ONC If bleeding too heavy may require D&C or trial of tranexamic acid which can be given IV (not if hx DVT/VTE) if not surgical candidate but carries controversial risk of thrombotic event so usually after other options
[2020-06-10 07:46] LABS: HEMATOCRIT 27.1 % (36.0-47.0); HEMOGLOBIN 8.9 g/dL (12.0-15.5); MEAN CORPUSCULAR HEMOGLOBIN 28.7 pg (27.0-33.4); MEAN CORPUSCULAR VOLUME 87 fl (80-97); RED BLOOD COUNT 3.11 10^6/uL (3.72-5.28); RED CELL DISTRIBUTION WIDTH 17.1 % (11.5-14.0)
[2020-06-10 08:14] LABS: PLATELET COUNT 92 10^3/uL (150-450)
[2020-06-10 08:17] LABS: WHITE BLOOD COUNT 40.4 10^3/uL (4.0-10.5)
[2020-06-10 08:19] LABS: ABSOLUTE MONOCYTES # (MANUAL) 1.6 10^3/uL (0.1-1.4); BASOPHILS % (MANUAL) 0 % (0-2); EOSINOPHILS % (MANUAL) 0 % (0-6); LYMPHOCYTES % (MANUAL) 0 % (13-45); MONOCYTES % (MANUAL) 4 % (3-13); SEGMENTED NEUTROPHILS % (MAN) 96 % (42-78); TOTAL CELLS COUNTED 100
[2020-06-10 08:21] LABS: ANISOCYTOSIS 2+; OVALOCYTES SLIGHT; PLATELET COMMENT DECREASED; POIKILOCYTOSIS SLIGHT; POLYCHROMASIA SLIGHT; SMUDGE CELLS PRESENT
--- NOTE | 2020-06-10 08:28 | RADIOLOGY REPORT (SQ) ---
EXAM DESCRIPTION: CHEST SINGLE VIEW IMAGES COMPLETED DATE/TIME: 06/10/2020 6:10 am REASON FOR STUDY: leukocytosis COMPARISON: 06/09/2020 EXAM PARAMETERS: NUMBER OF VIEWS: One view. TECHNIQUE: Single frontal radiographic view of the chest acquired. RADIATION DOSE: NA LIMITATIONS: None. FINDINGS: LUNGS AND PLEURA: Perihilar and basilar predominant interstitial and patchy alveolar opaci ties, similar to prior. Small bilateral pleural effusions. No pneumothorax. MEDIASTINUM AND HILAR STRUCTURES: Fluffy perihilar opacities. HEART AND VASCULAR STRUCTURES: Enlarged, stable. Central vascular congestion. BONES: No acute findings. HARDWARE: The left approach PICC tip terminates at brachiocephalic vein. OTHER: No other significant finding. IMPRESSION: Stable perihilar and basilar predominant airspace disease and small bilateral effusions suggestive of pulmonary edema. Superimposed infection is not excluded. TECHNICAL DOCUMENTATION: JOB ID: [id number] 2010 [employer]- All Rights Reserved Reading location - IP/workstation name: [email or web address]
[2020-06-10] MEDS: FOLIC ACID 1 MG TABLET NG SCH (09:09)
[2020-06-10] MEDS: MEDROXYPROGESTERONE ACET 10 MG TABLET NG SCH ×3 (09:10→19:39)
[2020-06-10] MEDS: CHOLECALCIFEROL (D3) 1,000 UNIT (25 MCG) TABLET NG SCH (09:10)
[2020-06-10] MEDS: ZINC SULFATE 220 MG CAPSULE NG SCH (09:11)
[2020-06-10] MEDS: RINGERS SOLUTION,LACTATED 1,000 ML IV PRN (10:22)
[2020-06-10] MEDS: CEFTRIAXONE 2 GM/D5W RTU 2 GM/50 ML RTUPB IV SCH (10:23)
[2020-06-10] MEDS: MICAFUNGIN SODIUM 100 MG in NORMAL SALINE 100 ML IV SCH (10:25)
[2020-06-10] MEDS: PANTOPRAZOLE SODIUM 40 MG VIAL IV SCH (10:27)
[2020-06-10] MEDS: LIDOCAINE 5% (700 MG) TRANSDERMAL ADH..PATCH TP SCH (10:28)
[2020-06-10] MEDS: NORMAL SALINE 10 ML SDV (SCHEDULED) IV SCH ×2 (10:28→23:15)
[2020-06-10] MEDS: THIAMINE HCL 200 MG in NORMAL SALINE 50 ML IV SCH ×2 (10:35→23:14)
[2020-06-10] MEDS: FAT EMULSIONS 250 ML IV SCH (16:05)
--- NOTE | 2020-06-10 18:27 | PDOC CRITICAL CARE PROG REPORT ---
General Date:: 06/10/20 ICU Day:: 12 Hospital Day:: 35 Resuscitation Status: Full Code Medical Power of Slate Cutter Operator: DaughterJessica Events in the past 12 to 24 Hours:: This 49-year-old -[place] female smoker presented to [facility] emergency department on 05/07 with abdominal pain and decreased appetite. She was found to be dehydrated with abnormal LFTs, suspicious for a cholestatic pattern. With a history of gastric bypass (2003), the patient underwent surgical evaluation by Dr. Hubbard, which included intraoperative liver biopsy and choledochoduodenostomy. She was started on Unasyn/Flagyl postoperatively, and the patient has been through a succession of antimicrobials, including Zosyn, meropenem, linezolid and micafungin. She was transferred to the ICU on 05/29 due to concerns for worsening sepsis. She is afebrile and not requiring any vasopressor support; however, she has a waxing and waning leukocytosis (neutrophilia without bandemia). C. difficile has been checked twice and was found to be negative. 06/08: Case discussed with Dr. Hubbard. WBC count up to 35.2 today. Hemoglobin 6.9. Platelets 63. On linezolid, unclear clinical indication at this point. Nursing staff reports that the patient is having bloody output from the vagina. Patient reports last known menstrual flow phase was 6 years ago. She does report having been informed of "fibroids" and denies any other history of dysfunctional uterine bleeding. 06/09: Overnight, the patient became hypotensive and ashen in appearance. Also, mild lethargy was reported. Hemoglobin 6.95.0. She received 2 units PRBC with subsequent improvement in total status and hemodynamics. Not on pressors. She continues to have menorrhagia. In the interim, I was able to discuss the patient's status with the patient's daughter, who reports that the patient must have been confused yesterday. She has continued to have regular menstrual flow phases on a monthly basis. She has a longstanding history of menorrhagia. She did confirm that she had been diagnosed with "fibroids". Today, she is awake and alert. WBC 50.3. 06/10: PERFORATOR TYPIST input appreciated. WBC 40.4 today. Hemoglobin 8.9 after an addit ional 2 units PRBC yesterday. Platelets 92. Mentating well. Nurse reports that menstrual flow may be abating. Case also discussed with Dr. Garcia in the interim. Darci 2 mutation CML FISH studies pending. Case also discussed with Dr. Hubbard. Of note, LFTs are elevated (no clear pattern, hepatotoxic vs mixed, hepatotoxic/cholestatic). Had speech/swallow evaluation this morning. Was able to tolerate thin liquids and mechanical soft diet. Gram stain of sputum (06/07/2020) isolated Pseudomonas fluorescens/putida group, Klebsiella pneumoniae and Ashlie albicans. Abdominal fluid and ROSALVA drain samples (05/31/2020) isolated E coli and yeast (not Ashlie albicans). She remains on Rocephin and micafungin. Review of systems relevant to events:: Gastrointestinal: Abdominal pain, anorexia Hematologic: Leukocytosis, anemia Genitourinary: Menorrhagia Reason for ICU Addmission:: Tenuous neuro status. May be septic from fungemia. - Medications: Medications reviewed and adjusted accordingly: Yes Physical Exam Vital Signs: Temp Pulse Resp BP Pulse Ox 97.7 F 111 H 22 H 131/87 H 98 06/10/20 04:00 06/10/20 08:00 06/10/20 13:40 06/10/20 13:40 06/10/20 13:40 Intake & Output 06/09/20 06/10/20 06/11/20 06:59 06:59 06:59 Intake Total 1854 2204 1137 Output Total 942 1547 351 Balance 912 657 786 Weight 139.1 kg 148.1 kg Weight/Height Weight 148.1 kg Height 1.73 m General appearance: PRESENT: no acute distress, well-developed, well-nourished Head exam: PRESENT: atraumatic, normocephalic Eye exam: PRESENT: conjunctiva pink, EOMI, PERRLA. ABSENT: scleral icterus Mouth exam: PRESENT: moist, tongue midline, other - Poor dentition Teeth exam: PRESENT: dental caries, poor dentation Neck exam: ABSENT: carotid bruit, JVD, lymphadenopathy, thyromegaly Respiratory exam: PRESENT: clear to auscultation winter. ABSENT: rales, rhonchi, wheezes Cardiovascular exam: PRESENT: RRR. ABSENT: diastolic murmur, rubs, systolic murmur Pulses: PRESENT: normal dorsalis pedis pul GI/Abdominal exam: PRESENT: normal bowel sounds, soft. ABSENT: distended, guarding, mass, organolmegaly, rebound, tenderness Extremities exam: PRESENT: full ROM, pedal edema, +1 edema, +2 edema. ABSENT: calf tenderness, clubbing Musculoskeletal exam: PRESENT: normal inspection. ABSENT: deformity Neurological exam: PRESENT: alert, awake, reflexes normal, CN II-XII grossly intact. ABSENT: motor sensory deficit Psychiatric exam: PRESENT: agitated, anxious Skin exam: PRESENT: dry, intact, warm. ABSENT: cyanosis, rash Tubes/Lines: PRESENT: Other - ROSALVA drain serosanguineous output Laboratory/Radiographs Laboratory Results: 06/10/20 05:47 06/10/20 05:47 06/09/20 06/10/20 06/10/20 12:55 05:47 05:47 WBC RBC Hgb Hct MCV MCH MCHC RDW Plt Count Seg Neutrophils % Sodium 139.8 Potassium 3.8 Chloride 106 Carbon Dioxide 27 Anion Gap 7 BUN 22 H Creatinine 0.61 Est GFR ( Amer) > 60 Glucose 73 L Calcium 8.1 L Phosphorus 3.1 Magnesium 1.8 Cancelled Total Bilirubin 6.3 H AST 112 H Alkaline Phosphatase 180 H Total Protein 4.8 L Albumin 1.8 L Prealbumin 5.3 L Triglycerides 162 H Vitamin B12 > 1000.0 H Folate 7.58 06/10/20 05:47 WBC 40.4 H* RBC 3.11 L Hgb 8.9 L Hct 27.1 L MCV 87 MCH 28.7 MCHC 33.0 RDW 17.1 H Plt Count 92 L Seg Neutrophils % Not Reportable Sodium Potassium Chloride Carbon Dioxide Anion Gap BUN Creatinine Est GFR ( Amer) Glucose Calcium Phosphorus Magnesium Total Bilirubin AST Alkaline Phosphatase Total Protein Albumin Prealbumin Triglycerides Vitamin B12 Folate 06/07/20 06:35 Sputum Gram Stain - Final 06/07/20 06:35 Sputum Sputum Culture - Final Pseudom Fluoresc/Putida Group Klebsiella Pneumoniae C.albicans/C.dubliniensis Normal Becki Absent 05/14/20 05/15/20 06/07/20 15:18 06:45 05:07 Troponin I < 0.012 < 0.012 NT-Pro-B Natriuret Pep 2990 H Impressions: Abdomen Ultrasound 05/07/20 04:47 IMPRESSION: 1. Dilation of the common bile duct again identified measuring 1.2 cm. 2. Hepatic steatosis and hepatomegaly. 3. Prior cholecystectomy. PICC Line Insertion 05/14/20 00:00 IMPRESSION: SUCCESSFUL PLACEMENT OF A 5 FR DUAL LUMEN 42 CM PICC IN THE LEFT BASILIC VEIN. Venous Doppler Study 05/16/20 00:00 IMPRESSION: NO EVIDENCE DVT OR SVT IN EITHER LEG. Hepatobiliary Scan Nuclear Medicine 05/27/20 08:17 IMPRESSION: Prior cholecystectomy. No evidence of bile leak. Vascular Ultrasound 05/28/20 00:00 IMPRESSION: No evidence of portal vein thrombosis. Abdomen CT 05/29/20 00:00 IMPRESSION: 1. Progressive ascites. No focal drainable abscess. Surgical drain remains in place. 2. Worsening lung aeration. WBC Scan Nuclear Medicine 05/30/20 07:00 IMPRESSION: Diffuse uptake in the chest of uncertain etiology, inflammation versus infection. Abdomen/Pelvis CT 06/02/20 00:00 IMPRESSION: Slight interval increase in abdominal ascites without loculated collection. Subhepatic drain remains in place. No definite residual fluid in the gallbladder fossa. Bilateral pleural effusions, slightly increased on the left, with patchy airspace findings in the lung bases bilaterally. Pelvis Ultrasound 06/08/20 00:00 IMPRESSION: Technical limitations. Thickened endometrium. Differential is hyperplasia or carcinoma. Chest X-Ray 06/10/20 05:00 IMPRESSION: Stable perihilar and basilar predominant airspace disease and small bilateral effusions suggestive of pulmonary edema. Superimposed infection is not excluded. All labs, radiographs, diagnostic studies and EKGs were personally reviewed: Yes In addition, reports of radiographic and diagnostic studies were read: Yes Assessment and Plan - Diagnosis (1) Abnormal uterine bleeding Is this a current diagnosis for this admission?: Yes Plan: PERFORATOR TYPIST input (Dr. Sarah Mcqueen) appreciated. Now on Provera 20 mg NG 3 times daily. (2) Abnormal LFTs Is this a current diagnosis for this admission?: Yes Plan: She currently demonstrates a different pattern of abnormalities on her LFTs. Previously, she was primarily cholestatic; however, she now demonstrates a more hepatotoxic or perhaps mixed picture. It is concerning for possible hepatotoxicity related to medication therapy. (3) Leukocytosis Qualifiers: Leukocytosis type: unspecified Qualified Code(s): D72.829 - Elevated white blood cell count, unspecified Is this a current diagnosis for this admission?: Yes Plan: Leukocytosis without bandemia. Suspicious for myelodysplastic process or hematologic malignancy. Consult requested Dr. Garcia for further evaluation and management of leuk ocytosis. Case discussed by phone today. Ferritin 575, iron saturation and TIBC were ordered but apparently not drawn. Darci 2 mutation analysis pending, CML FISH analysis pending Urine culture 05/19/2020: VRE, which was treated with linezolid. Blood cultures 05/19/2020 NG at 5 days. ROSALVA drain cultures 05/30/2020: E. coli, yeast (not Ashlie albicans), treated with Rocephin and micafungin Abdominal fluid 05/31/2020: E. coli, yeast (not Ashlie albicans), treated with Rocephin and micafungin Stool for C. difficile negative x2 after which metronidazole was discontinued. (4) Klebsiella pneumoniae pneumonia Qualifiers: Laterality: left Is this a current diagnosis for this admission?: Yes Plan: On Rocephin based on sensitivities. (5) Normocytic anemia Is this a current diagnosis for this admission?: Yes Plan: Transfused 2 units PRBC (06/08), 2 units PRBC (06/09). (6) Iron deficiency anemia due to chronic blood loss Is this a current diagnosis for this admission?: Yes (7) Obesity (BMI 30.0-34.9) Is this a current diagnosis for this admission?: Yes (8) Biliary stricture Is this a current diagnosis for this admission?: Yes Plan: Case discussed with Dr. Hubbard. Surgery input appreciated. TPN on hold. Start mechanical soft diet. Critical Time Critical Time (minutes): 60 Level of Care: ICU -: 1. The care of a critical patient is a dynamic process. This note is a territory service representative synopsis but static in nature. The timeframe for treatments given in order is not necessarily the actual time these treatments may have been done. 2. This patient requires critical care secondary to ongoing requirements for therapy not offered or safe outside the critical care environment. Transfer to a lower level of care will result in altered life or limb morbidity and mortality. 3. Multidisciplinary rounds completed. 4. ABCDE bundle addressed.
[2020-06-10] MEDS: ONDANSETRON HCL INJ/PF 4 MG/2 ML SDV IV PRN (20:13)
[2020-06-10] MEDS: MORPHINE SULFATE 10 MG/ML INJ IV PRN (20:17)
[2020-06-10] MEDS: METOPROLOL TARTRATE PF/INJ 5 MG/5 ML SDV IV PRN (20:44)
[2020-06-10] MEDS: ASCORBIC ACID 500 MG TABLET PO SCH (22:00)
[2020-06-11] MEDS: ASCORBIC ACID 500 MG TABLET PO SCH ×4 (03:20→21:58)
[2020-06-11 03:36] LABS: HEMATOCRIT 29.9 % (36.0-47.0); HEMOGLOBIN 9.8 g/dL (12.0-15.5); MEAN CORPUSCULAR HEMOGLOBIN 28.8 pg (27.0-33.4); MEAN CORPUSCULAR HGB CONC 32.7 g/dL (32.0-36.0); MEAN CORPUSCULAR VOLUME 88 fl (80-97); PLATELET COUNT 127 10^3/uL (150-450); RED CELL DISTRIBUTION WIDTH 17.4 % (11.5-14.0)
[2020-06-11 03:37] LABS: WHITE BLOOD COUNT 40.8 10^3/uL (4.0-10.5)
[2020-06-11 03:42] LABS: BLOOD UREA NITROGEN 21 mg/dL (7-20); CARBON DIOXIDE 28 mmol/L (22-30); CHLORIDE 108 mmol/L (98-107); GLUCOSE 74 mg/dL (75-110); PHOSPHORUS 4.2 mg/dL (2.5-4.5); POTASSIUM 3.9 mmol/L (3.6-5.0)
[2020-06-11 03:51] LABS: ANION GAP 4 (5-19)
[2020-06-11 03:55] LABS: ABSOLUTE LYMPHOCYTES# (MANUAL) 0.8 10^3/uL (0.5-4.7); BASOPHILS % (MANUAL) 0 % (0-2); EOSINOPHILS % (MANUAL) 0 % (0-6); LYMPHOCYTES % (MANUAL) 2 % (13-45); MONOCYTES % (MANUAL) 5 % (3-13); SEGMENTED NEUTROPHILS % (MAN) 93 % (42-78); TOTAL CELLS COUNTED 100
[2020-06-11 03:57] LABS: ANISOCYTOSIS 1+; OVALOCYTES SLIGHT; PLATELET COMMENT DECREASED; POIKILOCYTOSIS SLIGHT; POLYCHROMASIA SLIGHT; TEAR DROP CELLS SLIGHT; TOXIC GRANULATION SLIGHT
[2020-06-11] MEDS: ONDANSETRON HCL INJ/PF 4 MG/2 ML SDV IV PRN ×2 (07:29→11:47)
[2020-06-11] MEDS: MORPHINE SULFATE 10 MG/ML INJ IV PRN ×3 (07:29→22:13)
[2020-06-11 08:48] LABS: PATH REVIEW PATHOLOGIST REVIEWED
[2020-06-11 08:53] LABS: PATH REVIEW PATHOLOGIST REVIEWED
[2020-06-11] MEDS: THIAMINE HCL 200 MG in NORMAL SALINE 50 ML IV SCH ×2 (10:00→22:34)
[2020-06-11] MEDS: ZINC SULFATE 220 MG CAPSULE PO SCH (11:17)
[2020-06-11] MEDS: CHOLECALCIFEROL (D3) 1,000 UNIT (25 MCG) TABLET PO SCH (11:18)
[2020-06-11] MEDS: FOLIC ACID 1 MG TABLET PO SCH (11:18)
[2020-06-11] MEDS: CEFTRIAXONE 2 GM/D5W RTU 2 GM/50 ML RTUPB IV SCH (11:19)
[2020-06-11] MEDS: PANTOPRAZOLE SODIUM 40 MG VIAL IV SCH (11:19)
[2020-06-11] MEDS: MICAFUNGIN SODIUM 100 MG in NORMAL SALINE 100 ML IV SCH (11:20)
[2020-06-11] MEDS: MEDROXYPROGESTERONE ACET 10 MG TABLET PO SCH ×3 (11:27→19:58)
[2020-06-11] MEDS: NORMAL SALINE 10 ML SDV (SCHEDULED) IV SCH ×2 (11:27→21:58)
[2020-06-11] MEDS: LIDOCAINE 5% (700 MG) TRANSDERMAL ADH..PATCH TP SCH (11:28)
[2020-06-11] MEDS: METOPROLOL TARTRATE PF/INJ 5 MG/5 ML SDV IV PRN (15:18)
[2020-06-11] MEDS: ALBUMIN HUMAN 12.5 GM/50 ML RTUINJ IV SCH ×2 (17:20→18:30)
[2020-06-11] MEDS ORDERED: FUROSEMIDE INJ/PF 40 MG/4 ML SDV IV ONE ×2 (17:30→20:15)
--- NOTE | 2020-06-11 20:55 | PDOC CRITICAL CARE PROG REPORT ---
General Date:: 06/11/20 ICU Day:: 13 Hospital Day:: 36 Resuscitation Status: Full Code Medical Power of Wind Field Service Manager: DaughterJessica Events in the past 12 to 24 Hours:: This 49-year-old -[place] female smoker presented to [facility] emergency department on 05/07 with abdominal pain and decreased appetite. She was found to be dehydrated with abnormal LFTs, suspicious for a cholestatic pattern. With a history of gastric bypass (2003), the patient underwent surgical evaluation by Dr. Hubbard, which included intraoperative liver biopsy and choledochoduodenostomy. She was started on Unasyn/Flagyl postoperatively, and the patient has been through a succession of antimicrobials, including Zosyn, meropenem, linezolid and micafungin. She was transferred to the ICU on 05/29 due to concerns for worsening sepsis. She is afebrile and not requiring any vasopressor support; however, she has a waxing and waning leukocytosis (neutrophilia without bandemia). C. difficile has been checked twice and was found to be negative. 06/08: Case discussed with Dr. Hubbard. WBC count up to 35.2 today. Hemoglobin 6.9. Platelets 63. On linezolid, unclear clinical indication at this point. Nursing staff reports that the patient is having bloody output from the vagina. Patient reports last known menstrual flow phase was 6 years ago. She does report having been informed of "fibroids" and denies any other history of dysfunctional uterine bleeding. 06/09: Overnight, the patient became hypotensive and ashen in appearance. Also, mild lethargy was reported. Hemoglobin 6.95.0. She received 2 units PRBC with subsequent improvement in total status and hemodynamics. Not on pressors. She continues to have menorrhagia. In the interim, I was able to discuss the patient's status with the patient's daughter, who reports that the patient must have been confused yesterday. She has continued to have regular menstrual flow phases on a monthly basis. She has a longstanding history of menorrhagia. She did confirm that she had been diagnosed with "fibroids". Today, she is awake and alert. WBC 50.3. 06/10: HOT MILL OBSERVER input appreciated. WBC 40.4 today. Hemoglobin 8.9 after an additional 2 units PRBC yesterday. Platelets 92. Mentating well. Nurse reports that menstrual flow may be abating. Case also discussed with Dr. Garcia in the interim. Darci 2 mutation CML FISH studies pending. Case also di scussed with Dr. Hubbard. Of note, LFTs are elevated (no clear pattern, hepatotoxic vs mixed, hepatotoxic/cholestatic). Had speech/swallow evaluation this morning. Was able to tolerate thin liquids and mechanical soft diet. Gram stain of sputum (06/07/2020) isolated Pseudomonas fluorescens/putida group, Klebsiella pneumoniae and Ashlie albicans. Abdominal fluid and ROSALVA drain samples (05/31/2020) isolated E coli and yeast (not Ashlie albicans). She remains on Rocephin and micafungin. 06/11: Case discussed with Dr. Hubbard. We will plan on discontinuing micafungin today. WBC 40.4>40.8. On room air. Afebrile. Hemoglobin 9.8. Now on Provera to help control menorrhagia. Mentating well. Off TPN now. Seems to be tolerating p.o. intake (modest). Visibly severely edematous. Still on Rocephin/micafungin. Reason for ICU Addmission:: Tenuous neuro status. May be septic from fungemia. - Medications: Medications reviewed and adjusted accordingly: Yes Physical Exam Vital Signs: Temp Pulse Resp BP Pulse Ox 98.4 F 115 H 16 119/74 97 06/11/20 16:28 06/11/20 08:00 06/11/20 16:01 06/11/20 16:00 06/11/20 16:01 Intake & Output 06/10/20 06/11/20 06/12/20 06:59 06:59 06:59 Intake Total 2204 1189 102 Output Total 1547 1347 350 Balance 474 -129 -027 Weight 148.1 kg 146.6 kg Weight/Height Weight 146.6 kg Height 1.73 m General appearance: PRESENT: no acute distress, well-developed, well-nourished Head exam: PRESENT: atraumatic, normocephalic Eye exam: PRESENT: conjunctiva pink, EOMI, PERRLA. ABSENT: scleral icterus Mouth exam: PRESENT: moist, tongue midline Neck exam: ABSENT: carotid bruit, JVD, lymphadenopathy, thyromegaly Respiratory exam: PRESENT: crackles, unlabored. ABSENT: rales, rhonchi, wheezes Cardiovascular exam: PRESENT: RRR, tachycardia. ABSENT: diastolic murmur, rubs, systolic murmur GI/Abdominal exam: PRESENT: ascites, normal bowel sounds, soft. ABSENT: distended, guarding, mass, organolmegaly, rebound, tenderness Gentrourinary exam: PRESENT: indwelling catheter Extremities exam: PRESENT: full ROM, pedal edema, +2 edema. ABSENT: calf tenderness, clubbing Musculoskeletal exam: PRESENT: normal inspection. ABSENT: deformity Neurological exam: PRESENT: alert, awake, oriented to person, oriented to place, oriented to time, oriented to situation, CN II-XII grossly intact. ABSENT: motor sensory deficit Psychiatric exam: ABSENT: agitated, anxious Skin exam: PRESENT: dry, intact, warm. ABSENT: cyanosis, rash Tubes/Lines: PRESENT: Other - ROSALVA drain with minimal serosanguineous drainage Laboratory/Radiographs Laboratory Results: 06/11/20 03:00 06/11/20 03:00 06/11/20 06/11/20 03:00 03:00 WBC 40.8 H* RBC 3.40 L Hgb 9.8 L Hct 29.9 L MCV 88 MCH 28.8 MCHC 32.7 RDW 17.4 H Plt Count 127 L Seg Neutrophils % Not Reportable Sodium 140.1 Potassium 3.9 Chloride 108 H Carbon Dioxide 28 Anion Gap 4 L BUN 21 H Creatinine 0.59 Est GFR ( Amer) > 60 Glucose 74 L Calcium 8.0 L Phosphorus 4.2 Magnesium 1.8 05/14/20 05/15/20 06/07/20 15:18 06:45 05:07 Troponin I < 0.012 < 0.012 NT-Pro-B Natriuret Pep 2990 H Impressions: Abdomen Ultrasound 05/07/20 04:47 IMPRESSION: 1. Dilation of the common bile duct again identified measuring 1.2 cm. 2. Hepatic steatosis and hepatomegaly. 3. Prior cholecystectomy. PICC Line Insertion 05/14/20 00:00 IMPRESSION: SUCCESSFUL PLACEMENT OF A 5 FR DUAL LUMEN 42 CM PICC IN THE LEFT BASILIC VEIN. Venous Doppler Study 05/16/20 00:00 IMPRESSION: NO EVIDENCE DVT OR SVT IN EITHER LEG. Hepatobiliary Scan Nuclear Medicine 05/27/20 08:17 IMPRESSION: Prior cholecystectomy. No evidence of bile leak. Vascular Ultrasound 05/28/20 00:00 IMPRESSION: No evidence of portal vein thrombosis. Abdomen CT 05/29/20 00:00 IMPRESSION: 1. Progressive ascites. No focal drainable abscess. Surgical drain remains in place. 2. Worsening lung aeration. WBC Scan Nuclear Medicine 05/30/20 07:00 IMPRESSION: Diffuse uptake in the chest of uncertain etiology, inflammation versus infection. Abdomen/Pelvis CT 06/02/20 00:00 IMPRESSION: Slight interval increase in abdominal ascites without loculated collection. Subhepatic drain remains in place. No definite residual fluid in the gallbladder fossa. Bilateral pleural effusions, slightly increased on the left, with patchy airspace findings in the lung bases bilaterally. Pelvis Ultrasound 06/08/20 00:00 IMPRESSION: Technical limitations. Thickened endometrium. Differential is hyperplasia or carcinoma. Chest X-Ray 06/10/20 05:00 IMPRESSION: Stable perihilar and basilar predominant airspace disease and small bilateral effusions suggestive of pulmonary edema. Superimposed infection is not excluded. All labs, radiographs, diagnostic studies and EKGs were personally reviewed: Yes In addition, reports of radiographic and diagnostic studies were read: Yes Assessment and Plan - Diagnosis (1) Leukocytosis Qualifiers: Leukocytosis type: unspecified Qualified Code(s): D72.829 - Elevated white blood cell count, unspecified Is this a current diagnosis for this admission?: Yes Plan: Leukocytosis without bandemia. Suspicious for myelodysplastic process or hematologic malignancy. Consult requested Dr. Garcia for further evaluation and management of leukocytosis. Case discussed by phone today. Ferritin 575, iron saturation and TIBC were ordered but apparently not drawn. Darci 2 mutation analysis pending, CML FISH analysis pending Urine culture 05/19/2020: VRE, which was treated with linezolid. Blood cultures 05/19/2020 NG at 5 days. ROSALVA drain cultures 05/30/2020: E. coli, yeast (not Ashlie albicans), treated with Rocephin and micafungin Abdominal fluid 05/31/2020: E. coli, yeast (not Ashlie albicans), treated with Rocephin and micafungin Stool for C. difficile negative x2 after which metronidazole was discontinued. (2) Klebsiella pneumoniae pneumonia Qualifiers: Laterality: left Is this a current diagnosis for this admission?: Yes Plan: On Rocephin based on sensitivities. (3) Abnormal uterine bleeding Is this a current diagnosis for this admission?: Yes (4) Abnormal LFTs Is this a current diagnosis for this admission?: Yes Plan: Albumin/Lasix. (5) Normocytic anemia Is this a current diagnosis for this admission?: Yes (6) Iron deficiency anemia due to chronic blood loss Is this a current diagnosis for this admission?: Yes (7) Obesity (BMI 30.0-34.9) Is this a current diagnosis for this admission?: Yes Plan: BMI 38.5, status post gastric bypass. Vitamin supplementation. Currently, on TPN. Strongly encourage dietary compliance and lifestyle modification. (8) Biliary stricture Is this a current diagnosis for this admission?: Yes Plan: Case discussed with Dr. Hubbard. Surgery input appreciated. TPN discontinued. On mechanical soft diet. (9) Protein-calorie malnutrition, severe Is this a current diagnosis for this admission?: Yes Plan: Has been on TPN. Now restarting p.o. diet. Critical Time Critical Time (minutes): 60 Level of Care: ICU -: 1. The care of a critical patient is a dynamic process. This note is a outbound call center representative synopsis but static in nature. The timeframe for treatments given in order is not necessarily the actual time these treatments may have been done. 2. This patient requires critical care secondary to ongoing requirements for therapy not offered or safe outside the critical care environment. Transfer to a lower level of care will result in altered life or limb morbidity and mortality. 3. Multidisciplinary rounds completed. 4. ABCDE bundle addressed.
[2020-06-12] MEDS: ASCORBIC ACID 500 MG TABLET PO SCH ×4 (02:00→22:57)
[2020-06-12] MEDS ORDERED: ALBUMIN HUMAN 12.5 GM/50 ML RTUINJ IV ONE (03:00)
[2020-06-12 04:26] LABS: HEMATOCRIT 29.2 % (36.0-47.0); HEMOGLOBIN 9.5 g/dL (12.0-15.5); MEAN CORPUSCULAR HEMOGLOBIN 29.1 pg (27.0-33.4); MEAN CORPUSCULAR HGB CONC 32.6 g/dL (32.0-36.0); MEAN CORPUSCULAR VOLUME 89 fl (80-97); PLATELET COUNT 137 10^3/uL (150-450); RED BLOOD COUNT 3.27 10^6/uL (3.72-5.28); RED CELL DISTRIBUTION WIDTH 18.3 % (11.5-14.0)
[2020-06-12 04:40] LABS: ALBUMIN 2.4 g/dL (3.5-5.0); ALKALINE PHOSPHATASE 202 U/L (38-126); ANION GAP 7 (5-19); ASPARTATE AMINO TRANSFERASE 89 U/L (14-36); BILIRUBIN,DIRECT 6.8 mg/dL (0.0-0.4); BILIRUBIN,TOTAL 8.7 mg/dL (0.2-1.3); BLOOD UREA NITROGEN 21 mg/dL (7-20); CALCIUM 8.1 mg/dL (8.4-10.2); CARBON DIOXIDE 27 mmol/L (22-30); CHLORIDE 108 mmol/L (98-107); GLUCOSE 79 mg/dL (75-110); POTASSIUM 3.6 mmol/L (3.6-5.0)
[2020-06-12 04:50] LABS: ABSOLUTE LYMPHOCYTES# (MANUAL) 1.1 10^3/uL (0.5-4.7); ABSOLUTE MONOCYTES # (MANUAL) 1.9 10^3/uL (0.1-1.4); ANISOCYTOSIS 2+; BASOPHILS % (MANUAL) 0 % (0-2); EOSINOPHILS % (MANUAL) 0 % (0-6); LYMPHOCYTES % (MANUAL) 3 % (13-45); MONOCYTES % (MANUAL) 5 % (3-13); POIKILOCYTOSIS 1+; SEGMENTED NEUTROPHILS % (MAN) 92 % (42-78); TOTAL CELLS COUNTED 100
[2020-06-12 04:51] LABS: PLATELET COMMENT DECREASED; POLYCHROMASIA SLIGHT; STOMATOCYTES SLIGHT; TARGET CELLS SLIGHT; WHITE BLOOD COUNT 37.5 10^3/uL (4.0-10.5)
[2020-06-12] MEDS ORDERED: FUROSEMIDE INJ/PF 40 MG/4 ML SDV IV ONE ×2 (05:32→12:04)
[2020-06-12] MEDS: MORPHINE SULFATE 10 MG/ML INJ IV PRN ×3 (06:07→20:21)
[2020-06-12] MEDS: METOPROLOL TARTRATE PF/INJ 5 MG/5 ML SDV IV PRN (06:32)
[2020-06-12] MEDS ORDERED: CYANOCOBALAMIN (VITAMIN B-12) INJ 1000 MCG/1 ML VIAL IM SCH (10:00)
[2020-06-12] MEDS: LIDOCAINE 5% (700 MG) TRANSDERMAL ADH..PATCH TP SCH (10:00)
--- NOTE | 2020-06-12 10:50 | PDOC PROGRESS REPORT ---
Subjective Progress Note for:: 06/12/20 Subjective:: sl more alert Reason For Visit: BILIARY OBSTRUCTION S/P SURGERY Physical Exam Vital Signs: Temp Pulse Resp BP Pulse Ox 98.1 F 131 H 22 H 132/81 H 99 06/12/20 03:53 06/11/20 20:00 06/12/20 06:01 06/12/20 06:01 06/12/20 06:01 Intake & Output 06/11/20 06/12/20 06/13/20 06:59 06:59 06:59 Intake Total 1189 202 Output Total 1347 1979 Balance -158 -1778 Weight 146.6 kg 145.3 kg General appearance: PRESENT: no acute distress Head exam: PRESENT: normocephalic Eye exam: PRESENT: EOMI, PERRLA, scleral icterus Ear exam: PRESENT: normal external ear exam Mouth exam: PRESENT: moist Neck exam: PRESENT: full ROM Respiratory exam: PRESENT: clear to auscultation winter Breast: PRESENT: Normal GI/Abdominal exam: PRESENT: soft, other - deisy drain serous Rectal exam: PRESENT: deferred Extremities exam: PRESENT: full ROM Musculoskeletal exam: PRESENT: full ROM Neurological exam: PRESENT: alert, awake, oriented to person Psychiatric exam: PRESENT: appropriate affect Skin exam: PRESENT: dry Results Laboratory Results: 06/12/20 04:05 06/12/20 04:05 06/12/20 06/12/20 04:05 04:05 WBC 37.5 H* RBC 3.27 L Hgb 9.5 L Hct 29.2 L MCV 89 MCH 29.1 MCHC 32.6 RDW 18.3 H Plt Count 137 L Seg Neutrophils % Not Reportable Sodium 142.3 Potassium 3.6 Chloride 108 H Carbon Dioxide 27 Anion Gap 7 BUN 21 H Creatinine 0.70 Est GFR ( Amer) > 60 Glucose 79 Calcium 8.1 L Magnesium 1.7 Total Bilirubin 8.7 H AST 89 H Alkaline Phosphatase 202 H Total Protein 6.0 L Albumin 2.4 L 06/07/20 08:59 Blood Blood Culture - Final NO GROWTH IN 5 DAYS 06/07/20 08:15 Blood Blood Culture - Final NO GROWTH IN 5 DAYS 05/14/20 05/15/20 06/07/20 15:18 06:45 05:07 Troponin I < 0.012 < 0.012 NT-Pro-B Natriuret Pep 2990 H Impressions: Abdomen Ultrasound 05/07/20 04:47 IMPRESSION: 1. Dilation of the common bile duct again identified measuring 1.2 cm. 2. Hepatic steatosis and hepatomegaly. 3. Prior cholecystectomy. PICC Line Insertion 05/14/20 00:00 IMPRESSION: SUCCESSFUL PLACEMENT OF A 5 FR DUAL LUMEN 42 CM PICC IN THE LEFT BASILIC VEIN. Venous Doppler Study 05/16/20 00:00 IMPRESSION: NO EVIDENCE DVT OR SVT IN EITHER LEG. Hepatobiliary Scan Nuclear Medicine 05/27/20 08:17 IMPRESSION: Prior cholecystectomy. No evidence of bile leak. Vascular Ultrasound 05/28/20 00:00 IMPRESSION: No evidence of portal vein thrombosis. Abdomen CT 05/29/20 00:00 IMPRESSION: 1. Progressive ascites. No focal drainable abscess. Surgical drain remains in place. 2. Worsening lung aeration. WBC Scan Nuclear Medicine 05/30/20 07:00 IMPRESSION: Diffuse uptake in the chest of uncertain etiology, inflammation versus infection. Abdomen/Pelvis CT 06/02/20 00:00 IMPRESSION: Slight interval increase in abdominal ascites without loculated collection. Subhepatic drain remains in place. No definite residual fluid in the gallbladder fossa. Bilateral pleural effusions, slightly increased on the left, with patchy airspace findings in the lung bases bilaterally. Pelvis Ultrasound 06/08/20 00:00 IMPRESSION: Technical limitations. Thickened endometrium. Differential is hyperplasia or carcinoma. Chest X-Ray 06/10/20 05:00 IMPRESSION: Stable perihilar and basilar predominant airspace disease and small bilateral effusions suggestive of pulmonary edema. Superimposed infection is not excluded. Assessment & Plan - Diagnosis (1) Anemia Qualifiers: Anemia type: iron deficiency Iron deficiency anemia type: unspecified iron deficiency Qualified Code(s): D50.9 - Iron deficiency anemia, unspecified Is this a current diagnosis for this admission?: Yes - Time Anticipated Discharge Disposition: [facility] Machine Operator Care Facility Anticipated Discharge Timeframe: unk - Plan Summary Plan Summary: pt appears sl improved more alter wbc trending down bi manager w/u in progress.
[2020-06-12] MEDS: FOLIC ACID 1 MG TABLET PO SCH (12:09)
[2020-06-12] MEDS: CHOLECALCIFEROL (D3) 1,000 UNIT (25 MCG) TABLET PO SCH (12:09)
[2020-06-12] MEDS: THIAMINE HCL 200 MG in NORMAL SALINE 50 ML IV SCH ×2 (12:10→23:39)
[2020-06-12] MEDS: PANTOPRAZOLE SODIUM 40 MG VIAL IV SCH (12:12)
[2020-06-12] MEDS: ONDANSETRON HCL INJ/PF 4 MG/2 ML SDV IV PRN ×2 (12:14→20:23)
[2020-06-12] MEDS: ALBUMIN HUMAN 12.5 GM/50 ML RTUINJ IV SCH ×2 (12:40→15:19)
--- NOTE | 2020-06-12 13:54 | PDOC CRITICAL CARE PROG REPORT ---
General Date:: 06/12/20 ICU Day:: 14 Hospital Day:: 37 Resuscitation Status: Full Code Medical Power of Section Leader: DaughterJessica Events in the past 12 to 24 Hours:: This 49-year-old -[place] female smoker presented to [facility] emergency department on 05/07 with abdominal pain and decreased appetite. She was found to be dehydrated with abnormal LFTs, suspicious for a cholestatic pattern. With a history of gastric bypass (2003), the patient underwent surgical evaluation by Dr. Hubbard, which included intraoperative liver biopsy and choledochoduodenostomy. She was started on Unasyn/Flagyl postoperatively, and the patient has been through a succession of antimicrobials, including Zosyn, meropenem, linezolid and micafungin. She was transferred to the ICU on 05/29 due to concerns for worsening sepsis. She is afebrile and not requiring any vasopressor support; however, she has a waxing and waning leukocytosis (neutrophilia without bandemia). C. difficile has been checked twice and was found to be negative. 06/08: Case discussed with Dr. Hubbard. WBC count up to 35.2 today. Hemoglobin 6.9. Platelets 63. On linezolid, unclear clinical indication at this point. Nursing staff reports that the patient is having bloody output from the vagina. Patient reports last known menstrual flow phase was 6 years ago. She does report having been informed of "fibroids" and denies any other history of dysfunctional uterine bleeding. 06/09: Overnight, the patient became hypotensive and ashen in appearance. Also, mild lethargy was reported. Hemoglobin 6.95.0. She received 2 units PRBC with subsequent improvement in total status and hemodynamics. Not on pressors. She continues to have menorrhagia. In the interim, I was able to discuss the patient's status with the patient's daughter, who reports that the patient must have been confused yesterday. She has continued to have regular menstrual flow phases on a monthly basis. She has a longstanding history of menorrhagia. She did confirm that she had been diagnosed with "fibroids". Today, she is awake and alert. WBC 50.3. 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 WBC 40.4 today. Hemoglobin 8.9 after an additional 2 units PRBC yesterday. Platelets 92. Mentating well. Nurse reports that menstrual flow may be abating. Case also discussed with Dr. Garcia in the interim. Darci 2 mutation CML FISH studies pending. Case also di scussed with Dr. Hubbard. Of note, LFTs are elevated (no clear pattern, hepatotoxic vs mixed, hepatotoxic/cholestatic). Had speech/swallow evaluation this morning. Was able to tolerate thin liquids and mechanical soft diet. Gram stain of sputum (06/07/2020) isolated Pseudomonas fluorescens/putida group, Klebsiella pneumoniae and Ashlie albicans. Abdominal fluid and ROSALVA drain samples (05/31/2020) isolated E coli and yeast (not Ashlie albicans). She remains on Rocephin and micafungin. 06/11: Case discussed with Dr. Hubbard. We will plan on discontinuing micafungin today. WBC 40.4>40.8. On room air. Afebrile. Hemoglobin 9.8. Now on Provera to help control menorrhagia. Mentating well. Off TPN now. Seems to be tolerating p.o. intake (modest). Visibly severely edematous. Still on Rocephin/micafungin. 06/12: WBC 40.837.5. Getting albumin/Lasix "push pull". On 4 LPM via nasal cannula, SPO2 99%. Afebrile. Taking well. Still on Rocephin. Review of systems relevant to events:: Gastrointestinal: Cholestasis, status post choledochoduodenostomy. Abdominal sepsis. Protein calorie malnutrition. Hematologic: Leukocytosis. Acute on chronic anemia. Thrombocytopenia. Genitourinary: Menorrhagia. Dysfunctional uterine bleeding. Reason for ICU Addmission:: Tenuous neuro status. May be septic from fungemia. - Medications: Medications reviewed and adjusted accordingly: Yes Physical Exam Vital Signs: Temp Pulse Resp BP Pulse Ox 98.1 F 131 H 22 H 132/81 H 99 06/12/20 03:53 06/11/20 20:00 06/12/20 06:01 06/12/20 06:01 06/12/20 06:01 Intake & Output 06/11/20 06/12/20 06/13/20 06:59 06:59 06:59 Intake Total 1189 254 Output Total 1347 1979 Balance -158 -1726 Weight 146.6 kg 145.3 kg Weight/Height Weight 145.3 kg Height 1.73 m General appearance: PRESENT: no acute distress, obese, well-developed, well- nourished Head exam: PRESENT: atraumatic, normocephalic Eye exam: PRESENT: conjunctiva pink, EOMI, PERRLA. ABSENT: scleral icterus Mouth exam: PRESENT: moist, tongue midline Neck exam: ABSENT: carotid bruit, JVD, lymphadenopathy, thyromegaly Respiratory exam: PRESENT: crackles, unlabored. ABSENT: rhonchi, wheezes Cardiovascular exam: PRESENT: RRR, tachycardia. ABSENT: diastolic murmur, rubs, systolic murmur GI/Abdominal exam: PRESENT: normal bowel sounds, soft, other - ROSALVA drain with serosanguineous drainage. ABSENT: distended, guarding, mass, organolmegaly, rebound, tenderness Extremities exam: PRESENT: full ROM, pedal edema. ABSENT: calf tenderness, clubbing Musculoskeletal exam: PRESENT: normal inspection. ABSENT: deformity Neurological exam: PRESENT: alert, awake, oriented to person, oriented to place, oriented to time, oriented to situation, CN II-XII grossly intact. ABSENT: motor sensory deficit Psychiatric exam: ABSENT: agitated, anxious Skin exam: PRESENT: dry, intact, warm. ABSENT: cyanosis, rash Tubes/Lines: PRESENT: Other - ROSALVA drain Laboratory/Radiographs Laboratory Results: 06/12/20 04:05 06/12/20 04:05 06/12/20 06/12/20 04:05 04:05 WBC 37.5 H* RBC 3.27 L Hgb 9.5 L Hct 29.2 L MCV 89 MCH 29.1 MCHC 32.6 RDW 18.3 H Plt Count 137 L Seg Neutrophils % Not Reportable Sodium 142.3 Potassium 3.6 Chloride 108 H Carbon Dioxide 27 Anion Gap 7 BUN 21 H Creatinine 0.70 Est GFR ( Amer) > 60 Glucose 79 Calcium 8.1 L Magnesium 1.7 Total Bilirubin 8.7 H AST 89 H Alkaline Phosphatase 202 H Total Protein 6.0 L Albumin 2.4 L 06/07/20 08:59 Blood Blood Culture - Final NO GROWTH IN 5 DAYS 06/07/20 08:15 Blood Blood Culture - Final NO GROWTH IN 5 DAYS 05/14/20 05/15/20 06/07/20 15:18 06:45 05:07 Troponin I < 0.012 < 0.012 NT-Pro-B Natriuret Pep 2990 H Impressions: Abdomen Ultrasound 05/07/20 04:47 IMPRESSION: 1. Dilation of the common bile duct again identified measuring 1.2 cm. 2. Hepatic steatosis and hepatomegaly. 3. Prior cholecystectomy. PICC Line Insertion 05/14/20 00:00 IMPRESSION: SUCCESSFUL PLACEMENT OF A 5 FR DUAL LUMEN 42 CM PICC IN THE LEFT BASILIC VEIN. Venous Doppler Study 05/16/20 00:00 IMPRESSION: NO EVIDENCE DVT OR SVT IN EITHER LEG. Hepatobiliary Scan Nuclear Medicine 05/27/20 08:17 IMPRESSION: Prior cholecystectomy. No evidence of bile leak. Vascular Ultrasound 05/28/20 00:00 IMPRESSION: No evidence of portal vein thrombosis. Abdomen CT 05/29/20 00:00 IMPRESSION: 1. Progressive ascites. No focal drainable abscess. Surgical drain remains in place. 2. Worsening lung aeration. WBC Scan Nuclear Medicine 05/30/20 07:00 IMPRESSION: Diffuse uptake in the chest of uncertain etiology, inflammation versus infection. Abdomen/Pelvis CT 06/02/20 00:00 IMPRESSION: Slight interval increase in abdominal ascites without loculated collection. Subhepatic drain remains in place. No definite residual fluid in the gallbladder fossa. Bilateral pleural effusions, slightly increased on the left, with patchy airspace findings in the lung bases bilaterally. Pelvis Ultrasound 06/08/20 00:00 IMPRESSION: Technical limitations. Thickened endometrium. Differential is hyperplasia or carcinoma. Chest X-Ray 06/10/20 05:00 IMPRESSION: Stable perihilar and basilar predominant airspace disease and small bilateral effusions suggestive of pulmonary edema. Superimposed infection is not excluded. All labs, radiographs, diagnostic studies and EKGs were personally reviewed: Yes In addition, reports of radiographic and diagnostic studies were read: Yes Assessment and Plan - Diagnosis (1) Leukocytosis Qualifiers: Leukocytosis type: unspecified Qualified Code(s): D72.829 - Elevated white blood cell count, unspecified Is this a current diagnosis for this admission?: Yes Plan: Leukocytosis without bandemia. Suspicious for myelodysplastic process or hematologic malignancy. Consult requested Dr. Garcia for further evaluation and management of leuk ocytosis. Ferritin 575, iron saturation and TIBC were ordered but apparently not drawn. Jak2 mutation analysis pending, CML FISH analysis pending Urine culture 05/19/2020: VRE, which was treated with linezolid. Blood cultures 05/19/2020 NG at 5 days. ROSALVA drain cultures 05/30/2020: E. coli, yeast (not Ashlie albicans), treated with Rocephin and micafungin Abdominal fluid 05/31/2020: E. coli, yeast (not Ashlie albicans), treated with Rocephin and micafungin Stool for C. difficile negative x2 after which metronidazole was discontinued. (2) Klebsiella pneumoniae pneumonia Qualifiers: Laterality: left Is this a current diagnosis for this admission?: Yes Plan: On Rocephin based on sensitivities. (3) Abnormal uterine bleeding Is this a current diagnosis for this admission?: Yes Plan: Dr. Harrell help appreciated. (4) Abnormal LFTs Is this a current diagnosis for this admission?: Yes Plan: Albumin/Lasix again today. (5) Normocytic anemia Is this a current diagnosis for this admission?: Yes (6) Iron deficiency anemia due to chronic blood loss Is this a current diagnosis for this admission?: Yes (7) Obesity (BMI 30.0-34.9) Is this a current diagnosis for this admission?: Yes (8) Biliary stricture Is this a current diagnosis for this admission?: Yes (9) Protein-calorie malnutrition, severe Is this a current diagnosis for this admission?: Yes Plan: Has been on TPN. Now restarting p.o. diet. Plan Summary: OK to transfer to [facility] from pulmonary/critical care standpoint. Critical Time Critical Time (minutes): 45 Level of Care: ICU -: 1. The care of a critical patient is a dynamic process. This note is a customer sales representative synopsis but static in nature. The timeframe for treatments given in order is not necessarily the actual time these treatments may have been done. 2. This patient requires critical care secondary to ongoing requirements for therapy not offered or safe outside the critical care environment. Transfer to a lower level of care will result in altered life or limb morbidity and mortality. 3. Multidisciplinary rounds completed. 4. ABCDE bundle addressed.
[2020-06-12] MEDS: ZINC SULFATE 220 MG CAPSULE PO SCH (15:01)
[2020-06-12] MEDS: MEDROXYPROGESTERONE ACET 10 MG TABLET PO SCH ×3 (15:01→18:23)
[2020-06-12] MEDS: NORMAL SALINE 10 ML SDV (SCHEDULED) IV SCH ×2 (15:02→22:57)
[2020-06-12] MEDS: CEFTRIAXONE 2 GM/D5W RTU 2 GM/50 ML RTUPB IV SCH (16:00)
[2020-06-12] MEDS ORDERED: FUROSEMIDE INJ/PF 40 MG/4 ML SDV ONE (16:23)
[2020-06-12] MEDS ORDERED: THIAMINE HCL INJ 200 MG/2 ML VIAL ONE (23:14)
[2020-06-13] MEDS: MORPHINE SULFATE 10 MG/ML INJ IV PRN ×4 (02:36→19:40)
[2020-06-13] MEDS: ASCORBIC ACID 500 MG TABLET PO SCH ×4 (04:06→20:45)
[2020-06-13] MEDS: METOPROLOL TARTRATE PF/INJ 5 MG/5 ML SDV IV PRN (04:09)
--- NOTE | 2020-06-13 09:52 | PDOC PROGRESS REPORT ---
Subjective Progress Note for:: 06/13/20 Subjective:: 49-year-old -Stateless female smoker presented to [facility] emergency department on 05/07 with abdominal pain and decreased appetite. She was found to be dehydrated with abnormal LFTs, suspicious for a cholestatic pattern. With a history of gastric bypass (2003), the patient underwent surgical evaluation by Dr. Hubbard, which included intraoperative liver biopsy and choledochoduodenostomy. She was started on Unasyn/Flagyl postoperatively, and the patient has been through a succession of antimicrobials, including Zosyn, meropenem, linezolid and micafungin. She was transferred to the ICU on 05/29 due to concerns for worsening sepsis. She is afebrile and not requiring any vasopressor support; however, she has a waxing and waning leukocytosis (neutrophilia without bandemia). C. difficile has been checked twice and was found to be negative. 06/08: Case discussed with Dr. Hubbard. WBC count up to 35.2 today. Hemoglobin 6.9. Platelets 63. On linezolid, unclear clinical indication at this point. Nursing staff reports that the patient is having bloody output from the vagina. Patient reports last known menstrual flow phase was 6 years ago. She does report having been informed of "fibroids" and denies any other history of dysf unctional uterine bleeding. 06/09: Overnight, the patient became hypotensive and ashen in appearance. Also, mild lethargy was reported. Hemoglobin 6.95.0. She received 2 units PRBC with subsequent improvement in total status and hemodynamics. Not on pressors. She continues to have menorrhagia. In the interim, I was able to discuss the patient's status with the patient's daughter, who reports that the patient must have been confused yesterday. She has continued to have regular menstrual flow phases on a monthly basis. She has a longstanding history of menorrhagia. She did confirm that she had been diagnosed with "fibroids". Today, she is awake and alert. WBC 50.3. 06/10: ACADEMIC COUNSELOR input appreciated. WBC 40.4 today. Hemoglobin 8.9 after an additional 2 units PRBC yesterday. Platelets 92. Mentating well. Nurse reports that menstrual flow may be abating. Case also discussed with Dr. Jayaram in the interim. Darci 2 mutation CML FISH studies pending. Case also discussed with Dr. Hubbard. Of note, LFTs are elevated (no clear pattern, hepatotoxic vs mixed, hepatotoxic/cholestatic). Had speech/swallow evaluation this morning. Was able to tolerate thin liquids and mechanical soft diet. Gram stain of sputum (06/07/2020) isolated Pseudomonas fluorescens/putida group, Klebsiella pneumoniae and Ashlie albicans. Abdominal fluid and ROSALVA drain samples (05/31/2020) isolated E coli and yeast (not Ashlie albicans). She remains on Rocephin and micafungin. 06/11: Case discussed with Dr. Hubbard. We will plan on discontinuing micafungin today. WBC 40.4>40.8. On room air. Afebrile. Hemoglobin 9.8. Now on Provera to help control menorrhagia. Mentating well. Off TPN now. Seems to be tolerating p.o. intake (modest). Visibly severely edematous. Still on Rocephin/micafungin. 06/12: WBC 40.837.5. Getting albumin/Lasix "push pull". On 4 LPM via nasal cannula, SPO2 99%. Afebrile. Taking well. Still on Rocephin. 06/1327-27-exsn-old female in the hospital for more than a mild came in on with abdominal pain and a decreased appetite. Found to have abnormal LFTs suspicion for cholestatic pattern. Patient has a prior history of gastric bypass in 2003. Consultation with Dr. Hubbard was done and that the patient underwent intraoperative liver biopsy and choledocho duodenostomy. No gallstones were found no obstruction was found. Patient was started on IV Unasyn and Flagyl postoperatively. Patient is on multiple antibiotics including Zosyn, meropenem, linezolid, micafungin. Patient was moved to ICU on 729 because of worsening sepsis. Patient has waxing and waning leukocytosis latest WBC count is 37,500. C. difficile was done which was negative during the hospital stay. At this time linozelide is discontinued ..WBC count is 37,500 today's labs are pending. Discussed the case with Dr. Hubbard his recommendation is to start on TPN, give IV albumin, IV Lasix, physical therapy. Those recommendations will be implemented. As per pharmacy recommendations the plan is to continue Protonix because patient is going to get famotidine with TP N. Reason For Visit: BILIARY OBSTRUCTION S/P SURGERY Physical Exam Vital Signs: Temp Pulse Resp BP Pulse Ox 97.3 F 118 H 22 H 143/92 H 91 L 06/13/20 07:38 06/13/20 07:38 06/13/20 07:38 06/13/20 07:38 06/13/20 07:38 Intake & Output 06/12/20 06/13/20 06/14/20 06:59 06:59 06:59 Intake Total 254 232 Output Total 1980 0585 Balance -1633 -9197 Weight 145.3 kg 128.7 kg General appearance: PRESENT: mild distress, obese Head exam: PRESENT: atraumatic Eye exam: PRESENT: PERRLA Mouth exam: PRESENT: laceration Teeth exam: PRESENT: poor dentation Neck exam: ABSENT: carotid bruit, JVD, lymphadenopathy, thyromegaly Respiratory exam: PRESENT: decreased breath sounds Pulses: PRESENT: normal dorsalis pedis pul GI/Abdominal exam: PRESENT: normal bowel sounds, soft, other - Patient has surgical drain present with slightly bilious liquid present.. ABSENT: distended, guarding, mass, organolmegaly, rebound, tenderness Rectal exam: PRESENT: deferred Extremities exam: PRESENT: full ROM, +2 edema. ABSENT: calf tenderness, clubbing, pedal edema Neurological exam: PRESENT: alert, awake, oriented to person, oriented to place, oriented to time, oriented to situation, CN II-XII grossly intact. ABSENT: motor sensory deficit Psychiatric exam: PRESENT: appropriate affect, normal mood. ABSENT: homicidal ideation, suicidal ideation Results Laboratory Results: 06/12/20 04:05 06/12/20 04:05 06/07/20 08:59 Blood Blood Culture - Final NO GROWTH IN 5 DAYS 06/07/20 08:15 Blood Blood Culture - Final NO GROWTH IN 5 DAYS 05/14/20 05/15/20 06/07/20 15:18 06:45 05:07 Troponin I < 0.012 < 0.012 NT-Pro-B Natriuret Pep 2990 H Impressions: Abdomen Ultrasound 05/07/20 04:47 IMPRESSION: 1. Dilation of the common bile duct again identified measuring 1.2 cm. 2. Hepatic steatosis and hepatomegaly. 3. Prior cholecystectomy. PICC Line Insertion 05/14/20 00:00 IMPRESSION: SUCCESSFUL PLACEMENT OF A 5 FR DUAL LUMEN 42 CM PICC IN THE LEFT BASILIC VEIN. Venous Doppler Study 05/16/20 00:00 IMPRESSION: NO EVIDENCE DVT OR SVT IN EITHER LEG. Hepatobiliary Scan Nuclear Medicine 05/27/20 08:17 IMPRESSION: Prior cholecystectomy. No evidence of bile leak. Vascular Ultrasound 05/28/20 00:00 IMPRESSION: No evidence of portal vein thrombosis. Abdomen CT 05/29/20 00:00 IMPRESSION: 1. Progressive ascites. No focal drainable abscess. Surgical drain remains in place. 2. Worsening lung aeration. WBC Scan Nuclear Medicine 05/30/20 07:00 IMPRESSION: Diffuse uptake in the chest of uncertain etiology, inflammation versus infection. Abdomen/Pelvis CT 06/02/20 00:00 IMPRESSION: Slight interval increase in abdominal ascites without loculated collection. Subhepatic drain remains in place. No definite residual fluid in the gallbladder fossa. Bilateral pleural effusions, slightly increased on the left, with patchy airspace findings in the lung bases bilaterally. Pelvis Ultrasound 06/08/20 00:00 IMPRESSION: Technical limitations. Thickened endometrium. Differential is hyperplasia or carcinoma. Chest X-Ray 06/10/20 05:00 IMPRESSION: Stable perihilar and basilar predominant airspace disease and small bilateral effusions suggestive of pulmonary edema. Superimposed infection is not excluded. Assessment and Plan - Diagnosis (1) Leukocytosis Qualifiers: Leukocytosis type: unspecified Qualified Code(s): D72.829 - Elevated white blood cell count, unspecified Is this a current diagnosis for this admission?: Yes Plan: Leukocytosis without bandemia. Suspicious for myelodysplastic process or hematologic malignancy. Consult requested Dr. Garcia for further evaluation and management of leukocytosis. Ferritin 575, iron saturation and TIBC were ordered but apparently not drawn. Jak2 mutation analysis pending, CML FISH analysis pending Urine culture 05/19/2020: VRE, which was treated with linezolid. Blood cultures 05/19/2020 NG at 5 days. ROSALVA drain cultures 05/30/2020: E. coli, yeast (not Ashlie albicans), treated with Rocephin and micafungin Abdominal fluid 05/31/2020: E. coli, yeast (not Ashlie albicans), treated with Rocephin and micafungin Stool for C. difficile negative x2 after which metronidazole was discontinued. 06/13/2020-patient is afebrile. Latest WBC count is 37,500. Today's labs are pending. Patient is presently on IV ceftriaxone plan is to continue the antibiotic therapy at this time. (2) Klebsiella pneumoniae pneumonia Qualifiers: Laterality: left Is this a current diagnosis for this admission?: Yes Plan: On Rocephin based on sensitivities. (3) Abnormal uterine bleeding Is this a current diagnosis for this admission?: Yes Plan: Dr. Harrell help appreciated. As per ACADEMIC COUNSELOR patient is receiving Provera 20 mg p.o. 3 times daily. Plan is to switch the dose to 20 mg daily after 1 week of therapy. Plan is also make arrangements for outpatient endometrial biopsy. (4) Abnormal LFTs Is this a current diagnosis for this admission?: Yes Plan: Albumin/Lasix again today. 06/13/2020-patient looks edematous with a 2+ lower extremity edema started on Lasix 40 mg p.o. daily and started on albumin today. (5) Biliary stricture Is this a current diagnosis for this admission?: Yes Plan: Case discussed with Dr. Hubbard. Surgery input appreciated. TPN discontinued. On mechanical soft diet. 06/13/2028 to start the patient back on TPN as per Dr. Hubbard's recommendations. (6) Protein-calorie malnutrition, severe Is this a current diagnosis for this admission?: Yes Plan: Has been on TPN. Now restarting p.o. diet. - Time Anticipated Discharge Disposition: Shelter Facility Anticipated Discharge Timeframe: within 72 hours
[2020-06-13] MEDS ORDERED: DEXTROSE 40% GEL 15 GM TUBE X 2 PO PRN (10:00)
[2020-06-13] MEDS ORDERED: DEXTROSE 10%-WATER 1,000 ML IV PRN (10:00)
[2020-06-13] MEDS ORDERED: DEXTROSE 40% GEL 15 GM TUBE PO PRN (10:00)
[2020-06-13] MEDS ORDERED: DEXTROSE 50%-WATER SYRINGE 12.5 GM/25 ML DOSE IV PRN (10:00)
[2020-06-13] MEDS ORDERED: GLUCAGON,HUMAN RECOMB 1 MG INJ IM PRN (10:00)
[2020-06-13] MEDS ORDERED: DEXTROSE 50%-WATER SYRINGE 25 GM/50 ML DOSE IV PRN (10:00)
[2020-06-13 11:35] LABS: HEMATOCRIT 31.4 % (36.0-47.0); HEMOGLOBIN 9.9 g/dL (12.0-15.5); MEAN CORPUSCULAR HEMOGLOBIN 28.7 pg (27.0-33.4); MEAN CORPUSCULAR HGB CONC 31.4 g/dL (32.0-36.0); MEAN CORPUSCULAR VOLUME 91 fl (80-97); PLATELET COUNT 162 10^3/uL (150-450); RED BLOOD COUNT 3.43 10^6/uL (3.72-5.28); RED CELL DISTRIBUTION WIDTH 19.5 % (11.5-14.0)
[2020-06-13 11:55] LABS: ALBUMIN 2.6 g/dL (3.5-5.0); ALKALINE PHOSPHATASE 184 U/L (38-126); ANION GAP 7 (5-19); ASPARTATE AMINO TRANSFERASE 81 U/L (14-36); BILIRUBIN,DIRECT 8.1 mg/dL (0.0-0.4); BILIRUBIN,TOTAL 10.1 mg/dL (0.2-1.3); BLOOD UREA NITROGEN 17 mg/dL (7-20); CALCIUM 8.6 mg/dL (8.4-10.2); CARBON DIOXIDE 29 mmol/L (22-30); CHLORIDE 108 mmol/L (98-107); GLUCOSE 82 mg/dL (75-110); POTASSIUM 3.3 mmol/L (3.6-5.0); TOTAL PROTEIN 6.6 g/dL (6.3-8.2)
[2020-06-13 12:07] LABS: WHITE BLOOD COUNT 35.7 10^3/uL (4.0-10.5)
[2020-06-13 12:10] LABS: ABSOLUTE LYMPHOCYTES# (MANUAL) 1.1 10^3/uL (0.5-4.7); ABSOLUTE MONOCYTES # (MANUAL) 1.4 10^3/uL (0.1-1.4); BASOPHILS % (MANUAL) 0 % (0-2); EOSINOPHILS % (MANUAL) 0 % (0-6); LYMPHOCYTES % (MANUAL) 3 % (13-45); MONOCYTES % (MANUAL) 4 % (3-13); SEGMENTED NEUTROPHILS % (MAN) 93 % (42-78); TOTAL CELLS COUNTED 100
[2020-06-13 12:11] LABS: ANISOCYTOSIS 2+; OVALOCYTES SLIGHT; TARGET CELLS SLIGHT; TOXIC VACUOLATION PRESENT
[2020-06-13 12:13] LABS: PLATELET COMMENT ADEQUATE
[2020-06-13] MEDS: ALBUMIN HUMAN 12.5 GM/50 ML RTUINJ IV SCH ×2 (12:39→13:40)
[2020-06-13] MEDS: FUROSEMIDE 40 MG TABLET PO SCH (12:44)
[2020-06-13] MEDS: FOLIC ACID 1 MG TABLET PO SCH (12:44)
[2020-06-13] MEDS: LIDOCAINE 5% (700 MG) TRANSDERMAL ADH..PATCH TP SCH (12:45)
[2020-06-13] MEDS: CEFTRIAXONE 2 GM/D5W RTU 2 GM/50 ML RTUPB IV SCH (12:45)
[2020-06-13] MEDS: MEDROXYPROGESTERONE ACET 10 MG TABLET PO SCH ×3 (12:45→17:15)
[2020-06-13] MEDS: NORMAL SALINE 10 ML SDV (SCHEDULED) IV SCH ×2 (12:45→21:32)
[2020-06-13] MEDS: THIAMINE HCL 200 MG in NORMAL SALINE 50 ML IV SCH ×2 (12:46→21:30)
[2020-06-13] MEDS: CHOLECALCIFEROL (D3) 1,000 UNIT (25 MCG) TABLET PO SCH (12:46)
[2020-06-13] MEDS: ZINC SULFATE 220 MG CAPSULE PO SCH (12:47)
[2020-06-13] MEDS: FAT EMULSIONS 250 ML IV SCH (13:41)
[2020-06-13] MEDS: INSULIN REG, HUMAN 100 UNIT/ML 3 ML VIAL (PYX) SUBCUT SCH ×2 (14:00→18:13)
[2020-06-13] MEDS ORDERED: PANTOPRAZOLE SODIUM 40 MG TABLET.DR PO SCH (17:00)
[2020-06-13] MEDS: AMINO ACIDS 5 %/DEXTROSE 20 % 1,000 ML IV PRN (18:23)
--- NOTE | 2020-06-13 18:56 | RADIOLOGY REPORT (SQ) ---
EXAM DESCRIPTION: VENOUS UNILATERAL UPPER IMAGES COMPLETED DATE/TIME: 06/13/2020 6:43 pm REASON FOR STUDY: lt arm swelling COMPARISON: None. TECHNIQUE: Dynamic and static weber scale and color images acquired of the left arm venous system. Se lected spectral images acquired with additional compression and augmentation maneuvers. Images stored on PACS. LIMITATIONS: None. FINDINGS: INTERNAL JUGULAR VEIN: Normal phasicity, compression, augmentation. No visualized echogeni c material on weber scale. No defects on color images. Comparison opposite side normal. SUBCLAVIAN VEIN: Normal compression, augmentation. No visualized echogenic material on weber scale. No defects on color images. AXILLARY VEIN: Normal compression, augmentation. No visualized echogenic material on weber scale. No d efects on color images. BRACHIAL VEIN: Normal compression, augmentation. No visualized echogenic material on weber scale. No d efects on color images. BASILIC VEIN: Normal compression, augmentation. No visualized echogenic material on weber scale. No de fects on color images. CEPHALIC VEIN: Normal compression, augmentation. No visualized echogenic material on weber scale. No d efects on color images. OTHER: PICC line present. IMPRESSION: NO EVIDENCE DVT OR SVT IN THE LEFT ARM. TECHNICAL DOCUMENTATION: JOB ID: [id number] 2010 [employer]- All Rights Reserved Reading location - IP/workstation name: [email or web address]
[2020-06-14] MEDS: INSULIN REG, HUMAN 100 UNIT/ML 3 ML VIAL (PYX) SUBCUT SCH ×4 (00:02→18:20)
[2020-06-14] MEDS: METOPROLOL TARTRATE PF/INJ 5 MG/5 ML SDV IV PRN (02:01)
[2020-06-14] MEDS: MORPHINE SULFATE 10 MG/ML INJ IV PRN (02:04)
[2020-06-14] MEDS: ASCORBIC ACID 500 MG TABLET PO SCH ×4 (03:25→21:51)
[2020-06-14 07:15] LABS: HEMATOCRIT 30.4 % (36.0-47.0); HEMOGLOBIN 9.5 g/dL (12.0-15.5); MEAN CORPUSCULAR HGB CONC 31.1 g/dL (32.0-36.0); MEAN CORPUSCULAR VOLUME 93 fl (80-97); PLATELET COUNT 160 10^3/uL (150-450); RED BLOOD COUNT 3.26 10^6/uL (3.72-5.28); RED CELL DISTRIBUTION WIDTH 19.6 % (11.5-14.0); WHITE BLOOD COUNT 29.3 10^3/uL (4.0-10.5)
[2020-06-14 07:21] LABS: ALBUMIN 2.5 g/dL (3.5-5.0); ALKALINE PHOSPHATASE 160 U/L (38-126); ASPARTATE AMINO TRANSFERASE 73 U/L (14-36); BILIRUBIN,DIRECT 7.1 mg/dL (0.0-0.4); BILIRUBIN,TOTAL 8.7 mg/dL (0.2-1.3); BLOOD UREA NITROGEN 16 mg/dL (7-20); CALCIUM 8.6 mg/dL (8.4-10.2); GLUCOSE 141 mg/dL (75-110); POTASSIUM 3.5 mmol/L (3.6-5.0); TOTAL PROTEIN 6.4 g/dL (6.3-8.2)
[2020-06-14 07:22] LABS: ABSOLUTE LYMPHOCYTES# (MANUAL) 0.6 10^3/uL (0.5-4.7); ABSOLUTE MONOCYTES # (MANUAL) 1.2 10^3/uL (0.1-1.4); BASOPHILS % (MANUAL) 0 % (0-2); EOSINOPHILS % (MANUAL) 0 % (0-6); LYMPHOCYTES % (MANUAL) 2 % (13-45); METAMYELOCYTES % (MANUAL) 1 % (0-1); MONOCYTES % (MANUAL) 4 % (3-13); SEGMENTED NEUTROPHILS % (MAN) 93 % (42-78); TOTAL CELLS COUNTED 100
[2020-06-14 07:26] LABS: CARBON DIOXIDE 31 mmol/L (22-30); CHLORIDE 109 mmol/L (98-107)
[2020-06-14 07:31] LABS: ANION GAP 3 (5-19); POLYCHROMASIA 1+
[2020-06-14 07:32] LABS: ANISOCYTOSIS 2+; PLATELET COMMENT ADEQUATE; PLATELET LARGE PRESENT; POIKILOCYTOSIS 1+; STOMATOCYTES 1+; TARGET CELLS SLIGHT
[2020-06-14 07:33] LABS: OVALOCYTES SLIGHT
[2020-06-14] MEDS: ALBUMIN HUMAN 12.5 GM/50 ML RTUINJ IV SCH ×3 (09:04→12:30)
--- NOTE | 2020-06-14 09:50 | PDOC PROGRESS REPORT ---
Subjective Progress Note for:: 06/14/20 Subjective:: 49-year-old -[place] female smoker presented to [facility] emergency department on 05/07 with abdominal pain and decreased appetite. She was found to be dehydrated with abnormal LFTs, suspicious for a cholestatic pattern. With a history of gastric bypass (2003), the patient underwent surgical evaluation by Dr. Hubbard, which included intraoperative liver biopsy and choledochoduodenostomy. She was started on Unasyn/Flagyl postoperatively, and the patient has been through a succession of antimicrobials, including Zosyn, meropenem, linezolid and micafungin. She was transferred to the ICU on 05/29 due to concerns for worsening sepsis. She is afebrile and not requiring any vasopressor support; however, she has a waxing and waning leukocytosis (neutrophilia without bandemia). C. difficile has been checked twice and was found to be negative. 06/08: Case discussed with Dr. Hubbard. WBC count up to 35.2 today. Hemoglobin 6.9. Platelets 63. On linezolid, unclear clinical indication at this point. Nursing staff reports that the patient is having bloody output from the vagina. Patient reports last known menstrual flow phase was 6 years ago. She does report having been informed of "fibroids" and denies any other history of dysf unctional uterine bleeding. 06/09: Overnight, the patient became hypotensive and ashen in appearance. Also, mild lethargy was reported. Hemoglobin 6.95.0. She received 2 units PRBC with subsequent improvement in total status and hemodynamics. Not on pressors. She continues to have menorrhagia. In the interim, I was able to discuss the patient's status with the patient's daughter, who reports that the patient must have been confused yesterday. She has continued to have regular menstrual flow phases on a monthly basis. She has a longstanding history of menorrhagia. She did confirm that she had been diagnosed with "fibroids". Today, she is awake and alert. WBC 50.3. 06/10: MATHEMATICAL ENGINEER input appreciated. WBC 40.4 today. Hemoglobin 8.9 after an additional 2 units PRBC yesterday. Platelets 92. Mentating well. Nurse reports that menstrual flow may be abating. Case also discussed with Dr. Jayaram in the interim. Darci 2 mutation CML FISH studies pending. Case also discussed with Dr. Hubbard. Of note, LFTs are elevated (no clear pattern, hepatotoxic vs mixed, hepatotoxic/cholestatic). Had speech/swallow evaluation this morning. Was able to tolerate thin liquids and mechanical soft diet. Gram stain of sputum (06/07/2020) isolated Pseudomonas fluorescens/putida group, Klebsiella pneumoniae and Ashlie albicans. Abdominal fluid and ROSALVA drain samples (05/31/2020) isolated E coli and yeast (not Ashlie albicans). She remains on Rocephin and micafungin. 06/11: Case discussed with Dr. Hubbard. We will plan on discontinuing micafungin today. WBC 40.4>40.8. On room air. Afebrile. Hemoglobin 9.8. Now on Provera to help control menorrhagia. Mentating well. Off TPN now. Seems to be tolerating p.o. intake (modest). Visibly severely edematous. Still on Rocephin/micafungin. 06/12: WBC 40.837.5. Getting albumin/Lasix "push pull". On 4 LPM via nasal cannula, SPO2 99%. Afebrile. Taking well. Still on Rocephin. 06/1322-54-hysd-old female in the hospital for more than a mild came in on with abdominal pain and a decreased appetite. Found to have abnormal LFTs suspicion for cholestatic pattern. Patient has a prior history of gastric bypass in 2003. Consultation with Dr. Hubbard was done and that the patient underwent intraoperative liver biopsy and choledocho duodenostomy. No gallstones were found no obstruction was found. Patient was started on IV Unasyn and Flagyl postoperatively. Patient is on multiple antibiotics including Zosyn, meropenem, linezolid, micafungin. Patient was moved to ICU on 729 because of worsening sepsis. Patient has waxing and waning leukocytosis latest WBC count is 37,500. C. difficile was done which was negative during the hospital stay. At this time linozelide is discontinued ..WBC count is 37,500 today's labs are pending. Discussed the case with Dr. Hubbard his recommendation is to start on TPN, give IV albumin, IV Lasix, physical therapy. Those recommendations will be implemented. As per pharmacy recommendations the plan is to continue Protonix because patient is going to get famotidine with TP N. 06/14-patient is comfortably in the bed not in distress. No acute events in the last 24 hours. Febrile. Patient is receiving TPN and refusing oral feeds. Patient received albumin, IV Lasix yesterday. Upper and lower extremity edema still persisting negative balance of 2.1 L achieved yesterday. Surgical team following the patient LFTs are slightly improved. WBC count improved to 23,000. Potassium is 3.5 magnesium is 1.6 which is going to be supplemented. Reason For Visit: BILIARY OBSTRUCTION S/P SURGERY Physical Exam Vital Signs: Temp Pulse Resp BP Pulse Ox 97.5 F 112 H 24 H 130/91 H 94 06/14/20 03:45 06/14/20 07:00 06/14/20 03:45 06/14/20 03:45 06/14/20 03:45 Intake & Output 06/13/20 06/14/20 06/15/20 06:59 06:59 06:59 Intake Total 282 858 Output Total 2465 1000 Balance -2183 -142 Weight 128.7 kg 140 kg General appearance: PRESENT: no acute distress, morbidly obese Head exam: PRESENT: atraumatic Eye exam: PRESENT: conjunctiva pale, PERRLA Mouth exam: PRESENT: moist, tongue midline Teeth exam: PRESENT: poor dentation Neck exam: ABSENT: carotid bruit, JVD, lymphadenopathy, thyromegaly Respiratory exam: PRESENT: decreased breath sounds Cardiovascular exam: PRESENT: RRR. ABSENT: diastolic murmur, rubs, systolic murmur GI/Abdominal exam: PRESENT: normal bowel sounds, soft, other - has a surgical drain present.. ABSENT: distended, guarding, mass, organolmegaly, rebound, tenderness Rectal exam: PRESENT: deferred Extremities exam: PRESENT: full ROM. ABSENT: calf tenderness, clubbing, pedal edema Neurological exam: PRESENT: alert, awake, oriented to person, oriented to place, oriented to time, oriented to situation, CN II-XII grossly intact. ABSENT: motor sensory deficit Psychiatric exam: PRESENT: appropriate affect, normal mood. ABSENT: homicidal ideation, suicidal ideation Results Laboratory Results: 06/14/20 06:42 06/14/20 06:42 06/13/20 06/13/20 06/14/20 11:15 11:15 06:42 WBC 35.7 H* 29.3 H RBC 3.43 L 3.26 L Hgb 9.9 L 9.5 L Hct 31.4 L 30.4 L MCV 91 93 MCH 28.7 29.0 MCHC 31.4 L 31.1 L RDW 19.5 H 19.6 H Plt Count 162 160 Seg Neutrophils % Not Reportable Not Reportable Sodium 144.2 Potassium 3.3 L Chloride 108 H Carbon Dioxide 29 Anion Gap 7 BUN 17 Creatinine 0.71 Est GFR ( Amer) > 60 Glucose 82 Calcium 8.6 Magnesium 1.6 Total Bilirubin 10.1 H AST 81 H Alkaline Phosphatase 184 H Total Protein 6.6 Albumin 2.6 L 06/14/20 06:42 WBC RBC Hgb Hct MCV MCH MCHC RDW Plt Count Seg Neutrophils % Sodium 143.3 Potassium 3.5 L Chloride 109 H Carbon Dioxide 31 H Anion Gap 3 L BUN 16 Creatinine 0.68 Est GFR ( Amer) > 60 Glucose 141 H Calcium 8.6 Magnesium 1.6 Total Bilirubin 8.7 H AST 73 H Alkaline Phosphatase 160 H Total Protein 6.4 Albumin 2.5 L 05/14/20 05/15/20 06/07/20 15:18 06:45 05:07 Troponin I < 0.012 < 0.012 NT-Pro-B Natriuret Pep 2990 H Impressions: Abdomen Ultrasound 05/07/20 04:47 IMPRESSION: 1. Dilation of the common bile duct again identified measuring 1.2 cm. 2. Hepatic steatosis and hepatomegaly. 3. Prior cholecystectomy. PICC Line Insertion 05/14/20 00:00 IMPRESSION: SUCCESSFUL PLACEMENT OF A 5 FR DUAL LUMEN 42 CM PICC IN THE LEFT BASILIC VEIN. Hepatobiliary Scan Nuclear Medicine 05/27/20 08:17 IMPRESSION: Prior cholecystectomy. No evidence of bile leak. Vascular Ultrasound 05/28/20 00:00 IMPRESSION: No evidence of portal vein thrombosis. Abdomen CT 05/29/20 00:00 IMPRESSION: 1. Progressive ascites. No focal drainable abscess. Surgical drain remains in place. 2. Worsening lung aeration. WBC Scan Nuclear Medicine 05/30/20 07:00 IMPRESSION: Diffuse uptake in the chest of uncertain etiology, inflammation versus infection. Abdomen/Pelvis CT 06/02/20 00:00 IMPRESSION: Slight interval increase in abdominal ascites without loculated collection. Subhepatic drain remains in place. No definite residual fluid in the ga llbladder fossa. Bilateral pleural effusions, slightly increased on the left, with patchy airspace findings in the lung bases bilaterally. Pelvis Ultrasound 06/08/20 00:00 IMPRESSION: Technical limitations. Thickened endometrium. Differential is hyperplasia or carcinoma. Chest X-Ray 06/10/20 05:00 IMPRESSION: Stable perihilar and basilar predominant airspace disease and small bilateral effusions suggestive of pulmonary edema. Superimposed infection is not excluded. Venous Doppler Study 06/13/20 00:00 IMPRESSION: NO EVIDENCE DVT OR SVT IN THE LEFT ARM. Assessment and Plan - Diagnosis (1) Leukocytosis Qualifiers: Leukocytosis type: unspecified Qualified Code(s): D72.829 - Elevated white blood cell count, unspecified Is this a current diagnosis for this admission?: Yes Plan: Leukocytosis without bandemia. Suspicious for myelodysplastic process or hematologic malignancy. Consult requested Dr. Garcia for further evaluation and management of leukocytosis. Ferritin 575, iron saturation and TIBC were ordered but apparently not drawn. Jak2 mutation analysis pending, CML FISH analysis pending Urine culture 05/19/2020: VRE, which was treated with linezolid. Blood cultures 05/19/2020 NG at 5 days. ROSALVA drain cultures 05/30/2020: E. coli, yeast (not Ashlie albicans), treated with Rocephin and micafungin Abdominal fluid 05/31/2020: E. coli, yeast (not Ashlie albicans), treated with Rocephin and micafungin Stool for C. difficile negative x2 after which metronidazole was discontinued. 06/13/2020-patient is afebrile. Latest WBC count is 37,500. Today's labs are pending. Patient is presently on IV ceftriaxone plan is to continue the antibiotic therapy at this time. 06/14/2020-WBC count is 29,300 today. Improving. Presently on IV ceftriaxone at this time. (2) Klebsiella pneumoniae pneumonia Qualifiers: Laterality: left Is this a current diagnosis for this admission?: Yes Plan: On Rocephin based on sensitivities. 06/14/20-on IV ceftriaxone at this time. Plan is to continue the antibiotic for at least another 5 days. (3) Abnormal uterine bleeding Is this a current diagnosis for this admission?: Yes Plan: Dr. Harrell help appreciated. As per MATHEMATICAL ENGINEER patient is receiving Provera 20 mg p.o. 3 times daily. Plan is to switch the dose to 20 mg daily after 1 week of therapy. Plan is also make arrangements for outpatient endometrial biopsy. (4) Abnormal LFTs Is this a current diagnosis for this admission?: Yes Plan: Albumin/Lasix again today. 06/13/2020-patient looks edematous with a 2+ lower extremity edema started on Lasix 40 mg p.o. daily and started on albumin today. 06/14/2020-total bilirubin is 8.7 from 10.1, improving LFTs are slightly improved compared to yesterday. Plan is to closely monitor the labs on regular basis. (5) Biliary stricture Is this a current diagnosis for this admission?: Yes Plan: Case discussed with Dr. Hubbard. Surgery input appreciated. TPN discontinued. On mechanical soft diet. 06/13/2028 to start the patient back on TPN as per Dr. Hubbard's recommendations. (6) Protein-calorie malnutrition, severe Is this a current diagnosis for this admission?: Yes Plan: Has been on TPN. Now restarting p.o. diet. 1420-patient received IV albumin and IV Lasix yesterday urinary output is -2.1 L. Plan is to give albumin and Lasix again today. Lower extremity edema persisting. Patient is refusing physical therapy at this time. - Time Anticipated Discharge Disposition: [facility] Facility Anticipated Discharge Timeframe: within 72 hours
[2020-06-14] MEDS ORDERED: MAGNESIUM SULFATE/D5W 1 GM/100 ML RTUPB IV ONE ×2 (10:30→14:30)
[2020-06-14] MEDS ORDERED: POTASSI CL 20 MEQ/50 ML RIDER 20 MEQ/50 ML RTUPB IV ONE (11:00)
[2020-06-14] MEDS: FOLIC ACID 1 MG TABLET PO SCH (11:28)
[2020-06-14] MEDS: LIDOCAINE 5% (700 MG) TRANSDERMAL ADH..PATCH TP SCH (11:29)
[2020-06-14] MEDS: FUROSEMIDE 40 MG TABLET PO SCH (11:29)
[2020-06-14] MEDS: ZINC SULFATE 220 MG CAPSULE PO SCH (11:30)
[2020-06-14] MEDS: CHOLECALCIFEROL (D3) 1,000 UNIT (25 MCG) TABLET PO SCH (11:30)
[2020-06-14] MEDS: NORMAL SALINE 10 ML SDV (SCHEDULED) IV SCH ×2 (11:30→22:01)
[2020-06-14] MEDS: MEDROXYPROGESTERONE ACET 10 MG TABLET PO SCH ×3 (11:30→17:17)
[2020-06-14] MEDS ORDERED: FUROSEMIDE INJ/PF 20 MG/2 ML SDV ONE (11:46)
[2020-06-14] MEDS ORDERED: FUROSEMIDE INJ/PF 40 MG/4 ML SDV ONE (11:47)
[2020-06-14] MEDS ORDERED: NALOXONE HCL INJ/PF 0.4 MG/1 ML SDV ONE (11:56)
[2020-06-14 11:58] LABS: ARTERIAL BLOOD BASE EXCESS 3.6 mmol/L; ARTERIAL BLOOD FIO2 2L; ARTERIAL BLOOD H2CO3 2.22 mmol/L (1.05-1.35); ARTERIAL BLOOD HCO3 32.2 mmol/L (20-24); ARTERIAL BLOOD O2 SATURATION 91.8 % (94-98); ARTERIAL BLOOD PH 7.26 (7.35-7.45); ARTERIAL BLOOD PO2 73.1 mmHg (80-100); ARTERIAL BLOOD TOTAL CO2 34.5 mmol/L (21-25)
[2020-06-14 11:59] LABS: ARTERIAL BLOOD PCO2 73.6 mmHg (35-45)
--- NOTE | 2020-06-14 12:35 | RADIOLOGY REPORT (SQ) ---
EXAM DESCRIPTION: CHEST SINGLE VIEW IMAGES COMPLETED DATE/TIME: 06/14/2020 12:22 pm REASON FOR STUDY: SOB COMPARISON: 06/10/2020 EXAM PARAMETERS: NUMBER OF VIEWS: One view. TECHNIQUE: Single frontal radiographic view of the chest acquired. RADIATION DOSE: NA LIMITATIONS: None. FINDINGS: LUNGS AND PLEURA: Diffuse bilateral alveolar airspace disease right greater than left. Pr obable right effusion. Linear atelectasis in the left midlung field. No pneumothorax. PICC line re abdifatah in place. MEDIASTINUM AND HILAR STRUCTURES: No masses. Contour normal. HEART AND VASCULAR STRUCTURES: Stable in appearance. BONES: No acute findings. HARDWARE: None in the chest. OTHER: No other significant finding. IMPRESSION: Persistent bilateral airspace disease right greater than left. No significant change al lowing for differences in technique. TECHNICAL DOCUMENTATION: JOB ID: [id number] 2010 [employer]- All Rights Reserved Reading location - IP/workstation name: [email or web address]
[2020-06-14] MEDS: CEFTRIAXONE 2 GM/D5W RTU 2 GM/50 ML RTUPB IV SCH (13:12)
[2020-06-14] MEDS ORDERED: FUROSEMIDE INJ/PF 40 MG/4 ML SDV IV ONE (14:00)
[2020-06-14] MEDS ORDERED: NALOXONE HCL INJ/PF 0.4 MG/1 ML SDV IV ONE (14:00)
[2020-06-14] MEDS ORDERED: POTASSIUM CHLORIDE 20 MEQ/50 ML RTU IV ONE (14:30)
[2020-06-14] MEDS: THIAMINE HCL 200 MG in NORMAL SALINE 50 ML IV SCH ×2 (14:41→22:00)
[2020-06-14] MEDS: AMINO ACIDS 5 %/DEXTROSE 20 % 1,000 ML IV PRN (18:14)
[2020-06-15] MEDS: INSULIN REG, HUMAN 100 UNIT/ML 3 ML VIAL (PYX) SUBCUT SCH ×4 (00:38→18:19)
[2020-06-15] MEDS: ASCORBIC ACID 500 MG TABLET PO SCH ×4 (03:13→21:24)
[2020-06-15 08:09] LABS: ALBUMIN 2.3 g/dL (3.5-5.0); ALKALINE PHOSPHATASE 159 U/L (38-126); ASPARTATE AMINO TRANSFERASE 84 U/L (14-36); BILIRUBIN,DIRECT 5.7 mg/dL (0.0-0.4); BILIRUBIN,TOTAL 7.5 mg/dL (0.2-1.3); BLOOD UREA NITROGEN 16 mg/dL (7-20); CALCIUM 8.5 mg/dL (8.4-10.2); CARBON DIOXIDE 32 mmol/L (22-30); GLUCOSE 106 mg/dL (75-110); HEMATOCRIT 28.8 % (36.0-47.0); HEMOGLOBIN 9.1 g/dL (12.0-15.5); MEAN CORPUSCULAR HEMOGLOBIN 29.2 pg (27.0-33.4); MEAN CORPUSCULAR HGB CONC 31.7 g/dL (32.0-36.0); MEAN CORPUSCULAR VOLUME 92 fl (80-97); PLATELET COUNT 143 10^3/uL (150-450); POTASSIUM 3.2 mmol/L (3.6-5.0); RED BLOOD COUNT 3.13 10^6/uL (3.72-5.28); RED CELL DISTRIBUTION WIDTH 19.5 % (11.5-14.0); TOTAL PROTEIN 6.1 g/dL (6.3-8.2); WHITE BLOOD COUNT 21.3 10^3/uL (4.0-10.5)
[2020-06-15 08:14] LABS: CHLORIDE 110 mmol/L (98-107)
[2020-06-15 08:20] LABS: ANION GAP 3 (5-19)
[2020-06-15 08:57] LABS: ABSOLUTE LYMPHOCYTES# (MANUAL) 1.5 10^3/uL (0.5-4.7); ABSOLUTE MONOCYTES # (MANUAL) 1.1 10^3/uL (0.1-1.4); BAND NEUTROPHILS % (MANUAL) 1 % (3-5); BASOPHILS % (MANUAL) 0 % (0-2); EOSINOPHILS % (MANUAL) 2 % (0-6); LYMPHOCYTES % (MANUAL) 7 % (13-45); MONOCYTES % (MANUAL) 5 % (3-13); SEGMENTED NEUTROPHILS % (MAN) 85 % (42-78); TOTAL CELLS COUNTED 100
[2020-06-15 08:58] LABS: ANISOCYTOSIS 2+; PLATELET CLUMPS PRESENT; PLATELET COMMENT DECREASED; TARGET CELLS 2+
--- NOTE | 2020-06-15 09:31 | PDOC PROGRESS REPORT ---
Subjective Progress Note for:: 06/15/20 Subjective:: feels better on bipap tthis am wants to go home Reason For Visit: BILIARY OBSTRUCTION S/P SURGERY Physical Exam Vital Signs: Temp Pulse Resp BP Pulse Ox 97.9 F 120 H 28 H 119/72 99 06/15/20 08:05 06/15/20 08:05 06/15/20 08:05 06/15/20 08:05 06/15/20 08:05 Intake & Output 06/14/20 06/15/20 06/16/20 06:59 06:59 06:59 Intake Total 858 354 Output Total 1000 1225 Balance -142 -871 Weight 140 kg 141 kg General appearance: PRESENT: no acute distress Head exam: PRESENT: normocephalic Eye exam: PRESENT: EOMI Ear exam: PRESENT: normal external ear exam Mouth exam: PRESENT: moist Teeth exam: PRESENT: poor dentation Neck exam: PRESENT: full ROM Respiratory exam: PRESENT: clear to auscultation winter Cardiovascular exam: PRESENT: RRR Pulses: PRESENT: normal radial pulses, normal femoral pulses Breast: PRESENT: Normal GI/Abdominal exam: PRESENT: soft - Abdomen is soft nontender there midline wound has a punctate area at the most inferior aspect that is been now opened and draining there is approximately 50 cc of purulent material drained from the wound it was digitalized and packed with a saline soaked gauze. Rectal exam: PRESENT: deferred Extremities exam: PRESENT: full ROM Musculoskeletal exam: PRESENT: full ROM Neurological exam: PRESENT: alert, awake, oriented to person, oriented to place Psychiatric exam: PRESENT: appropriate affect Skin exam: PRESENT: dry - Patient's laboratory values continue to improve her white count is now down to 21,000. Her total bilirubin and direct have also dropped significantly. This morning her wound was open inferiorly for drainage of superficial wound infection and is now being packed. Her course is improving daily she is tolerating a regular diet now and working with physical therapy. Anticipated we would continue antibiotics for the next couple of days and then consider discharging to extended care facility. Results Laboratory Results: 06/15/20 05:58 06/15/20 05:58 06/14/20 06/15/20 06/15/20 11:50 05:58 05:58 WBC 21.3 H RBC 3.13 L Hgb 9.1 L Hct 28.8 L MCV 92 MCH 29.2 MCHC 31.7 L RDW 19.5 H Plt Count 143 L Seg Neutrophils % Not Reportable Carbonic Acid 2.22 H HCO3/H2CO3 Ratio 14:1 ABG pH 7.26 L ABG pCO2 73.6 H* ABG pO2 73.1 L ABG HCO3 32.2 H ABG O2 Saturation 91.8 L ABG Base Excess 3.6 FiO2 2L Sodium 145.1 H Potassium 3.2 L Chloride 110 H Carbon Dioxide 32 H Anion Gap 3 L BUN 16 Creatinine 0.65 Est GFR ( Amer) > 60 Glucose 106 Calcium 8.5 Magnesium 1.6 Total Bilirubin 7.5 H AST 84 H Alkaline Phosphatase 159 H Total Protein 6.1 L Albumin 2.3 L 05/14/20 05/15/20 06/07/20 15:18 06:45 05:07 Troponin I < 0.012 < 0.012 NT-Pro-B Natriuret Pep 2990 H Impressions: Abdomen Ultrasound 05/07/20 04:47 IMPRESSION: 1. Dilation of the common bile duct again identified measuring 1.2 cm. 2. Hepatic steatosis and hepatomegaly. 3. Prior cholecystectomy. PICC Line Insertion 05/14/20 00:00 IMPRESSION: SUCCESSFUL PLACEMENT OF A 5 FR DUAL LUMEN 42 CM PICC IN THE LEFT BASILIC VEIN. Hepatobiliary Scan Nuclear Medicine 05/27/20 08:17 IMPRESSION: Prior cholecystectomy. No evidence of bile leak. Vascular Ultrasound 05/28/20 00:00 IMPRESSION: No evidence of portal vein thrombosis. Abdomen CT 05/29/20 00:00 IMPRESSION: 1. Progressive ascites. No focal drainable abscess. Surgical drain remains in place. 2. Worsening lung aeration. WBC Scan Nuclear Medicine 05/30/20 07:00 IMPRESSION: Diffuse uptake in the chest of uncertain etiology, inflammation versus infection. Abdomen/Pelvis CT 06/02/20 00:00 IMPRESSION: Slight interval increase in abdominal ascites without loculated collection. Subhepatic drain remains in place. No definite residual fluid in the gallbladder fossa. Bilateral pleural effusions, slightly increased on the left, with patchy airspace findings in the lung bases bilaterally. Pelvis Ultrasound 06/08/20 00:00 IMPRESSION: Technical limitations. Thickened endometrium. Differential is hyperplasia or carcinoma. Venous Doppler Study 06/13/20 00:00 IMPRESSION: NO EVIDENCE DVT OR SVT IN THE LEFT ARM. Chest X-Ray 06/14/20 00:00 IMPRESSION: Persistent bilateral airspace disease right greater than left. No significant change allowing for differences in technique. Assessment & Plan - Diagnosis (1) Anemia Qualifiers: Anemia type: iron deficiency Iron deficiency anemia type: unspecified iron deficiency Qualified Code(s): D50.9 - Iron deficiency anemia, unspecified Is this a current diagnosis for this admission?: Yes - Time Anticipated Discharge Disposition: Intermediate Care Facility Anticipated Discharge Timeframe: when bed available
--- NOTE | 2020-06-15 10:03 | PDOC PROGRESS REPORT ---
Subjective Progress Note for:: 06/15/20 Subjective:: 49-year-old -[place]ong[place] female smoker presented to [facility] emergency department on 05/07 with abdominal pain and decreased appetite. She was found to be dehydrated with abnormal LFTs, suspicious for a cholestatic pattern. With a history of gastric bypass (2003), the patient underwent surgical evaluation by Dr. Hubbard, which included intraoperative liver biopsy and choledochoduodenostomy. She was started on Unasyn/Flagyl postoperatively, and the patient has been through a succession of antimicrobials, including Zosyn, meropenem, linezolid and micafungin. She was transferred to the ICU on 05/29 due to concerns for worsening sepsis. She is afebrile and not requiring any vasopressor support; however, she has a waxing and waning leukocytosis (neutrophilia without bandemia). C. difficile has been checked twice and was found to be negative. 06/08: Case discussed with Dr. Hubbard. WBC count up to 35.2 today. Hemoglobin 6.9. Platelets 63. On linezolid, unclear clinical indication at this point. Nursing staff reports that the patient is having bloody output from the vagina. Patient reports last known menstrual flow phase was 6 years ago. She does report having been informed of "fibroids" and denies any other history of dysf unctional uterine bleeding. 06/09: Overnight, the patient became hypotensive and ashen in appearance. Also, mild lethargy was reported. Hemoglobin 6.95.0. She received 2 units PRBC with subsequent improvement in total status and hemodynamics. Not on pressors. She continues to have menorrhagia. In the interim, I was able to discuss the patient's status with the patient's daughter, who reports that the patient must have been confused yesterday. She has continued to have regular menstrual flow phases on a monthly basis. She has a longstanding history of menorrhagia. She did confirm that she had been diagnosed with "fibroids". Today, she is awake and alert. WBC 50.3. 06/10: THERAPIST ASST input appreciated. WBC 40.4 today. Hemoglobin 8.9 after an additional 2 units PRBC yesterday. Platelets 92. Mentating well. Nurse reports that menstrual flow may be abating. Case also discussed with Dr. Jayaram in the interim. Darci 2 mutation CML FISH studies pending. Case also discussed with Dr. Hubbard. Of note, LFTs are elevated (no clear pattern, hepatotoxic vs mixed, hepatotoxic/cholestatic). Had speech/swallow evaluation this morning. Was able to tolerate thin liquids and mechanical soft diet. Gram stain of sputum (06/07/2020) isolated Pseudomonas fluorescens/putida group, Klebsiella pneumoniae and Ashlie albicans. Abdominal fluid and ROSALVA drain samples (05/31/2020) isolated E coli and yeast (not Ashlie albicans). She remains on Rocephin and micafungin. 06/11: Case discussed with Dr. Hubbard. We will plan on discontinuing micafungin today. WBC 40.4>40.8. On room air. Afebrile. Hemoglobin 9.8. Now on Provera to help control menorrhagia. Mentating well. Off TPN now. Seems to be tolerating p.o. intake (modest). Visibly severely edematous. Still on Rocephin/micafungin. 06/12: WBC 40.837.5. Getting albumin/Lasix "push pull". On 4 LPM via nasal cannula, SPO2 99%. Afebrile. Taking well. Still on Rocephin. 06/[id number]-glgu-old female in the hospital for more than a mild came in on with abdominal pain and a decreased appetite. Found to have abnormal LFTs suspicion for cholestatic pattern. Patient has a prior history of gastric bypass in 2003. Consultation with Dr. Hubbard was done and that the patient underwent intraoperative liver biopsy and choledocho duodenostomy. No gallstones were found no obstruction was found. Patient was started on IV Unasyn and Flagyl postoperatively. Patient is on multiple antibiotics including Zosyn, meropenem, linezolid, micafungin. Patient was moved to ICU on 729 because of worsening sepsis. Patient has waxing and waning leukocytosis latest WBC count is 37,500. C. difficile was done which was negative during the hospital stay. At this time linozelide is discontinued ..WBC count is 37,500 today's labs are pending. Discussed the case with Dr. Hubbard his recommendation is to start on TPN, give IV albumin, IV Lasix, physical therapy. Those recommendations will be implemented. As per pharmacy recommendations the plan is to continue Protonix because patient is going to get famotidine with TP N. 06/14-patient is comfortably in the bed not in distress. No acute events in the last 24 hours. Febrile. Patient is receiving TPN and refusing oral feeds. Patient received albumin, IV Lasix yesterday. Upper and lower extremity edema still persisting negative balance of 2.1 L achieved yesterday. Surgical team following the patient LFTs are slightly improved. WBC count improved to 23,000. Potassium is 3.5 magnesium is 1.6 which is going to be supplemented. 06/15/2020-no acute events in the last 24 hours. WBC count came down to 21,300. Afebrile. Dr. Hubbard is at bedside he drained 50 cc of purulent material from abdominal wall midline wound. Dr. Hubbard packed the wound with saline soaked gauze. Patient is still on BiPAP, plan is to do the ABG this morning if the ABG is good plan is to place the oxygen via nasal cannula. Reason For Visit: BILIARY OBSTRUCTION S/P SURGERY Physical Exam Vital Signs: Temp Pulse Resp BP Pulse Ox 97.9 F 120 H 28 H 119/72 99 06/15/20 08:05 06/15/20 08:05 06/15/20 08:05 06/15/20 08:05 06/15/20 08:05 Intake & Output 06/14/20 06/15/20 06/16/20 06:59 06:59 06:59 Intake Total 858 354 Output Total 1000 1225 Balance -142 -871 Weight 140 kg 141 kg General appearance: PRESENT: no acute distress, cooperative, obese Head exam: PRESENT: atraumatic Eye exam: PRESENT: conjunctiva pale, PERRLA Mouth exam: PRESENT: moist, tongue midline Teeth exam: PRESENT: poor dentation Neck exam: PRESENT: lymphadenopathy Respiratory exam: PRESENT: decreased breath sounds Cardiovascular exam: PRESENT: tachycardia GI/Abdominal exam: PRESENT: normal bowel sounds, soft, other - 50 cc of purulent material came from the midline wound. It was packed with saline gauze at this time.. ABSENT: distended, guarding, mass, organolmegaly, rebound, tenderness Rectal exam: PRESENT: deferred Neurological exam: PRESENT: alert, awake, oriented to person, oriented to place, oriented to time, oriented to situation, CN II-XII grossly intact. ABSENT: motor sensory deficit Psychiatric exam: PRESENT: appropriate affect, normal mood. ABSENT: homicidal ideation, suicidal ideation Results Laboratory Results: 06/15/20 05:58 06/15/20 05:58 06/14/20 06/15/20 06/15/20 11:50 05:58 05:58 WBC 21.3 H RBC 3.13 L Hgb 9.1 L Hct 28.8 L MCV 92 MCH 29.2 MCHC 31.7 L RDW 19.5 H Plt Count 143 L Seg Neutrophils % Not Reportable Carbonic Acid 2.22 H HCO3/H2CO3 Ratio 14:1 ABG pH 7.26 L ABG pCO2 73.6 H* ABG pO2 73.1 L ABG HCO3 32.2 H ABG O2 Saturation 91.8 L ABG Base Excess 3.6 FiO2 2L Sodium 145.1 H Potassium 3.2 L Chloride 110 H Carbon Dioxide 32 H Anion Gap 3 L BUN 16 Creatinine 0.65 Est GFR ( Amer) > 60 Glucose 106 Calcium 8.5 Magnesium 1.6 Total Bilirubin 7.5 H AST 84 H Alkaline Phosphatase 159 H Total Protein 6.1 L Albumin 2.3 L 05/14/20 05/15/20 06/07/20 15:18 06:45 05:07 Troponin I < 0.012 < 0.012 NT-Pro-B Natriuret Pep 2990 H Impressions: Abdomen Ultrasound 05/07/20 04:47 IMPRESSION: 1. Dilation of the common bile duct again identified measuring 1.2 cm. 2. Hepatic steatosis and hepatomegaly. 3. Prior cholecystectomy. PICC Line Insertion 05/14/20 00:00 IMPRESSION: SUCCESSFUL PLACEMENT OF A 5 FR DUAL LUMEN 42 CM PICC IN THE LEFT BASILIC VEIN. Hepatobiliary Scan Nuclear Medicine 05/27/20 08:17 IMPRESSION: Prior cholecystectomy. No evidence of bile leak. Vascular Ultrasound 05/28/20 00:00 IMPRESSION: No evidence of portal vein thrombosis. Abdomen CT 05/29/20 00:00 IMPRESSION: 1. Progressive ascites. No focal drainable abscess. Surgical drain remains in place. 2. Worsening lung aeration. WBC Scan Nuclear Medicine 05/30/20 07:00 IMPRESSION: Diffuse uptake in the chest of uncertain etiology, inflammation versus infection. Abdomen/Pelvis CT 06/02/20 00:00 IMPRESSION: Slight interval increase in abdominal ascites without loculated collection. Subhepatic drain remains in place. No definite residual fluid in the gallbladder fossa. Bilateral pleural effusions, slightly increased on the left, with patchy airspace findings in the lung bases bilaterally. Pelvis Ultrasound 06/08/20 00:00 IMPRESSION: Technical limitations. Thickened endometrium. Differential is hyperplasia or carcinoma. Venous Doppler Study 06/13/20 00:00 IMPRESSION: NO EVIDENCE DVT OR SVT IN THE LEFT ARM. Chest X-Ray 06/14/20 00:00 IMPRESSION: Persistent bilateral airspace disease right greater than left. No significant change allowing for differences in technique. Assessment and Plan - Diagnosis (1) Leukocytosis Qualifiers: Leukocytosis type: unspecified Qualified Code(s): D72.829 - Elevated white blood cell count, unspecified Is this a current diagnosis for this admission?: Yes Plan: Leukocytosis without bandemia. Suspicious for myelodysplastic process or hematologic malignancy. Consult requested Dr. Garcia for further evaluation and management of leukocytosis. Ferritin 575, iron saturation and TIBC were ordered but apparently not drawn. Jak2 mutation analysis pending, CML FISH analysis pending Urine culture 05/19/2020: VRE, which was treated with linezolid. Blood cultures 05/19/2020 NG at 5 days. ROSALVA drain cultures 05/30/2020: E. coli, yeast (not Ashlie albicans), treated with Rocephin and micafungin Abdominal fluid 05/31/2020: E. coli, yeast (not Ashlie albicans), treated with Rocephin and micafungin Stool for C. difficile negative x2 after which metronidazole was discontinued. 06/13/2020-patient is afebrile. Latest WBC count is 37,500. Today's labs are pe nding. Patient is presently on IV ceftriaxone plan is to continue the antibiotic therapy at this time. 06/14/2020-WBC count is 29,300 today. Improving. Presently on IV ceftriaxone at this time. 06/15/2020-WBC count is coming down to 21,300. 50 cc of purulent material drained from the abdominal wall midline wound site. It may be the source of high WBC. Patient is on IV Rocephin at this time. Afebrile. Blood pressures are on the softer side. (2) Klebsiella pneumoniae pneumonia Qualifiers: Laterality: left Is this a current diagnosis for this admission?: Yes Plan: On Rocephin based on sensitivities. 06/14/20-on IV ceftriaxone at this time. Plan is to continue the antibiotic for at least another 5 days. 06/15/2020-patient is receiving IV Rocephin for Klebsiella pneumonia. Plan is to continue IV antibiotics at this time. (3) Abnormal uterine bleeding Is this a current diagnosis for this admission?: Yes Plan: Dr. Harrell help appreciated. As per THERAPIST ASST patient is receiving Provera 20 mg p.o. 3 times daily. Plan is to switch the dose to 20 mg daily after 1 week of therapy. Plan is also make arrangements for outpatient endometrial biopsy. (4) Abnormal LFTs Is this a current diagnosis for this admission?: Yes Plan: Albumin/Lasix again today. 06/13/2020-patient looks edematous with a 2+ lower extremity edema started on Lasix 40 mg p.o. daily and started on albumin today. 06/14/2020-total bilirubin is 8.7 from 10.1, improving LFTs are slightly improved compared to yesterday. Plan is to closely monitor the labs on regular basis. 06/15/2020-LFTs continue to improve total bilirubin of 7.5 today. Direct bilirubin is 5.7. AST is 84, ALT is 51, alkaline phosphatase is 159. Plan is to continue to follow the LFTs on regular basis. (5) Biliary stricture Is this a current diagnosis for this admission?: Yes Plan: Case discussed with Dr. Hubbard. Surgery input appreciated. TPN discontinued. On mechanical soft diet. 06/13/2028 to start the patient back on TPN as per Dr. Hubbard's recommendations. (6) Protein-calorie malnutrition, severe Is this a current diagnosis for this admission?: Yes Plan: Has been on TPN. Now restarting p.o. diet. 1420-patient received IV albumin and IV Lasix yesterday urinary output is -2.1 L. Plan is to give albumin and Lasix again today. Lower extremity edema p ersisting. Patient is refusing physical therapy at this time. 06/15/2020-patient is receiving TPN at this time. Patient is also on IV albumin, IV Lasix at this time. Upper extremity edema resolved, lower extremity edema persisting. - Time Anticipated Discharge Disposition: Detention Facility Anticipated Discharge Timeframe: within 72 hours
[2020-06-15] MEDS: THIAMINE HCL 200 MG in NORMAL SALINE 50 ML IV SCH ×2 (10:46→22:35)
[2020-06-15 10:54] LABS: ARTERIAL BLOOD BASE EXCESS 7.2 mmol/L; ARTERIAL BLOOD FIO2 28%; ARTERIAL BLOOD H2CO3 1.24 mmol/L (1.05-1.35); ARTERIAL BLOOD O2 SATURATION 94.5 % (94-98); ARTERIAL BLOOD PCO2 41.1 mmHg (35-45); ARTERIAL BLOOD TOTAL CO2 32.3 mmol/L (21-25)
[2020-06-15] MEDS: FOLIC ACID 1 MG TABLET PO SCH (10:57)
[2020-06-15] MEDS: FUROSEMIDE 40 MG TABLET PO SCH (10:57)
[2020-06-15] MEDS: MEDROXYPROGESTERONE ACET 10 MG TABLET PO SCH ×3 (10:57→17:57)
[2020-06-15] MEDS: ZINC SULFATE 220 MG CAPSULE PO SCH (10:58)
[2020-06-15] MEDS: NORMAL SALINE 10 ML SDV (SCHEDULED) IV SCH ×2 (10:58→21:25)
[2020-06-15] MEDS: CHOLECALCIFEROL (D3) 1,000 UNIT (25 MCG) TABLET PO SCH (10:58)
[2020-06-15] MEDS: CEFTRIAXONE 2 GM/D5W RTU 2 GM/50 ML RTUPB IV SCH (11:31)
[2020-06-15] MEDS: METOPROLOL TARTRATE PF/INJ 5 MG/5 ML SDV IV PRN (11:44)
[2020-06-15] MEDS: NORMAL SALINE 10 ML SDV (AFTER EACH USE) IV PRN ×2 (12:03→14:52)
[2020-06-15] MEDS: LIDOCAINE 5% (700 MG) TRANSDERMAL ADH..PATCH TP SCH (13:49)
[2020-06-15] MEDS ORDERED: ACETAMINOPHEN 650 MG SUPP.RECT PR PRN (14:05)
[2020-06-15] MEDS: KETOROLAC TROMETHAMINE INJ/PF 30 MG/1 ML SDV IV SCH ×2 (14:53→21:23)
[2020-06-15] MEDS: AMINO ACIDS 5 %/DEXTROSE 20 % 1,000 ML IV PRN (16:44)
[2020-06-15] MEDS ORDERED: KETOROLAC TROMETHAMINE INJ/PF 30 MG/1 ML SDV IV SCH (18:00)
[2020-06-16] MEDS: INSULIN REG, HUMAN 100 UNIT/ML 3 ML VIAL (PYX) SUBCUT SCH ×4 (00:27→18:19)
[2020-06-16] MEDS: KETOROLAC TROMETHAMINE INJ/PF 30 MG/1 ML SDV IV SCH ×4 (03:05→21:18)
[2020-06-16] MEDS: ASCORBIC ACID 500 MG TABLET PO SCH ×4 (03:05→21:19)
[2020-06-16 06:41] LABS: HEMATOCRIT 28.4 % (36.0-47.0); MEAN CORPUSCULAR HEMOGLOBIN 29.4 pg (27.0-33.4); MEAN CORPUSCULAR HGB CONC 31.8 g/dL (32.0-36.0); MEAN CORPUSCULAR VOLUME 92 fl (80-97); PLATELET COUNT 138 10^3/uL (150-450); RED BLOOD COUNT 3.07 10^6/uL (3.72-5.28); WHITE BLOOD COUNT 22.4 10^3/uL (4.0-10.5)
[2020-06-16 06:44] LABS: ALBUMIN 2.3 g/dL (3.5-5.0); ALKALINE PHOSPHATASE 160 U/L (38-126); ASPARTATE AMINO TRANSFERASE 88 U/L (14-36); BILIRUBIN,DIRECT 6.6 mg/dL (0.0-0.4); BLOOD UREA NITROGEN 15 mg/dL (7-20); CALCIUM 8.7 mg/dL (8.4-10.2); GLUCOSE 114 mg/dL (75-110); POTASSIUM 3.8 mmol/L (3.6-5.0); TOTAL PROTEIN 6.3 g/dL (6.3-8.2)
[2020-06-16 06:48] LABS: CARBON DIOXIDE 32 mmol/L (22-30); CHLORIDE 111 mmol/L (98-107)
[2020-06-16 07:16] LABS: ANION GAP 3 (5-19)
[2020-06-16 07:34] LABS: ABSOLUTE MONOCYTES # (MANUAL) 0.2 10^3/uL (0.1-1.4); BAND NEUTROPHILS % (MANUAL) 1 % (3-5); BASOPHILS % (MANUAL) 0 % (0-2); EOSINOPHILS % (MANUAL) 0 % (0-6); LYMPHOCYTES % (MANUAL) 0 % (13-45); MONOCYTES % (MANUAL) 1 % (3-13); SEGMENTED NEUTROPHILS % (MAN) 98 % (42-78); TOTAL CELLS COUNTED 100
[2020-06-16 07:35] LABS: ANISOCYTOSIS 2+; PLATELET CLUMPS PRESENT; PLATELET COMMENT DECREASED; TARGET CELLS 1+
--- NOTE | 2020-06-16 08:34 | PDOC PROGRESS REPORT ---
Subjective Progress Note for:: 06/16/20 Subjective:: 49-year-old -[place] female smoker presented to [facility] emergency department on 05/07 with abdominal pain and decreased appetite. She was found to be dehydrated with abnormal LFTs, suspicious for a cholestatic pattern. With a history of gastric bypass (2003), the patient underwent surgical evaluation by Dr. Hubbard, which included intraoperative liver biopsy and choledochoduodenostomy. She was started on Unasyn/Flagyl postoperatively, and the patient has been through a succession of antimicrobials, including Zosyn, meropenem, linezolid and micafungin. She was transferred to the ICU on 05/29 due to concerns for worsening sepsis. She is afebrile and not requiring any vasopressor support; however, she has a waxing and waning leukocytosis (neutrophilia without bandemia). C. difficile has been checked twice and was found to be negative. 06/08: Case discussed with Dr. Hubbard. WBC count up to 35.2 today. Hemoglobin 6.9. Platelets 63. On linezolid, unclear clinical indication at this point. Nursing staff reports that the patient is having bloody output from the vagina. Patient reports last known menstrual flow phase was 6 years ago. She does report having been informed of "fibroids" and denies any other history of dysf unctional uterine bleeding. 06/09: Overnight, the patient became hypotensive and ashen in appearance. Also, mild lethargy was reported. Hemoglobin 6.95.0. She received 2 units PRBC with subsequent improvement in total status and hemodynamics. Not on pressors. She continues to have menorrhagia. In the interim, I was able to discuss the patient's status with the patient's daughter, who reports that the patient must have been confused yesterday. She has continued to have regular menstrual flow phases on a monthly basis. She has a longstanding history of menorrhagia. She did confirm that she had been diagnosed with "fibroids". Today, she is awake and alert. WBC 50.3. 06/10: STRATEGIC DEBRIEFING OFFICER input appreciated. WBC 40.4 today. Hemoglobin 8.9 after an additional 2 units PRBC yesterday. Platelets 92. Mentating well. Nurse reports that menstrual flow may be abating. Case also discussed with Dr. Jayaram in the interim. Darci 2 mutation CML FISH studies pending. Case also discussed with Dr. Hubbard. Of note, LFTs are elevated (no clear pattern, hepatotoxic vs mixed, hepatotoxic/cholestatic). Had speech/swallow evaluation this morning. Was able to tolerate thin liquids and mechanical soft diet. Gram stain of sputum (06/07/2020) isolated Pseudomonas fluorescens/putida group, Klebsiella pneumoniae and Ashlie albicans. Abdominal fluid and ROSALVA drain samples (05/31/2020) isolated E coli and yeast (not Ashlie albicans). She remains on Rocephin and micafungin. 06/11: Case discussed with Dr. Hubbard. We will plan on discontinuing micafungin today. WBC 40.4>40.8. On room air. Afebrile. Hemoglobin 9.8. Now on Provera to help control menorrhagia. Mentating well. Off TPN now. Seems to be tolerating p.o. intake (modest). Visibly severely edematous. Still on Rocephin/micafungin. 06/12: WBC 40.837.5. Getting albumin/Lasix "push pull". On 4 LPM via nasal cannula, SPO2 99%. Afebrile. Taking well. Still on Rocephin. 06/[id number]-old female in the hospital for more than a mild came in on with abdominal pain and a decreased appetite. Found to have abnormal LFTs suspicion for cholestatic pattern. Patient has a prior history of gastric bypass in 2003. Consultation with Dr. Hubbard was done and that the patient underwent intraoperative liver biopsy and choledocho duodenostomy. No gallstones were found no obstruction was found. Patient was started on IV Unasyn and Flagyl postoperatively. Patient is on multiple antibiotics including Zosyn, meropenem, linezolid, micafungin. Patient was moved to ICU on 729 because of worsening sepsis. Patient has waxing and waning leukocytosis latest WBC count is 37,500. C. difficile was done which was negative during the hospital stay. At this time linozelide is discontinued ..WBC count is 37,500 today's labs are pending. Discussed the case with Dr. Hubbard his recommendation is to start on TPN, give IV albumin, IV Lasix, physical therapy. Those recommendations will be implemented. As per pharmacy recommendations the plan is to continue Protonix because patient is going to get famotidine with TP N. 06/14-patient is comfortably in the bed not in distress. No acute events in the last 24 hours. Febrile. Patient is receiving TPN and refusing oral feeds. Patient received albumin, IV Lasix yesterday. Upper and lower extremity edema still persisting negative balance of 2.1 L achieved yesterday. Surgical team following the patient LFTs are slightly improved. WBC count improved to 23,000. Potassium is 3.5 magnesium is 1.6 which is going to be supplemented. 06/15/2020-no acute events in the last 24 hours. WBC count came down to 21,300. Afebrile. Dr. Hubbard is at bedside he drained 50 cc of purulent material from abdominal wall midline wound. Dr. Hubbard packed the wound with saline soaked gauze. Patient is still on BiPAP, plan is to do the ABG this morning if the ABG is good plan is to place the oxygen via nasal cannula. 06/16/20-patient is comfortably in the bed not in distress. Communicating okay. Denies any complaints. Patient is receiving daily dressings for the abdominal wall wound. WBC count is 22,400, patient is afebrile. Receiving IV Rocephin at this time. Plan is to give IV albumin supplementation. On examination upper extremity edema resolved, lower extremity edema persisting. Reason For Visit: BILIARY OBSTRUCTION S/P SURGERY Physical Exam Vital Signs: Temp Pulse Resp BP Pulse Ox 97.6 F 115 H 26 H 132/77 H 100 06/16/20 07:51 06/16/20 07:51 06/16/20 07:51 06/16/20 07:51 06/16/20 07:51 Intake & Output 06/15/20 06/16/20 06/17/20 06:59 06:59 06:59 Intake Total 354 184 Output Total 9236 005 Balance -871 -521 Weight 141 kg 129.9 kg General appearance: PRESENT: no acute distress, morbidly obese Head exam: PRESENT: atraumatic Eye exam: PRESENT: PERRLA Ear exam: PRESENT: normal external ear exam Mouth exam: PRESENT: neck supple Teeth exam: PRESENT: poor dentation Neck exam: PRESENT: JVD Respiratory exam: PRESENT: decreased breath sounds GI/Abdominal exam: PRESENT: other - Abdominal wall wound with the dressing present. Rectal exam: PRESENT: deferred Extremities exam: PRESENT: full ROM. ABSENT: calf tenderness, clubbing, pedal edema Neurological exam: PRESENT: alert, awake, oriented to person, oriented to place, oriented to time, oriented to situation, CN II-XII grossly intact. ABSENT: motor sensory deficit Results Laboratory Results: 06/16/20 06:01 06/16/20 06:01 06/15/20 06/15/20 06/16/20 05:58 10:40 06:01 WBC 21.3 H 22.4 H RBC 3.13 L 3.07 L Hgb 9.1 L 9.0 L Hct 28.8 L 28.4 L MCV 92 92 MCH 29.2 29.4 MCHC 31.7 L 31.8 L RDW 19.5 H 20.0 H Plt Count 143 L 138 L Seg Neutrophils % Not Reportable Not Reportable Carbonic Acid 1.24 HCO3/H2CO3 Ratio 25:1 ABG pH 7.50 H ABG pCO2 41.1 ABG pO2 66.0 L ABG HCO3 31.0 H ABG O2 Saturation 94.5 ABG Base Excess 7.2 FiO2 28% Sodium Potassium Chloride Carbon Dioxide Anion Gap BUN Creatinine Est GFR ( Amer) Glucose Calcium Magnesium Total Bilirubin AST Alkaline Phosphatase Total Protein Albumin 06/16/20 06:01 WBC RBC Hgb Hct MCV MCH MCHC RDW Plt Count Seg Neutrophils % Carbonic Acid HCO3/H2CO3 Ratio ABG pH ABG pCO2 ABG pO2 ABG HCO3 ABG O2 Saturation ABG Base Excess FiO2 Sodium 146.4 H Potassium 3.8 Chloride 111 H Carbon Dioxide 32 H Anion Gap 3 L BUN 15 Creatinine 0.57 Est GFR ( Amer) > 60 Glucose 114 H Calcium 8.7 Magnesium 1.7 Total Bilirubin 8.0 H AST 88 H Alkaline Phosphatase 160 H Total Protein 6.3 Albumin 2.3 L 05/14/20 05/15/20 06/07/20 15:18 06:45 05:07 Troponin I < 0.012 < 0.012 NT-Pro-B Natriuret Pep 2990 H Impressions: Abdomen Ultrasound 05/07/20 04:47 IMPRESSION: 1. Dilation of the common bile duct again identified measuring 1.2 cm. 2. Hepatic steatosis and hepatomegaly. 3. Prior cholecystectomy. PICC Line Insertion 05/14/20 00:00 IMPRESSION: SUCCESSFUL PLACEMENT OF A 5 FR DUAL LUMEN 42 CM PICC IN THE LEFT BASILIC VEIN. Hepatobiliary Scan Nuclear Medicine 05/27/20 08:17 IMPRESSION: Prior cholecystectomy. No evidence of bile leak. Vascular Ultrasound 05/28/20 00:00 IMPRESSION: No evidence of portal vein thrombosis. Abdomen CT 05/29/20 00:00 IMPRESSION: 1. Progressive ascites. No focal drainable abscess. Surgical drain remains in place. 2. Worsening lung aeration. WBC Scan Nuclear Medicine 05/30/20 07:00 IMPRESSION: Diffuse uptake in the chest of uncertain etiology, inflammation versus infection. Abdomen/Pelvis CT 06/02/20 00:00 IMPRESSION: Slight interval increase in abdominal ascites without loculated collection. Subhepatic drain remains in place. No definite residual fluid in the gallbladder fossa. Bilateral pleural effusions, slightly increased on the left, with patchy airspace findings in the lung bases bilaterally. Pelvis Ultrasound 06/08/20 00:00 IMPRESSION: Technical limitations. Thickened endometrium. Differential is hyperplasia or carcinoma. Venous Doppler Study 06/13/20 00:00 IMPRESSION: NO EVIDENCE DVT OR SVT IN THE LEFT ARM. Chest X-Ray 06/14/20 00:00 IMPRESSION: Persistent bilateral airspace disease right greater than left. No significant change allowing for differences in technique. Assessment and Plan - Diagnosis (1) Leukocytosis Qualifiers: Leukocytosis type: unspecified Qualified Code(s): D72.829 - Elevated white blood cell count, unspecified Is this a current diagnosis for this admission?: Yes Plan: Leukocytosis without bandemia. Suspicious for myelodysplastic process or hematologic malignancy. Consult requested Dr. Garcia for further evaluation and management of leukocytosis. Ferritin 575, iron saturation and TIBC were ordered but apparently not drawn. Jak2 mutation analysis pending, CML FISH analysis pending Urine culture 05/19/2020: VRE, which was treated with linezolid. Blood cultures 05/19/2020 NG at 5 days. ROSALVA drain cultures 05/30/2020: E. coli, yeast (not Ashlie albicans), treated with Rocephin and micafungin Abdominal fluid 05/31/2020: E. coli, yeast (not Ashlie albicans), treated with Rocephin and micafungin Stool for C. difficile negative x2 after which metronidazole was discontinued. 06/13/2020-patient is afebrile. Latest WBC count is 37,500. Today's labs are pending. Patient is presently on IV ceftriaxone plan is to continue the antibiotic therapy at this time. 06/14/2020-WBC count is 29,300 today. Improving. Presently on IV ceftriaxone at this time. 06/15/2020-WBC count is coming down to 21,300. 50 cc of purulent material drained from the abdominal wall midline wound site. It may be the source of high WBC. Patient is on IV Rocephin at this time. Afebrile. Blood pressures are on the softer side. 06/16/2020-WBC count is 22,400 today. On IV Rocephin 1 g daily. Plan is to closely monitor the labs on regular basis. (2) Klebsiella pneumoniae pneumonia Qualifiers: Laterality: left Is this a current diagnosis for this admission?: Yes Plan: On Rocephin based on sensitivities. 06/14/20-on IV ceftriaxone at this time. Plan is to continue the antibiotic for at least another 5 days. 06/15/2020-patient is receiving IV Rocephin for Klebsiella pneumonia. Plan is to continue IV antibiotics at this time. (3) Abnormal uterine bleeding Is this a current diagnosis for this admission?: Yes Plan: Dr. Harrell help appreciated. As per STRATEGIC DEBRIEFING OFFICER patient is receiving Provera 20 mg p.o. 3 times daily. Plan is to switch the dose to 20 mg daily after 1 week of therapy. Plan is also make dex french for outpatient endometrial biopsy. (4) Abnormal LFTs Is this a current diagnosis for this admission?: Yes Plan: Albumin/Lasix again today. 06/13/2020-patient looks edematous with a 2+ lower extremity edema started on Lasix 40 mg p.o. daily and started on albumin today. 06/14/2020-total bilirubin is 8.7 from 10.1, improving LFTs are slightly improved compared to yesterday. Plan is to closely monitor the labs on regular basis. 06/15/2020-LFTs continue to improve total bilirubin of 7.5 today. Direct bilirubin is 5.7. AST is 84, ALT is 51, alkaline phosphatase is 159. Plan is to continue to follow the LFTs on regular basis. 06/16/20-total bilirubin and LFTs are slightly elevated compared to yesterday. (5) Biliary stricture Is this a current diagnosis for this admission?: Yes Plan: Case discussed with Dr. Hubbard. Surgery input appreciated. TPN discontinued. On mechanical soft diet. 06/13/2028 to start the patient back on TPN as per Dr. Hubbard's recommendations. (6) Protein-calorie malnutrition, severe Is this a current diagnosis for this admission?: Yes Plan: Has been on TPN. Now restarting p.o. diet. 1420-patient received IV albumin and IV Lasix yesterday urinary output is -2.1 L. Plan is to give albumin and Lasix again today. Lower extremity edema pers isting. Patient is refusing physical therapy at this time. 06/15/2020-patient is receiving TPN at this time. Patient is also on IV albumin, IV Lasix at this time. Upper extremity edema resolved, lower extremity edema persisting. 06/16/2020-bilateral pedal edema is persisting plan it is given 25 g of IV albumin today. Upper extremity edema resolved. - Time Anticipated Discharge Disposition: Residential Facility Anticipated Discharge Timeframe: within 72 hours
[2020-06-16] MEDS: FOLIC ACID 1 MG TABLET PO SCH (09:18)
[2020-06-16] MEDS: FUROSEMIDE 40 MG TABLET PO SCH (09:18)
[2020-06-16] MEDS: ZINC SULFATE 220 MG CAPSULE PO SCH (09:19)
[2020-06-16] MEDS: MEDROXYPROGESTERONE ACET 10 MG TABLET PO SCH ×2 (09:19→13:07)
[2020-06-16] MEDS: CHOLECALCIFEROL (D3) 1,000 UNIT (25 MCG) TABLET PO SCH (09:19)
[2020-06-16] MEDS: THIAMINE HCL 200 MG in NORMAL SALINE 50 ML IV SCH ×2 (09:26→21:20)
--- NOTE | 2020-06-16 09:26 | PDOC PROGRESS REPORT ---
Subjective Progress Note for:: 06/16/20 Subjective:: no changes pt still with little motivation Reason For Visit: BILIARY OBSTRUCTION S/P SURGERY Physical Exam Vital Signs: Temp Pulse Resp BP Pulse Ox 97.6 F 115 H 26 H 132/77 H 100 06/16/20 07:51 06/16/20 07:51 06/16/20 07:51 06/16/20 07:51 06/16/20 07:51 Intake & Output 06/15/20 06/16/20 06/17/20 06:59 06:59 06:59 Intake Total 354 184 Output Total 1220 855 Balance -871 -111 Weight 141 kg 129.9 kg General appearance: PRESENT: no acute distress Head exam: PRESENT: normocephalic Eye exam: PRESENT: EOMI Ear exam: PRESENT: normal external ear exam Mouth exam: PRESENT: moist Teeth exam: PRESENT: edentulous, poor dentation Neck exam: PRESENT: full ROM Respiratory exam: PRESENT: clear to auscultation winter Cardiovascular exam: PRESENT: RRR Breast: PRESENT: Normal GI/Abdominal exam: PRESENT: other - midline wound draining some purulent fluid digitalized yesterday now packed iwth wet to dry min tenderness deisy drain in place ascitic fluid, bilious Rectal exam: PRESENT: deferred Extremities exam: PRESENT: +2 edema Musculoskeletal exam: PRESENT: full ROM Neurological exam: PRESENT: awake Psychiatric exam: PRESENT: depressed Skin exam: PRESENT: dry Results Laboratory Results: 06/16/20 06:01 06/16/20 06:01 06/15/20 06/16/20 06/16/20 10:40 06:01 06:01 WBC 22.4 H RBC 3.07 L Hgb 9.0 L Hct 28.4 L MCV 92 MCH 29.4 MCHC 31.8 L RDW 20.0 H Plt Count 138 L Seg Neutrophils % Not Reportable Carbonic Acid 1.24 HCO3/H2CO3 Ratio 25:1 ABG pH 7.50 H ABG pCO2 41.1 ABG pO2 66.0 L ABG HCO3 31.0 H ABG O2 Saturation 94.5 ABG Base Excess 7.2 FiO2 28% Sodium 146.4 H Potassium 3.8 Chloride 111 H Carbon Dioxide 32 H Anion Gap 3 L BUN 15 Creatinine 0.57 Est GFR ( Amer) > 60 Glucose 114 H Calcium 8.7 Magnesium 1.7 Total Bilirubin 8.0 H AST 88 H Alkaline Phosphatase 160 H Total Protein 6.3 Albumin 2.3 L 05/14/20 05/15/20 06/07/20 15:18 06:45 05:07 Troponin I < 0.012 < 0.012 NT-Pro-B Natriuret Pep 2990 H Impressions: Abdomen Ultrasound 05/07/20 04:47 IMPRESSION: 1. Dilation of the common bile duct again identified measuring 1.2 cm. 2. Hepatic steatosis and hepatomegaly. 3. Prior cholecystectomy. PICC Line Insertion 05/14/20 00:00 IMPRESSION: SUCCESSFUL PLACEMENT OF A 5 FR DUAL LUMEN 42 CM PICC IN THE LEFT BASILIC VEIN. Hepatobiliary Scan Nuclear Medicine 05/27/20 08:17 IMPRESSION: Prior cholecystectomy. No evidence of bile leak. Vascular Ultrasound 05/28/20 00:00 IMPRESSION: No evidence of portal vein thrombosis. Abdomen CT 05/29/20 00:00 IMPRESSION: 1. Progressive ascites. No focal drainable abscess. Surgical drain remains in place. 2. Worsening lung aeration. WBC Scan Nuclear Medicine 05/30/20 07:00 IMPRESSION: Diffuse uptake in the chest of uncertain etiology, inflammation versus infection. Abdomen/Pelvis CT 06/02/20 00:00 IMPRESSION: Slight interval increase in abdominal ascites without loculated c ollection. Subhepatic drain remains in place. No definite residual fluid in the gallbladder fossa. Bilateral pleural effusions, slightly increased on the left, with patchy airspace findings in the lung bases bilaterally. Pelvis Ultrasound 06/08/20 00:00 IMPRESSION: Technical limitations. Thickened endometrium. Differential is hyperplasia or carcinoma. Venous Doppler Study 06/13/20 00:00 IMPRESSION: NO EVIDENCE DVT OR SVT IN THE LEFT ARM. Chest X-Ray 06/14/20 00:00 IMPRESSION: Persistent bilateral airspace disease right greater than left. No significant change allowing for differences in technique. Assessment & Plan - Diagnosis (1) Anemia Qualifiers: Anemia type: iron deficiency Iron deficiency anemia type: unspecified iron deficiency Qualified Code(s): D50.9 - Iron deficiency anemia, unspecified Is this a current diagnosis for this admission?: Yes - Time Anticipated Discharge Disposition: [facility] Technician Care Facility Anticipated Discharge Timeframe: unk - Plan Summary Plan Summary: pt still with anasarca min improvemnt wound opened yesteday some pus, now packed wbc sl down pt has ;min motiviation to improve '
[2020-06-16] MEDS: NORMAL SALINE 10 ML SDV (SCHEDULED) IV SCH ×2 (09:27→21:20)
[2020-06-16] MEDS: CEFTRIAXONE 2 GM/D5W RTU 2 GM/50 ML RTUPB IV SCH (10:13)
[2020-06-16] MEDS: LIDOCAINE 5% (700 MG) TRANSDERMAL ADH..PATCH TP SCH (10:24)
[2020-06-16] MEDS: ALBUMIN HUMAN 12.5 GM/50 ML RTUINJ IV SCH ×2 (11:58→12:51)
[2020-06-16] MEDS: NORMAL SALINE 10 ML SDV (AFTER EACH USE) IV PRN (12:53)
[2020-06-16] MEDS: AMINO ACIDS 5 %/DEXTROSE 20 % 1,000 ML IV PRN (14:53)
[2020-06-17] MEDS: ASCORBIC ACID 500 MG TABLET PO SCH ×5 (02:47→21:19)
[2020-06-17] MEDS: KETOROLAC TROMETHAMINE INJ/PF 30 MG/1 ML SDV IV SCH ×4 (02:47→21:19)
[2020-06-17] MEDS: ALBUMIN HUMAN 12.5 GM/50 ML RTUINJ IV SCH (03:29)
[2020-06-17] MEDS: MORPHINE SULFATE 10 MG/ML INJ IV PRN (05:42)
[2020-06-17] MEDS: INSULIN REG, HUMAN 100 UNIT/ML 3 ML VIAL (PYX) SUBCUT SCH ×4 (06:06→17:32)
[2020-06-17 06:19] LABS: HEMATOCRIT 28.2 % (36.0-47.0); HEMOGLOBIN 8.9 g/dL (12.0-15.5); MEAN CORPUSCULAR HGB CONC 31.5 g/dL (32.0-36.0); MEAN CORPUSCULAR VOLUME 92 fl (80-97); PLATELET COUNT 144 10^3/uL (150-450); RED BLOOD COUNT 3.06 10^6/uL (3.72-5.28); RED CELL DISTRIBUTION WIDTH 19.7 % (11.5-14.0); WHITE BLOOD COUNT 20.4 10^3/uL (4.0-10.5)
[2020-06-17 06:39] LABS: ALBUMIN 2.2 g/dL (3.5-5.0); ALKALINE PHOSPHATASE 158 U/L (38-126); ASPARTATE AMINO TRANSFERASE 88 U/L (14-36); BILIRUBIN,DIRECT 6.1 mg/dL (0.0-0.4); BILIRUBIN,TOTAL 7.8 mg/dL (0.2-1.3); BLOOD UREA NITROGEN 16 mg/dL (7-20); CALCIUM 8.6 mg/dL (8.4-10.2); CARBON DIOXIDE 29 mmol/L (22-30); CHLORIDE 113 mmol/L (98-107); GLUCOSE 126 mg/dL (75-110); POTASSIUM 3.5 mmol/L (3.6-5.0); TOTAL PROTEIN 6.2 g/dL (6.3-8.2)
[2020-06-17 06:49] LABS: ABSOLUTE LYMPHOCYTES# (MANUAL) 1.4 10^3/uL (0.5-4.7); ANISOCYTOSIS 2+; BAND NEUTROPHILS % (MANUAL) 3 % (3-5); BASOPHILS % (MANUAL) 0 % (0-2); EOSINOPHILS % (MANUAL) 0 % (0-6); LYMPHOCYTES % (MANUAL) 7 % (13-45); MONOCYTES % (MANUAL) 5 % (3-13); OVALOCYTES 1+; POLYCHROMASIA 1+; SEGMENTED NEUTROPHILS % (MAN) 85 % (42-78); TOTAL CELLS COUNTED 100
[2020-06-17 06:50] LABS: PLATELET COMMENT ADEQUATE
[2020-06-17 07:21] LABS: ANION GAP 4 (5-19)
[2020-06-17] MEDS: AMINO ACIDS 5 %/DEXTROSE 20 % 1,000 ML IV PRN (08:43)
[2020-06-17] MEDS: FOLIC ACID 1 MG TABLET PO SCH (09:04)
[2020-06-17] MEDS: ZINC SULFATE 220 MG CAPSULE PO SCH (09:06)
--- NOTE | 2020-06-17 09:21 | PDOC PROGRESS REPORT ---
Subjective Progress Note for:: 06/17/20 Subjective:: 49-year-old -[place] female smoker presented to [facility] emergency department on 05/07 with abdominal pain and decreased appetite. She was found to be dehydrated with abnormal LFTs, suspicious for a cholestatic pattern. With a history of gastric bypass (2003), the patient underwent surgical evaluation by Dr. Hubbard, which included intraoperative liver biopsy and choledochoduodenostomy. She was started on Unasyn/Flagyl postoperatively, and the patient has been through a succession of antimicrobials, including Zosyn, meropenem, linezolid and micafungin. She was transferred to the ICU on 05/29 due to concerns for worsening sepsis. She is afebrile and not requiring any vasopressor support; however, she has a waxing and waning leukocytosis (neutrophilia without bandemia). C. difficile has been checked twice and was found to be negative. 06/08: Case discussed with Dr. Hubbard. WBC count up to 35.2 today. Hemoglobin 6.9. Platelets 63. On linezolid, unclear clinical indication at this point. Nursing staff reports that the patient is having bloody output from the vagina. Patient reports last known menstrual flow phase was 6 years ago. She does report having been informed of "fibroids" and denies any other history of dysf unctional uterine bleeding. 06/09: Overnight, the patient became hypotensive and ashen in appearance. Also, mild lethargy was reported. Hemoglobin 6.95.0. She received 2 units PRBC with subsequent improvement in total status and hemodynamics. Not on pressors. She continues to have menorrhagia. In the interim, I was able to discuss the patient's status with the patient's daughter, who reports that the patient must have been confused yesterday. She has continued to have regular menstrual flow phases on a monthly basis. She has a longstanding history of menorrhagia. She did confirm that she had been diagnosed with "fibroids". Today, she is awake and alert. WBC 50.3. 06/10: ENVIRONMENTAL DIRECTOR input appreciated. WBC 40.4 today. Hemoglobin 8.9 after an additional 2 units PRBC yesterday. Platelets 92. Mentating well. Nurse reports that menstrual flow may be abating. Case also discussed with Dr. Jayaram in the interim. Darci 2 mutation CML FISH studies pending. Case also discussed with Dr. Hubbard. Of note, LFTs are elevated (no clear pattern, hepatotoxic vs mixed, hepatotoxic/cholestatic). Had speech/swallow evaluation this morning. Was able to tolerate thin liquids and mechanical soft diet. Gram stain of sputum (06/07/2020) isolated Pseudomonas fluorescens/putida group, Klebsiella pneumoniae and Ashlie albicans. Abdominal fluid and ROSALVA drain samples (05/31/2020) isolated E coli and yeast (not Ashlie albicans). She remains on Rocephin and micafungin. 06/11: Case discussed with Dr. Hubbard. We will plan on discontinuing micafungin today. WBC 40.4>40.8. On room air. Afebrile. Hemoglobin 9.8. Now on Provera to help control menorrhagia. Mentating well. Off TPN now. Seems to be tolerating p.o. intake (modest). Visibly severely edematous. Still on Rocephin/micafungin. 06/12: WBC 40.837.5. Getting albumin/Lasix "push pull". On 4 LPM via nasal cannula, SPO2 99%. Afebrile. Taking well. Still on Rocephin. 06/[id number]-old female in the hospital for more than a mild came in on with abdominal pain and a decreased appetite. Found to have abnormal LFTs suspicion for cholestatic pattern. Patient has a prior history of gastric bypass in 2003. Consultation with Dr. Hubbard was done and that the patient underwent intraoperative liver biopsy and choledocho duodenostomy. No gallstones were found no obstruction was found. Patient was started on IV Unasyn and Flagyl postoperatively. Patient is on multiple antibiotics including Zosyn, meropenem, linezolid, micafungin. Patient was moved to ICU on 729 because of worsening sepsis. Patient has waxing and waning leukocytosis latest WBC count is 37,500. C. difficile was done which was negative during the hospital stay. At this time linozelide is discontinued ..WBC count is 37,500 today's labs are pending. Discussed the case with Dr. Hubbard his recommendation is to start on TPN, give IV albumin, IV Lasix, physical therapy. Those recommendations will be implemented. As per pharmacy recommendations the plan is to continue Protonix because patient is going to get famotidine with TP N. 06/14-patient is comfortably in the bed not in distress. No acute events in the last 24 hours. Febrile. Patient is receiving TPN and refusing oral feeds. Patient received albumin, IV Lasix yesterday. Upper and lower extremity edema still persisting negative balance of 2.1 L achieved yesterday. Surgical team following the patient LFTs are slightly improved. WBC count improved to 23,000. Potassium is 3.5 magnesium is 1.6 which is going to be supplemented. 06/15/2020-no acute events in the last 24 hours. WBC count came down to 21,300. Afebrile. Dr. Hubbard is at bedside he drained 50 cc of purulent material from abdominal wall midline wound. Dr. Hubbard packed the wound with saline soaked gauze. Patient is still on BiPAP, plan is to do the ABG this morning if the ABG is good plan is to place the oxygen via nasal cannula. 06/16/20-patient is comfortably in the bed not in distress. Communicating okay. Denies any complaints. Patient is receiving daily dressings for the abdominal wall wound. WBC count is 22,400, patient is afebrile. Receiving IV Rocephin at this time. Plan is to give IV albumin supplementation. On examination upper extremity edema resolved, lower extremity edema persisting. 06/[id number]-old female admitted with abdominal pain , because of the abnormal LFTs there is a suspicion for cholestatic pattern. Patient had a liver biopsy and choledochoduodenostomy. Patient is malnourished getting TPN refusing to take oral medications refusing to eat. Patient is receiving IV albumin and on daily Lasix. Upper extremity edema resolved, lower extremity edema resolving. Patient has a Damico's catheter. pt has a drainage tube at the abdominal wall. The abdominal wound wound with pussy drainage 2 days ago receiving daily dressings. At the time of my examination patient is on BiPAP. WBC count slightly improved to 20,400 today. Glucose is 127. At this time patient CODE STATUS is full code. Reason For Visit: BILIARY OBSTRUCTION S/P SURGERY Physical Exam Vital Signs: Temp Pulse Resp BP Pulse Ox 98.3 F 118 H 28 H 137/80 H 94 06/16/20 23:43 06/17/20 07:00 06/16/20 23:43 06/16/20 23:43 06/16/20 23:43 Intake & Output 06/16/20 06/17/20 06/18/20 06:59 06:59 06:59 Intake Total 184 248 Output Total 859 655 Balance -671 717 Weight 129.9 kg 128.2 kg General appearance: PRESENT: no acute distress, morbidly obese Head exam: PRESENT: atraumatic Eye exam: PRESENT: conjunctiva pale, PERRLA Mouth exam: PRESENT: moist, tongue midline Teeth exam: PRESENT: poor dentation Neck exam: ABSENT: carotid bruit, JVD, lymphadenopathy, thyromegaly Respiratory exam: PRESENT: other - Patient is on BiPAP at the time of my examination. Cardiovascular exam: PRESENT: tachycardia GI/Abdominal exam: PRESENT: other - Abdominal wall wound with the dressing present. And patient has a drain which shows cloudy fluid Rectal exam: PRESENT: deferred Extremities exam: PRESENT: full ROM. ABSENT: calf tenderness, clubbing, pedal edema Neurological exam: PRESENT: alert, awake, oriented to person, oriented to place, oriented to time, oriented to situation, CN II-XII grossly intact. ABSENT: motor sensory deficit Psychiatric exam: PRESENT: anxious Results Laboratory Results: 06/17/20 04:45 06/17/20 04:45 06/17/20 06/17/20 04:45 04:45 WBC 20.4 H RBC 3.06 L Hgb 8.9 L Hct 28.2 L MCV 92 MCH 29.0 MCHC 31.5 L RDW 19.7 H Plt Count 144 L Seg Neutrophils % Not Reportable Sodium 145.5 H Potassium 3.5 L Chloride 113 H Carbon Dioxide 29 Anion Gap 4 L BUN 16 Creatinine 0.47 L Est GFR ( Amer) > 60 Glucose 126 H Calcium 8.6 Magnesium 1.8 Total Bilirubin 7.8 H AST 88 H Alkaline Phosphatase 158 H Total Protein 6.2 L Albumin 2.2 L 05/14/20 05/15/20 06/07/20 15:18 06:45 05:07 Troponin I < 0.012 < 0.012 NT-Pro-B Natriuret Pep 2990 H Impressions: Abdomen Ultrasound 05/07/20 04:47 IMPRESSION: 1. Dilation of the common bile duct again identified measuring 1.2 cm. 2. Hepatic steatosis and hepatomegaly. 3. Prior cholecystectomy. PICC Line Insertion 05/14/20 00:00 IMPRESSION: SUCCESSFUL PLACEMENT OF A 5 FR DUAL LUMEN 42 CM PICC IN THE LEFT BASILIC VEIN. Hepatobiliary Scan Nuclear Medicine 05/27/20 08:17 IMPRESSION: Prior cholecystectomy. No evidence of bile leak. Vascular Ultrasound 05/28/20 00:00 IMPRESSION: No evidence of portal vein thrombosis. Abdomen CT 05/29/20 00:00 IMPRESSION: 1. Progressive ascites. No focal drainable abscess. Surgical drain remains in place. 2. Worsening lung aeration. WBC Scan Nuclear Medicine 05/30/20 07:00 IMPRESSION: Diffuse uptake in the chest of uncertain etiology, inflammation versus infection. Abdomen/Pelvis CT 06/02/20 00:00 IMPRESSION: Slight interval increase in abdominal ascites without loculated collection. Subhepatic drain remains in place. No definite residual fluid in the gallbladder fossa. Bilateral pleural effusions, slightly increased on the left, with patchy airspace findings in the lung bases bilaterally. Pelvis Ultrasound 06/08/20 00:00 IMPRESSION: Technical limitations. Thickened endometrium. Differential is hyperplasia or carcinoma. Venous Doppler Study 06/13/20 00:00 IMPRESSION: NO EVIDENCE DVT OR SVT IN THE LEFT ARM. Chest X-Ray 06/14/20 00:00 IMPRESSION: Persistent bilateral airspace disease right greater than left. No significant change allowing for differences in technique. Assessment and Plan - Diagnosis (1) Leukocytosis Qualifiers: Leukocytosis type: unspecified Qualified Code(s): D72.829 - Elevated white blood cell count, unspecified Is this a current diagnosis for this admission?: Yes Plan: Leukocytosis without bandemia. Suspicious for myelodysplastic process or hematologic malignancy. Consult requested Dr. Garcia for further evaluation and management of leukocytosis. Ferritin 575, iron saturation and TIBC were ordered but apparently not drawn. Jak2 mutation analysis pending, CML FISH analysis pending Urine culture 05/19/2020: VRE, which was treated with linezolid. Blood cultures 05/19/2020 NG at 5 days. ROSALVA drain cultures 05/30/2020: E. coli, yeast (not Ashlie albicans), treated with Rocephin and micafungin Abdominal fluid 05/31/2020: E. coli, yeast (not Ashlie albicans), treated with Rocephin and micafungin Stool for C. difficile negative x2 after which metronidazole was discontinued. 06/13/2020-patient is afebrile. Latest WBC count is 37,500. Today's labs are pending. Patient is presently on IV ceftriaxone plan is to continue the antibiotic therapy at this time. 06/14/2020-WBC count is 29,300 today. Improving. Presently on IV ceftriaxone at this time. 06/15/2020-WBC count is coming down to 21,300. 50 cc of purulent material drained from the abdominal wall midline wound site. It may be the source of high WBC. Patient is on IV Rocephin at this time. Afebrile. Blood pressures are on the softer side. 06/16/2020-WBC count is 22,400 today. On IV Rocephin 1 g daily. Plan is to closely monitor the labs on regular basis. 06/17/2020-WBC count is 20,400, patient is afebrile. Pressures are stable. Plan is to check the WBC on daily basis. (2) Klebsiella pneumoniae pneumonia Qualifiers: Laterality: left Is this a current diagnosis for this admission?: Yes Plan: On Rocephin based on sensitivities. 06/14/20-on IV ceftriaxone at this time. Plan is to continue the antibiotic for at least another 5 days. 06/15/2020-patient is receiving IV Rocephin for Klebsiella pneumonia. Plan is to continue IV antibiotics at this time. 06/17/2020-patient is receiving IV Rocephin for Klebsiella pneumonia. (3) Abnormal uterine bleeding Is this a current diagnosis for this admission?: Yes Plan: Dr. Harrell help appreciated. As per ENVIRONMENTAL DIRECTOR patient is receiving Provera 20 mg p.o. 3 times daily. Plan is to switch the dose to 20 mg daily after 1 week of therapy. Plan is also make arrangements for outpatient endometrial biopsy. 06/17/2020-patient is refusing p.o. medications so Provera is on hold at this time. (4) Abnormal LFTs Is this a current diagnosis for this admission?: Yes Plan: Albumin/Lasix again today. 06/13/2020-patient looks edematous with a 2+ lower extremity edema started on Lasix 40 mg p.o. daily and started on albumin today. 06/14/2020-total bilirubin is 8.7 from 10.1, improving LFTs are slightly improved compared to yesterday. Plan is to closely monitor the labs on regular basis. 06/15/2020-LFTs continue to improve total bilirubin of 7.5 today. Direct bilirubin is 5.7. AST is 84, ALT is 51, alkaline phosphatase is 159. Plan is to continue to follow the LFTs on regular basis. 06/16/20-total bilirubin and LFTs are slightly elevated compared to yesterday. 06/17/2020-total bilirubin today 6.1. LFTs are still slightly elevated at this time. (5) Biliary stricture Is this a current diagnosis for this admission?: Yes Plan: Case discussed with Dr. Hubbard. Surgery input appreciated. TPN discontinued. On mechanical soft diet. 06/13/2028 to start the patient back on TPN as per Dr. Hubbard's recommendations. (6) Protein-calorie malnutrition, severe Is this a current diagnosis for this admission?: Yes Plan: Has been on TPN. Now restarting p.o. diet. 1420-patient received IV albumin and IV Lasix yesterday urinary output is -2.1 L. Plan is to give albumin and Lasix again today. Lower extremity edema persisting. Patient is refusing physical therapy at this time. 06/15/2020-patient is receiving TPN at this time. Patient is also on IV albumin, IV Lasix at this time. Upper extremity edema resolved, lower extremity edema persisting. 06/16/2020-bilateral pedal edema is persisting plan it is given 25 g of IV albumin today. Upper extremity edema resolved. - Time Anticipated Discharge Disposition: Home, Self Care Anticipated Discharge Timeframe: within 72 hours
[2020-06-17] MEDS: FAT EMULSIONS 250 ML IV SCH (09:35)
[2020-06-17] MEDS: FUROSEMIDE INJ/PF 20 MG/2 ML SDV IV SCH (09:36)
[2020-06-17] MEDS: THIAMINE HCL 200 MG in NORMAL SALINE 50 ML IV SCH ×2 (09:37→21:19)
[2020-06-17] MEDS: CEFTRIAXONE 2 GM/D5W RTU 2 GM/50 ML RTUPB IV SCH (09:37)
[2020-06-17] MEDS: NORMAL SALINE 10 ML SDV (SCHEDULED) IV SCH ×2 (09:43→21:19)
[2020-06-17] MEDS: LIDOCAINE 5% (700 MG) TRANSDERMAL ADH..PATCH TP SCH (11:10)
[2020-06-17] MEDS: METOPROLOL TARTRATE PF/INJ 5 MG/5 ML SDV IV PRN ×2 (11:30→17:32)
[2020-06-18] MEDS: INSULIN REG, HUMAN 100 UNIT/ML 3 ML VIAL (PYX) SUBCUT SCH ×4 (00:12→18:33)
[2020-06-18] MEDS: KETOROLAC TROMETHAMINE INJ/PF 30 MG/1 ML SDV IV SCH ×4 (02:49→22:47)
[2020-06-18] MEDS: ASCORBIC ACID 500 MG TABLET PO SCH ×4 (02:50→21:02)
[2020-06-18] MEDS: AMINO ACIDS 5 %/DEXTROSE 20 % 1,000 ML IV PRN (05:13)
[2020-06-18 05:50] LABS: HEMATOCRIT 29.7 % (36.0-47.0); HEMOGLOBIN 9.1 g/dL (12.0-15.5); MEAN CORPUSCULAR HEMOGLOBIN 29.1 pg (27.0-33.4); MEAN CORPUSCULAR HGB CONC 30.6 g/dL (32.0-36.0); MEAN CORPUSCULAR VOLUME 95 fl (80-97); PLATELET COUNT 128 10^3/uL (150-450); RED BLOOD COUNT 3.12 10^6/uL (3.72-5.28); RED CELL DISTRIBUTION WIDTH 20.6 % (11.5-14.0); WHITE BLOOD COUNT 20.8 10^3/uL (4.0-10.5)
[2020-06-18 06:06] LABS: ALBUMIN 2.4 g/dL (3.5-5.0); ALKALINE PHOSPHATASE 171 U/L (38-126); ASPARTATE AMINO TRANSFERASE 81 U/L (14-36); BILIRUBIN,DIRECT 6.1 mg/dL (0.0-0.4); BILIRUBIN,TOTAL 7.5 mg/dL (0.2-1.3); BLOOD UREA NITROGEN 16 mg/dL (7-20); CALCIUM 8.9 mg/dL (8.4-10.2); GLUCOSE 120 mg/dL (75-110); POTASSIUM 3.9 mmol/L (3.6-5.0); TOTAL PROTEIN 6.6 g/dL (6.3-8.2)
[2020-06-18 06:11] LABS: ABSOLUTE LYMPHOCYTES# (MANUAL) 0.6 10^3/uL (0.5-4.7); ABSOLUTE MONOCYTES # (MANUAL) 1.7 10^3/uL (0.1-1.4); BAND NEUTROPHILS % (MANUAL) 2 % (3-5); BASOPHILS % (MANUAL) 2 % (0-2); CARBON DIOXIDE 34 mmol/L (22-30); CHLORIDE 112 mmol/L (98-107); EOSINOPHILS % (MANUAL) 0 % (0-6); LYMPHOCYTES % (MANUAL) 3 % (13-45); METAMYELOCYTES % (MANUAL) 1 % (0-1); MONOCYTES % (MANUAL) 8 % (3-13); SEGMENTED NEUTROPHILS % (MAN) 84 % (42-78); TOTAL CELLS COUNTED 100
[2020-06-18 06:12] LABS: ANISOCYTOSIS 2+; OVALOCYTES 2+; PLATELET COMMENT ADEQUATE; POIKILOCYTOSIS 2+; TEAR DROP CELLS 2+; TOXIC GRANULATION 1+; TOXIC VACUOLATION PRESENT
[2020-06-18 06:18] LABS: ANION GAP 4 (5-19)
[2020-06-18] MEDS: FOLIC ACID 1 MG TABLET PO SCH (08:59)
[2020-06-18] MEDS: ZINC SULFATE 220 MG CAPSULE PO SCH (08:59)
[2020-06-18] MEDS: FUROSEMIDE INJ/PF 20 MG/2 ML SDV IV SCH (09:00)
[2020-06-18] MEDS ORDERED: FUROSEMIDE INJ/PF 40 MG/4 ML SDV IV ONE (09:15)
--- NOTE | 2020-06-18 09:16 | PDOC PROGRESS REPORT ---
Subjective Progress Note for:: 06/18/20 Subjective:: Patient is tachypneic. She is also tachycardic. Nursing reports that this is a change from yesterday. She remains afebrile and has oxygen saturation of 100% on 4 L nasal cannula. Reason For Visit: BILIARY OBSTRUCTION S/P SURGERY Physical Exam Vital Signs: Temp Pulse Resp BP Pulse Ox 97.8 F 114 H 24 H 129/90 H 100 06/18/20 08:21 06/18/20 08:21 06/18/20 08:21 06/18/20 08:21 06/18/20 08:21 Intake & Output 06/17/20 06/18/20 06/19/20 06:59 06:59 06:59 Intake Total 248 404 Output Total 965 1380 Balance -717 -976 Weight 128.2 kg 130.2 kg General appearance: PRESENT: mild distress - Mild to moderate distress, morbidly obese, well-developed Head exam: PRESENT: atraumatic, normocephalic Eye exam: PRESENT: scleral icterus Ear exam: PRESENT: normal external ear exam. ABSENT: bleeding, drainage Mouth exam: PRESENT: dry mucosa, tongue midline Teeth exam: PRESENT: poor dentation Respiratory exam: PRESENT: crackles - Bilaterally, symmetrical, tachypnea. ABSENT: rales, rhonchi, wheezes Cardiovascular exam: PRESENT: +S1, +S2, tachycardia GI/Abdominal exam: PRESENT: diminished bowel sounds, soft, other - Surgical dressing in place Rectal exam: PRESENT: deferred Gentrourinary exam: PRESENT: indwelling catheter Extremities exam: PRESENT: other - Marked extremity edema 3-4+ Musculoskeletal exam: ABSENT: ambulatory, normal inspection Neurological exam: PRESENT: awake, other - Unable to fully assess. ABSENT: alert Psychiatric exam: PRESENT: appropriate affect - Affect reflects her current clinical state. ABSENT: agitated, anxious Focused psych exam: PRESENT: other - Unable to fully determine Results Laboratory Results: 06/18/20 05:20 06/18/20 05:20 06/17/20 06/18/20 06/18/20 19:58 05:20 05:20 WBC 20.8 H RBC 3.12 L Hgb 9.1 L Hct 29.7 L MCV 95 MCH 29.1 MCHC 30.6 L RDW 20.6 H Plt Count 128 L Seg Neutrophils % Not Reportable Sodium 150.4 H Potassium 3.9 Chloride 112 H Carbon Dioxide 34 H Anion Gap 4 L BUN 16 Creatinine 0.48 L Est GFR ( Amer) > 60 Glucose 120 H Calcium 8.9 Magnesium 1.8 Total Bilirubin 7.5 H AST 81 H Alkaline Phosphatase 171 H Total Protein 6.6 Albumin 2.4 L Triglycerides 209 H 05/14/20 05/15/20 06/07/20 15:18 06:45 05:07 Troponin I < 0.012 < 0.012 NT-Pro-B Natriuret Pep 2990 H Impressions: Abdomen Ultrasound 05/07/20 04:47 IMPRESSION: 1. Dilation of the common bile duct again identified measuring 1.2 cm. 2. Hepatic steatosis and hepatomegaly. 3. Prior cholecystectomy. PICC Line Insertion 05/14/20 00:00 IMPRESSION: SUCCESSFUL PLACEMENT OF A 5 FR DUAL LUMEN 42 CM PICC IN THE LEFT BASILIC VEIN. Hepatobiliary Scan Nuclear Medicine 05/27/20 08:17 IMPRESSION: Prior cholecystectomy. No evidence of bile leak. Vascular Ultrasound 05/28/20 00:00 IMPRESSION: No evidence of portal vein thrombosis. Abdomen CT 05/29/20 00:00 IMPRESSION: 1. Progressive ascites. No focal drainable abscess. Surgical drain remains in place. 2. Worsening lung aeration. WBC Scan Nuclear Medicine 05/30/20 07:00 IMPRESSION: Diffuse uptake in the chest of uncertain etiology, inflammation ve rsus infection. Abdomen/Pelvis CT 06/02/20 00:00 IMPRESSION: Slight interval increase in abdominal ascites without loculated collection. Subhepatic drain remains in place. No definite residual fluid in the gallbladder fossa. Bilateral pleural effusions, slightly increased on the left, with patchy airspace findings in the lung bases bilaterally. Pelvis Ultrasound 06/08/20 00:00 IMPRESSION: Technical limitations. Thickened endometrium. Differential is hyperplasia or carcinoma. Venous Doppler Study 06/13/20 00:00 IMPRESSION: NO EVIDENCE DVT OR SVT IN THE LEFT ARM. Chest X-Ray 06/14/20 00:00 IMPRESSION: Persistent bilateral airspace disease right greater than left. No significant change allowing for differences in technique. Assessment and Plan - Diagnosis (1) Leukocytosis Qualifiers: Leukocytosis type: unspecified Qualified Code(s): D72.829 - Elevated white blood cell count, unspecified Is this a current diagnosis for this admission?: Yes Plan: Still greater than 20,000. The patient has received multiple courses of antibiotic therapy. At this point the exact etiology of her leukocytosis is unclear but certainly the physiologic stressors of her severe illness are causing increased white blood cell count (2) Klebsiella pneumoniae pneumonia Qualifiers: Laterality: left Is this a current diagnosis for this admission?: Yes Plan: Treated and resolved. Monitor for reinfection. (3) Abnormal uterine bleeding Is this a current diagnosis for this admission?: Yes Plan: Patient declining Provera. At this point her swallow is unsafe due to her clinical state. (4) Abnormal LFTs Is this a current diagnosis for this admission?: Yes Plan: Fatty liver noted on biopsy. We will continue to monitor transaminases. No significant improvement over the last week. (5) Biliary stricture Is this a current diagnosis for this admission?: Yes Plan: Surgical intervention performed. See Dr. Hubbrad's operative note. (6) Protein-calorie malnutrition, severe Is this a current diagnosis for this admission?: Yes Plan: Extremely limited oral intake due to her illness. (7) Anemia Qualifiers: Anemia type: iron deficiency Iron deficiency anemia type: unspecified iron deficiency Qualified Code(s): D50.9 - Iron deficiency anemia, unspecified Is this a current diagnosis for this admission?: Yes Plan: Multifactorial including her critical illness as well as her abnormal uterine bleeding. - Time Time Spent with patient: 15-24 minutes Medications reviewed and adjusted accordingly: Yes Anticipated Discharge Disposition: Unclear at this time Anticipated Discharge Timeframe: Unknown
--- NOTE | 2020-06-18 09:48 | RADIOLOGY REPORT (SQ) ---
EXAM DESCRIPTION: CHEST SINGLE VIEW IMAGES COMPLETED DATE/TIME: 06/18/2020 9:38 am REASON FOR STUDY: Increased tachypnea and tachycardia COMPARISON: AP view of the chest from 06/14/2020. EXAM PARAMETERS: NUMBER OF VIEWS: One view. TECHNIQUE: An AP view of the chest was obtained. RADIATION DOSE: NA LIMITATIONS: None. FINDINGS: LUNGS AND PLEURA: Unchanged bilateral basilar predominant pleural and parenchymal opacitie s that obscure the contours of the hemidiaphragm and blunt the costophrenic sulci. MEDIASTINUM AND HILAR STRUCTURES: Stable mediastinal and hilar contours. HEART AND VASCULAR STRUCTURES: Stable enlarged cardiac silhouette. The pulmonary vasculature is josep stinct. BONES: No acute findings. HARDWARE: The tip of the left upper extremity PICC projects within the left brachiocephalic vein. OTHER: No other finding. IMPRESSION: Unchanged radiographic appearance of the chest. TECHNICAL DOCUMENTATION: JOB ID: [id number] [employer]- All Rights Reserved Reading location - IP/workstation name: [email or web address]
[2020-06-18] MEDS: NORMAL SALINE 10 ML SDV (SCHEDULED) IV SCH ×2 (10:25→22:52)
[2020-06-18] MEDS: THIAMINE HCL 200 MG in NORMAL SALINE 50 ML IV SCH ×2 (10:25→22:51)
[2020-06-18] MEDS: LIDOCAINE 5% (700 MG) TRANSDERMAL ADH..PATCH TP SCH (10:25)
[2020-06-18] MEDS: CEFTRIAXONE 2 GM/D5W RTU 2 GM/50 ML RTUPB IV SCH (10:26)
[2020-06-18] MEDS ORDERED: 1/2 NORMAL SALINE 1,000 ML IV PRN (21:39)
[2020-06-19] MEDS: INSULIN REG, HUMAN 100 UNIT/ML 3 ML VIAL (PYX) SUBCUT SCH ×4 (00:46→19:41)
[2020-06-19] MEDS: AMINO ACIDS 5 %/DEXTROSE 20 % 1,000 ML IV PRN ×2 (01:33→23:26)
[2020-06-19] MEDS: ASCORBIC ACID 500 MG TABLET PO SCH ×4 (02:24→23:19)
[2020-06-19] MEDS: KETOROLAC TROMETHAMINE INJ/PF 30 MG/1 ML SDV IV SCH ×5 (03:10→23:18)
[2020-06-19] MEDS: METOPROLOL TARTRATE PF/INJ 5 MG/5 ML SDV IV PRN (03:42)
[2020-06-19] MEDS ORDERED: 1/2 NORMAL SALINE 1,000 ML IV PRN (05:00)
[2020-06-19 06:56] LABS: HEMATOCRIT 30.9 % (36.0-47.0); HEMOGLOBIN 9.5 g/dL (12.0-15.5); MEAN CORPUSCULAR HEMOGLOBIN 28.7 pg (27.0-33.4); MEAN CORPUSCULAR HGB CONC 30.8 g/dL (32.0-36.0); MEAN CORPUSCULAR VOLUME 93 fl (80-97); PLATELET COUNT 182 10^3/uL (150-450); RED BLOOD COUNT 3.31 10^6/uL (3.72-5.28); RED CELL DISTRIBUTION WIDTH 20.4 % (11.5-14.0); WHITE BLOOD COUNT 20.5 10^3/uL (4.0-10.5)
[2020-06-19 07:02] LABS: ALBUMIN 2.4 g/dL (3.5-5.0); ALKALINE PHOSPHATASE 207 U/L (38-126); ASPARTATE AMINO TRANSFERASE 92 U/L (14-36); BILIRUBIN,DIRECT 6.7 mg/dL (0.0-0.4); BILIRUBIN,TOTAL 8.1 mg/dL (0.2-1.3); BLOOD UREA NITROGEN 17 mg/dL (7-20); CALCIUM 9.1 mg/dL (8.4-10.2); CARBON DIOXIDE 34 mmol/L (22-30); CHLORIDE 112 mmol/L (98-107); GLUCOSE 113 mg/dL (75-110); POTASSIUM 3.9 mmol/L (3.6-5.0); TOTAL PROTEIN 7.1 g/dL (6.3-8.2)
[2020-06-19 07:06] LABS: ANION GAP 5 (5-19)
[2020-06-19 07:27] LABS: ABSOLUTE LYMPHOCYTES# (MANUAL) 0.6 10^3/uL (0.5-4.7); ABSOLUTE MONOCYTES # (MANUAL) 0.6 10^3/uL (0.1-1.4); BAND NEUTROPHILS % (MANUAL) 2 % (3-5); BASOPHILS % (MANUAL) 1 % (0-2); EOSINOPHILS % (MANUAL) 3 % (0-6); LYMPHOCYTES % (MANUAL) 3 % (13-45); MONOCYTES % (MANUAL) 3 % (3-13); SEGMENTED NEUTROPHILS % (MAN) 88 % (42-78); TOTAL CELLS COUNTED 100
[2020-06-19 07:28] LABS: ANISOCYTOSIS 2+
[2020-06-19 07:29] LABS: HYPOCHROMASIA SLIGHT; PLATELET COMMENT ADEQUATE
[2020-06-19 07:30] LABS: POIKILOCYTOSIS SLIGHT
--- NOTE | 2020-06-19 11:09 | PDOC PROGRESS REPORT ---
Subjective Progress Note for:: 06/19/20 Subjective:: Patient is awake and attempts to answer questions. Still tachypneic on BiPAP. Reason For Visit: BILIARY OBSTRUCTION S/P SURGERY Physical Exam Vital Signs: Temp Pulse Resp BP Pulse Ox 98.1 F 105 H 27 H 125/77 93 06/19/20 09:27 06/19/20 09:27 06/19/20 09:27 06/19/20 09:27 06/19/20 09:27 Intake & Output 06/18/20 06/19/20 06/20/20 06:59 06:59 06:59 Intake Total 404 154 Output Total 1380 1200 Balance -976 -1046 Weight 130.2 kg 129.9 kg General appearance: PRESENT: mild distress, morbidly obese, well-developed Head exam: PRESENT: atraumatic, normocephalic Eye exam: PRESENT: scleral icterus, other - Scleral edema Ear exam: PRESENT: normal external ear exam. ABSENT: bleeding, drainage Teeth exam: PRESENT: poor dentation Respiratory exam: PRESENT: crackles - Crackles bilaterally, decreased breath sounds - At both bases, symmetrical, tachypnea. ABSENT: rales, rhonchi, wheezes Cardiovascular exam: PRESENT: +S1, +S2, tachycardia - Sinus tachycardia. ABSENT: bradycardia, diastolic murmur, irregular rhythm, systolic murmur GI/Abdominal exam: PRESENT: hypoactive bowel sounds, soft, tenderness, other - Midline surgical dressing Rectal exam: PRESENT: deferred Gentrourinary exam: PRESENT: indwelling catheter Extremities exam: PRESENT: other - 3+ edema. Hands improved slightly. Musculoskeletal exam: ABSENT: ambulatory Neurological exam: PRESENT: alert, awake, oriented to person, oriented to place, oriented to situation, other - Difficulty answering questions mostly due to tachypnea and wearing the BiPAP mask. She is unable to tolerate any significant amount of time off of BiPAP. Psychiatric exam: ABSENT: agitated, anxious Focused psych exam: ABSENT: delusional, paranoid, restlessness Skin exam: PRESENT: dry, warm. ABSENT: rash Results Laboratory Results: 06/19/20 06:00 06/19/20 06:00 06/19/20 06/19/20 06:00 06:00 WBC 20.5 H RBC 3.31 L Hgb 9.5 L Hct 30.9 L MCV 93 MCH 28.7 MCHC 30.8 L RDW 20.4 H Plt Count 182 Seg Neutrophils % Not Reportable Sodium 150.4 H Potassium 3.9 Chloride 112 H Carbon Dioxide 34 H Anion Gap 5 BUN 17 Creatinine 0.51 L Est GFR ( Amer) > 60 Glucose 113 H Calcium 9.1 Magnesium 1.8 Total Bilirubin 8.1 H AST 92 H Alkaline Phosphatase 207 H Total Protein 7.1 Albumin 2.4 L 05/14/20 05/15/20 06/07/20 15:18 06:45 05:07 Troponin I < 0.012 < 0.012 NT-Pro-B Natriuret Pep 2990 H Impressions: Abdomen Ultrasound 05/07/20 04:47 IMPRESSION: 1. Dilation of the common bile duct again identified measuring 1.2 cm. 2. Hepatic steatosis and hepatomegaly. 3. Prior cholecystectomy. PICC Line Insertion 05/14/20 00:00 IMPRESSION: SUCCESSFUL PLACEMENT OF A 5 FR DUAL LUMEN 42 CM PICC IN THE LEFT BASILIC VEIN. Hepatobiliary Scan Nuclear Medicine 05/27/20 08:17 IMPRESSION: Prior cholecystectomy. No evidence of bile leak. Vascular Ultrasound 05/28/20 00:00 IMPRESSION: No evidence of portal vein thrombosis. Abdomen CT 05/29/20 00:00 IMPRESSION: 1. Progressive ascites. No focal drainable abscess. Surgical drain remains in place. 2. Worsening lung aeration. WBC Scan Nuclear Medicine 05/30/20 07:00 IMPRESSION: Diffuse uptake in the chest of uncertain etiology, inflammation versus infection. Abdomen/Pelvis CT 06/02/20 00:00 IMPRESSION: Slight interval increase in abdominal ascites without loculated collection. Subhepatic drain remains in place. No definite residual fluid in the gallbladder fossa. Bilateral pleural effusions, slightly increased on the left, with patchy airspace findings in the lung bases bilaterally. Pelvis Ultrasound 06/08/20 00:00 IMPRESSION: Technical limitations. Thickened endometrium. Differential is hyperplasia or carcinoma. Venous Doppler Study 06/13/20 00:00 IMPRESSION: NO EVIDENCE DVT OR SVT IN THE LEFT ARM. Chest X-Ray 06/18/20 00:00 IMPRESSION: Unchanged radiographic appearance of the chest. Assessment and Plan - Diagnosis (1) Leukocytosis Qualifiers: Leukocytosis type: unspecified Qualified Code(s): D72.829 - Elevated white blood cell count, unspecified Is this a current diagnosis for this admission?: Yes Plan: Still no improvement despite antibiotic therapy (2) Klebsiella pneumoniae pneumonia Qualifiers: Laterality: left Is this a current diagnosis for this admission?: Yes Plan: Currently on Rocephin with no clinical improvement. X-ray still suggests bi lateral lower lobe infiltrates. (3) Abnormal uterine bleeding Is this a current diagnosis for this admission?: Yes Plan: Stable at this time (4) Abnormal LFTs Is this a current diagnosis for this admission?: Yes Plan: Transaminases and bilirubin remain high (5) Biliary stricture Is this a current diagnosis for this admission?: Yes Plan: Repaired surgically. Despite this bilirubin remains high (6) Protein-calorie malnutrition, severe Is this a current diagnosis for this admission?: Yes Plan: Currently on TPN to try to correct protein calorie malnutrition (7) Anemia Qualifiers: Anemia type: iron deficiency Iron deficiency anemia type: unspecified iron deficiency Qualified Code(s): D50.9 - Iron deficiency anemia, unspecified Is this a current diagnosis for this admission?: Yes Plan: Hemoglobin was 9.1 yesterday and 9.5 today. Continue to monitor. - Time Time Spent with patient: 15-24 minutes Medications reviewed and adjusted accordingly: Yes Anticipated Discharge Disposition: Working towards hospice/comfort care Anticipated Discharge Timeframe: Unknown
[2020-06-19] MEDS: ZINC SULFATE 220 MG CAPSULE PO SCH (11:29)
[2020-06-19] MEDS: CEFTRIAXONE 2 GM/D5W RTU 2 GM/50 ML RTUPB IV SCH (11:38)
[2020-06-19] MEDS: FUROSEMIDE INJ/PF 20 MG/2 ML SDV IV SCH (11:38)
[2020-06-19] MEDS: NORMAL SALINE 10 ML SDV (SCHEDULED) IV SCH ×2 (11:39→23:25)
[2020-06-19] MEDS: LIDOCAINE 5% (700 MG) TRANSDERMAL ADH..PATCH TP SCH (11:39)
[2020-06-19] MEDS: THIAMINE HCL 200 MG in NORMAL SALINE 50 ML IV SCH ×2 (11:40→23:31)
[2020-06-20] MEDS: INSULIN REG, HUMAN 100 UNIT/ML 3 ML VIAL (PYX) SUBCUT SCH ×4 (00:10→17:30)
[2020-06-20] MEDS: KETOROLAC TROMETHAMINE INJ/PF 30 MG/1 ML SDV IV SCH ×4 (02:54→20:31)
[2020-06-20] MEDS: ASCORBIC ACID 500 MG TABLET PO SCH ×4 (02:56→20:32)
[2020-06-20] MEDS: FUROSEMIDE INJ/PF 20 MG/2 ML SDV IV SCH (10:34)
[2020-06-20] MEDS: CEFTRIAXONE 2 GM/D5W RTU 2 GM/50 ML RTUPB IV SCH (10:35)
[2020-06-20] MEDS: LIDOCAINE 5% (700 MG) TRANSDERMAL ADH..PATCH TP SCH (10:35)
[2020-06-20] MEDS: NORMAL SALINE 10 ML SDV (SCHEDULED) IV SCH ×2 (10:35→21:26)
[2020-06-20] MEDS: ZINC SULFATE 220 MG CAPSULE PO SCH (10:51)
[2020-06-20] MEDS: FAT EMULSIONS 250 ML IV SCH (11:16)
[2020-06-20] MEDS: THIAMINE HCL 200 MG in NORMAL SALINE 50 ML IV SCH ×2 (11:51→21:28)
--- NOTE | 2020-06-20 11:52 | PDOC PROGRESS REPORT ---
Subjective Progress Note for:: 06/20/20 Subjective:: The patient does try to answer questions. Unfortunately her tachypnea in the presence of the BiPAP mask make it difficult to understand. Reason For Visit: BILIARY OBSTRUCTION S/P SURGERY Physical Exam Vital Signs: Temp Pulse Resp BP Pulse Ox 99.3 F 130 H 40 H 141/84 H 97 06/20/20 07:48 06/20/20 08:58 06/20/20 07:48 06/20/20 07:48 06/20/20 08:58 Intake & Output 06/19/20 06/20/20 06/21/20 06:59 06:59 06:59 Intake Total 154 102 Output Total 1200 1140 Balance -1046 -1038 Weight 129.9 kg 130.1 kg General appearance: PRESENT: cooperative, morbidly obese, severe distress Head exam: PRESENT: atraumatic, normocephalic Eye exam: PRESENT: scleral icterus, other - Scleral edema improved Teeth exam: PRESENT: poor dentation Neck exam: ABSENT: full ROM Respiratory exam: PRESENT: decreased breath sounds - At bases, other - Limited inspiratory phase with increased work of breathing Cardiovascular exam: PRESENT: +S1, +S2, tachycardia. ABSENT: bradycardia, d iastolic murmur, irregular rhythm, systolic murmur GI/Abdominal exam: PRESENT: hypoactive bowel sounds, soft, tenderness - Near midline incision, other - Pendulous abdomen Rectal exam: PRESENT: deferred Gentrourinary exam: PRESENT: indwelling catheter Extremities exam: PRESENT: other - 3+ leg edema Musculoskeletal exam: ABSENT: ambulatory Neurological exam: PRESENT: alert, awake, oriented to person, oriented to place, oriented to situation Psychiatric exam: ABSENT: agitated, anxious Focused psych exam: ABSENT: delusional, paranoid, restlessness Results Laboratory Results: 06/19/20 06:00 06/19/20 06:00 05/14/20 05/15/20 06/07/20 15:18 06:45 05:07 Troponin I < 0.012 < 0.012 NT-Pro-B Natriuret Pep 2990 H Impressions: Abdomen Ultrasound 05/07/20 04:47 IMPRESSION: 1. Dilation of the common bile duct again identified measuring 1.2 cm. 2. Hepatic steatosis and hepatomegaly. 3. Prior cholecystectomy. PICC Line Insertion 05/14/20 00:00 IMPRESSION: SUCCESSFUL PLACEMENT OF A 5 FR DUAL LUMEN 42 CM PICC IN THE LEFT BASILIC VEIN. Hepatobiliary Scan Nuclear Medicine 05/27/20 08:17 IMPRESSION: Prior cholecystectomy. No evidence of bile leak. Vascular Ultrasound 05/28/20 00:00 IMPRESSION: No evidence of portal vein thrombosis. Abdomen CT 05/29/20 00:00 IMPRESSION: 1. Progressive ascites. No focal drainable abscess. Surgical drain remains in place. 2. Worsening lung aeration. WBC Scan Nuclear Medicine 05/30/20 07:00 IMPRESSION: Diffuse uptake in the chest of uncertain etiology, inflammation versus infection. Abdomen/Pelvis CT 06/02/20 00:00 IMPRESSION: Slight interval increase in abdominal ascites without loculated collection. Subhepatic drain remains in place. No definite residual fluid in the gallbladder fossa. Bilateral pleural effusions, slightly increased on the left, with patchy airspace findings in the lung bases bilaterally. Pelvis Ultrasound 06/08/20 00:00 IMPRESSION: Technical limitations. Thickened endometrium. Differential is hyperplasia or carcinoma. Venous Doppler Study 06/13/20 00:00 IMPRESSION: NO EVIDENCE DVT OR SVT IN THE LEFT ARM. Chest X-Ray 06/18/20 00:00 IMPRESSION: Unchanged radiographic appearance of the chest. Assessment and Plan - Diagnosis (1) Leukocytosis Qualifiers: Leukocytosis type: unspecified Qualified Code(s): D72.829 - Elevated white blood cell count, unspecified Is this a current diagnosis for this admission?: Yes Plan: White blood cell count is better today. It finally dropped below 20,000. We will continue the antibiotics at this time. It is hard to know. The white blood cell count can certainly go back up tomorrow. We will recheck CBC tomorrow. (2) Klebsiella pneumoniae pneumonia Qualifiers: Laterality: left Is this a current diagnosis for this admission?: Yes Plan: Remains on ceftriaxone through tomorrow (3) Abnormal uterine bleeding Is this a current diagnosis for this admission?: Yes Plan: Stable (4) Abnormal LFTs Is this a current diagnosis for this admission?: Yes Plan: Alkaline phosphatase and ALT continue to slowly climb. AST is elevated but stable. (5) Protein-calorie malnutrition, severe Is this a current diagnosis for this admission?: Yes Plan: Continue TPN (6) Anemia Qualifiers: Anemia type: iron deficiency Iron deficiency anemia type: unspecified iron deficiency Qualified Code(s): D50.9 - Iron deficiency anemia, unspecified Is this a current diagnosis for this admission?: Yes Plan: Hemoglobin is stable just above 9.0 (7) Biliary stricture Is this a current diagnosis for this admission?: Yes Plan: Repaired surgically. Despite this bilirubin remains high - Time Time Spent with patient: 15-24 minutes Medications reviewed and adjusted accordingly: Yes Anticipated Discharge Disposition: Hospice Center Anticipated Discharge Timeframe: within 72 hours
[2020-06-20 12:18] LABS: ABSOLUTE EOSINOPHILS # (AUTO) 0.2 10^3/uL (0.0-0.6); ABSOLUTE LYMPHOCYTES (AUTO) 0.9 10^3/uL (0.5-4.7); ABSOLUTE NEUT (AUTO) 12.8 10^3/uL (1.7-8.2); BASOPHILS % (AUTO) 0.3 % (0-2); EOSINOPHILS % (AUTO) 1.1 % (0-6); HEMATOCRIT 28.6 % (36.0-47.0); HEMOGLOBIN 9.3 g/dL (12.0-15.5); LYMPHOCYTES % (AUTO) 5.5 % (13-45); MEAN CORPUSCULAR HGB CONC 32.4 g/dL (32.0-36.0); MEAN CORPUSCULAR VOLUME 90 fl (80-97); MONOCYTES % (AUTO) 12.7 % (3-13); PLATELET COUNT 195 10^3/uL (150-450); RED BLOOD COUNT 3.19 10^6/uL (3.72-5.28); RED CELL DISTRIBUTION WIDTH 19.7 % (11.5-14.0); SEGMENTED NEUTROPHILS % (AUTO) 80.4 % (42-78); TOTAL CELLS COUNTED % (AUTO) 100 %; WHITE BLOOD COUNT 15.9 10^3/uL (4.0-10.5)
[2020-06-20] MEDS: 1/2 NORMAL SALINE 1,000 ML IV PRN ×2 (12:45→20:37)
[2020-06-20 12:58] LABS: ALBUMIN 2.2 g/dL (3.5-5.0); ALKALINE PHOSPHATASE 210 U/L (38-126); ASPARTATE AMINO TRANSFERASE 104 U/L (14-36); BILIRUBIN,DIRECT 5.4 mg/dL (0.0-0.4); BILIRUBIN,TOTAL 6.9 mg/dL (0.2-1.3); BLOOD UREA NITROGEN 21 mg/dL (7-20); CALCIUM 8.9 mg/dL (8.4-10.2); GLUCOSE 127 mg/dL (75-110); POTASSIUM 4.3 mmol/L (3.6-5.0); TOTAL PROTEIN 6.7 g/dL (6.3-8.2)
[2020-06-20 13:05] LABS: CARBON DIOXIDE 30 mmol/L (22-30); CHLORIDE 113 mmol/L (98-107)
[2020-06-20 14:07] LABS: ANION GAP 4 (5-19)
[2020-06-20 16:46] LABS: BLOOD UREA NITROGEN 19 mg/dL (7-20); CALCIUM 8.9 mg/dL (8.4-10.2); CHLORIDE 111 mmol/L (98-107); GLUCOSE 129 mg/dL (75-110); POTASSIUM 3.8 mmol/L (3.6-5.0)
[2020-06-20 16:52] LABS: CARBON DIOXIDE 34 mmol/L (22-30)
[2020-06-20 16:58] LABS: ANION GAP 3 (5-19)
[2020-06-20] MEDS: AMINO ACIDS 5 %/DEXTROSE 20 % 1,000 ML IV PRN (20:33)
[2020-06-21] MEDS: INSULIN REG, HUMAN 100 UNIT/ML 3 ML VIAL (PYX) SUBCUT SCH ×4 (01:01→18:16)
[2020-06-21] MEDS: ASCORBIC ACID 500 MG TABLET PO SCH ×4 (03:02→21:49)
[2020-06-21] MEDS: KETOROLAC TROMETHAMINE INJ/PF 30 MG/1 ML SDV IV SCH ×4 (03:06→21:46)
--- NOTE | 2020-06-21 06:00 | ADVANCED CARE ---
- Diagnosis (1) Leukocytosis Diagnosis Current: Yes (2) Klebsiella pneumoniae pneumonia Diagnosis Current: Yes (3) Abnormal uterine bleeding Diagnosis Current: Yes (4) Abnormal LFTs Diagnosis Current: Yes (5) Protein-calorie malnutrition, severe Diagnosis Current: Yes (6) Anemia Diagnosis Current: Yes (7) Biliary stricture Diagnosis Current: Yes Attendance: The patient's daughter Jessica both on the phone and at the bedside as well as the patient during the bedside discussion Resuscitation Status: Full Code Discussion: The patient has been doing poorly for the last 4 weeks. She seems to be decli cliff slowly. She cannot be off of BiPAP for more than 10 minutes. I reviewed the ongoing liver abnormalities as well as the elevated white blood cell count. We discussed multiple dispositions. My recommendation was for comfort care here in the hospital. The other options would be home hospice or a hospice house as I felt strongly that she would not survive this hospitalization. Reviewed the highly unlikely ability to transfer to a hospice house as she would not be able to be on BiPAP. I made the case for comfort measures here in the hospital and as I could control the medications and ensure that she was not in pain or experiencing air hunger. It seemed that her daughter was in favor of this however the patient was resistant. I asked the daughter to discuss this further with the patient as well as her siblings and let the nurse know of their decision. I will asked that a hospice house medical service representative reach out to the family to further discuss. Care Planning Goals: To help the patient understand that she is not going to survive and that there are options that would be able to stop her pain and suffering. Document(s) Completed: None Time Spent: 50 minutes over the course of 3 discussions
[2020-06-21] MEDS: 1/2 NORMAL SALINE 1,000 ML IV PRN ×3 (06:01→23:41)
[2020-06-21 07:49] LABS: ABSOLUTE BASOPHILS # (AUTO) 0.2 10^3/uL (0.0-0.2); ABSOLUTE EOSINOPHILS # (AUTO) 0.2 10^3/uL (0.0-0.6); ABSOLUTE LYMPHOCYTES (AUTO) 0.8 10^3/uL (0.5-4.7); ABSOLUTE MONOCYTES (AUTO) 2.2 10^3/uL (0.1-1.4); ABSOLUTE NEUT (AUTO) 12.9 10^3/uL (1.7-8.2); BASOPHILS % (AUTO) 1.2 % (0-2); EOSINOPHILS % (AUTO) 1.4 % (0-6); HEMATOCRIT 28.7 % (36.0-47.0); HEMOGLOBIN 8.9 g/dL (12.0-15.5); LYMPHOCYTES % (AUTO) 5.1 % (13-45); MEAN CORPUSCULAR HGB CONC 31.1 g/dL (32.0-36.0); MEAN CORPUSCULAR VOLUME 93 fl (80-97); MONOCYTES % (AUTO) 13.4 % (3-13); PLATELET COUNT 146 10^3/uL (150-450); RED BLOOD COUNT 3.08 10^6/uL (3.72-5.28); RED CELL DISTRIBUTION WIDTH 19.8 % (11.5-14.0); SEGMENTED NEUTROPHILS % (AUTO) 78.9 % (42-78); TOTAL CELLS COUNTED % (AUTO) 100 %; WHITE BLOOD COUNT 16.3 10^3/uL (4.0-10.5)
[2020-06-21] MEDS: NORMAL SALINE 10 ML SDV (SCHEDULED) IV SCH ×2 (09:04→21:50)
[2020-06-21] MEDS: ZINC SULFATE 220 MG CAPSULE PO SCH (09:05)
[2020-06-21] MEDS: THIAMINE HCL 200 MG in NORMAL SALINE 50 ML IV SCH ×2 (09:28→21:51)
[2020-06-21] MEDS: FUROSEMIDE INJ/PF 20 MG/2 ML SDV IV SCH (09:29)
[2020-06-21 12:50] LABS: ALBUMIN 2.2 g/dL (3.5-5.0); ALKALINE PHOSPHATASE 195 U/L (38-126); ASPARTATE AMINO TRANSFERASE 103 U/L (14-36); BILIRUBIN,DIRECT 5.5 mg/dL (0.0-0.4); BILIRUBIN,TOTAL 6.8 mg/dL (0.2-1.3); BLOOD UREA NITROGEN 22 mg/dL (7-20); GLUCOSE 133 mg/dL (75-110); POTASSIUM 4.6 mmol/L (3.6-5.0)
[2020-06-21 12:56] LABS: CARBON DIOXIDE 33 mmol/L (22-30); CHLORIDE 110 mmol/L (98-107)
[2020-06-21 13:04] LABS: ANION GAP 3 (5-19)
[2020-06-21] MEDS: AMINO ACIDS 5 %/DEXTROSE 20 % 1,000 ML IV PRN (14:29)
[2020-06-21] MEDS: LIDOCAINE 5% (700 MG) TRANSDERMAL ADH..PATCH TP SCH (15:41)
--- NOTE | 2020-06-21 22:48 | PDOC PROGRESS REPORT ---
Subjective Progress Note for:: 06/21/20 Subjective:: The patient is obtunded. Her daughter is at the bedside. Reason For Visit: BILIARY OBSTRUCTION S/P SURGERY Physical Exam Vital Signs: Temp Pulse Resp BP Pulse Ox 98.0 F 109 H 26 H 134/82 H 94 06/21/20 16:28 06/21/20 16:28 06/21/20 20:52 06/21/20 16:28 06/21/20 20:52 Intake & Output 06/20/20 06/21/20 06/22/20 06:59 06:59 06:59 Intake Total 154 2137 1052 Output Total 1140 885 665 Balance -986 1252 387 Weight 130.1 kg 131.3 kg General appearance: PRESENT: mild distress, other - BiPAP mask in place Head exam: PRESENT: atraumatic, normocephalic Respiratory exam: PRESENT: decreased breath sounds, symmetrical, tachypnea. ABSENT: rhonchi, wheezes Cardiovascular exam: PRESENT: RRR, +S1, +S2. ABSENT: bradycardia, diastolic murmur, irregular rhythm, systolic murmur, tachycardia GI/Abdominal exam: PRESENT: hypoactive bowel sounds, soft, tenderness, other - Pendulous abdomen Rectal exam: PRESENT: deferred Gentrourinary exam: PRESENT: indwelling catheter Extremities exam: PRESENT: other - 3+ edema legs Musculoskeletal exam: ABSENT: ambulatory Neurological exam: ABSENT: awake Psychiatric exam: PRESENT: other - Obtunded Results Laboratory Results: 06/21/20 07:20 06/21/20 12:12 06/21/20 06/21/20 06/21/20 07:20 07:20 09:56 WBC 16.3 H RBC 3.08 L Hgb 8.9 L Hct 28.7 L MCV 93 MCH 29.0 MCHC 31.1 L RDW 19.8 H Plt Count 146 L Seg Neutrophils % 78.9 H Sodium Cancelled Cancelled Potassium Cancelled Cancelled Chloride Cancelled Cancelled Carbon Dioxide Cancelled Cancelled Anion Gap Cancelled Cancelled BUN Cancelled Cancelled Creatinine Cancelled Cancelled Est GFR ( Amer) Cancelled Cancelled Est GFR (Non-Af Amer) Cancelled Cancelled Glucose Cancelled Cancelled Calcium Cancelled Cancelled Phosphorus Total Bilirubin Cancelled Cancelled AST Cancelled Cancelled Alkaline Phosphatase Cancelled Cancelled Total Protein Cancelled Cancelled Albumin Cancelled Cancelled 06/21/20 06/21/20 09:56 12:12 WBC RBC Hgb Hct MCV MCH MCHC RDW Plt Count Seg Neutrophils % Sodium 145.8 H Potassium 4.6 Chloride 110 H Carbon Dioxide 33 H Anion Gap 3 L BUN 22 H Creatinine 0.50 L Est GFR ( Amer) > 60 Est GFR (Non-Af Amer) Glucose 133 H Calcium 9.0 Phosphorus 5.9 H Total Bilirubin 6.8 H AST 103 H Alkaline Phosphatase 195 H Total Protein 7.0 Albumin 2.2 L 05/14/20 05/15/20 06/07/20 15:18 06:45 05:07 Troponin I < 0.012 < 0.012 NT-Pro-B Natriuret Pep 2990 H Impressions: Abdomen Ultrasound 05/07/20 04:47 IMPRESSION: 1. Dilation of the common bile duct again identified measuring 1.2 cm. 2. Hepatic steatosis and hepatomegaly. 3. Prior cholecystectomy. PICC Line Insertion 05/14/20 00:00 IMPRESSION: SUCCESSFUL PLACEMENT OF A 5 FR DUAL LUMEN 42 CM PICC IN THE LEFT BASILIC VEIN. Hepatobiliary Scan Nuclear Medicine 05/27/20 08:17 IMPRESSION: Prior cholecystectomy. No evidence of bile leak. Vascular Ultrasound 05/28/20 00:00 IMPRESSION: No evidence of portal vein thrombosis. Abdomen CT 05/29/20 00:00 IMPRESSION: 1. Progressive ascites. No focal drainable abscess. Surgical drain remains in place. 2. Worsening lung aeration. WBC Scan Nuclear Medicine 05/30/20 07:00 IMPRESSION: Diffuse uptake in the chest of uncertain etiology, inflammation versus infection. Abdomen/Pelvis CT 06/02/20 00:00 IMPRESSION: Slight interval increase in abdominal ascites without loculated collection. Subhepatic drain remains in place. No definite residual fluid in the gallbladder fossa. Bilateral pleural effusions, slightly increased on the left, with patchy airspace findings in the lung bases bilaterally. Pelvis Ultrasound 06/08/20 00:00 IMPRESSION: Technical limitations. Thickened endometrium. Differential is hyperplasia or carcinoma. Venous Doppler Study 06/13/20 00:00 IMPRESSION: NO EVIDENCE DVT OR SVT IN THE LEFT ARM. Chest X-Ray 06/18/20 00:00 IMPRESSION: Unchanged radiographic appearance of the chest. Assessment and Plan - Diagnosis (1) Leukocytosis Qualifiers: Leukocytosis type: unspecified Qualified Code(s): D72.829 - Elevated white blood cell count, unspecified Is this a current diagnosis for this admission?: Yes Plan: Only marginal improvement. The patient has reached the end of treatment with antibiotics. (2) Klebsiella pneumoniae pneumonia Qualifiers: Laterality: left Is this a current diagnosis for this admission?: Yes Plan: Antibiotic therapy completed (3) Abnormal uterine bleeding Is this a current diagnosis for this admission?: Yes Plan: Stable (4) Abnormal LFTs Is this a current diagnosis for this admission?: Yes Plan: Have been trending up slightly. With the bilirubin decreased slightly. (5) Protein-calorie malnutrition, severe Is this a current diagnosis for this admission?: Yes Plan: The patient is on TPN. I will discontinue this as she is now DNR and is scheduled to be comfort care on Wednesday or Wednesday. (6) Anemia Qualifiers: Anemia type: iron deficiency Iron deficiency anemia type: unspecified iron deficiency Qualified Code(s): D50.9 - Iron deficiency anemia, unspecified Is this a current diagnosis for this admission?: Yes Plan: Hemoglobin has dropped below 9.0 and is 8.9. We will no longer be performing laboratory tests with the anticipation of comfort care measures. (7) Biliary stricture Is this a current diagnosis for this admission?: Yes Plan: Surgically repaired but unfortunately postoperative complications (8) Sepsis with acute organ dysfunction and septic shock Qualifiers: Sepsis type: sepsis due to unspecified organism Severe sepsis acute organ dysfunction type: acute renal failure Acute renal failure type: with acute tubular necrosis Qualified Code(s): A41.9 - Sepsis, unspecified organism; R65.21 - Severe sepsis with septic shock; N17.0 - Acute kidney failure with tubular necrosis Is this a current diagnosis for this admission?: Yes Plan: The patient's postoperative course included an episode of sepsis. She has not fully recovered. She has had an extensive and prolonged recovery. But without meaningful recovery. I have had discussions with her family over the last day or 2. The current plan is to make her DO NOT RESUSCITATE today with a nticipation of comfort measures Wednesday night or Wednesday morning when family is able to be present. - Plan Summary Summary: 06/21/2020 After multiple discussions with the patient's daughter yesterday I reviewed the situation again as she was at the bedside. She states that her brother is coming up from [place]. He agrees with the overall plan of eventual comfort measures. For today the patient's daughter Jessica made the decision for DNR as opposed to full code. Once her brother arrives we will moved to comfort measures. Once we remove the BiPAP and utilize analgesics and benzodiazepines the expected demise will likely occur within 24 hours - Time Time Spent with patient: 15-24 minutes Anticipated Discharge Disposition: In house comfort care Anticipated Discharge Timeframe: within 72 hours
[2020-06-22] MEDS: INSULIN REG, HUMAN 100 UNIT/ML 3 ML VIAL (PYX) SUBCUT SCH ×2 (00:28→06:31)
[2020-06-22] MEDS: KETOROLAC TROMETHAMINE INJ/PF 30 MG/1 ML SDV IV SCH ×4 (04:10→20:59)
[2020-06-22] MEDS: ASCORBIC ACID 500 MG TABLET PO SCH ×2 (04:13→10:05)
[2020-06-22] MEDS: 1/2 NORMAL SALINE 1,000 ML IV PRN (07:48)
[2020-06-22] MEDS: ZINC SULFATE 220 MG CAPSULE PO SCH (10:06)
[2020-06-22] MEDS: LIDOCAINE 5% (700 MG) TRANSDERMAL ADH..PATCH TP SCH (10:06)
[2020-06-22] MEDS: NORMAL SALINE 10 ML SDV (SCHEDULED) IV SCH ×2 (10:07→22:17)
[2020-06-22] MEDS: FUROSEMIDE INJ/PF 20 MG/2 ML SDV IV SCH (10:07)
[2020-06-22] MEDS: THIAMINE HCL 200 MG in NORMAL SALINE 50 ML IV SCH (10:07)
[2020-06-22] MEDS ORDERED: 1/2 NORMAL SALINE 1,000 ML IV PRN (13:51)
--- NOTE | 2020-06-22 13:52 | PDOC PROGRESS REPORT ---
Subjective Progress Note for:: 06/22/20 Subjective:: The patient is obtunded. She is not opening her eyes to verbal stimulus. She is completely BiPAP dependent. Reason For Visit: BILIARY OBSTRUCTION S/P SURGERY Physical Exam Vital Signs: Temp Pulse Resp BP Pulse Ox 98.2 F 116 H 28 H 124/89 H 95 06/22/20 11:47 06/22/20 11:47 06/22/20 11:47 06/22/20 11:47 06/22/20 11:47 Intake & Output 06/21/20 06/22/20 06/23/20 06:59 06:59 06:59 Intake Total 2137 2104 1052 Output Total 885 935 5 Balance 1252 1169 1047 Weight 131.3 kg 134.3 kg General appearance: PRESENT: morbidly obese. ABSENT: cooperative - Obtunded Head exam: PRESENT: atraumatic, normocephalic Mouth exam: PRESENT: dry mucosa, tongue midline Teeth exam: PRESENT: poor dentation Respiratory exam: PRESENT: decreased breath sounds - At bases. Not a very strong inspiratory phase., tachypnea, other - Coarse breath sounds. ABSENT: rales, rhonchi, wheezes Cardiovascular exam: PRESENT: +S1, +S2, tachycardia. ABSENT: bradycardia, diastolic murmur, irregular rhythm, systolic murmur GI/Abdominal exam: PRESENT: hypoactive bowel sounds, soft, other - Pendulous abdomen. Midline surgical dressing.. ABSENT: tenderness - Patient not responding to palpation despite the incision Rectal exam: PRESENT: deferred Gentrourinary exam: PRESENT: indwelling catheter - Urine appears concentrated Extremities exam: PRESENT: +2 edema Musculoskeletal exam: ABSENT: ambulatory Neurological exam: ABSENT: awake Psychiatric exam: PRESENT: other - Obtunded Focused psych exam: PRESENT: other - Obtunded Skin exam: PRESENT: dry, normal color, warm Results Laboratory Results: 06/21/20 07:20 06/21/20 12:12 05/14/20 05/15/20 06/07/20 15:18 06:45 05:07 Troponin I < 0.012 < 0.012 NT-Pro-B Natriuret Pep 2990 H Impressions: Abdomen Ultrasound 05/07/20 04:47 IMPRESSION: 1. Dilation of the common bile duct again identified measuring 1.2 cm. 2. Hepatic steatosis and hepatomegaly. 3. Prior cholecystectomy. PICC Line Insertion 05/14/20 00:00 IMPRESSION: SUCCESSFUL PLACEMENT OF A 5 FR DUAL LUMEN 42 CM PICC IN THE LEFT BASILIC VEIN. Hepatobiliary Scan Nuclear Medicine 05/27/20 08:17 IMPRESSION: Prior cholecystectomy. No evidence of bile leak. Vascular Ultrasound 05/28/20 00:00 IMPRESSION: No evidence of portal vein thrombosis. Abdomen CT 05/29/20 00:00 IMPRESSION: 1. Progressive ascites. No focal drainable abscess. Surgical drain remains in place. 2. Worsening lung aeration. WBC Scan Nuclear Medicine 05/30/20 07:00 IMPRESSION: Diffuse uptake in the chest of uncertain etiology, inflammation versus infection. Abdomen/Pelvis CT 06/02/20 00:00 IMPRESSION: Slight interval increase in abdominal ascites without loculated collection. Subhepatic drain remains in place. No definite residual fluid in the gallbladder fossa. Bilateral pleural effusions, slightly increased on the left, with patchy airspace findings in the lung bases bilaterally. Pelvis Ultrasound 06/08/20 00:00 IMPRESSION: Technical limitations. Thickened endometrium. Differential is hyperplasia or carcinoma. Venous Doppler Study 06/13/20 00:00 IMPRESSION: NO EVIDENCE DVT OR SVT IN THE LEFT ARM. Chest X-Ray 06/18/20 00:00 IMPRESSION: Unchanged radiographic appearance of the chest. Assessment and Plan - Diagnosis (1) Sepsis with acute organ dysfunction and septic shock Qualifiers: Sepsis type: sepsis due to unspecified organism Severe sepsis acute organ dysfunction type: acute renal failure Acute renal failure type: with acute tubular necrosis Qualified Code(s): A41.9 - Sepsis, unspecified organism; R65.21 - Severe sepsis with septic shock; N17.0 - Acute kidney failure with tubular necrosis Is this a current diagnosis for this admission?: Yes Plan: The patient has been declining. Over the last several days there is been a significant decrease in mental status. She is completely dependent on BiPAP. Several discussions have been had with the patient's daughter. She had multiple discussions with her siblings. The patient's prospects are dismal. The patient is constantly in pain. The patient was made DO NOT RESUSCITATE and when her brother arrives from [place] we will commence with comfort measures only. This will be Wednesday evening or Wednesday morning most likely. (2) Leukocytosis Qualifiers: Leukocytosis type: unspecified Qualified Code(s): D72.829 - Elevated white blood cell count, unspecified Is this a current diagnosis for this admission?: Yes Plan: Over the last several days the white count started improving. It went down to 15.9 but the next day was starting up again at 16.3. With the change in the patient's status I will no longer be drawing blood. (3) Klebsiella pneumoniae pneumonia Qualifiers: Laterality: left Is this a current diagnosis for this admission?: Yes Plan: Antibiotic therapy was completed. Despite this her chest x-ray remains with an appearance of multifocal pneumonia. (4) Abnormal uterine bleeding Is this a current diagnosis for this admission?: Yes Plan: Stable (5) Abnormal LFTs Is this a current diagnosis for this admission?: Yes Plan: Elevated. No significant resolution. Likely related to underlying liver disease prior to her surgery. (6) Obesity hypoventilation syndrome Is this a current diagnosis for this admission?: Yes Plan: At 46 BMI and 137 kg as well as underlying pneumonia is very difficult for the patient to breathe. She has had increasing dependence on BiPAP. At this point the BiPAP mask cannot be removed without immediate oxygen desaturation. (7) Protein-calorie malnutrition, severe Is this a current diagnosis for this admission?: Yes Plan: The patient was receiving TPN. Despite this source of nutrition there is been no significant improvement in her condition. With the change in status and the eventual comfort care mode I have discontinued the TPN. (8) Anemia Qualifiers: Anemia type: iron deficiency Iron deficiency anemia type: unspecified iron deficiency Qualified Code(s): D50.9 - Iron deficiency anemia, unspecified Is this a current diagnosis for this admission?: Yes Plan: Hemoglobin has remained in the 9.6-8.6 range. No further laboratory studies at this time. (9) Biliary stricture Is this a current diagnosis for this admission?: Yes Plan: Surgically repaired. - Plan Summary Summary: 06/21/2020 After multiple discussions with the patient's daughter yesterday I reviewed the situation again as she was at the bedside. She states that her brother is coming up from [place]. He agrees with the overall plan of eventual comfort measures. For today the patient's daughter Jessica made the decision for DNR as opposed to full code. Once her brother arrives we will moved to comfort measures. Once we remove the BiPAP and utilize analgesics and benzodiazepines the expected demise will likely occur within 24 hours - Time Time Spent with patient: 15-24 minutes Medications reviewed and adjusted accordingly: Yes Anticipated Discharge Disposition: Comfort measures Anticipated Discharge Timeframe: within 48 hours
[2020-06-23] MEDS ORDERED: DEXTROSE 50%-WATER 25 GM/50 ML DISP.SYRIN IV ONE (00:02)
[2020-06-23] MEDS ORDERED: DEXTROSE 40% GEL 15 GM TUBE PO PRN (00:30)
[2020-06-23] MEDS ORDERED: DEXTROSE 40% GEL 15 GM TUBE X 2 PO PRN (00:30)
[2020-06-23] MEDS ORDERED: GLUCAGON,HUMAN RECOMB 1 MG INJ IM PRN (00:30)
[2020-06-23] MEDS ORDERED: DEXTROSE 50%-WATER SYRINGE 25 GM/50 ML DOSE IV PRN (00:30)
[2020-06-23] MEDS ORDERED: DEXTROSE 50%-WATER SYRINGE 12.5 GM/25 ML DOSE IV PRN (00:30)
[2020-06-23] MEDS ORDERED: DEXTROSE 5%-1/2 NORMAL SALINE 1,000 ML IV PRN (00:39)
[2020-06-23] MEDS: KETOROLAC TROMETHAMINE INJ/PF 30 MG/1 ML SDV IV SCH ×3 (03:26→14:07)
[2020-06-23 08:36] VITALS: BP 115/72
[2020-06-23] MEDS: FUROSEMIDE INJ/PF 20 MG/2 ML SDV IV SCH (10:08)
[2020-06-23] MEDS: NORMAL SALINE 10 ML SDV (SCHEDULED) IV SCH (10:10)
[2020-06-23] MEDS: LIDOCAINE 5% (700 MG) TRANSDERMAL ADH..PATCH TP SCH (10:11)
[2020-06-23] MEDS: METOPROLOL TARTRATE PF/INJ 5 MG/5 ML SDV IV PRN (14:07)
[2020-06-23] MEDS ORDERED: MORPHINE SULFATE 10 MG/ML INJ IV PRN ×2 (14:45)
[2020-06-23] MEDS ORDERED: LORAZEPAM INJ 2 MG/1 ML VIAL IV PRN (14:45)
--- NOTE | 2020-06-23 14:48 | PDOC PROGRESS REPORT ---
Subjective Progress Note for:: 06/23/20 Subjective:: Family present. Moving to comfort measures. Reason For Visit: BILIARY OBSTRUCTION S/P SURGERY Physical Exam Vital Signs: Temp Pulse Resp BP Pulse Ox 98.4 F 146 H 32 H 115/72 95 06/23/20 10:00 06/23/20 14:00 06/23/20 08:16 06/23/20 08:16 06/23/20 08:16 Intake & Output 06/22/20 06/23/20 06/24/20 06:59 06:59 06:59 Intake Total 2104 2369 Output Total 935 425 Balance 1169 1944 Weight 134.3 kg 137.1 kg Results Laboratory Results: 06/21/20 07:20 06/21/20 12:12 05/14/20 05/15/20 06/07/20 15:18 06:45 05:07 Troponin I < 0.012 < 0.012 NT-Pro-B Natriuret Pep 2990 H Impressions: Abdomen Ultrasound 05/07/20 04:47 IMPRESSION: 1. Dilation of the common bile duct again identified measuring 1.2 cm. 2. Hepatic steatosis and hepatomegaly. 3. Prior cholecystectomy. PICC Line Insertion 05/14/20 00:00 IMPRESSION: SUCCESSFUL PLACEMENT OF A 5 FR DUAL LUMEN 42 CM PICC IN THE LEFT BASILIC VEIN. Hepatobiliary Scan Nuclear Medicine 05/27/20 08:17 IMPRESSION: Prior cholecystectomy. No evidence of bile leak. Vascular Ultrasound 05/28/20 00:00 IMPRESSION: No evidence of portal vein thrombosis. Abdomen CT 05/29/20 00:00 IMPRESSION: 1. Progressive ascites. No focal drainable abscess. Surgical drain remains in place. 2. Worsening lung aeration. WBC Scan Nuclear Medicine 05/30/20 07:00 IMPRESSION: Diffuse uptake in the chest of uncertain etiology, inflammation versus infection. Abdomen/Pelvis CT 06/02/20 00:00 IMPRESSION: Slight interval increase in abdominal ascites without loculated collection. Subhepatic drain remains in place. No definite residual fluid in the gallbladder fossa. Bilateral pleural effusions, slightly increased on the left, with patchy airspace findings in the lung bases bilaterally. Pelvis Ultrasound 06/08/20 00:00 IMPRESSION: Technical limitations. Thickened endometrium. Differential is hyperplasia or carcinoma. Venous Doppler Study 06/13/20 00:00 IMPRESSION: NO EVIDENCE DVT OR SVT IN THE LEFT ARM. Chest X-Ray 06/18/20 00:00 IMPRESSION: Unchanged radiographic appearance of the chest. Assessment and Plan - Diagnosis (1) Sepsis with acute organ dysfunction and septic shock Qualifiers: Sepsis type: sepsis due to unspecified organism Severe sepsis acute organ dysfunction type: acute renal failure Acute renal failure type: with acute tubular necrosis Qualified Code(s): A41.9 - Sepsis, unspecified organism; R65.21 - Severe sepsis with septic shock; N17.0 - Acute kidney failure with tubular necrosis Is this a current diagnosis for this admission?: Yes (2) Leukocytosis Qualifiers: Leukocytosis type: unspecified Qualified Code(s): D72.829 - Elevated white blood cell count, unspecified Is this a current diagnosis for this admission?: Yes (3) Klebsiella pneumoniae pneumonia Qualifiers: Laterality: left Is this a current diagnosis for this admission?: Yes (4) Abnormal uterine bleeding Is this a current diagnosis for this admission?: Yes (5) Abnormal LFTs Is this a current diagnosis for this admission?: Yes (6) Obesity hypoventilation syndrome Is this a current diagnosis for this admission?: Yes (7) Protein-calorie malnutrition, severe Is this a current diagnosis for this admission?: Yes (8) Anemia Qualifiers: Anemia type: iron deficiency Iron deficiency anemia type: unspecified iron deficiency Qualified Code(s): D50.9 - Iron deficiency anemia, unspecified Is this a current diagnosis for this admission?: Yes (9) Biliary stricture Is this a current diagnosis for this admission?: Yes - Plan Summary Summary: 06/21/2020 After multiple discussions with the patient's daughter yesterday I reviewed the situation again as she was at the bedside. She states that her brother is coming up from [place]. He agrees with the overall plan of eventual comfort measures. For today the patient's daughter Jessica made the decision for DNR as opposed to full code. Once her brother arrives we will moved to comfort measures. Once we remove the BiPAP and utilize analgesics and benzodiazepines the expected demise will likely occur within 24 hours
--- NOTE | 2020-06-23 19:32 | Death Summary ---
Summary Date : 06/23/20 Time of :: 18:30 Autopsy: No - Prolonged Hospitalization Resuscitation Status: Comfort Measures Only Primary Care Provider: Dr. Patel Consulting Provider: To many physicians to name - Final Diagnosis (1) Sepsis with acute organ dysfunction and septic shock Is this a current diagnosis for this admission?: Yes (2) Peritonitis Is this a current diagnosis for this admission?: Yes (3) Leukocytosis Is this a current diagnosis for this admission?: Yes (4) Klebsiella pneumoniae pneumonia Is this a current diagnosis for this admission?: Yes (5) Abnormal uterine bleeding Is this a current diagnosis for this admission?: Yes (6) Abnormal LFTs Is this a current diagnosis for this admission?: Yes (7) Obesity hypoventilation syndrome Is this a current diagnosis for this admission?: Yes (8) Protein-calorie malnutrition, severe Is this a current diagnosis for this admission?: Yes (9) Anemia Is this a current diagnosis for this admission?: Yes (10) Biliary stricture Is this a current diagnosis for this admission?: Yes (11) Steatohepatitis Is this a current diagnosis for this admission?: Yes Hospital Course:: 49-year-old -[place] female smoker presented to [facility] emergency department on 05/07 with abdominal pain and decreased appetite. She was found to be dehydrated with abnormal LFTs, suspicious for a cholestatic pattern. With a history of gastric bypass (2003), the patient underwent surgical evaluation by Dr. Hubbard, which included intraoperative liver biopsy and choledochoduodenostomy. She was started on Unasyn/Flagyl postoperatively, and the patient has been through a succession of antimicrobials, including Zosyn, meropenem, linezolid and micafungin. She was transferred to the ICU on 05/29 due to concerns for worsening sepsis. She is afebrile and not requiring any vasopressor support; however, she has a waxing and waning leukocytosis (neutrophilia without bandemia). C. difficile has been checked twice and was found to be negative. 06/08: Case discussed with Dr. Hubbard. WBC count up to 35.2 today. Hemoglobin 6.9. Platelets 63. On linezolid, unclear clinical indication at this point. Nursing staff reports that the patient is having bloody output from the vagina. Patient reports last known menstrual flow phase was 6 years ago. She does report having been informed of "fibroids" and denies any other history of dysfunctional uterine bleeding. 06/09: Overnight, the patient became hypotensive and ashen in appearance. Also, mild lethargy was reported. Hemoglobin 6.95.0. She received 2 units PRBC with subsequent improvement in total status and hemodynamics. Not on pressors. She continues to have menorrhagia. In the interim, I was able to discuss the patient's status with the patient's daughter, who reports that the patient must have been confused yesterday. She has continued to have regular menstrual flow phases on a monthly basis. She has a longstanding history of menorrhagia. She did confirm that she had been diagnosed with "fibroids". Today, she is awake and alert. WBC 50.3. 06/10: DIGESTER OPERATOR HELPER input appreciated. WBC 40.4 today. Hemoglobin 8.9 after an additional 2 units PRBC yesterday. Platelets 92. Mentating well. Nurse reports that menstrual flow may be abating. Case also discussed with Dr. Garcia in the interim. 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 Case also discussed with Dr. Hubbard. Of note, LFTs are elevated (no clear pattern, hepatotoxic vs mixed, hepatotoxic/cholestatic). Had speech/swallow evaluation this morning. Was able to tolerate thin liquids and mechanical soft diet. Gram stain of sputum (06/07/2020) isolated Pseudomonas fluorescens/putida group, Klebsiella pneumoniae and Ashlie albicans. Abdominal fluid and ROSALVA drain samples (05/31/2020) isolated E coli and yeast (not Ashlie albicans). She remains on Rocephin and micafungin. 06/11: Case discussed with Dr. Hubbard. We will plan on discontinuing micafungin today. WBC 40.4>40.8. On room air. Afebrile. Hemoglobin 9.8. Now on Provera to help control menorrhagia. Mentating well. Off TPN now. Seems to be tolerating p.o. intake (modest). Visibly severely edematous. Still on Rocephin/micafungin. 06/12: WBC 40.837.5. Getting albumin/Lasix "push pull". On 4 LPM via nasal cannula, SPO2 99%. Afebrile. Taking well. Still on Rocephin. [id number]-ebut-old female in the hospital for more than a mild came in on with abdominal pain and a decreased appetite. Found to have abnormal LFTs suspicion for cholestatic pattern. Patient has a prior history of gastric bypass in 2003. Consultation with Dr. Hubbard was done and that the patient underwent intraoperative liver biopsy and choledocho duodenostomy. No gallstones were found no obstruction was found. Patient was started on IV Unasyn and Flagyl postoperatively. Patient is on multiple antibiotics including Zosyn, meropenem, linezolid, micafungin. Patient was moved to ICU on 729 because of worsening sepsis. Patient has waxing and waning leukocytosis latest WBC count is 37,500. C. difficile was done which was negative during the hospital stay. At this time linozelide is discontinued ..WBC count is 37,500 today's labs are pending. Discussed the case with Dr. Hubbard his recommendation is to start on TPN, give IV albumin, IV Lasix, physical therapy. Those recommendations will be implemented. As per pharmacy recommendations the plan is to continue Protonix because patient is going to get famotidine with TPN. 06/14-patient is comfortably in the bed not in distress. No acute events in the last 24 hours. Febrile. Patient is receiving TPN and refusing oral feeds. Patient received albumin, IV Lasix yesterday. Upper and lower extremity edema still persisting negative balance of 2.1 L achieved yesterday. Surgical team following the patient LFTs are slightly improved. WBC count improved to 23,000. Potassium is 3.5 magnesium is 1.6 which is going to be supplemented. 06/15/2020-no acute events in the last 24 hours. WBC count came down to 21,300. Afebrile. Dr. Hubbard is at bedside he drained 50 cc of purulent material from abdominal wall midline wound. Dr. Hubbard packed the wound with saline soaked gauze. Patient is still on BiPAP, plan is to do the ABG this morning if the ABG is good plan is to place the oxygen via nasal cannula. 06/16/20-patient is comfortably in the bed not in distress. Communicating okay. Denies any complaints. Patient is receiving daily dressings for the abdominal wall wound. WBC count is 22,400, patient is afebrile. Receiving IV Rocephin at this time. Plan is to give IV albumin supplementation. On examination upper extremity edema resolved, lower extremity edema persisting. 06/[id number]-old female admitted with abdominal pain , because of the abnormal LFTs there is a suspicion for cholestatic pattern. Patient had a liver biopsy and choledochoduodenostomy. Patient is malnourished getting TPN refusing to take oral medications refusing to eat. Patient is receiving IV albumin and on daily Lasix. Upper extremity edema resolved, lower extremity edema resolving. Patient has a Damico's catheter. pt has a drainage tube at the abdominal wall. The abdominal wound wound with pussy drainage 2 days ago receiving daily dressings. At the time of my examination patient is on BiPAP. WBC count slightly improved to 20,400 today. Glucose is 127. At this time patient CODE STATUS is full code. 06/18/2020 through 06/23/2020 The patient had continued to decline almost daily. Her white blood cell count transiently improved and then continue to increase. Her total bilirubin transiently dropped and then continue to increase. Transaminases remained elevated. She became more and more dependent on the BiPAP until over the last 3 days she could not come off of the BiPAP at all. Nutrition continued by TPN. After many discussions with the family (primarily her daughter Jessica) the patient changed to DNR status on 06/21/2020. The plan was to move to comfort measures only once the family was able to arrive [place] of [place]. Alex saldana multiple family members were present. I checked with the patient's daughter and she stated that the people who need to be here were here. This also include the patient's son. Once I was given the permission to proceed I discontinued all of her medications including the BiPAP. She had morphine, Tylenol and lorazepam available. I made sure that we gave a dose of IV morphine before removing the BiPAP. Then liberal doses of all of her medications were available. The patient at 18:30 June 23, 2020 Multiple pathologies contributed to her . Sepsis secondary to Multiple infections including VRE in the urine Pneumonia with Pseudomonas and Klebsiella as well as yeast Peritonitis Acute liver failure Acute kidney failure Steatohepatitis with fibrosis Anasarca Acute respiratory failure with hypoxia
== END 2020-06-23 23:00 | DRG 408 ==
LOC: ER 21:21 → EH 05-07 10:55 → 4S 05-07 13:36 → ICU 05-29 18:58 → 3W 06-12 19:17 → UNDODISIN 06-14 12:13
PROVIDERS: ADMIT Family Medicine; ATTEND Hospitalist
PROC: 30233N1 Transfusion of Nonautologous Red Blood Cells into Peripheral Vein, Percutaneous Approach (ICD-10-PCS; 2020-05-07)
PROC: 0FB10ZX Excision of Right Lobe Liver, Open Approach, Diagnostic (ICD-10-PCS; 2020-05-09)
PROC: 0WQF0ZZ Repair Abdominal Wall, Open Approach (ICD-10-PCS; 2020-05-09)
PROC: 0F1 Hepatobiliary System and Pancreas, Bypass (ICD-10-PCS; principal; 2020-05-09 11:30)
PROC: 03HY32Z Insertion of Monitoring Device into Upper Artery, Percutaneous Approach (ICD-10-PCS; 2020-05-29)
PROC: 02HV33Z Insertion of Infusion Device into Superior Vena Cava, Percutaneous Approach (ICD-10-PCS; 2020-06-01)
PROC: 3E0436Z Introduction of Nutritional Substance into Central Vein, Percutaneous Approach (ICD-10-PCS; 2020-06-05)
PROC: 5A09557 Assistance with Respiratory Ventilation, Greater than 96 Consecutive Hours, Continuous Positive Airway Pressure (ICD-10-PCS; 2020-06-14)
DX: K80.51 Calculus of bile duct without cholangitis or cholecystitis with obstruction (principal); K65.9 Peritonitis, unspecified; J15.0 Pneumonia due to Klebsiella pneumoniae; E43 Unspecified severe protein-calorie malnutrition; J96.01 Acute respiratory failure with hypoxia; J15.1 Pneumonia due to Pseudomonas; N17.0 Acute kidney failure with tubular necrosis; T81.12XA Postprocedural septic shock, initial encounter; E66.2 Morbid (severe) obesity with alveolar hypoventilation; Z16.21 Resistance to vancomycin; B49 Unspecified mycosis; N39.0 Urinary tract infection, site not specified; E87.1 Hypo-osmolality and hyponatremia; E87.2 Acidosis; K86.1 Other chronic pancreatitis; K92.1 Melena; R18.8 Other ascites; T81.44XA Sepsis following a procedure, initial encounter; K83.09 Other cholangitis; Z68.42 Body mass index [BMI] 45.0-49.9, adult; K83.1 Obstruction of bile duct; R94.5 Abnormal results of liver function studies; K75.81 Nonalcoholic steatohepatitis (NASH); E86.0 Dehydration; B96.20 Unspecified Escherichia coli [E. coli] as the cause of diseases classified elsewhere; B96.1 Klebsiella pneumoniae [K. pneumoniae] as the cause of diseases classified elsewhere; F17.210 Nicotine dependence, cigarettes, uncomplicated; B96.5 Pseudomonas (aeruginosa) (mallei) (pseudomallei) as the cause of diseases classified elsewhere; B96.89 Other specified bacterial agents as the cause of diseases classified elsewhere; N92.4 Excessive bleeding in the premenopausal period; B95.2 Enterococcus as the cause of diseases classified elsewhere; D50.9 Iron deficiency anemia, unspecified; R60.9 Edema, unspecified; K59.00 Constipation, unspecified; E87.6 Hypokalemia; G89.18 Other acute postprocedural pain; K43.9 Ventral hernia without obstruction or gangrene; R74.0 Nonspecific elevation of levels of transaminase and lactic acid dehydrogenase [LDH]; D50.0 Iron deficiency anemia secondary to blood loss (chronic); K74.5 Biliary cirrhosis, unspecified; Z78.1 Physical restraint status; Z11.59 Encounter for screening for other viral diseases; Z98.84 Bariatric surgery status; Z79.899 Other long term (current) drug therapy; Z91.14 Patient's other noncompliance with medication regimen; Z91.11 Patient's noncompliance with dietary regimen
CPT/HCPCS: 00790; 36415; 36430; 36573; 36600; 36620; 71045; 74150; 74176; 74177; 76705; 76856; 78226; 78802; 80048; 80053; 80061; 80074; 80076; 80307; 81001; 81206; 81207; 81270; 82140; 82150; 82270; 82306; 82525; 82570; 82607; 82728; 82746; 82803; 82962; 82977; 83540; 83550; 83605; 83690; 83735; 83880; 84100; 84134; 84145; 84300; 84443; 84478; 84484; 84630; 85025; 85027; 85045; 85379; 85384; 85610; 85652; 85730; 86022; 86140; 86850; 86870; 86900; 86901; 86902; 86920; 86922; 87040; 87070; 87075; 87077; 87086; 87088; 87186; 87205; 87324; 87449; 87635; 88184; 88185; 88305; 88307; 88313; 93005; 93010; 93306; 93970; 93971; 93976; 94660; 94799; 96361; 96365; 96375; 96376; 99285; 99291; 99292; A9537; A9569; C1758; C9113; C9290; C9803; J0295; J0690; J0696; J1100; J1170; J1450; J1642; J1644; J1720; J1756; J1815; J1885; J1940; J2020; J2060; J2185; J2248; J2250; J2270; J2310; J2370; J2405; J2543; J2704; J2710; J2997; J3010; J3411; J3420; J3430; J3475; J3480; J3490; J7030; J7040; J7050; J7060; J7120; P9016; P9041; P9047; Q9969; S0028